=== PATIENT | male | born 1970 | race Caucasian/White ===

== ENCOUNTER → 2020-01-19 10:24 | Outpatient (BNVA) | payer MEDICARE, MEDICAID, SELFPAY | PROVIDERS: PCP Internal Medicine; Referring Provider Internal Medicine; Visit Provider Family Medicine Adult Medicine | DX: E11.40 Type 2 diabetes mellitus with diabetic neuropathy, unspecified (principal); Z79.4 Long term (current) use of insulin; E66.01 Morbid (severe) obesity due to excess calories; Z68.44 Body mass index [BMI] 60.0-69.9, adult; F17.210 Nicotine dependence, cigarettes, uncomplicated; Z79.891 Long term (current) use of opiate analgesic; Z89.511 Acquired absence of right leg below knee; Z99.3 Dependence on wheelchair | CPT/HCPCS: 99204 ==

== ENCOUNTER → 2020-02-21 11:15 | Outpatient (BNVA) | payer MEDICARE, MEDICAID, SELFPAY | PROVIDERS: PCP Internal Medicine; Referring Provider Internal Medicine; Visit Provider Family Medicine Adult Medicine | DX: G54.6 Phantom limb syndrome with pain (principal) | CPT/HCPCS: 99212 ==

== ENCOUNTER → 2020-03-22 11:08 | Outpatient (BNVA) | payer MEDICARE, MEDICAID, SELFPAY | PROVIDERS: PCP Internal Medicine; Referring Provider Internal Medicine; Visit Provider Family Medicine Adult Medicine | DX: G54.6 Phantom limb syndrome with pain (principal); E11.40 Type 2 diabetes mellitus with diabetic neuropathy, unspecified | CPT/HCPCS: 99212 ==

== ENCOUNTER 2020-04-06 17:04 | Inpatient (IN) | payer MEDICARE, MEDICAID, SELFPAY ==
--- NOTE | 2020-04-06 17:17 | XR_ITS ---
EXAMINATION: XR CHEST CLINICAL INFORMATION: Shortness of breath COMPARISON: None TECHNIQUE: Frontal view of the chest was obtained. FINDINGS: Multiple cardiac leads and wires overlie the chest. Evaluation is somewhat limited by technique and patient's body habitus. Moderate to severe cardiomegaly is noted there is some diffuse mild interstitial and vascular prominence suggesting vascular congestion and interstitial edema. No convincing evidence of overt changes of pulmonary edema. No significant pleural effusions or pneumothorax. No dense focal consolidation is noted. Regional skeleton appears intact. XR/XR chest 1V IMPRESSION: Cardiomegaly. Findings suggestive of pulmonary venous congestion and interstitial edema without definite changes to suggest overt pulmonary edema.
--- NOTE | 2020-04-06 17:17 | ECG_ITS ---
Test Reason : SOB Blood Pressure : / mmHG Vent. Rate : 088 BPM Atrial Rate : 088 BPM P-R Int : 152 ms QRS Dur : 086 ms QT Int : 336 ms P-R-T Axes : -26 040 096 degrees QTc Int : 406 ms Normal sinus rhythm Nonspecific T wave abnormality Abnormal ECG No previous ECGs available Referred By: Julien Cantu Electronically Signed By:OXANA PEDERSEN MD
--- NOTE | 2020-04-06 17:20 | ED_ITS ---
HPI - General Adult General Chief complaint: Upper Respiratory Symptoms Stated complaint: diff breathing Time Seen by Provider: 04/06/20 17:17 Source: patient and EMS Mode of arrival: EMS Limitations: no limitations History of Present Illness HPI narrative: 49-year-old male overweight, history of complicated diabetes, history of chronic pain syndrome, patient was started on Belbuca medication to help with weaning off narcotic a month ago, patient started to have difficulty breathing for a month, that slowly and progressively getting worse for the past month, patient think it is related to the new medicine that he was started months ago. Patient declined headache, chest pain, or abdominal pain. Patient is about 450 lb cannot tell if he is retaining fluid in the legs. Related Data Home Medications Medication Instructions Recorded Confirmed acetaminophen 500 mg tablet 1,000 mg PO Q8-10H PRN 01/18/20 04/06/20 aspirin 81 mg tablet,delayed 81 mg PO DAILY 01/18/20 04/06/20 release calcium carbonate 500 mg calcium 500 mg PO DAILY 01/18/20 04/06/20 (1,250 mg) tablet cholecalciferol (vitamin D3) 25 25 mcg PO DAILY 01/18/20 04/06/20 mcg (1,000 unit) capsule clonidine HCl 0.1 mg tablet 0.1 mg PO BID 01/18/20 04/06/20 cyclobenzaprine 5 mg tablet 5 mg PO TID PRN 01/18/20 04/06/20 ferrous sulfate 325 mg (65 mg 325 mg PO DAILY 01/18/20 04/06/20 iron) tablet fluticasone propionate 50 1 spray INTRANASAL BID 01/18/20 04/06/20 mcg/actuation nasal spray,suspension insulin regular hum U-500 conc 175 unit SUBCUT BID ml 01/18/20 04/06/20 melatonin 3 mg capsule 6 mg PO BEDTIME PRN 01/18/20 04/06/20 metformin 500 mg tablet 500 mg PO DAILY 01/18/20 04/06/20 omeprazole 20 mg capsule,delayed 20 mg PO BID 01/18/20 04/06/20 release pravastatin 10 mg tablet 10 mg PO BEDTIME 01/18/20 04/06/20 topiramate 100 mg tablet 100 mg PO BEDTIME 01/18/20 04/06/20 torsemide 20 mg tablet 60 mg PO DAILY tab 01/18/20 04/06/20 trazodone 50 mg tablet 50 mg PO BEDTIME PRN 01/18/20 04/06/20 facial-body wipes #384 ea 02/20/20 03/22/20 levothyroxine 37.5 mcg PO DAILY 04/06/20 04/06/20 loperamide 2 PO Q4-5H 04/06/20 Previous Rx's Medication Instructions Recorded naloxone 4 mg/actuation nasal spray 4 mg INTRANASAL Q2M PRN #2 ea 01/20/20 dicyclomine 20 mg tablet 20 mg PO QID #120 tab 02/09/20 disposable gloves #1000 ea 02/20/20 miscellaneous medical supply See Rx Instructions MISCELLANEOUS 03/12/20 .COMPLEX #1 ea buprenorphine HCl 600 mcg buccal 600 mcg BUCCAL Q12H 30 Days #60 ea 03/22/20 film morphine 15 mg immediate release 15 mg PO Q6H PRN 30 Days #120 tab 03/22/20 tablet Allergies Allergy/AdvReac Type Severity Reaction Status Date / Time penicillin V Allergy Unknown hives Verified 03/22/20 11:33 Review of Systems Review of Systems: All other systems are reviewed and are negative Constitutional: Reports as per HPI and Reports no additional constitutional complaints Eyes: Reports as per HPI and Reports no additional eye complaints Reports system reviewed and no additional complaints, except as documented Cardiovascular: Reports as per HPI and Reports no additional cardiovascular complaints Respiratory: Reports as per HPI and Reports no additional respiratory complaints Gastrointestinal: Reports as per HPI and Reports no additional gastrointestinal complaints Genitourinary: Reports no additional female genitourinary complaints Musculoskeletal: Reports no additional musculoskeletal complaints Skin/Breast: Reports system reviewed and no additional complaints, except as docu Psychiatric: Reports no additional psychiatric complaints Endocrine: Reports no additional endocrine complaints Hematologic/Lymphatic: Reports no additional hematologic/lymphatic complaints Allergic/Immunologic: Reports no additional allergic/immunologic complaints Reports system reviewed and no additional complaints, except as documented and Reports Abnormal speech present [facility] Past Medical History Medical History Diabetic neuropathy Morbid obesity Phantom limb pain Surgical History History of right lower limb amputation Hx of cholecystectomy Family History Family History Father No problems noted. Mother No problems noted. Social History Social History Alcohol intake: unknown Smoking Status: Heavy tobacco smoker Tobacco Type: Cigarette Packs Per Day: 3 Cigarettes Per Day: 60.0 Years Smoked: 25 Smoked in Last 30 Days: No Use of substances other than those prescribed or required for medical reasons: Yes Substance Use Type: Opiates Substance Use Frequency: Chronic Longstanding Last Used Substance: Just Prior to Admission Advance Directives: No Advance Directives Information Provided: Yes Physical Exam Vital Signs: Vital Signs: Last Vital Signs Temp 98.0 F 04/06/20 19:13 Pulse 84 04/06/20 19:13 Resp 20 04/06/20 19:13 BP 127/47 L 04/06/20 19:13 Pulse Ox 95 04/06/20 19:13 Body Mass Index 73.0 Vital signs have been reviewed as normal and appeared to be correct. Blood pressure normal. Heart rate normal. Respiration rate normal. Temperature n ormal. Oxygen saturation normal. Appearance: Alert. Oriented X3. No acute distress. Morbid obesity Head: Normal external exam. Normocephalic. Atraumatic. No Mcmillan signs noted. No raccoon eyes noted Eyes: PERRLA. EOMI. Conjunctiva and sclera normal. Eyelids normal. ENT: EAC normal. TM's Normal. Pharynx normal. Uvula midline. Moist mucous membranes. No trismus noted. No drooling noted. No muffled voice noted. Neck: Normal inspection. Neck supple. FROM. No adenopathy. Thyroid Normal. No meningeal signs. No neck mass noted. CVS: Normal heart rate and rhythm. Heart sound normal. No murmurs noted. Pulses normal throughout. Respiratory: No respiratory distress. Painless inspiration. Breath sounds normal. No wheezes/rales/rhonchi noted. Chest nontender. No accessory muscle usage noted or decreased air movement noted. Abdomen: Soft and nontender. Bowel sounds normal in all 4 quadrants. No distention noted. No organomegaly noted. No visible injury noted. Back: No CVA tenderness. Full range of motion noted. Skin: Skin warm and dry. Normal skin color. Normal skin turgor. No rashes/lesions/lacerations noted. Extremities: No lower extremity edema. Extremities exhibit normal range of motion. Extremities nontender. Right BKA. Neuro: Oriented X 3. No motor deficit. No sensory deficit. Reflexes normal. Course Course Course Narrative: Assessment and plan. This is a 49-year-old male morbid obese, with sleep apnea, presented with 4 weeks of intermittent shortness of breath. Patient was just started on belbuca about 4 weeks ago when the symptoms started. X-ray is suspecting congestive heart failure. Will admit the patient for further cardiac workup. Medical Decision Making Lab Data Result diagrams: 04/06/20 18:32 04/06/20 19:34 Labs: Lab Results 04/06/20 04/06/20 04/06/20 Range/Units 17:50 17:50 17:50 WBC Cancelled RBC Cancelled Hgb Cancelled Hct Cancelled MCV Cancelled MCH Cancelled MCHC Cancelled RDW Cancelled Plt Count Cancelled MPV Cancelled Immature Gran % (Auto) Cancelled Neut % (Auto) Cancelled Lymph % (Auto) Cancelled Parke % (Auto) Cancelled Eos % (Auto) Cancelled Baso % (Auto) Cancelled Lymph # (Auto) Cancelled Parke # (Auto) Cancelled Eos # (Auto) Cancelled Baso # (Auto) Cancelled Abs Immat Gran (auto) Cancelled Absolute Neuts (auto) Cancelled Absolute Nucleated RBC Cancelled Nucleated RBC % (auto) Cancelled Smear Tech's Comments D-Dimer VBG pH (7.32-7.43) VBG pCO2 mmhg VBG pO2 mmhg VBG HCO3 mmol/L VBG O2 Saturation % VBG Base Excess mmol/L Sodium Cancelled Potassium Cancelled Chloride Cancelled Carbon Dioxide Cancelled Anion Gap Cancelled BUN Cancelled Creatinine Cancelled Estim Creat Clear Calc Cancelled Estimated GFR Cancelled Random Glucose Cancelled Calcium Cancelled Total Bilirubin Cancelled Direct Bilirubin Cancelled AST Cancelled ALT Cancelled Alkaline Phosphatase Cancelled Troponin I High Sens 13.0 (<3.5-35.0) ng/L B-Natriuretic Peptide 108 H (<100) pg/mL Total Protein Cancelled Albumin Cancelled Lipase Cancelled Urine Color Urine Appearance Urine pH (5.0-8.0) Ur Specific Dr[place] (1.005-1.025) Urine Protein (NEG-TRACE) MG/DL Urine Glucose (UA) (NEG) MG/DL Urine Ketones (NEG) MG/DL Urine Blood (NEG) Urine Nitrite (NEG) Ur Leukocyte Esterase (NEG) Urine RBC (0) /HPF Urine WBC (0-4) /HPF Ur Squamous Epith Cells /LPF Urine Bacteria /LPF COVID-19 (PINKY) (Negative) COVID-19 Clin Com 04/06/20 04/06/20 04/06/20 Range/Units 17:50 17:54 18:26 WBC RBC Hgb Hct MCV MCH MCHC RDW Plt Count MPV Immature Gran % (Auto) Neut % (Auto) Lymph % (Auto) Parke % (Auto) Eos % (Auto) Baso % (Auto) Lymph # (Auto) Parke # (Auto) Eos # (Auto) Baso # (Auto) Abs Immat Gran (auto) Absolute Neuts (auto) Absolute Nucleated RBC Nucleated RBC % (auto) Smear Tech's Comments D-Dimer Cancelled VBG pH (7.32-7.43) VBG pCO2 mmhg VBG pO2 mmhg VBG HCO3 mmol/L VBG O2 Saturation % VBG Base Excess mmol/L Sodium Potassium Chloride Carbon Dioxide Anion Gap BUN Creatinine Estim Creat Clear Calc Estimated GFR Random Glucose Calcium Total Bilirubin Direct Bilirubin AST ALT Alkaline Phosphatase Troponin I High Sens (<3.5-35.0) ng/L B-Natriuretic Peptide (<100) pg/mL Total Protein Albumin Lipase Urine Color STRAW Urine Appearance CLEAR Urine pH 6.0 (5.0-8.0) Ur Specific [place] 1.015 (1.005-1.025) Urine Protein 2+ H (NEG-TRACE) MG/DL Urine Glucose (UA) NEG (NEG) MG/DL Urine Ketones NEG (NEG) MG/DL Urine Blood 2+ H (NEG) Urine Nitrite NEG (NEG) Ur Leukocyte Esterase NEG (NEG) Urine RBC 1-4 (0) /HPF Urine WBC 0-2 (0-4) /HPF Ur Squamous Epith Cells TRACE /LPF Urine Bacteria NONE /LPF COVID-19 (PINKY) Negative (Negative) COVID-19 Clin Com See Note 04/06/20 04/06/20 04/06/20 Range/Units 18:32 18:32 18:32 WBC 4.2 L RBC 3.61 L Hgb 11.1 L Hct 37.2 L MCV 103.0 H MCH 30.7 MCHC 29.8 L RDW 14.3 Plt Count 105 L MPV 9.3 L Immature Gran % (Auto) 0.5 H Neut % (Auto) 79.6 H Lymph % (Auto) 9.8 L Parke % (Auto) 8.4 Eos % (Auto) 1.7 Baso % (Auto) 0.0 Lymph # (Auto) 0.4 L Parke # (Auto) 0.4 Eos # (Auto) 0.1 Baso # (Auto) 0.0 Abs Immat Gran (auto) 0.02 Absolute Neuts (auto) 3.3 Absolute Nucleated RBC 0.020 H Nucleated RBC % (auto) 0.5 H Smear Tech's Comments VERIFIED D-Dimer 740 VBG pH 7.28 L (7.32-7.43) VBG pCO2 61 mmhg VBG pO2 51 mmhg VBG HCO3 28 mmol/L VBG O2 Saturation 81.6 % VBG Base Excess -0.1 mmol/L Sodium Potassium Chloride Carbon Dioxide Anion Gap BUN Creatinine Estim Creat Clear Calc Estimated GFR Random Glucose Calcium Total Bilirubin Direct Bilirubin AST ALT Alkaline Phosphatase Troponin I High Sens (<3.5-35.0) ng/L B-Natriuretic Peptide (<100) pg/mL Total Protein Albumin Lipase Urine Color Urine Appearance Urine pH (5.0-8.0) Ur Specific Dr[place] (1.005-1.025) Urine Protein (NEG-TRACE) MG/DL Urine Glucose (UA) (NEG) MG/DL Urine Ketones (NEG) MG/DL Urine Blood (NEG) Urine Nitrite (NEG) Ur Leukocyte Esterase (NEG) Urine RBC (0) /HPF Urine WBC (0-4) /HPF Ur Squamous Epith Cells /LPF Urine Bacteria /LPF COVID-19 (PINKY) (Negative) COVID-19 Clin Com 04/06/20 Range/Units 18:32 WBC RBC Hgb Hct MCV MCH MCHC RDW Plt Count MPV Immature Gran % (Auto) Neut % (Auto) Lymph % (Auto) Parke % (Auto) Eos % (Auto) Baso % (Auto) Lymph # (Auto) Parke # (Auto) Eos # (Auto) Baso # (Auto) Abs Immat Gran (auto) Absolute Neuts (auto) Absolute Nucleated RBC Nucleated RBC % (auto) Smear Tech's Comments D-Dimer VBG pH (7.32-7.43) VBG pCO2 mmhg VBG pO2 mmhg VBG HCO3 mmol/L VBG O2 Saturation % VBG Base Excess mmol/L Sodium Cancelled Potassium Cancelled Chloride Cancelled Carbon Dioxide Cancelled Anion Gap Cancelled BUN Cancelled Creatinine Cancelled Estim Creat Clear Calc Cancelled Estimated GFR Cancelled Random Glucose Cancelled Calcium Cancelled Total Bilirubin Cancelled Direct Bilirubin Cancelled AST Cancelled ALT Cancelled Alkaline Phosphatase Cancelled Troponin I High Sens (<3.5-35.0) ng/L B-Natriuretic Peptide (<100) pg/mL Total Protein Cancelled Albumin Cancelled Lipase Cancelled Urine Color Urine Appearance Urine pH (5.0-8.0) Ur Specific [place] (1.005-1.025) Urine Protein (NEG-TRACE) MG/DL Urine Glucose (UA) (NEG) MG/DL Urine Ketones (NEG) MG/DL Urine Blood (NEG) Urine Nitrite (NEG) Ur Leukocyte Esterase (NEG) Urine RBC (0) /HPF Urine WBC (0-4) /HPF Ur Squamous Epith Cells /LPF Urine Bacteria /LPF COVID-19 (PINKY) (Negative) COVID-19 Clin Com Imaging Data Chest x-ray: Radiologist's impression: Cardiomegaly. Findings suggestive of pulmonary venous congestion and interstitial edema without definite changes to suggest overt pulmonary edema. ECG Data Interpretation: Normal sinus rhythm at 88 beats per minute, normal axis deviation, normal intervals, nonspecific T-wave changes in V5 and V6. Discharge Plan Discharge Clinical Impression: Morbid obesity, Dyspnea, Congestive heart failure Patient Disposition: Admitted As Inpatient Prescriptions: No Action Narcan 4 mg/actuation spray,non-aerosol 4 mg intranasal Q2M PRN (Reason: opioid overdose) Qty: 2 RF: 1 dicyclomine 20 mg tablet 20 mg PO QID Qty: 120 RF: 8 (DME) facial-body wipes Misc See Rx Instructions .ROUTE .MEDSUPPLY Qty: 384 RF: 0 (DME) disposable gloves [Nitrile Exam Gloves] Misc See Rx Instructions .ROUTE .MEDSUPPLY Qty: 1000 RF: 0 miscellaneous medical supply Misc See Rx Instructions miscellaneous .COMPLEX Qty: 1 RF: 0 loperamide 1 tab 2 PO Q4-5H RF: 0 levothyroxine 75 mcg tablet 37.5 mcg PO DAILY RF: 0 acetaminophen [Tylenol Extra Strength] 500 mg tablet 1,000 mg PO Q8-10H PRN (Reason: Pain) RF: 0 aspirin [Adult Low Dose Aspirin] 81 mg tablet,delayed release (DR/EC) 81 mg PO DAILY RF: 0 calcium carbonate 500 mg calcium (1,250 mg) tablet 500 mg PO DAILY RF: 0 clonidine HCl 0.1 mg tablet 0.1 mg PO BID RF: 0 cyclobenzaprine 5 mg tablet 5 mg PO TID PRN (Reason: Pain) RF: 0 ferrous sulfate 325 mg (65 mg iron) tablet 325 mg PO DAILY RF: 0 fluticasone propionate [Allergy Relief (fluticasone)] 50 mcg/actuation spray,suspension 1 spray intranasal BID RF: 0 Humulin R U-500 (Conc) Kwikpen 500 unit/mL (3 mL) insulin pen 175 unit subcut BID RF: 0 melatonin 3 mg capsule 6 mg PO BEDTIME PRN (Reason: Sleep) RF: 0 metformin 500 mg tablet 500 mg PO DAILY RF: 0 omeprazole 20 mg capsule,delayed release(DR/EC) 20 mg PO BID RF: 0 pravastatin 10 mg tablet 10 mg PO BEDTIME RF: 0 topiramate 100 mg tablet 100 mg PO BEDTIME RF: 0 torsemide 20 mg tablet 60 mg PO DAILY RF: 0 cholecalciferol (vitamin D3) 25 mcg (1,000 unit) capsule 25 mcg PO DAILY RF: 0 trazodone 50 mg tablet 50 mg PO BEDTIME PRN (Reason: Sleep) RF: 0 morphine 15 mg tablet 15 mg PO Q6H PRN (Reason: pain) 30 Days Qty: 120 RF: 0 Belbuca 600 mcg film 600 mcg buccal Q12H 30 Days Qty: 60 RF: 0
[2020-04-06 17:21] VITALS: BP 137/54; PULSE 85; RESP 25; TEMP 36.7; O2SAT 90; BMI 73.0
[2020-04-06 18:00] VITALS: PULSE 85; O2SAT 90
[2020-04-06] MEDS: Albuterol/Iprat 2.5/0.5MG 3 ML AMPUL.NEB INHALE (18:00)
[2020-04-06 18:02] VITALS: PULSE 86; O2SAT 90
[2020-04-06 18:17] LABS: COVID-19 Test Negative (Negative)
[2020-04-06 18:25] LABS: B Type Natriuretic Peptide 108 pg/mL (<100)
[2020-04-06 18:40] LABS: Glucose Urine UA NEG (NEG); Leukocyte Esterase Urine NEG (NEG); Nitrite Urine NEG (NEG); Specific Gravity - Urine 1.015 (1.005-1.025); Urine Blood 2+ (NEG); Urine Ketones NEG (NEG); Urine Protein 2+ MG/DL (NEG-TRACE)
[2020-04-06 18:41] LABS: Eosinophils Absolute Auto 0.1 X10*3/uL (0.0-0.4); Eosinophils Percent Auto 1.7 % (0-4); Hematocrit 37.2 % (42-52); Hemoglobin 11.1 g/dl (14.0-18.0); Imm Gran Abs Auto 0.02 X10*3/uL (0.00-0.03); Imm Gran Pct Auto 0.5 % (0.0-0.4); Lymphocytes Absolute Auto 0.4 X10*3/uL (1.2-4.9); Lymphocytes Percent Auto 9.8 % (20-40); MANUAL DIFF FLAG SCAN; Mean Corpuscular HGB Conc 29.8 g/dl (31.0-36.0); Mean Corpuscular Hemoglobin 30.7 pg (27.0-33.0); Mean Platelet Volume 9.3 fL (9.4-12.4); Monocytes Absolute Auto 0.4 X10*3/uL (0.1-1.2); Monocytes Percent Auto 8.4 % (2-11); NRBC Pct Auto 0.5 /100WBC (0.0-0.2); Neutrophils Absolute Auto 3.3 X10*3/uL (2.0-8.3); Neutrophils Percent Auto 79.6 % (45-73); Platelet Count 105 X10*3/uL (160-400); Red Blood Count 3.61 X10*6/uL (4.60-5.80); Red Cell Distribution Width 14.3 % (11.0-16.0); SCAN SMEAR FLAG 1; White Blood Count 4.2 X10*3/uL (4.8-10.8)
[2020-04-06 18:42] LABS: Base Excess VBG -0.1 mmol/L; HCO3 VBG 28 mmol/L; Oxygen Saturation VBG 81.6 %; PCO2 VBG 61 mmhg; PO2 VBG 51 mmhg; pH VBG 7.28 (7.32-7.43)
[2020-04-06 18:44] LABS: Appearance Urine CLEAR; Color Urine STRAW
[2020-04-06 18:50] LABS: D Dimer 740 NG/ML
[2020-04-06 18:55] LABS: Squamous Epithelial Cell Urine TRACE /LPF; WBC Urine 0-2 /HPF (0-4)
[2020-04-06 19:04] LABS: SLIDE REVIEW VERIFIED
[2020-04-06 19:13] VITALS: BP 127/47; PULSE 84; RESP 20; TEMP 36.7; O2SAT 95
[2020-04-06] MEDS: Morphine Sulfate ER 15 MG TABLET.ER PO (19:43)
[2020-04-06 20:11] LABS: Alanine Aminotransferase 18 U/L (0-40); Albumin Level 3.2 g/dL (3.5-5.0); Alkaline Phosphatase 56 U/L (39-117); Anion Gap 10 (12-20); Aspartate Amino Transferase 17 U/L (5-37); Bilirubin Direct < 0.2 mg/dL (0.0-0.5); Bilirubin Total 0.3 mg/dL (0.0-1.0); Blood Urea Nitrogen 26 mg/dL (9-16); Calcium 7.6 mg/dL (8.4-10.2); Carbon Dioxide 29 mmol/L (22-29); Chloride 104 mmol/L (96-108); Creatinine Clr Calc Pharmacy 121.4; Estimated Glomerular Filt Rate 57; Glucose Random 129 mg/dL (60-115); Lipase 17 U/L (8-78); Potassium 4.6 mmol/l (3.3-5.1); Sodium 138 mmol/L (135-145)
[2020-04-06] MEDS: Furosemide 20 MG/2 ML VIAL IVPUSH (20:40)
[2020-04-06 20:47] VITALS: BP 131/54; PULSE 84; RESP 22; O2SAT 95
--- NOTE | 2020-04-06 22:04 | PC.NURSE ---
nurse will call back for report.
[2020-04-06 23:51] VITALS: BP 158/71; PULSE 86; RESP 18; TEMP 37; O2SAT 94
[2020-04-06 23:54] LABS: Glucose, Whole Blood 107 mg/dL (60-115)
[2020-04-07] VITALS (10 sets, daily range): BP systolic 112–158; BP diastolic 58–79; PULSE 76–98; RESP 18–20; TEMP 36.6–37; O2SAT 92–98; BMI 73.0
[2020-04-07] MEDS: Pravastatin Sodium 10 MG TABLET PO ×2 (00:12→21:19)
[2020-04-07] MEDS: Topiramate 100 MG TABLET PO ×2 (00:13→21:19)
[2020-04-07] MEDS: Melatonin 3 MG TABLET 6 MG PO ×2 (00:13→22:08)
[2020-04-07] MEDS: Dicyclomine HCl 10 MG CAPSULE 20 MG PO ×5 (00:13→21:19)
[2020-04-07] MEDS: cloNIDine HCL 0.1 MG TABLET PO ×3 (00:14→21:19)
[2020-04-07] MEDS: Heparin Sodium,Porcine 5,000 UNIT/ML VIAL 5000 UNIT SUBCUT ×4 (00:17→23:15)
[2020-04-07] MEDS: Omeprazole 20 MG CAPSULE.DR PO ×3 (00:21→16:58)
[2020-04-07] MEDS: traZODone HCL 50 MG TABLET PO ×2 (00:22→22:08)
[2020-04-07] MEDS: 0.9 % Sodium Chloride Flush 3 ML SYRINGE IVFLUSH ×4 (00:36→23:16)
[2020-04-07] MEDS: Cyclobenzaprine HCl 5 MG TABLET PO ×2 (00:36→19:59)
[2020-04-07] MEDS: Morphine Sulfate Immed Release 15 MG TABLET PO ×3 (03:32→19:59)
[2020-04-07] MEDS: Levothyroxine Sodium 75 MCG TABLET 37.5 MCG PO (05:44)
[2020-04-07 06:00] LABS: MANUAL DIFF FLAG NO
[2020-04-07 06:06] LABS: Basophils Percent Auto 0.2 % (0-2); Eosinophils Absolute Auto 0.1 X10*3/uL (0.0-0.4); Eosinophils Percent Auto 1.7 % (0-4); Hematocrit 39.9 % (42-52); Hemoglobin 11.7 g/dl (14.0-18.0); Imm Gran Abs Auto 0.04 X10*3/uL (0.00-0.03); Imm Gran Pct Auto 0.7 % (0.0-0.4); Lymphocytes Absolute Auto 0.7 X10*3/uL (1.2-4.9); Lymphocytes Percent Auto 13.8 % (20-40); Mean Corpuscular HGB Conc 29.3 g/dl (31.0-36.0); Mean Corpuscular Hemoglobin 30.9 pg (27.0-33.0); Mean Corpuscular Volume 105.3 fL (80-98); Mean Platelet Volume 9.6 fL (9.4-12.4); Monocytes Absolute Auto 0.4 X10*3/uL (0.1-1.2); Monocytes Percent Auto 7.5 % (2-11); Neutrophils Absolute Auto 4.1 X10*3/uL (2.0-8.3); Neutrophils Percent Auto 76.1 % (45-73); Platelet Count 122 X10*3/uL (160-400); Red Blood Count 3.79 X10*6/uL (4.60-5.80); Red Cell Distribution Width 14.2 % (11.0-16.0); White Blood Count 5.4 X10*3/uL (4.8-10.8)
--- NOTE | 2020-04-07 06:28 | PM.IMHP ---
History of Present Illness Date of Service: 04/06/20 Chief Complaint: shortness of breath This is a 49-year-old male with morbid obesity, diabetes, hypertension, hyperlipidemia who presents to the hospital with complaints of shortness of breath. Patient reports his symptoms have started about a month ago, he also noticed worsening lower extremity edema, orthopnea, and PND. He does have sleep apnea and uses a CPAP machine but reports that has not helped much, he denies any fever chills. He has a cough that is nonproductive. He reports about 100 lb weight gain since November. He has on and off diarrhea but not recently. He has no abdominal pain no nausea or vomiting, no urinary symptoms but reports that his scrotum is also swollen and red. On arrival to the ED hemodynamically stable with blood pressure of 149/68, respiratory rate of 25, satting 90% on room air and desatting to the 80s on minimal movement. Labs are significant for hemoglobin of 11.7, hematocrit 39.9, sodium of 138, potassium 4.6, and protein and COVID negative EKG showing sinus rhythm Past medical history: Chronic pain, hypertension, hyperlipidemia, diabetes, morbid obesity Past surgical history: Below-knee amputation of the right, hand surgery, kidney stones Family history: Significant for diabetes, cancer Social history: Comes from home, wheelchair-bound, denies any tobacco alcohol or illicit drugs Review of Systems Review of Systems: Yes all other systems are reviewed and are negative [facility] Medical History Diabetic neuropathy Morbid obesity Phantom limb pain Family History Father No problems noted. Mother No problems noted. Surgical History History of right lower limb amputation Hx of cholecystectomy Social History Alcohol intake: unknown Smoking Status: Heavy tobacco smoker Tobacco Type: Cigarette Packs Per Day: 3 Cigarettes Per Day: 60.0 Years Smoked: 25 Smoked in Last 30 Days: No Use of substances other than those prescribed or required for medical reasons: Yes Substance Use Type: Opiates Substance Use Frequency: Chronic Longstanding Last Used Substance: Just Prior to Admission Advance Directives: No Advance Directives Information Provided: Yes Meds Allergies Allergy/AdvReac Type Severity Reaction Status Date / Time penicillin V Allergy Unknown hives Verified 03/22/20 11:33 Home Medications Medication Instructions Recorded Confirmed Type acetaminophen 500 mg tablet 1,000 mg PO Q8-10H PRN 01/18/20 04/06/20 History aspirin 81 mg tablet,delayed 81 mg PO DAILY 01/18/20 04/06/20 History release calcium carbonate 500 mg calcium 500 mg PO DAILY 01/18/20 04/06/20 History (1,250 mg) tablet cholecalciferol (vitamin D3) 25 25 mcg PO DAILY 01/18/20 04/06/20 History mcg (1,000 unit) capsule clonidine HCl 0.1 mg tablet 0.1 mg PO BID 01/18/20 04/06/20 History cyclobenzaprine 5 mg tablet 5 mg PO TID PRN 01/18/20 04/06/20 History ferrous sulfate 325 mg (65 mg 325 mg PO DAILY 01/18/20 04/06/20 History iron) tablet fluticasone propionate 50 1 spray INTRANASAL BID 01/18/20 04/06/20 History mcg/actuation nasal spray,suspension insulin regular hum U-500 conc 175 unit SUBCUT BID ml 01/18/20 04/06/20 History melatonin 3 mg capsule 6 mg PO BEDTIME PRN 01/18/20 04/06/20 History metformin 500 mg tablet 500 mg PO DAILY 01/18/20 04/06/20 History omeprazole 20 mg capsule,delayed 20 mg PO BID 01/18/20 04/06/20 History release pravastatin 10 mg tablet 10 mg PO BEDTIME 01/18/20 04/06/20 History topiramate 100 mg tablet 100 mg PO BEDTIME 01/18/20 04/06/20 History torsemide 20 mg tablet 60 mg PO DAILY tab 01/18/20 04/06/20 History trazodone 50 mg tablet 50 mg PO BEDTIME PRN 01/18/20 04/06/20 History facial-body wipes #384 ea 02/20/20 03/22/20 History levothyroxine 37.5 mcg PO DAILY 04/06/20 04/06/20 History loperamide 2 PO Q4-5H 04/06/20 History Physical Exam Vital Signs and Narrative: Vital Signs: Last Vital Signs Temp 98.6 F 04/07/20 04:23 Pulse 98 04/07/20 04:23 Resp 18 04/07/20 04:23 BP 125/58 L 04/07/20 04:23 Pulse Ox 98 04/07/20 04:23 Body Mass Index 73.0 Const: Other: Morbidly obese General: cooperative and no acute distress Orientation/consciousness: patient oriented x3 Eyes: General: appearance normal, both eyes and all related structures Resp: Effort & Inspection: normal respiratory effort and able to speak in complete sentences Cardio: Rate: regular rate Rhythm: regular rhythm GI: Palpation (GI): Soft to palpation Auscultation: normal bowel sounds Skin: General skin exam: no rashes or lesions noted Neuro: General: patient oriented x3 Cognition (Neuro): normal cognition Extrem: Other: 3+ bilateral pitting edema up to the groin General: Yes normal to inspection Results Labs CBC and Chem 7: 04/07/20 04:35 04/06/20 19:34 Labs: Laboratory Results - last 24 hr 04/06/20 04/06/20 04/06/20 17:50 17:50 17:50 MCV Cancelled MCH Cancelled MCHC Cancelled RDW Cancelled Plt Count Cancelled MPV Cancelled Immature Gran % (Auto) Cancelled Neut % (Auto) Cancelled Lymph % (Auto) Cancelled [place] % (Auto) Cancelled Eos % (Auto) Cancelled Baso % (Auto) Cancelled Lymph # (Auto) Cancelled [place] # (Auto) Cancelled Eos # (Auto) Cancelled Baso # (Auto) Cancelled Abs Immat Gran (auto) Cancelled Absolute Neuts (auto) Cancelled Absolute Nucleated RBC Cancelled Nucleated RBC % (auto) Cancelled Smear Tech's Comments D-Dimer VBG pH VBG pCO2 VBG pO2 VBG HCO3 VBG O2 Saturation VBG Base Excess Anion Gap Cancelled Estim Creat Clear Calc Cancelled Estimated GFR Cancelled POC Glucose Random Glucose Cancelled Calcium Cancelled Total Bilirubin Cancelled Direct Bilirubin Cancelled AST Cancelled ALT Cancelled Alkaline Phosphatase Cancelled Troponin I High Sens 13.0 B-Natriuretic Peptide 108 H Total Protein Cancelled Albumin Cancelled Lipase Cancelled Urine Color Urine Appearance Urine pH Ur Specific [place] Urine Protein Urine Glucose (UA) Urine Ketones Urine Blood Urine Nitrite Ur Leukocyte Esterase Urine RBC Urine WBC Ur Squamous Epith Cells Urine Bacteria COVID-19 (PINKY) COVID-19 Clin Com 04/06/20 04/06/20 04/06/20 17:50 17:54 18:26 MCV MCH MCHC RDW Plt Count MPV Immature Gran % (Auto) Neut % (Auto) Lymph % (Auto) [place] % (Auto) Eos % (Auto) Baso % (Auto) Lymph # (Auto) [place] # (Auto) Eos # (Auto) Baso # (Auto) Abs Immat Gran (auto) Absolute Neuts (auto) Absolute Nucleated RBC Nucleated RBC % (auto) Smear Tech's Comments D-Dimer Cancelled VBG pH VBG pCO2 VBG pO2 VBG HCO3 VBG O2 Saturation VBG Base Excess Anion Gap Estim Creat Clear Calc Estimated GFR POC Glucose Random Glucose Calcium Total Bilirubin Direct Bilirubin AST ALT Alkaline Phosphatase Troponin I High Sens B-Natriuretic Peptide Total Protein Albumin Lipase Urine Color STRAW Urine Appearance CLEAR Urine pH 6.0 Ur Specific [place] 1.015 Urine Protein 2+ H Urine Glucose (UA) NEG Urine Ketones NEG Urine Blood 2+ H Urine Nitrite NEG Ur Leukocyte Esterase NEG Urine RBC 1-4 Urine WBC 0-2 Ur Squamous Epith Cells TRACE Urine Bacteria NONE COVID-19 (PINKY) Negative COVID-19 Clin Com See Note 04/06/20 04/06/20 04/06/20 18:32 18:32 18:32 MCV 103.0 H MCH 30.7 MCHC 29.8 L RDW 14.3 Plt Count 105 L MPV 9.3 L Immature Gran % (Auto) 0.5 H Neut % (Auto) 79.6 H Lymph % (Auto) 9.8 L [place] % (Auto) 8.4 Eos % (Auto) 1.7 Baso % (Auto) 0.0 Lymph # (Auto) 0.4 L [place] # (Auto) 0.4 Eos # (Auto) 0.1 Baso # (Auto) 0.0 Abs Immat Gran (auto) 0.02 Absolute Neuts (auto) 3.3 Absolute Nucleated RBC 0.020 H Nucleated RBC % (auto) 0.5 H Smear Tech's Comments VERIFIED D-Dimer 740 VBG pH 7.28 L VBG pCO2 61 VBG pO2 51 VBG HCO3 28 VBG O2 Saturation 81.6 VBG Base Excess -0.1 Anion Gap Estim Creat Clear Calc Estimated GFR POC Glucose Random Glucose Calcium Total Bilirubin Direct Bilirubin AST ALT Alkaline Phosphatase Troponin I High Sens B-Natriuretic Peptide Total Protein Albumin Lipase Urine Color Urine Appearance Urine pH Ur Specific [place] Urine Protein Urine Glucose (UA) Urine Ketones Urine Blood Urine Nitrite Ur Leukocyte Esterase Urine RBC Urine WBC Ur Squamous Epith Cells Urine Bacteria COVID-19 (PINKY) COVID-19 Clin Com 04/06/20 04/06/20 04/06/20 18:32 19:34 23:50 MCV MCH MCHC RDW Plt Count MPV Immature Gran % (Auto) Neut % (Auto) Lymph % (Auto) [place] % (Auto) Eos % (Auto) Baso % (Auto) Lymph # (Auto) [place] # (Auto) Eos # (Auto) Baso # (Auto) Abs Immat Gran (auto) Absolute Neuts (auto) Absolute Nucleated RBC Nucleated RBC % (auto) Smear Tech's Comments D-Dimer VBG pH VBG pCO2 VBG pO2 VBG HCO3 VBG O2 Saturation VBG Base Excess Anion Gap Cancelled 10 L Estim Creat Clear Calc Cancelled 121.4 Estimated GFR Cancelled 57 POC Glucose 107 Random Glucose Cancelled 129 H Calcium Cancelled 7.6 L Total Bilirubin Cancelled 0.3 Direct Bilirubin Cancelled < 0.2 AST Cancelled 17 ALT Cancelled 18 Alkaline Phosphatase Cancelled 56 Troponin I High Sens B-Natriuretic Peptide Total Protein Cancelled 6.0 L Albumin Cancelled 3.2 L Lipase Cancelled 17 Urine Color Urine Appearance Urine pH Ur Specific [place] Urine Protein Urine Glucose (UA) Urine Ketones Urine Blood Urine Nitrite Ur Leukocyte Esterase Urine RBC Urine WBC Ur Squamous Epith Cells Urine Bacteria COVID-19 (PINKY) COVID-19 Clin Com 04/07/20 04:35 MCV 105.3 H MCH 30.9 MCHC 29.3 L RDW 14.2 Plt Count 122 L MPV 9.6 Immature Gran % (Auto) 0.7 H Neut % (Auto) 76.1 H Lymph % (Auto) 13.8 L [place] % (Auto) 7.5 Eos % (Auto) 1.7 Baso % (Auto) 0.2 Lymph # (Auto) 0.7 L [place] # (Auto) 0.4 Eos # (Auto) 0.1 Baso # (Auto) 0.0 Abs Immat Gran (auto) 0.04 H Absolute Neuts (auto) 4.1 Absolute Nucleated RBC 0.000 Nucleated RBC % (auto) 0.0 Smear Tech's Comments D-Dimer VBG pH VBG pCO2 VBG pO2 VBG HCO3 VBG O2 Saturation VBG Base Excess Anion Gap Estim Creat Clear Calc Estimated GFR POC Glucose Random Glucose Calcium Total Bilirubin Direct Bilirubin AST ALT Alkaline Phosphatase Troponin I High Sens B-Natriuretic Peptide Total Protein Albumin Lipase Urine Color Urine Appearance Urine pH Ur Specific [place] Urine Protein Urine Glucose (UA) Urine Ketones Urine Blood Urine Nitrite Ur Leukocyte Esterase Urine RBC Urine WBC Ur Squamous Epith Cells Urine Bacteria COVID-19 (PINKY) COVID-19 Clin Com Imaging Radiologist's Impressions: Impressions Chest X-Ray 04/06/20 17:17 IMPRESSION: Cardiomegaly. Findings suggestive of pulmonary venous congestion and interstitial edema without definite changes to suggest overt pulmonary edema. Assessment and Plan (1) New onset of congestive heart failure: Status: Acute (2) Dyspnea: Qualifiers: Dyspnea type: unspecified Qualified Code(s): R06.00 - Dyspnea, unspecified Status: Acute (3) Diabetes mellitus: Problem details: 15 minute spent on telephone Status: Acute (4) Morbid obesity: Status: Acute (5) Chronic pain: Status: Acute (6) JOSE (acute kidney injury): Status: Acute This is a 49-year-old male with past medical history as above who presents to the hospital with shortness of breath found to be in CHF # dyspnea - most likely secondary to CHF exacerbation, no evidence of pneumonia and PE less likely - patient's BNP is most likely falsely low due to his obesity - chest x-ray significant for pulmonary congestion interstitial edema - high sensitivity troponin of 13, pending repeat but patient has no chest pain, EKG not suggestive of any ACS changes Plan: - will start patient on Lasix, will start with 40 IV b.i.d. but may need increase of his dose surgery depending on his output - consult Cardiology, - echocardiogram # JOSE - most likely secondary to CHF - no previous levels to compare - will start him on Lasix as above, follow kidney function, if worsens consider consulting Nephrology # hypertension - stable - continue clonidine # diabetes - patient reports poorly controlled diabetes - will start him on low-dose sliding scale insulin - diabetic diet - minute adjust insulin based on his sugars # chronic pain - continue home medications but will need to follow-up with his outpatient physician for management DVT prophylaxis: Heparin
[2020-04-07 06:30] LABS: Anion Gap 13 (12-20); Blood Urea Nitrogen 28 mg/dL (9-16); Calcium 7.7 mg/dL (8.4-10.2); Carbon Dioxide 25 mmol/L (22-29); Chloride 105 mmol/L (96-108); Creatinine Clr Calc Pharmacy 103.4; Estimated Glomerular Filt Rate 48; Glucose Random 136 mg/dL (60-115); Potassium 5.2 mmol/l (3.3-5.1); Sodium 138 mmol/L (135-145)
[2020-04-07 07:49] LABS: Glucose, Whole Blood 156 mg/dL (60-115)
[2020-04-07 08:14] LABS: Troponin-I High Sensitivity 11.6 ng/L (<3.5-35.0)
[2020-04-07] MEDS: Furosemide 40 MG/4 ML VIAL IVPUSH (08:51)
[2020-04-07] MEDS: Sodium Polystyrene Sulfon/Sorb 15 GM/60 ML ORAL.SUSP PO (08:51)
[2020-04-07] MEDS: Insulin Lispro 100 UNIT/ML 3 ML VIAL SUBCUT ×4 (08:51→21:18)
[2020-04-07] MEDS: Cholecalciferol (Vitamin D3) 25 MCG TABLET PO (08:52)
[2020-04-07] MEDS: Torsemide 20 MG TABLET 60 MG PO (08:52)
[2020-04-07] MEDS: Aspirin Enteric Coated 81 MG TABLET.DR PO (08:53)
[2020-04-07 11:29] LABS: Glucose, Whole Blood 203 mg/dL (60-115)
--- NOTE | 2020-04-07 11:44 | PM.CNCAR ---
History of Present Illness History of Present Illness Date of Service: 04/07/20 Requesting physician: Main Gonzalez Consult reason: congestive heart failure Chief complaint: CHF exacerbation Narrative: Thank you for inviting us some consult on Kenny for congestive heart failure. He is a 49-year-old male with multiple chronic medical problems came to the hospital for months of progressive shortness of breath, weight gain, orthopnea, PND and leg edema. He is admitted for management of heart failure despite his normal BNP. He is markedly obese. During the interview process he continues to not off to sleep. He does not use CPAP machine regularly at home. He denies any palpitations, chest pain. His main complain is pain chronic pain for which she sees Dr. bonds. Review of Systems Constitutional: Constitutional: Denies body ache(s), Reports daytime sleepiness, Denies fever(s), Reports snoring, Reports stops breathing during sleep and Reports weight gain Eyes: Eyes: Reports no additional eye complaints ENT: Reports system reviewed and no additional complaints, except as documented Cardiovascular: Cardiovascular: Reports Abdominal Distension, Denies chest pain, Reports leg edema, Denies palpitations, Reports dyspnea on exertion and Reports orthopnea Respiratory: Respiratory: Denies cough, Reports dyspnea on exertion and Reports snoring Gastrointestinal: Gastrointestinal: Reports bloating Genitourinary: Genitourinary: Reports no additional male genitourinary complaints Musculoskeletal: Musculoskeletal: Reports no additional musculoskeletal complaints Neurologic: Reports system reviewed and no additional complaints, except as documented Psychiatric: Psychiatric: Reports no additional psychiatric complaints Endocrine: Endocrine: Denies palpitations PMFSH Past Medical History Medical History Chronic pain Diabetic neuropathy Hypertension Morbid obesity Phantom limb pain Family History Family History Father No problems noted. Mother No problems noted. Surgical History Surgical History History of right lower limb amputation Hx of cholecystectomy Social History Social History Alcohol intake: unknown Smoking Status: Heavy tobacco smoker Tobacco Type: Cigarette Packs Per Day: 3 Cigarettes Per Day: 60.0 Years Smoked: 25 Smoked in Last 30 Days: No Use of substances other than those prescribed or required for medical reasons: Yes Substance Use Type: Opiates Substance Use Frequency: Chronic Longstanding Last Used Substance: Just Prior to Admission Currently Displaying Signs/Symptoms of Drug Intoxication Withdrawal: No Advance Directives: No Advance Directives Information Provided: Yes Do you have thoughts of harming others: None Do you have a plan to hurt others: No Plan Meds Allergies Allergy/AdvReac Type Severity Reaction Status Date / Time penicillin V Allergy Unknown hives Verified 03/22/20 11:33 Home Medications Medication Instructions Recorded Confirmed Type acetaminophen 500 mg tablet 1,000 mg PO Q8-10H PRN 01/18/20 04/06/20 History aspirin 81 mg tablet,delayed 81 mg PO DAILY 01/18/20 04/06/20 History release calcium carbonate 500 mg calcium 500 mg PO DAILY 01/18/20 04/06/20 History (1,250 mg) tablet cholecalciferol (vitamin D3) 25 25 mcg PO DAILY 01/18/20 04/06/20 History mcg (1,000 unit) capsule clonidine HCl 0.1 mg tablet 0.1 mg PO BID 01/18/20 04/06/20 History cyclobenzaprine 5 mg tablet 5 mg PO TID PRN 01/18/20 04/06/20 History ferrous sulfate 325 mg (65 mg 325 mg PO DAILY 01/18/20 04/06/20 History iron) tablet fluticasone propionate 50 1 spray INTRANASAL BID 01/18/20 04/06/20 History mcg/actuation nasal spray,suspension insulin regular hum U-500 conc 175 unit SUBCUT BID ml 01/18/20 04/06/20 History melatonin 3 mg capsule 6 mg PO BEDTIME PRN 01/18/20 04/06/20 History metformin 500 mg tablet 500 mg PO DAILY 01/18/20 04/06/20 History omeprazole 20 mg capsule,delayed 20 mg PO BID 01/18/20 04/06/20 History release pravastatin 10 mg tablet 10 mg PO BEDTIME 01/18/20 04/06/20 History topiramate 100 mg tablet 100 mg PO BEDTIME 01/18/20 04/06/20 History torsemide 20 mg tablet 60 mg PO DAILY tab 01/18/20 04/06/20 History trazodone 50 mg tablet 50 mg PO BEDTIME PRN 01/18/20 04/06/20 History facial-body wipes #384 ea 02/20/20 03/22/20 History levothyroxine 37.5 mcg PO DAILY 04/06/20 04/06/20 History loperamide 2 PO Q4-5H 04/06/20 History Physical Exam Vital Signs: Vital Signs: Last Vital Signs Temp 97.9 F 04/07/20 08:00 Pulse 76 04/07/20 08:52 Resp 20 04/07/20 08:00 BP 137/74 04/07/20 08:00 Pulse Ox 95 04/07/20 08:00 Body Mass Index 73.0 Const: General: lethargic Nutritional Appearance: obese morbidly obese Orientation/consciousness: lethargic HENMT: Head: Yes normocephalic and Yes atraumatic Eyes: General: appearance normal, both eyes and all related structures Neck: Neck: Yes trachea midline and Yes other (Extremely thick neck and JVD cannot be evaluated) Chest: Chest palpation & inspection: normal inspection of the chest Resp: Effort & Inspection: normal respiratory effort Auscultation: clear to auscultation bilaterally Cardio: Palpation: other (Cannot appreciate PMI) Rate: regular rate Rhythm: regular rhythm Heart sounds: S1 normal heart sound present and S2 normal heart sound present GI: Inspection: Yes obesity Auscultation: normal bowel sounds Skin: General skin exam: no rashes or lesions noted Neuro: General: no focal motor deficits Extrem: General: Yes amputation noted (Right below knee), No clubbing, No cyanosis, Yes edema (Significant lower extremity edema noted) and Yes venous stasis dermatitis Results Labs and Meds Result diagrams: 04/07/20 04:35 04/07/20 04:35 Lab results: Laboratory Results - last 24 hr 04/06/20 04/06/20 04/06/20 17:50 17:50 17:50 WBC Cancelled RBC Cancelled Hgb Cancelled Hct Cancelled MCV Cancelled MCH Cancelled MCHC Cancelled RDW Cancelled Plt Count Cancelled MPV Cancelled Immature Gran % (Auto) Cancelled Neut % (Auto) Cancelled Lymph % (Auto) Cancelled [place] % (Auto) Cancelled Eos % (Auto) Cancelled Baso % (Auto) Cancelled Lymph # (Auto) Cancelled [place] # (Auto) Cancelled Eos # (Auto) Cancelled Baso # (Auto) Cancelled Abs Immat Gran (auto) Cancelled Absolute Neuts (auto) Cancelled Absolute Nucleated RBC Cancelled Nucleated RBC % (auto) Cancelled Smear Tech's Comments D-Dimer VBG pH VBG pCO2 VBG pO2 VBG HCO3 VBG O2 Saturation VBG Base Excess Sodium Cancelled Potassium Cancelled Chloride Cancelled Carbon Dioxide Cancelled Anion Gap Cancelled BUN Cancelled Creatinine Cancelled Estim Creat Clear Calc Cancelled Estimated GFR Cancelled POC Glucose Random Glucose Cancelled Calcium Cancelled Total Bilirubin Cancelled Direct Bilirubin Cancelled AST Cancelled ALT Cancelled Alkaline Phosphatase Cancelled Troponin I High Sens 13.0 B-Natriuretic Peptide 108 H Total Protein Cancelled Albumin Cancelled Lipase Cancelled Urine Color Urine Appearance Urine pH Ur Specific [place] Urine Protein Urine Glucose (UA) Urine Ketones Urine Blood Urine Nitrite Ur Leukocyte Esterase Urine RBC Urine WBC Ur Squamous Epith Cells Urine Bacteria COVID-19 (PINKY) Digital Message Display 04/06/20 04/06/20 04/06/20 17:50 17:54 18:26 WBC RBC Hgb Hct MCV MCH MCHC RDW Plt Count MPV Immature Gran % (Auto) Neut % (Auto) Lymph % (Auto) [place] % (Auto) Eos % (Auto) Baso % (Auto) Lymph # (Auto) [place] # (Auto) Eos # (Auto) Baso # (Auto) Abs Immat Gran (auto) Absolute Neuts (auto) Absolute Nucleated RBC Nucleated RBC % (auto) Smear Tech's Comments D-Dimer Cancelled VBG pH VBG pCO2 VBG pO2 VBG HCO3 VBG O2 Saturation VBG Base Excess Sodium Potassium Chloride Carbon Dioxide Anion Gap BUN Creatinine Estim Creat Clear Calc Estimated GFR POC Glucose Random Glucose Calcium Total Bilirubin Direct Bilirubin AST ALT Alkaline Phosphatase Troponin I High Sens B-Natriuretic Peptide Total Protein Albumin Lipase Urine Color STRAW Urine Appearance CLEAR Urine pH 6.0 Ur Specific [place] 1.015 Urine Protein 2+ H Urine Glucose (UA) NEG Urine Ketones NEG Urine Blood 2+ H Urine Nitrite NEG Ur Leukocyte Esterase NEG Urine RBC 1-4 Urine WBC 0-2 Ur Squamous Epith Cells TRACE Urine Bacteria NONE COVID-19 (PINKY) Negative Digital Message Display See Note 04/06/20 04/06/20 04/06/20 18:32 18:32 18:32 WBC 4.2 L RBC 3.61 L Hgb 11.1 L Hct 37.2 L MCV 103.0 H MCH 30.7 MCHC 29.8 L RDW 14.3 Plt Count 105 L MPV 9.3 L Immature Gran % (Auto) 0.5 H Neut % (Auto) 79.6 H Lymph % (Auto) 9.8 L [place] % (Auto) 8.4 Eos % (Auto) 1.7 Baso % (Auto) 0.0 Lymph # (Auto) 0.4 L [place] # (Auto) 0.4 Eos # (Auto) 0.1 Baso # (Auto) 0.0 Abs Immat Gran (auto) 0.02 Absolute Neuts (auto) 3.3 Absolute Nucleated RBC 0.020 H Nucleated RBC % (auto) 0.5 H Smear Tech's Comments VERIFIED D-Dimer 740 VBG pH 7.28 L VBG pCO2 61 VBG pO2 51 VBG HCO3 28 VBG O2 Saturation 81.6 VBG Base Excess -0.1 Sodium Potassium Chloride Carbon Dioxide Anion Gap BUN Creatinine Estim Creat Clear Calc Estimated GFR POC Glucose Random Glucose Calcium Total Bilirubin Direct Bilirubin AST ALT Alkaline Phosphatase Troponin I High Sens B-Natriuretic Peptide Total Protein Albumin Lipase Urine Color Urine Appearance Urine pH Ur Specific [place] Urine Protein Urine Glucose (UA) Urine Ketones Urine Blood Urine Nitrite Ur Leukocyte Esterase Urine RBC Urine WBC Ur Squamous Epith Cells Urine Bacteria COVID-19 (PINKY) COVID-19 Clin Com 04/06/20 04/06/20 04/06/20 18:32 19:34 23:50 WBC RBC Hgb Hct MCV MCH MCHC RDW Plt Count MPV Immature Gran % (Auto) Neut % (Auto) Lymph % (Auto) [place] % (Auto) Eos % (Auto) Baso % (Auto) Lymph # (Auto) [place] # (Auto) Eos # (Auto) Baso # (Auto) Abs Immat Gran (auto) Absolute Neuts (auto) Absolute Nucleated RBC Nucleated RBC % (auto) Smear Tech's Comments D-Dimer VBG pH VBG pCO2 VBG pO2 VBG HCO3 VBG O2 Saturation VBG Base Excess Sodium Cancelled 138 Potassium Cancelled 4.6 Chloride Cancelled 104 Carbon Dioxide Cancelled 29 Anion Gap Cancelled 10 L BUN Cancelled 26 H Creatinine Cancelled 1.32 Estim Creat Clear Calc Cancelled 121.4 Estimated GFR Cancelled 57 POC Glucose 107 Random Glucose Cancelled 129 H Calcium Cancelled 7.6 L Total Bilirubin Cancelled 0.3 Direct Bilirubin Cancelled < 0.2 AST Cancelled 17 ALT Cancelled 18 Alkaline Phosphatase Cancelled 56 Troponin I High Sens B-Natriuretic Peptide Total Protein Cancelled 6.0 L Albumin Cancelled 3.2 L Lipase Cancelled 17 Urine Color Urine Appearance Urine pH Ur Specific [place] Urine Protein Urine Glucose (UA) Urine Ketones Urine Blood Urine Nitrite Ur Leukocyte Esterase Urine RBC Urine WBC Ur Squamous Epith Cells Urine Bacteria COVID-19 (PINKY) COVID-19 Clin Com 04/07/20 04/07/20 04/07/20 04:35 04:35 07:17 WBC 5.4 RBC 3.79 L Hgb 11.7 L Hct 39.9 L MCV 105.3 H MCH 30.9 MCHC 29.3 L RDW 14.2 Plt Count 122 L MPV 9.6 Immature Gran % (Auto) 0.7 H Neut % (Auto) 76.1 H Lymph % (Auto) 13.8 L [place] % (Auto) 7.5 Eos % (Auto) 1.7 Baso % (Auto) 0.2 Lymph # (Auto) 0.7 L [place] # (Auto) 0.4 Eos # (Auto) 0.1 Baso # (Auto) 0.0 Abs Immat Gran (auto) 0.04 H Absolute Neuts (auto) 4.1 Absolute Nucleated RBC 0.000 Nucleated RBC % (auto) 0.0 Smear Tech's Comments D-Dimer VBG pH VBG pCO2 VBG pO2 VBG HCO3 VBG O2 Saturation VBG Base Excess Sodium 138 Potassium 5.2 H Chloride 105 Carbon Dioxide 25 Anion Gap 13 BUN 28 H Creatinine 1.55 H Estim Creat Clear Calc 103.4 Estimated GFR 48 POC Glucose Random Glucose 136 H Calcium 7.7 L Total Bilirubin Direct Bilirubin AST ALT Alkaline Phosphatase Troponin I High Sens 11.6 B-Natriuretic Peptide Total Protein Albumin Lipase Urine Color Urine Appearance Urine pH Ur Specific [place] Urine Protein Urine Glucose (UA) Urine Ketones Urine Blood Urine Nitrite Ur Leukocyte Esterase Urine RBC Urine WBC Ur Squamous Epith Cells Urine Bacteria COVID-19 (PINKY) COVID-19 [employer] Com 04/07/20 04/07/20 07:45 11:25 WBC RBC Hgb Hct MCV MCH MCHC RDW Plt Count MPV Immature Gran % (Auto) Neut % (Auto) Lymph % (Auto) [place] % (Auto) Eos % (Auto) Baso % (Auto) Lymph # (Auto) [place] # (Auto) Eos # (Auto) Baso # (Auto) Abs Immat Gran (auto) Absolute Neuts (auto) Absolute Nucleated RBC Nucleated RBC % (auto) Smear Tech's Comments D-Dimer VBG pH VBG pCO2 VBG pO2 VBG HCO3 VBG O2 Saturation VBG Base Excess Sodium Potassium Chloride Carbon Dioxide Anion Gap BUN Creatinine Estim Creat Clear Calc Estimated GFR POC Glucose 156 H 203 H Random Glucose Calcium Total Bilirubin Direct Bilirubin AST ALT Alkaline Phosphatase Troponin I High Sens B-Natriuretic Peptide Total Protein Albumin Lipase Urine Color Urine Appearance Urine pH Ur Specific [place] Urine Protein Urine Glucose (UA) Urine Ketones Urine Blood Urine Nitrite Ur Leukocyte Esterase Urine RBC Urine WBC Ur Squamous Epith Cells Urine Bacteria COVID-19 (PINKY) COVID-19 Clin Com EKG shows normal sinus rhythm nonspecific ST changes. Chest x-ray consistent with congestive heart failure Assessment and Plan (1) Congestive heart failure: Qualifiers: Heart failure chronicity: unspecified Heart failure type: unspecified Qualified Code(s): I50.9 - Heart failure, unspecified Status: Acute Agree with the admitting diagnosis of congestive heart failure predominantly right-sided heart failure in this man with morbid obesity and high likelihood of underlying significant sleep apnea that is untreated, restrictive pulmonary defect consistent with Pickwickian syndrome and cor pulmonale. Will require an echocardiogram to assess for LV systolic and diastolic function as well as to evaluate for right ventricular size and function and pulmonary hypertension. This will be scheduled today. BNP is falsely negative which is very often the case in patient with morbid obesity. Clinically appears to be fluid overloaded by leg edema. Would switch him to IV Lasix drip at 5 mg an hour and uptitrate. Strict intake and output chart needs to be pursued. Perform a blood gas to evaluate for hypercarbic respiratory feel given that he is obtunded. Would require BiPAP therapy at nighttime. Pulmonary consult should be obtained as well. JOSE should improve with diuresis. Prognosis is guarded. Continue current blood pressure regimen. Will follow the patient.
--- NOTE | 2020-04-07 12:56 | MHC.CM.PN ---
DC PLAN IS TO RESUME HIS 80 HRS NA WEEK SERVICES 40 AT NIGHT AND 40 DAYTIME HRS PT FEELS HE WILL REQUIRE AN AMB HOME
--- NOTE | 2020-04-07 16:08 | P.PNIM_ITS ---
Subjective Subjective Date of Service: 04/07/20 Interval History: Seen in f/u for heart failure exacerbation in setting of morbid obesity BMI 73 Gen: no fever Resp: + sob, no cough CV: no chest, marked leg LUNA GI: No n/v, no abd pain Neuro: No confusion Physical Exam Vital Signs: Vital Signs: Last Vital Signs Temp 98.2 F 04/07/20 15:41 Pulse 86 04/07/20 15:41 Resp 20 04/07/20 15:41 BP 143/79 H 04/07/20 15:41 Pulse Ox 92 04/07/20 15:41 Body Mass Index 73.0 Const: Other: Constitutional Awake and Alert, No apparent distress Neck Supple, No lymphadenopathy Cardiovascular RRR, S1 S2, No S3 S4, 3+ pedal edema Respiratory Lungs diminish breath sounds Gastrointestinal Non tender, Non-distended Skin No rash, right BKA Neurological Alert & oriented x3 Psychological Appropriate affect Objective Data Current Medications Generic Name Dose Route Start Last Admin Trade Name Freq PRN Reason Stop Dose Admin Acetaminophen 650 mg 04/06/20 23:07 Acetaminophen 325 Mg Tablet PO Q6H PRN Pain, Mild (Pain Scale 1-3) Aspirin 81 mg 04/07/20 09:00 04/07/20 08:53 Aspirin Enteric Coated 81 Mg Tablet.Dr PO 81 mg DAILY REGGIE Administration Calcium Carbonate 500 mg 04/07/20 09:00 04/07/20 08:52 Calcium Carbonate 500 Mg Tablet PO 500 mg DAILY REGGIE Administration Clonidine HCl 0.1 mg 04/06/20 23:07 04/07/20 08:52 Clonidine Hcl 0.1 Mg Tablet PO 0.1 mg BID REGGIE Administration Protocol Cyclobenzaprine HCl 5 mg 04/06/20 23:07 04/07/20 00:36 Cyclobenzaprine Hcl 5 Mg Tablet PO 5 mg TID PRN Administration Pain Dicyclomine HCl 20 mg 04/06/20 23:07 04/07/20 13:04 Dicyclomine Hcl 10 Mg Capsule PO 20 mg QID REGGIE Administration Docusate Sodium 100 mg 04/06/20 23:07 Docusate Sodium 100 Mg Capsule PO DAILY PRN Constipation Furosemide 40 mg 04/07/20 08:00 04/07/20 08:51 Furosemide 40 Mg/4 Ml Vial IVPUSH 40 mg BID@0800,1700 [facility] Administration Protocol Heparin Sodium (Porcine) 5,000 unit 04/07/20 00:00 04/07/20 08:51 Heparin Sodium,Porcine 5,000 Unit/Ml Vial SUBCUT 5,000 unit Q8H REGGIE Administration Insulin Human Lispro 0 unit 04/07/20 07:30 04/07/20 13:06 Insulin Lispro 100 Unit/Ml 3 Ml Vial SUBCUT 4 unit QIDACHS REGGIE Administration Protocol Levothyroxine Sodium 37.5 mcg 04/07/20 06:30 04/07/20 05:44 Levothyroxine Sodium 75 Mcg Tablet PO 37.5 mcg DAILY@0630 REGGIE Administration Melatonin 6 mg 04/06/20 23:07 04/07/20 00:13 Melatonin 3 Mg Tablet PO 6 mg BEDTIME PRN Administration Sleep Morphine Sulfate 15 mg 04/06/20 23:07 04/07/20 13:05 Morphine Sulfate Immed Release 15 Mg Tablet PO 15 mg Q6H PRN Administration pain Naloxone HCl 4 mg 04/06/20 23:07 Naloxone Hcl Nasal 4 Mg [place] NOSTRILALT Q2M PRN opioid overdose Omeprazole 20 mg 04/06/20 23:07 04/07/20 05:45 Omeprazole 20 Mg Capsule.Dr PO 20 mg BID@0630,1630 [facility] Administration Ondansetron HCl 4 mg 04/06/20 23:07 Ondansetron Hcl 4 Mg/2 Ml Vial IVPUSH Q8H PRN Nausea and Vomiting Pharmacy Consult 1 each 04/06/20 20:04 Consult Rx Perform Med Rec MISCELLANE ONCE PRN Consult order Pravastatin Sodium 10 mg 04/06/20 23:07 04/07/20 00:12 Pravastatin Sodium 10 Mg Tablet PO 10 mg BEDTIME REGGIE Administration Sodium Chloride 3 ml 04/07/20 00:00 04/07/20 08:53 0.9 % Sodium Chloride Flush 3 Ml Syringe IVFLUSH 3 ml QSHIFT REGGIE Administration Topiramate 100 mg 04/06/20 23:07 04/07/20 00:13 Topiramate 100 Mg Tablet PO 100 mg BEDTIME REGGIE Administration Torsemide 60 mg 04/07/20 08:00 04/07/20 08:52 Torsemide 20 Mg Tablet PO 60 mg DAILY@0800 REGGIE Administration Protocol Trazodone HCl 50 mg 04/06/20 23:07 04/07/20 00:22 Trazodone Hcl 50 Mg Tablet PO 50 mg BEDTIME PRN Administration Sleep Vitamin D 25 mcg 04/07/20 09:00 04/07/20 08:52 Cholecalciferol (Vitamin D3) 25 Mcg Tablet PO 25 mcg DAILY REGGIE Administration Labs CBC & Chem 7: 04/07/20 04:35 04/07/20 04:35 Assessment and Plan (1) New onset of congestive heart failure: Status: Acute (2) Dyspnea: Status: Acute (3) Diabetes mellitus: Problem details: 15 minute spent on telephone Status: Acute (4) Morbid obesity: Status: Acute (5) Chronic pain: Status: Acute (6) JOSE (acute kidney injury): Status: Acute Assessment and Plan: 49-year-old male super morbi obese BMI 73, DM, chronic right heart heart failure, HTN, chronic pain syndrome here with increasing SOB and totoal body fl uid overload/likely right heart failure and JOSE # dyspnea - most likely secondary to CHF exacerbation, and hypoventilation syndrom -treate underlying issues as below. #Acute heart failure likely right heart failure- -Stop oral diuretics and start IV Lasix drip at 5 -Echo to assess heart function -Cardiology will floow # JOSE likely cardiorenal syndrome and bound to improve with agresive diuresis and if not improving then renal consult # hypertension - stable - continue clonidine # diabetes - patient reports poorly controlled diabetes -he uses U-500 insulin 175 units BID , will change to formulary equivalent and Add SSI # chronic pain--He uses buprenorphine (Bel[place]uca) 600 mcg Q12H will changee subutex if needed while here? - continue home medications but will need to follow-up with his outpatient physician for management #Hypothyroidism--continue levothyroxine #HLD on Pravastatin DVT prophylaxis: Heparin
[2020-04-07 16:47] LABS: Glucose, Whole Blood 250 mg/dL (60-115)
--- NOTE | 2020-04-07 18:45 | PC.NURSE ---
Patient OOB to chair today. Unable to bear weight and transfer to chair. Patient was a total assist with help of 4 staff members to slide to recliner. PT consult made. Lasix gtt started. Moser catheter placed. Medicated with PRN morphine for back pain with positive effect. Vitals stable. Will continue to monitor.
[2020-04-07] MEDS: Furosemide 500 MG in Container,Empty 0 ML IVCONT (19:03)
[2020-04-07 21:20] LABS: Glucose, Whole Blood 166 mg/dL (60-115)
--- NOTE | 2020-04-07 23:07 | CA_ITS ---
Transthoracic Echocardiogram Patient (Last, First, Middle): Kenny FERNANDO JR, G Gender: Male Date of : 1970 Age: 49 Procedure Date: 04/07/2020 Procedure Type: Transthoracic Echocardiogram Location: [facility] – [place] Height: 172.72 cm Weight: 217.73 kg BSA: 2.97 m2 Heart Rate: bpm BP: 137 / 74 mmHg Shank Cutter: KATHLEEN Flower MD: Samina Izquierdo MD Trailer Truck Driver: Pa Saxena MD Symptoms: SOB, chf exacerbation Study Quality: Technically Difficult ECG Rhythm: Sinus Conclusions: - 1. Technically extremely limited study despite use of contrast agent due to patient's body habitus 2. Right-sided chambers not evaluated 3. LV systolic function appears preserved with LVEF of greater than 50% with pseudonormal filling with mild LVH 4. Cardiac valves not well evaluated 5. RV systolic pressure not calculated Findings Procedure Information Contrast agent, definity, is being given per protocol without apparent complications. Left Ventricle The left ventricle was not well visualized. There is mildly increased left ventricular wall thickness. Regional wall motion abnormalities can not be excluded due to suboptimal endocardial definition. Spectral Doppler is indicative of a pseudonormal filling pattern. On some views LV systolic function appears preserved with LVEF of greater than 50% Right Ventricle The right ventricle was not well visualized. Atria The left atrium was not well visualized. Interatrial shunt cannot be excluded. The right atrium was not well visualized. Aortic Valve The aortic valve was not well visualized. There is no aortic valve stenosis. Mitral Valve The mitral valve was not well visualized. There is no mitral valve regurgitation. Pulmonic Valve The pulmonic valve was not well visualized. Tricuspid Valve The tricuspid valve was not well visualized. Tricuspid regurgitation envelope is inadequate for calculation of right ventricular systolic pressure. Great Vessels The aorta was not well visualized. The pulmonary artery was not well visualized. Venous The inferior vena cava was not well visualized. Pericardium/Pleural The pericardium was not well visualized. Prior Study Comparison No prior study available for comparison. Measurements 2D Linear Measurements IVSd: 1.19 0.6-0.9/0.6-1.0 cm LVIDd: 5.60 3.9-5.3/4.2-5.9 cm LVIDd Index: 1.89 2.4-3.2/2.2-3.1 cm/m2 LVIDs: 3.89 2.0-3.6 cm LVPWd: 1.23 0.7-1.1 cm Ao Root: 3.60 2.1-3.5 cm LA Diam: 4.20 2.7-3.8/3.0-4.0 cm LAIDs Index: 1.41 1.5-2.3 cm/m2 LV Mass: 353.84 67-162/88-224 g LV Mass Index: 119.14 43-95/49-115 g/m2 LVOT Diam: 2.10 3.0+(-)1.3 cm Mitral Valve MV Pk E: 1.15 MV PK A: 0.61 MV Decel Time: 162.00 E/A: 1.90 E'Lateral: 11.10 E'Medial: 9.67 E/E' Med: 11.90 E/E' Lat: 10.40 PHT: 47.00 MVA PHT: 4.68 Decel [place]: 7.08 Aortic Valve AoV Pk Alex: 1.22 AoV Mn Alex: 0.79 AoV VTI: 0.23 AoV Pk Grad: 6.00 Aov Mn Grad: 3.00 LUCINA Cont.VTI: 3.08 LVOT LVOT Pk Alex: 0.94 LVOT Mn Alex: 0.61 LVOT VTI: 0.21 LVOT Pk Grad: 4.00 LVOT Mn Grad: 2.00 LVOT Diam: 2.10 LVOT Area: 3.46 Diastolic Function MV Pk E: 1.15 MV Pk A: 0.61 E/A: 1.90 E'Medial: 9.67 E/E' Med: 11.90 E' Laterial: 11.10 E/E' Lat: 10.40 Great Vessels Aorta Ao Root-2D: 3.60 2.0-3.7 cm Ao Asc: 3.10 2.1-3.4 cm Ao Arch: 2.70 Updated in Other Vendor System with Status of Final Pa Saxena MD electronically signed on 04/08/2020 12:29:11 PM with status of Final
[2020-04-08] VITALS (17 sets, daily range): BP systolic 116–171; BP diastolic 45–111; PULSE 85–99; RESP 14–28; TEMP 36.2–37.1; O2SAT 6–100; BMI 71.1
--- NOTE | 2020-04-08 | XR_ITS ---
EXAMINATION: XR CHEST CLINICAL INFORMATION: Right IJ place. COMPARISON: 04/06/2020 TECHNIQUE: Frontal view of the chest was obtained. FINDINGS: Markedly rotated positioning. Right IJ catheter, tip in the expected region of the mid/distal SVC. Cardiomegaly. No pneumothorax. Mild vascular congestion and perhaps mild interstitial edema. Low lung volumes. No confluent consolidation is seen. XR/XR chest 1V IMPRESSION: Right IJ catheter, tip in the expected region of the mid/distal SVC. Rotated positioning limits evaluation. Recommend repeat radiograph with better positioning. Mild vascular congestion and perhaps mild interstitial edema.
[2020-04-08] MEDS: Levothyroxine Sodium 75 MCG TABLET 37.5 MCG PO (05:36)
[2020-04-08] MEDS: Omeprazole 20 MG CAPSULE.DR PO (05:36)
--- NOTE | 2020-04-08 06:09 | PC.NURSE ---
ASSUMED CARE AT 2300. PT ON 3L NC THROUGHOUT DAY MAINTAINING 02 SATS IN THE 90S. PT BEGAN DESATTING INTO LOW 80S AT NIGHT WITH 02 INCREASED TO 5L NC. MOUTHBREATHER, PLACED ON 40% VENTI OVERNIGHT WITH SATS OF 92-93%. PT CONTINUES TO BE A&OX3 BUT REMOVES MASK AT TIMES. TELESITTER IN PLACE. PT REPORTS NONCOMPLIANCE W CPAP AT HOME. DRAKE PLACED YESTERDAY. DRAINING PUNCH COLORED URINE W CLOTS. OUTPUT OF 900CC FROM [id number] ON LASIX DRIP.
[2020-04-08 07:39] LABS: Glucose, Whole Blood 203 mg/dL (60-115)
[2020-04-08] MEDS: 0.9 % Sodium Chloride Flush 3 ML SYRINGE IVFLUSH ×2 (09:19→16:07)
[2020-04-08] MEDS: Heparin Sodium,Porcine 5,000 UNIT/ML VIAL 5000 UNIT SUBCUT ×2 (09:29→16:07)
[2020-04-08 09:30] LABS: Anion Gap 10 (12-20); Blood Urea Nitrogen 33 mg/dL (9-16); Calcium 7.7 mg/dL (8.4-10.2); Carbon Dioxide 29 mmol/L (22-29); Chloride 105 mmol/L (96-108); Creatinine Clr Calc Pharmacy 94.2; Estimated Glomerular Filt Rate 44; Glucose Random 220 mg/dL (60-115); Potassium 5.4 mmol/l (3.3-5.1); Sodium 139 mmol/L (135-145)
--- NOTE | 2020-04-08 09:34 | PC.NURSE ---
Addendum entered by Leighann Lane RN 04/08/20 14:37: ABGS 7.22, 79, 81, 31 - patient becoming increasingly lethargic and unable to stay awake. Dr Gonzalez at bedside. Decision made to transfer patient to ICU. RT at bedside and zoll placed for transport. Patient arousable but remaining lethargic - Family updated by this RN. Current vitals: HR 86 SR, RR 18 97% O2 on Bipap 18/6 35% Fio2, BP 157/70. Will continue to monitor. Addendum entered by Leighann Lane RN 04/08/20 13:16: 1300 - PATIENT MORE LETHERGIC/DROWSY - UNABLE TO STAY AWAKE. CURRENTLY ON BIPAP 16/6 35% - VOLUMNES 580-650. STAT ABGS ORDERED AND SENT - DR GONZALEZ AT BEDSIDE FOR ASSESSMENT. Addendum entered by Leighann Lane RN 04/08/20 11:46: Terminal Superintendent and hospitalist at bedside - patient okay to remain on IMC unit per Dr Ellison. Nursing first line supervisor notified. Patient drowsy but arousable at this time. Patient tolerating Bipap mask well. If patient becomes more somnolent plan for repeat ABGs at 1400 per food tester. Will continue to monitor. Addendum entered by Leighann Lane RN 04/08/20 10:11: Bipap placed by RT - ABGS critical ph 7.16, pCo2 89 - MD notified. Patient yelling out, ripped Bipap mask off, requesting pain medications for back pain. This RN went to place mask back - patient placed arm up with hand in fist position. MD and nursing first line supervisor at bedside. Pain medication ordered and administered. Patient repositioned. Will continue to monitor. Original Note: This Rn at bedside - patient very lethargic/drowsy, arousable to tactile stimuli but unable to stay awake. MD notified via tiger text - Stat ABGs ordered and rescue Bipap to be placed. RT at bedside now obtaining ABG's. Patient unable to swallow medications safely at this time. Insulin held due to inability to consume breakfast. Urine output dark red with clots - MD aware. Large sizewise bed ordered. Will continue to monitor.
--- NOTE | 2020-04-08 09:49 | P.PNIM_ITS ---
Subjective Subjective Date of Service: 04/11/20 Interval History: Seen in f/u for heart failure exacerbation in setting of morbid obesity BMI 73. He is somnolent this morning, didn't use bipap last night, he is easily arousable. ABG shows pH of 7.16 PCO2 89. He has has woken up now and becoming more agresive complaining of excruciating pain and wants his pain medication--he is on chronic pain med at baseline Gen: no fever Resp: + sob, no cough CV: no chest, marked leg LUNA GI: No n/v, no abd pain Neuro: No confusion Physical Exam Vital Signs: Vital Signs: Last Vital Signs Temp 97.2 F 04/08/20 07:37 Pulse 88 04/08/20 07:37 Resp 18 04/08/20 07:37 BP 157/74 H 04/08/20 07:37 Pulse Ox 94 04/08/20 07:37 Body Mass Index 71.1 Const: Other: Constitutional Awake and Alert, in pain Neck Supple, hard to tell if there is JVD Cardiovascular RRR, S1 S2, No S3 S4, 3+ pedal edema Respiratory Lungs diminish breath sounds Gastrointestinal Non tender, Non-distended Skin No rash, right BKA Neurological Alert & oriented x3 Psychological Appropriate affect Objective Data Current Medications Generic Name Dose Route Start Last Admin Trade Name Almaz PRN Reason Stop Dose Admin Acetaminophen 650 mg 04/06/20 23:07 Acetaminophen 325 Mg Tablet PO Q6H PRN Pain, Mild (Pain Scale 1-3) Aspirin 81 mg 04/07/20 09:00 04/08/20 09:20 Aspirin Enteric Coated 81 Mg Tablet.Dr PO Not Given DAILY [facility] Calcium Carbonate 500 mg 04/07/20 09:00 04/08/20 09:20 Calcium Carbonate 500 Mg Tablet PO Not Given DAILY [facility] Clonidine HCl 0.1 mg 04/06/20 23:07 04/08/20 09:20 Clonidine Hcl 0.1 Mg Tablet PO Not Given BID [facility] Protocol Cyclobenzaprine HCl 5 mg 04/06/20 23:07 04/07/20 19:59 Cyclobenzaprine Hcl 5 Mg Tablet PO 5 mg TID PRN Administration Pain Dicyclomine HCl 20 mg 04/06/20 23:07 04/08/20 09:20 Dicyclomine Hcl 10 Mg Capsule PO Not Given QID [facility] Docusate Sodium 100 mg 04/06/20 23:07 Docusate Sodium 100 Mg Capsule PO DAILY PRN Constipation Heparin Sodium (Porcine) 5,000 unit 04/07/20 00:00 04/08/20 09:29 Heparin Sodium,Porcine 5,000 Unit/Ml Vial SUBCUT 5,000 unit Q8H REGGIE Administration Furosemide 500 mg/ IV 50 mls @ 0.5 mls/hr 04/07/20 16:15 04/07/20 19:03 Miscellaneous Supplies IVCONT 5 mg/hr .Q24H REGGIE 0.5 mls/hr Administration 5 MG/HR Insulin Human Lispro 0 unit 04/07/20 07:30 04/08/20 09:19 Insulin Lispro 100 Unit/Ml 3 Ml Vial SUBCUT Not Given QIDACHS [facility] Protocol Levothyroxine Sodium 37.5 mcg 04/07/20 06:30 04/08/20 05:36 Levothyroxine Sodium 75 Mcg Tablet PO 37.5 mcg DAILY@0630 [facility] Administration Melatonin 6 mg 04/06/20 23:07 04/07/20 22:08 Melatonin 3 Mg Tablet PO 6 mg BEDTIME PRN Administration Sleep Morphine Sulfate 15 mg 04/06/20 23:07 04/07/20 19:59 Morphine Sulfate Immed Release 15 Mg Tablet PO 15 mg Q6H PRN Administration pain Naloxone HCl 4 mg 04/06/20 23:07 Naloxone Hcl Nasal 4 Mg [place] NOSTRILALT Q2M PRN opioid overdose Omeprazole 20 mg 04/06/20 23:07 04/08/20 05:36 Omeprazole 20 Mg Capsule. PO 20 mg BID@0630,1630 [facility] Administration Ondansetron HCl 4 mg 04/06/20 23:07 Ondansetron Hcl 4 Mg/2 Ml Vial IVPUSH Q8H PRN Nausea and Vomiting Pharmacy Consult 1 each 04/06/20 20:04 Consult Rx Perform [facility] Rec MISCELLANE ONCE PRN Consult order Pravastatin Sodium 10 mg 04/06/20 23:07 04/07/20 21:19 Pravastatin Sodium 10 Mg Tablet PO 10 mg BEDTIME REGGIE Administration Sodium Chloride 3 ml 04/07/20 00:00 04/08/20 09:19 0.9 % Sodium Chloride Flush 3 Ml Syringe IVFLUSH 3 ml QSHIFT REGGIE Administration Topiramate 100 mg 04/06/20 23:07 04/07/20 21:19 Topiramate 100 Mg Tablet PO 100 mg BEDTIME REGGIE Administration Trazodone HCl 50 mg 04/06/20 23:07 04/07/20 22:08 Trazodone Hcl 50 Mg Tablet PO 50 mg BEDTIME PRN Administration Sleep Vitamin D 25 mcg 04/07/20 09:00 04/08/20 09:20 Cholecalciferol (Vitamin D3) 25 Mcg Tablet PO Not Given DAILY REGGIE Labs CBC & Chem 7: 04/11/20 05:05 04/11/20 05:05 Assessment and Plan (1) New onset of congestive heart failure: Status: Acute (2) Dyspnea: Status: Acute (3) Diabetes mellitus: Problem details: 15 minute spent on telephone Status: Acute (4) Morbid obesity: Status: Acute (5) Chronic pain: Status: Acute (6) JOSE (acute kidney injury): Status: Acute Assessment and Plan: 49-year-old male super morbi obese BMI 73, DM, chronic right heart heart failure, HTN, chronic pain syndrome here with increasing SOB and totoal body fluid overload/likely right heart failure and JOSE #Acute hypoxic hypercarbic respiratoyf failure due to hypOventilation syndrome pH is 7.16 and bicap of 89 -BiPAP and closely monitored - I will talk to ICU about him # Dyspnea - most likely secondary to CHF exacerbation, and hypoventilation syndrome -treate underlying issues as below. #Acute heart failure likely right heart failure- -Continue Lasix drip -Cardiology to review echo # JOSE likely cardiorenal syndrome and bound to improve with agresive diuresis and if not improving then renal consult -?need for US #Hematuria--Crowder has dark blood, no active bleed, likely from traumatic crowder insertion # hypertension - stable - continue clonidine # diabetes - patient reports poorly controlled diabetes -he uses U-500 insulin 175 units BID ,changed to formulary equivalent and Add SSI # chronic pain--He uses buprenorphine (Bel[place]uca) 600 mcg Q12H will changee subutex if needed while here? - continue home medications but will need to follow-up with his outpatient physician for management -morphine for acute pain and montor closely as can affect respiratory failure #Hypothyroidism--continue levothyroxine #HLD on Pravastatin DVT prophylaxis: Heparin
[2020-04-08 09:50] LABS: ABG PCO2 89 mmhg (32-45); Base Excess ABG 0.1; HCO3 ABG 31 mmol/l (22-26); PO2 ABG 93 mmhg (83-108); Pt Ventilation O2% 40%
[2020-04-08 09:51] LABS: Blood Gas Serial # 5396; Oxygen Saturation ABG 93.8 %
[2020-04-08 09:52] LABS: pH ABG 7.16 (7.35-7.45)
[2020-04-08] MEDS: Morphine Sulfate 4 MG/ML CARTRIDGE 3 MG IVPUSH (10:09)
--- NOTE | 2020-04-08 11:40 | P.PNCC_ITS ---
Critical Care Event Note Summary Code activated: No Narrative: I was asked by Dr. Gonzalez to look at Mr. Diego feliciano of decreased mental status with hypercarbia. The patient is a 49 yo man with super morbid obesity (5?8?, 212 kg), DM, HTN, chronic lymphedema, chronic pain, h/o kidney stones, and s/p Rt. BKA. Had been on chronic opiates recently (if not currently). Was started on buprenorphine about 1 month ago. Noncompliant with CPAP at home. Presented to the ED with SOB on Apr 06. c/o worsening SOB x 1 month. Per [facility] records, RR was 16-18, Sat was 90% on room air in the ED. Bicarb 29, BUN/creat 26/1.3. BNP 108. Chest exam negative. CXR (my reading) showed cardiomegaly with huge heart, prob mostly right heart; lung hopson suggest interstitial prominence, but it?s a hard call. The patient was admitted to Medicine and started on Lasix. The patient was seen by Dr. Saxena. He agreed with the diagnosis of predominantly right-sided heart failure, Pickwickian syndrome and cor pulmonale. He noted that the BNP is falsely negative very often in patients with morbid obesity. He suggested that acute kidney injury would improve with diuresis. BUN/creat this morning was up to 28/1.5. Bicarb was 25, K was 5.2 (up from 4.6 on admission). The patient was started on a Lasix drip yesterday 5 mg/hour. Echo done yesterday was reported as follows: - 1. Technically extremely limited study despite use of contrast agent due to patient's body habitus. - 2. Right-sided chambers not evaluated [unable to be visualized] - 3. LV systolic function appears preserved with LVEF of greater than 50% with pseudonormal filling with mild LVH - 4. Cardiac valves not well evaluated - 5. RV systolic pressure not [unable to be] calculated This morning BUN/creat up to 33/1.6. Bicarb 29, K 5.4. Was somnolent on exam this morning. ABG on 35% venti mask showed 7.22/79/81/+1. He was put on BiPAP 16/6/40% and I was called to see him. I examined him with Dr. Gonzalez. On my exam, he?s readily arousable, good speech, with intact mental status. Breathing easy on the BiPAP setting above, with RR about 17, Vt 800cc, Ve 12.5L. No visible JVD (has no neck). Marked LLE lymphedema. IMPRESSION: 1. Super morbid obesity to 2. Acute hypoxemic and hypercarbic respiratory failure secondary to above. (I.e. Pickwickian syndrome/obesity hypoventilation syndrome.) 3. Undoubtedly has right heart failure secondary to cor pulmonale. 4. Acute kidney injury secondary to above. Probably has cardiorenal syndrome. Agree with Dr. Saxena that he needs diuresis. Would increase the Lasix to 10 mg/hour. Suggest Renal consult. With the patient's renal indices worsening on the Lasix infusion, prognosis is grim. Will transfer to ICU for closer monitoring and management of his resp status. Critical care time: 40 min. ([id number]). This case had a high probability of a clinically significant, sudden, or life threatening deterioration of this patient's condition which required my full and direct attention, intervention and personal management. Critical Care Time (minutes): 0
--- NOTE | 2020-04-08 11:43 | PM.CNNEP ---
History of Present Illness Reason for Consult Consult date: 04/08/20 Reason for consult: JOSE Chief Complaint Chief complaint: CHF exacerbation History of Present Illness Narrative: 49 y/o morbidly obeses ( BMI > 70) adm withincr SOB/swelling x several weeks. Since adm Scr incr 1.3 o 1.7 in assoc with diuresis ( 3.9 Liter diuresis since adm). Has marked resp challenges d/t obesity and GONZALEZ and currently on Bipap. Poor historian. Diabetic neuropathy Morbid obesity Phantom limb pain R BKA Review of Systems Review of Systems All other systems are reviewed and are negative Constitutional: Reports as per HPI and Reports no additional constitutional complaints Eyes: Reports as per HPI and Reports no additional eye complaints Reports system reviewed and no additional complaints, except as documented Cardiovascular: Reports as per HPI and Reports no additional cardiovascular complaints Respiratory: Reports as per HPI and Reports no additional respiratory complaints Gastrointestinal: Reports as per HPI and Reports no additional gastrointestinal complaints Genitourinary: Reports no additional female genitourinary complaints Musculoskeletal: Reports no additional musculoskeletal complaints Skin/Breast: Reports system reviewed and no additional complaints, except as docu Psychiatric: Reports no additional psychiatric complaints Endocrine: Reports no additional endocrine complaints Hematologic/Lymphatic: Reports no additional hematologic/lymphatic complaints Allergic/Immunologic: Reports no additional allergic/immunologic complaints Reports system reviewed and no additional complaints, except as documented and Reports Abnormal speech present Reports system reviewed and no additional complaints, except as documented PMFSH Past Medical History Medical History Chronic pain Diabetic neuropathy Hypertension Morbid obesity Phantom limb pain Family History Family History Father No problems noted. Mother No problems noted. Surgical History Surgical History History of right lower limb amputation Hx of cholecystectomy Social History Social History Alcohol intake: unknown Smoking Status: Heavy tobacco smoker Tobacco Type: Cigarette Packs Per Day: 3 Cigarettes Per Day: 60.0 Years Smoked: 25 Smoked in Last 30 Days: No Use of substances other than those prescribed or required for medical reasons: Yes Substance Use Type: Opiates Substance Use Frequency: Chronic Longstanding Last Used Substance: Just Prior to Admission Currently Displaying Signs/Symptoms of Drug Intoxication Withdrawal: No Advance Directives: No Advance Directives Information Provided: Yes Do you have thoughts of harming others: None Do you have a plan to hurt others: No Plan service: No Meds Allergies Allergy/AdvReac Type Severity Reaction Status Date / Time penicillin V Allergy Unknown hives Verified 03/22/20 11:33 Home Medications Medication Instructions Recorded Confirmed Type acetaminophen 500 mg tablet 1,000 mg PO Q8-10H PRN 01/18/20 04/06/20 History aspirin 81 mg tablet,delayed 81 mg PO DAILY 01/18/20 04/06/20 History release calcium carbonate 500 mg calcium 500 mg PO DAILY 01/18/20 04/06/20 History (1,250 mg) tablet cholecalciferol (vitamin D3) 25 25 mcg PO DAILY 01/18/20 04/06/20 History mcg (1,000 unit) capsule clonidine HCl 0.1 mg tablet 0.1 mg PO BID 01/18/20 04/06/20 History cyclobenzaprine 5 mg tablet 5 mg PO TID PRN 01/18/20 04/06/20 History ferrous sulfate 325 mg (65 mg 325 mg PO DAILY 01/18/20 04/06/20 History iron) tablet fluticasone propionate 50 1 spray INTRANASAL BID 01/18/20 04/06/20 History mcg/actuation nasal spray,suspension insulin regular hum U-500 conc 175 unit SUBCUT BID ml 01/18/20 04/06/20 History melatonin 3 mg capsule 6 mg PO BEDTIME PRN 01/18/20 04/06/20 History metformin 500 mg tablet 500 mg PO DAILY 01/18/20 04/06/20 History omeprazole 20 mg capsule,delayed 20 mg PO BID 01/18/20 04/06/20 History release pravastatin 10 mg tablet 10 mg PO BEDTIME 01/18/20 04/06/20 History topiramate 100 mg tablet 100 mg PO BEDTIME 01/18/20 04/06/20 History torsemide 20 mg tablet 60 mg PO DAILY tab 01/18/20 04/06/20 History trazodone 50 mg tablet 50 mg PO BEDTIME PRN 01/18/20 04/06/20 History facial-body wipes #384 ea 02/20/20 03/22/20 History levothyroxine 37.5 mcg PO DAILY 04/06/20 04/06/20 History loperamide 2 PO Q4-5H 04/06/20 History Physical Exam Vital Signs: Last Vital Signs Temp 97.2 F 04/08/20 07:37 Pulse 88 04/08/20 07:37 Resp 14 04/08/20 11:17 BP 157/74 H 04/08/20 07:37 Pulse Ox 94 04/08/20 07:37 Body Mass Index 71.1 Const Other: Constitutional Awake and Alert, in pain Neck Supple, hard to tell if there is JVD Cardiovascular RRR, S1 S2, No S3 S4, 3+ pedal edema Respiratory Lungs diminish breath sounds Gastrointestinal Non tender, Non-distended Skin No rash, right BKA Neurological Alert & oriented x3 Psychological Appropriate affect General: cooperative, no acute distress and lethargic Nutritional Appearance: obese morbidly obese Orientation/consciousness: patient oriented x3 and lethargic HENMT Head: Yes normocephalic and Yes atraumatic Eyes General: appearance normal, both eyes and all related structures Neck Neck: Yes trachea midline and Yes other (Extremely thick neck and JVD cannot be evaluated) Chest Chest palpation & inspection: normal inspection of the chest Resp Effort & Inspection: normal respiratory effort and able to speak in complete sentences Auscultation: clear to auscultation bilaterally Cardio Other: Constitutional Awake and Alert, in pain Neck Supple, hard to tell if there is JVD Cardiovascular RRR, S1 S2, No S3 S4, 3+ pedal edema Respiratory Lungs diminish breath sounds Gastrointestinal Non tender, Non-distended Skin No rash, right BKA Neurological Alert & oriented x3 Psychological Appropriate affect Palpation: other (Cannot appreciate PMI) Rate: regular rate Rhythm: regular rhythm Heart sounds: S1 normal heart sound present and S2 normal heart sound present GI Inspection: Yes obesity Palpation (GI): Soft to palpation Auscultation: normal bowel sounds Skin General skin exam: no rashes or lesions noted Neuro General: patient oriented x3 and no focal motor deficits Cognition (Neuro): normal cognition Extrem Other: 3+ bilateral pitting edema up to the groin General: Yes normal to inspection, Yes amputation noted (Right below knee), No clubbing, No cyanosis, Yes edema (Significant lower extremity edema noted) and Yes venous stasis dermatitis Results Lab Results Result Diagrams: 04/07/20 04:35 04/08/20 08:50 Lab results: Chemistry 04/06/20 04/06/20 04/06/20 17:50 18:32 19:34 Sodium Cancelled Cancelled 138 Potassium Cancelled Cancelled 4.6 Carbon Dioxide Cancelled Cancelled 29 BUN Cancelled Cancelled 26 H Creatinine Cancelled Cancelled 1.32 Calcium Cancelled Cancelled 7.6 L 04/07/20 04/08/20 04:35 08:50 Sodium 138 139 Potassium 5.2 H 5.4 H Carbon Dioxide 25 29 BUN 28 H 33 H Creatinine 1.55 H 1.67 H Calcium 7.7 L 7.7 L Hematology 04/06/20 04/06/20 04/07/20 17:50 18:32 04:35 WBC Cancelled 4.2 L 5.4 Hgb Cancelled 11.1 L 11.7 L Plt Count Cancelled 105 L 122 L Urinalysis 04/06/20 18:26 Urine Color STRAW Urine Appearance CLEAR Urine pH 6.0 Ur Specific [place] 1.015 Urine Protein 2+ H Urine Glucose (UA) NEG Urine Ketones NEG Urine Blood 2+ H Urine Nitrite NEG Ur Leukocyte Esterase NEG Urine RBC 1-4 Urine WBC 0-2 Ur Squamous Epith Cells TRACE Assessment and Plan (1) New onset of congestive heart failure: Status: Acute (2) Dyspnea: Qualifiers: Dyspnea type: unspecified Qualified Code(s): R06.00 - Dyspnea, unspecified Status: Acute (3) Diabetes mellitus: Problem details: 15 minute spent on telephone Status: Acute (4) Morbid obesity: Status: Acute (5) Chronic pain: Status: Acute (6) JOSE (acute kidney injury): Status: Acute 49-year-old male super morbi obese BMI 73, DM, chronic right heart heart failure, HTN, chronic pain syndrome here with increasing SOB and totoal body fluid overload/likely right heart failure and JOSE 1. JOSE: most c/w diuresis and inabilty to mobilize 3rd space fluid to compensate for ongoing diuresis; other poss such as AGN, AIN and Acute Obs all seem unlikely 2. TBFOL: massive fluid overload d/t combinatin of GONZALEZ/pulm HTN and RHF are the likely main issues; need to r/o Nephrotic Syndrome 3. Rspp failure with hypercapnic failure d/t Obesity/GONZALEZ 4. Resp acidosis REC: cont diuresis; track UOP/renal func; check serum albumin and Up/cr; will follow with team
[2020-04-08 12:52] LABS: Glucose, Whole Blood 197 mg/dL (60-115)
--- NOTE | 2020-04-08 12:52 | P.PNCA_ITS ---
Subjective Subjective Date of Service: 04/08/20 Principal diagnosis: Respiratory failure Interval history: Patient obtained in this morning. Severely acidotic with s ignificant hypercarbia. On arousable at this time. Has diuresed somewhat with 5 mg of Lasix drip. No further history available at this time Review of Systems Review of Systems Yes Unobtainable due to mental status Reports system reviewed and no additional complaints, except as documented Physical Exam Vital Signs: Last Vital Signs Temp 97.2 F 04/08/20 07:37 Pulse 89 04/08/20 12:00 Resp 21 H 04/08/20 12:00 BP 160/74 H 04/08/20 12:00 Pulse Ox 96 04/08/20 12:00 Body Mass Index 71.1 Const General: patient obtunded and other (Currently on BiPAP) Nutritional Appearance: obese morbidly obese Orientation/consciousness: patient obtunded Neck Neck: Yes prominent supraclavicular fat pad and Yes other (Cannot evaluate for jugular venous distention) Chest Chest palpation & inspection: normal inspection of the chest Resp Effort & Inspection: labored and respiratory distress Cardio Heart sounds: S1 normal heart sound present and S2 normal heart sound present GI Inspection: Yes Abdominal panniculus present and Yes obesity Auscultation: normal bowel sounds Neuro General: patient obtunded Extrem General: Yes amputation noted and Yes edema (Significant edema of the left lower extremity) Results Labs and Meds Result diagrams: 04/07/20 04:35 04/08/20 08:50 Lab results: Laboratory Results - last 24 hr 04/07/20 04/07/20 04/08/20 16:41 21:15 07:31 ABG pH ABG pCO2 ABG pO2 ABG HCO3 ABG O2 Saturation ABG Base Excess Oxygen Given Sodium Potassium Chloride Carbon Dioxide Anion Gap BUN Creatinine Estim Creat Clear Calc Estimated GFR POC Glucose 250 H 166 H 203 H Random Glucose Calcium 04/08/20 04/08/20 08:50 Unknown ABG pH 7.16 L* ABG pCO2 89 H* ABG pO2 93 ABG HCO3 31 H ABG O2 Saturation 93.8 ABG Base Excess 0.1 Oxygen Given 40% Sodium 139 Potassium 5.4 H Chloride 105 Carbon Dioxide 29 Anion Gap 10 L BUN 33 H Creatinine 1.67 H Estim Creat Clear Calc 94.2 Estimated GFR 44 POC Glucose Random Glucose 220 H D Calcium 7.7 L Progress Note: A&P Assessment and plan (1) Hypercapnic respiratory failure: Status: Acute Assessment and Plan: Patient has significant respiratory acidosis hypercapnic respiratory failure currently on BiPAP therapy. This is most likely related to Pickwickian syndrome and morbid obesity. Clinically still fluid overloaded. ICU consult to be requested. Continue BiPAP therapy. Patient may require closer monitoring in intensive care unit setting. Continue IV diuresis, maximize Lasix to 10 mg an hour. Strict intake and output chart needs to be pursued. Echocardiogram was very limited given his body habitus. LV systolic function appeared preserved on some views. However right-sided chambers could not be evaluated on this study. Continue supportive care. Prognosis is guarded at this time. Fall Risk Details Current Medications: Current Medications Generic Name Dose Route Start Last Admin Trade Name Freq PRN Reason Stop Dose Admin Acetaminophen 650 mg 04/06/20 23:07 Acetaminophen 325 Mg Tablet PO Q6H PRN Pain, Mild (Pain Scale 1-3) Aspirin 81 mg 04/07/20 09:00 04/08/20 09:20 Aspirin Enteric Coated 81 Mg Tablet.Dr PO Not Given DAILY [facility] Calcium Carbonate 500 mg 04/07/20 09:00 04/08/20 09:20 Calcium Carbonate 500 Mg Tablet PO Not Given DAILY [facility] Clonidine HCl 0.1 mg 04/06/20 23:07 04/08/20 09:20 Clonidine Hcl 0.1 Mg Tablet PO Not Given BID [facility] Protocol Cyclobenzaprine HCl 5 mg 04/06/20 23:07 04/07/20 19:59 Cyclobenzaprine Hcl 5 Mg Tablet PO 5 mg TID PRN Administration Pain Dicyclomine HCl 20 mg 04/06/20 23:07 04/08/20 09:20 Dicyclomine Hcl 10 Mg Capsule PO Not Given QID [facility] Docusate Sodium 100 mg 04/06/20 23:07 Docusate Sodium 100 Mg Capsule PO DAILY PRN Constipation Heparin Sodium (Porcine) 5,000 unit 04/07/20 00:00 04/08/20 09:29 Heparin Sodium,Porcine 5,000 Unit/Ml Vial SUBCUT 5,000 unit Q8H REGGIE Administration Furosemide 500 mg/ IV 50 mls @ 0.5 mls/hr 04/07/20 16:15 04/07/20 19:03 Miscellaneous Supplies IVCONT 5 mg/hr .Q24H REGGIE 0.5 mls/hr Administration 5 MG/HR Insulin Human Lispro 0 unit 04/07/20 07:30 04/08/20 12:14 Insulin Lispro 100 Unit/Ml 3 Ml Vial SUBCUT Not Given QIDACHS [facility] Protocol Levothyroxine Sodium 37.5 mcg 04/07/20 06:30 04/08/20 05:36 Levothyroxine Sodium 75 Mcg Tablet PO 37.5 mcg DAILY@0630 [facility] Administration Melatonin 6 mg 04/06/20 23:07 04/07/20 22:08 Melatonin 3 Mg Tablet PO 6 mg BEDTIME PRN Administration Sleep Morphine Sulfate 15 mg 04/06/20 23:07 04/07/20 19:59 Morphine Sulfate Immed Release 15 Mg Tablet PO 15 mg Q6H PRN Administration pain Naloxone HCl 4 mg 04/06/20 23:07 Naloxone Hcl Nasal 4 Mg [place] NOSTRILALT Q2M PRN opioid overdose Omeprazole 20 mg 04/06/20 23:07 04/08/20 05:36 Omeprazole 20 Mg Capsule. PO 20 mg BID@0630,1630 [facility] Administration Ondansetron HCl 4 mg 04/06/20 23:07 Ondansetron Hcl 4 Mg/2 Ml Vial IVPUSH Q8H PRN Nausea and Vomiting Pharmacy Consult 1 each 04/06/20 20:04 Consult Rx Perform Med Rec MISCELLANE ONCE PRN Consult order Pravastatin Sodium 10 mg 04/06/20 23:07 04/07/20 21:19 Pravastatin Sodium 10 Mg Tablet PO 10 mg BEDTIME REGGIE Administration Sodium Chloride 3 ml 04/07/20 00:00 04/08/20 09:19 0.9 % Sodium Chloride Flush 3 Ml Syringe IVFLUSH 3 ml QSHIFT REGGIE Administration Topiramate 100 mg 04/06/20 23:07 04/07/20 21:19 Topiramate 100 Mg Tablet PO 100 mg BEDTIME REGGIE Administration Trazodone HCl 50 mg 04/06/20 23:07 04/07/20 22:08 Trazodone Hcl 50 Mg Tablet PO 50 mg BEDTIME PRN Administration Sleep Vitamin D 25 mcg 04/07/20 09:00 04/08/20 09:20 Cholecalciferol (Vitamin D3) 25 Mcg Tablet PO Not Given DAILY [facility] Time Spent With Patient Time: Total time spent is greater than 50% in coordination of care (as documented) at patient's floor/unit and/or counseling patient: Time with patient: 25 - 35 minutes
[2020-04-08 13:19] LABS: Pt Ventilation O2% 35%
[2020-04-08 13:20] LABS: Base Excess ABG 1.7; HCO3 ABG 31 mmol/l (22-26); Oxygen Saturation ABG 92.4 %; PO2 ABG 81 mmhg (83-108); pH ABG 7.22 (7.35-7.45)
[2020-04-08 13:21] LABS: Blood Gas Serial # 5396
[2020-04-08 13:23] LABS: ABG PCO2 79 mmhg (32-45)
[2020-04-08 13:56] LABS: Creatinine Urine 69.34 mg/dL
[2020-04-08 14:37] LABS: Total Protein Urine Random 336 mg/dL (<12)
[2020-04-08] MEDS: Furosemide 500 MG in Container,Empty 0 ML IVCONT (16:19)
[2020-04-08 16:23] LABS: Glucose, Whole Blood 162 mg/dL (60-115)
--- NOTE | 2020-04-08 19:30 | W.PM.CCHP ---
Procedures Central Line Placement A quick time-out was made for clarification and proper patient identification, patient was positioned, landmarks were identified, US used to locate a large compressible IJ. The right neck was widely prepped and draped in a full sterile fashion. Ultrasound was used to locate again the right IJ, the vein was cannulated on the 1st pass with an 18 gauge thin needle, dark nonpulsatile blood return was obtained. The wire was threaded, a small incision was made at its base and dilator inserted. A triple-lumen central venous catheter was advanced into the vein up to the hub without problems, wired was removed. Ports had good blood return and flushed x3. The catheter was secured with 3 sutures at 3 sites, a Biopatch and dry sterile dressing were applied. Post procedure chest x-ray showed the line to be in good position without pneumothorax. No bleeding or complications noted.: Consent for Procedure: Elective - informed consent obtained Time out performed: Yes Sterile Technique Used: Yes Patient placed on monitor/pulse ox: Yes MD prep: mask, gown and gloves Central line prep: Chlorhexidine scrub and sterile drapes applied Local anesthesia used: lidocaine 1% Amount of anesthesia used (ml): 10 Ultrasound used for placement: Yes Central line lumen inserted: single and triple Post procedure: sutured in place, good blood return, all ports aspirated, flushed, capped and sterile dressing applied Post procedure x-ray: tip of catheter in good position and no pneumothorax seen Patient tolerated procedure: well and no complications
[2020-04-08 21:02] LABS: Anion Gap 11 (12-20); Blood Urea Nitrogen 31 mg/dL (9-16); Calcium 7.9 mg/dL (8.4-10.2); Carbon Dioxide 33 mmol/L (22-29); Chloride 103 mmol/L (96-108); Creatinine Clr Calc Pharmacy 106.3; Estimated Glomerular Filt Rate 50; Glucose Random 167 mg/dL (60-115); Potassium 4.7 mmol/l (3.3-5.1); Sodium 142 mmol/L (135-145)
[2020-04-08] MEDS: HYDROmorphone HCl 0.5 MG/0.5 ML SYRINGE IVPUSH ×2 (21:17→22:00)
[2020-04-08 21:29] LABS: Pt Ventilation O2% 30%
[2020-04-08 21:38] LABS: HCO3 ABG 30 mmol/l (22-26); PO2 ABG 73 mmhg (83-108); pH ABG 7.26 (7.35-7.45)
[2020-04-08 21:39] LABS: Glucose, Whole Blood 158 mg/dL (60-115)
[2020-04-08 21:39] LABS: Oxygen Saturation ABG 91.6 %
[2020-04-08 21:41] LABS: Blood Gas Serial # 5396
[2020-04-08 21:42] LABS: ABG PCO2 69 mmhg (32-45)
[2020-04-09] VITALS (35 sets, daily range): BP systolic 110–156; BP diastolic 42–94; PULSE 82–99; RESP 12–26; TEMP 36.6–37.4; O2SAT 84–100; BMI 68.2
[2020-04-09] MEDS: 0.9 % Sodium Chloride Flush 3 ML SYRINGE IVFLUSH ×4 (00:08→23:23)
[2020-04-09] MEDS: Heparin Sodium,Porcine 5,000 UNIT/ML VIAL 5000 UNIT SUBCUT ×4 (00:09→23:27)
[2020-04-09] MEDS: Cyclobenzaprine HCl 5 MG TABLET PO ×2 (01:39→16:20)
--- NOTE | 2020-04-09 04:27 | PC.NURSE ---
Addendum entered by Avni Campbell RN 04/09/20 06:37: patient passed extremely large soft brown stool in bed Original Note: CARE ASSUMED 23:15...AWAKE..ALERT...VAGUE RESPONSES TO QUESTIONS AT TIMES...HURT...BIPAP 22/6 & FIO2 40%...RR 18-24...Ve 12-15 l/m awake..FREQUENTLY RESISTANT TO CARE...PULLS OFF BIPAP MASK...REQUESTS PAIN MEDICINE FOR CHRONIC BACK PAIN AND/OR PHANTOM LIMB PAIN...PREVIOUSLY RECEIVED DILAUDID IV X2 DOSES APPROX 9PM & 10PM PER JUN...NO FURTHER NARCOTICS TO BE GIVEN PER ICU PA OVERNIGHT...LASIX DRIP 10 MG/HR...DIURESING LARGE AMOUNT YELLOW URINE...NSR..NO ECTOPY...SAO2 96-98%...PATIENT WITH MARKED SLEEP APNEA ASLEEP....SAO2 LOW 60% THEN SPONTANEOUSLY RECOVERS TO 96%...ICU PA PRESENT AND AWARE...
[2020-04-09 05:38] LABS: Basophils Percent Auto 0.3 % (0-2); Eosinophils Absolute Auto 0.1 X10*3/uL (0.0-0.4); Eosinophils Percent Auto 1.4 % (0-4); Imm Gran Abs Auto 0.03 X10*3/uL (0.00-0.03); Imm Gran Pct Auto 0.9 % (0.0-0.4); Lymphocytes Absolute Auto 0.3 X10*3/uL (1.2-4.9); Lymphocytes Percent Auto 8.3 % (20-40); MANUAL DIFF FLAG SCAN; Mean Corpuscular HGB Conc 29.4 g/dl (31.0-36.0); Mean Corpuscular Hemoglobin 30.7 pg (27.0-33.0); Mean Corpuscular Volume 104.3 fL (80-98); Mean Platelet Volume 9.4 fL (9.4-12.4); Monocytes Absolute Auto 0.3 X10*3/uL (0.1-1.2); Monocytes Percent Auto 8.3 % (2-11); Neutrophils Absolute Auto 2.8 X10*3/uL (2.0-8.3); Neutrophils Percent Auto 80.8 % (45-73); Red Blood Count 3.26 X10*6/uL (4.60-5.80); Red Cell Distribution Width 14.4 % (11.0-16.0); SCAN SMEAR FLAG 1; White Blood Count 3.5 X10*3/uL (4.8-10.8)
[2020-04-09 05:40] LABS: Base Excess VBG 5.7 mmol/L; HCO3 VBG 34 mmol/L; Oxygen Saturation VBG 83.7 %; PCO2 VBG 74 mmhg; PO2 VBG 51 mmhg; Platelet Count 95 X10*3/uL (160-400); pH VBG 7.28 (7.32-7.43)
[2020-04-09 05:55] LABS: Anion Gap 11 (12-20); Blood Urea Nitrogen 30 mg/dL (9-16); Calcium 7.9 mg/dL (8.4-10.2); Carbon Dioxide 34 mmol/L (22-29); Chloride 103 mmol/L (96-108); Creatinine Clr Calc Pharmacy 112.5; Estimated Glomerular Filt Rate 55; Glucose Random 170 mg/dL (60-115); Sodium 144 mmol/L (135-145)
[2020-04-09] MEDS: Levothyroxine Sodium 75 MCG TABLET 37.5 MCG PO (06:24)
[2020-04-09] MEDS: Omeprazole 20 MG CAPSULE.DR PO ×2 (06:24→16:14)
[2020-04-09 07:19] LABS: Glucose, Whole Blood 164 mg/dL (60-115)
[2020-04-09 08:26] LABS: Glucose, Whole Blood 164 mg/dL (60-115)
[2020-04-09 08:30] LABS: SLIDE REVIEW VERIFIED
--- NOTE | 2020-04-09 09:57 | PM.PNCARD ---
Subjective Subjective Date of Service: 04/09/20 Principal diagnosis: Respiratory failure Interval history: He states that he is uncomfortable but otherwise no acute cardiac complaints at this time. On BiPAP. Review of Systems Review of Systems Yes Unobtainable due to mental condition and Unobtainable due to mental status Physical Exam Vital Signs: Last Vital Signs Temp 99.3 F 04/09/20 07:55 Pulse 91 04/09/20 09:00 Resp 19 04/09/20 09:00 BP 114/72 04/09/20 09:00 Pulse Ox 98 04/09/20 09:00 Body Mass Index 68.2 Const General: no acute distress HENMT Other: Unremarkable Neck Neck: Yes normal visual inspection Chest Chest palpation & inspection: normal inspection of the chest Resp Auscultation: no crackles, no wheezes and diminished lung sounds Cardio Jugular venous distension: no JVD Palpation: normal PMI Heart sounds: S1 normal heart sound present, S2 normal heart sound present, no gallops, no murmurs and no rubs GI Palpation (GI): Soft to palpation Back/Spine/Pelvis Other: unremarkable Skin General skin exam: no rashes or lesions noted Psych Mental Status: mental status grossly normal Results Labs and Meds Result diagrams: 04/09/20 05:17 04/09/20 05:17 Lab results: Laboratory Results - last 24 hr 04/08/20 04/08/20 04/08/20 12:12 13:05 13:05 WBC RBC Hgb Hct MCV MCH MCHC RDW Plt Count MPV Immature Gran % (Auto) Neut % (Auto) Lymph % (Auto) [place] % (Auto) Eos % (Auto) Baso % (Auto) Lymph # (Auto) [place] # (Auto) Eos # (Auto) Baso # (Auto) Abs Immat Gran (auto) Absolute Neuts (auto) Absolute Nucleated RBC Nucleated RBC % (auto) Smear Tech's Comments ABG pH ABG pCO2 ABG pO2 ABG HCO3 ABG O2 Saturation ABG Base Excess VBG pH VBG pCO2 VBG pO2 VBG HCO3 VBG O2 Saturation VBG Base Excess Oxygen Given Sodium Potassium Chloride Carbon Dioxide Anion Gap BUN Creatinine Estim Creat Clear Calc Estimated GFR POC Glucose 197 H Random Glucose Calcium U Random Total Protein 336 H Urine Creatinine 69.34 12/27/20 12/27/20 12/27/20 13:15 16:19 20:26 WBC RBC Hgb Hct MCV MCH MCHC RDW Plt Count MPV Immature Gran % (Auto) Neut % (Auto) Lymph % (Auto) [place] % (Auto) Eos % (Auto) Baso % (Auto) Lymph # (Auto) [place] # (Auto) Eos # (Auto) Baso # (Auto) Abs Immat Gran (auto) Absolute Neuts (auto) Absolute Nucleated RBC Nucleated RBC % (auto) Smear Tech's Comments ABG pH 7.22 L ABG pCO2 79 H* ABG pO2 81 L ABG HCO3 31 H ABG O2 Saturation 92.4 ABG Base Excess 1.7 VBG pH VBG pCO2 VBG pO2 VBG HCO3 VBG O2 Saturation VBG Base Excess Oxygen Given 35% Sodium 142 Potassium 4.7 Chloride 103 Carbon Dioxide 33 H Anion Gap 11 L BUN 31 H Creatinine 1.48 H Estim Creat Clear Calc 106.3 Estimated GFR 50 POC Glucose 162 H Random Glucose 167 H Calcium 7.9 L U Random Total Protein Urine Creatinine 04/08/20 04/08/20 04/09/20 21:20 21:36 05:17 WBC 3.5 L RBC 3.26 L Hgb 10.0 L Hct 34.0 L MCV 104.3 H MCH 30.7 MCHC 29.4 L RDW 14.4 Plt Count 95 L MPV 9.4 Immature Gran % (Auto) 0.9 H Neut % (Auto) 80.8 H Lymph % (Auto) 8.3 L [place] % (Auto) 8.3 Eos % (Auto) 1.4 Baso % (Auto) 0.3 Lymph # (Auto) 0.3 L [place] # (Auto) 0.3 Eos # (Auto) 0.1 Baso # (Auto) 0.0 Abs Immat Gran (auto) 0.03 Absolute Neuts (auto) 2.8 Absolute Nucleated RBC 0.000 Nucleated RBC % (auto) 0.0 Smear Tech's Comments VERIFIED ABG pH 7.26 L ABG pCO2 69 H* ABG pO2 73 L ABG HCO3 30 H ABG O2 Saturation 91.6 ABG Base Excess 2.0 VBG pH VBG pCO2 VBG pO2 VBG HCO3 VBG O2 Saturation VBG Base Excess Oxygen Given 30% Sodium Potassium Chloride Carbon Dioxide Anion Gap BUN Creatinine Estim Creat Clear Calc Estimated GFR POC Glucose 158 H Random Glucose Calcium U Random Total Protein Urine Creatinine 04/09/20 04/09/20 04/09/20 05:17 05:17 07:16 WBC RBC Hgb Hct MCV MCH MCHC RDW Plt Count MPV Immature Gran % (Auto) Neut % (Auto) Lymph % (Auto) [place] % (Auto) Eos % (Auto) Baso % (Auto) Lymph # (Auto) [place] # (Auto) Eos # (Auto) Baso # (Auto) Abs Immat Gran (auto) Absolute Neuts (auto) Absolute Nucleated RBC Nucleated RBC % (auto) Smear Tech's Comments ABG pH ABG pCO2 ABG pO2 ABG HCO3 ABG O2 Saturation ABG Base Excess VBG pH 7.28 L VBG pCO2 74 VBG pO2 51 VBG HCO3 34 VBG O2 Saturation 83.7 VBG Base Excess 5.7 Oxygen Given Sodium 144 Potassium 4.0 Chloride 103 Carbon Dioxide 34 H Anion Gap 11 L BUN 30 H Creatinine 1.36 Estim Creat Clear Calc 112.5 Estimated GFR 55 POC Glucose 164 H Random Glucose 170 H Calcium 7.9 L U Random Total Protein Urine Creatinine 04/09/20 07:16 WBC RBC Hgb Hct MCV MCH MCHC RDW Plt Count MPV Immature Gran % (Auto) Neut % (Auto) Lymph % (Auto) [place] % (Auto) Eos % (Auto) Baso % (Auto) Lymph # (Auto) [place] # (Auto) Eos # (Auto) Baso # (Auto) Abs Immat Gran (auto) Absolute Neuts (auto) Absolute Nucleated RBC Nucleated RBC % (auto) Smear Tech's Comments ABG pH ABG pCO2 ABG pO2 ABG HCO3 ABG O2 Saturation ABG Base Excess VBG pH VBG pCO2 VBG pO2 VBG HCO3 VBG O2 Saturation VBG Base Excess Oxygen Given Sodium Potassium Chloride Carbon Dioxide Anion Gap BUN Creatinine Estim Creat Clear Calc Estimated GFR POC Glucose 164 H Random Glucose Calcium U Random Total Protein Urine Creatinine Progress Note: A&P Assessment and plan (1) Acute on chronic right heart failure: Status: Acute (2) Acute respiratory failure: Status: Acute (3) Morbid obesity: Status: Acute Assessment and Plan: Still appears volume overloaded. Continue Lasix drip. Bipap. Suspected obesity hypoventilation syndrome leading to right heart failure. Otherwise supportive care by loan review manager team. Fall Risk Details Current Medications: Current Medications Generic Name Dose Route Start Last Admin Trade Name [place] PRN Reason Stop Dose Admin Acetaminophen 650 mg 04/06/20 23:07 Acetaminophen 325 Mg Tablet PO Q6H PRN Pain, Mild (Pain Scale 1-3) Aspirin 81 mg 04/07/20 09:00 04/08/20 09:20 Aspirin Enteric Coated 81 Mg Tablet.Dr PO Not Given DAILY [facility] Buprenorphine HCl 4 mg 04/09/20 09:00 Buprenorphine Hcl 2 Mg Tab.Subl SUBLINGUAL DAILY [facility] Calcium Carbonate 500 mg 04/07/20 09:00 04/08/20 09:20 Calcium Carbonate 500 Mg Tablet PO Not Given DAILY [facility] Clonidine HCl 0.1 mg 04/06/20 23:07 04/08/20 21:10 Clonidine Hcl 0.1 Mg Tablet PO Not Given BID [facility] Protocol Cyclobenzaprine HCl 5 mg 04/06/20 23:07 04/09/20 01:39 Cyclobenzaprine Hcl 5 Mg Tablet PO 5 mg TID PRN Administration Pain Dicyclomine HCl 20 mg 04/06/20 23:07 04/08/20 21:11 Dicyclomine Hcl 10 Mg Capsule PO Not Given QID [facility] Docusate Sodium 100 mg 04/06/20 23:07 Docusate Sodium 100 Mg Capsule PO DAILY PRN Constipation Heparin Sodium (Porcine) 5,000 unit 04/07/20 00:00 04/09/20 07:30 Heparin Sodium,Porcine 5,000 Unit/Ml Vial SUBCUT 5,000 unit Q8H [facility] Administration Furosemide 500 mg/ IV 50 mls @ 1 mls/hr 04/07/20 16:15 04/08/20 16:19 Miscellaneous Supplies IVCONT 10 mg/hr .Q24H [facility] 1 mls/hr Administration 10 MG/HR Insulin Human Lispro 0 unit 04/07/20 07:30 04/09/20 07:36 Insulin Lispro 100 Unit/Ml 3 Ml Vial SUBCUT Not Given QIDACHS [facility] Protocol Levothyroxine Sodium 37.5 mcg 04/07/20 06:30 04/09/20 06:24 Levothyroxine Sodium 75 Mcg Tablet PO 37.5 mcg DAILY@0630 [facility] Administration Melatonin 6 mg 04/06/20 23:07 04/07/20 22:08 Melatonin 3 Mg Tablet PO 6 mg BEDTIME PRN Administration Sleep Omeprazole 20 mg 04/06/20 23:07 04/09/20 06:24 Omeprazole 20 Mg Capsule. PO 20 mg BID@7668,2150 REGGIE Administration Ondansetron HCl 4 mg 04/06/20 23:07 Ondansetron Hcl 4 Mg/2 Ml Vial IVPUSH Q8H PRN Nausea and Vomiting Pharmacy Consult 1 each 04/06/20 20:04 Consult Rx Perform Med Rec MISCELLANE ONCE PRN Consult order Pravastatin Sodium 10 mg 04/06/20 23:07 04/08/20 21:11 Pravastatin Sodium 10 Mg Tablet PO Not Given BEDTIME REGGIE Pregabalin 50 mg 04/09/20 09:00 Pregabalin 50 Mg Capsule PO DAILY REGGIE Sodium Chloride 3 ml 04/07/20 00:00 04/09/20 07:25 0.9 % Sodium Chloride Flush 3 Ml Syringe IVFLUSH 3 ml QSHIFT REGGIE Administration Topiramate 100 mg 04/06/20 23:07 04/08/20 21:11 Topiramate 100 Mg Tablet PO Not Given BEDTIME REGGIE Trazodone HCl 50 mg 04/06/20 23:07 04/07/20 22:08 Trazodone Hcl 50 Mg Tablet PO 50 mg BEDTIME PRN Administration Sleep Vitamin D 25 mcg 04/07/20 09:00 04/08/20 09:20 Cholecalciferol (Vitamin D3) 25 Mcg Tablet PO Not Given DAILY [facility] Time Spent With Patient Time: Total time spent is greater than 50% in coordination of care (as documented) at patient's floor/unit and/or counseling patient: Time with patient: 15 - 24 minutes
[2020-04-09 11:04] LABS: PCO2 VBG 63 mmhg
[2020-04-09 11:05] LABS: HCO3 VBG 31 mmol/L; Oxygen Saturation VBG 82.8 %; PO2 VBG 49 mmhg
--- NOTE | 2020-04-09 11:07 | MHC.CM.PN ---
d/c plan remains home with resumption of services. May need VNA services. On BiPAP. IV lasix. minus 12 liters. Will follow for d/c needs.
--- NOTE | 2020-04-09 11:19 | MHC.CLN ---
F/U PO INTAKE 100% (04/08) PT NOW ON BIPAP INCREASES NUTRITION RISK WILL ADD GLUCERNA SHAKES DRINKING MAY BE EASIER FOR PT DIET RX: 1800DM 2GM NA -APPROPRIATE FOLLOWING
[2020-04-09 11:34] LABS: Glucose, Whole Blood 161 mg/dL (60-115)
--- NOTE | 2020-04-09 11:42 | PM.PNNEP ---
Subjective Subjective Date of Service: 04/09/20 Principal diagnosis: Respiratory failure Interval history: seen and examined somnolent Physical Exam Vital Signs: Vital Signs: Last Vital Signs Temp 99.3 F 04/09/20 07:55 Pulse 92 04/09/20 11:00 Resp 18 04/09/20 11:31 BP 151/64 H 04/09/20 11:00 Pulse Ox 98 04/09/20 11:00 Body Mass Index 68.2 Const: General: ill appearing HENMT: Head: Yes normocephalic and Yes atraumatic Neck: Neck: Yes supple Resp: Auscultation: diminished lung sounds Cardio: Heart sounds: S1 normal heart sound present and S2 normal heart sound present GI: Palpation (GI): Soft to palpation and nontender Extrem: General: Yes edema Objective Data Labs CBC & Chem 7: 04/09/20 05:17 04/09/20 05:17 Labs: Laboratory Results - last 24 hr 04/08/20 04/08/20 04/08/20 12:12 13:05 13:05 WBC RBC Hgb Hct MCV MCH MCHC RDW Plt Count MPV Immature Gran % (Auto) Neut % (Auto) Lymph % (Auto) [place] % (Auto) Eos % (Auto) Baso % (Auto) Lymph # (Auto) [place] # (Auto) Eos # (Auto) Baso # (Auto) Abs Immat Gran (auto) Absolute Neuts (auto) Absolute Nucleated RBC Nucleated RBC % (auto) Smear Tech's Comments ABG pH ABG pCO2 ABG pO2 ABG HCO3 ABG O2 Saturation ABG Base Excess VBG pH VBG pCO2 VBG pO2 VBG HCO3 VBG O2 Saturation VBG Base Excess Oxygen Given Sodium Potassium Chloride Carbon Dioxide Anion Gap BUN Creatinine Estim Creat Clear Calc Estimated GFR POC Glucose 197 H Random Glucose Calcium U Random Total Protein 336 H Urine Creatinine 69.34 04/08/20 04/08/20 04/08/20 13:15 16:19 20:26 WBC RBC Hgb Hct MCV MCH MCHC RDW Plt Count MPV Immature Gran % (Auto) Neut % (Auto) Lymph % (Auto) [place] % (Auto) Eos % (Auto) Baso % (Auto) Lymph # (Auto) [place] # (Auto) Eos # (Auto) Baso # (Auto) Abs Immat Gran (auto) Absolute Neuts (auto) Absolute Nucleated RBC Nucleated RBC % (auto) Smear Tech's Comments ABG pH 7.22 L ABG pCO2 79 H* ABG pO2 81 L ABG HCO3 31 H ABG O2 Saturation 92.4 ABG Base Excess 1.7 VBG pH VBG pCO2 VBG pO2 VBG HCO3 VBG O2 Saturation VBG Base Excess Oxygen Given 35% Sodium 142 Potassium 4.7 Chloride 103 Carbon Dioxide 33 H Anion Gap 11 L BUN 31 H Creatinine 1.48 H Estim Creat Clear Calc 106.3 Estimated GFR 50 POC Glucose 162 H Random Glucose 167 H Calcium 7.9 L U Random Total Protein Urine Creatinine 04/08/20 04/08/20 04/09/20 21:20 21:36 05:17 WBC 3.5 L RBC 3.26 L Hgb 10.0 L Hct 34.0 L MCV 104.3 H MCH 30.7 MCHC 29.4 L RDW 14.4 Plt Count 95 L MPV 9.4 Immature Gran % (Auto) 0.9 H Neut % (Auto) 80.8 H Lymph % (Auto) 8.3 L [place] % (Auto) 8.3 Eos % (Auto) 1.4 Baso % (Auto) 0.3 Lymph # (Auto) 0.3 L [place] # (Auto) 0.3 Eos # (Auto) 0.1 Baso # (Auto) 0.0 Abs Immat Gran (auto) 0.03 Absolute Neuts (auto) 2.8 Absolute Nucleated RBC 0.000 Nucleated RBC % (auto) 0.0 Smear Tech's Comments VERIFIED ABG pH 7.26 L ABG pCO2 69 H* ABG pO2 73 L ABG HCO3 30 H ABG O2 Saturation 91.6 ABG Base Excess 2.0 VBG pH VBG pCO2 VBG pO2 VBG HCO3 VBG O2 Saturation VBG Base Excess Oxygen Given 30% Sodium Potassium Chloride Carbon Dioxide Anion Gap BUN Creatinine Estim Creat Clear Calc Estimated GFR POC Glucose 158 H Random Glucose Calcium U Random Total Protein Urine Creatinine 04/09/20 04/09/20 04/09/20 05:17 05:17 07:16 WBC RBC Hgb Hct MCV MCH MCHC RDW Plt Count MPV Immature Gran % (Auto) Neut % (Auto) Lymph % (Auto) [place] % (Auto) Eos % (Auto) Baso % (Auto) Lymph # (Auto) [place] # (Auto) Eos # (Auto) Baso # (Auto) Abs Immat Gran (auto) Absolute Neuts (auto) Absolute Nucleated RBC Nucleated RBC % (auto) Smear Tech's Comments ABG pH ABG pCO2 ABG pO2 ABG HCO3 ABG O2 Saturation ABG Base Excess VBG pH 7.28 L VBG pCO2 74 VBG pO2 51 VBG HCO3 34 VBG O2 Saturation 83.7 VBG Base Excess 5.7 Oxygen Given Sodium 144 Potassium 4.0 Chloride 103 Carbon Dioxide 34 H Anion Gap 11 L BUN 30 H Creatinine 1.36 Estim Creat Clear Calc 112.5 Estimated GFR 55 POC Glucose 164 H Random Glucose 170 H Calcium 7.9 L U Random Total Protein Urine Creatinine 04/09/20 04/09/20 04/09/20 07:16 10:48 11:30 WBC RBC Hgb Hct MCV MCH MCHC RDW Plt Count MPV Immature Gran % (Auto) Neut % (Auto) Lymph % (Auto) [place] % (Auto) Eos % (Auto) Baso % (Auto) Lymph # (Auto) [place] # (Auto) Eos # (Auto) Baso # (Auto) Abs Immat Gran (auto) Absolute Neuts (auto) Absolute Nucleated RBC Nucleated RBC % (auto) Smear Tech's Comments ABG pH ABG pCO2 ABG pO2 ABG HCO3 ABG O2 Saturation ABG Base Excess VBG pH 7.30 L VBG pCO2 63 VBG pO2 49 VBG HCO3 31 VBG O2 Saturation 82.8 VBG Base Excess 3.0 Oxygen Given Sodium Potassium Chloride Carbon Dioxide Anion Gap BUN Creatinine Estim Creat Clear Calc Estimated GFR POC Glucose 164 H 161 H Random Glucose Calcium U Random Total Protein Urine Creatinine Assessment & Plan Assessment and plan (1) JOSE (acute kidney injury): Status: Acute (2) CHF (congestive heart failure): Status: Acute Assessment and Plan: Scr better JOSE due to renal hypoperfusion in the setting of decompensated heart failure right sided heart failure volume status above dry weight REC keep negative fluid balance follow kidney function and electrolytes Time Spent With Patient Time: Total time spent is greater than 50% in coordination of care (as documented) at patient's floor/unit and/or counseling patient:
[2020-04-09] MEDS: Insulin Lispro 100 UNIT/ML 3 ML VIAL SUBCUT ×3 (12:00→22:45)
[2020-04-09] MEDS: Dicyclomine HCl 10 MG CAPSULE 20 MG PO ×3 (12:01→22:44)
[2020-04-09] MEDS: Pregabalin 50 MG CAPSULE PO (12:02)
[2020-04-09] MEDS: Cholecalciferol (Vitamin D3) 25 MCG TABLET PO (12:03)
[2020-04-09] MEDS: Buprenorphine HCL 2 MG TAB.SUBL 4 MG SUBLINGUAL (12:04)
[2020-04-09] MEDS: cloNIDine HCL 0.1 MG TABLET PO ×2 (12:05→22:44)
[2020-04-09] MEDS: Aspirin Enteric Coated 81 MG TABLET.DR PO (12:05)
--- NOTE | 2020-04-09 12:16 | PM.CCPN ---
Subjective Subjective Date of Service: 04/09/20 Interval History: 49-year-old morbidly obese completely sedentary male insulin-dependent type 2 diabetic with hyperlipidemia she and hypertension and a right [id number] amputation for peripheral vascular disease probable diabetic neuropathy and of course chronic pain for which he takes a combination of bupropion or vein as well as opiates and at home he is listed as having had long-acting morphine Admitted with 1 month progressive shortness of breath noted by a echo which was poor quality to fat preserved systolic function of the ventricle with hypertrophy and diastolic dysfunction and in retrospect probable poorly compensated treated obesity hypoventilation and obstructive sleep apnea with secondary cor pulmonale marked fluid overload and has been on a continuous Lasix drip for several days with actual improvement in his acute on chronic stage III renal failure now down to BUN 30 and creatinine of 1.36 with a 11 L of volume loss and preserved electrolytes but acute on chronic hypercarbic and hypoxic respiratory failure but improving in terms of both mental status and pCO2 dropping from 90-60 on BiPAP Physical Exam Vital Signs: Vital Signs: Last Vital Signs Temp 99.3 F 04/09/20 07:55 Pulse 90 04/09/20 12:05 Resp 14 04/09/20 12:00 BP 149/70 H 04/09/20 12:05 Pulse Ox 96 04/09/20 12:00 Body Mass Index 68.2 Const: Other: On exam he has awakened he is oriented nonfocal neurologically Cardiac exam with normal S1 normal S2 no gallops or murmurs and the recorded CVP after 11 L of diuresis still hovering at 15 with normal X and Y descent Lungs clear bilaterally with no adventitious sounds Abdomen is massively obese good bowel sounds nontender Marked bilateral stasis dermatitis and right BKA operation no skin interruption no rashes Objective Data Labs CBC & Chem 7: 04/09/20 05:17 04/09/20 05:17 Labs: Laboratory Results - last 24 hr 04/08/20 04/08/20 04/08/20 12:12 13:05 13:05 WBC RBC Hgb Hct MCV MCH MCHC RDW Plt Count MPV Immature Gran % (Auto) Neut % (Auto) Lymph % (Auto) [place] % (Auto) Eos % (Auto) Baso % (Auto) Lymph # (Auto) [place] # (Auto) Eos # (Auto) Baso # (Auto) Abs Immat Gran (auto) Absolute Neuts (auto) Absolute Nucleated RBC Nucleated RBC % (auto) Smear Tech's Comments ABG pH ABG pCO2 ABG pO2 ABG HCO3 ABG O2 Saturation ABG Base Excess VBG pH VBG pCO2 VBG pO2 VBG HCO3 VBG O2 Saturation VBG Base Excess Oxygen Given Sodium Potassium Chloride Carbon Dioxide Anion Gap BUN Creatinine Estim Creat Clear Calc Estimated GFR POC Glucose 197 H Random Glucose Calcium U Random Total Protein 336 H Urine Creatinine 69.34 04/08/20 04/08/20 04/08/20 13:15 16:19 20:26 WBC RBC Hgb Hct MCV MCH MCHC RDW Plt Count MPV Immature Gran % (Auto) Neut % (Auto) Lymph % (Auto) [place] % (Auto) Eos % (Auto) Baso % (Auto) Lymph # (Auto) [place] # (Auto) Eos # (Auto) Baso # (Auto) Abs Immat Gran (auto) Absolute Neuts (auto) Absolute Nucleated RBC Nucleated RBC % (auto) Smear Tech's Comments ABG pH 7.22 L ABG pCO2 79 H* ABG pO2 81 L ABG HCO3 31 H ABG O2 Saturation 92.4 ABG Base Excess 1.7 VBG pH VBG pCO2 VBG pO2 VBG HCO3 VBG O2 Saturation VBG Base Excess Oxygen Given 35% Sodium 142 Potassium 4.7 Chloride 103 Carbon Dioxide 33 H Anion Gap 11 L BUN 31 H Creatinine 1.48 H Estim Creat Clear Calc 106.3 Estimated GFR 50 POC Glucose 162 H Random Glucose 167 H Calcium 7.9 L U Random Total Protein Urine Creatinine 04/08/20 04/08/20 04/09/20 21:20 21:36 05:17 WBC 3.5 L RBC 3.26 L Hgb 10.0 L Hct 34.0 L MCV 104.3 H MCH 30.7 MCHC 29.4 L RDW 14.4 Plt Count 95 L MPV 9.4 Immature Gran % (Auto) 0.9 H Neut % (Auto) 80.8 H Lymph % (Auto) 8.3 L [place] % (Auto) 8.3 Eos % (Auto) 1.4 Baso % (Auto) 0.3 Lymph # (Auto) 0.3 L [place] # (Auto) 0.3 Eos # (Auto) 0.1 Baso # (Auto) 0.0 Abs Immat Gran (auto) 0.03 Absolute Neuts (auto) 2.8 Absolute Nucleated RBC 0.000 Nucleated RBC % (auto) 0.0 Smear Tech's Comments VERIFIED ABG pH 7.26 L ABG pCO2 69 H* ABG pO2 73 L ABG HCO3 30 H ABG O2 Saturation 91.6 ABG Base Excess 2.0 VBG pH VBG pCO2 VBG pO2 VBG HCO3 VBG O2 Saturation VBG Base Excess Oxygen Given 30% Sodium Potassium Chloride Carbon Dioxide Anion Gap BUN Creatinine Estim Creat Clear Calc Estimated GFR POC Glucose 158 H Random Glucose Calcium U Random Total Protein Urine Creatinine 04/09/20 04/09/20 04/09/20 05:17 05:17 07:16 WBC RBC Hgb Hct MCV MCH MCHC RDW Plt Count MPV Immature Gran % (Auto) Neut % (Auto) Lymph % (Auto) [place] % (Auto) Eos % (Auto) Baso % (Auto) Lymph # (Auto) [place] # (Auto) Eos # (Auto) Baso # (Auto) Abs Immat Gran (auto) Absolute Neuts (auto) Absolute Nucleated RBC Nucleated RBC % (auto) Smear Tech's Comments ABG pH ABG pCO2 ABG pO2 ABG HCO3 ABG O2 Saturation ABG Base Excess VBG pH 7.28 L VBG pCO2 74 VBG pO2 51 VBG HCO3 34 VBG O2 Saturation 83.7 VBG Base Excess 5.7 Oxygen Given Sodium 144 Potassium 4.0 Chloride 103 Carbon Dioxide 34 H Anion Gap 11 L BUN 30 H Creatinine 1.36 Estim Creat Clear Calc 112.5 Estimated GFR 55 POC Glucose 164 H Random Glucose 170 H Calcium 7.9 L U Random Total Protein Urine Creatinine 04/09/20 04/09/20 04/09/20 07:16 10:48 11:30 WBC RBC Hgb Hct MCV MCH MCHC RDW Plt Count MPV Immature Gran % (Auto) Neut % (Auto) Lymph % (Auto) [place] % (Auto) Eos % (Auto) Baso % (Auto) Lymph # (Auto) [place] # (Auto) Eos # (Auto) Baso # (Auto) Abs Immat Gran (auto) Absolute Neuts (auto) Absolute Nucleated RBC Nucleated RBC % (auto) Smear Tech's Comments ABG pH ABG pCO2 ABG pO2 ABG HCO3 ABG O2 Saturation ABG Base Excess VBG pH 7.30 L VBG pCO2 63 VBG pO2 49 VBG HCO3 31 VBG O2 Saturation 82.8 VBG Base Excess 3.0 Oxygen Given Sodium Potassium Chloride Carbon Dioxide Anion Gap BUN Creatinine Estim Creat Clear Calc Estimated GFR POC Glucose 164 H 161 H Random Glucose Calcium U Random Total Protein Urine Creatinine Progress Note: A&P Assessment and plan (1) Opioid use disorder: Status: Acute (2) CHF (congestive heart failure): Status: Acute (3) JOSE (acute kidney injury): Status: Acute (4) Acute on chronic right heart failure: Status: Acute (5) Acute respiratory failure: Status: Acute (6) Hypercapnic respiratory failure: Status: Acute (7) JOSE (acute kidney injury): Status: Acute (8) Chronic pain: Status: Acute (9) New onset of congestive heart failure: Status: Acute (10) Dyspnea: Status: Acute (11) Congestive heart failure: Status: Acute (12) Phantom limb pain: Problem details: I DEMONSTRATED HOW TO USE BELBUCA BY APPLYING A SAMPLE TO HIS RIGHT CHEEK Status: Acute (13) Diabetic neuropathy: Status: Acute (14) Morbid obesity: Status: Acute (15) Diabetes mellitus: Problem details: 15 minute spent on telephone Status: Acute Assessment and Plan: To we will continue BiPAP but now that he is more awake will begin at least a clear liquid diet and given the distance in time between his p.r.n. doses of hydromorphone and morphine we can reinitiate Buprenex or feeding at 4 mg with the help of and an opioid use disorder specialist and probably initiate pregabalin for diabetic neuropathy and phantom limb pain and monitoring his CVP once it is below 12 will stop the Lasix drip and will initiate more chronic maintenance medication Time Spent With Patient Time: Total time spent is greater than 50% in coordination of care (as documented) at patient's floor/unit and/or counseling patient: Total time spent with greater than 50% in coordination of care (as documented) at patient's floor/unit and/or counseling patient:: 35
--- NOTE | 2020-04-09 13:45 | MHC.CM.PN ---
Referral placed to [facility] to follow. Pt active with them.
--- NOTE | 2020-04-09 14:55 | PC.NURSE ---
Addendum entered by Main Rubio RN 04/09/20 18:15: Placed back on BiPAP at 1800. MODE AVAPS Max P 30/ Min P 15, EPAP 4 FiO2 35%, Rate 10, Vt 900 Addendum entered by Main Rubio RN 04/09/20 18:12: Pt has had 4 large bowel movements today, incontinent once. CVP has ranged 15-18, triple lumen central line dressing changed today. Original Note: Pt oriented to person and place, states year 2012, spontaneous arousal, pupils 3m sluggish, right pupil irregular shape. On BIPAP this morning 02/10 FiO2 40% TV 600-1000 Vte 15-25L/min, RR18-22. VBG this AM pH 7.28, pCO2 74, pO2 51. HCO3- 34. Continued on BIPAP, pt frequently pulling mask off, requires reminder of reason for interventions. Inspiratory rhonchi noted bilat upper lobes and RLL, dim lower lobes. 11am VBG 7.30/63/49/31. MD [place] wanted AM meds held until this resulted. Started back on sublingual 4mg Subutex. On highfow at 55L/min, does desat to 83% when asleep 2/2 brief periods of apnea. Plan is to place back on BIPAP. AM dose insulin held 2/2 requirement to stay on BiPAP. Started on 2200kcal clear liquid diet and tolerated well. POC glucose 161, 2units lispro given. Pt NSR 90's, BP trending slightly down currently 121/54. On lasix drip at 10mg/hr putting out ~350ml/hr in crowder cath, light yellow. Weight down to 203.6kg from 218kg on 04/06. BUN/creatinine improving. Family member updated with patients approval.
--- NOTE | 2020-04-09 15:22 | HO.ADDICT_ITS ---
History of Present Illness Date of Service: 04/09/2020 Chief Complaint: CHF exacerbation Reason for Consult: addiction consult patient taking buprenorphine preparation and morphine IR Requesting physician: Sharlene Bryson HPI Narrative: He presents to hospital with shortness of breath He is hypoxic and somewhat somnolent and admitted to ICU where he is getting hiflow oxygen at 55% He has no fever or chills or cough and is COVID negative He mentions being short of breath for a month He sees Pain Management and is having medication adjusted for better effect I reviewed RESISTANCE [facility] and he had been on Hydromorphone 2 mg 6 a day last prescribed on 11/15/2019 as well as Morphine sulfate ER last prescribed on 02/20 15 mg tid Since then his medication has been changed to Belbuca started 75 mg daily on 02/20 and then increased to Belbuca 150 mg two a day and then 300 mg daily on 03/22 as well as MS IR 15 mg qid on 03/22 Notes and patient report indicate that Belbuca wasnt doing a thing for me He however denies increasing dose of morphine or getting medication from street He has been on Morphine 15 mg ER bid with breakthrough Hydromorphone 2 mg up to 6 a day for 3 years He has been in long term and has diabetes and has right leg surgery and back pain,and thus chronic pain for years He is not suicidal He is depressed over chronic illness but shows no suicidal thoughts or significant depression He doesnt have features of opioid use disorder such as wish to quit taking medications,pursuit of medication from alternate sources or significant psychopathology however he does have physical dependence and desire to increase dose of meds Past Psychiatric History: depression possible adjustment disorder Medical Evaluation Reviewed: Yes DM Morbid obesity Right leg surgery,foot amputation Sleep apnea Personal & Social History: Denies smoking at this time Denies alcohol Denies drug use Review of Systems Review of Systems physical exam Heent Perrla Oropharynx clear Cor RRR Abd soft nontender Ext enlarged left leg,foot amputation right ,in wheelchair Neuro neuropathy Reports system reviewed and no additional complaints, except as documented Diagnostics Vital Signs (24Hr): Vital Signs - 24 hr 04/08/20 15:45 04/08/20 16:54 04/08/20 18:00 Temperature Pulse Rate 87 89 85 Respiratory Rate 16 14 18 Blood Pressure 171/77 H 132/52 L 116/45 L Pulse Oximetry 99 96 96 04/08/20 19:00 04/08/20 20:00 04/08/20 20:05 Temperature Pulse Rate 89 91 Respiratory Rate 16 19 16 Blood Pressure 140/106 H 136/111 H Pulse Oximetry 97 99 04/08/20 21:00 04/08/20 22:00 04/08/20 22:57 Temperature Pulse Rate 91 95 93 Respiratory Rate 23 H 24 H 28 H Blood Pressure 147/79 H 166/79 H 156/74 H Pulse Oximetry 97 95 6 L 04/09/20 00:00 04/09/20 00:15 04/09/20 01:00 Temperature 98.0 F Pulse Rate 92 90 Respiratory Rate 24 H 23 H 24 H Blood Pressure 156/94 H 150/90 H Pulse Oximetry 97 04/09/20 02:00 04/09/20 03:00 04/09/20 03:58 Temperature 97.9 F Pulse Rate 90 90 88 Respiratory Rate 18 20 18 Blood Pressure 141/45 H 133/61 120/42 L Pulse Oximetry 98 98 96 04/09/20 04:10 04/09/20 04:25 04/09/20 05:00 Temperature Pulse Rate 90 84 Respiratory Rate 16 18 Blood Pressure 142/66 H 134/58 L Pulse Oximetry 04/09/20 06:00 04/09/20 07:00 04/09/20 07:55 Temperature 99.3 F Pulse Rate 90 92 91 Respiratory Rate 18 14 26 H Blood Pressure 151/64 H 148/56 H 133/64 Pulse Oximetry 98 95 04/09/20 08:00 04/09/20 08:47 04/09/20 09:00 Temperature Pulse Rate 91 91 Respiratory Rate 21 H 19 Blood Pressure 133/64 114/72 Pulse Oximetry 95 98 04/09/20 10:00 04/09/20 11:00 04/09/20 11:31 Temperature Pulse Rate 90 92 Respiratory Rate 12 14 18 Blood Pressure 129/66 151/64 H Pulse Oximetry 100 98 04/09/20 12:00 04/09/20 12:05 04/09/20 13:00 Temperature 98.6 F Pulse Rate 91 90 92 Respiratory Rate 14 16 Blood Pressure 149/70 H 149/70 H 126/52 L Pulse Oximetry 96 96 04/09/20 14:00 04/09/20 15:00 Temperature Pulse Rate 93 92 Respiratory Rate 18 16 Blood Pressure 110/48 L 121/54 L Pulse Oximetry 90 L 93 Body Mass Index 68.2 Labs Results: 04/10/20 04:46 04/10/20 04:46 Labs: Laboratory Results - last 48 hr 04/07/20 04/07/20 04/08/20 16:41 21:15 07:31 WBC RBC Hgb Hct MCV MCH MCHC RDW Plt Count MPV Immature Gran % (Auto) Neut % (Auto) Lymph % (Auto) [place] % (Auto) Eos % (Auto) Baso % (Auto) Lymph # (Auto) [place] # (Auto) Eos # (Auto) Baso # (Auto) Abs Immat Gran (auto) Absolute Neuts (auto) Absolute Nucleated RBC Nucleated RBC % (auto) Smear Tech's Comments ABG pH ABG pCO2 ABG pO2 ABG HCO3 ABG O2 Saturation ABG Base Excess VBG pH VBG pCO2 VBG pO2 VBG HCO3 VBG O2 Saturation VBG Base Excess Oxygen Given Sodium Potassium Chloride Carbon Dioxide Anion Gap BUN Creatinine Estim Creat Clear Calc Estimated GFR POC Glucose 250 H 166 H 203 H Random Glucose Calcium U Random Total Protein Urine Creatinine 04/08/20 04/08/20 04/08/20 08:50 12:12 13:05 WBC RBC Hgb Hct MCV MCH MCHC RDW Plt Count MPV Immature Gran % (Auto) Neut % (Auto) Lymph % (Auto) [place] % (Auto) Eos % (Auto) Baso % (Auto) Lymph # (Auto) [place] # (Auto) Eos # (Auto) Baso # (Auto) Abs Immat Gran (auto) Absolute Neuts (auto) Absolute Nucleated RBC Nucleated RBC % (auto) Smear Tech's Comments ABG pH ABG pCO2 ABG pO2 ABG HCO3 ABG O2 Saturation ABG Base Excess VBG pH VBG pCO2 VBG pO2 VBG HCO3 VBG O2 Saturation VBG Base Excess Oxygen Given Sodium 139 Potassium 5.4 H Chloride 105 Carbon Dioxide 29 Anion Gap 10 L BUN 33 H Creatinine 1.67 H Estim Creat Clear Calc 94.2 Estimated GFR 44 POC Glucose 197 H Random Glucose 220 H D Calcium 7.7 L U Random Total Protein Urine Creatinine 69.34 04/08/20 04/08/20 04/08/20 13:05 13:15 16:19 WBC RBC Hgb Hct MCV MCH MCHC RDW Plt Count MPV Immature Gran % (Auto) Neut % (Auto) Lymph % (Auto) [place] % (Auto) Eos % (Auto) Baso % (Auto) Lymph # (Auto) [place] # (Auto) Eos # (Auto) Baso # (Auto) Abs Immat Gran (auto) Absolute Neuts (auto) Absolute Nucleated RBC Nucleated RBC % (auto) Smear Tech's Comments ABG pH 7.22 L ABG pCO2 79 H* ABG pO2 81 L ABG HCO3 31 H ABG O2 Saturation 92.4 ABG Base Excess 1.7 VBG pH VBG pCO2 VBG pO2 VBG HCO3 VBG O2 Saturation VBG Base Excess Oxygen Given 35% Sodium Potassium Chloride Carbon Dioxide Anion Gap BUN Creatinine Estim Creat Clear Calc Estimated GFR POC Glucose 162 H Random Glucose Calcium U Random Total Protein 336 H Urine Creatinine 04/08/20 04/08/20 04/08/20 20:26 21:20 21:36 WBC RBC Hgb Hct MCV MCH MCHC RDW Plt Count MPV Immature Gran % (Auto) Neut % (Auto) Lymph % (Auto) [place] % (Auto) Eos % (Auto) Baso % (Auto) Lymph # (Auto) [place] # (Auto) Eos # (Auto) Baso # (Auto) Abs Immat Gran (auto) Absolute Neuts (auto) Absolute Nucleated RBC Nucleated RBC % (auto) Smear Tech's Comments ABG pH 7.26 L ABG pCO2 69 H* ABG pO2 73 L ABG HCO3 30 H ABG O2 Saturation 91.6 ABG Base Excess 2.0 VBG pH VBG pCO2 VBG pO2 VBG HCO3 VBG O2 Saturation VBG Base Excess Oxygen Given 30% Sodium 142 Potassium 4.7 Chloride 103 Carbon Dioxide 33 H Anion Gap 11 L BUN 31 H Creatinine 1.48 H Estim Creat Clear Calc 106.3 Estimated GFR 50 POC Glucose 158 H Random Glucose 167 H Calcium 7.9 L U Random Total Protein Urine Creatinine 04/08/20 04/09/20 04/09/20 Unknown 05:17 05:17 WBC 3.5 L RBC 3.26 L Hgb 10.0 L Hct 34.0 L MCV 104.3 H MCH 30.7 MCHC 29.4 L RDW 14.4 Plt Count 95 L MPV 9.4 Immature Gran % (Auto) 0.9 H Neut % (Auto) 80.8 H Lymph % (Auto) 8.3 L [place] % (Auto) 8.3 Eos % (Auto) 1.4 Baso % (Auto) 0.3 Lymph # (Auto) 0.3 L [place] # (Auto) 0.3 Eos # (Auto) 0.1 Baso # (Auto) 0.0 Abs Immat Gran (auto) 0.03 Absolute Neuts (auto) 2.8 Absolute Nucleated RBC 0.000 Nucleated RBC % (auto) 0.0 Smear Tech's Comments VERIFIED ABG pH 7.16 L* ABG pCO2 89 H* ABG pO2 93 ABG HCO3 31 H ABG O2 Saturation 93.8 ABG Base Excess 0.1 VBG pH VBG pCO2 VBG pO2 VBG HCO3 VBG O2 Saturation VBG Base Excess Oxygen Given 40% Sodium 144 Potassium 4.0 Chloride 103 Carbon Dioxide 34 H Anion Gap 11 L BUN 30 H Creatinine 1.36 Estim Creat Clear Calc 112.5 Estimated GFR 55 POC Glucose Random Glucose 170 H Calcium 7.9 L U Random Total Protein Urine Creatinine 04/09/20 04/09/20 04/09/20 05:17 07:16 07:16 WBC RBC Hgb Hct MCV MCH MCHC RDW Plt Count MPV Immature Gran % (Auto) Neut % (Auto) Lymph % (Auto) [place] % (Auto) Eos % (Auto) Baso % (Auto) Lymph # (Auto) [place] # (Auto) Eos # (Auto) Baso # (Auto) Abs Immat Gran (auto) Absolute Neuts (auto) Absolute Nucleated RBC Nucleated RBC % (auto) Smear Tech's Comments ABG pH ABG pCO2 ABG pO2 ABG HCO3 ABG O2 Saturation ABG Base Excess VBG pH 7.28 L VBG pCO2 74 VBG pO2 51 VBG HCO3 34 VBG O2 Saturation 83.7 VBG Base Excess 5.7 Oxygen Given Sodium Potassium Chloride Carbon Dioxide Anion Gap BUN Creatinine Estim Creat Clear Calc Estimated GFR POC Glucose 164 H 164 H Random Glucose Calcium U Random Total Protein Urine Creatinine 04/09/20 04/09/20 10:48 11:30 WBC RBC Hgb Hct MCV MCH MCHC RDW Plt Count MPV Immature Gran % (Auto) Neut % (Auto) Lymph % (Auto) [place] % (Auto) Eos % (Auto) Baso % (Auto) Lymph # (Auto) [place] # (Auto) Eos # (Auto) Baso # (Auto) Abs Immat Gran (auto) Absolute Neuts (auto) Absolute Nucleated RBC Nucleated RBC % (auto) Smear Tech's Comments ABG pH ABG pCO2 ABG pO2 ABG HCO3 ABG O2 Saturation ABG Base Excess VBG pH 7.30 L VBG pCO2 63 VBG pO2 49 VBG HCO3 31 VBG O2 Saturation 82.8 VBG Base Excess 3.0 Oxygen Given Sodium Potassium Chloride Carbon Dioxide Anion Gap BUN Creatinine Estim Creat Clear Calc Estimated GFR POC Glucose 161 H Random Glucose Calcium U Random Total Protein Urine Creatinine Imaging Radiology Impressions: ITS Impressions Chest X-Ray 04/06/20 17:17 IMPRESSION: Cardiomegaly. Findings suggestive of pulmonary venous congestion and interstitial edema without definite changes to suggest overt pulmonary edema. Chest X-Ray 04/08/20 00:00 IMPRESSION: Right IJ catheter, tip in the expected region of the mid/distal SVC. Rotated positioning limits evaluation. Recommend repeat radiograph with better positioning. Mild vascular congestion and perhaps mild interstitial edema. Medications Medications Current Medications Generic Name Dose Route Start Last Admin Trade Name Freq PRN Reason Stop Dose Admin Acetaminophen 650 mg 04/06/20 23:07 Acetaminophen 325 Mg Tablet PO Q6H PRN Pain, Mild (Pain Scale 1-3) Aspirin 81 mg 04/07/20 09:00 04/09/20 12:05 Aspirin Enteric Coated 81 Mg Tablet.Dr PO 81 mg DAILY REGGIE Administration Buprenorphine HCl 4 mg 04/09/20 09:00 04/09/20 12:04 Buprenorphine Hcl 2 Mg Tab.Subl SUBLINGUAL 4 mg DAILY REGGIE Administration Calcium Carbonate 500 mg 04/07/20 09:00 04/09/20 12:04 Calcium Carbonate 500 Mg Tablet PO 500 mg DAILY REGGIE Administration Clonidine HCl 0.1 mg 04/06/20 23:07 04/09/20 12:05 Clonidine Hcl 0.1 Mg Tablet PO 0.1 mg BID REGGIE Administration Protocol Cyclobenzaprine HCl 5 mg 04/06/20 23:07 04/09/20 01:39 Cyclobenzaprine Hcl 5 Mg Tablet PO 5 mg TID PRN Administration Pain Dicyclomine HCl 20 mg 04/06/20 23:07 04/09/20 13:51 Dicyclomine Hcl 10 Mg Capsule PO Not Given QID REGGIE Docusate Sodium 100 mg 04/06/20 23:07 Docusate Sodium 100 Mg Capsule PO DAILY PRN Constipation Heparin Sodium (Porcine) 5,000 unit 04/07/20 00:00 04/09/20 07:30 Heparin Sodium,Porcine 5,000 Unit/Ml Vial SUBCUT 5,000 unit Q8H REGGIE Administration Furosemide 500 mg/ IV 50 mls @ 1 mls/hr 04/07/20 16:15 04/08/20 16:19 Miscellaneous Supplies IVCONT 10 mg/hr .Q24H REGGIE 1 mls/hr Administration 10 MG/HR Insulin Human Lispro 0 unit 04/07/20 07:30 04/09/20 12:00 Insulin Lispro 100 Unit/Ml 3 Ml Vial SUBCUT 2 unit QIDACHS REGGIE Administration Protocol Levothyroxine Sodium 37.5 mcg 04/07/20 06:30 04/09/20 06:24 Levothyroxine Sodium 75 Mcg Tablet PO 37.5 mcg DAILY@0630 REGGIE Administration Melatonin 6 mg 04/06/20 23:07 04/07/20 22:08 Melatonin 3 Mg Tablet PO 6 mg BEDTIME PRN Administration Sleep Omeprazole 20 mg 04/06/20 23:07 04/09/20 06:24 Omeprazole 20 Mg Capsule. PO 20 mg BID@0630,1630 [facility] Administration Ondansetron HCl 4 mg 04/06/20 23:07 Ondansetron Hcl 4 Mg/2 Ml Vial IVPUSH Q8H PRN Nausea and Vomiting Pharmacy Consult 1 each 04/06/20 20:04 Consult Rx Perform Med Rec MISCELLANE ONCE PRN Consult order Pravastatin Sodium 10 mg 04/06/20 23:07 04/08/20 21:11 Pravastatin Sodium 10 Mg Tablet PO Not Given BEDTIME REGGIE Pregabalin 50 mg 04/09/20 09:00 04/09/20 12:02 Pregabalin 50 Mg Capsule PO 50 mg DAILY REGGIE Administration Sodium Chloride 3 ml 04/07/20 00:00 04/09/20 07:25 0.9 % Sodium Chloride Flush 3 Ml Syringe IVFLUSH 3 ml QSHIFT REGGIE Administration Topiramate 100 mg 04/06/20 23:07 04/08/20 21:11 Topiramate 100 Mg Tablet PO Not Given BEDTIME REGGIE Trazodone HCl 50 mg 04/06/20 23:07 04/07/20 22:08 Trazodone Hcl 50 Mg Tablet PO 50 mg BEDTIME PRN Administration Sleep Vitamin D 25 mcg 04/07/20 09:00 04/09/20 12:03 Cholecalciferol (Vitamin D3) 25 Mcg Tablet PO 25 mcg DAILY REGGIE Administration Allergies Allergies Allergy/AdvReac Type Severity Reaction Status Date / Time penicillin V Allergy Unknown hives Verified 03/22/20 11:33 Assessment & Plan Assessment & Plan (1) Opioid use disorder: Status: Acute Code(s): F11.99 - Opioid use, unspecified with unspecified opioid-induced disorder Recommendations: He has had chronic pain He is being seen by pain management and medications are being changed He has respiratory failure started with symptoms one months ago of shortness of breath He probably has contributions from obstructive sleep apnea,possible some CHF and medication effect from opioid medications He has been stable on prior regimen of MS ER and hydromorphone in past He doesnt feel buprenorphine compound along with morphine is working well for him and hasnt been wanting to ?not taking Belbuca He is not interested in counseling or Suboxone program as doesnt wish to get off narcotics Suggest Can hold Belbuca (halflife of elimination is 27 hours and not certain of patients last dose ) but patient has been taking IR morphine regularly Can give Morphine sulfate 15 mg IR prn need pain tid about 12 hr after if less somnolent Can give comfort medication such as Imodium prn diarrhea Watch for somnolence F/U pain management outpatient. (2) CHF (congestive heart failure): Status: Acute Code(s): I50.9 - Heart failure, unspecified (3) JOSE (acute kidney injury): Status: Acute Code(s): N17.9 - Acute kidney failure, unspecified (4) Acute on chronic right heart failure: Status: Acute Code(s): I50.813 - Acute on chronic right heart failure (5) Hypercapnic respiratory failure: Status: Acute Code(s): J96.92 - Respiratory failure, unspecified with hypercapnia (6) JOSE (acute kidney injury): Status: Acute Code(s): N17.9 - Acute kidney failure, unspecified Greater than 50% of the session was spent on counseling and/or coordination of care PMFSH Past Medical History Medical History Chronic pain Diabetic neuropathy Hypertension Morbid obesity Opioid use disorder Phantom limb pain Family History Family History Father No problems noted. Mother No problems noted. Family history: reviewed and not pertinent Surgical History Surgical History History of right lower limb amputation Hx of cholecystectomy Social History Social History Alcohol intake: unknown Smoking Status: Heavy tobacco smoker Tobacco Type: Cigarette Packs Per Day: 3 Cigarettes Per Day: 60.0 Years Smoked: 25 Smoked in Last 30 Days: No Use of substances other than those prescribed or required for medical reasons: Yes Substance Use Type: Opiates Substance Use Frequency: Chronic Longstanding Last Used Substance: Just Prior to Admission Currently Displaying Signs/Symptoms of Drug Intoxication Withdrawal: No Advance Directives: No Advance Directives Information Provided: Yes Do you have thoughts of harming others: None Do you have a plan to hurt others: No Plan service: No
[2020-04-09 16:05] LABS: Glucose, Whole Blood 173 mg/dL (60-115)
[2020-04-09] MEDS: Furosemide 500 MG in Container,Empty 0 ML IVCONT (17:06)
[2020-04-09 22:35] LABS: Glucose, Whole Blood 154 mg/dL (60-115)
[2020-04-09] MEDS: Topiramate 100 MG TABLET PO (22:44)
[2020-04-09] MEDS: Pravastatin Sodium 10 MG TABLET PO (22:45)
[2020-04-09] MEDS: Morphine Sulfate ER 15 MG TABLET.ER PO (23:27)
[2020-04-10] VITALS (35 sets, daily range): BP systolic 119–191; BP diastolic 41–98; PULSE 76–93; RESP 11–24; TEMP 36.4–36.9; O2SAT 86–100; BMI 66.0
[2020-04-10 00:21] LABS: Base Excess VBG 7.8 mmol/L; HCO3 VBG 35 mmol/L; PCO2 VBG 68 mmhg; PO2 VBG 47 mmhg; pH VBG 7.33 (7.32-7.43)
[2020-04-10 00:22] LABS: Oxygen Saturation VBG 78.3 %
[2020-04-10] MEDS: Cyclobenzaprine HCl 5 MG TABLET PO ×2 (04:32→23:44)
[2020-04-10 05:21] LABS: Basophils Percent Auto 0.3 % (0-2); Eosinophils Absolute Auto 0.1 X10*3/uL (0.0-0.4); Eosinophils Percent Auto 2.1 % (0-4); Hematocrit 35.5 % (42-52); Hemoglobin 10.5 g/dl (14.0-18.0); Imm Gran Abs Auto 0.03 X10*3/uL (0.00-0.03); Imm Gran Pct Auto 0.9 % (0.0-0.4); Lymphocytes Absolute Auto 0.5 X10*3/uL (1.2-4.9); Mean Corpuscular HGB Conc 29.6 g/dl (31.0-36.0); Mean Corpuscular Hemoglobin 30.7 pg (27.0-33.0); Mean Corpuscular Volume 103.8 fL (80-98); Mean Platelet Volume 9.4 fL (9.4-12.4); Monocytes Absolute Auto 0.3 X10*3/uL (0.1-1.2); Monocytes Percent Auto 8.5 % (2-11); Neutrophils Absolute Auto 2.4 X10*3/uL (2.0-8.3); Neutrophils Percent Auto 72.2 % (45-73); Platelet Count 112 X10*3/uL (160-400); Red Blood Count 3.42 X10*6/uL (4.60-5.80); Red Cell Distribution Width 14.3 % (11.0-16.0); SCAN SMEAR FLAG 1; White Blood Count 3.3 X10*3/uL (4.8-10.8)
[2020-04-10 05:23] LABS: MANUAL DIFF FLAG SCAN
[2020-04-10] MEDS: Levothyroxine Sodium 75 MCG TABLET 37.5 MCG PO (05:30)
[2020-04-10 05:33] LABS: Base Excess VBG 12.2 mmol/L; HCO3 VBG 40 mmol/L; Oxygen Saturation VBG 74.3 %; PCO2 VBG 70 mmhg; PO2 VBG 38 mmhg; pH VBG 7.38 (7.32-7.43)
[2020-04-10] MEDS: Omeprazole 20 MG CAPSULE.DR PO ×2 (05:34→16:47)
[2020-04-10 05:42] LABS: Anion Gap 13 (12-20); Blood Urea Nitrogen 22 mg/dL (9-16); Calcium 8.3 mg/dL (8.4-10.2); Carbon Dioxide 39 mmol/L (22-29); Chloride 98 mmol/L (96-108); Creatinine Clr Calc Pharmacy 124.8; Estimated Glomerular Filt Rate > 60; Glucose Random 158 mg/dL (60-115); Magnesium 1.8 mg/dL (1.6-2.6); Phosphorus 3.3 mg/dL (2.7-4.5); Potassium 3.8 mmol/l (3.3-5.1); Sodium 146 mmol/L (135-145)
[2020-04-10 05:47] LABS: B Type Natriuretic Peptide 82 pg/mL (<100)
[2020-04-10 05:56] LABS: SLIDE REVIEW VERIFIED
--- NOTE | 2020-04-10 06:27 | PC.NURSE ---
CARE ASSUMED 23;15...AWAKE...ORIENTED X3 BUT VAGUE RESPONSES AT TIMES...INTERMITTANTLY RESTLESS AND RESISTANT TO CARE...AVAP/BIPAP IN PLACE AT HS...FREQUENTLY PULLS OFF MASK AND/OR DISLODGED WHEN POSITIONS SELF IN BED...SAO2 96-98% WITH AVAP/BIPAP/35% FIO2...Ve 14-18 L/M....Lasix drip 10 mg/hr...diuresing large amount urine overnight...cvp 18...NSR..NO ECTOPY...SCHEDULED OXYCONTIN GIVEN AT HS...MEDICATED OVERNIGHT WITH PRN FLEXERIL FOR C/O BACK PAIN...4-430 AM PATIENT REFUSED FURTHER USE OF BIPAP... I CAN'T TAKE IT ANYMORE...PLACED HI-ARON CANNULA 40%/50 LITERS BY RT....TAKING CLEAR LIQUIEDS W/O DIFFICULTY...LASIX DRIP D/C'D THIS AM BY EMR IMPLEMENTATION SPECIALIST
[2020-04-10 07:16] LABS: Glucose, Whole Blood 164 mg/dL (60-115)
[2020-04-10] MEDS: Heparin Sodium,Porcine 5,000 UNIT/ML VIAL 5000 UNIT SUBCUT ×3 (07:39→22:54)
[2020-04-10] MEDS: Insulin Lispro 100 UNIT/ML 3 ML VIAL SUBCUT ×4 (07:40→21:38)
[2020-04-10] MEDS: Morphine Sulfate ER 15 MG TABLET.ER PO ×3 (07:42→22:53)
[2020-04-10] MEDS: cloNIDine HCL 0.1 MG TABLET PO ×2 (09:08→21:38)
[2020-04-10] MEDS: Pregabalin 50 MG CAPSULE PO (09:08)
[2020-04-10] MEDS: Cholecalciferol (Vitamin D3) 25 MCG TABLET PO (09:08)
[2020-04-10] MEDS: Aspirin Enteric Coated 81 MG TABLET.DR PO (09:08)
[2020-04-10] MEDS: Dicyclomine HCl 10 MG CAPSULE 20 MG PO ×4 (09:09→21:40)
[2020-04-10] MEDS: 0.9 % Sodium Chloride Flush 3 ML SYRINGE IVFLUSH ×3 (09:09→22:54)
--- NOTE | 2020-04-10 09:36 | P.PNCA_ITS ---
Subjective Subjective Date of Service: 04/10/20 Principal diagnosis: Respiratory failure Interval history: He states that he is feeling better. Not as short of breath as before. Review of Systems Review of Systems Yes all other systems are reviewed and are negative Constitutional: Reports as per HPI, Reports lethargy and Reports weakness Cardiovascular: Denies as per HPI, Denies no additional cardiovascular complaints, Denies cool extremities, Denies painful fingertips, Denies chest pain, Denies chest pain at rest, Denies chest pain with activity, Denies Epiga stric Pain, Denies diaphoresis, Reports pedal edema, Denies irregular heart rhythm, Reports leg edema, Denies lightheadedness and Reports dyspnea Respiratory: Reports as per HPI and Reports dyspnea Reports system reviewed and no additional complaints, except as documented and Reports weakness Physical Exam Vital Signs: Last Vital Signs Temp 98.1 F 04/10/20 08:00 Pulse 83 04/10/20 09:08 Resp 97 H 04/10/20 08:56 BP 165/68 H 04/10/20 09:08 Pulse Ox 97 04/10/20 08:56 Body Mass Index 66.0 Const General: no acute distress [facility] Other: Unremarkable Neck Neck: Yes normal visual inspection Chest Chest palpation & inspection: normal inspection of the chest Resp Auscultation: no crackles, no wheezes and diminished lung sounds Cardio Jugular venous distension: no JVD Palpation: normal PMI Heart sounds: S1 normal heart sound present, S2 normal heart sound present, no gallops, no murmurs and no rubs GI Palpation (GI): Soft to palpation Back/Spine/Pelvis Other: unremarkable Skin General skin exam: no rashes or lesions noted Psych Mental Status: mental status grossly normal Results Labs and Meds Result diagrams: 04/10/20 04:46 04/10/20 04:46 Lab results: Laboratory Results - last 24 hr 04/09/20 04/09/20 04/09/20 10:48 11:30 16:01 WBC RBC Hgb Hct MCV MCH MCHC RDW Plt Count MPV Immature Gran % (Auto) Neut % (Auto) Lymph % (Auto) [place] % (Auto) Eos % (Auto) Baso % (Auto) Lymph # (Auto) [place] # (Auto) Eos # (Auto) Baso # (Auto) Abs Immat Gran (auto) Absolute Neuts (auto) Absolute Nucleated RBC Nucleated RBC % (auto) Smear Tech's Comments VBG pH 7.30 L VBG pCO2 63 VBG pO2 49 VBG HCO3 31 VBG O2 Saturation 82.8 VBG Base Excess 3.0 Sodium Potassium Chloride Carbon Dioxide Anion Gap BUN Creatinine Estim Creat Clear Calc Estimated GFR POC Glucose 161 H 173 H Random Glucose Calcium Phosphorus Magnesium B-Natriuretic Peptide 04/09/20 04/10/20 04/10/20 22:32 00:11 04:46 WBC 3.3 L RBC 3.42 L Hgb 10.5 L Hct 35.5 L MCV 103.8 H MCH 30.7 MCHC 29.6 L RDW 14.3 Plt Count 112 L MPV 9.4 Immature Gran % (Auto) 0.9 H Neut % (Auto) 72.2 Lymph % (Auto) 16.0 L [place] % (Auto) 8.5 Eos % (Auto) 2.1 Baso % (Auto) 0.3 Lymph # (Auto) 0.5 L [place] # (Auto) 0.3 Eos # (Auto) 0.1 Baso # (Auto) 0.0 Abs Immat Gran (auto) 0.03 Absolute Neuts (auto) 2.4 Absolute Nucleated RBC 0.000 Nucleated RBC % (auto) 0.0 Smear Tech's Comments VERIFIED VBG pH 7.33 VBG pCO2 68 VBG pO2 47 VBG HCO3 35 VBG O2 Saturation 78.3 VBG Base Excess 7.8 Sodium Potassium Chloride Carbon Dioxide Anion Gap BUN Creatinine Estim Creat Clear Calc Estimated GFR POC Glucose 154 H Random Glucose Calcium Phosphorus Magnesium B-Natriuretic Peptide 04/10/20 04/10/20 04/10/20 04:46 04:46 05:01 WBC RBC Hgb Hct MCV MCH MCHC RDW Plt Count MPV Immature Gran % (Auto) Neut % (Auto) Lymph % (Auto) [place] % (Auto) Eos % (Auto) Baso % (Auto) Lymph # (Auto) [place] # (Auto) Eos # (Auto) Baso # (Auto) Abs Immat Gran (auto) Absolute Neuts (auto) Absolute Nucleated RBC Nucleated RBC % (auto) Smear Tech's Comments VBG pH 7.38 VBG pCO2 70 VBG pO2 38 VBG HCO3 40 VBG O2 Saturation 74.3 VBG Base Excess 12.2 Sodium 146 H Potassium 3.8 Chloride 98 Carbon Dioxide 39 H Anion Gap 13 BUN 22 H Creatinine 1.20 Estim Creat Clear Calc 124.8 Estimated GFR > 60 POC Glucose Random Glucose 158 H Calcium 8.3 L Phosphorus 3.3 Magnesium 1.8 B-Natriuretic Peptide 82 04/10/20 07:12 WBC RBC Hgb Hct MCV MCH MCHC RDW Plt Count MPV Immature Gran % (Auto) Neut % (Auto) Lymph % (Auto) [place] % (Auto) Eos % (Auto) Baso % (Auto) Lymph # (Auto) [place] # (Auto) Eos # (Auto) Baso # (Auto) Abs Immat Gran (auto) Absolute Neuts (auto) Absolute Nucleated RBC Nucleated RBC % (auto) Smear Tech's Comments VBG pH VBG pCO2 VBG pO2 VBG HCO3 VBG O2 Saturation VBG Base Excess Sodium Potassium Chloride Carbon Dioxide Anion Gap BUN Creatinine Estim Creat Clear Calc Estimated GFR POC Glucose 164 H Random Glucose Calcium Phosphorus Magnesium B-Natriuretic Peptide Progress Note: A&P Assessment and plan (1) Acute on chronic right heart failure: Status: Acute (2) Acute respiratory failure: Status: Acute (3) Morbid obesity: Status: Acute Assessment and Plan: Most likely, this is all obesity related hypoventilation syndrome and right heart failure. He is off the Lasix drip. He has diuresed a lot. Will need to decide on maintenance dosing. Otherwise, enforced using CPAP regularly at home. Fall Risk Details Current Medications: Current Medications Generic Name Dose Route Start Last Admin Trade Name Freq PRN Reason Stop Dose Admin Acetaminophen 650 mg 04/06/20 23:07 Acetaminophen 325 Mg Tablet PO Q6H PRN Pain, Mild (Pain Scale 1-3) Aspirin 81 mg 04/07/20 09:00 04/10/20 09:08 Aspirin Enteric Coated 81 Mg Tablet.Dr PO 81 mg DAILY REGGIE Administration Calcium Carbonate 500 mg 04/07/20 09:00 04/10/20 09:08 Calcium Carbonate 500 Mg Tablet PO 500 mg DAILY REGGIE Administration Clonidine HCl 0.1 mg 04/06/20 23:07 04/10/20 09:08 Clonidine Hcl 0.1 Mg Tablet PO 0.1 mg BID REGGIE Administration Protocol Cyclobenzaprine HCl 5 mg 04/06/20 23:07 04/10/20 04:32 Cyclobenzaprine Hcl 5 Mg Tablet PO 5 mg TID PRN Administration Pain Dicyclomine HCl 20 mg 04/06/20 23:07 04/10/20 09:09 Dicyclomine Hcl 10 Mg Capsule PO 20 mg QID REGGIE Administration Docusate Sodium 100 mg 04/06/20 23:07 Docusate Sodium 100 Mg Capsule PO DAILY PRN Constipation Heparin Sodium (Porcine) 5,000 unit 04/07/20 00:00 04/10/20 07:39 Heparin Sodium,Porcine 5,000 Unit/Ml Vial SUBCUT 5,000 unit Q8H REGGIE Administration Insulin Human Lispro 0 unit 04/07/20 07:30 04/10/20 07:40 Insulin Lispro 100 Unit/Ml 3 Ml Vial SUBCUT 2 unit QIDACHS REGGIE Administration Protocol Levothyroxine Sodium 37.5 mcg 04/07/20 06:30 04/10/20 05:30 Levothyroxine Sodium 75 Mcg Tablet PO 37.5 mcg DAILY@0630 REGGIE Administration Melatonin 6 mg 04/06/20 23:07 04/07/20 22:08 Melatonin 3 Mg Tablet PO 6 mg BEDTIME PRN Administration Sleep Morphine Sulfate 15 mg 04/09/20 23:30 04/10/20 07:42 Morphine Sulfate Er 15 Mg Tablet.Er PO 15 mg Q8H REGGIE Administration Omeprazole 20 mg 04/06/20 23:07 04/10/20 05:34 Omeprazole 20 Mg Capsule.Dr PO 20 mg BID@0630,1630 REGGIE Administration Ondansetron HCl 4 mg 04/06/20 23:07 Ondansetron Hcl 4 Mg/2 Ml Vial IVPUSH Q8H PRN Nausea and Vomiting Pharmacy Consult 1 each 04/06/20 20:04 Consult Rx Perform Med Rec MISCELLANE ONCE PRN Consult order Pravastatin Sodium 10 mg 04/06/20 23:07 04/09/20 22:45 Pravastatin Sodium 10 Mg Tablet PO 10 mg BEDTIME REGGIE Administration Pregabalin 50 mg 04/09/20 09:00 04/10/20 09:08 Pregabalin 50 Mg Capsule PO 50 mg DAILY REGGIE Administration Sodium Chloride 3 ml 04/07/20 00:00 04/10/20 09:09 0.9 % Sodium Chloride Flush 3 Ml Syringe IVFLUSH 3 ml QSHIFT REGGIE Administration Topiramate 100 mg 04/06/20 23:07 04/09/20 22:44 Topiramate 100 Mg Tablet PO 100 mg BEDTIME REGGIE Administration Trazodone HCl 50 mg 04/06/20 23:07 04/07/20 22:08 Trazodone Hcl 50 Mg Tablet PO 50 mg BEDTIME PRN Administration Sleep Vitamin D 25 mcg 04/07/20 09:00 04/10/20 09:08 Cholecalciferol (Vitamin D3) 25 Mcg Tablet PO 25 mcg DAILY REGGIE Administration Time Spent With Patient Time: Total time spent is greater than 50% in coordination of care (as documented) at patient's floor/unit and/or counseling patient: Time with patient: 15 - 24 minutes
--- NOTE | 2020-04-10 10:52 | MHC.CM.PN ---
Per MD rounds, pt is improving and may possibly transfer to floor tomorrow. HF at 50%. Met with pt. States he feels somewhat better. Much happier with HF via nasal instead of mask. Pt tells me he lives alone. His girlriend, Sydney Campbell does not live with him. She is his HCP ([phone]). Pt is wheelchair bound and has a commode. States he transfers via pivot with aide of PHP PRO[employer]. Pt tells me he has a CPAP machine at home and it doesn't work. He admits to not using it, as it doesn't help him. Pt verifies that he has [employer] services through [employer], 40 hours a week, day and evenings until 10pm. Transportation when needed is provided by [facility]. Pt aware that he will need a PT evaluation and probably respiratory evaluation prior to discharge to assess his needs for rehab. Pt is insistent that he can go directly home with resumption of his services. Pt agreeable to referrals for rehab if needed, but does not want to go to rehab. Pt has been at [facility] in the past and refuses to go there again. Referrals placed. CM to follow for d/c needs
[2020-04-10 11:16] LABS: Glucose, Whole Blood 179 mg/dL (60-115)
--- NOTE | 2020-04-10 13:30 | PM.CCPN ---
Subjective Subjective Date of Service: 04/10/20 Interval History: 49-year-old male the extreme morbid obesity with insulin-dependent type 2 diabetes a right BKA amps and amputee for peripheral vascular disease untreated sleep apnea and obesity/hypoventilation presents with acute on chronic hypercarbic and hypoxic respiratory failure and that because of his opiate of abuse disorder where he relatively overdosed became lethargic and since he has been on BiPAP and and the a Lasix drip be diuresed nearly 15 L of fluid over 3 days this all due to cor pulmonale and a large amount of 3rd space fluid his but his acute on chronic stage III renal failure has been resolving ever since and I believe it is the relief of internal tamponade from the diuresis say he does well obviously which drinking at least right ventricular volume and here with the benefit of a central line he has had CVP is or mean right atrial pressures that were exceeding 20 initially now currently at 14-15 Physical Exam Vital Signs: Vital Signs: Last Vital Signs Temp 98.5 F 04/10/20 12:00 Pulse 82 04/10/20 13:00 Resp 18 04/10/20 13:00 BP 191/94 H 04/10/20 13:00 Pulse Ox 96 04/10/20 13:00 Body Mass Index 66.0 Const: Other: Is awake alert and oriented Neurologically nonfocal Cardiac exam with elevated CVP persistently at 14-15 but adequate bilateral carotid upstrokes sinus rhythm at a rate of 80 and becoming increasingly hypertensive and I believe this is now in indication of improving stroke work reserve Lungs no adventitious sounds Abdomen obese but nontender no organomegaly Objective Data Labs CBC & Chem 7: 04/10/20 04:46 04/10/20 04:46 Labs: Laboratory Results - last 24 hr 04/09/20 04/09/20 04/10/20 16:01 22:32 00:11 WBC RBC Hgb Hct MCV MCH MCHC RDW Plt Count MPV Immature Gran % (Auto) Neut % (Auto) Lymph % (Auto) [place] % (Auto) Eos % (Auto) Baso % (Auto) Lymph # (Auto) [place] # (Auto) Eos # (Auto) Baso # (Auto) Abs Immat Gran (auto) Absolute Neuts (auto) Absolute Nucleated RBC Nucleated RBC % (auto) Smear Tech's Comments VBG pH 7.33 VBG pCO2 68 VBG pO2 47 VBG HCO3 35 VBG O2 Saturation 78.3 VBG Base Excess 7.8 Sodium Potassium Chloride Carbon Dioxide Anion Gap BUN Creatinine Estim Creat Clear Calc Estimated GFR POC Glucose 173 H 154 H Random Glucose Calcium Phosphorus Magnesium B-Natriuretic Peptide 04/10/20 04/10/20 04/10/20 04:46 04:46 04:46 WBC 3.3 L RBC 3.42 L Hgb 10.5 L Hct 35.5 L MCV 103.8 H MCH 30.7 MCHC 29.6 L RDW 14.3 Plt Count 112 L MPV 9.4 Immature Gran % (Auto) 0.9 H Neut % (Auto) 72.2 Lymph % (Auto) 16.0 L [place] % (Auto) 8.5 Eos % (Auto) 2.1 Baso % (Auto) 0.3 Lymph # (Auto) 0.5 L [place] # (Auto) 0.3 Eos # (Auto) 0.1 Baso # (Auto) 0.0 Abs Immat Gran (auto) 0.03 Absolute Neuts (auto) 2.4 Absolute Nucleated RBC 0.000 Nucleated RBC % (auto) 0.0 Smear Tech's Comments VERIFIED VBG pH VBG pCO2 VBG pO2 VBG HCO3 VBG O2 Saturation VBG Base Excess Sodium 146 H Potassium 3.8 Chloride 98 Carbon Dioxide 39 H Anion Gap 13 BUN 22 H Creatinine 1.20 Estim Creat Clear Calc 124.8 Estimated GFR > 60 POC Glucose Random Glucose 158 H Calcium 8.3 L Phosphorus 3.3 Magnesium 1.8 B-Natriuretic Peptide 82 04/10/20 04/10/20 04/10/20 05:01 07:12 11:07 WBC RBC Hgb Hct MCV MCH MCHC RDW Plt Count MPV Immature Gran % (Auto) Neut % (Auto) Lymph % (Auto) [place] % (Auto) Eos % (Auto) Baso % (Auto) Lymph # (Auto) [place] # (Auto) Eos # (Auto) Baso # (Auto) Abs Immat Gran (auto) Absolute Neuts (auto) Absolute Nucleated RBC Nucleated RBC % (auto) Smear Tech's Comments VBG pH 7.38 VBG pCO2 70 VBG pO2 38 VBG HCO3 40 VBG O2 Saturation 74.3 VBG Base Excess 12.2 Sodium Potassium Chloride Carbon Dioxide Anion Gap BUN Creatinine Estim Creat Clear Calc Estimated GFR POC Glucose 164 H 179 H Random Glucose Calcium Phosphorus Magnesium B-Natriuretic Peptide Progress Note: A&P Assessment and plan (1) Opioid use disorder: Status: Acute (2) CHF (congestive heart failure): Status: Acute (3) JOSE (acute kidney injury): Status: Acute (4) Acute on chronic right heart failure: Status: Acute (5) Acute respiratory failure: Status: Acute (6) Hypercapnic respiratory failure: Status: Acute (7) JOSE (acute kidney injury): Status: Acute (8) Chronic pain: Status: Acute (9) New onset of congestive heart failure: Status: Acute (10) Dyspnea: Status: Acute (11) Congestive heart failure: Status: Acute (12) Phantom limb pain: Problem details: I DEMONSTRATED HOW TO USE BELBUCA BY APPLYING A SAMPLE TO HIS RIGHT CHEEK Status: Acute (13) Diabetic neuropathy: Status: Acute (14) Morbid obesity: Status: Acute (15) Diabetes mellitus: Problem details: 15 minute spent on telephone Status: Acute Assessment and Plan: So the plan at this point is to put him on maintenance oral diuretic therapy to include an anti aldosterone agent and the IV Lasix drip has been stopped because sodium is up to 146 and he is probably going to orally replete as we improve his diet but on going to start him on combination vaso dilator therapy with a Nepro lysine inhibitor and an ARB and see how he tolerates both from renal standpoint as well as the blood pressure in any secondary symptoms and check VBG during the day while on nasal high-flow to see if he is improving Time Spent With Patient Time: Total time spent is greater than 50% in coordination of care (as documented) at patient's floor/unit and/or counseling patient: Total time spent with greater than 50% in coordination of care (as documented) at patient's floor/unit and/or counseling patient:: 35
[2020-04-10] MEDS: Sacubitril/Valsartan 24/26 1 TAB TABLET PO (13:51)
[2020-04-10] MEDS: Furosemide 40 MG TABLET PO (13:51)
[2020-04-10] MEDS: Spironolactone 25 MG TABLET PO (13:51)
--- NOTE | 2020-04-10 14:23 | PC.NURSE ---
Pt A&Ox3, on hi-flow at 50L/min, SaO2 while awake 94-98%, will occasionally dip to 82% 2/2 short periods of apnea. Lungs dim with exp rhonchi upper lobes. Plan is to switch over to nocturnal BiPAP as long as pt continues to tolerate high flow. VBG to be repeated at 1500. Urine output 150-350ml/hr while off lasix drip since 0630 today. Pt started on PO lasix, spironalactone, and given one time dose enestro. BP did elevate to 190s/70s, MD aware, PO meds given. Occasionally agitated and did have one episode of getting verbally agressive, was able to be verbally consoled and pt did apologize. NSR 80s
--- NOTE | 2020-04-10 14:25 | P.PNNP_ITS ---
Subjective Subjective Date of Service: 04/10/20 Principal diagnosis: Respiratory failure Interval history: seen and examined events reviewed SOB improved denies chest pain, nausea, vomiting Physical Exam Vital Signs: Vital Signs: Last Vital Signs Temp 98.5 F 04/10/20 12:00 Pulse 81 04/10/20 14:00 Resp 18 04/10/20 14:00 BP 136/65 04/10/20 14:00 Pulse Ox 94 04/10/20 14:00 Body Mass Index 66.0 Const: General: no acute distress HENMT: Head: Yes normocephalic and Yes atraumatic Neck: Neck: Yes supple Resp: Auscultation: diminished lung sounds Cardio: Heart sounds: S1 normal heart sound present and S2 normal heart sound present GI: Palpation (GI): Soft to palpation and nontender Extrem: General: Yes edema Objective Data Labs CBC & Chem 7: 04/10/20 04:46 04/10/20 04:46 Labs: Laboratory Results - last 24 hr 04/09/20 04/09/20 04/10/20 16:01 22:32 00:11 WBC RBC Hgb Hct MCV MCH MCHC RDW Plt Count MPV Immature Gran % (Auto) Neut % (Auto) Lymph % (Auto) [place] % (Auto) Eos % (Auto) Baso % (Auto) Lymph # (Auto) [place] # (Auto) Eos # (Auto) Baso # (Auto) Abs Immat Gran (auto) Absolute Neuts (auto) Absolute Nucleated RBC Nucleated RBC % (auto) Smear Tech's Comments VBG pH 7.33 VBG pCO2 68 VBG pO2 47 VBG HCO3 35 VBG O2 Saturation 78.3 VBG Base Excess 7.8 Sodium Potassium Chloride Carbon Dioxide Anion Gap BUN Creatinine Estim Creat Clear Calc Estimated GFR POC Glucose 173 H 154 H Random Glucose Calcium Phosphorus Magnesium B-Natriuretic Peptide 04/10/20 04/10/20 04/10/20 04:46 04:46 04:46 WBC 3.3 L RBC 3.42 L Hgb 10.5 L Hct 35.5 L MCV 103.8 H MCH 30.7 MCHC 29.6 L RDW 14.3 Plt Count 112 L MPV 9.4 Immature Gran % (Auto) 0.9 H Neut % (Auto) 72.2 Lymph % (Auto) 16.0 L [place] % (Auto) 8.5 Eos % (Auto) 2.1 Baso % (Auto) 0.3 Lymph # (Auto) 0.5 L [place] # (Auto) 0.3 Eos # (Auto) 0.1 Baso # (Auto) 0.0 Abs Immat Gran (auto) 0.03 Absolute Neuts (auto) 2.4 Absolute Nucleated RBC 0.000 Nucleated RBC % (auto) 0.0 Smear Tech's Comments VERIFIED VBG pH VBG pCO2 VBG pO2 VBG HCO3 VBG O2 Saturation VBG Base Excess Sodium 146 H Potassium 3.8 Chloride 98 Carbon Dioxide 39 H Anion Gap 13 BUN 22 H Creatinine 1.20 Estim Creat Clear Calc 124.8 Estimated GFR > 60 POC Glucose Random Glucose 158 H Calcium 8.3 L Phosphorus 3.3 Magnesium 1.8 B-Natriuretic Peptide 82 04/10/20 04/10/20 04/10/20 05:01 07:12 11:07 WBC RBC Hgb Hct MCV MCH MCHC RDW Plt Count MPV Immature Gran % (Auto) Neut % (Auto) Lymph % (Auto) [place] % (Auto) Eos % (Auto) Baso % (Auto) Lymph # (Auto) [place] # (Auto) Eos # (Auto) Baso # (Auto) Abs Immat Gran (auto) Absolute Neuts (auto) Absolute Nucleated RBC Nucleated RBC % (auto) Smear Tech's Comments VBG pH 7.38 VBG pCO2 70 VBG pO2 38 VBG HCO3 40 VBG O2 Saturation 74.3 VBG Base Excess 12.2 Sodium Potassium Chloride Carbon Dioxide Anion Gap BUN Creatinine Estim Creat Clear Calc Estimated GFR POC Glucose 164 H 179 H Random Glucose Calcium Phosphorus Magnesium B-Natriuretic Peptide Assessment & Plan Assessment and plan (1) JOSE (acute kidney injury): Status: Acute (2) CHF (congestive heart failure): Status: Acute Assessment and Plan: kidney function better volume status improved I/O - 16 L since admission JOSE due to renal hypoperfusion in the setting of decompensated heart failure right sided heart failure REC transition to oral furosemide acetazolamide for TCO2 > = 40 follow kidney function and electrolytes Time Spent With Patient Time: Total time spent is greater than 50% in coordination of care (as documented) at patient's floor/unit and/or counseling patient:
[2020-04-10 16:17] LABS: Base Excess VBG 11.1 mmol/L; HCO3 VBG 39 mmol/L; PCO2 VBG 68 mmhg; PO2 VBG 34 mmhg; pH VBG 7.37 (7.32-7.43)
[2020-04-10 16:18] LABS: Blood Gas Serial # 5396; Oxygen Saturation VBG 64.3 %
[2020-04-10 16:36] LABS: Glucose, Whole Blood 210 mg/dL (60-115)
[2020-04-10 21:22] LABS: Glucose, Whole Blood 197 mg/dL (60-115)
--- NOTE | 2020-04-10 21:37 | PM.EVENT ---
Event Note Date of Service: 04/10/20 Event Note: He has some pain relief with Morphine IR 15 mg tid He may benefit from Morphine IR up to qid
[2020-04-10] MEDS: Topiramate 100 MG TABLET PO (21:40)
[2020-04-10] MEDS: Pravastatin Sodium 10 MG TABLET PO (21:40)
[2020-04-10] MEDS: traZODone HCL 50 MG TABLET PO (21:41)
[2020-04-10] MEDS: Melatonin 3 MG TABLET 6 MG PO (21:41)
--- NOTE | 2020-04-10 23:50 | PC.NURSE ---
Shift eval 3p-11p: Tolerating high flow 50 liters, 40% Fio2. Patient frequently being asked to be repositioned, on special bariatric matress. Drinking and eating meals. Vitals stable. Lungs diminished throughout. C/o pain - Medicated w/ scheduled MS contin. Medicated w/ HS trazadone & melatonin for sleep. Educated patient, plan for bipap for night.
[2020-04-11] VITALS (28 sets, daily range): BP systolic 119–170; BP diastolic 54–79; PULSE 68–84; RESP 12–22; TEMP 36.1–36.9; O2SAT 90–100; BMI 64.0
--- NOTE | 2020-04-11 02:00 | PC.NURSE ---
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 PREVIOUSLY NOTED PRIOR NIGHTS PATIENT WITH SIGNIFICANT SLEEP APNEA...SAO2 CYCLES MQXD28-15% TO 75-80% TO 98%..ASYMPTOMATIC WHEN AWAKENED...CURRENTLY DOZING...Ve 16 L/M...CVP 18-20
[2020-04-11] MEDS: Levothyroxine Sodium 75 MCG TABLET 37.5 MCG PO (05:56)
[2020-04-11] MEDS: Omeprazole 20 MG CAPSULE.DR PO ×3 (05:56→16:03)
[2020-04-11 06:17] LABS: Basophils Percent Auto 0.3 % (0-2); Eosinophils Absolute Auto 0.1 X10*3/uL (0.0-0.4); Eosinophils Percent Auto 3.1 % (0-4); Hematocrit 33.1 % (42-52); Hemoglobin 9.9 g/dl (14.0-18.0); Imm Gran Abs Auto 0.02 X10*3/uL (0.00-0.03); Imm Gran Pct Auto 0.7 % (0.0-0.4); Lymphocytes Absolute Auto 0.4 X10*3/uL (1.2-4.9); Lymphocytes Percent Auto 14.3 % (20-40); MANUAL DIFF FLAG SCAN; Mean Corpuscular HGB Conc 29.9 g/dl (31.0-36.0); Mean Corpuscular Hemoglobin 30.7 pg (27.0-33.0); Mean Corpuscular Volume 102.8 fL (80-98); Mean Platelet Volume 9.4 fL (9.4-12.4); Monocytes Absolute Auto 0.3 X10*3/uL (0.1-1.2); Monocytes Percent Auto 9.1 % (2-11); Neutrophils Absolute Auto 2.1 X10*3/uL (2.0-8.3); Neutrophils Percent Auto 72.5 % (45-73); Red Blood Count 3.22 X10*6/uL (4.60-5.80); Red Cell Distribution Width 13.6 % (11.0-16.0); SCAN SMEAR FLAG 1; White Blood Count 2.9 X10*3/uL (4.8-10.8)
[2020-04-11 06:21] LABS: Platelet Count 98 X10*3/uL (160-400)
[2020-04-11 06:35] LABS: HCO3 VBG 34 mmol/L; Oxygen Saturation VBG 89.2 %; PCO2 VBG 78 mmhg; PO2 VBG 68 mmhg; pH VBG 7.26 (7.32-7.43)
[2020-04-11 06:36] LABS: Base Excess VBG 5.4 mmol/L
[2020-04-11 06:49] LABS: Anion Gap 9 (12-20); Blood Urea Nitrogen 19 mg/dL (9-16); Calcium 8.3 mg/dL (8.4-10.2); Carbon Dioxide 42 mmol/L (22-29); Chloride 96 mmol/L (96-108); Creatinine Clr Calc Pharmacy 121.4; Estimated Glomerular Filt Rate > 60; Glucose Random 195 mg/dL (60-115); Magnesium 1.9 mg/dL (1.6-2.6); Phosphorus 4.3 mg/dL (2.7-4.5); Potassium 3.8 mmol/l (3.3-5.1); Sodium 143 mmol/L (135-145)
[2020-04-11 06:53] LABS: SLIDE REVIEW VERIFIED
[2020-04-11 07:35] LABS: Glucose, Whole Blood 177 mg/dL (60-115)
[2020-04-11] MEDS: metOLazone 2.5 MG TABLET PO (08:34)
[2020-04-11] MEDS: Dicyclomine HCl 10 MG CAPSULE 20 MG PO ×4 (08:34→20:25)
[2020-04-11] MEDS: Heparin Sodium,Porcine 5,000 UNIT/ML VIAL 5000 UNIT SUBCUT ×2 (08:35→16:09)
[2020-04-11] MEDS: Morphine Sulfate ER 15 MG TABLET.ER PO ×2 (08:35→15:57)
[2020-04-11] MEDS: cloNIDine HCL 0.1 MG TABLET PO ×2 (08:35→20:25)
[2020-04-11] MEDS: Pregabalin 50 MG CAPSULE PO (08:36)
[2020-04-11] MEDS: Cholecalciferol (Vitamin D3) 25 MCG TABLET PO (08:36)
[2020-04-11] MEDS: Furosemide 40 MG TABLET PO (08:36)
[2020-04-11] MEDS: Aspirin Enteric Coated 81 MG TABLET.DR PO (08:36)
[2020-04-11] MEDS: Insulin Lispro 100 UNIT/ML 3 ML VIAL SUBCUT ×4 (08:36→20:26)
[2020-04-11] MEDS: Sacubitril/Valsartan 24/26 1 TAB TABLET PO ×2 (08:36→20:25)
[2020-04-11] MEDS: Spironolactone 25 MG TABLET PO (08:36)
[2020-04-11] MEDS: 0.9 % Sodium Chloride Flush 3 ML SYRINGE IVFLUSH ×2 (08:47→15:58)
[2020-04-11 08:57] LABS: Base Excess VBG 13.2 mmol/L; HCO3 VBG 43 mmol/L; Oxygen Saturation VBG 82.1 %; PCO2 VBG 88 mmhg; PO2 VBG 52 mmhg
--- NOTE | 2020-04-11 09:26 | MHC.CLN ---
F/U DIET ADVANCED TO 1999DM RECOMMEND 1800DM 2GM NA R/T DX CHF FOLLOWING
--- NOTE | 2020-04-11 10:52 | P.PNCA_ITS ---
Subjective Subjective Date of Service: 04/11/20 Principal diagnosis: Respiratory failure Interval history: Overall, doing ok. Essentially in bed. Offering no specific complaints. Review of Systems Review of Systems Yes all other systems are reviewed and are negative Constitutional: Reports weakness Cardiovascular: Reports as per HPI, Reports no additional cardiovascular complaints, Denies chest pain, Denies chest pain at rest, Denies chest pain with activity, Denies diaphoresis, Denies rapid heart rate, Denies leg ulcers, Denies leg edema, Denies lightheadedness, Denies Loss of Consciousness, Denies radiating jaw, neck or arm pain, Denies palpitations, Reports dyspnea and Reports dyspnea on exertion Respiratory: Reports dyspnea and Reports dyspnea on exertion Reports system reviewed and no additional complaints, except as documented and Reports weakness Endocrine: Denies palpitations Physical Exam Vital Signs: Last Vital Signs Temp 97.5 F 04/11/20 08:00 Pulse 77 04/11/20 10:00 Resp 22 H 04/11/20 10:00 BP 148/71 H 04/11/20 10:00 Pulse Ox 96 04/11/20 10:00 Body Mass Index 64.0 Const General: cooperative, comfortable and no acute distress Orientation/consciousness: patient oriented x3 HENID Other: Unremarkable Neck Neck: Yes normal visual inspection Chest Chest palpation & inspection: normal inspection of the chest Resp Auscultation: no crackles, no wheezes and diminished lung sounds Cardio Jugular venous distension: no JVD Palpation: normal PMI Heart sounds: S1 normal heart sound present, S2 normal heart sound present, no gallops, no murmurs and no rubs GI Palpation (GI): Soft to palpation Back/Spine/Pelvis Other: unremarkable Skin General skin exam: no rashes or lesions noted Neuro General: patient oriented x3 Psych Mental Status: mental status grossly normal Results Labs and Meds Result diagrams: 04/11/20 05:05 04/11/20 05:05 Lab results: Laboratory Results - last 24 hr 04/10/20 04/10/20 04/10/20 11:07 15:44 16:33 WBC RBC Hgb Hct MCV MCH MCHC RDW Plt Count MPV Immature Gran % (Auto) Neut % (Auto) Lymph % (Auto) [place] % (Auto) Eos % (Auto) Baso % (Auto) Lymph # (Auto) [place] # (Auto) Eos # (Auto) Baso # (Auto) Abs Immat Gran (auto) Absolute Neuts (auto) Absolute Nucleated RBC Nucleated RBC % (auto) Smear Tech's Comments VBG pH 7.37 VBG pCO2 68 VBG pO2 34 VBG HCO3 39 VBG O2 Saturation 64.3 VBG Base Excess 11.1 Sodium Potassium Chloride Carbon Dioxide Anion Gap BUN Creatinine Estim Creat Clear Calc Estimated GFR POC Glucose 179 H 210 H Random Glucose Calcium Phosphorus Magnesium 04/10/20 04/11/20 04/11/20 21:15 05:05 05:05 WBC 2.9 L RBC 3.22 L Hgb 9.9 L Hct 33.1 L MCV 102.8 H MCH 30.7 MCHC 29.9 L RDW 13.6 Plt Count 98 L MPV 9.4 Immature Gran % (Auto) 0.7 H Neut % (Auto) 72.5 Lymph % (Auto) 14.3 L [place] % (Auto) 9.1 Eos % (Auto) 3.1 Baso % (Auto) 0.3 Lymph # (Auto) 0.4 L [place] # (Auto) 0.3 Eos # (Auto) 0.1 Baso # (Auto) 0.0 Abs Immat Gran (auto) 0.02 Absolute Neuts (auto) 2.1 Absolute Nucleated RBC 0.000 Nucleated RBC % (auto) 0.0 Smear Tech's Comments VERIFIED VBG pH VBG pCO2 VBG pO2 VBG HCO3 VBG O2 Saturation VBG Base Excess Sodium 143 Potassium 3.8 Chloride 96 Carbon Dioxide 42 H* Anion Gap 9 L BUN 19 H Creatinine 1.21 Estim Creat Clear Calc 121.4 Estimated GFR > 60 POC Glucose 197 H Random Glucose 195 H Calcium 8.3 L Phosphorus 4.3 Magnesium 1.9 04/11/20 04/11/20 04/11/20 05:05 07:31 08:10 WBC RBC Hgb Hct MCV MCH MCHC RDW Plt Count MPV Immature Gran % (Auto) Neut % (Auto) Lymph % (Auto) [place] % (Auto) Eos % (Auto) Baso % (Auto) Lymph # (Auto) [place] # (Auto) Eos # (Auto) Baso # (Auto) Abs Immat Gran (auto) Absolute Neuts (auto) Absolute Nucleated RBC Nucleated RBC % (auto) Smear Tech's Comments VBG pH 7.26 L 7.30 L VBG pCO2 78 88 VBG pO2 68 52 VBG HCO3 34 43 VBG O2 Saturation 89.2 82.1 VBG Base Excess 5.4 13.2 Sodium Potassium Chloride Carbon Dioxide Anion Gap BUN Creatinine Estim Creat Clear Calc Estimated GFR POC Glucose 177 H Random Glucose Calcium Phosphorus Magnesium Progress Note: A&P Assessment and plan (1) Acute on chronic right heart failure: Status: Acute (2) Acute respiratory failure: Status: Acute (3) Morbid obesity: Status: Acute Assessment and Plan: Suspected obesity related hypo-ventilation syndrome and right heart failure. Off Lasix drip. On oral Lasix. Also been started on Metolazone. Will need to decide on maintenance dosing. Otherwise, enforced using CPAP regularly at home. If he continues to be acidotic, ?need for tracheostomy. Fall Risk Details Current Medications: Current Medications Generic Name Dose Route Start Last Admin Trade Name Freq PRN Reason Stop Dose Admin Acetaminophen 650 mg 04/06/20 23:07 Acetaminophen 325 Mg Tablet PO Q6H PRN Pain, Mild (Pain Scale 1-3) Aspirin 81 mg 04/07/20 09:00 04/11/20 08:36 Aspirin Enteric Coated 81 Mg Tablet.Dr PO 81 mg DAILY REGGIE Administration Calcium Carbonate 500 mg 04/07/20 09:00 04/11/20 08:34 Calcium Carbonate 500 Mg Tablet PO 500 mg DAILY REGGIE Administration Clonidine HCl 0.1 mg 04/06/20 23:07 04/11/20 08:35 Clonidine Hcl 0.1 Mg Tablet PO 0.1 mg BID REGGIE Administration Protocol Cyclobenzaprine HCl 5 mg 04/06/20 23:07 04/10/20 23:44 Cyclobenzaprine Hcl 5 Mg Tablet PO 5 mg TID PRN Administration Pain Dicyclomine HCl 20 mg 04/06/20 23:07 04/11/20 08:34 Dicyclomine Hcl 10 Mg Capsule PO 20 mg QID REGGIE Administration Docusate Sodium 100 mg 04/06/20 23:07 Docusate Sodium 100 Mg Capsule PO DAILY PRN Constipation Furosemide 40 mg 04/10/20 13:30 04/11/20 08:36 Furosemide 40 Mg Tablet PO 40 mg DAILY REGGIE Administration Protocol Heparin Sodium (Porcine) 5,000 unit 04/07/20 00:00 04/11/20 08:35 Heparin Sodium,Porcine 5,000 Unit/Ml Vial SUBCUT 5,000 unit Q8H REGGIE Administration Insulin Human Lispro 0 unit 04/07/20 07:30 04/11/20 08:36 Insulin Lispro 100 Unit/Ml 3 Ml Vial SUBCUT 2 unit QIDACHS REGGIE Administration Protocol Levothyroxine Sodium 37.5 mcg 04/07/20 06:30 04/11/20 05:56 Levothyroxine Sodium 75 Mcg Tablet PO 37.5 mcg DAILY@0630 REGGIE Administration Melatonin 6 mg 04/06/20 23:07 04/10/20 21:41 Melatonin 3 Mg Tablet PO 6 mg BEDTIME PRN Administration Sleep Metolazone 2.5 mg 04/11/20 09:00 04/11/20 08:34 Metolazone 2.5 Mg Tablet PO 2.5 mg DAILY REGGIE Administration Morphine Sulfate 15 mg 04/09/20 23:30 04/11/20 08:35 Morphine Sulfate Er 15 Mg Tablet.Er PO 15 mg Q8H REGGIE Administration Omeprazole 20 mg 04/06/20 23:07 04/11/20 05:56 Omeprazole 20 Mg Capsule.Dr PO 20 mg BID@0630,1630 REGGIE Administration Ondansetron HCl 4 mg 04/06/20 23:07 Ondansetron Hcl 4 Mg/2 Ml Vial IVPUSH Q8H PRN Nausea and Vomiting Pharmacy Consult 1 each 04/06/20 20:04 Consult Rx Perform Med Rec MISCELLANE ONCE PRN Consult order Pravastatin Sodium 10 mg 04/06/20 23:07 04/10/20 21:40 Pravastatin Sodium 10 Mg Tablet PO 10 mg BEDTIME REGGIE Administration Pregabalin 50 mg 04/09/20 09:00 04/11/20 08:36 Pregabalin 50 Mg Capsule PO 50 mg DAILY REGGIE Administration Sacubitril/Valsartan 1 tab 04/11/20 09:00 04/11/20 08:36 Sacubitril/Valsartan 1 Tab Tablet PO 1 tab BID REGGIE Administration Protocol Sodium Chloride 3 ml 04/07/20 00:00 04/11/20 08:47 0.9 % Sodium Chloride Flush 3 Ml Syringe IVFLUSH 3 ml QSHIFT REGGIE Administration Spironolactone 25 mg 04/10/20 13:30 04/11/20 08:36 Spironolactone 25 Mg Tablet PO 25 mg DAILY REGGIE Administration Protocol Topiramate 100 mg 04/06/20 23:07 04/10/20 21:40 Topiramate 100 Mg Tablet PO 100 mg BEDTIME REGGIE Administration Trazodone HCl 50 mg 04/06/20 23:07 04/10/20 21:41 Trazodone Hcl 50 Mg Tablet PO 50 mg BEDTIME PRN Administration Sleep Vitamin D 25 mcg 04/07/20 09:00 04/11/20 08:36 Cholecalciferol (Vitamin D3) 25 Mcg Tablet PO 25 mcg DAILY REGGIE Administration Time Spent With Patient Time: Total time spent is greater than 50% in coordination of care (as documente d) at patient's floor/unit and/or counseling patient: Time with patient: less than 15 minutes
--- NOTE | 2020-04-11 10:58 | PM.PNNEP ---
Subjective Subjective Date of Service: 04/11/20 Principal diagnosis: Respiratory failure Interval history: seen and examined denies SOB, chest pain, nausea, vomiting Physical Exam Vital Signs: Vital Signs: Last Vital Signs Temp 97.5 F 04/11/20 08:00 Pulse 77 04/11/20 10:00 Resp 22 H 04/11/20 10:00 BP 148/71 H 04/11/20 10:00 Pulse Ox 96 04/11/20 10:00 Body Mass Index 64.0 Const: General: no acute distress HENMT: Head: Yes normocephalic and Yes atraumatic Neck: Neck: Yes supple Resp: Auscultation: diminished lung sounds Cardio: Heart sounds: S1 normal heart sound present and S2 normal heart sound present GI: Palpation (GI): Soft to palpation and nontender Extrem: General: Yes edema Objective Data Labs CBC & Chem 7: 04/11/20 05:05 04/11/20 05:05 Labs: Laboratory Results - last 24 hr 04/10/20 04/10/20 04/10/20 11:07 15:44 16:33 WBC RBC Hgb Hct MCV MCH MCHC RDW Plt Count MPV Immature Gran % (Auto) Neut % (Auto) Lymph % (Auto) [place] % (Auto) Eos % (Auto) Baso % (Auto) Lymph # (Auto) [place] # (Auto) Eos # (Auto) Baso # (Auto) Abs Immat Gran (auto) Absolute Neuts (auto) Absolute Nucleated RBC Nucleated RBC % (auto) Smear Tech's Comments VBG pH 7.37 VBG pCO2 68 VBG pO2 34 VBG HCO3 39 VBG O2 Saturation 64.3 VBG Base Excess 11.1 Sodium Potassium Chloride Carbon Dioxide Anion Gap BUN Creatinine Estim Creat Clear Calc Estimated GFR POC Glucose 179 H 210 H Random Glucose Calcium Phosphorus Magnesium 04/10/20 04/11/20 04/11/20 21:15 05:05 05:05 WBC 2.9 L RBC 3.22 L Hgb 9.9 L Hct 33.1 L MCV 102.8 H MCH 30.7 MCHC 29.9 L RDW 13.6 Plt Count 98 L MPV 9.4 Immature Gran % (Auto) 0.7 H Neut % (Auto) 72.5 Lymph % (Auto) 14.3 L [place] % (Auto) 9.1 Eos % (Auto) 3.1 Baso % (Auto) 0.3 Lymph # (Auto) 0.4 L [place] # (Auto) 0.3 Eos # (Auto) 0.1 Baso # (Auto) 0.0 Abs Immat Gran (auto) 0.02 Absolute Neuts (auto) 2.1 Absolute Nucleated RBC 0.000 Nucleated RBC % (auto) 0.0 Smear Tech's Comments VERIFIED VBG pH VBG pCO2 VBG pO2 VBG HCO3 VBG O2 Saturation VBG Base Excess Sodium 143 Potassium 3.8 Chloride 96 Carbon Dioxide 42 H* Anion Gap 9 L BUN 19 H Creatinine 1.21 Estim Creat Clear Calc 121.4 Estimated GFR > 60 POC Glucose 197 H Random Glucose 195 H Calcium 8.3 L Phosphorus 4.3 Magnesium 1.9 04/11/20 04/11/20 04/11/20 05:05 07:31 08:10 WBC RBC Hgb Hct MCV MCH MCHC RDW Plt Count MPV Immature Gran % (Auto) Neut % (Auto) Lymph % (Auto) [place] % (Auto) Eos % (Auto) Baso % (Auto) Lymph # (Auto) [place] # (Auto) Eos # (Auto) Baso # (Auto) Abs Immat Gran (auto) Absolute Neuts (auto) Absolute Nucleated RBC Nucleated RBC % (auto) Smear Tech's Comments VBG pH 7.26 L 7.30 L VBG pCO2 78 88 VBG pO2 68 52 VBG HCO3 34 43 VBG O2 Saturation 89.2 82.1 VBG Base Excess 5.4 13.2 Sodium Potassium Chloride Carbon Dioxide Anion Gap BUN Creatinine Estim Creat Clear Calc Estimated GFR POC Glucose 177 H Random Glucose Calcium Phosphorus Magnesium Assessment & Plan Assessment and plan (1) JOSE (acute kidney injury): Status: Acute (2) CHF (congestive heart failure): Status: Acute Assessment and Plan: kidney function at baseline volume status improved JOSE due to renal hypoperfusion in the setting of decompensated heart failure right sided heart failure REC oral furosemide 40 mg daily acetazolamide for TCO2 > = 40 follow kidney function and electrolytes Time Spent With Patient Time: Total time spent is greater than 50% in coordination of care (as documented) at patient's floor/unit and/or counseling patient:
[2020-04-11 11:17] LABS: Glucose, Whole Blood 241 mg/dL (60-115)
[2020-04-11 12:45] LABS: Base Excess VBG 11.7 mmol/L; HCO3 VBG 40 mmol/L; Oxygen Saturation VBG 74.1 %; PCO2 VBG 77 mmhg; PO2 VBG 42 mmhg; pH VBG 7.33 (7.32-7.43)
--- NOTE | 2020-04-11 13:58 | PM.CCPN ---
Subjective Subjective Date of Service: 04/11/20 Interval History: 49-year-old morbidly obese type 2 diabetic and hypertensive with obesity/hypoventilation and obstructive sleep apnea and chronic cor pulmonale came in with massive fluid overload and acute on chronic hypercapnic and hypoxic respiratory failure and has since been diuresed nearly 35 lb and currently on a building oral did combination diuretic regimen and I just started him on sacubitril/valsartan as vasodilators/antihypertensive therapy Today I added metolazone at 2.5 mg to his spironolactone and Lasix combination giving us an increased urinary volume and blood pressures which had remained comfortably in the 130-140 range most of the day still spiked and episodically up to 180 systolic so he might need the dose of Entresto to be increased to the next level over the course of the next 24 hours because his CVP readings are still averaging between 18 and 21 and left ventricular diastolic failure may still be contributing therefore the no to some of that CVP elevation Most importantly we switched his BiPAP delivery system to nasal pillows which he found much more comfortable than the mask and therefore more cooperative with better and consistent volume delivery his minute ventilation improved pCO2 came down to 68 which is close to his chronic level with a compensated pH of 7.38 and therefore we have a stable mechanism for nocturnal and p.r.n. BiPAP utilizing the nasal pillows and during the day for any physical rehab and for his meals he does very well with nasal high-flow No evidence of infectious etiology it appears that the fluid retention combined with the diastolic CHF superimposed on his chronic pulmonary hypertension which is part and parcel of his obesity hypoventilation syndrome He will need a pulmonary consult for outpatient follow-up and he already has a CPAP device at home which she claims is not working so he would just need outpatient arrangement to have a working device Physical Exam Vital Signs: Vital Signs: Last Vital Signs Temp 98.0 F 04/11/20 12:00 Pulse 76 04/11/20 13:00 Resp 13 04/11/20 13:00 BP 145/58 H 04/11/20 13:00 Pulse Ox 93 04/11/20 13:00 Body Mass Index 64.0 Const: Other: Awake alert oriented x3 and nonfocal neurologically CVP is 18-21 but has good bilateral carotid upstrokes normal sinus rhythm rate 80 and no gallops or murmurs Diminished bilateral breath sounds but no adventitious sounds Abdomen nontender and nondistended no palpable organomegaly Still has significant peripheral edema but skin is intact with no wounds no breakdown no acrocyanosis Objective Data Labs CBC & Chem 7: 04/11/20 05:05 04/11/20 05:05 Labs: Laboratory Results - last 24 hr 04/10/20 04/10/20 04/10/20 15:44 16:33 21:15 WBC RBC Hgb Hct MCV MCH MCHC RDW Plt Count MPV Immature Gran % (Auto) Neut % (Auto) Lymph % (Auto) [place] % (Auto) Eos % (Auto) Baso % (Auto) Lymph # (Auto) [place] # (Auto) Eos # (Auto) Baso # (Auto) Abs Immat Gran (auto) Absolute Neuts (auto) Absolute Nucleated RBC Nucleated RBC % (auto) Smear Tech's Comments VBG pH 7.37 VBG pCO2 68 VBG pO2 34 VBG HCO3 39 VBG O2 Saturation 64.3 VBG Base Excess 11.1 Sodium Potassium Chloride Carbon Dioxide Anion Gap BUN Creatinine Estim Creat Clear Calc Estimated GFR POC Glucose 210 H 197 H Random Glucose Calcium Phosphorus Magnesium 04/11/20 04/11/20 04/11/20 05:05 05:05 05:05 WBC 2.9 L RBC 3.22 L Hgb 9.9 L Hct 33.1 L MCV 102.8 H MCH 30.7 MCHC 29.9 L RDW 13.6 Plt Count 98 L MPV 9.4 Immature Gran % (Auto) 0.7 H Neut % (Auto) 72.5 Lymph % (Auto) 14.[address] [place] % (Auto) 9.1 Eos % (Auto) 3.1 Baso % (Auto) 0.3 Lymph # (Auto) 0.[address] [place] # (Auto) 0.3 Eos # (Auto) 0.1 Baso # (Auto) 0.0 Abs Immat Gran (auto) 0.02 Absolute Neuts (auto) 2.1 Absolute Nucleated RBC 0.000 Nucleated RBC % (auto) 0.0 Smear Tech's Comments VERIFIED VBG pH 7.26 L VBG pCO2 78 VBG pO2 68 VBG HCO3 34 VBG O2 Saturation 89.2 VBG Base Excess 5.4 Sodium 143 Potassium 3.8 Chloride 96 Carbon Dioxide 42 H* Anion Gap 9 L BUN 19 H Creatinine 1.21 Estim Creat Clear Calc 121.4 Estimated GFR > 60 POC Glucose Random Glucose 195 H Calcium 8.3 L Phosphorus 4.3 Magnesium 1.9 04/11/20 04/11/20 04/11/20 07:31 08:10 11:12 WBC RBC Hgb Hct MCV MCH MCHC RDW Plt Count MPV Immature Gran % (Auto) Neut % (Auto) Lymph % (Auto) [place] % (Auto) Eos % (Auto) Baso % (Auto) Lymph # (Auto) [place] # (Auto) Eos # (Auto) Baso # (Auto) Abs Immat Gran (auto) Absolute Neuts (auto) Absolute Nucleated RBC Nucleated RBC % (auto) Smear Tech's Comments VBG pH 7.30 L VBG pCO2 88 VBG pO2 52 VBG HCO3 43 VBG O2 Saturation 82.1 VBG Base Excess 13.2 Sodium Potassium Chloride Carbon Dioxide Anion Gap BUN Creatinine Estim Creat Clear Calc Estimated GFR POC Glucose 177 H 241 H Random Glucose Calcium Phosphorus Magnesium 04/11/20 11:58 WBC RBC Hgb Hct MCV MCH MCHC RDW Plt Count MPV Immature Gran % (Auto) Neut % (Auto) Lymph % (Auto) [place] % (Auto) Eos % (Auto) Baso % (Auto) Lymph # (Auto) [place] # (Auto) Eos # (Auto) Baso # (Auto) Abs Immat Gran (auto) Absolute Neuts (auto) Absolute Nucleated RBC Nucleated RBC % (auto) Smear Tech's Comments VBG pH 7.33 VBG pCO2 77 VBG pO2 42 VBG HCO3 40 VBG O2 Saturation 74.1 VBG Base Excess 11.7 Sodium Potassium Chloride Carbon Dioxide Anion Gap BUN Creatinine Estim Creat Clear Calc Estimated GFR POC Glucose Random Glucose Calcium Phosphorus Magnesium Progress Note: A&P Assessment and plan (1) Opioid use disorder: Status: Acute (2) CHF (congestive heart failure): Status: Acute (3) JOSE (acute kidney injury): Status: Acute (4) Acute on chronic right heart failure: Status: Acute (5) Acute respiratory failure: Status: Acute (6) Hypercapnic respiratory failure: Status: Acute (7) Chronic pain: Status: Acute (8) New onset of congestive heart failure: Status: Acute (9) Dyspnea: Status: Acute (10) Congestive heart failure: Status: Acute (11) Phantom limb pain: Problem details: I DEMONSTRATED HOW TO USE BELBUCA BY APPLYING A SAMPLE TO HIS RIGHT CHEEK Status: Acute (12) Diabetic neuropathy: Status: Acute (13) Morbid obesity: Status: Acute (14) Diabetes mellitus: Problem details: 15 minute spent on telephone Status: Acute (15) Obesity hypoventilation syndrome: Status: Acute Assessment and Plan: So the plan is to continue with nocturnal BiPAP utilizing nasal pillows which could also be used for p.r.n. purposes and in between for meals in rehab nasal high-flow and will need a pulmonary consult to qualify him for positive-pressure device for home and for the diastolic CHF combination of diuretics currently including metolazone and spironolactone and Lasix to alleviate the balance of his 3rd spaced reservoir fluid and as vaso dilator therapy he is on the 1st dose of Entresto and depending on blood pressure might need to have that advanced to the 2nd dose level Time Spent With Patient Time: Total time spent is greater than 50% in coordination of care (as documented) at patient's floor/unit and/or counseling patient: Total time spent with greater than 50% in coordination of care (as documented) at patient's floor/unit and/or counseling patient:: 35 No Severe Sepsis: No Severe Sepsis
--- NOTE | 2020-04-11 14:34 | PC.NURSE ---
pt alert and oriented, repeat vbgs drawn and pt placed on high flow to eat/ repeat vbgs drawn at 1200 while pt on high flow, md aware of results, pt continues to be alert and oriented. Moser output 1100ml this shift.
[2020-04-11 15:27] LABS: HCO3 VBG 37 mmol/L; Oxygen Saturation VBG 71.5 %; PCO2 VBG 68 mmhg; PO2 VBG 39 mmhg; pH VBG 7.35 (7.32-7.43)
[2020-04-11 16:20] LABS: Glucose, Whole Blood 215 mg/dL (60-115)
[2020-04-11 19:55] LABS: Glucose, Whole Blood 245 mg/dL (60-115)
[2020-04-11] MEDS: Pravastatin Sodium 10 MG TABLET PO (20:25)
[2020-04-11] MEDS: Topiramate 100 MG TABLET PO (20:25)
[2020-04-11] MEDS: Melatonin 3 MG TABLET 6 MG PO (20:34)
[2020-04-11] MEDS: traZODone HCL 50 MG TABLET PO (20:34)
[2020-04-11] MEDS: Cyclobenzaprine HCl 5 MG TABLET PO (20:34)
[2020-04-12] VITALS (16 sets, daily range): BP systolic 149–172; BP diastolic 60–78; PULSE 75–82; RESP 13–23; TEMP 35.7–36.9; O2SAT 92–100; BMI 66.5
--- NOTE | 2020-04-12 | NM_ITS ---
EXAMINATION: NM LUNG IMAGE PERFUSION CLINICAL INFORMATION: Positive d-dimer COMPARISON: Chest x-ray 04/08/2020 TECHNIQUE: Following intravenous administration of 4 mCi of Tc 99m MAA, imaging of both lungs were obtained multiple projections. Ventilation study was not performed FINDINGS: There is normal perfusion seen to all segments of both lobes with no segmental or nonsegmental defect. NM/NM pul perfusion IMPRESSION: Normal lung perfusion scan.
[2020-04-12] MEDS: Heparin Sodium,Porcine 5,000 UNIT/ML VIAL 5000 UNIT SUBCUT ×4 (00:01→23:23)
[2020-04-12] MEDS: Morphine Sulfate ER 15 MG TABLET.ER PO ×4 (00:05→23:23)
[2020-04-12] MEDS: 0.9 % Sodium Chloride Flush 3 ML SYRINGE IVFLUSH ×4 (00:10→23:24)
[2020-04-12] MEDS: Cyclobenzaprine HCl 5 MG TABLET PO ×3 (03:31→23:23)
[2020-04-12] MEDS: Levothyroxine Sodium 75 MCG TABLET 37.5 MCG PO (05:57)
[2020-04-12 07:06] LABS: Eosinophils Absolute Auto 0.1 X10*3/uL (0.0-0.4); Eosinophils Percent Auto 2.9 % (0-4); Hematocrit 34.2 % (42-52); Hemoglobin 10.4 g/dl (14.0-18.0); Imm Gran Abs Auto 0.01 X10*3/uL (0.00-0.03); Imm Gran Pct Auto 0.4 % (0.0-0.4); Lymphocytes Absolute Auto 0.3 X10*3/uL (1.2-4.9); MANUAL DIFF FLAG SCAN; Mean Corpuscular HGB Conc 30.4 g/dl (31.0-36.0); Mean Corpuscular Hemoglobin 30.2 pg (27.0-33.0); Mean Corpuscular Volume 99.4 fL (80-98); Mean Platelet Volume 9.7 fL (9.4-12.4); Monocytes Absolute Auto 0.3 X10*3/uL (0.1-1.2); Monocytes Percent Auto 10.9 % (2-11); Neutrophils Percent Auto 73.8 % (45-73); Red Blood Count 3.44 X10*6/uL (4.60-5.80); Red Cell Distribution Width 13.5 % (11.0-16.0); SCAN SMEAR FLAG 1; White Blood Count 2.7 X10*3/uL (4.8-10.8)
[2020-04-12 07:09] LABS: Platelet Count 98 X10*3/uL (160-400)
[2020-04-12 07:13] LABS: Anion Gap 12 (12-20); Blood Urea Nitrogen 19 mg/dL (9-16); Calcium 8.6 mg/dL (8.4-10.2); Carbon Dioxide 35 mmol/L (22-29); Chloride 97 mmol/L (96-108); Creatinine Clr Calc Pharmacy 123.4; Estimated Glomerular Filt Rate > 60; Glucose Random 205 mg/dL (60-115); Magnesium 1.8 mg/dL (1.6-2.6); Phosphorus 4.4 mg/dL (2.7-4.5); Potassium 3.9 mmol/l (3.3-5.1); Sodium 140 mmol/L (135-145)
[2020-04-12 07:30] LABS: SLIDE REVIEW VERIFIED
[2020-04-12 07:52] LABS: Glucose, Whole Blood 203 mg/dL (60-115)
[2020-04-12] MEDS: Sacubitril/Valsartan 24/26 1 TAB TABLET PO (08:44)
[2020-04-12] MEDS: Pregabalin 50 MG CAPSULE PO (08:44)
[2020-04-12] MEDS: Furosemide 40 MG TABLET PO (08:45)
[2020-04-12] MEDS: metOLazone 2.5 MG TABLET PO (08:45)
[2020-04-12] MEDS: cloNIDine HCL 0.1 MG TABLET PO ×2 (08:45→20:52)
[2020-04-12] MEDS: Aspirin Enteric Coated 81 MG TABLET.DR PO (08:45)
[2020-04-12] MEDS: Spironolactone 25 MG TABLET PO (08:45)
[2020-04-12] MEDS: Cholecalciferol (Vitamin D3) 25 MCG TABLET PO (08:46)
[2020-04-12] MEDS: Insulin Lispro 100 UNIT/ML 3 ML VIAL SUBCUT ×4 (08:46→20:52)
[2020-04-12] MEDS: Dicyclomine HCl 10 MG CAPSULE 20 MG PO ×4 (08:49→23:23)
--- NOTE | 2020-04-12 10:41 | P.PNIM_ITS ---
Subjective Subjective Date of Service: 04/12/20 Interval History: Seen in f/u for heart failure exacerbation in setting of morbid obesity BMI 73. He decompensated on 04/08 with hypercapnia hypercabia, hypoxic respiratory failure and was transfered to ICU where he required aggresive diuresisis and > 30 ib and has been on bipap and overall seem to be doing much better. Gen: no fever Resp: less sob, no cough CV: no chest, marked leg LUNA still GI: No n/v, no abd pain Neuro: No confusion Physical Exam Vital Signs: Vital Signs: Last Vital Signs Temp 97.0 F 04/12/20 08:00 Pulse 76 04/12/20 08:00 Resp 16 04/12/20 08:32 BP 154/68 H 04/12/20 08:00 Pulse Ox 96 04/12/20 08:00 Body Mass Index 66.5 Const: Other: Constitutional Awake and Alert, Neck Supple, hard to tell if there is JVD Cardiovascular RRR, S1 S2, No S3 S4, 3+ pedal edema Respiratory Lungs diminish breath sounds Gastrointestinal Non tender, Non-distended Skin No rash, right BKA Neurological Alert & oriented x3 Psychological Appropriate affect Objective Data Current Medications Generic Name Dose Route Start Last Admin Trade Name Freq PRN Reason Stop Dose Admin Acetaminophen 650 mg 04/06/20 23:07 Acetaminophen 325 Mg Tablet PO Q6H PRN Pain, Mild (Pain Scale 1-3) Aspirin 81 mg 04/07/20 09:00 04/12/20 08:45 Aspirin Enteric Coated 81 Mg Tablet.Dr PO 81 mg DAILY REGGIE Administration Calcium Carbonate 500 mg 04/07/20 09:00 04/12/20 08:45 Calcium Carbonate 500 Mg Tablet PO 500 mg DAILY REGGIE Administration Clonidine HCl 0.1 mg 04/06/20 23:07 04/12/20 08:45 Clonidine Hcl 0.1 Mg Tablet PO 0.1 mg BID REGGIE Administration Protocol Cyclobenzaprine HCl 5 mg 04/06/20 23:07 04/12/20 03:31 Cyclobenzaprine Hcl 5 Mg Tablet PO 5 mg TID PRN Administration Pain Dicyclomine HCl 20 mg 04/06/20 23:07 04/12/20 08:49 Dicyclomine Hcl 10 Mg Capsule PO 20 mg QID REGGIE Administration Docusate Sodium 100 mg 12/25/20 23:07 Docusate Sodium 100 Mg Capsule PO DAILY PRN Constipation Furosemide 40 mg 04/10/20 13:30 04/12/20 08:45 Furosemide 40 Mg Tablet PO 40 mg DAILY REGGIE Administration Protocol Heparin Sodium (Porcine) 5,000 unit 04/07/20 00:00 04/12/20 08:46 Heparin Sodium,Porcine 5,000 Unit/Ml Vial SUBCUT 5,000 unit Q8H REGGIE Administration Insulin Human Lispro 0 unit 04/07/20 07:30 04/12/20 08:46 Insulin Lispro 100 Unit/Ml 3 Ml Vial SUBCUT 4 unit QIDACHS REGGIE Administration Protocol Levothyroxine Sodium 37.5 mcg 04/07/20 06:30 04/12/20 05:57 Levothyroxine Sodium 75 Mcg Tablet PO 37.5 mcg DAILY@0630 REGGIE Administration Melatonin 6 mg 04/06/20 23:07 04/11/20 20:34 Melatonin 3 Mg Tablet PO 6 mg BEDTIME PRN Administration Sleep Metolazone 2.5 mg 04/11/20 09:00 04/12/20 08:45 Metolazone 2.5 Mg Tablet PO 2.5 mg DAILY REGGIE Administration Morphine Sulfate 15 mg 04/09/20 23:30 04/12/20 08:45 Morphine Sulfate Er 15 Mg Tablet.Er PO 15 mg Q8H REGGIE Administration Omeprazole 20 mg 04/06/20 23:07 04/11/20 16:03 Omeprazole 20 Mg Capsule.Dr PO 20 mg BID@0630,1630 REGGIE Administration Ondansetron HCl 4 mg 04/06/20 23:07 Ondansetron Hcl 4 Mg/2 Ml Vial IVPUSH Q8H PRN Nausea and Vomiting Pharmacy Consult 1 each 04/06/20 20:04 Consult Rx Perform Med Rec MISCELLANE ONCE PRN Consult order Pravastatin Sodium 10 mg 04/06/20 23:07 04/11/20 20:25 Pravastatin Sodium 10 Mg Tablet PO 10 mg BEDTIME REGGIE Administration Pregabalin 50 mg 04/09/20 09:00 04/12/20 08:44 Pregabalin 50 Mg Capsule PO 50 mg DAILY REGGIE Administration Sacubitril/Valsartan 1 tab 04/11/20 09:00 04/12/20 08:44 Sacubitril/Valsartan 1 Tab Tablet PO 1 tab BID REGGIE Administration Protocol Sodium Chloride 3 ml 04/07/20 00:00 04/12/20 08:46 0.9 % Sodium Chloride Flush 3 Ml Syringe IVFLUSH 3 ml QSHIFT REGGIE Administration Spironolactone 25 mg 04/10/20 13:30 04/12/20 08:45 Spironolactone 25 Mg Tablet PO 25 mg DAILY REGGIE Administration Protocol Topiramate 100 mg 04/06/20 23:07 04/11/20 20:25 Topiramate 100 Mg Tablet PO 100 mg BEDTIME REGGIE Administration Trazodone HCl 50 mg 04/06/20 23:07 04/11/20 20:34 Trazodone Hcl 50 Mg Tablet PO 50 mg BEDTIME PRN Administration Sleep Vitamin D 25 mcg 04/07/20 09:00 04/12/20 08:46 Cholecalciferol (Vitamin D3) 25 Mcg Tablet PO 25 mcg DAILY REGGIE Administration Labs CBC & Chem 7: 04/12/20 05:33 04/12/20 05:33 Assessment and Plan (1) New onset of congestive heart failure: Status: Acute (2) Dyspnea: Status: Acute (3) Diabetes mellitus: Problem details: 15 minute spent on telephone Status: Acute (4) Morbid obesity: Status: Acute (5) Chronic pain: Status: Acute (6) JOSE (acute kidney injury): Status: Acute Assessment and Plan: 49-year-old male super morbi obese BMI 73, DM, chronic right heart heart failure, HTN, chronic pain syndrome here with increasing SOB and totoal body fluid overload/likely right heart failure and JOSE..He decompensated on 04/08 with hypercapnia hypercabia, hypoxic respiratory failure and was transfered to ICU where he required aggresive diuresisis and > 30 ib and has been on bipap and overall seem to be doing much better. Transfer out of ICU on 04/11 #Acute hypoxic hypercarbic respiratoyf failure due to hypOventilation syndrome, and Heart failure. He has significantly improved with management of heart failure and Nasal Bipap use. #Acute heart failure likely right heart failure--He was aggrexively diurese with IV diuertic drip and weight has come down to 35, and cumulative negativ 21 liters documented. Diuretics have been adjusted to oral Lasix 40 daily, aldactone 25 and Meolzone 2.5 mg daily with good effect. Additional has been started on Entresto was added in ICU. Now cardiology is recommending put yolieg jean carlos back on high dose Torsemide and Lisinopril (No Entresto), continue Metolazone and Aldactone. # JOSE likely --Was due to Cardiorenal syndrome and has resolved. #Hematuria--was due to traumatic BI has resolved. # hypertension--continue clonidine, Entresto, metolazone and Aldactone # diabetes - patient reports poorly controlled diabetes -he uses U-500 insulin 175 units BID , but presently on SSI , FBS = 203. Will add some formulary equivalent # chronic pain--He uses buprenorphine (Belbuca) 600 mcg O69H--Zs has been changed to MS jain 15 Q8 #Hypothyroidism--continue levothyroxine #HLD on Pravastatin DVT prophylaxis: Heparin PT eval
--- NOTE | 2020-04-12 10:58 | P.PNCA_ITS ---
Subjective Subjective Date of Service: 04/12/20 Principal diagnosis: Respiratory failure Interval history: He has been moved from ICU to telemetry. He states that he is feeling okay. Review of Systems Review of Systems Yes all other systems are reviewed and are negative Constitutional: Reports weakness Cardiovascular: Reports as per HPI, Reports no additional cardiovascular complaints, Denies cool extremities, Denies painful fingertips, Denies chest pain, Denies chest pain at rest, Denies chest pain with activity, Denies diaphoresis, Denies syncope, Reports pedal edema, Denies lightheadedness, Denies Loss of Consciousness, Denies radiating jaw, neck or arm pain, Reports dyspnea and Reports dyspnea on exertion Respiratory: Reports dyspnea and Reports dyspnea on exertion Reports system reviewed and no additional complaints, except as documented, Denies syncope and Reports weakness Physical Exam Vital Signs: Last Vital Signs Temp 97.0 F 04/12/20 08:00 Pulse 76 04/12/20 08:00 Resp 16 04/12/20 08:32 BP 154/68 H 04/12/20 08:00 Pulse Ox 96 04/12/20 08:00 Body Mass Index 66.5 Const General: cooperative, comfortable and no acute distress Orientation/consciousness: patient oriented x3 [facility] Other: Unremarkable Neck Neck: Yes normal visual inspection Chest Chest palpation & inspection: normal inspection of the chest Resp Auscultation: no crackles, no wheezes and diminished lung sounds Cardio Jugular venous distension: no JVD Palpation: normal PMI Heart sounds: S1 normal heart sound present, S2 normal heart sound present, no gallops, no murmurs and no rubs GI Palpation (GI): Soft to palpation Back/Spine/Pelvis Other: unremarkable Skin General skin exam: no rashes or lesions noted Neuro General: patient oriented x3 Psych Mental Status: mental status grossly normal Results Labs and Meds Result diagrams: 04/12/20 05:33 04/12/20 05:33 Lab results: Laboratory Results - last 24 hr 04/11/20 04/11/20 04/11/20 11:12 11:58 15:00 WBC RBC Hgb Hct MCV MCH MCHC RDW Plt Count MPV Immature Gran % (Auto) Neut % (Auto) Lymph % (Auto) [place] % (Auto) Eos % (Auto) Baso % (Auto) Lymph # (Auto) [place] # (Auto) Eos # (Auto) Baso # (Auto) Abs Immat Gran (auto) Absolute Neuts (auto) Absolute Nucleated RBC Nucleated RBC % (auto) Smear Tech's Comments VBG pH 7.33 7.35 VBG pCO2 77 68 VBG pO2 42 39 VBG HCO3 40 37 VBG O2 Saturation 74.1 71.5 VBG Base Excess 11.7 9.0 Sodium Potassium Chloride Carbon Dioxide Anion Gap BUN Creatinine Estim Creat Clear Calc Estimated GFR POC Glucose 241 H Random Glucose Calcium Phosphorus Magnesium 04/11/20 04/11/20 04/12/20 16:13 19:52 05:33 WBC 2.7 L RBC 3.44 L Hgb 10.4 L Hct 34.2 L MCV 99.4 H MCH 30.2 MCHC 30.4 L RDW 13.5 Plt Count 98 L MPV 9.7 Immature Gran % (Auto) 0.4 Neut % (Auto) 73.8 H Lymph % (Auto) 12.0 L [place] % (Auto) 10.9 Eos % (Auto) 2.9 Baso % (Auto) 0.0 Lymph # (Auto) 0.3 L [place] # (Auto) 0.3 Eos # (Auto) 0.1 Baso # (Auto) 0.0 Abs Immat Gran (auto) 0.01 Absolute Neuts (auto) 2.0 Absolute Nucleated RBC 0.000 Nucleated RBC % (auto) 0.0 Smear Tech's Comments VERIFIED VBG pH VBG pCO2 VBG pO2 VBG HCO3 VBG O2 Saturation VBG Base Excess Sodium Potassium Chloride Carbon Dioxide Anion Gap BUN Creatinine Estim Creat Clear Calc Estimated GFR POC Glucose 215 H 245 H Random Glucose Calcium Phosphorus Magnesium 04/12/20 04/12/20 05:33 07:36 WBC RBC Hgb Hct MCV MCH MCHC RDW Plt Count MPV Immature Gran % (Auto) Neut % (Auto) Lymph % (Auto) [place] % (Auto) Eos % (Auto) Baso % (Auto) Lymph # (Auto) [place] # (Auto) Eos # (Auto) Baso # (Auto) Abs Immat Gran (auto) Absolute Neuts (auto) Absolute Nucleated RBC Nucleated RBC % (auto) Smear Tech's Comments VBG pH VBG pCO2 VBG pO2 VBG HCO3 VBG O2 Saturation VBG Base Excess Sodium 140 Potassium 3.9 Chloride 97 Carbon Dioxide 35 H Anion Gap 12 BUN 19 H Creatinine 1.22 Estim Creat Clear Calc 123.4 Estimated GFR > 60 POC Glucose 203 H Random Glucose 205 H Calcium 8.6 Phosphorus 4.4 Magnesium 1.8 Progress Note: A&P Assessment and plan (1) Acute on chronic right heart failure: Status: Acute (2) Acute respiratory failure: Status: Acute (3) Morbid obesity: Status: Acute Assessment and Plan: Suspected obesity related hypo-ventilation syndrome and right heart failure. Off Lasix drip. He is on oral diuretics and will need to optimize dosing. He will need CPAP setup upon discharge. Other medications will also need to be optimized. Fall Risk Details Current Medications: Current Medications Generic Name Dose Route Start Last Admin Trade Name Freq PRN Reason Stop Dose Admin Acetaminophen 650 mg 04/06/20 23:07 Acetaminophen 325 Mg Tablet PO Q6H PRN Pain, Mild (Pain Scale 1-3) Aspirin 81 mg 04/07/20 09:00 04/12/20 08:45 Aspirin Enteric Coated 81 Mg Tablet.Dr PO 81 mg DAILY REGGIE Administration Calcium Carbonate 500 mg 04/07/20 09:00 04/12/20 08:45 Calcium Carbonate 500 Mg Tablet PO 500 mg DAILY REGGIE Administration Clonidine HCl 0.1 mg 04/06/20 23:07 04/12/20 08:45 Clonidine Hcl 0.1 Mg Tablet PO 0.1 mg BID REGGIE Administration Protocol Cyclobenzaprine HCl 5 mg 04/06/20 23:07 04/12/20 03:31 Cyclobenzaprine Hcl 5 Mg Tablet PO 5 mg TID PRN Administration Pain Dicyclomine HCl 20 mg 04/06/20 23:07 04/12/20 08:49 Dicyclomine Hcl 10 Mg Capsule PO 20 mg QID REGGIE Administration Docusate Sodium 100 mg 04/06/20 23:07 Docusate Sodium 100 Mg Capsule PO DAILY PRN Constipation Furosemide 40 mg 04/10/20 13:30 04/12/20 08:45 Furosemide 40 Mg Tablet PO 40 mg DAILY REGGIE Administration Protocol Heparin Sodium (Porcine) 5,000 unit 04/07/20 00:00 04/12/20 08:46 Heparin Sodium,Porcine 5,000 Unit/Ml Vial SUBCUT 5,000 unit Q8H REGGIE Administration Insulin Human Lispro 0 unit 04/07/20 07:30 04/12/20 08:46 Insulin Lispro 100 Unit/Ml 3 Ml Vial SUBCUT 4 unit QIDACHS REGGIE Administration Protocol Levothyroxine Sodium 37.5 mcg 04/07/20 06:30 04/12/20 05:57 Levothyroxine Sodium 75 Mcg Tablet PO 37.5 mcg DAILY@0630 REGGIE Administration Melatonin 6 mg 04/06/20 23:07 04/11/20 20:34 Melatonin 3 Mg Tablet PO 6 mg BEDTIME PRN Administration Sleep Metolazone 2.5 mg 04/11/20 09:00 04/12/20 08:45 Metolazone 2.5 Mg Tablet PO 2.5 mg DAILY REGGIE Administration Morphine Sulfate 15 mg 04/09/20 23:30 04/12/20 08:45 Morphine Sulfate Er 15 Mg Tablet.Er PO 15 mg Q8H REGGIE Administration Omeprazole 20 mg 04/06/20 23:07 04/11/20 16:03 Omeprazole 20 Mg Capsule.Dr PO 20 mg BID@0630,1630 REGGIE Administration Ondansetron HCl 4 mg 04/06/20 23:07 Ondansetron Hcl 4 Mg/2 Ml Vial IVPUSH Q8H PRN Nausea and Vomiting Pharmacy Consult 1 each 04/06/20 20:04 Consult Rx Perform Med Rec MISCELLANE ONCE PRN Consult order Pravastatin Sodium 10 mg 04/06/20 23:07 04/11/20 20:25 Pravastatin Sodium 10 Mg Tablet PO 10 mg BEDTIME REGGIE Administration Pregabalin 50 mg 04/09/20 09:00 04/12/20 08:44 Pregabalin 50 Mg Capsule PO 50 mg DAILY REGGIE Administration Sacubitril/Valsartan 1 tab 04/11/20 09:00 04/12/20 08:44 Sacubitril/Valsartan 1 Tab Tablet PO 1 tab BID REGGIE Administration Protocol Sodium Chloride 3 ml 04/07/20 00:00 04/12/20 08:46 0.9 % Sodium Chloride Flush 3 Ml Syringe IVFLUSH 3 ml QSHIFT REGGIE Administration Spironolactone 25 mg 04/10/20 13:30 04/12/20 08:45 Spironolactone 25 Mg Tablet PO 25 mg DAILY REGGIE Administration Protocol Topiramate 100 mg 04/06/20 23:07 04/11/20 20:25 Topiramate 100 Mg Tablet PO 100 mg BEDTIME REGGIE Administration Trazodone HCl 50 mg 04/06/20 23:07 04/11/20 20:34 Trazodone Hcl 50 Mg Tablet PO 50 mg BEDTIME PRN Administration Sleep Vitamin D 25 mcg 04/07/20 09:00 04/12/20 08:46 Cholecalciferol (Vitamin D3) 25 Mcg Tablet PO 25 mcg DAILY REGGIE Administration Time Spent With Patient Time: Total time spent is greater than 50% in coordination of care (as documented) at patient's floor/unit and/or counseling patient: Time with patient: less than 15 minutes
[2020-04-12 11:25] LABS: Glucose, Whole Blood 247 mg/dL (60-115)
--- NOTE | 2020-04-12 11:39 | CONS_ITS ---
DATE OF SERVICE: 04/12/2020 CHIEF COMPLAINT: Worsening shortness of breath. HISTORY OF PRESENT ILLNESS: Mr. Cortez is a 49-year-old gentleman, morbidly obese with a known history of obstructive sleep apnea, chronic pain, diabetes, below-knee amputation, who apparently was in his usual state of health until for the last month he has had worsening shortness of breath along with PND and orthopnea. He does have a CPAP at home, but he has not been using it. The patient reports about 100-pound weight gain since November. He was admitted to the [facility] ED and subsequently transferred to the unit. He was diuresed aggressively in the unit and was placed on BiPAP. His initial blood gases demonstrated a pH 7.16 with a pCO2 of 89. His condition did improve. The last ABG with a pH 7.33, pCO2 of 77, and a pO2 of 42. The patient has been using the BiPAP now at nighttime. He feels much better on it. He has subsequently failed CPAP as it was not functioning for him as well. The patient was now in the floor. He denies any complaints. REVIEW OF SYSTEMS: Ten systems reviewed. Complains of constitutional symptoms as stated above. Complains of the respiratory symptoms as stated above. Denies any cardiac symptoms. Denies any GI or symptoms. Complains of musculoskeletal discomfort and weakness. Denies any rashes. The rest of the 10-organ system is negative. PAST MEDICAL HISTORY: Chronic pain, hypertension, diabetes, hyperlipidemia, morbid obesity, GONZALEZ on CPAP. PAST SURGICAL HISTORY: Below-knee amputation on the right, hand surgery, kidney stone surgery. FAMILY HISTORY: Positive for diabetes and cancer. SOCIAL HISTORY: Lives at home. He is wheelchair bound. Denies any alcohol, drugs, or tobacco. ALLERGIES: PLEASE REFER TO THE MAR INCLUDING PENICILLIN, UNCLEAR THE REACTION. CURRENT MEDICATIONS: Please refer to his MAR, which includes acetaminophen, clonidine, Flexeril, melatonin, omeprazole, trazodone, heparin subcu, insulins, aspirin, morphine, Aldactone, metolazone, Entresto. PHYSICAL EXAMINATION: VITAL SIGNS: Stable. Saturating 96% on his current high-flow unit, pleasant gentleman, no acute distress. HEENT: Pupils equal and reactive to light. Oropharynx clear. NECK: Supple. LUNGS: Diminished. CARDIAC: Regular rhythm and regular rate. He is obese. EXTREMITIES: No clubbing, cyanosis, or some lower extremity edema noted. Denies any rashes. No rashes found. NEURO: Otherwise, his neuro exam is grossly intact. LABORATORY DATA: His white count is too low 2.7, but has been running low, hemoglobin 10.4, platelet count 98, so just pancytopenia. His D-dimer was initially elevated of 740 back in 04/06, and his blood gases again as stated above. His last blood gas from 04/11 with a pH 7.35, pCO2 of 68, pO2 of 39, but I believe that the venous gas and chemistry with a BUN and creatinine of 19/1.22. Blood sugars are still elevated. Serology: COVID testing negative. IMAGING STUDIES: He did have an x-ray demonstrating mild vascular congestion. No additional imaging noted. ASSESSMENT: Mr. Cortez is a 49-year-old gentleman with morbid obesity, obstructive sleep apnea, presenting with acute hypoxic and hypercarbic respiratory failure, requiring ICU level of care, aggressive diuresis, now doing better, but still on high-flow and using CPAP at night time. IMPRESSION: 1. Acute on chronic hypercarbic and hypoxic respiratory failure, likely a combination including his obesity hypoventilation syndrome and his morbid obesity along with his volume overload status, opiate use, and complex sleep apnea appears to be better, although lot of oxygen. His D-dimer was elevated. Would be reasonable to do a perfusion study to rule out blood clots. The patient is not getting any anticoagulation at this time. 2. Obstructive sleep apnea. The patient has failed CPAP, needs BiPAP. 3. Volume overload status, likely from right heart failure. The patient did undergo an echocardiogram on 04/07, demonstrating some degree of LVH with diastolic dysfunction, but a very technically study in the right side could not be appreciated. RECOMMENDATIONS: 1. Continue with diuresis. 2. We will try to wean him off the high-flow to nasal cannula. 3. We will discuss with DME about failing CPAP and try to get him a BiPAP. Otherwise, he will need another titration study and that will have to be done as an outpatient. 4. Perfusion study to rule out blood clots. Further recommendation will be based on forthcoming data. MD ANA Villegas/MODL / [id number]
[2020-04-12] MEDS: lisinopriL 10 MG TABLET PO (12:00)
--- NOTE | 2020-04-12 15:32 | P.PNNP_ITS ---
Subjective Subjective Date of Service: 04/12/20 Principal diagnosis: Respiratory failure Interval history: Events noted Labs reviewed Physical Exam Vital Signs: Vital Signs: Last Vital Signs Temp 98.5 F 04/12/20 15:23 Pulse 78 04/12/20 15:23 Resp 16 04/12/20 15:25 BP 157/77 H 04/12/20 15:23 Pulse Ox 95 04/12/20 15:23 Body Mass Index 66.5 Const: General: cooperative Orientation/consciousness: oriented to person Neck: Neck: Yes supple Resp: Effort & Inspection: decreased respiratory effort Cardio: Heart sounds: no rubs GI: Auscultation: normoactive bowel sounds Skin: General skin exam: no rashes or lesions noted Neuro: General: oriented to person Motor exam (neuro): no asterixis Objective Data Labs CBC & Chem 7: 04/12/20 05:33 04/12/20 05:33 Labs: Laboratory Results - last 24 hr 04/11/20 04/11/20 04/12/20 16:13 19:52 05:33 WBC 2.7 L RBC 3.44 L Hgb 10.4 L Hct 34.2 L MCV 99.4 H MCH 30.2 MCHC 30.4 L RDW 13.5 Plt Count 98 L MPV 9.7 Immature Gran % (Auto) 0.4 Neut % (Auto) 73.8 H Lymph % (Auto) 12.0 L [place] % (Auto) 10.9 Eos % (Auto) 2.9 Baso % (Auto) 0.0 Lymph # (Auto) 0.3 L [place] # (Auto) 0.3 Eos # (Auto) 0.1 Baso # (Auto) 0.0 Abs Immat Gran (auto) 0.01 Absolute Neuts (auto) 2.0 Absolute Nucleated RBC 0.000 Nucleated RBC % (auto) 0.0 Smear Tech's Comments VERIFIED Sodium Potassium Chloride Carbon Dioxide Anion Gap BUN Creatinine Estim Creat Clear Calc Estimated GFR POC Glucose 215 H 245 H Random Glucose Calcium Phosphorus Magnesium 04/12/20 04/12/20 04/12/20 05:33 07:36 11:16 WBC RBC Hgb Hct MCV MCH MCHC RDW Plt Count MPV Immature Gran % (Auto) Neut % (Auto) Lymph % (Auto) [place] % (Auto) Eos % (Auto) Baso % (Auto) Lymph # (Auto) [place] # (Auto) Eos # (Auto) Baso # (Auto) Abs Immat Gran (auto) Absolute Neuts (auto) Absolute Nucleated RBC Nucleated RBC % (auto) Smear Tech's Comments Sodium 140 Potassium 3.9 Chloride 97 Carbon Dioxide 35 H Anion Gap 12 BUN 19 H Creatinine 1.22 Estim Creat Clear Calc 123.4 Estimated GFR > 60 POC Glucose 203 H 247 H Random Glucose 205 H Calcium 8.6 Phosphorus 4.4 Magnesium 1.8 Assessment & Plan Assessment and plan (1) JOSE (acute kidney injury): Problem details: Renal Function close to baseline Alkalosis - being corrected with Diamox Co2 is down. Keep Diamox and watch Co2 and K Status: Acute Time Spent With Patient Time: Total time spent is greater than 50% in coordination of care (as documented) at patient's floor/unit and/or counseling patient:
[2020-04-12 16:26] LABS: Glucose, Whole Blood 225 mg/dL (60-115)
[2020-04-12] MEDS: Omeprazole 20 MG CAPSULE.DR PO (16:26)
--- NOTE | 2020-04-12 18:37 | PC.NURSE ---
pt alert and oriented. Can be easily agitated with care and irritated with sizewise bed Repoed pt q2 but pt doesnt want to lay on left side as tray table isnt on that side with his belongings - offered to move it- pt refused at this time; only wants supine or to lay on right side. Skin boss: left finger small wound- put wound gel and large bandaid on scrotum pink - states can be irritated - barrier cream and interdry placed left lower leg very edematous and very tight at this time. R BKA other skin in tact pt remains on hiflow at this time and CPAP at night- lungs dim
[2020-04-12 20:25] LABS: Glucose, Whole Blood 207 mg/dL (60-115)
[2020-04-12] MEDS: Topiramate 100 MG TABLET PO (20:52)
[2020-04-12] MEDS: Pravastatin Sodium 10 MG TABLET PO (20:52)
[2020-04-12] MEDS: traZODone HCL 50 MG TABLET PO (23:32)
[2020-04-12] MEDS: Melatonin 3 MG TABLET 6 MG PO (23:32)
[2020-04-13] VITALS (13 sets, daily range): BP systolic 120–160; BP diastolic 48–68; PULSE 76–84; RESP 18–20; TEMP 36.5–36.7; O2SAT 91–98; BMI 59.6
[2020-04-13] MEDS: Levothyroxine Sodium 75 MCG TABLET 37.5 MCG PO (06:02)
[2020-04-13] MEDS: Omeprazole 20 MG CAPSULE.DR PO ×2 (06:02→17:08)
[2020-04-13 07:20] LABS: Glucose, Whole Blood 201 mg/dL (60-115)
[2020-04-13 07:52] LABS: Basophils Percent Auto 0.4 % (0-2); Eosinophils Absolute Auto 0.1 X10*3/uL (0.0-0.4); Eosinophils Percent Auto 4.3 % (0-4); Hematocrit 33.8 % (42-52); Hemoglobin 10.1 g/dl (14.0-18.0); Lymphocytes Absolute Auto 0.4 X10*3/uL (1.2-4.9); Lymphocytes Percent Auto 15.5 % (20-40); MANUAL DIFF FLAG SCAN; Mean Corpuscular HGB Conc 29.9 g/dl (31.0-36.0); Mean Corpuscular Hemoglobin 29.8 pg (27.0-33.0); Mean Corpuscular Volume 99.7 fL (80-98); Monocytes Absolute Auto 0.2 X10*3/uL (0.1-1.2); Monocytes Percent Auto 9.1 % (2-11); Neutrophils Absolute Auto 1.6 X10*3/uL (2.0-8.3); Neutrophils Percent Auto 70.7 % (45-73); Red Blood Count 3.39 X10*6/uL (4.60-5.80); Red Cell Distribution Width 13.5 % (11.0-16.0); SCAN SMEAR FLAG 1
[2020-04-13 07:53] LABS: Platelet Count 91 X10*3/uL (160-400); White Blood Count 2.3 X10*3/uL (4.8-10.8)
[2020-04-13] MEDS: Heparin Sodium,Porcine 5,000 UNIT/ML VIAL 5000 UNIT SUBCUT ×3 (08:06→23:11)
[2020-04-13] MEDS: Morphine Sulfate ER 15 MG TABLET.ER PO ×3 (08:06→23:10)
[2020-04-13] MEDS: Torsemide 20 MG TABLET 80 MG PO (08:07)
[2020-04-13] MEDS: Cholecalciferol (Vitamin D3) 25 MCG TABLET PO (08:07)
[2020-04-13] MEDS: Aspirin Enteric Coated 81 MG TABLET.DR PO (08:07)
[2020-04-13] MEDS: Dicyclomine HCl 10 MG CAPSULE 20 MG PO ×4 (08:07→21:50)
[2020-04-13] MEDS: lisinopriL 10 MG TABLET PO (08:07)
[2020-04-13] MEDS: Pregabalin 50 MG CAPSULE PO (08:08)
[2020-04-13] MEDS: Insulin Lispro 100 UNIT/ML 3 ML VIAL SUBCUT ×4 (08:08→21:23)
[2020-04-13] MEDS: 0.9 % Sodium Chloride Flush 3 ML SYRINGE IVFLUSH ×3 (08:08→23:11)
[2020-04-13] MEDS: Spironolactone 25 MG TABLET PO (08:08)
[2020-04-13] MEDS: cloNIDine HCL 0.1 MG TABLET PO ×2 (08:08→21:50)
[2020-04-13 08:12] LABS: Anion Gap 11 (12-20); Blood Urea Nitrogen 23 mg/dL (9-16); Calcium 8.7 mg/dL (8.4-10.2); Carbon Dioxide 38 mmol/L (22-29); Chloride 95 mmol/L (96-108); Creatinine Clr Calc Pharmacy 110.7; Estimated Glomerular Filt Rate 55; Glucose Random 214 mg/dL (60-115); Magnesium 1.8 mg/dL (1.6-2.6); Phosphorus 4.9 mg/dL (2.7-4.5); Potassium 3.9 mmol/l (3.3-5.1); Sodium 140 mmol/L (135-145)
[2020-04-13 08:22] LABS: SLIDE REVIEW VERIFIED
--- NOTE | 2020-04-13 08:28 | HO.PM.IMPN ---
Subjective Subjective Date of Service: 04/13/20 Interval History: Seen in f/u for heart failure exacerbation in setting of morbid obesity BMI 73. He decompensated on 04/08 with hypercapnia hypercabia, hypoxic respiratory failure and was transfered to ICU where he required aggresive diuresisis and > 30 ib and has been on bipap and overall seem to be doing much better. No new issues overnight. Gen: no fever Resp: less sob, no cough CV: no chest, marked leg LUNA still GI: No n/v, no abd pain Neuro: No confusion Physical Exam Vital Signs: Vital Signs: Last Vital Signs Temp 98 F 04/13/20 07:04 Pulse 77 04/13/20 07:04 Resp 18 04/13/20 07:53 BP 120/58 L 04/13/20 08:08 Pulse Ox 98 04/13/20 07:04 Body Mass Index 66.5 Const: Other: Constitutional Awake and Alert, Neck Supple, hard to tell if there is JVD Cardiovascular RRR, S1 S2, No S3 S4, 3+ pedal edema Respiratory Lungs diminish breath sounds Gastrointestinal Non tender, Non-distended Skin No rash, right BKA Neurological Alert & oriented x3 Psychological Appropriate affect Objective Data Current Medications Generic Name Dose Route Start Last Admin Trade Name Freq PRN Reason Stop Dose Admin Acetaminophen 650 mg 04/06/20 23:07 Acetaminophen 325 Mg Tablet PO Q6H PRN Pain, Mild (Pain Scale 1-3) Aspirin 81 mg 04/07/20 09:00 04/13/20 08:07 Aspirin Enteric Coated 81 Mg Tablet. PO 81 mg DAILY REGGIE Administration Calcium Carbonate 500 mg 04/07/20 09:00 04/13/20 08:08 Calcium Carbonate 500 Mg Tablet PO 500 mg DAILY REGGIE Administration Clonidine HCl 0.1 mg 04/06/20 23:07 04/13/20 08:08 Clonidine Hcl 0.1 Mg Tablet PO 0.1 mg BID REGGIE Administration Protocol Cyclobenzaprine HCl 5 mg 04/06/20 23:07 04/12/20 23:23 Cyclobenzaprine Hcl 5 Mg Tablet PO 5 mg TID PRN Administration Pain Dicyclomine HCl 20 mg 04/06/20 23:07 04/13/20 08:07 Dicyclomine Hcl 10 Mg Capsule PO 20 mg QID REGGIE Administration Docusate Sodium 100 mg 04/06/20 23:07 Docusate Sodium 100 Mg Capsule PO DAILY PRN Constipation Heparin Sodium (Porcine) 5,000 unit 04/07/20 00:00 04/13/20 08:06 Heparin Sodium,Porcine 5,000 Unit/Ml Vial SUBCUT 5,000 unit Q8H REGGIE Administration Insulin Human Lispro 0 unit 04/07/20 07:30 04/13/20 08:08 Insulin Lispro 100 Unit/Ml 3 Ml Vial SUBCUT 4 unit QIDACHS [facility] Administration Protocol Levothyroxine Sodium 37.5 mcg 04/07/20 06:30 04/13/20 06:02 Levothyroxine Sodium 75 Mcg Tablet PO 37.5 mcg DAILY@0630 REGGIE Administration Lisinopril 10 mg 04/12/20 11:04 04/13/20 08:07 Lisinopril 10 Mg Tablet PO 10 mg DAILY REGGIE Administration Protocol Melatonin 6 mg 04/06/20 23:07 04/12/20 23:32 Melatonin 3 Mg Tablet PO 6 mg BEDTIME PRN Administration Sleep Morphine Sulfate 15 mg 04/09/20 23:30 04/13/20 08:06 Morphine Sulfate Er 15 Mg Tablet.Er PO 15 mg Q8H REGGIE Administration Omeprazole 20 mg 04/06/20 23:07 04/13/20 06:02 Omeprazole 20 Mg Capsule.Dr PO 20 mg BID@0630,1630 [facility] Administration Ondansetron HCl 4 mg 04/06/20 23:07 Ondansetron Hcl 4 Mg/2 Ml Vial IVPUSH Q8H PRN Nausea and Vomiting Pharmacy Consult 1 each 04/06/20 20:04 Consult Rx Perform Med Rec MISCELLANE ONCE PRN Consult order Pravastatin Sodium 10 mg 04/06/20 23:07 04/12/20 20:52 Pravastatin Sodium 10 Mg Tablet PO 10 mg BEDTIME REGGIE Administration Pregabalin 50 mg 04/09/20 09:00 04/13/20 08:08 Pregabalin 50 Mg Capsule PO 50 mg DAILY REGGIE Administration Sodium Chloride 3 ml 04/07/20 00:00 04/13/20 08:08 0.9 % Sodium Chloride Flush 3 Ml Syringe IVFLUSH 3 ml QSHIFT REGGIE Administration Spironolactone 25 mg 04/10/20 13:30 04/13/20 08:08 Spironolactone 25 Mg Tablet PO 25 mg DAILY REGGIE Administration Protocol Topiramate 100 mg 04/06/20 23:07 04/12/20 20:52 Topiramate 100 Mg Tablet PO 100 mg BEDTIME REGGIE Administration Torsemide 80 mg 04/13/20 09:00 04/13/20 08:07 Torsemide 20 Mg Tablet PO 80 mg DAILY REGGIE Administration Protocol Trazodone HCl 50 mg 04/06/20 23:07 04/12/20 23:32 Trazodone Hcl 50 Mg Tablet PO 50 mg BEDTIME PRN Administration Sleep Vitamin D 25 mcg 04/07/20 09:00 04/13/20 08:07 Cholecalciferol (Vitamin D3) 25 Mcg Tablet PO 25 mcg DAILY REGGIE Administration Labs CBC & Chem 7: 04/13/20 06:08 04/13/20 06:08 Assessment and Plan (1) JOSE (acute kidney injury): Status: Acute Assessment and Plan: 49-year-old male super morbi obese BMI 73, DM, chronic right heart heart failure, HTN, chronic pain syndrome here with increasing SOB and totoal body fluid overload/likely right heart failure and JOSE..He decompensated on 04/08 with hypercapnia hypercabia, hypoxic respiratory failure and was transfered to ICU where he required aggresive diuresisis and > 30 ib and has been on bipap and overall seem to be doing much better. Transfer out of ICU on 04/11 #Acute hypoxic hypercarbic respiratoyf failure due to hypOventilation syndrome, and Heart failure. He has significantly improved with management of heart failure and Nasal Bipap use. #Acute heart failure likely right heart failure--He was aggrexively diurese with IV diuertic drip and weight has come down to 35, and cumulative negativ 21 liters documented. Diuretics have been adjusted to oral Lasix 40 daily, aldactone 25 and Meolzone 2.5 mg daily with good effect. Additional has been started on Entresto was added in ICU. Now cardiology is recommending puttng hime back on high dose Torsemide at higher dose than home dose and Lisinopril (No Entresto), and Aldactone. No Metolazone # JOSE likely --Was due to Cardiorenal syndrome and has resolved. CR at baseline #Hematuria--was due to traumatic BI has resolved. # hypertension--continue clonidine, Lisiniopril, and Aldactone # diabetes - patient reports poorly controlled diabetes -he uses U-500 insulin 175 units BID , but presently on SSI , FBS=2-1 -Add Lantus 8 today # chronic pain--He uses buprenorphine (Belbuca) 600 mcg V15O--Cp has been changed to MS jain 15 Q8 #Hypothyroidism--continue levothyroxine #HLD on Pravastatin #Hypoventilation--CPAP/BiPAP dependent-He claims machine at home is broken, Pulmonary and Respiratory to assist in setting him for new machine. DVT prophylaxis: Heparin PT eval
[2020-04-13 11:35] LABS: Glucose, Whole Blood 247 mg/dL (60-115)
[2020-04-13] MEDS: Cyclobenzaprine HCl 5 MG TABLET PO ×2 (15:21→21:51)
--- NOTE | 2020-04-13 15:46 | PM.PNNEP ---
Subjective Subjective Date of Service: 04/14/20 Principal diagnosis: Respiratory failure Interval history: Events noted Physical Exam Vital Signs: Vital Signs: Last Vital Signs Temp 97.9 F 04/13/20 11:25 Pulse 76 04/13/20 11:25 Resp 18 04/13/20 11:40 BP 157/68 H 04/13/20 11:25 Pulse Ox 98 04/13/20 11:25 Body Mass Index 59.6 Const: General: cooperative Orientation/consciousness: oriented to person Neck: Neck: Yes supple Resp: Effort & Inspection: decreased respiratory effort Cardio: Heart sounds: no rubs GI: Auscultation: normoactive bowel sounds Skin: General skin exam: no rashes or lesions noted Neuro: General: oriented to person Motor exam (neuro): no asterixis Objective Data Labs CBC & Chem 7: 04/14/20 05:56 04/14/20 05:56 Labs: Laboratory Results - last 24 hr 04/12/20 04/12/20 04/13/20 16:19 20:22 06:08 WBC 2.3 L RBC 3.39 L Hgb 10.1 L Hct 33.8 L MCV 99.7 H MCH 29.8 MCHC 29.9 L RDW 13.5 Plt Count 91 L MPV 10.0 Immature Gran % (Auto) 0.0 Neut % (Auto) 70.7 Lymph % (Auto) 15.5 L [place] % (Auto) 9.1 Eos % (Auto) 4.3 H Baso % (Auto) 0.4 Lymph # (Auto) 0.4 L [place] # (Auto) 0.2 Eos # (Auto) 0.1 Baso # (Auto) 0.0 Abs Immat Gran (auto) 0.00 Absolute Neuts (auto) 1.6 L Absolute Nucleated RBC 0.000 Nucleated RBC % (auto) 0.0 Smear Tech's Comments VERIFIED Sodium Potassium Chloride Carbon Dioxide Anion Gap BUN Creatinine Estim Creat Clear Calc Estimated GFR POC Glucose 225 H 207 H Random Glucose Calcium Phosphorus Magnesium 04/13/20 04/13/20 04/13/20 06:08 07:16 11:27 WBC RBC Hgb Hct MCV MCH MCHC RDW Plt Count MPV Immature Gran % (Auto) Neut % (Auto) Lymph % (Auto) [place] % (Auto) Eos % (Auto) Baso % (Auto) Lymph # (Auto) [place] # (Auto) Eos # (Auto) Baso # (Auto) Abs Immat Gran (auto) Absolute Neuts (auto) Absolute Nucleated RBC Nucleated RBC % (auto) Smear Tech's Comments Sodium 140 Potassium 3.9 Chloride 95 L Carbon Dioxide 38 H Anion Gap 11 L BUN 23 H Creatinine 1.36 Estim Creat Clear Calc 110.7 Estimated GFR 55 POC Glucose 201 H 247 H Random Glucose 214 H Calcium 8.7 Phosphorus 4.9 H Magnesium 1.8 Assessment & Plan Assessment and plan (1) JOSE (acute kidney injury): Problem details: Creatinine is trending up Currently on high dose of Torsemide If Cr increases further, may need to lower Torsemide Status: Acute (2) Acute on chronic right heart failure: Status: Acute Time Spent With Patient Time: Total time spent is greater than 50% in coordination of care (as documented) at patient's floor/unit and/or counseling patient:
[2020-04-13 16:31] LABS: Glucose, Whole Blood 254 mg/dL (60-115)
--- NOTE | 2020-04-13 18:20 | PC.NURSE ---
Pt alert, oriented but pt easily agitated and irritable all day. Four staff members tried to get pt oob to bariatic recliner - pt not pulling much of own weight. Immediately pt incontient of large amounts of liquid stool - for safety reason and to clean pt properly had to put pt back in bariatic bed. since that time pt is convinced something is wrong with his bed. Had multiple Rns and slot shift supervisor to come look at bed- can feel air going through bed and it is properly blown up, not alarming. Pt stating no air and his buttocks is hurting badly. Repositioning pt hourly or more for pt comfort 2-3assist - pt never comfortable - using pillows and wedges but pt is adamant his bed is not working. Demanding attitude towards staff about his food/fan/phone while staff is adequately trying to give pt care. Infection disease came to RN station to ask about taking out triple lumen. Pt did not have peripheral access at this time. Multiple RNS and nursing slot shift supervisor attempted peripheral - pt very hard stick; triple lumen remains in place at this time as its only access we currently have on pt. TLC is dressed, clean and flushing great at this time. Pt also seen to have his hiflo not on when he was eating - RN instructed pt importance of keeping o2 on, especially at which level he is on - pt aggravated saying he cant eat while its in. RN reinforced that this is what is also keeping him inpt - then pt put hiflow back in . Telesitter monitor is in place to watch for extra precautions.
[2020-04-13 21:23] LABS: Glucose, Whole Blood 250 mg/dL (60-115)
[2020-04-13] MEDS: traZODone HCL 50 MG TABLET PO (21:50)
[2020-04-13] MEDS: Pravastatin Sodium 10 MG TABLET PO (21:50)
[2020-04-13] MEDS: Topiramate 100 MG TABLET PO (21:50)
[2020-04-13] MEDS: Melatonin 3 MG TABLET 6 MG PO (21:50)
--- NOTE | 2020-04-13 22:44 | PC.NURSE ---
TLC TO R IJ REMOVED. TIP INTACT. NO IMMEDIATE COMPLICATIONS. OCCLUSIVE DRESSING APPLIED, PRESSURE HELD. HOB LOWERED TOLERATED. HR 80s, SpO2 97% ON HFNC 40%/50L. DENIES S/S. PERIPHERAL IV INSERTED, 22 TO R WRIST. PRIMARY RN AWARE.
[2020-04-14] VITALS (16 sets, daily range): BP systolic 108–154; BP diastolic 46–77; PULSE 73–92; RESP 12–22; TEMP 36.2–37.3; O2SAT 91–96
[2020-04-14] MEDS: Levothyroxine Sodium 75 MCG TABLET 37.5 MCG PO (06:26)
[2020-04-14] MEDS: Omeprazole 20 MG CAPSULE.DR PO ×2 (06:26→15:25)
[2020-04-14 07:15] LABS: Basophils Percent Auto 0.4 % (0-2); Eosinophils Absolute Auto 0.1 X10*3/uL (0.0-0.4); Eosinophils Percent Auto 3.9 % (0-4); Hematocrit 34.9 % (42-52); Hemoglobin 10.8 g/dl (14.0-18.0); Imm Gran Abs Auto 0.01 X10*3/uL (0.00-0.03); Imm Gran Pct Auto 0.4 % (0.0-0.4); Lymphocytes Absolute Auto 0.4 X10*3/uL (1.2-4.9); MANUAL DIFF FLAG SCAN; Mean Corpuscular HGB Conc 30.9 g/dl (31.0-36.0); Mean Corpuscular Hemoglobin 30.3 pg (27.0-33.0); Monocytes Absolute Auto 0.3 X10*3/uL (0.1-1.2); Monocytes Percent Auto 9.7 % (2-11); Neutrophils Percent Auto 71.6 % (45-73); Red Blood Count 3.56 X10*6/uL (4.60-5.80); Red Cell Distribution Width 13.4 % (11.0-16.0); SCAN SMEAR FLAG 1; White Blood Count 2.8 X10*3/uL (4.8-10.8)
[2020-04-14 07:34] LABS: Anion Gap 13 (12-20); Blood Urea Nitrogen 31 mg/dL (9-16); Calcium 8.6 mg/dL (8.4-10.2); Carbon Dioxide 37 mmol/L (22-29); Chloride 95 mmol/L (96-108); Creatinine Clr Calc Pharmacy 93.5; Estimated Glomerular Filt Rate 50; Glucose Random 221 mg/dL (60-115); Magnesium 1.5 mg/dL (1.6-2.6); Phosphorus 4.9 mg/dL (2.7-4.5); Sodium 141 mmol/L (135-145)
[2020-04-14 07:54] LABS: Platelet Count 95 X10*3/uL (160-400)
[2020-04-14 07:55] LABS: Glucose, Whole Blood 218 mg/dL (60-115)
[2020-04-14] MEDS: Insulin Lispro 100 UNIT/ML 3 ML VIAL SUBCUT ×4 (08:23→21:16)
[2020-04-14] MEDS: Heparin Sodium,Porcine 5,000 UNIT/ML VIAL 5000 UNIT SUBCUT ×3 (08:24→23:22)
[2020-04-14] MEDS: 0.9 % Sodium Chloride Flush 3 ML SYRINGE IVFLUSH ×3 (08:26→21:16)
[2020-04-14] MEDS: Pregabalin 50 MG CAPSULE PO (08:26)
[2020-04-14] MEDS: Dicyclomine HCl 10 MG CAPSULE 20 MG PO ×4 (08:27→21:14)
[2020-04-14] MEDS: Morphine Sulfate ER 15 MG TABLET.ER PO ×3 (08:27→23:22)
[2020-04-14] MEDS: Torsemide 20 MG TABLET 80 MG PO (08:27)
[2020-04-14] MEDS: Spironolactone 25 MG TABLET PO (08:28)
[2020-04-14] MEDS: cloNIDine HCL 0.1 MG TABLET PO ×2 (08:28→21:14)
[2020-04-14] MEDS: lisinopriL 10 MG TABLET PO (08:29)
[2020-04-14] MEDS: Aspirin Enteric Coated 81 MG TABLET.DR PO (08:29)
[2020-04-14] MEDS: Cholecalciferol (Vitamin D3) 25 MCG TABLET PO (08:29)
[2020-04-14 08:44] LABS: SLIDE REVIEW VERIFIED
[2020-04-14 11:34] LABS: Glucose, Whole Blood 245 mg/dL (60-115)
--- NOTE | 2020-04-14 12:12 | P.PNIM_ITS ---
Subjective Subjective Date of Service: 04/15/20 Interval History: Seen in f/u for heart failure exacerbation in setting of morbid obesity BMI 73. He decompensated on 04/08 with hypercapnia hypercabia, hypoxic respiratory failure and was transfered to ICU where he required aggresive diuresisis and > 30 ib and has been on bipap and overall seem to be doing much better. No new issues overnight and hope to go home soon Gen: no fever Resp: less sob, no cough CV: no chest, marked leg LUNA still GI: No n/v, no abd pain Neuro: No confusion Physical Exam Vital Signs: Vital Signs: Last Vital Signs Temp 98 F 04/14/20 11:17 Pulse 78 04/14/20 11:17 Resp 20 04/14/20 12:04 BP 135/63 04/14/20 11:17 Pulse Ox 96 04/14/20 11:17 Body Mass Index 59.6 Const: Other: Constitutional Awake and Alert, Neck Supple, hard to tell if there is JVD Cardiovascular RRR, S1 S2, No S3 S4, 3+ pedal edema Respiratory Lungs diminish breath sounds Gastrointestinal Non tender, Non-distended Skin No rash, right BKA Neurological Alert & oriented x3 Psychological Appropriate affect Objective Data Current Medications Generic Name Dose Route Start Last Admin Trade Name Freq PRN Reason Stop Dose Admin Acetaminophen 650 mg 04/06/20 23:07 Acetaminophen 325 Mg Tablet PO Q6H PRN Pain, Mild (Pain Scale 1-3) Aspirin 81 mg 04/07/20 09:00 04/14/20 08:29 Aspirin Enteric Coated 81 Mg Tablet. PO 81 mg DAILY REGGIE Administration Calcium Carbonate 500 mg 04/07/20 09:00 04/14/20 08:26 Calcium Carbonate 500 Mg Tablet PO 500 mg DAILY REGGIE Administration Clonidine HCl 0.1 mg 04/06/20 23:07 04/14/20 08:28 Clonidine Hcl 0.1 Mg Tablet PO 0.1 mg BID REGGIE Administration Protocol Cyclobenzaprine HCl 5 mg 04/06/20 23:07 04/13/20 21:51 Cyclobenzaprine Hcl 5 Mg Tablet PO 5 mg TID PRN Administration Pain Dicyclomine HCl 20 mg 04/06/20 23:07 04/14/20 08:27 Dicyclomine Hcl 10 Mg Capsule PO 20 mg QID REGGIE Administration Docusate Sodium 100 mg 04/06/20 23:07 Docusate Sodium 100 Mg Capsule PO DAILY PRN Constipation Heparin Sodium (Porcine) 5,000 unit 04/07/20 00:00 04/14/20 08:24 Heparin Sodium,Porcine 5,000 Unit/Ml Vial SUBCUT 5,000 unit Q8H REGGIE Administration Insulin Human Lispro 0 unit 04/07/20 07:30 04/14/20 08:23 Insulin Lispro 100 Unit/Ml 3 Ml Vial SUBCUT 4 unit QIDACHS [facility] Administration Protocol Levothyroxine Sodium 37.5 mcg 04/07/20 06:30 04/14/20 06:26 Levothyroxine Sodium 75 Mcg Tablet PO 37.5 mcg DAILY@0630 REGGIE Administration Lisinopril 10 mg 04/12/20 11:04 04/14/20 08:29 Lisinopril 10 Mg Tablet PO 10 mg DAILY [facility] Administration Protocol Melatonin 6 mg 04/06/20 23:07 04/13/20 21:50 Melatonin 3 Mg Tablet PO 6 mg BEDTIME PRN Administration Sleep Morphine Sulfate 15 mg 04/09/20 23:30 04/14/20 08:27 Morphine Sulfate Er 15 Mg Tablet.Er PO 15 mg Q8H REGGIE Administration Omeprazole 20 mg 04/06/20 23:07 04/14/20 06:26 Omeprazole 20 Mg Capsule.Dr PO 20 mg BID@0630,1630 [facility] Administration Ondansetron HCl 4 mg 04/06/20 23:07 Ondansetron Hcl 4 Mg/2 Ml Vial IVPUSH Q8H PRN Nausea and Vomiting Pharmacy Consult 1 each 04/06/20 20:04 Consult Rx Perform Med Rec MISCELLANE ONCE PRN Consult order Pravastatin Sodium 10 mg 04/06/20 23:07 04/13/20 21:50 Pravastatin Sodium 10 Mg Tablet PO 10 mg BEDTIME REGGIE Administration Pregabalin 50 mg 04/09/20 09:00 04/14/20 08:26 Pregabalin 50 Mg Capsule PO 50 mg DAILY REGGIE Administration Sodium Chloride 3 ml 04/07/20 00:00 04/14/20 08:26 0.9 % Sodium Chloride Flush 3 Ml Syringe IVFLUSH 3 ml QSHIFT REGGIE Administration Spironolactone 25 mg 04/10/20 13:30 04/14/20 08:28 Spironolactone 25 Mg Tablet PO 25 mg DAILY REGGIE Administration Protocol Topiramate 100 mg 04/06/20 23:07 04/13/20 21:50 Topiramate 100 Mg Tablet PO 100 mg BEDTIME REGGIE Administration Torsemide 80 mg 04/13/20 09:00 04/14/20 08:27 Torsemide 20 Mg Tablet PO 80 mg DAILY REGGIE Administration Protocol Trazodone HCl 50 mg 04/06/20 23:07 04/13/20 21:50 Trazodone Hcl 50 Mg Tablet PO 50 mg BEDTIME PRN Administration Sleep Vitamin D 25 mcg 04/07/20 09:00 04/14/20 08:29 Cholecalciferol (Vitamin D3) 25 Mcg Tablet PO 25 mcg DAILY REGGIE Administration Labs CBC & Chem 7: 04/15/20 06:07 04/15/20 06:07 Assessment and Plan (1) JOSE (acute kidney injury): Problem details: Creatinine is trending up Currently on high dose of Torsemide If Cr increases further, may need to lower Torsemide Status: Acute (2) Acute on chronic right heart failure: Status: Acute Assessment and Plan: 49-year-old male super morbi obese BMI 73, DM, chronic right heart heart failure, HTN, chronic pain syndrome here with increasing SOB and totoal body fluid overload/likely right heart failure and JOSE..He decompensated on 04/08 with hypercapnia hypercabia, hypoxic respiratory failure and was transfered to ICU where he required aggresive diuresisis and > 30 ib and has been on bipap and overall seem to be doing much better. Transfer out of ICU on 04/11 #Acute hypoxic hypercarbic respiratoyf failure due to hypOventilation syndrome, and Heart failure. He has significantly improved with management of heart failure and Nasal Bipap use. #Acute heart failure likely right heart failure--He was aggrexively diurese with IV diuertic drip and weight has come down to 35, and cumulative negativ 21 liters documented. Diuretics have been adjusted to oral Lasix 40 daily, aldactone 25 and Meolzone 2.5 mg daily with good effect. Additional has been started on Entresto was added in ICU. Now cardiology is recommending puttng hime back on high dose Torsemide at higher dose than home dose and Lisinopril (No Entresto), and Aldactone. No Metolazone # JOSE likely --Was due to Cardiorenal syndrome and has resolved. CR is slightly high today, will keep an eye on it #Hematuria--was due to traumatic BI has resolved. # hypertension--continue clonidine, Lisiniopril, and Aldactone # diabetes - patient reports poorly controlled diabetes -he uses U-500 insulin 175 units BID , but presently on SSI , FBS=2-1 -Add Lantus 8 today # chronic pain--He uses buprenorphine (Belbuca) 600 mcg L21N--Tj has been changed to continluigi 15 Q8 #Hypothyroidism--continue levothyroxine #HLD on Pravastatin #Hypomagenesemia--replace with oral mag #Hypoventilation--CPAP/BiPAP dependent-He claims machine at home is broken, Pulmonary and Respiratory to assist in setting him for new machine, but probably won't be done till after the weekend DVT prophylaxis: Heparin PT eval
--- NOTE | 2020-04-14 13:02 | P.PNNP_ITS ---
Subjective Subjective Date of Service: 04/14/20 Principal diagnosis: Respiratory failure Interval history: Events noted Physical Exam Vital Signs: Vital Signs: Last Vital Signs Temp 98 F 04/14/20 11:17 Pulse 78 04/14/20 11:17 Resp 20 04/14/20 12:04 BP 135/63 04/14/20 11:17 Pulse Ox 96 04/14/20 11:17 Body Mass Index 59.6 Const: General: cooperative Orientation/consciousness: oriented to person Neck: Neck: Yes supple Resp: Effort & Inspection: decreased respiratory effort Cardio: Heart sounds: no rubs GI: Auscultation: normoactive bowel sounds Skin: General skin exam: no rashes or lesions noted Neuro: General: oriented to person Motor exam (neuro): no asterixis Objective Data Labs CBC & Chem 7: 04/14/20 05:56 04/14/20 05:56 Labs: Laboratory Results - last 24 hr 04/13/20 04/13/20 04/14/20 16:22 21:18 05:56 WBC 2.8 L RBC 3.56 L Hgb 10.8 L Hct 34.9 L MCV 98.0 MCH 30.3 MCHC 30.9 L RDW 13.4 Plt Count 95 L MPV 10.0 Immature Gran % (Auto) 0.4 Neut % (Auto) 71.6 Lymph % (Auto) 14.0 L [place] % (Auto) 9.7 Eos % (Auto) 3.9 Baso % (Auto) 0.4 Lymph # (Auto) 0.4 L [place] # (Auto) 0.3 Eos # (Auto) 0.1 Baso # (Auto) 0.0 Abs Immat Gran (auto) 0.01 Absolute Neuts (auto) 2.0 Absolute Nucleated RBC 0.000 Nucleated RBC % (auto) 0.0 Smear Tech's Comments VERIFIED Sodium Potassium Chloride Carbon Dioxide Anion Gap BUN Creatinine Estim Creat Clear Calc Estimated GFR POC Glucose 254 H 250 H Random Glucose Calcium Phosphorus Magnesium 04/14/20 04/14/20 04/14/20 05:56 07:35 11:18 WBC RBC Hgb Hct MCV MCH MCHC RDW Plt Count MPV Immature Gran % (Auto) Neut % (Auto) Lymph % (Auto) [place] % (Auto) Eos % (Auto) Baso % (Auto) Lymph # (Auto) [place] # (Auto) Eos # (Auto) Baso # (Auto) Abs Immat Gran (auto) Absolute Neuts (auto) Absolute Nucleated RBC Nucleated RBC % (auto) Smear Tech's Comments Sodium 141 Potassium 4.0 Chloride 95 L Carbon Dioxide 37 H Anion Gap 13 BUN 31 H Creatinine 1.50 H Estim Creat Clear Calc 93.5 Estimated GFR 50 POC Glucose 218 H 245 H Random Glucose 221 H Calcium 8.6 Phosphorus 4.9 H Magnesium 1.5 L Assessment & Plan Assessment and plan (1) JOSE (acute kidney injury): Problem details: Creatinine is trending up Currently on high dose of Torsemide If Cr increases further, may need to lower Torsemide Status: Acute (2) Acute on chronic right heart failure: Status: Acute Time Spent With Patient Time: Total time spent is greater than 50% in coordination of care (as documented) at patient's floor/unit and/or counseling patient:
[2020-04-14 16:17] LABS: Glucose, Whole Blood 283 mg/dL (60-115)
[2020-04-14] MEDS: Magnesium Oxide 400 MG TABLET PO (16:32)
[2020-04-14 19:49] LABS: Glucose, Whole Blood 269 mg/dL (60-115)
[2020-04-14] MEDS: Melatonin 3 MG TABLET 6 MG PO (21:14)
[2020-04-14] MEDS: Cyclobenzaprine HCl 5 MG TABLET PO (21:14)
[2020-04-14] MEDS: Topiramate 100 MG TABLET PO (21:14)
[2020-04-14] MEDS: Pravastatin Sodium 10 MG TABLET PO (21:15)
[2020-04-14] MEDS: traZODone HCL 50 MG TABLET PO (21:15)
[2020-04-14] MEDS: Insulin Glargine,Hum.rec.anlog 100 UNIT/ML 10 ML VIAL 8 UNIT SUBCUT (21:16)
[2020-04-14] MEDS: Loperamide HCl 2 MG CAPSULE PO (21:44)
[2020-04-15] VITALS (13 sets, daily range): BP systolic 124–162; BP diastolic 53–81; PULSE 79–90; RESP 18–28; TEMP 36.6–37.3; O2SAT 92–97
[2020-04-15] MEDS: Omeprazole 20 MG CAPSULE.DR PO ×2 (06:25→16:29)
[2020-04-15] MEDS: Levothyroxine Sodium 75 MCG TABLET 37.5 MCG PO (06:25)
[2020-04-15 06:31] LABS: Basophils Percent Auto 0.3 % (0-2); Eosinophils Absolute Auto 0.1 X10*3/uL (0.0-0.4); Eosinophils Percent Auto 3.4 % (0-4); Hematocrit 33.7 % (42-52); Hemoglobin 10.3 g/dl (14.0-18.0); Lymphocytes Absolute Auto 0.5 X10*3/uL (1.2-4.9); Lymphocytes Percent Auto 17.2 % (20-40); MANUAL DIFF FLAG SCAN; Mean Corpuscular HGB Conc 30.6 g/dl (31.0-36.0); Mean Corpuscular Hemoglobin 29.8 pg (27.0-33.0); Mean Corpuscular Volume 97.4 fL (80-98); Mean Platelet Volume 10.4 fL (9.4-12.4); Monocytes Absolute Auto 0.2 X10*3/uL (0.1-1.2); Monocytes Percent Auto 7.7 % (2-11); Neutrophils Absolute Auto 2.1 X10*3/uL (2.0-8.3); Neutrophils Percent Auto 71.4 % (45-73); Red Blood Count 3.46 X10*6/uL (4.60-5.80); Red Cell Distribution Width 13.2 % (11.0-16.0); SCAN SMEAR FLAG 1
[2020-04-15 06:47] LABS: Platelet Count 89 X10*3/uL (160-400)
[2020-04-15 07:05] LABS: Anion Gap 13 (12-20); Blood Urea Nitrogen 35 mg/dL (9-16); Calcium 8.6 mg/dL (8.4-10.2); Carbon Dioxide 39 mmol/L (22-29); Chloride 93 mmol/L (96-108); Creatinine Clr Calc Pharmacy 94.1; Estimated Glomerular Filt Rate 50; Glucose Random 229 mg/dL (60-115); Phosphorus 4.7 mg/dL (2.7-4.5); Sodium 141 mmol/L (135-145)
[2020-04-15 07:26] LABS: Magnesium 1.4 mg/dL (1.6-2.6)
[2020-04-15 07:48] LABS: Glucose, Whole Blood 225 mg/dL (60-115)
[2020-04-15 07:59] LABS: SLIDE REVIEW VERIFIED
[2020-04-15] MEDS: Insulin Lispro 100 UNIT/ML 3 ML VIAL SUBCUT ×4 (08:04→21:14)
[2020-04-15] MEDS: Heparin Sodium,Porcine 5,000 UNIT/ML VIAL 5000 UNIT SUBCUT ×2 (09:20→16:30)
[2020-04-15] MEDS: Cholecalciferol (Vitamin D3) 25 MCG TABLET PO (09:21)
[2020-04-15] MEDS: lisinopriL 10 MG TABLET PO (09:21)
[2020-04-15] MEDS: Pregabalin 50 MG CAPSULE PO (09:21)
[2020-04-15] MEDS: Spironolactone 25 MG TABLET PO (09:21)
[2020-04-15] MEDS: Aspirin Enteric Coated 81 MG TABLET.DR PO (09:22)
[2020-04-15] MEDS: cloNIDine HCL 0.1 MG TABLET PO ×2 (09:22→21:12)
[2020-04-15] MEDS: Torsemide 20 MG TABLET 80 MG PO (09:22)
[2020-04-15] MEDS: Magnesium Sulfate/H2O 2 GM/50 ML PIGGYBACK IV (09:23)
[2020-04-15] MEDS: 0.9 % Sodium Chloride Flush 3 ML SYRINGE IVFLUSH ×3 (09:23→21:12)
[2020-04-15] MEDS: Magnesium Oxide 400 MG TABLET PO ×2 (09:40→16:31)
[2020-04-15] MEDS: Dicyclomine HCl 10 MG CAPSULE 20 MG PO ×4 (09:42→21:12)
--- NOTE | 2020-04-15 09:51 | HO.PM.IMPN ---
Subjective Subjective Date of Service: 04/15/20 Interval History: Seen in f/u for heart failure exacerbation in setting of morbid obesity BMI 73. He decompensated on 04/08 with hypercapnia hypercabia, hypoxic respiratory failure and was transfered to ICU where he required aggresive diuresisis and > 30 ib and has been on bipap and overall seem to be doing much better. No change Gen: no fever Resp: less sob, no cough CV: no chest, marked leg LUNA still GI: No n/v, no abd pain Neuro: No confusion Physical Exam Vital Signs: Vital Signs: Last Vital Signs Temp 98.4 F 04/15/20 03:14 Pulse 82 04/15/20 09:22 Resp 20 04/15/20 07:51 BP 161/60 H 04/15/20 09:22 Pulse Ox 95 04/15/20 03:14 Body Mass Index 59.6 Const: Other: Constitutional Awake and Alert, Neck Supple, hard to tell if there is JVD Cardiovascular RRR, S1 S2, No S3 S4, 3+ pedal edema Respiratory Lungs diminish breath sounds Gastrointestinal Non tender, Non-distended Skin No rash, right BKA Neurological Alert & oriented x3 Psychological Appropriate affect Objective Data Current Medications Generic Name Dose Route Start Last Admin Trade Name Freq PRN Reason Stop Dose Admin Acetaminophen 650 mg 04/06/20 23:07 Acetaminophen 325 Mg Tablet PO Q6H PRN Pain, Mild (Pain Scale 1-3) Aspirin 81 mg 04/07/20 09:00 04/15/20 09:22 Aspirin Enteric Coated 81 Mg Tablet. PO 81 mg DAILY REGGIE Administration Calcium Carbonate 500 mg 04/07/20 09:00 04/15/20 09:21 Calcium Carbonate 500 Mg Tablet PO 500 mg DAILY REGGIE Administration Clonidine HCl 0.1 mg 04/06/20 23:07 04/15/20 09:22 Clonidine Hcl 0.1 Mg Tablet PO 0.1 mg BID REGGIE Administration Protocol Cyclobenzaprine HCl 5 mg 04/06/20 23:07 04/14/20 21:14 Cyclobenzaprine Hcl 5 Mg Tablet PO 5 mg TID PRN Administration Pain Dicyclomine HCl 20 mg 04/06/20 23:07 04/15/20 09:42 Dicyclomine Hcl 10 Mg Capsule PO 20 mg QID REGGIE Administration Docusate Sodium 100 mg 04/06/20 23:07 Docusate Sodium 100 Mg Capsule PO DAILY PRN Constipation Heparin Sodium (Porcine) 5,000 unit 04/07/20 00:00 04/15/20 09:20 Heparin Sodium,Porcine 5,000 Unit/Ml Vial SUBCUT 5,000 unit Q8H REGGIE Administration Magnesium Sulfate 2 gm in 50 mls @ 25 mls/hr 04/15/20 08:00 04/15/20 09:23 IV 04/15/20 09:59 25 mls/hr ONCE ONE Administration Insulin Glargine 8 unit 04/14/20 21:00 04/14/20 21:16 Insulin Glargine,Hum.Rec.Anlog 100 Unit/Ml 10 Ml Vial SUBCUT 8 unit BEDTIME REGGIE Administration Insulin Human Lispro 0 unit 04/07/20 07:30 04/15/20 08:04 Insulin Lispro 100 Unit/Ml 3 Ml Vial SUBCUT 4 unit QIDACHS REGGIE Administration Protocol Levothyroxine Sodium 37.5 mcg 04/07/20 06:30 04/15/20 06:25 Levothyroxine Sodium 75 Mcg Tablet PO 37.5 mcg DAILY@0630 REGGIE Administration Lisinopril 10 mg 04/12/20 11:04 04/15/20 09:21 Lisinopril 10 Mg Tablet PO 10 mg DAILY REGGIE Administration Protocol Magnesium Oxide 400 mg 04/14/20 17:30 04/15/20 09:40 Magnesium Oxide 400 Mg Tablet PO 04/16/20 08:31 400 mg BIDPC REGGIE Administration Melatonin 6 mg 04/06/20 23:07 04/14/20 21:14 Melatonin 3 Mg Tablet PO 6 mg BEDTIME PRN Administration Sleep Omeprazole 20 mg 04/06/20 23:07 04/15/20 06:25 Omeprazole 20 Mg Capsule. PO 20 mg BID@0630,1630 REGGIE Administration Ondansetron HCl 4 mg 04/06/20 23:07 Ondansetron Hcl 4 Mg/2 Ml Vial IVPUSH Q8H PRN Nausea and Vomiting Pharmacy Consult 1 each 04/06/20 20:04 Consult Rx Perform Med Rec MISCELLANE ONCE PRN Consult order Pravastatin Sodium 10 mg 04/06/20 23:07 04/14/20 21:15 Pravastatin Sodium 10 Mg Tablet PO 10 mg BEDTIME REGGIE Administration Pregabalin 50 mg 04/09/20 09:00 04/15/20 09:21 Pregabalin 50 Mg Capsule PO 50 mg DAILY REGGIE Administration Sodium Chloride 3 ml 04/07/20 00:00 04/15/20 09:23 0.9 % Sodium Chloride Flush 3 Ml Syringe IVFLUSH 3 ml QSHIFT REGGIE Administration Spironolactone 25 mg 04/10/20 13:30 04/15/20 09:21 Spironolactone 25 Mg Tablet PO 25 mg DAILY REGGIE Administration Protocol Topiramate 100 mg 04/06/20 23:07 04/14/20 21:14 Topiramate 100 Mg Tablet PO 100 mg BEDTIME REGGIE Administration Torsemide 80 mg 04/13/20 09:00 04/15/20 09:22 Torsemide 20 Mg Tablet PO 80 mg DAILY REGGIE Administration Protocol Trazodone HCl 50 mg 04/06/20 23:07 04/14/20 21:15 Trazodone Hcl 50 Mg Tablet PO 50 mg BEDTIME PRN Administration Sleep Vitamin D 25 mcg 04/07/20 09:00 04/15/20 09:21 Cholecalciferol (Vitamin D3) 25 Mcg Tablet PO 25 mcg DAILY REGGIE Administration Labs CBC & Chem 7: 04/15/20 06:07 04/15/20 06:07 Assessment and Plan (1) JOSE (acute kidney injury): Problem details: Creatinine is trending up Currently on high dose of Torsemide If Cr increases further, may need to lower Torsemide Status: Acute (2) Acute on chronic right heart failure: Status: Acute Assessment and Plan: 49-year-old male super morbi obese BMI 73, DM, chronic right heart heart failure, HTN, chronic pain syndrome here with increasing SOB and totoal body fluid overload/likely right heart failure and JOSE..He decompensated on 04/08 with hypercapnia hypercabia, hypoxic respiratory failure and was transfered to ICU where he required aggresive diuresisis and > 30 ib and has been on bipap and overall seem to be doing much better. Transfer out of ICU on 04/11 #Acute hypoxic hypercarbic respiratoyf failure due to hypOventilation syndrome, and Heart failure. He has significantly improved with management of heart failure and Nasal Bipap use. #Acute heart failure likely right heart failure--He was aggrexively diurese with IV diuertic drip and weight has come down to 35, and cumulative negativ 21 liters documented. Diuretics have been adjusted to oral Lasix 40 daily, aldactone 25 and Meolzone 2.5 mg daily with good effect. Additional has been started on Entresto was added in ICU. Now cardiology is recommending puttng hime back on high dose Torsemide at higher dose than home dose and Lisinopril (No Entresto), and Aldactone. No Metolazone # JOSE likely --Was due to Cardiorenal syndrome and has resolved. CR is slightly better today #Hematuria--was due to traumatic BI has resolved. # hypertension--continue clonidine, Lisiniopril, and Aldactone # diabetes - patient reports poorly controlled diabetes -he uses U-500 insulin 175 units BID , but presently on SSI , UEN=499 -Increase Lantus to 15 # chronic pain--He uses buprenorphine (Belbuca) 600 mcg O22O--Qp has been changed to MS contine 15 Q8 #Hypothyroidism--continue levothyroxine #HLD on Pravastatin #Hypomagenesemia--replace with oral mag #Hypoventilation--CPAP/BiPAP dependent-He claims machine at home is broken, Pulmonary and Respiratory to assist in setting him for new machine, but probably won't be done till after the weekend DVT prophylaxis: Heparin PT eval
[2020-04-15 11:22] LABS: Glucose, Whole Blood 285 mg/dL (60-115)
--- NOTE | 2020-04-15 12:28 | PM.PNCARD ---
Subjective Subjective Date of Service: 04/15/20 Principal diagnosis: Respiratory failure Interval history: He states that he is uncomfortable in bed and having a lot of pains but no specific cardiac complaints. Review of Systems Review of Systems Yes all other systems are reviewed and are negative Constitutional: Reports weakness Cardiovascular: Reports as per HPI, Denies chest pain, Denies chest pain at rest, Denies chest pain with activity, Denies syncope, Reports pedal edema, Denies irregular heart rhythm, Reports leg edema, Reports dyspnea and Reports dyspnea on exertion Respiratory: Reports dyspnea and Reports dyspnea on exertion Reports system reviewed and no additional complaints, except as documented, Denies syncope and Reports weakness Physical Exam Vital Signs: Last Vital Signs Temp 99.1 F 04/15/20 08:00 Pulse 82 04/15/20 09:22 Resp 20 04/15/20 11:31 BP 161/60 H 04/15/20 09:22 Pulse Ox 95 04/15/20 03:14 Body Mass Index 59.6 Const General: cooperative, comfortable and no acute distress Orientation/consciousness: patient oriented x3 HENIL Other: Unremarkable Neck Neck: Yes normal visual inspection Chest Chest palpation & inspection: normal inspection of the chest Resp Auscultation: no crackles, no wheezes and diminished lung sounds Cardio Jugular venous distension: no JVD Palpation: normal PMI Heart sounds: S1 normal heart sound present, S2 normal heart sound present, no gallops, no murmurs and no rubs GI Palpation (GI): Soft to palpation Back/Spine/Pelvis Other: unremarkable Skin General skin exam: no rashes or lesions noted Neuro General: patient oriented x3 Psych Mental Status: mental status grossly normal Results Labs and Meds Result diagrams: 04/15/20 06:07 04/15/20 06:07 Lab results: Laboratory Results - last 24 hr 04/14/20 04/14/20 04/15/20 16:07 19:41 06:07 WBC 3.0 L RBC 3.46 L Hgb 10.3 L Hct 33.7 L MCV 97.4 MCH 29.8 MCHC 30.6 L RDW 13.2 Plt Count 89 L MPV 10.4 Immature Gran % (Auto) 0.0 Neut % (Auto) 71.4 Lymph % (Auto) 17.2 L [place] % (Auto) 7.7 Eos % (Auto) 3.4 Baso % (Auto) 0.3 Lymph # (Auto) 0.5 L [place] # (Auto) 0.2 Eos # (Auto) 0.1 Baso # (Auto) 0.0 Abs Immat Gran (auto) 0.00 Absolute Neuts (auto) 2.1 Absolute Nucleated RBC 0.000 Nucleated RBC % (auto) 0.0 Smear Tech's Comments VERIFIED Sodium Potassium Chloride Carbon Dioxide Anion Gap BUN Creatinine Estim Creat Clear Calc Estimated GFR POC Glucose 283 H 269 H Random Glucose Calcium Phosphorus Magnesium 04/15/20 04/15/20 04/15/20 06:07 07:45 11:16 WBC RBC Hgb Hct MCV MCH MCHC RDW Plt Count MPV Immature Gran % (Auto) Neut % (Auto) Lymph % (Auto) [place] % (Auto) Eos % (Auto) Baso % (Auto) Lymph # (Auto) [place] # (Auto) Eos # (Auto) Baso # (Auto) Abs Immat Gran (auto) Absolute Neuts (auto) Absolute Nucleated RBC Nucleated RBC % (auto) Smear Tech's Comments Sodium 141 Potassium 4.0 Chloride 93 L Carbon Dioxide 39 H Anion Gap 13 BUN 35 H Creatinine 1.49 H Estim Creat Clear Calc 94.1 Estimated GFR 50 POC Glucose 225 H 285 H Random Glucose 229 H Calcium 8.6 Phosphorus 4.7 H Magnesium 1.4 L* Progress Note: A&P Assessment and plan (1) Acute on chronic right heart failure: Status: Acute (2) Acute respiratory failure: Status: Acute (3) Morbid obesity: Status: Acute Assessment and Plan: Suspected obesity related hypo-ventilation syndrome and right heart failure. He is on oral torsemide 80 mg daily. He is almost -33 L negative since the time of admission. Stable. Correct electrolytes. Will need CPAP upon discharge. Fall Risk Details Current Medications: Current Medications Generic Name Dose Route Start Last Admin Trade Name Freq PRN Reason Stop Dose Admin Acetaminophen 650 mg 04/06/20 23:07 Acetaminophen 325 Mg Tablet PO Q6H PRN Pain, Mild (Pain Scale 1-3) Aspirin 81 mg 04/07/20 09:00 04/15/20 09:22 Aspirin Enteric Coated 81 Mg Tablet. PO 81 mg DAILY REGGIE Administration Calcium Carbonate 500 mg 04/07/20 09:00 04/15/20 09:21 Calcium Carbonate 500 Mg Tablet PO 500 mg DAILY REGGIE Administration Clonidine HCl 0.1 mg 04/06/20 23:07 04/15/20 09:22 Clonidine Hcl 0.1 Mg Tablet PO 0.1 mg BID [facility] Administration Protocol Cyclobenzaprine HCl 5 mg 04/06/20 23:07 04/14/20 21:14 Cyclobenzaprine Hcl 5 Mg Tablet PO 5 mg TID PRN Administration Pain Dicyclomine HCl 20 mg 04/06/20 23:07 04/15/20 11:28 Dicyclomine Hcl 10 Mg Capsule PO 20 mg QID REGGIE Administration Docusate Sodium 100 mg 04/06/20 23:07 Docusate Sodium 100 Mg Capsule PO DAILY PRN Constipation Heparin Sodium (Porcine) 5,000 unit 04/07/20 00:00 04/15/20 09:20 Heparin Sodium,Porcine 5,000 Unit/Ml Vial SUBCUT 5,000 unit Q8H [facility] Administration Insulin Glargine 15 unit 04/15/20 21:00 Insulin Glargine,Hum.Rec.Anlog 100 Unit/Ml 10 Ml Vial SUBCUT BEDTIME [facility] Insulin Human Lispro 0 unit 04/07/20 07:30 04/15/20 11:25 Insulin Lispro 100 Unit/Ml 3 Ml Vial SUBCUT 6 unit QIDACHS [facility] Administration Protocol Levothyroxine Sodium 37.5 mcg 04/07/20 06:30 04/15/20 06:25 Levothyroxine Sodium 75 Mcg Tablet PO 37.5 mcg DAILY@0630 [facility] Administration Lisinopril 10 mg 04/12/20 11:04 04/15/20 09:21 Lisinopril 10 Mg Tablet PO 10 mg DAILY [facility] Administration Protocol Magnesium Oxide 400 mg 04/14/20 17:30 04/15/20 09:40 Magnesium Oxide 400 Mg Tablet PO 04/16/20 08:31 400 mg BIDPC [facility] Administration Melatonin 6 mg 04/06/20 23:07 04/14/20 21:14 Melatonin 3 Mg Tablet PO 6 mg BEDTIME PRN Administration Sleep Omeprazole 20 mg 04/06/20 23:07 04/15/20 06:25 Omeprazole 20 Mg Capsule. PO 20 mg BID@0630,1630 [facility] Administration Ondansetron HCl 4 mg 04/06/20 23:07 Ondansetron Hcl 4 Mg/2 Ml Vial IVPUSH Q8H PRN Nausea and Vomiting Pharmacy Consult 1 each 04/06/20 20:04 Consult Rx Perform Med Rec MISCELLANE ONCE PRN Consult order Pravastatin Sodium 10 mg 04/06/20 23:07 04/14/20 21:15 Pravastatin Sodium 10 Mg Tablet PO 10 mg BEDTIME REGGIE Administration Pregabalin 50 mg 04/09/20 09:00 04/15/20 09:21 Pregabalin 50 Mg Capsule PO 50 mg DAILY REGGIE Administration Sodium Chloride 3 ml 04/07/20 00:00 04/15/20 09:23 0.9 % Sodium Chloride Flush 3 Ml Syringe IVFLUSH 3 ml QSHIFT REGGIE Administration Spironolactone 25 mg 04/10/20 13:30 04/15/20 09:21 Spironolactone 25 Mg Tablet PO 25 mg DAILY REGGIE Administration Protocol Topiramate 100 mg 04/06/20 23:07 04/14/20 21:14 Topiramate 100 Mg Tablet PO 100 mg BEDTIME REGGIE Administration Torsemide 80 mg 04/13/20 09:00 04/15/20 09:22 Torsemide 20 Mg Tablet PO 80 mg DAILY REGGIE Administration Protocol Trazodone HCl 50 mg 04/06/20 23:07 04/14/20 21:15 Trazodone Hcl 50 Mg Tablet PO 50 mg BEDTIME PRN Administration Sleep Vitamin D 25 mcg 04/07/20 09:00 04/15/20 09:21 Cholecalciferol (Vitamin D3) 25 Mcg Tablet PO 25 mcg DAILY REGGIE Administration Time Spent With Patient Time: Total time spent is greater than 50% in coordination of care (as documented) at patient's floor/unit and/or counseling patient: Time with patient: less than 15 minutes
--- NOTE | 2020-04-15 15:12 | PM.PNNEP ---
Subjective Subjective Date of Service: 04/15/20 Principal diagnosis: Respiratory failure Interval history: Events noted Physical Exam Vital Signs: Vital Signs: Last Vital Signs Temp 99.1 F 04/15/20 12:00 Pulse 82 04/15/20 12:00 Resp 18 04/15/20 12:00 BP 161/60 H 04/15/20 12:00 Pulse Ox 95 04/15/20 03:14 Body Mass Index 59.6 Const: General: cooperative Orientation/consciousness: oriented to person Neck: Neck: Yes supple Resp: Effort & Inspection: decreased respiratory effort Cardio: Heart sounds: no rubs GI: Auscultation: normoactive bowel sounds Skin: General skin exam: no rashes or lesions noted Neuro: General: oriented to person Motor exam (neuro): no asterixis Objective Data Labs CBC & Chem 7: 04/15/20 06:07 04/15/20 06:07 Labs: Laboratory Results - last 24 hr 04/14/20 04/14/20 04/15/20 16:07 19:41 06:07 WBC 3.0 L RBC 3.46 L Hgb 10.3 L Hct 33.7 L MCV 97.4 MCH 29.8 MCHC 30.6 L RDW 13.2 Plt Count 89 L MPV 10.4 Immature Gran % (Auto) 0.0 Neut % (Auto) 71.4 Lymph % (Auto) 17.2 L [place] % (Auto) 7.7 Eos % (Auto) 3.4 Baso % (Auto) 0.3 Lymph # (Auto) 0.5 L [place] # (Auto) 0.2 Eos # (Auto) 0.1 Baso # (Auto) 0.0 Abs Immat Gran (auto) 0.00 Absolute Neuts (auto) 2.1 Absolute Nucleated RBC 0.000 Nucleated RBC % (auto) 0.0 Smear Tech's Comments VERIFIED Sodium Potassium Chloride Carbon Dioxide Anion Gap BUN Creatinine Estim Creat Clear Calc Estimated GFR POC Glucose 283 H 269 H Random Glucose Calcium Phosphorus Magnesium 04/15/20 04/15/20 04/15/20 06:07 07:45 11:16 WBC RBC Hgb Hct MCV MCH MCHC RDW Plt Count MPV Immature Gran % (Auto) Neut % (Auto) Lymph % (Auto) [place] % (Auto) Eos % (Auto) Baso % (Auto) Lymph # (Auto) [place] # (Auto) Eos # (Auto) Baso # (Auto) Abs Immat Gran (auto) Absolute Neuts (auto) Absolute Nucleated RBC Nucleated RBC % (auto) Smear Tech's Comments Sodium 141 Potassium 4.0 Chloride 93 L Carbon Dioxide 39 H Anion Gap 13 BUN 35 H Creatinine 1.49 H Estim Creat Clear Calc 94.1 Estimated GFR 50 POC Glucose 225 H 285 H Random Glucose 229 H Calcium 8.6 Phosphorus 4.7 H Magnesium 1.4 L* Assessment & Plan Assessment and plan (1) JOSE (acute kidney injury): Problem details: Creatinine is trended up - unchanged today Currently on high dose of Torsemide If Cr increases further, may need to lower Torsemide Status: Acute (2) Acute on chronic right heart failure: Status: Acute Time Spent With Patient Time: Total time spent is greater than 50% in coordination of care (as documented) at patient's floor/unit and/or counseling patient:
[2020-04-15 16:24] LABS: Glucose, Whole Blood 335 mg/dL (60-115)
[2020-04-15] MEDS: Morphine Sulfate Immed Release 15 MG TABLET PO (16:29)
[2020-04-15] MEDS: Cyclobenzaprine HCl 5 MG TABLET PO (17:47)
[2020-04-15 19:57] LABS: Glucose, Whole Blood 294 mg/dL (60-115)
[2020-04-15] MEDS: Pravastatin Sodium 10 MG TABLET PO (21:13)
[2020-04-15] MEDS: Topiramate 100 MG TABLET PO (21:13)
[2020-04-15] MEDS: Insulin Glargine,Hum.rec.anlog 100 UNIT/ML 10 ML VIAL 15 UNIT SUBCUT (21:14)
[2020-04-15] MEDS: Melatonin 3 MG TABLET 6 MG PO (21:30)
[2020-04-15] MEDS: traZODone HCL 50 MG TABLET PO (21:30)
[2020-04-16] VITALS (15 sets, daily range): BP systolic 137–182; BP diastolic 57–77; PULSE 64–89; RESP 13–24; TEMP 36.2–37.2; O2SAT 83–96; BMI 64.7
[2020-04-16] MEDS: Cyclobenzaprine HCl 5 MG TABLET PO ×2 (01:06→21:56)
[2020-04-16] MEDS: Heparin Sodium,Porcine 5,000 UNIT/ML VIAL 5000 UNIT SUBCUT ×4 (01:18→23:41)
[2020-04-16] MEDS: Acetaminophen 325 MG TABLET 650 MG PO (05:42)
[2020-04-16] MEDS: Levothyroxine Sodium 75 MCG TABLET 37.5 MCG PO (05:43)
[2020-04-16] MEDS: Omeprazole 20 MG CAPSULE.DR PO ×2 (05:45→17:06)
[2020-04-16 06:44] LABS: Basophils Percent Auto 0.3 % (0-2); Eosinophils Absolute Auto 0.1 X10*3/uL (0.0-0.4); Eosinophils Percent Auto 3.8 % (0-4); Hemoglobin 11.1 g/dl (14.0-18.0); Imm Gran Abs Auto 0.01 X10*3/uL (0.00-0.03); Imm Gran Pct Auto 0.3 % (0.0-0.4); Lymphocytes Absolute Auto 0.5 X10*3/uL (1.2-4.9); Lymphocytes Percent Auto 16.8 % (20-40); MANUAL DIFF FLAG SCAN; Mean Corpuscular HGB Conc 30.8 g/dl (31.0-36.0); Mean Corpuscular Hemoglobin 30.1 pg (27.0-33.0); Mean Corpuscular Volume 97.6 fL (80-98); Mean Platelet Volume 10.8 fL (9.4-12.4); Monocytes Absolute Auto 0.2 X10*3/uL (0.1-1.2); Monocytes Percent Auto 7.6 % (2-11); Neutrophils Absolute Auto 2.1 X10*3/uL (2.0-8.3); Neutrophils Percent Auto 71.2 % (45-73); Red Blood Count 3.69 X10*6/uL (4.60-5.80); Red Cell Distribution Width 13.2 % (11.0-16.0); SCAN SMEAR FLAG 1; White Blood Count 2.9 X10*3/uL (4.8-10.8)
[2020-04-16 06:46] LABS: Platelet Count 87 X10*3/uL (160-400)
[2020-04-16 07:21] LABS: Anion Gap 13 (12-20); Blood Urea Nitrogen 35 mg/dL (9-16); Calcium 8.9 mg/dL (8.4-10.2); Carbon Dioxide 39 mmol/L (22-29); Chloride 93 mmol/L (96-108); Creatinine Clr Calc Pharmacy 97.8; Estimated Glomerular Filt Rate 49; Glucose Random 257 mg/dL (60-115); Magnesium 1.6 mg/dL (1.6-2.6); Phosphorus 4.7 mg/dL (2.7-4.5); Sodium 141 mmol/L (135-145)
[2020-04-16 07:36] LABS: Glucose, Whole Blood 289 mg/dL (60-115)
[2020-04-16] MEDS: Insulin Lispro 100 UNIT/ML 3 ML VIAL SUBCUT ×4 (07:45→21:52)
[2020-04-16] MEDS: 0.9 % Sodium Chloride Flush 3 ML SYRINGE IVFLUSH ×3 (07:52→21:56)
[2020-04-16] MEDS: Pregabalin 50 MG CAPSULE PO (07:53)
[2020-04-16] MEDS: Torsemide 20 MG TABLET 80 MG PO (07:53)
[2020-04-16] MEDS: Cholecalciferol (Vitamin D3) 25 MCG TABLET PO (07:54)
[2020-04-16] MEDS: Dicyclomine HCl 10 MG CAPSULE 20 MG PO ×4 (07:54→21:51)
[2020-04-16] MEDS: Magnesium Oxide 400 MG TABLET PO (07:54)
[2020-04-16] MEDS: Spironolactone 25 MG TABLET PO (07:55)
[2020-04-16] MEDS: lisinopriL 10 MG TABLET PO (07:59)
[2020-04-16] MEDS: Aspirin Enteric Coated 81 MG TABLET.DR PO (07:59)
[2020-04-16] MEDS: cloNIDine HCL 0.1 MG TABLET PO ×2 (07:59→21:53)
[2020-04-16 08:25] LABS: SLIDE REVIEW VERIFIED
[2020-04-16 11:29] LABS: Glucose, Whole Blood 272 mg/dL (60-115)
--- NOTE | 2020-04-16 12:19 | MHC.CLN ---
F/U 100% PO INTAKE DIET RX: 1800DM 2GM NA-APPROPRIATE DIET WILL PROMOTE SLOW WT LOSS FOLLOWING
--- NOTE | 2020-04-16 12:33 | P.PNIM_ITS ---
Subjective Subjective Date of Service: 04/16/20 Interval History: Seen in f/u for heart failure exacerbation in setting of morbid obesity BMI 73. He decompensated on 04/08 with hypercapnia hypercabia, hypoxic respiratory failure and was transfered to ICU where he required aggresive diuresisis and > 30 ib and has been on bipap and overall seem to be doing much better. No change, uncomfortable with airloss bed Gen: no fever Resp: less sob, no cough CV: no chest, marked leg LUNA still GI: No n/v, no abd pain Neuro: No confusion Physical Exam Vital Signs: Vital Signs: Last Vital Signs Temp 97.2 F 04/16/20 11:56 Pulse 89 04/16/20 11:56 Resp 20 04/16/20 11:56 BP 137/60 04/16/20 11:56 Pulse Ox 93 04/16/20 11:56 Body Mass Index 64.7 Const: Other: Constitutional Awake and Alert, Neck Supple, hard to tell if there is JVD Cardiovascular RRR, S1 S2, No S3 S4, 3+ pedal edema Respiratory Lungs diminish breath sounds Gastrointestinal Non tender, Non-distended Skin No rash, right BKA Neurological Alert & oriented x3 Psychological Appropriate affect General: lethargic and patient obtunded Nutritional Appearance: obese morbidly obese Orientation/consciousness: oriented to person, patient oriented x3, patient obtunded and lethargic Neuro: General: oriented to person, patient oriented x3 and patient obtunded Objective Data Current Medications Generic Name Dose Route Start Last Admin Trade Name Almaz PRN Reason Stop Dose Admin Acetaminophen 650 mg 04/06/20 23:07 04/16/20 05:42 Acetaminophen 325 Mg Tablet PO 650 mg Q6H PRN Administration Pain, Mild (Pain Scale 1-3) Aspirin 81 mg 04/07/20 09:00 04/16/20 07:59 Aspirin Enteric Coated 81 Mg Tablet. PO 81 mg DAILY REGGIE Administration Calcium Carbonate 500 mg 04/07/20 09:00 04/16/20 07:53 Calcium Carbonate 500 Mg Tablet PO 500 mg DAILY REGGIE Administration Clonidine HCl 0.1 mg 04/06/20 23:07 04/16/20 07:59 Clonidine Hcl 0.1 Mg Tablet PO 0.1 mg BID REGGIE Administration Protocol Cyclobenzaprine HCl 5 mg 04/06/20 23:07 04/16/20 01:06 Cyclobenzaprine Hcl 5 Mg Tablet PO 5 mg TID PRN Administration Pain Dicyclomine HCl 20 mg 04/06/20 23:07 04/16/20 07:54 Dicyclomine Hcl 10 Mg Capsule PO 20 mg QID REGGIE Administration Docusate Sodium 100 mg 04/06/20 23:07 Docusate Sodium 100 Mg Capsule PO DAILY PRN Constipation Heparin Sodium (Porcine) 5,000 unit 04/07/20 00:00 04/16/20 07:46 Heparin Sodium,Porcine 5,000 Unit/Ml Vial SUBCUT 5,000 unit Q8H REGGIE Administration Insulin Glargine 15 unit 04/15/20 21:00 04/15/20 21:14 Insulin Glargine,Hum.Rec.Anlog 100 Unit/Ml 10 Ml Vial SUBCUT 15 unit BEDTIME [facility] Administration Insulin Human Lispro 0 unit 04/07/20 07:30 04/16/20 07:45 Insulin Lispro 100 Unit/Ml 3 Ml Vial SUBCUT 6 unit QIDACHS [facility] Administration Protocol Levothyroxine Sodium 37.5 mcg 04/07/20 06:30 04/16/20 05:43 Levothyroxine Sodium 75 Mcg Tablet PO 37.5 mcg DAILY@0630 [facility] Administration Lisinopril 10 mg 04/12/20 11:04 04/16/20 07:59 Lisinopril 10 Mg Tablet PO 10 mg DAILY [facility] Administration Protocol Melatonin 6 mg 04/06/20 23:07 04/15/20 21:30 Melatonin 3 Mg Tablet PO 6 mg BEDTIME PRN Administration Sleep Morphine Sulfate 15 mg 04/15/20 14:54 04/15/20 16:29 Morphine Sulfate Immed Release 15 Mg Tablet PO 15 mg Q6H PRN Administration Pain, Mild (Pain Scale 1-3) Omeprazole 20 mg 04/06/20 23:07 04/16/20 05:45 Omeprazole 20 Mg Capsule.Dr PO 20 mg BID@0630,1630 [facility] Administration Ondansetron HCl 4 mg 04/06/20 23:07 Ondansetron Hcl 4 Mg/2 Ml Vial IVPUSH Q8H PRN Nausea and Vomiting Pharmacy Consult 1 each 04/06/20 20:04 Consult Rx Perform Med Rec MISCELLANE ONCE PRN Consult order Pravastatin Sodium 10 mg 04/06/20 23:07 04/15/20 21:13 Pravastatin Sodium 10 Mg Tablet PO 10 mg BEDTIME REGGIE Administration Pregabalin 50 mg 04/09/20 09:00 04/16/20 07:53 Pregabalin 50 Mg Capsule PO 50 mg DAILY REGGIE Administration Sodium Chloride 3 ml 04/07/20 00:00 04/16/20 07:52 0.9 % Sodium Chloride Flush 3 Ml Syringe IVFLUSH 3 ml QSHIFT REGGIE Administration Spironolactone 25 mg 04/10/20 13:30 04/16/20 07:55 Spironolactone 25 Mg Tablet PO 25 mg DAILY REGGIE Administration Protocol Topiramate 100 mg 04/06/20 23:07 04/15/20 21:13 Topiramate 100 Mg Tablet PO 100 mg BEDTIME REGGIE Administration Torsemide 80 mg 04/13/20 09:00 04/16/20 07:53 Torsemide 20 Mg Tablet PO 80 mg DAILY REGGIE Administration Protocol Trazodone HCl 50 mg 04/06/20 23:07 04/15/20 21:30 Trazodone Hcl 50 Mg Tablet PO 50 mg BEDTIME PRN Administration Sleep Vitamin D 25 mcg 04/07/20 09:00 04/16/20 07:54 Cholecalciferol (Vitamin D3) 25 Mcg Tablet PO 25 mcg DAILY REGGIE Administration Labs CBC & Chem 7: 04/16/20 05:57 04/16/20 05:57 Assessment and Plan (1) JOSE (acute kidney injury): Problem details: Creatinine is trended up - unchanged today Currently on high dose of Torsemide If Cr increases further, may need to lower Torsemide Status: Acute (2) Acute on chronic right heart failure: Status: Acute Assessment and Plan: 49-year-old male super morbi obese BMI 73, DM, chronic right heart heart failure, HTN, chronic pain syndrome here with increasing SOB and totoal body fluid overload/likely right heart failure and JOSE..He decompensated on 04/08 with hypercapnia hypercabia, hypoxic respiratory failure and was transfered to ICU where he required aggresive diuresisis and > 30 ib and has been on bipap and overall seem to be doing much better. Transfer out of ICU on 04/11 #Acute hypoxic hypercarbic respiratoyf failure due to hypOventilation syndrome, and Heart failure. He has significantly improved with management of heart failure and Nasal Bipap use. #Acute heart failure likely right heart failure--He was aggrexively diurese with IV diuertic drip and weight has come down to 35, and cumulative negativ 21 liters documented. Diuretics have been adjusted to oral Lasix 40 daily, aldactone 25 and Meolzone 2.5 mg daily with good effect. Additional had been started on Entresto was added in ICU. Now cardiology is recommending puttng hime back on high dose Torsemide at higher dose than home dose and Lisinopril (No Entresto), and Aldactone. No Metolazone/ Cumulatively has diuresse 38K # JOSE likely --Was due to Cardiorenal syndrome and has resolved. CR is stable #Hematuria--was due to traumatic BI has resolved. # hypertension--continue clonidine, Lisiniopril, and Aldactone # diabetes - patient reports poorly controlled diabetes -he uses U-500 insulin 175 units BID , but presently on SSI , [id number] -Increase Lantus to 15 # chronic pain--He uses buprenorphine (Belbuca) 600 mcg D79F--Ni has been changed to MS contine 15 Q8 #Hypothyroidism--continue levothyroxine #HLD on Pravastatin #Hypomagenesemia--replace with oral mag #Hypoventilation--CPAP/BiPAP dependent-He claims machine at home is broken, Pulmonary and Respiratory to assist in setting him for new machine. Respiratory and pulmonary to help to secure bipap at home, without bipap he will likely fail and come back DVT prophylaxis: Heparin PT eval
--- NOTE | 2020-04-16 12:46 | MHC.CM.PN ---
Per ROUNDS discussion, Patient needs news Cpap in order to go home; CM and MD have reached out to RT Director/Seun.(With Covid, the required sleep study prior to new Cpap may be very challenging. Creatinine had trended up/high dose of Torsemide. CM will follow for dc planning and possible need to adjust the dc plan.
[2020-04-16 16:42] LABS: CDIFF Ag Negative (Negative); CDIFF Internal ctrl Dots and bkg OK (V); CDiff Toxin Negative (Negative)
--- NOTE | 2020-04-16 16:50 | P.PNNP_ITS ---
Subjective Subjective Date of Service: 04/16/20 Principal diagnosis: Respiratory failure Interval history: Seen in f/u for heart failure exacerbation in setting of morbid obesity BMI 73. He decompensated on 04/08 with hypercapnia hypercabia, hypoxic respiratory eh lure and was transfered to ICU where he required aggresive diuresisis and > 30 ib and has been on bipap and overall seem to be doing much better. Gen: no fever Resp: less sob, no cough CV: no chest, marked leg LUNA still GI: No n/v, no abdominal pain Neuro: No confusion Physical Exam Vital Signs: Vital Signs: Last Vital Signs Temp 98.7 F 04/16/20 15:59 Pulse 70 04/16/20 15:59 Resp 20 04/16/20 15:59 BP 139/69 04/16/20 15:59 Pulse Ox 96 04/16/20 15:59 Body Mass Index 64.7 Const: General: cooperative Orientation/consciousness: patient oriented x3 Neck: Neck: Yes supple Resp: Auscultation: diminished lung sounds Cardio: Heart sounds: no rubs GI: Palpation (GI): Soft to palpation Neuro: General: patient oriented x3 Objective Data Labs CBC & Chem 7: 04/16/20 05:57 04/16/20 05:57 Labs: Laboratory Results - last 24 hr 04/13/20 04/15/20 04/16/20 06:08 19:54 05:57 WBC 2.9 L RBC 3.69 L Hgb 11.1 L Hct 36.0 L MCV 97.6 MCH 30.1 MCHC 30.8 L RDW 13.2 Plt Count 87 L MPV 10.8 Immature Gran % (Auto) 0.3 Neut % (Auto) 71.2 Lymph % (Auto) 16.8 L [place] % (Auto) 7.6 Eos % (Auto) 3.8 Baso % (Auto) 0.3 Lymph # (Auto) 0.5 L [place] # (Auto) 0.2 Eos # (Auto) 0.1 Baso # (Auto) 0.0 Abs Immat Gran (auto) 0.01 Absolute Neuts (auto) 2.1 Absolute Nucleated RBC 0.000 Nucleated RBC % (auto) 0.0 Smear Tech's Comments VERIFIED Smear Path Review SEE NOTE Sodium Potassium Chloride Carbon Dioxide Anion Gap BUN Creatinine Estim Creat Clear Calc Estimated GFR POC Glucose 294 H Random Glucose Calcium Phosphorus Magnesium C. difficile Toxin A&B C. difficile Antigen C. difficile Interpret 04/16/20 04/16/20 04/16/20 05:57 07:27 11:23 WBC RBC Hgb Hct MCV MCH MCHC RDW Plt Count MPV Immature Gran % (Auto) Neut % (Auto) Lymph % (Auto) [place] % (Auto) Eos % (Auto) Baso % (Auto) Lymph # (Auto) [place] # (Auto) Eos # (Auto) Baso # (Auto) Abs Immat Gran (auto) Absolute Neuts (auto) Absolute Nucleated RBC Nucleated RBC % (auto) Smear Tech's Comments Smear Path Review Sodium 141 Potassium 4.0 Chloride 93 L Carbon Dioxide 39 H Anion Gap 13 BUN 35 H Creatinine 1.51 H Estim Creat Clear Calc 97.8 Estimated GFR 49 POC Glucose 289 H 272 H Random Glucose 257 H Calcium 8.9 Phosphorus 4.7 H Magnesium 1.6 C. difficile Toxin A&B C. difficile Antigen C. difficile Interpret 04/16/20 Unknown WBC RBC Hgb Hct MCV MCH MCHC RDW Plt Count MPV Immature Gran % (Auto) Neut % (Auto) Lymph % (Auto) [place] % (Auto) Eos % (Auto) Baso % (Auto) Lymph # (Auto) [place] # (Auto) Eos # (Auto) Baso # (Auto) Abs Immat Gran (auto) Absolute Neuts (auto) Absolute Nucleated RBC Nucleated RBC % (auto) Smear Tech's Comments Smear Path Review Sodium Potassium Chloride Carbon Dioxide Anion Gap BUN Creatinine Estim Creat Clear Calc Estimated GFR POC Glucose Random Glucose Calcium Phosphorus Magnesium C. difficile Toxin A&B Negative C. difficile Antigen Negative C. difficile Interpret SEE NOTE Assessment & Plan Assessment and plan (1) JOSE (acute kidney injury): Problem details: JOSE due to CRS Volume status improved with diuresis Serum creatinine close to baseline Cardiology following closely Shall follow up Status: Acute Time Spent With Patient Time: Total time spent is greater than 50% in coordination of care (as documented) at patient's floor/unit and/or counseling patient:
[2020-04-16 16:53] LABS: Glucose, Whole Blood 285 mg/dL (60-115)
[2020-04-16] MEDS: Loperamide HCl 2 MG CAPSULE PO ×2 (17:06→21:56)
[2020-04-16 20:51] LABS: Glucose, Whole Blood 283 mg/dL (60-115)
[2020-04-16] MEDS: Topiramate 100 MG TABLET PO (21:50)
[2020-04-16] MEDS: Pravastatin Sodium 10 MG TABLET PO (21:51)
[2020-04-16] MEDS: Insulin Glargine,Hum.rec.anlog 100 UNIT/ML 10 ML VIAL 15 UNIT SUBCUT (21:53)
[2020-04-16] MEDS: traZODone HCL 50 MG TABLET PO (21:56)
[2020-04-16] MEDS: Melatonin 3 MG TABLET 6 MG PO (21:56)
[2020-04-16] MEDS: Morphine Sulfate Immed Release 15 MG TABLET PO (23:41)
[2020-04-17] VITALS (12 sets, daily range): BP systolic 112–155; BP diastolic 53–82; PULSE 73–88; RESP 12–22; TEMP 36.2–36.9; O2SAT 90–95; BMI 64.3
[2020-04-17] MEDS: Omeprazole 20 MG CAPSULE.DR PO ×2 (06:07→17:05)
[2020-04-17] MEDS: Levothyroxine Sodium 75 MCG TABLET 37.5 MCG PO (06:07)
[2020-04-17 07:15] LABS: Magnesium 1.7 mg/dL (1.6-2.6)
[2020-04-17 07:39] LABS: Glucose, Whole Blood 325 mg/dL (60-115)
[2020-04-17] MEDS: Spironolactone 25 MG TABLET PO (08:15)
[2020-04-17] MEDS: Heparin Sodium,Porcine 5,000 UNIT/ML VIAL 5000 UNIT SUBCUT ×2 (08:15→17:05)
[2020-04-17] MEDS: Insulin Lispro 100 UNIT/ML 3 ML VIAL SUBCUT ×4 (08:15→21:20)
[2020-04-17] MEDS: Cholecalciferol (Vitamin D3) 25 MCG TABLET PO (08:15)
[2020-04-17] MEDS: Pregabalin 50 MG CAPSULE PO (08:16)
[2020-04-17] MEDS: lisinopriL 10 MG TABLET PO (08:16)
[2020-04-17] MEDS: cloNIDine HCL 0.1 MG TABLET PO ×2 (08:16→21:21)
[2020-04-17] MEDS: Dicyclomine HCl 10 MG CAPSULE 20 MG PO ×4 (08:16→21:18)
[2020-04-17] MEDS: Torsemide 20 MG TABLET 80 MG PO (08:16)
[2020-04-17] MEDS: Aspirin Enteric Coated 81 MG TABLET.DR PO (08:16)
[2020-04-17] MEDS: 0.9 % Sodium Chloride Flush 3 ML SYRINGE IVFLUSH ×3 (08:17→21:21)
[2020-04-17] MEDS: Morphine Sulfate Immed Release 15 MG TABLET PO ×2 (08:24→21:19)
[2020-04-17 08:43] LABS: Base Excess ABG 9.6; HCO3 ABG 37 mmol/l (22-26); Oxygen Saturation ABG 82.7 %; PO2 ABG 51 mmhg (83-108); Pt Ventilation O2% ROOM AIR; pH ABG 7.38 (7.35-7.45)
[2020-04-17 08:50] LABS: ABG PCO2 64 mmhg (32-45)
--- NOTE | 2020-04-17 10:12 | PM.PNNEP ---
Subjective Subjective Date of Service: 04/17/20 Principal diagnosis: Respiratory failure Interval history: Seen in f/u for heart failure exacerbation in setting of morbid obesity BMI 73. He decompensated on 04/08 with hypercapnia hypercabia, hypoxic respiratory failure and was transfered to ICU where he required aggresive diuresisis and > 30 ib and has been on bipap and overall seem to be doing much better. Physical Exam Vital Signs: Vital Signs: Last Vital Signs Temp 97.2 F 04/17/20 07:54 Pulse 73 04/17/20 08:16 Resp 22 H 04/17/20 07:54 BP 112/53 L 04/17/20 08:16 Pulse Ox 93 04/17/20 07:54 Body Mass Index 64.3 Const: General: cooperative Orientation/consciousness: patient oriented x3 Neck: Neck: Yes supple Resp: Auscultation: diminished lung sounds Cardio: Heart sounds: no rubs GI: Palpation (GI): Soft to palpation Neuro: General: patient oriented x3 Objective Data Labs CBC & Chem 7: 04/16/20 05:57 04/16/20 05:57 Labs: Laboratory Results - last 24 hr 04/13/20 04/16/20 04/16/20 06:08 11:23 16:49 Smear Path Review SEE NOTE ABG pH ABG pCO2 ABG pO2 ABG HCO3 ABG O2 Saturation ABG Base Excess Oxygen Given POC Glucose 272 H 285 H Magnesium C. difficile Toxin A&B C. difficile Antigen C. difficile Interpret 04/16/20 04/16/20 04/17/20 20:48 Unknown 05:59 Smear Path Review ABG pH ABG pCO2 ABG pO2 ABG HCO3 ABG O2 Saturation ABG Base Excess Oxygen Given POC Glucose 283 H Magnesium 1.7 C. difficile Toxin A&B Negative C. difficile Antigen Negative C. difficile Interpret SEE NOTE 04/17/20 04/17/20 07:32 08:30 Smear Path Review ABG pH 7.38 ABG pCO2 64 H* ABG pO2 51 L ABG HCO3 37 H ABG O2 Saturation 82.7 ABG Base Excess 9.6 Oxygen Given ROOM AIR POC Glucose 325 H Magnesium C. difficile Toxin A&B C. difficile Antigen C. difficile Interpret Assessment & Plan Assessment and plan (1) JOSE (acute kidney injury): Problem details: JOSE due to CRS Volume status improved with diuresis Serum creatinine close to baseline Cardiology following closely If serum HCO3 goes over 40, shall give Diamox 500 mg one time dose Shall follow up Status: Acute Time Spent With Patient Time: Total time spent is greater than 50% in coordination of care (as documented) at patient's floor/unit and/or counseling patient:
--- NOTE | 2020-04-17 12:03 | HO.PM.IMPN ---
Subjective Subjective Date of Service: 04/17/20 Interval History: Seen in f/u for heart failure exacerbation in setting of morbid obesity BMI 73. He decompensated on 04/08 with hypercapnia hypercabia, hypoxic respiratory failure and was transfered to ICU where he required aggresive diuresisis and is down 88 ib and has been on bipap and overall seem much better. Gen: no fever Resp: less sob, no cough CV: no chest, marked leg LUNA still GI: No n/v, no abd pain Neuro: No confusion Physical Exam Vital Signs: Vital Signs: Last Vital Signs Temp 98.2 F 04/17/20 12:00 Pulse 80 04/17/20 12:00 Resp 20 04/17/20 12:00 BP 120/69 04/17/20 12:00 Pulse Ox 90 L 04/17/20 12:00 Body Mass Index 64.3 Const: Other: Constitutional Awake and Alert, Neck Supple, hard to tell if there is JVD Cardiovascular RRR, S1 S2, No S3 S4, 3+ pedal edema Respiratory Lungs diminish breath sounds Gastrointestinal Non tender, Non-distended Skin No rash, right BKA Neurological Alert & oriented x3 Psychological Appropriate affect Objective Data Current Medications Generic Name Dose Route Start Last Admin Trade Name Freq PRN Reason Stop Dose Admin Acetaminophen 650 mg 04/06/20 23:07 04/16/20 05:42 Acetaminophen 325 Mg Tablet PO 650 mg Q6H PRN Administration Pain, Mild (Pain Scale 1-3) Aspirin 81 mg 04/07/20 09:00 04/17/20 08:16 Aspirin Enteric Coated 81 Mg Tablet. PO 81 mg DAILY REGGIE Administration Calcium Carbonate 500 mg 04/07/20 09:00 04/17/20 08:16 Calcium Carbonate 500 Mg Tablet PO 500 mg DAILY REGGIE Administration Clonidine HCl 0.1 mg 04/06/20 23:07 04/17/20 08:16 Clonidine Hcl 0.1 Mg Tablet PO 0.1 mg BID REGGIE Administration Protocol Cyclobenzaprine HCl 5 mg 04/06/20 23:07 04/16/20 21:56 Cyclobenzaprine Hcl 5 Mg Tablet PO 5 mg TID PRN Administration Pain Dicyclomine HCl 20 mg 04/06/20 23:07 04/17/20 08:16 Dicyclomine Hcl 10 Mg Capsule PO 20 mg QID REGGIE Administration Docusate Sodium 100 mg 04/06/20 23:07 Docusate Sodium 100 Mg Capsule PO DAILY PRN Constipation Heparin Sodium (Porcine) 5,000 unit 04/07/20 00:00 04/17/20 08:15 Heparin Sodium,Porcine 5,000 Unit/Ml Vial SUBCUT 5,000 unit Q8H REGGIE Administration Insulin Glargine 15 unit 04/15/20 21:00 04/16/20 21:53 Insulin Glargine,Hum.Rec.Anlog 100 Unit/Ml 10 Ml Vial SUBCUT 15 unit BEDTIME REGGIE Administration Insulin Human Lispro 0 unit 04/07/20 07:30 04/17/20 08:15 Insulin Lispro 100 Unit/Ml 3 Ml Vial SUBCUT 8 unit QIDACHS [facility] Administration Protocol Levothyroxine Sodium 37.5 mcg 04/07/20 06:30 04/17/20 06:07 Levothyroxine Sodium 75 Mcg Tablet PO 37.5 mcg DAILY@0630 REGGIE Administration Lisinopril 10 mg 04/12/20 11:04 04/17/20 08:16 Lisinopril 10 Mg Tablet PO 10 mg DAILY REGGIE Administration Protocol Loperamide HCl 2 mg 04/16/20 16:52 04/16/20 21:56 Loperamide Hcl 2 Mg Capsule PO 2 mg Q6H PRN Administration Diarrhea Melatonin 6 mg 04/06/20 23:07 04/16/20 21:56 Melatonin 3 Mg Tablet PO 6 mg BEDTIME PRN Administration Sleep Morphine Sulfate 15 mg 04/15/20 14:54 04/17/20 08:24 Morphine Sulfate Immed Release 15 Mg Tablet PO 15 mg Q6H PRN Administration Pain, Mild (Pain Scale 1-3) Omeprazole 20 mg 04/06/20 23:07 04/17/20 06:07 Omeprazole 20 Mg Capsule. PO 20 mg BID@0630,1630 [facility] Administration Ondansetron HCl 4 mg 04/06/20 23:07 Ondansetron Hcl 4 Mg/2 Ml Vial IVPUSH Q8H PRN Nausea and Vomiting Pharmacy Consult 1 each 04/06/20 20:04 Consult Rx Perform Med Rec MISCELLANE ONCE PRN Consult order Pravastatin Sodium 10 mg 04/06/20 23:07 04/16/20 21:51 Pravastatin Sodium 10 Mg Tablet PO 10 mg BEDTIME REGGIE Administration Pregabalin 50 mg 04/09/20 09:00 04/17/20 08:16 Pregabalin 50 Mg Capsule PO 50 mg DAILY REGGIE Administration Sodium Chloride 3 ml 04/07/20 00:00 04/17/20 08:17 0.9 % Sodium Chloride Flush 3 Ml Syringe IVFLUSH 3 ml QSHIFT REGGIE Administration Spironolactone 25 mg 04/10/20 13:30 04/17/20 08:15 Spironolactone 25 Mg Tablet PO 25 mg DAILY REGGIE Administration Protocol Topiramate 100 mg 04/06/20 23:07 04/16/20 21:50 Topiramate 100 Mg Tablet PO 100 mg BEDTIME REGGIE Administration Torsemide 80 mg 04/13/20 09:00 04/17/20 08:16 Torsemide 20 Mg Tablet PO 80 mg DAILY REGGIE Administration Protocol Trazodone HCl 50 mg 04/06/20 23:07 04/16/20 21:56 Trazodone Hcl 50 Mg Tablet PO 50 mg BEDTIME PRN Administration Sleep Vitamin D 25 mcg 04/07/20 09:00 04/17/20 08:15 Cholecalciferol (Vitamin D3) 25 Mcg Tablet PO 25 mcg DAILY REGGIE Administration Labs CBC & Chem 7: 04/16/20 05:57 04/16/20 05:57 Assessment and Plan (1) JOSE (acute kidney injury): Problem details: JOSE due to CRS Volume status improved with diuresis Serum creatinine close to baseline Cardiology following closely If serum HCO3 goes over 40, shall give Diamox 500 mg one time dose Shall follow up Status: Acute Assessment and Plan: 49-year-old male super morbi obese BMI 73, DM, chronic right heart heart failure, HTN, chronic pain syndrome here with increasing SOB and totoal body fluid overload/likely right heart failure and JOSE..He decompensated on 04/08 with hypercapnia hypercabia, hypoxic respiratory failure and was transfered to ICU where he required aggresive diuresisis and > 88 ib or 40 Liters and has been on bipap and overall seem to be doing much better. Transfer out of ICU on 04/11 #Acute hypoxic hypercarbic respiratoyf failure due to hypOventilation syndrome, and Heart failure. He has significantly improved with management of heart failure and Nasal Bipap use. #Acute heart failure likely right heart failure--He was aggrexively diurese with IV diuertic drip and weight has come down to 35, and cumulative negativ 21 liters documented. Diuretics have been adjusted to oral Lasix 40 daily, aldactone 25 and Meolzone 2.5 mg daily with good effect. Additional had been started on Entresto was added in ICU. Now cardiology is recommending puttng himluigi back on high dose Torsemide at higher dose than home dose and Lisinopril (No Entresto), and Aldactone. No Metolazone/ Cumulatively has diuresse 40Liters which translate into 88Ib # JOSE onCKD likely --Was due to Cardiorenal syndrome and has resolved. CR is stable #Hematuria--was due to traumatic BI has resolved. 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 Respiratory and pulmonary to help to secure bipap at home, without bipap he will likely fail and come back. ABG this morning reviewed and showed retention of with high CO2.. Use BiPAP during the day as needed and definately at night. DVT prophylaxis: Heparin PT eval
[2020-04-17] MEDS: Cyclobenzaprine HCl 5 MG TABLET PO ×2 (12:36→21:19)
[2020-04-17 13:37] LABS: Glucose, Whole Blood 330 mg/dL (60-115)
[2020-04-17 17:00] LABS: Glucose, Whole Blood 310 mg/dL (60-115)
--- NOTE | 2020-04-17 18:44 | PC.NURSE ---
Pt able to make needs known, rings when needing assistance with repos. Upset that bed wasn't working, CCT in to fix bed, pt happy that it is fixed now. Pt tolerating cpap well over night. On NC satting well. Plan for DLCL test planned for morning. Have pt ready by 930 in chair for test to begin at 10am. Will pass on to next nurse, pt updated on plan.
[2020-04-17 20:56] LABS: Glucose, Whole Blood 316 mg/dL (60-115)
[2020-04-17] MEDS: Topiramate 100 MG TABLET PO (21:19)
[2020-04-17] MEDS: Pravastatin Sodium 10 MG TABLET PO (21:19)
[2020-04-17] MEDS: traZODone HCL 50 MG TABLET PO (21:19)
[2020-04-17] MEDS: Melatonin 3 MG TABLET 6 MG PO (21:19)
[2020-04-17] MEDS: Insulin Glargine,Hum.rec.anlog 100 UNIT/ML 10 ML VIAL 15 UNIT SUBCUT (21:20)
[2020-04-18] VITALS (11 sets, daily range): BP systolic 107–153; BP diastolic 52–67; PULSE 72–82; RESP 15–22; TEMP 36.4–37.2; O2SAT 88–96; BMI 64.9
[2020-04-18] MEDS: Heparin Sodium,Porcine 5,000 UNIT/ML VIAL 5000 UNIT SUBCUT ×4 (00:05→23:56)
[2020-04-18] MEDS: Levothyroxine Sodium 75 MCG TABLET 37.5 MCG PO (05:47)
[2020-04-18] MEDS: Omeprazole 20 MG CAPSULE.DR PO ×2 (05:47→16:34)
[2020-04-18 06:56] LABS: Anion Gap 15 (12-20); Blood Urea Nitrogen 44 mg/dL (9-16); Calcium 8.9 mg/dL (8.4-10.2); Carbon Dioxide 36 mmol/L (22-29); Chloride 91 mmol/L (96-108); Creatinine Clr Calc Pharmacy 83.2; Estimated Glomerular Filt Rate 41; Glucose Random 315 mg/dL (60-115); Sodium 138 mmol/L (135-145)
[2020-04-18 07:47] LABS: Glucose, Whole Blood 298 mg/dL (60-115)
[2020-04-18] MEDS: Torsemide 20 MG TABLET 80 MG PO (09:24)
[2020-04-18] MEDS: Dicyclomine HCl 10 MG CAPSULE 20 MG PO ×4 (09:24→20:52)
[2020-04-18] MEDS: lisinopriL 10 MG TABLET PO (09:25)
[2020-04-18] MEDS: Spironolactone 25 MG TABLET PO (09:25)
[2020-04-18] MEDS: Cholecalciferol (Vitamin D3) 25 MCG TABLET PO (09:25)
[2020-04-18] MEDS: Pregabalin 50 MG CAPSULE PO (09:25)
[2020-04-18] MEDS: 0.9 % Sodium Chloride Flush 3 ML SYRINGE IVFLUSH ×3 (09:26→22:37)
[2020-04-18] MEDS: cloNIDine HCL 0.1 MG TABLET PO ×2 (09:26→20:53)
[2020-04-18] MEDS: Insulin Lispro 100 UNIT/ML 3 ML VIAL SUBCUT ×4 (09:27→20:50)
[2020-04-18] MEDS: Aspirin Enteric Coated 81 MG TABLET.DR PO (09:28)
[2020-04-18] MEDS: Morphine Sulfate Immed Release 15 MG TABLET PO ×3 (09:28→22:36)
--- NOTE | 2020-04-18 10:25 | HO.PM.IMPN ---
Subjective Subjective Date of Service: 04/18/20 Interval History: Seen in f/u for heart failure exacerbation in setting of morbid obesity BMI 73. He decompensated on 04/08 with hypercapnia hypercabia, hypoxic respiratory failure and was transfered to ICU where he required aggresive diuresisis and is down 88 ib and has been on bipap and overall seem much better. Doing well, wants to go home as soon as possible once BiPAP is arranged at home. Gen: no fever Resp: less sob, no cough CV: no chest, marked leg LUNA still GI: No n/v, no abd pain Neuro: No confusion Physical Exam Vital Signs: Vital Signs: Last Vital Signs Temp 97.7 F 04/18/20 07:40 Pulse 80 04/18/20 09:55 Resp 22 H 04/18/20 08:22 BP 153/67 H 04/18/20 09:55 Pulse Ox 92 04/18/20 09:55 Body Mass Index 64.9 Const: Other: Constitutional Awake and Alert, Neck Supple, hard to tell if there is JVD Cardiovascular RRR, S1 S2, No S3 S4, 3+ pedal edema mostly lymphedema. Respiratory Lungs diminish breath sounds Gastrointestinal Non tender, Non-distended Skin No rash, right BKA Neurological Alert & oriented x3 Psychological Appropriate affect Objective Data Current Medications Generic Name Dose Route Start Last Admin Trade Name Almaz PRN Reason Stop Dose Admin Acetaminophen 650 mg 04/06/20 23:07 04/16/20 05:42 Acetaminophen 325 Mg Tablet PO 650 mg Q6H PRN Administration Pain, Mild (Pain Scale 1-3) Aspirin 81 mg 04/07/20 09:00 04/18/20 09:28 Aspirin Enteric Coated 81 Mg Tablet. PO 81 mg DAILY REGGIE Administration Calcium Carbonate 500 mg 04/07/20 09:00 04/18/20 09:25 Calcium Carbonate 500 Mg Tablet PO 500 mg DAILY REGGIE Administration Clonidine HCl 0.1 mg 04/06/20 23:07 04/18/20 09:26 Clonidine Hcl 0.1 Mg Tablet PO 0.1 mg BID REGGIE Administration Protocol Cyclobenzaprine HCl 5 mg 04/06/20 23:07 04/17/20 21:19 Cyclobenzaprine Hcl 5 Mg Tablet PO 5 mg TID PRN Administration Pain Dicyclomine HCl 20 mg 04/06/20 23:07 04/18/20 09:24 Dicyclomine Hcl 10 Mg Capsule PO 20 mg QID REGGIE Administration Docusate Sodium 100 mg 04/06/20 23:07 Docusate Sodium 100 Mg Capsule PO DAILY PRN Constipation Heparin Sodium (Porcine) 5,000 unit 04/07/20 00:00 04/18/20 09:26 Heparin Sodium,Porcine 5,000 Unit/Ml Vial SUBCUT 5,000 unit Q8H REGGIE Administration Insulin Glargine 15 unit 04/15/20 21:00 04/17/20 21:20 Insulin Glargine,Hum.Rec.Anlog 100 Unit/Ml 10 Ml Vial SUBCUT 15 unit BEDTIME REGGIE Administration Insulin Human Lispro 0 unit 04/07/20 07:30 04/18/20 09:27 Insulin Lispro 100 Unit/Ml 3 Ml Vial SUBCUT 6 unit QIDACHS [facility] Administration Protocol Levothyroxine Sodium 37.5 mcg 04/07/20 06:30 04/18/20 05:47 Levothyroxine Sodium 75 Mcg Tablet PO 37.5 mcg DAILY@0630 [facility] Administration Lisinopril 10 mg 04/12/20 11:04 04/18/20 09:25 Lisinopril 10 Mg Tablet PO 10 mg DAILY [facility] Administration Protocol Loperamide HCl 2 mg 04/16/20 16:52 04/16/20 21:56 Loperamide Hcl 2 Mg Capsule PO 2 mg Q6H PRN Administration Diarrhea Melatonin 6 mg 04/06/20 23:07 04/17/20 21:19 Melatonin 3 Mg Tablet PO 6 mg BEDTIME PRN Administration Sleep Morphine Sulfate 15 mg 04/15/20 14:54 04/18/20 09:28 Morphine Sulfate Immed Release 15 Mg Tablet PO 15 mg Q6H PRN Administration Pain, Mild (Pain Scale 1-3) Omeprazole 20 mg 04/06/20 23:07 04/18/20 05:47 Omeprazole 20 Mg Capsule. PO 20 mg BID@0630,1630 [facility] Administration Ondansetron HCl 4 mg 04/06/20 23:07 Ondansetron Hcl 4 Mg/2 Ml Vial IVPUSH Q8H PRN Nausea and Vomiting Pharmacy Consult 1 each 04/06/20 20:04 Consult Rx Perform Med Rec MISCELLANE ONCE PRN Consult order Pravastatin Sodium 10 mg 04/06/20 23:07 04/17/20 21:19 Pravastatin Sodium 10 Mg Tablet PO 10 mg BEDTIME REGGIE Administration Pregabalin 50 mg 04/09/20 09:00 04/18/20 09:25 Pregabalin 50 Mg Capsule PO 50 mg DAILY REGGIE Administration Sodium Chloride 3 ml 04/07/20 00:00 04/18/20 09:26 0.9 % Sodium Chloride Flush 3 Ml Syringe IVFLUSH 3 ml QSHIFT REGGIE Administration Spironolactone 25 mg 04/10/20 13:30 04/18/20 09:25 Spironolactone 25 Mg Tablet PO 25 mg DAILY REGGIE Administration Protocol Topiramate 100 mg 04/06/20 23:07 04/17/20 21:19 Topiramate 100 Mg Tablet PO 100 mg BEDTIME REGGIE Administration Torsemide 80 mg 04/13/20 09:00 04/18/20 09:24 Torsemide 20 Mg Tablet PO 80 mg DAILY REGGIE Administration Protocol Trazodone HCl 50 mg 04/06/20 23:07 04/17/20 21:19 Trazodone Hcl 50 Mg Tablet PO 50 mg BEDTIME PRN Administration Sleep Vitamin D 25 mcg 04/07/20 09:00 04/18/20 09:25 Cholecalciferol (Vitamin D3) 25 Mcg Tablet PO 25 mcg DAILY REGGIE Administration Labs CBC & Chem 7: 04/16/20 05:57 04/18/20 05:33 Assessment and Plan (1) JOSE (acute kidney injury): Problem details: JOSE due to CRS Volume status improved with diuresis Serum creatinine close to baseline Cardiology following closely If serum HCO3 goes over 40, shall give Diamox 500 mg one time dose Shall follow up Status: Acute Assessment and Plan: 49-year-old male super morbi obese BMI 73, DM, chronic right heart heart failure, HTN, chronic pain syndrome here with increasing SOB and totoal body fluid overload/likely right heart failure and JOSE..He decompensated on 04/08 with hypercapnia hypercabia, hypoxic respiratory failure and was transfered to ICU where he required aggresive diuresisis and > 88 ib or 40 Liters and has been on bipap and overall seem to be doing much better. Transfer out of ICU on 04/11 #Acute hypoxic hypercarbic respiratoyf failure due to hypOventilation syndrome, and Heart failure. He has significantly improved with management of heart failure and Nasal Bipap use. #Acute heart failure likely right heart failure--He was aggrexively diurese with IV diuertic drip and weight has come down to 35, and cumulative negativ 21 liters documented. Diuretics have been adjusted to oral Lasix 40 daily, aldactone 25 and Meolzone 2.5 mg daily with good effect. Additional had been started on Entresto was added in ICU. Now cardiology is recommending puttng hime back on high dose Torsemide at higher dose than home dose and Lisinopril (No Entresto), and Aldactone. No Metolazone/ Cumulatively has diuresse 43Liters which translate into 94 Ib # JOSE onCKD likely --Creatinine is going up likely from diuretic and marked negative fluid so will decrease Torsemide #Hematuria--was due to traumatic BI has resolved. # hypertension--continue clonidine, Lisiniopril, and Aldactone # diabetes - patient reports poorly controlled diabetes -he uses U-500 insulin 175 units BID , but presently on SSI , RYQ=346 -Increase Lantus to 20 bid # chronic pain--He uses buprenorphine (Belbuca) 600 mcg N08X--Sl has been changed to MS contine 15 Q8 #Hypothyroidism--continue levothyroxine #HLD on Pravastatin #Hypomagenesemia--replace with oral mag #Chronic respiratory failure likely due to combination Hypoventilation, heart failure and may have compoenent of reactive airway disease such as COPD as he tells me he used to be a chain smoker for many years until 5 years agao--he is BiPAP dependent-He claims machine at home is broken. Respiratory and pulmonary to help to secure bipap at home, without bipap he will likely fail and come back. ABG 04/17 reviewed and showed retention of with high CO2.. Use BiPAP during the day as needed and definately at night. Pulmonary is recommending DLCO hopefully today DVT prophylaxis: Heparin PT eval
[2020-04-18 11:44] LABS: Glucose, Whole Blood 340 mg/dL (60-115)
--- NOTE | 2020-04-18 11:52 | MHC.CM.PN ---
Per ROUNDS discussion, Patient will need Bipap to return home safely; RT Director continues to work diligently to get Bipap approved. CM will follow for dc planning and the possible need to adjust the dc plan.
--- NOTE | 2020-04-18 12:44 | PM.CCN ---
Critical Care Event Note Summary Code activated: No Narrative: Results of pulmonary function testing arterial blood gases reviewed - underlying COPD/emphysema with decreased diffusion capacity, also hyperventilation with hypercapnia as evidenced by elevated pCO2 on room air. Patient requires nocturnal BiPAP therapy. Critical Care Time (minutes): 0
[2020-04-18 16:06] LABS: Glucose, Whole Blood 356 mg/dL (60-115)
[2020-04-18 20:36] LABS: Glucose, Whole Blood 323 mg/dL (60-115)
[2020-04-18] MEDS: Insulin Glargine,Hum.rec.anlog 100 UNIT/ML 10 ML VIAL 25 UNIT SUBCUT (20:52)
[2020-04-18] MEDS: Melatonin 3 MG TABLET 6 MG PO (20:52)
[2020-04-18] MEDS: Cyclobenzaprine HCl 5 MG TABLET PO (20:53)
[2020-04-18] MEDS: traZODone HCL 50 MG TABLET PO (20:53)
[2020-04-18] MEDS: Pravastatin Sodium 10 MG TABLET PO (20:53)
[2020-04-18] MEDS: Topiramate 100 MG TABLET PO (20:54)
[2020-04-18] MEDS: Hydrocortisone 2.5 % Rectal Cr 30 GM TUBE 1 APPL PR (22:53)
[2020-04-19 00:17] VITALS: PULSE 93; RESP 12; O2SAT 80
[2020-04-19 03:01] VITALS: BP 111/55; PULSE 71; RESP 19; TEMP 36.8; O2SAT 91
[2020-04-19] MEDS: Acetaminophen 325 MG TABLET 650 MG PO (03:44)
[2020-04-19] MEDS: Omeprazole 20 MG CAPSULE.DR PO ×2 (06:31→17:07)
[2020-04-19] MEDS: Levothyroxine Sodium 75 MCG TABLET 37.5 MCG PO (06:31)
[2020-04-19 07:46] LABS: Glucose, Whole Blood 291 mg/dL (60-115)
[2020-04-19 07:59] VITALS: BP 140/64; PULSE 84; RESP 20; TEMP 36.9; O2SAT 95
[2020-04-19] MEDS: Insulin Lispro 100 UNIT/ML 3 ML VIAL SUBCUT ×4 (08:49→20:16)
[2020-04-19] MEDS: 0.9 % Sodium Chloride Flush 3 ML SYRINGE IVFLUSH ×2 (08:49→17:09)
[2020-04-19] MEDS: Spironolactone 25 MG TABLET PO (08:50)
[2020-04-19] MEDS: Torsemide 20 MG TABLET 60 MG PO (08:50)
[2020-04-19] MEDS: Dicyclomine HCl 10 MG CAPSULE 20 MG PO ×4 (08:50→20:15)
[2020-04-19] MEDS: Heparin Sodium,Porcine 5,000 UNIT/ML VIAL 5000 UNIT SUBCUT ×3 (08:50→23:58)
[2020-04-19] MEDS: Pregabalin 50 MG CAPSULE PO (08:50)
[2020-04-19] MEDS: lisinopriL 10 MG TABLET PO (08:51)
[2020-04-19] MEDS: Aspirin Enteric Coated 81 MG TABLET.DR PO (08:51)
[2020-04-19] MEDS: Cholecalciferol (Vitamin D3) 25 MCG TABLET PO (08:51)
[2020-04-19] MEDS: cloNIDine HCL 0.1 MG TABLET PO ×2 (08:51→20:15)
[2020-04-19] MEDS: Morphine Sulfate Immed Release 15 MG TABLET PO ×3 (09:02→23:08)
[2020-04-19 10:06] LABS: Anion Gap 14 (12-20); Blood Urea Nitrogen 55 mg/dL (9-16); Carbon Dioxide 37 mmol/L (22-29); Chloride 89 mmol/L (96-108); Creatinine Clr Calc Pharmacy 75.5; Estimated Glomerular Filt Rate 36; Glucose Random 339 mg/dL (60-115); Potassium 4.3 mmol/l (3.3-5.1); Sodium 136 mmol/L (135-145)
--- NOTE | 2020-04-19 10:51 | PM.PNNEP ---
Subjective Subjective Date of Service: 04/19/20 Principal diagnosis: Respiratory failure Interval history: Seen in f/u for heart failure exacerbation in setting of morbid obesity BMI 73. He decompensated on 04/08 with hypercapnia hypercabia, hypoxic respiratory failure and was transfered to ICU where he required aggresive diuresisis and is down 88 ib and has been on bipap and overall seem much better. Serum creatinine worse Gen: no fever Resp: less sob, no cough CV: no chest, marked leg LUNA still GI: No n/v, no abd pain Neuro: No confusion Physical Exam Vital Signs: Vital Signs: Last Vital Signs Temp 98.5 F 04/19/20 07:59 Pulse 84 04/19/20 07:59 Resp 20 04/19/20 07:59 BP 140/64 H 04/19/20 07:59 Pulse Ox 95 04/19/20 07:59 Body Mass Index 64.9 Const: General: comfortable Orientation/consciousness: patient oriented x3 Neck: Neck: Yes supple Resp: Auscultation: diminished lung sounds Cardio: Rate: regular rate GI: Palpation (GI): Soft to palpation Skin: General skin exam: no rashes or lesions noted Neuro: General: patient oriented x3 Objective Data Labs CBC & Chem 7: 04/16/20 05:57 04/19/20 09:03 Labs: Laboratory Results - last 24 hr 04/18/20 04/18/20 04/18/20 11:33 15:23 20:33 Sodium Potassium Chloride Carbon Dioxide Anion Gap BUN Creatinine Estim Creat Clear Calc Estimated GFR POC Glucose 340 H 356 H* 323 H Random Glucose Calcium 04/19/20 04/19/20 07:40 09:03 Sodium 136 Potassium 4.3 Chloride 89 L Carbon Dioxide 37 H Anion Gap 14 BUN 55 H Creatinine 1.96 H Estim Creat Clear Calc 75.5 Estimated GFR 36 POC Glucose 291 H Random Glucose 339 H Calcium 9.0 Assessment & Plan Assessment and plan (1) JOSE (acute kidney injury): Problem details: JOSE due to CRS Has CKD 3 at baseline Volume status improved with diuresis Serum creatinine above baseline Suggest reducing Torsemide to 40 mg daily Reduce lisinopril to 5 mg daily Labs AM; Shall follow up Status: Acute Time Spent With Patient Time: Total time spent is greater than 50% in coordination of care (as documented) at patient's floor/unit and/or counseling patient:
[2020-04-19 11:07] VITALS: BP 111/51; PULSE 82; RESP 20; TEMP 37.3; O2SAT 94
[2020-04-19 11:30] LABS: Glucose, Whole Blood 345 mg/dL (60-115)
--- NOTE | 2020-04-19 12:45 | P.PNIM_ITS ---
Subjective Subjective Date of Service: 04/19/20 Interval History: Seen in f/u for acute on chronic respiratory failure related to heart failure, COPD and hypoventilation in the setting of morbid obesity BMI 73. He decompensated on 04/08 with hypercapnia hypercabia, hypoxic respiratory failure and was transfered to ICU where he required aggresive diuresisis and Noninvasive ventilation with significant improvment. Doing well, wants to go home as soon as possible once non invasive ventilation is secured at home. Resp: less sob, no cough CV: no chest, marked leg LUNA still GI: No n/v, no abd pain Neuro: No confusion Physical Exam Vital Signs: Vital Signs: Last Vital Signs Temp 99.2 F 04/19/20 11:07 Pulse 82 04/19/20 11:07 Resp 20 04/19/20 11:07 BP 111/51 L 04/19/20 11:07 Pulse Ox 94 04/19/20 11:07 Body Mass Index 64.9 Const: Other: Constitutional Awake and Alert, Neck Supple, hard to tell if there is JVD Cardiovascular RRR, S1 S2, No S3 S4, 3+ pedal edema mostly lymphedema. Respiratory Lungs diminish breath sounds Gastrointestinal Non tender, Non-distended Skin No rash, right BKA Neurological Alert & oriented x3 Psychological Appropriate affect Objective Data Current Medications Generic Name Dose Route Start Last Admin Trade Name Almaz PRN Reason Stop Dose Admin Acetaminophen 650 mg 04/06/20 23:07 04/19/20 03:44 Acetaminophen 325 Mg Tablet PO 650 mg Q6H PRN Administration Pain, Mild (Pain Scale 1-3) Aspirin 81 mg 04/07/20 09:00 04/19/20 08:51 Aspirin Enteric Coated 81 Mg Tablet. PO 81 mg DAILY REGGIE Administration Calcium Carbonate 500 mg 04/07/20 09:00 04/19/20 08:50 Calcium Carbonate 500 Mg Tablet PO 500 mg DAILY REGGIE Administration Clonidine HCl 0.1 mg 04/06/20 23:07 04/19/20 08:51 Clonidine Hcl 0.1 Mg Tablet PO 0.1 mg BID REGGIE Administration Protocol Cyclobenzaprine HCl 5 mg 04/06/20 23:07 04/18/20 20:53 Cyclobenzaprine Hcl 5 Mg Tablet PO 5 mg TID PRN Administration Pain Dicyclomine HCl 20 mg 04/06/20 23:07 04/19/20 12:24 Dicyclomine Hcl 10 Mg Capsule PO 20 mg QID REGGIE Administration Docusate Sodium 100 mg 04/06/20 23:07 Docusate Sodium 100 Mg Capsule PO DAILY PRN Constipation Heparin Sodium (Porcine) 5,000 unit 04/07/20 00:00 04/19/20 08:50 Heparin Sodium,Porcine 5,000 Unit/Ml Vial SUBCUT 5,000 unit Q8H REGGIE Administration Hydrocortisone 1 appl 04/19/20 21:00 04/18/20 22:53 Hydrocortisone 2.5 % Rectal Cr 30 Gm Tube IA 1 appl BEDTIME REGGIE Administration Insulin Glargine 25 unit 04/18/20 21:00 04/18/20 20:52 Insulin Glargine,Hum.Rec.Anlog 100 Unit/Ml 10 Ml Vial SUBCUT 25 unit BEDTIME REGGIE Administration Insulin Human Lispro 0 unit 04/07/20 07:30 04/19/20 12:24 Insulin Lispro 100 Unit/Ml 3 Ml Vial SUBCUT 8 unit QIDACHS [facility] Administration Protocol Levothyroxine Sodium 37.5 mcg 04/07/20 06:30 04/19/20 06:31 Levothyroxine Sodium 75 Mcg Tablet PO 37.5 mcg DAILY@0630 [facility] Administration Lisinopril 10 mg 04/12/20 11:04 04/19/20 08:51 Lisinopril 10 Mg Tablet PO 10 mg DAILY REGGIE Administration Protocol Loperamide HCl 2 mg 04/16/20 16:52 04/16/20 21:56 Loperamide Hcl 2 Mg Capsule PO 2 mg Q6H PRN Administration Diarrhea Melatonin 6 mg 04/06/20 23:07 04/18/20 20:52 Melatonin 3 Mg Tablet PO 6 mg BEDTIME PRN Administration Sleep Morphine Sulfate 15 mg 04/15/20 14:54 04/19/20 09:02 Morphine Sulfate Immed Release 15 Mg Tablet PO 15 mg Q6H PRN Administration Pain, Mild (Pain Scale 1-3) Omeprazole 20 mg 04/06/20 23:07 04/19/20 06:31 Omeprazole 20 Mg Capsule. PO 20 mg BID@0630,1630 REGGIE Administration Ondansetron HCl 4 mg 04/06/20 23:07 Ondansetron Hcl 4 Mg/2 Ml Vial IVPUSH Q8H PRN Nausea and Vomiting Pharmacy Consult 1 each 04/06/20 20:04 Consult Rx Perform Med Rec MISCELLANE ONCE PRN Consult order Pravastatin Sodium 10 mg 04/06/20 23:07 04/18/20 20:53 Pravastatin Sodium 10 Mg Tablet PO 10 mg BEDTIME REGGIE Administration Pregabalin 50 mg 04/09/20 09:00 04/19/20 08:50 Pregabalin 50 Mg Capsule PO 50 mg DAILY REGGIE Administration Sodium Chloride 3 ml 04/07/20 00:00 04/19/20 08:49 0.9 % Sodium Chloride Flush 3 Ml Syringe IVFLUSH 3 ml QSHIFT REGGIE Administration Spironolactone 25 mg 04/10/20 13:30 04/19/20 08:50 Spironolactone 25 Mg Tablet PO 25 mg DAILY REGGIE Administration Protocol Topiramate 100 mg 04/06/20 23:07 04/18/20 20:54 Topiramate 100 Mg Tablet PO 100 mg BEDTIME REGGIE Administration Torsemide 60 mg 04/19/20 09:00 04/19/20 08:50 Torsemide 20 Mg Tablet PO 60 mg DAILY REGGIE Administration Protocol Trazodone HCl 50 mg 04/06/20 23:07 04/18/20 20:53 Trazodone Hcl 50 Mg Tablet PO 50 mg BEDTIME PRN Administration Sleep Vitamin D 25 mcg 04/07/20 09:00 04/19/20 08:51 Cholecalciferol (Vitamin D3) 25 Mcg Tablet PO 25 mcg DAILY REGGIE Administration Labs CBC & Chem 7: 04/16/20 05:57 04/19/20 09:03 Assessment and Plan (1) JOSE (acute kidney injury): Problem details: JOSE due to CRS Has CKD 3 at baseline Volume status improved with diuresis Serum creatinine above baseline Suggest reducing Torsemide to 40 mg daily Reduce lisinopril to 5 mg daily Labs AM; Shall follow up Status: Acute Assessment and Plan: 49-year-old male super morbi obese BMI 73, DM, chronic right heart heart failure, HTN, chronic pain syndrome here with increasing SOB and totoal body fluid overload/likely right heart failure and JOSE..He decompensated on 04/08 with hypercapnia hypercabia, hypoxic respiratory failure and was transfered to ICU where he required aggresive diuresisis and > 88 ib or 40 Liters and has been on non-invasive ventilation with significant improvment. Transfer out of ICU on 04/11 and continue to need Non invasive ventilation as needed during the day and scheduled for night #Acute on chronic hypoxic hypercarbic respiratoyf failure due to COPD with compenent of hypoventilation syndrome, and Heart failure. He has significantly improved with management of heart failure and Non invasive ventilation for chronic obstructive pulmonary disease. He was a chain smoker until 5 years ago which works in his favor. #Acute heart failure likely right heart failure--He has been aggressively diuresed with IV diuertic drip and weight has come down to significantly, and cumulatively is negative negative 44 liters as of today which translate into 94 Ib. He is presently on Torsemide 80 mg, Aldactone 25, and Lasix. Torsemide is being reduced due to worsening renal function. # JOSE onCKD likely cardiorenal syndrome --Creatinine has gone up today, so will decrease Torsemide further down to 40 and decrease Lisinopril to 5 #Hematuria--was due to traumatic BI has resolved. # hypertension--continue clonidine, Lisiniopril, and Aldactone # diabetes - patient reports poorly controlled diabetes -he uses U-500 insulin 175 units BID , but presently on SSI , TGU=707 -Increase Lantus to 20 bid # chronic pain--He uses buprenorphine (Belbuca) 600 mcg X62L--Au has been changed to MS contine 15 Q8 #Hypothyroidism--continue levothyroxine #HLD on Pravastatin #Hypomagenesemia--replace with oral mag #Acute on Chronic respiratory failure likely due to combination COPD, with compoenent of heart failure and hypoventilation. Patient will need non invasive ventilator at home to help with gas exchage, quality of life and prevent readmission.
[2020-04-19 15:10] VITALS: BP 134/61; PULSE 80; RESP 19; TEMP 36.6; O2SAT 93
[2020-04-19 16:10] LABS: Glucose, Whole Blood 337 mg/dL (60-115)
[2020-04-19 19:11] VITALS: BP 117/58; PULSE 82; RESP 19; TEMP 36.3; O2SAT 95
[2020-04-19 19:35] LABS: Glucose, Whole Blood 327 mg/dL (60-115)
[2020-04-19] MEDS: Topiramate 100 MG TABLET PO (20:15)
[2020-04-19] MEDS: Pravastatin Sodium 10 MG TABLET PO (20:15)
[2020-04-19] MEDS: Insulin Glargine,Hum.rec.anlog 100 UNIT/ML 10 ML VIAL 25 UNIT SUBCUT (20:16)
[2020-04-19] MEDS: Hydrocortisone 2.5 % Rectal Cr 30 GM TUBE 1 APPL PR (20:18)
[2020-04-19] MEDS: Melatonin 3 MG TABLET 6 MG PO (23:08)
[2020-04-19] MEDS: Cyclobenzaprine HCl 5 MG TABLET PO (23:08)
[2020-04-19] MEDS: traZODone HCL 50 MG TABLET PO (23:08)
[2020-04-20] VITALS (8 sets, daily range): BP systolic 130–148; BP diastolic 61–98; PULSE 80–92; RESP 16–20; TEMP 36.3–37.7; O2SAT 87–96; BMI 63.3
[2020-04-20] MEDS: Omeprazole 20 MG CAPSULE.DR PO ×2 (06:07→15:45)
[2020-04-20] MEDS: Levothyroxine Sodium 75 MCG TABLET 37.5 MCG PO (06:07)
[2020-04-20 07:51] LABS: Glucose, Whole Blood 342 mg/dL (60-115)
[2020-04-20] MEDS: Insulin Lispro 100 UNIT/ML 3 ML VIAL SUBCUT ×4 (08:11→22:26)
[2020-04-20] MEDS: 0.9 % Sodium Chloride Flush 3 ML SYRINGE IVFLUSH ×3 (08:12→23:47)
[2020-04-20] MEDS: Heparin Sodium,Porcine 5,000 UNIT/ML VIAL 5000 UNIT SUBCUT ×3 (09:29→23:51)
[2020-04-20] MEDS: Morphine Sulfate Immed Release 15 MG TABLET PO ×3 (09:29→22:26)
[2020-04-20] MEDS: Dicyclomine HCl 10 MG CAPSULE 20 MG PO ×4 (09:29→22:26)
[2020-04-20] MEDS: Cholecalciferol (Vitamin D3) 25 MCG TABLET PO (09:30)
[2020-04-20] MEDS: Aspirin Enteric Coated 81 MG TABLET.DR PO (09:30)
[2020-04-20] MEDS: Pregabalin 50 MG CAPSULE PO (09:30)
[2020-04-20 11:46] LABS: Glucose, Whole Blood 427 mg/dL (60-115)
--- NOTE | 2020-04-20 12:25 | P.PNNP_ITS ---
Subjective Subjective Date of Service: 04/20/20 Principal diagnosis: Respiratory failure Interval history: Seen in f/u for acute on chronic respiratory failure related to heart failure, COPD and hypoventilation in the setting of morbid obesity BMI 73. He decompensa luz on 04/08 with hypercapnia hypercabia, hypoxic respiratory failure and was transfered to ICU where he required aggresive diuresisis and Noninvasive ventilation with significant improvment. Doing well. Physical Exam Vital Signs: Vital Signs: Last Vital Signs Temp 99.0 F 04/20/20 12:00 Pulse 83 04/20/20 12:00 Resp 20 04/20/20 12:00 BP 134/68 04/20/20 12:00 Pulse Ox 94 04/20/20 12:00 Body Mass Index 63.3 Const: General: comfortable Orientation/consciousness: patient oriented x3 Neck: Neck: Yes supple Resp: Auscultation: diminished lung sounds Cardio: Rate: regular rate GI: Palpation (GI): Soft to palpation Neuro: General: patient oriented x3 Objective Data Labs CBC & Chem 7: 04/16/20 05:57 04/19/20 09:03 Labs: Laboratory Results - last 24 hr 04/19/20 04/19/20 04/20/20 16:00 19:31 07:34 POC Glucose 337 H 327 H 342 H 04/20/20 11:41 POC Glucose 427 H* Assessment & Plan Assessment and plan (1) JOSE (acute kidney injury): Problem details: JOSE due to CRS Has CKD 3 at baseline Volume status improved with diuresis Serum creatinine above baseline; Needs F/U labs Reduced Torsemide to 40 mg daily Reduced lisinopril to 5 mg daily Shall arrange office follow up when D/Moshe Status: Acute Time Spent With Patient Time: Total time spent is greater than 50% in coordination of care (as documented) at patient's floor/unit and/or counseling patient:
[2020-04-20 12:52] LABS: Anion Gap 13 (12-20); Blood Urea Nitrogen 58 mg/dL (9-16); Calcium 9.2 mg/dL (8.4-10.2); Carbon Dioxide 37 mmol/L (22-29); Chloride 92 mmol/L (96-108); Creatinine Clr Calc Pharmacy 84.7; Estimated Glomerular Filt Rate 42; Glucose Random 420 mg/dL (60-115); Potassium 4.9 mmol/l (3.3-5.1); Sodium 137 mmol/L (135-145)
[2020-04-20] MEDS: cloNIDine HCL 0.1 MG TABLET PO ×2 (14:14→22:26)
[2020-04-20] MEDS: Spironolactone 25 MG TABLET PO (14:15)
--- NOTE | 2020-04-20 14:21 | MHC.CM.PN ---
Goal for dc- home 04/20/20, via [facility] (July has [facility]/just tell her time of dc). [facility] will deliver new Bipap here later today(do not deliver on Saturdays). IMM addressed with Patient today and original has been given to him and a copy has been placed on the chart.Patient is eager to go home.
--- NOTE | 2020-04-20 15:39 | HO.PM.IMPN ---
Subjective Subjective Date of Service: 04/21/20 Interval History: Seen in f/u for acute on chronic respiratory failure related to heart failure, COPD and hypoventilation in the setting of morbid obesity BMI 73. He decompensated on 04/08 with hypercapnia hypercabia, hypoxic respiratory failure and was transfered to ICU where he required aggresive diuresisis and Noninvasive ventilation with significant improvment. Doing well, wants to go home as soon as possible once non invasive ventilation is secured at home. Resp: less sob, no cough CV: no chest, marked leg LUNA still GI: No n/v, no abd pain Neuro: No confusion Physical Exam Vital Signs: Vital Signs: Last Vital Signs Temp 99.0 F 04/20/20 12:00 Pulse 83 04/20/20 12:00 Resp 20 04/20/20 12:00 BP 134/68 04/20/20 12:00 Pulse Ox 94 04/20/20 12:00 Body Mass Index 63.3 Const: Other: Constitutional Awake and Alert, Neck Supple, hard to tell if there is JVD Cardiovascular RRR, S1 S2, No S3 S4, 3+ pedal edema mostly lymphedema. Respiratory Lungs diminish breath sounds Gastrointestinal Non tender, Non-distended Skin No rash, right BKA Neurological Alert & oriented x3 Psychological Appropriate affect Objective Data Current Medications Generic Name Dose Route Start Last Admin Trade Name Almaz PRN Reason Stop Dose Admin Acetaminophen 650 mg 04/06/20 23:07 04/19/20 03:44 Acetaminophen 325 Mg Tablet PO 650 mg Q6H PRN Administration Pain, Mild (Pain Scale 1-3) Aspirin 81 mg 04/07/20 09:00 04/20/20 09:30 Aspirin Enteric Coated 81 Mg Tablet. PO 81 mg DAILY REGGIE Administration Calcium Carbonate 500 mg 04/07/20 09:00 04/20/20 09:29 Calcium Carbonate 500 Mg Tablet PO 500 mg DAILY REGGIE Administration Clonidine HCl 0.1 mg 04/06/20 23:07 04/20/20 14:14 Clonidine Hcl 0.1 Mg Tablet PO 0.1 mg BID REGGIE Administration Protocol Cyclobenzaprine HCl 5 mg 04/06/20 23:07 04/19/20 23:08 Cyclobenzaprine Hcl 5 Mg Tablet PO 5 mg TID PRN Administration Pain Dicyclomine HCl 20 mg 04/06/20 23:07 04/20/20 14:15 Dicyclomine Hcl 10 Mg Capsule PO 20 mg QID REGGIE Administration Docusate Sodium 100 mg 04/06/20 23:07 Docusate Sodium 100 Mg Capsule PO DAILY PRN Constipation Heparin Sodium (Porcine) 5,000 unit 04/07/20 00:00 04/20/20 09:29 Heparin Sodium,Porcine 5,000 Unit/Ml Vial SUBCUT 5,000 unit Q8H REGGIE Administration Hydrocortisone 1 appl 04/19/20 21:00 04/19/20 20:18 Hydrocortisone 2.5 % Rectal Cr 30 Gm Tube OR 1 appl BEDTIME REGGIE Administration Insulin Glargine 25 unit 04/18/20 21:00 04/19/20 20:16 Insulin Glargine,Hum.Rec.Anlog 100 Unit/Ml 10 Ml Vial SUBCUT 25 unit BEDTIME [facility] Administration Insulin Human Lispro 0 unit 04/07/20 07:30 04/20/20 12:19 Insulin Lispro 100 Unit/Ml 3 Ml Vial SUBCUT 10 unit QIDACHS [facility] Administration Protocol Levothyroxine Sodium 37.5 mcg 04/07/20 06:30 04/20/20 06:07 Levothyroxine Sodium 75 Mcg Tablet PO 37.5 mcg DAILY@0630 [facility] Administration Lisinopril 5 mg 04/20/20 09:00 04/20/20 14:15 Lisinopril 5 Mg Tablet PO Not Given DAILY [facility] Protocol Loperamide HCl 2 mg 04/16/20 16:52 04/16/20 21:56 Loperamide Hcl 2 Mg Capsule PO 2 mg Q6H PRN Administration Diarrhea Melatonin 6 mg 04/06/20 23:07 04/19/20 23:08 Melatonin 3 Mg Tablet PO 6 mg BEDTIME PRN Administration Sleep Morphine Sulfate 15 mg 04/20/20 15:27 Morphine Sulfate Immed Release 15 Mg Tablet PO Q6H PRN Pain, Mild (Pain Scale 1-3) Omeprazole 20 mg 04/06/20 23:07 04/20/20 06:07 Omeprazole 20 Mg Capsule. PO 20 mg BID@0630,1630 [facility] Administration Ondansetron HCl 4 mg 04/06/20 23:07 Ondansetron Hcl 4 Mg/2 Ml Vial IVPUSH Q8H PRN Nausea and Vomiting Pharmacy Consult 1 each 04/06/20 20:04 Consult Rx Perform Med Rec MISCELLANE ONCE PRN Consult order Pravastatin Sodium 10 mg 04/06/20 23:07 04/19/20 20:15 Pravastatin Sodium 10 Mg Tablet PO 10 mg BEDTIME REGGIE Administration Pregabalin 50 mg 04/09/20 09:00 04/20/20 09:30 Pregabalin 50 Mg Capsule PO 50 mg DAILY REGGIE Administration Sodium Chloride 3 ml 04/07/20 00:00 04/20/20 08:12 0.9 % Sodium Chloride Flush 3 Ml Syringe IVFLUSH 3 ml QSHIFT REGGIE Administration Spironolactone 25 mg 04/10/20 13:30 04/20/20 14:15 Spironolactone 25 Mg Tablet PO 25 mg DAILY REGGIE Administration Protocol Topiramate 100 mg 04/06/20 23:07 04/19/20 20:15 Topiramate 100 Mg Tablet PO 100 mg BEDTIME REGGIE Administration Torsemide 40 mg 04/20/20 09:00 04/20/20 14:15 Torsemide 20 Mg Tablet PO Not Given DAILY REGGIE Protocol Trazodone HCl 50 mg 04/06/20 23:07 04/19/20 23:08 Trazodone Hcl 50 Mg Tablet PO 50 mg BEDTIME PRN Administration Sleep Vitamin D 25 mcg 04/07/20 09:00 04/20/20 09:30 Cholecalciferol (Vitamin D3) 25 Mcg Tablet PO 25 mcg DAILY REGGIE Administration Labs CBC & Chem 7: 04/16/20 05:57 04/21/20 05:37 Assessment and Plan (1) JOSE (acute kidney injury): Problem details: His creat has risen largely due to the addition of JEANINE I. But would continue lisinopril to treat nephrotic proteinuria, diabetic kidney disease. Will need f/u labs in 1 week including K and creat Status: Acute Assessment and Plan: 49-year-old male super morbi obese BMI 73, DM, chronic right heart heart failure, HTN, chronic pain syndrome here with increasing SOB and totoal body fluid overload/likely right heart failure and JOSE..He decompensated on 04/08 with hypercapnia hypercabia, hypoxic respiratory failure and was transfered to ICU where he required aggresive diuresisis and > 88 ib or 40 Liters and has been on non-invasive ventilation with significant improvment. Transfer out of ICU on 04/11 and continue to need Non invasive ventilation as needed during the day and scheduled for night #Acute on chronic hypoxic hypercarbic respiratoyf failure due to COPD with compenent of hypoventilation syndrome, and Heart failure. He has significantly improved with management of heart failure and Non invasive ventilation for chronic obstructive pulmonary disease. He was a chain smoker until 5 years ago which works in his favor. #Acute heart failure likely right heart failure--He has been aggressively diuresed with IV diuertic drip and weight has come down to significantly, and cumulatively is negative negative 44 liters as of today which translate into 94 Ib. He is presently on Torsemide 80 mg, Aldactone 25, and Lasix. Torsemide is being reduced due to worsening renal function. # JOSE onCKD likely cardiorenal syndrome --Creatinine is better today, hold Torsemide today #Hematuria--was due to traumatic BI has resolved. # hypertension--continue clonidine, Lisiniopril, and Aldactone # diabetes - patient reports poorly controlled diabetes -he uses U-500 insulin 175 units BID , but presently on SSI , HSS=722 -Lantus to 300 bid # chronic pain--He uses buprenorphine (Belbuca) 600 mcg D36G--Ut has been changed to MS contine 15 Q8 #Hypothyroidism--continue levothyroxine #HLD on Pravastatin #Hypomagenesemia--replace with oral mag #Acute on Chronic respiratory failure likely due to combination COPD, with compoenent of heart failure and hypoventilation. Patient will need non invasive ventilator at home to help with gas exchage, quality of life and prevent readmission. Plan for home tomorrow
[2020-04-20 16:37] LABS: Glucose, Whole Blood 381 mg/dL (60-115)
[2020-04-20] MEDS: Insulin Lispro 100 UNIT/ML 3 ML VIAL 8 UNIT SUBCUT (16:55)
[2020-04-20 20:51] LABS: Glucose, Whole Blood 356 mg/dL (60-115)
[2020-04-20] MEDS: Pravastatin Sodium 10 MG TABLET PO (22:25)
[2020-04-20] MEDS: Cyclobenzaprine HCl 5 MG TABLET PO (22:25)
[2020-04-20] MEDS: traZODone HCL 50 MG TABLET PO (22:25)
[2020-04-20] MEDS: Melatonin 3 MG TABLET 6 MG PO (22:26)
[2020-04-20] MEDS: Topiramate 100 MG TABLET PO (22:26)
[2020-04-20] MEDS: Insulin Glargine,Hum.rec.anlog 100 UNIT/ML 10 ML VIAL 35 UNIT SUBCUT (22:27)
[2020-04-21 00:43] VITALS: PULSE 84; RESP 18; O2SAT 93
[2020-04-21 03:31] VITALS: BP 110/52; PULSE 80; RESP 18; TEMP 36.4; O2SAT 92
[2020-04-21] MEDS: Levothyroxine Sodium 75 MCG TABLET 37.5 MCG PO (05:42)
[2020-04-21] MEDS: Omeprazole 20 MG CAPSULE.DR PO ×2 (05:42→16:56)
[2020-04-21 07:59] LABS: Glucose, Whole Blood 381 mg/dL (60-115)
[2020-04-21 08:00] VITALS: BP 134/63; PULSE 82; RESP 20; TEMP 36.4; O2SAT 97
[2020-04-21 08:07] LABS: Anion Gap 13 (12-20); Blood Urea Nitrogen 63 mg/dL (9-16); Calcium 8.8 mg/dL (8.4-10.2); Carbon Dioxide 35 mmol/L (22-29); Chloride 91 mmol/L (96-108); Creatinine Clr Calc Pharmacy 75.1; Estimated Glomerular Filt Rate 37; Glucose Random 377 mg/dL (60-115); Potassium 4.4 mmol/l (3.3-5.1); Sodium 135 mmol/L (135-145)
[2020-04-21 08:32] VITALS: BP 134/63; PULSE 82
[2020-04-21] MEDS: Dicyclomine HCl 10 MG CAPSULE 20 MG PO ×3 (08:32→16:56)
[2020-04-21] MEDS: Torsemide 20 MG TABLET 40 MG PO (08:32)
[2020-04-21] MEDS: lisinopriL 5 MG TABLET PO (08:32)
[2020-04-21 08:33] VITALS: BP 134/63; PULSE 82
[2020-04-21] MEDS: Insulin Lispro 100 UNIT/ML 3 ML VIAL 8 UNIT SUBCUT ×3 (08:33→16:56)
[2020-04-21] MEDS: cloNIDine HCL 0.1 MG TABLET PO (08:33)
[2020-04-21] MEDS: Aspirin Enteric Coated 81 MG TABLET.DR PO (08:33)
[2020-04-21] MEDS: Cholecalciferol (Vitamin D3) 25 MCG TABLET PO (08:33)
[2020-04-21] MEDS: Spironolactone 25 MG TABLET PO (08:33)
[2020-04-21] MEDS: Pregabalin 50 MG CAPSULE PO (08:33)
[2020-04-21] MEDS: Heparin Sodium,Porcine 5,000 UNIT/ML VIAL 5000 UNIT SUBCUT ×2 (08:34→16:57)
[2020-04-21] MEDS: 0.9 % Sodium Chloride Flush 3 ML SYRINGE IVFLUSH (08:34)
[2020-04-21] MEDS: Insulin Lispro 100 UNIT/ML 3 ML VIAL SUBCUT ×4 (08:35→16:56)
[2020-04-21 11:20] LABS: Glucose, Whole Blood 373 mg/dL (60-115)
[2020-04-21 12:00] VITALS: BP 148/53; PULSE 96; RESP 20; TEMP 36.9; O2SAT 96
[2020-04-21] MEDS: Morphine Sulfate Immed Release 15 MG TABLET PO (14:18)
[2020-04-21] MEDS: Loperamide HCl 2 MG CAPSULE PO (14:18)
--- NOTE | 2020-04-21 15:41 | MHC.CM.PN ---
Addendum entered by Ann Kiser 04/21/20 16:36: DC SUMMARY SENT TO [facility]IA [employer] AND THEY WILL RESUME SERVICES TOMORROW 04/22/20 Original Note: CM met with pt to discuss DC planning. Pt reports he has spoken to his [employer] agency and they will be ready to resume services as early as 1600 hours. Pt reports he will need BLS transport home. CM has alerted [facility] of pts DC and BLS transport is scheduled for 1700 hours. PT, nurse, and home care providers aware of DC.
--- NOTE | 2020-04-21 15:45 | PM.PNNEP ---
Subjective Subjective Date of Service: 04/21/20 Interval history: Seen in f/u for acute on chronic kidney disease. Creat up to 1.9; has nephrotic proteinuria Resp: less sob, no cough CV: no chest, marked leg LUNA still GI: No n/v, no abd pain Neuro: No confusion Physical Exam Vital Signs: Vital Signs: Last Vital Signs Temp 98.5 F 04/21/20 12:00 Pulse 96 04/21/20 12:00 Resp 20 04/21/20 12:00 BP 148/53 H 04/21/20 12:00 Pulse Ox 96 04/21/20 12:00 Body Mass Index 63.3 Const: General: cooperative, alert and awake Nutritional Appearance: obese Orientation/consciousness: patient oriented x3 Limitations: wheelchair Eyes: General: appearance normal, both eyes and all related structures Neck: Neck: Yes normal visual inspection Thyroid: Thyroid normal and diffusely enlarged Resp: Effort & Inspection: normal respiratory effort, able to speak in complete sentences and symmetric chest movement Auscultation: clear to auscultation bilaterally Cardio: Jugular venous distension: no JVD Palpation: normal PMI Rhythm: regular rhythm Heart sounds: S1 normal heart sound present and S2 normal heart sound present GI: Inspection: Yes Abdominal panniculus present and Yes obesity Percussion: Yes normal to percussion Auscultation: normal bowel sounds Neuro: General: patient oriented x3 Extrem: Other: R AKA; LLE with chronic venous stasis changes and edema Objective Data Labs CBC & Chem 7: 04/16/20 05:57 04/21/20 05:37 Labs: Laboratory Results - last 24 hr 04/20/20 04/20/20 04/21/20 16:25 20:33 05:37 Sodium 135 Potassium 4.4 Chloride 91 L Carbon Dioxide 35 H Anion Gap 13 BUN 63 H Creatinine 1.94 H Estim Creat Clear Calc 75.1 Estimated GFR 37 POC Glucose 381 H* 356 H* Random Glucose 377 H* Calcium 8.8 04/21/20 04/21/20 07:48 11:16 Sodium Potassium Chloride Carbon Dioxide Anion Gap BUN Creatinine Estim Creat Clear Calc Estimated GFR POC Glucose 381 H* 373 H* Random Glucose Calcium Assessment & Plan Assessment and plan (1) Diabetes mellitus: Problem details: DM poorly controlled; remains hyperglycemic now Status: Acute (2) JOSE (acute kidney injury): Problem details: His creat has risen largely due to the addition of JEANINE I. But would continue lisinopril to treat nephrotic proteinuria, diabetic kidney disease. Will need f/u labs in 1 week including K and creat Status: Acute (3) Chronic kidney disease (CKD) stage G3b/A3, moderately decreased glomerular filtration rate (GFR) between 30-44 mL/min/1.73 square meter and albuminuria creatinine ratio greater than 300 mg/g: Problem details: Diabetic nephropathy with nephrotic range proteinuria Status: Acute (4) Nephrotic syndrome: Problem details: Contributor to fluid retention; will need outpatient slow titration of JEANINE I to reduce proteinuria Status: Acute Time Spent With Patient Time: Recommendations: Ok for discharge once glucoses better controlled and oxygen needs sorted out; I will arrange outpt renal f/u
--- NOTE | 2020-04-21 16:19 | P.DS_ITS ---
DS: Providers Provider Date of Service: 05/14/20 Date of admission: 04/06/20 21:19 Primary care physician: Howie De La Torre MD Consults: 04/06/20 23:07 Consult to Cardiology Routine Consulting Provider: Pa Saxena Reason for consultation: New onset CHF Has provider been notified: No 04/07/20 16:13 Consult to Pulmonology Routine Consulting Provider: Perlita Cool Reason for consultation: hypoventilation syndrome 04/08/20 09:46 Consult to Nephrology Routine Consulting Provider: Gaudencio Mason Reason for consultation: JOSE, high potassium 04/09/20 11:47 Consult to Infectious Diseases Routine Consulting Provider: Darby Hull Reason for consultation: opioid use disorder Has provider been notified: Yes DS: Diagnosis Discharge Diagnosis (1) JOSE (acute kidney injury): Status: Acute DS: Medications Discharge Medications Home Medications: Home Medications Medication Instructions Recorded Confirmed acetaminophen 500 mg tablet 1,000 mg PO Q8-10H PRN 01/18/20 04/06/20 aspirin 81 mg tablet,delayed 81 mg PO DAILY 01/18/20 04/06/20 release calcium carbonate 500 mg calcium 500 mg PO DAILY 01/18/20 04/06/20 (1,250 mg) tablet cholecalciferol (vitamin D3) 25 25 mcg PO DAILY 01/18/20 04/06/20 mcg (1,000 unit) capsule clonidine HCl 0.1 mg tablet 0.1 mg PO BID 01/18/20 04/06/20 cyclobenzaprine 5 mg tablet 5 mg PO TID PRN 01/18/20 04/06/20 ferrous sulfate 325 mg (65 mg 325 mg PO DAILY 01/18/20 04/06/20 iron) tablet fluticasone propionate 50 1 spray INTRANASAL BID 01/18/20 04/06/20 mcg/actuation nasal spray,suspension insulin regular hum U-500 conc 175 unit SUBCUT BID ml 01/18/20 04/06/20 melatonin 3 mg capsule 6 mg PO BEDTIME PRN 01/18/20 04/06/20 metformin 500 mg tablet 500 mg PO DAILY 01/18/20 04/06/20 omeprazole 20 mg capsule,delayed 20 mg PO BID 01/18/20 04/06/20 release pravastatin 10 mg tablet 10 mg PO BEDTIME 01/18/20 04/06/20 topiramate 100 mg tablet 100 mg PO BEDTIME 01/18/20 04/06/20 torsemide 20 mg tablet 60 mg PO DAILY tab 01/18/20 04/06/20 trazodone 50 mg tablet 50 mg PO BEDTIME PRN 01/18/20 04/06/20 facial-body wipes #384 ea 02/20/20 03/22/20 levothyroxine 37.5 mcg PO DAILY 04/06/20 04/06/20 loperamide 2 PO Q4-5H 04/06/20 Previous Rx's Medication Instructions Recorded naloxone 4 mg/actuation nasal spray 4 mg INTRANASAL Q2M PRN #2 ea 01/20/20 dicyclomine 20 mg tablet 20 mg PO QID #120 tab 02/09/20 disposable gloves #1000 ea 02/20/20 miscellaneous medical supply See Rx Instructions MISCELLANEOUS 03/12/20 .COMPLEX #1 ea buprenorphine HCl 600 mcg buccal 600 mcg BUCCAL Q12H 30 Days #60 ea 03/22/20 film morphine 15 mg immediate release 15 mg PO Q6H PRN 30 Days #120 tab 03/22/20 tablet DS: Summary Hospital Course Hospital Course: Chief Complaint: shortness of breath This is a 49-year-old male with morbid obesity, diabetes, hypertension, hyperlipidemia who presents to the hospital with complaints of shortness of breath. Patient reports his symptoms have started about a month ago, he also noticed worsening lower extremity edema, orthopnea, and PND. He does have sleep apnea and uses a CPAP machine but reports that has not helped much, he denies any fever chills. He has a cough that is nonproductive. He reports about 100 lb weight gain since November. He has on and off diarrhea but not recently. He has no abdominal pain no nausea or vomiting, no urinary symptoms but reports that his scrotum is also swollen and red. On arrival to the ED hemodynamically stable with blood pressure of 149/68, respiratory rate of 25, satting 90% on room air and desatting to the 80s on minimal movement. Labs are significant for hemoglobin of 11.7, hematocrit 39.9, sodium of 138, potassium 4.6, and protein and COVID negative EKG showing sinus rhythm Past medical history: Chronic pain, hypertension, hyperlipidemia, diabetes, morbid obesity Past surgical history: Below-knee amputation of the right, hand surgery, kidney stones Family history: Significant for diabetes, cancer Social history: Comes from home, wheelchair-bound, denies any tobacco alcohol or illicit drugs. Hospital course: 49-year-old male super morbi obese BMI 73, DM, chronic right heart heart failure, HTN, chronic pain syndrome here with increasing SOB and totoal body fluid overload/likely right heart failure and JOSE..He decompensated on 04/08 with hypercapnia hypercabia, hypoxic respiratory failure and was transfered to ICU where he required aggresive diuresisis and > 88 ib or 40 Liters and has been on non-invasive ventilation with significant improvment. Transfer out of ICU on 04/11 and continue to need Non invasive ventilation as needed during the day and scheduled for night #Acute on chronic hypoxic hypercarbic respiratoyf failure due to COPD with compenent of hypoventilation syndrome, and Heart failure. He has significantly improved with management of heart failure and Non invasive ventilation for chronic obstructive pulmonary disease. He was a chain smoker until 5 years ago which works in his favor. #Acute heart failure likely right heart failure--He has been aggressively diuresed with IV diuertic drip and weight has come down to significantly, and cumulatively is negative negative > 50 liters (roughly 110 Ib)He is presently on Torsemide 40 mg, Aldactone 25, and Lasix. Torsemide was raised to 80 mg daily then reduced to 60 and 40 when Creatinine started rising again. Will discharge with 40 # JOSE onCKD likely cardiorenal syndrome --Creatinine is around 1.9, renal has been following, will need follow up with Nephrology. Will continue Lisinopril for proteinuria. #Hematuria--was due to traumatic BI has resolved. # hypertension--continue clonidine, Lisiniopril, and Aldactone # diabetes - patient reports poorly controlled diabetes -he uses U-500 insulin 175 units BID , but during hospitalization has required much less insulin but last several days glucose have been increasing and will likely require more and more insulin, however I don't think it would be safe to restart previous home dose of 175 of U 500 twice, rather I am recomending starting with around 75 units twice a gradually titrating up. Of note he was on Metformin 500 mg which has bee discontinued due to renal failure. U 500 is not on formulary. Will also have [facility] look into this. I spoke to the patient at [facility] about the sugars and insulin and understand the need to adjust and also will call his diabetes doctor on Thursday. # chronic pain--He uses buprenorphine (Belbuca) 600 mcg K54O--Lv has been changed to MS jain 15 Q8 #Hypothyroidism--continue levothyroxine #HLD on Pravastatin #Hypomagenesemia--replace with oral mag #Acute on Chronic respiratory failure likely due to combination COPD, with compoenent of heart failure and hypoventilation. Patient will need non invasive ventilator at home to help with gas exchage, quality of life and prevent readmission. 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 Time Spent with Patient Time attestation: Total time spent providing and/or coordinating discharge services: Discharge coordination time: Greater than 30 minutes Physical Exam Vital Signs: Vital Signs: Last Vital Signs Temp 98.5 F 04/21/20 12:00 Pulse 96 04/21/20 12:00 Resp 20 04/21/20 12:00 BP 148/53 H 04/21/20 12:00 Pulse Ox 96 04/21/20 12:00 Body Mass Index 63.3 DS: Data Data Completed and Pending Labs on day of discharge: Laboratory Tests 04/06/20 04/06/20 04/06/20 17:50 17:50 17:50 WBC Cancelled RBC Cancelled Hgb Cancelled Hct Cancelled MCV Cancelled MCH Cancelled MCHC Cancelled RDW Cancelled Plt Count Cancelled MPV Cancelled Immature Gran % (Auto) Cancelled Neut % (Auto) Cancelled Lymph % (Auto) Cancelled Mckenzie % (Auto) Cancelled Eos % (Auto) Cancelled Baso % (Auto) Cancelled Lymph # (Auto) Cancelled Mckenzie # (Auto) Cancelled Eos # (Auto) Cancelled Baso # (Auto) Cancelled Abs Immat Gran (auto) Cancelled Absolute Neuts (auto) Cancelled Absolute Nucleated RBC Cancelled Nucleated RBC % (auto) Cancelled Smear Tech's Comments Smear Path Review D-Dimer ABG pH ABG pCO2 ABG pO2 ABG HCO3 ABG O2 Saturation ABG Base Excess VBG pH VBG pCO2 VBG pO2 VBG HCO3 VBG O2 Saturation VBG Base Excess Oxygen Given Sodium Cancelled Potassium Cancelled Chloride Cancelled Carbon Dioxide Cancelled Anion Gap Cancelled BUN Cancelled Creatinine Cancelled Estim Creat Clear Calc Cancelled Estimated GFR Cancelled POC Glucose Random Glucose Cancelled Calcium Cancelled Phosphorus Magnesium Total Bilirubin Cancelled Direct Bilirubin Cancelled AST Cancelled ALT Cancelled Alkaline Phosphatase Cancelled Troponin I High Sens 13.0 B-Natriuretic Peptide 108 H Total Protein Cancelled Albumin Cancelled Lipase Cancelled Urine Color Urine Appearance Urine pH Ur Specific Roann Urine Protein Urine Glucose (UA) Urine Ketones Urine Blood Urine Nitrite Ur Leukocyte Esterase Urine RBC Urine WBC Ur Squamous Epith Cells Urine Bacteria U Random Total Protein Urine Creatinine C. difficile Toxin A&B C. difficile Antigen C. difficile Interpret COVID-19 (PINKY) [employer] 04/06/20 04/06/20 04/06/20 17:50 17:54 18:26 WBC RBC Hgb Hct MCV MCH MCHC RDW Plt Count MPV Immature Gran % (Auto) Neut % (Auto) Lymph % (Auto) Mckenzie % (Auto) Eos % (Auto) Baso % (Auto) Lymph # (Auto) Mckenzie # (Auto) Eos # (Auto) Baso # (Auto) Abs Immat Gran (auto) Absolute Neuts (auto) Absolute Nucleated RBC Nucleated RBC % (auto) Smear Tech's Comments Smear Path Review D-Dimer Cancelled ABG pH ABG pCO2 ABG pO2 ABG HCO3 ABG O2 Saturation ABG Base Excess VBG pH VBG pCO2 VBG pO2 VBG HCO3 VBG O2 Saturation VBG Base Excess Oxygen Given Sodium Potassium Chloride Carbon Dioxide Anion Gap BUN Creatinine Estim Creat Clear Calc Estimated GFR POC Glucose Random Glucose Calcium Phosphorus Magnesium Total Bilirubin Direct Bilirubin AST ALT Alkaline Phosphatase Troponin I High Sens B-Natriuretic Peptide Total Protein Albumin Lipase Urine Color STRAW Urine Appearance CLEAR Urine pH 6.0 Ur Specific Roann 1.015 Urine Protein 2+ H Urine Glucose (UA) NEG Urine Ketones NEG Urine Blood 2+ H Urine Nitrite NEG Ur Leukocyte Esterase NEG Urine RBC 1-4 Urine WBC 0-2 Ur Squamous Epith Cells TRACE Urine Bacteria NONE U Random Total Protein Urine Creatinine C. difficile Toxin A&B C. difficile Antigen C. difficile Interpret COVID-19 (PINKY) Negative [employer] See Note 04/06/20 04/06/20 04/06/20 18:32 18:32 18:32 WBC 4.2 L RBC 3.61 L Hgb 11.1 L Hct 37.2 L MCV 103.0 H MCH 30.7 MCHC 29.8 L RDW 14.3 Plt Count 105 L MPV 9.3 L Immature Gran % (Auto) 0.5 H Neut % (Auto) 79.6 H Lymph % (Auto) 9.8 L Mckenzie % (Auto) 8.4 Eos % (Auto) 1.7 Baso % (Auto) 0.0 Lymph # (Auto) 0.4 L Mckenzie # (Auto) 0.4 Eos # (Auto) 0.1 Baso # (Auto) 0.0 Abs Immat Gran (auto) 0.02 Absolute Neuts (auto) 3.3 Absolute Nucleated RBC 0.020 H Nucleated RBC % (auto) 0.5 H Smear Tech's Comments VERIFIED Smear Path Review D-Dimer 740 ABG pH ABG pCO2 ABG pO2 ABG HCO3 ABG O2 Saturation ABG Base Excess VBG pH 7.28 L VBG pCO2 61 VBG pO2 51 VBG HCO3 28 VBG O2 Saturation 81.6 VBG Base Excess -0.1 Oxygen Given Sodium Potassium Chloride Carbon Dioxide Anion Gap BUN Creatinine Estim Creat Clear Calc Estimated GFR POC Glucose Random Glucose Calcium Phosphorus Magnesium Total Bilirubin Direct Bilirubin AST ALT Alkaline Phosphatase Troponin I High Sens B-Natriuretic Peptide Total Protein Albumin Lipase Urine Color Urine Appearance Urine pH Ur Specific Roann Urine Protein Urine Glucose (UA) Urine Ketones Urine Blood Urine Nitrite Ur Leukocyte Esterase Urine RBC Urine WBC Ur Squamous Epith Cells Urine Bacteria U Random Total Protein Urine Creatinine C. difficile Toxin A&B C. difficile Antigen C. difficile Interpret COVID-19 (PINKY) COVID-19 Clin Com 04/06/20 04/06/20 04/06/20 18:32 19:34 23:50 WBC RBC Hgb Hct MCV MCH MCHC RDW Plt Count MPV Immature Gran % (Auto) Neut % (Auto) Lymph % (Auto) Mckenzie % (Auto) Eos % (Auto) Baso % (Auto) Lymph # (Auto) Mckenzie # (Auto) Eos # (Auto) Baso # (Auto) Abs Immat Gran (auto) Absolute Neuts (auto) Absolute Nucleated RBC Nucleated RBC % (auto) Smear Tech's Comments Smear Path Review D-Dimer ABG pH ABG pCO2 ABG pO2 ABG HCO3 ABG O2 Saturation ABG Base Excess VBG pH VBG pCO2 VBG pO2 VBG HCO3 VBG O2 Saturation VBG Base Excess Oxygen Given Sodium Cancelled 138 Potassium Cancelled 4.6 Chloride Cancelled 104 Carbon Dioxide Cancelled 29 Anion Gap Cancelled 10 L BUN Cancelled 26 H Creatinine Cancelled 1.32 Estim Creat Clear Calc Cancelled 121.4 Estimated GFR Cancelled 57 POC Glucose 107 Random Glucose Cancelled 129 H Calcium Cancelled 7.6 L Phosphorus Magnesium Total Bilirubin Cancelled 0.3 Direct Bilirubin Cancelled < 0.2 AST Cancelled 17 ALT Cancelled 18 Alkaline Phosphatase Cancelled 56 Troponin I High Sens B-Natriuretic Peptide Total Protein Cancelled 6.0 L Albumin Cancelled 3.2 L Lipase Cancelled 17 Urine Color Urine Appearance Urine pH Ur Specific Roann Urine Protein Urine Glucose (UA) Urine Ketones Urine Blood Urine Nitrite Ur Leukocyte Esterase Urine RBC Urine WBC Ur Squamous Epith Cells Urine Bacteria U Random Total Protein Urine Creatinine C. difficile Toxin A&B C. difficile Antigen C. difficile Interpret COVID-19 (PINKY) COVID-19 Clin Com 04/07/20 04/07/20 04/07/20 04:35 04:35 07:17 WBC 5.4 RBC 3.79 L Hgb 11.7 L Hct 39.9 L MCV 105.3 H MCH 30.9 MCHC 29.3 L RDW 14.2 Plt Count 122 L MPV 9.6 Immature Gran % (Auto) 0.7 H Neut % (Auto) 76.1 H Lymph % (Auto) 13.8 L Mckenzie % (Auto) 7.5 Eos % (Auto) 1.7 Baso % (Auto) 0.2 Lymph # (Auto) 0.7 L Mckenzie # (Auto) 0.4 Eos # (Auto) 0.1 Baso # (Auto) 0.0 Abs Immat Gran (auto) 0.04 H Absolute Neuts (auto) 4.1 Absolute Nucleated RBC 0.000 Nucleated RBC % (auto) 0.0 Smear Tech's Comments Smear Path Review D-Dimer ABG pH ABG pCO2 ABG pO2 ABG HCO3 ABG O2 Saturation ABG Base Excess VBG pH VBG pCO2 VBG pO2 VBG HCO3 VBG O2 Saturation VBG Base Excess Oxygen Given Sodium 138 Potassium 5.2 H Chloride 105 Carbon Dioxide 25 Anion Gap 13 BUN 28 H Creatinine 1.55 H Estim Creat Clear Calc 103.4 Estimated GFR 48 POC Glucose Random Glucose 136 H Calcium 7.7 L Phosphorus Magnesium Total Bilirubin Direct Bilirubin AST ALT Alkaline Phosphatase Troponin I High Sens 11.6 B-Natriuretic Peptide Total Protein Albumin Lipase Urine Color Urine Appearance Urine pH Ur Specific Roann Urine Protein Urine Glucose (UA) Urine Ketones Urine Blood Urine Nitrite Ur Leukocyte Esterase Urine RBC Urine WBC Ur Squamous Epith Cells Urine Bacteria U Random Total Protein Urine Creatinine C. difficile Toxin A&B C. difficile Antigen C. difficile Interpret COVID-19 (PINKY) COVID-19 Clin [email or web address] 04/07/20 04/07/20 04/07/20 07:45 11:25 16:41 WBC RBC Hgb Hct MCV MCH MCHC RDW Plt Count MPV Immature Gran % (Auto) Neut % (Auto) Lymph % (Auto) Mckenzie % (Auto) Eos % (Auto) Baso % (Auto) Lymph # (Auto) Mckenzie # (Auto) Eos # (Auto) Baso # (Auto) Abs Immat Gran (auto) Absolute Neuts (auto) Absolute Nucleated RBC Nucleated RBC % (auto) Smear Tech's Comments Smear Path Review D-Dimer ABG pH ABG pCO2 ABG pO2 ABG HCO3 ABG O2 Saturation ABG Base Excess VBG pH VBG pCO2 VBG pO2 VBG HCO3 VBG O2 Saturation VBG Base Excess Oxygen Given Sodium Potassium Chloride Carbon Dioxide Anion Gap BUN Creatinine Estim Creat Clear Calc Estimated GFR POC Glucose 156 H 203 H 250 H Random Glucose Calcium Phosphorus Magnesium Total Bilirubin Direct Bilirubin AST ALT Alkaline Phosphatase Troponin I High Sens B-Natriuretic Peptide Total Protein Albumin Lipase Urine Color Urine Appearance Urine pH Ur Specific Roann Urine Protein Urine Glucose (UA) Urine Ketones Urine Blood Urine Nitrite Ur Leukocyte Esterase Urine RBC Urine WBC Ur Squamous Epith Cells Urine Bacteria U Random Total Protein Urine Creatinine C. difficile Toxin A&B C. difficile Antigen C. difficile Interpret COVID-19 (PINKY) COVID-19 Clin Com 04/07/20 04/08/20 04/08/20 21:15 07:31 08:50 WBC RBC Hgb Hct MCV MCH MCHC RDW Plt Count MPV Immature Gran % (Auto) Neut % (Auto) Lymph % (Auto) Mckenzie % (Auto) Eos % (Auto) Baso % (Auto) Lymph # (Auto) Mckenzie # (Auto) Eos # (Auto) Baso # (Auto) Abs Immat Gran (auto) Absolute Neuts (auto) Absolute Nucleated RBC Nucleated RBC % (auto) Smear Tech's Comments Smear Path Review D-Dimer ABG pH ABG pCO2 ABG pO2 ABG HCO3 ABG O2 Saturation ABG Base Excess VBG pH VBG pCO2 VBG pO2 VBG HCO3 VBG O2 Saturation VBG Base Excess Oxygen Given Sodium 139 Potassium 5.4 H Chloride 105 Carbon Dioxide 29 Anion Gap 10 L BUN 33 H Creatinine 1.67 H Estim Creat Clear Calc 94.2 Estimated GFR 44 POC Glucose 166 H 203 H Random Glucose 220 H D Calcium 7.7 L Phosphorus Magnesium Total Bilirubin Direct Bilirubin AST ALT Alkaline Phosphatase Troponin I High Sens B-Natriuretic Peptide Total Protein Albumin Lipase Urine Color Urine Appearance Urine pH Ur Specific Roann Urine Protein Urine Glucose (UA) Urine Ketones Urine Blood Urine Nitrite Ur Leukocyte Esterase Urine RBC Urine WBC Ur Squamous Epith Cells Urine Bacteria U Random Total Protein Urine Creatinine C. difficile Toxin A&B C. difficile Antigen C. difficile Interpret COVID-19 (PINKY) COVID-19 [employer] 04/08/20 04/08/20 04/08/20 12:12 13:05 13:05 WBC RBC Hgb Hct MCV MCH MCHC RDW Plt Count MPV Immature Gran % (Auto) Neut % (Auto) Lymph % (Auto) Mckenzie % (Auto) Eos % (Auto) Baso % (Auto) Lymph # (Auto) Mckenzie # (Auto) Eos # (Auto) Baso # (Auto) Abs Immat Gran (auto) Absolute Neuts (auto) Absolute Nucleated RBC Nucleated RBC % (auto) Smear Tech's Comments Smear Path Review D-Dimer ABG pH ABG pCO2 ABG pO2 ABG HCO3 ABG O2 Saturation ABG Base Excess VBG pH VBG pCO2 VBG pO2 VBG HCO3 VBG O2 Saturation VBG Base Excess Oxygen Given Sodium Potassium Chloride Carbon Dioxide Anion Gap BUN Creatinine Estim Creat Clear Calc Estimated GFR POC Glucose 197 H Random Glucose Calcium Phosphorus Magnesium Total Bilirubin Direct Bilirubin AST ALT Alkaline Phosphatase Troponin I High Sens B-Natriuretic Peptide Total Protein Albumin Lipase Urine Color Urine Appearance Urine pH Ur Specific Roann Urine Protein Urine Glucose (UA) Urine Ketones Urine Blood Urine Nitrite Ur Leukocyte Esterase Urine RBC Urine WBC Ur Squamous Epith Cells Urine Bacteria U Random Total Protein 336 H Urine Creatinine 69.34 C. difficile Toxin A&B C. difficile Antigen C. difficile Interpret COVID-19 (PINKY) [email or web address] [employer] 04/08/20 04/08/20 04/08/20 13:15 16:19 20:26 WBC RBC Hgb Hct MCV MCH MCHC RDW Plt Count MPV Immature Gran % (Auto) Neut % (Auto) Lymph % (Auto) Mckenzie % (Auto) Eos % (Auto) Baso % (Auto) Lymph # (Auto) Mckenzie # (Auto) Eos # (Auto) Baso # (Auto) Abs Immat Gran (auto) Absolute Neuts (auto) Absolute Nucleated RBC Nucleated RBC % (auto) Smear Tech's Comments Smear Path Review D-Dimer ABG pH 7.22 L ABG pCO2 79 H* ABG pO2 81 L ABG HCO3 31 H ABG O2 Saturation 92.4 ABG Base Excess 1.7 VBG pH VBG pCO2 VBG pO2 VBG HCO3 VBG O2 Saturation VBG Base Excess Oxygen Given 35% Sodium 142 Potassium 4.7 Chloride 103 Carbon Dioxide 33 H Anion Gap 11 L BUN 31 H Creatinine 1.48 H Estim Creat Clear Calc 106.3 Estimated GFR 50 POC Glucose 162 H Random Glucose 167 H Calcium 7.9 L Phosphorus Magnesium Total Bilirubin Direct Bilirubin AST ALT Alkaline Phosphatase Troponin I High Sens B-Natriuretic Peptide Total Protein Albumin Lipase Urine Color Urine Appearance Urine pH Ur Specific Roann Urine Protein Urine Glucose (UA) Urine Ketones Urine Blood Urine Nitrite Ur Leukocyte Esterase Urine RBC Urine WBC Ur Squamous Epith Cells Urine Bacteria U Random Total Protein Urine Creatinine C. difficile Toxin A&B C. difficile Antigen C. difficile Interpret COVID-19 (PINKY) COVID-19 Clin Com 04/08/20 04/08/20 04/08/20 21:20 21:36 Unknown WBC RBC Hgb Hct MCV MCH MCHC RDW Plt Count MPV Immature Gran % (Auto) Neut % (Auto) Lymph % (Auto) Mckenzie % (Auto) Eos % (Auto) Baso % (Auto) Lymph # (Auto) Mckenzie # (Auto) Eos # (Auto) Baso # (Auto) Abs Immat Gran (auto) Absolute Neuts (auto) Absolute Nucleated RBC Nucleated RBC % (auto) Smear Tech's Comments Smear Path Review D-Dimer ABG pH 7.26 L 7.16 L* ABG pCO2 69 H* 89 H* ABG pO2 73 L 93 ABG HCO3 30 H 31 H ABG O2 Saturation 91.6 93.8 ABG Base Excess 2.0 0.1 VBG pH VBG pCO2 VBG pO2 VBG HCO3 VBG O2 Saturation VBG Base Excess Oxygen Given 30% 40% Sodium Potassium Chloride Carbon Dioxide Anion Gap BUN Creatinine Estim Creat Clear Calc Estimated GFR POC Glucose 158 H Random Glucose Calcium Phosphorus Magnesium Total Bilirubin Direct Bilirubin AST ALT Alkaline Phosphatase Troponin I High Sens B-Natriuretic Peptide Total Protein Albumin Lipase Urine Color Urine Appearance Urine pH Ur Specific Roann Urine Protein Urine Glucose (UA) Urine Ketones Urine Blood Urine Nitrite Ur Leukocyte Esterase Urine RBC Urine WBC Ur Squamous Epith Cells Urine Bacteria U Random Total Protein Urine Creatinine C. difficile Toxin A&B C. difficile Antigen C. difficile Interpret COVID-19 (PINKY) COVID-19 Clin Com 04/09/20 04/09/20 04/09/20 05:17 05:17 05:17 WBC 3.5 L RBC 3.26 L Hgb 10.0 L Hct 34.0 L MCV 104.3 H MCH 30.7 MCHC 29.4 L RDW 14.4 Plt Count 95 L MPV 9.4 Immature Gran % (Auto) 0.9 H Neut % (Auto) 80.8 H Lymph % (Auto) 8.3 L Mckenzie % (Auto) 8.3 Eos % (Auto) 1.4 Baso % (Auto) 0.3 Lymph # (Auto) 0.3 L Mckenzie # (Auto) 0.3 Eos # (Auto) 0.1 Baso # (Auto) 0.0 Abs Immat Gran (auto) 0.03 Absolute Neuts (auto) 2.8 Absolute Nucleated RBC 0.000 Nucleated RBC % (auto) 0.0 Smear Tech's Comments VERIFIED Smear Path Review D-Dimer ABG pH ABG pCO2 ABG pO2 ABG HCO3 ABG O2 Saturation ABG Base Excess VBG pH 7.28 L VBG pCO2 74 VBG pO2 51 VBG HCO3 34 VBG O2 Saturation 83.7 VBG Base Excess 5.7 Oxygen Given Sodium 144 Potassium 4.0 Chloride 103 Carbon Dioxide 34 H Anion Gap 11 L BUN 30 H Creatinine 1.36 Estim Creat Clear Calc 112.5 Estimated GFR 55 POC Glucose Random Glucose 170 H Calcium 7.9 L Phosphorus Magnesium Total Bilirubin Direct Bilirubin AST ALT Alkaline Phosphatase Troponin I High Sens B-Natriuretic Peptide Total Protein Albumin Lipase Urine Color Urine Appearance Urine pH Ur Specific Roann Urine Protein Urine Glucose (UA) Urine Ketones Urine Blood Urine Nitrite Ur Leukocyte Esterase Urine RBC Urine WBC Ur Squamous Epith Cells Urine Bacteria U Random Total Protein Urine Creatinine C. difficile Toxin A&B C. difficile Antigen C. difficile Interpret COVID-19 (PINKY) COVID-19 Clin Com 04/09/20 04/09/20 04/09/20 07:16 07:16 10:48 WBC RBC Hgb Hct MCV MCH MCHC RDW Plt Count MPV Immature Gran % (Auto) Neut % (Auto) Lymph % (Auto) Mckenzie % (Auto) Eos % (Auto) Baso % (Auto) Lymph # (Auto) Mckenzie # (Auto) Eos # (Auto) Baso # (Auto) Abs Immat Gran (auto) Absolute Neuts (auto) Absolute Nucleated RBC Nucleated RBC % (auto) Smear Tech's Comments Smear Path Review D-Dimer ABG pH ABG pCO2 ABG pO2 ABG HCO3 ABG O2 Saturation ABG Base Excess VBG pH 7.30 L VBG pCO2 63 VBG pO2 49 VBG HCO3 31 VBG O2 Saturation 82.8 VBG Base Excess 3.0 Oxygen Given Sodium Potassium Chloride Carbon Dioxide Anion Gap BUN Creatinine Estim Creat Clear Calc Estimated GFR POC Glucose 164 H 164 H Random Glucose Calcium Phosphorus Magnesium Total Bilirubin Direct Bilirubin AST ALT Alkaline Phosphatase Troponin I High Sens B-Natriuretic Peptide Total Protein Albumin Lipase Urine Color Urine Appearance Urine pH Ur Specific Roann Urine Protein Urine Glucose (UA) Urine Ketones Urine Blood Urine Nitrite Ur Leukocyte Esterase Urine RBC Urine WBC Ur Squamous Epith Cells Urine Bacteria U Random Total Protein Urine Creatinine C. difficile Toxin A&B C. difficile Antigen C. difficile Interpret COVID-19 (PINKY) COVID-19 Clin Com 04/09/20 04/09/20 04/09/20 11:30 16:01 22:32 WBC RBC Hgb Hct MCV MCH MCHC RDW Plt Count MPV Immature Gran % (Auto) Neut % (Auto) Lymph % (Auto) Mckenzie % (Auto) Eos % (Auto) Baso % (Auto) Lymph # (Auto) Mckenzie # (Auto) Eos # (Auto) Baso # (Auto) Abs Immat Gran (auto) Absolute Neuts (auto) Absolute Nucleated RBC Nucleated RBC % (auto) Smear Tech's Comments Smear Path Review D-Dimer ABG pH ABG pCO2 ABG pO2 ABG HCO3 ABG O2 Saturation ABG Base Excess VBG pH VBG pCO2 VBG pO2 VBG HCO3 VBG O2 Saturation VBG Base Excess Oxygen Given Sodium Potassium Chloride Carbon Dioxide Anion Gap BUN Creatinine Estim Creat Clear Calc Estimated GFR POC Glucose 161 H 173 H 154 H Random Glucose Calcium Phosphorus Magnesium Total Bilirubin Direct Bilirubin AST ALT Alkaline Phosphatase Troponin I High Sens B-Natriuretic Peptide Total Protein Albumin Lipase Urine Color Urine Appearance Urine pH Ur Specific Roann Urine Protein Urine Glucose (UA) Urine Ketones Urine Blood Urine Nitrite Ur Leukocyte Esterase Urine RBC Urine WBC Ur Squamous Epith Cells Urine Bacteria U Random Total Protein Urine Creatinine C. difficile Toxin A&B C. difficile Antigen C. difficile Interpret COVID-19 (PINKY) COVID-19 Clin Com 04/10/20 04/10/20 04/10/20 00:11 04:46 04:46 WBC 3.3 L RBC 3.42 L Hgb 10.5 L Hct 35.5 L MCV 103.8 H MCH 30.7 MCHC 29.6 L RDW 14.3 Plt Count 112 L MPV 9.4 Immature Gran % (Auto) 0.9 H Neut % (Auto) 72.2 Lymph % (Auto) 16.0 L Mckenzie % (Auto) 8.5 Eos % (Auto) 2.1 Baso % (Auto) 0.3 Lymph # (Auto) 0.5 L Mckenzie # (Auto) 0.3 Eos # (Auto) 0.1 Baso # (Auto) 0.0 Abs Immat Gran (auto) 0.03 Absolute Neuts (auto) 2.4 Absolute Nucleated RBC 0.000 Nucleated RBC % (auto) 0.0 Smear Tech's Comments VERIFIED Smear Path Review D-Dimer ABG pH ABG pCO2 ABG pO2 ABG HCO3 ABG O2 Saturation ABG Base Excess VBG pH 7.33 VBG pCO2 68 VBG pO2 47 VBG HCO3 35 VBG O2 Saturation 78.3 VBG Base Excess 7.8 Oxygen Given Sodium 146 H Potassium 3.8 Chloride 98 Carbon Dioxide 39 H Anion Gap 13 BUN 22 H Creatinine 1.20 Estim Creat Clear Calc 124.8 Estimated GFR > 60 POC Glucose Random Glucose 158 H Calcium 8.3 L Phosphorus 3.3 Magnesium 1.8 Total Bilirubin Direct Bilirubin AST ALT Alkaline Phosphatase Troponin I High Sens B-Natriuretic Peptide Total Protein Albumin Lipase Urine Color Urine Appearance Urine pH Ur Specific Roann Urine Protein Urine Glucose (UA) Urine Ketones Urine Blood Urine Nitrite Ur Leukocyte Esterase Urine RBC Urine WBC Ur Squamous Epith Cells Urine Bacteria U Random Total Protein Urine Creatinine C. difficile Toxin A&B C. difficile Antigen C. difficile Interpret COVID-19 (PINKY) COVID-19 Clin Com 04/10/20 04/10/20 04/10/20 04:46 05:01 07:12 WBC RBC Hgb Hct MCV MCH MCHC RDW Plt Count MPV Immature Gran % (Auto) Neut % (Auto) Lymph % (Auto) Mckenzie % (Auto) Eos % (Auto) Baso % (Auto) Lymph # (Auto) Mckenzie # (Auto) Eos # (Auto) Baso # (Auto) Abs Immat Gran (auto) Absolute Neuts (auto) Absolute Nucleated RBC Nucleated RBC % (auto) Smear Tech's Comments Smear Path Review D-Dimer ABG pH ABG pCO2 ABG pO2 ABG HCO3 ABG O2 Saturation ABG Base Excess VBG pH 7.38 VBG pCO2 70 VBG pO2 38 VBG HCO3 40 VBG O2 Saturation 74.3 VBG Base Excess 12.2 Oxygen Given Sodium Potassium Chloride Carbon Dioxide Anion Gap BUN Creatinine Estim Creat Clear Calc Estimated GFR POC Glucose 164 H Random Glucose Calcium Phosphorus Magnesium Total Bilirubin Direct Bilirubin AST ALT Alkaline Phosphatase Troponin I High Sens B-Natriuretic Peptide 82 Total Protein Albumin Lipase Urine Color Urine Appearance Urine pH Ur Specific Roann Urine Protein Urine Glucose (UA) Urine Ketones Urine Blood Urine Nitrite Ur Leukocyte Esterase Urine RBC Urine WBC Ur Squamous Epith Cells Urine Bacteria U Random Total Protein Urine Creatinine C. difficile Toxin A&B C. difficile Antigen C. difficile Interpret COVID-19 (PINKY) COVID-19 Clin Com 04/10/20 04/10/20 04/10/20 11:07 15:44 16:33 WBC RBC Hgb Hct MCV MCH MCHC RDW Plt Count MPV Immature Gran % (Auto) Neut % (Auto) Lymph % (Auto) Mckenzie % (Auto) Eos % (Auto) Baso % (Auto) Lymph # (Auto) Mckenzie # (Auto) Eos # (Auto) Baso # (Auto) Abs Immat Gran (auto) Absolute Neuts (auto) Absolute Nucleated RBC Nucleated RBC % (auto) Smear Tech's Comments Smear Path Review D-Dimer ABG pH ABG pCO2 ABG pO2 ABG HCO3 ABG O2 Saturation ABG Base Excess VBG pH 7.37 VBG pCO2 68 VBG pO2 34 VBG HCO3 39 VBG O2 Saturation 64.3 VBG Base Excess 11.1 Oxygen Given Sodium Potassium Chloride Carbon Dioxide Anion Gap BUN Creatinine Estim Creat Clear Calc Estimated GFR POC Glucose 179 H 210 H Random Glucose Calcium Phosphorus Magnesium Total Bilirubin Direct Bilirubin AST ALT Alkaline Phosphatase Troponin I High Sens B-Natriuretic Peptide Total Protein Albumin Lipase Urine Color Urine Appearance Urine pH Ur Specific Roann Urine Protein Urine Glucose (UA) Urine Ketones Urine Blood Urine Nitrite Ur Leukocyte Esterase Urine RBC Urine WBC Ur Squamous Epith Cells Urine Bacteria U Random Total Protein Urine Creatinine C. difficile Toxin A&B C. difficile Antigen C. difficile Interpret COVID-19 (PINKY) COVID-19 Clin Com 04/10/20 04/11/20 04/11/20 21:15 05:05 05:05 WBC 2.9 L RBC 3.22 L Hgb 9.9 L Hct 33.1 L MCV 102.8 H MCH 30.7 MCHC 29.9 L RDW 13.6 Plt Count 98 L MPV 9.4 Immature Gran % (Auto) 0.7 H Neut % (Auto) 72.5 Lymph % (Auto) 14.3 L Mckenzie % (Auto) 9.1 Eos % (Auto) 3.1 Baso % (Auto) 0.3 Lymph # (Auto) 0.4 L Mckenzie # (Auto) 0.3 Eos # (Auto) 0.1 Baso # (Auto) 0.0 Abs Immat Gran (auto) 0.02 Absolute Neuts (auto) 2.1 Absolute Nucleated RBC 0.000 Nucleated RBC % (auto) 0.0 Smear Tech's Comments VERIFIED Smear Path Review D-Dimer ABG pH ABG pCO2 ABG pO2 ABG HCO3 ABG O2 Saturation ABG Base Excess VBG pH VBG pCO2 VBG pO2 VBG HCO3 VBG O2 Saturation VBG Base Excess Oxygen Given Sodium 143 Potassium 3.8 Chloride 96 Carbon Dioxide 42 H* Anion Gap 9 L BUN 19 H Creatinine 1.21 Estim Creat Clear Calc 121.4 Estimated GFR > 60 POC Glucose 197 H Random Glucose 195 H Calcium 8.3 L Phosphorus 4.3 Magnesium 1.9 Total Bilirubin Direct Bilirubin AST ALT Alkaline Phosphatase Troponin I High Sens B-Natriuretic Peptide Total Protein Albumin Lipase Urine Color Urine Appearance Urine pH Ur Specific Roann Urine Protein Urine Glucose (UA) Urine Ketones Urine Blood Urine Nitrite Ur Leukocyte Esterase Urine RBC Urine WBC Ur Squamous Epith Cells Urine Bacteria U Random Total Protein Urine Creatinine C. difficile Toxin A&B C. difficile Antigen C. difficile Interpret COVID-19 (PINKY) COVID-19 Clin [email or web address] 04/11/20 04/11/20 04/11/20 05:05 07:31 08:10 WBC RBC Hgb Hct MCV MCH MCHC RDW Plt Count MPV Immature Gran % (Auto) Neut % (Auto) Lymph % (Auto) Mckenzie % (Auto) Eos % (Auto) Baso % (Auto) Lymph # (Auto) Mckenzie # (Auto) Eos # (Auto) Baso # (Auto) Abs Immat Gran (auto) Absolute Neuts (auto) Absolute Nucleated RBC Nucleated RBC % (auto) Smear Tech's Comments Smear Path Review D-Dimer ABG pH ABG pCO2 ABG pO2 ABG HCO3 ABG O2 Saturation ABG Base Excess VBG pH 7.26 L 7.30 L VBG pCO2 78 88 VBG pO2 68 52 VBG HCO3 34 43 VBG O2 Saturation 89.2 82.1 VBG Base Excess 5.4 13.2 Oxygen Given Sodium Potassium Chloride Carbon Dioxide Anion Gap BUN Creatinine Estim Creat Clear Calc Estimated GFR POC Glucose 177 H Random Glucose Calcium Phosphorus Magnesium Total Bilirubin Direct Bilirubin AST ALT Alkaline Phosphatase Troponin I High Sens B-Natriuretic Peptide Total Protein Albumin Lipase Urine Color Urine Appearance Urine pH Ur Specific Roann Urine Protein Urine Glucose (UA) Urine Ketones Urine Blood Urine Nitrite Ur Leukocyte Esterase Urine RBC Urine WBC Ur Squamous Epith Cells Urine Bacteria U Random Total Protein Urine Creatinine C. difficile Toxin A&B C. difficile Antigen C. difficile Interpret COVID-19 (PINKY) COVID-19 [employer] 04/11/20 04/11/20 04/11/20 11:12 11:58 15:00 WBC RBC Hgb Hct MCV MCH MCHC RDW Plt Count MPV Immature Gran % (Auto) Neut % (Auto) Lymph % (Auto) Mckenzie % (Auto) Eos % (Auto) Baso % (Auto) Lymph # (Auto) Mckenzie # (Auto) Eos # (Auto) Baso # (Auto) Abs Immat Gran (auto) Absolute Neuts (auto) Absolute Nucleated RBC Nucleated RBC % (auto) Smear Tech's Comments Smear Path Review D-Dimer ABG pH ABG pCO2 ABG pO2 ABG HCO3 ABG O2 Saturation ABG Base Excess VBG pH 7.33 7.35 VBG pCO2 77 68 VBG pO2 42 39 VBG HCO3 40 37 VBG O2 Saturation 74.1 71.5 VBG Base Excess 11.7 9.0 Oxygen Given Sodium Potassium Chloride Carbon Dioxide Anion Gap BUN Creatinine Estim Creat Clear Calc Estimated GFR POC Glucose 241 H Random Glucose Calcium Phosphorus Magnesium Total Bilirubin Direct Bilirubin AST ALT Alkaline Phosphatase Troponin I High Sens B-Natriuretic Peptide Total Protein Albumin Lipase Urine Color Urine Appearance Urine pH Ur Specific Roann Urine Protein Urine Glucose (UA) Urine Ketones Urine Blood Urine Nitrite Ur Leukocyte Esterase Urine RBC Urine WBC Ur Squamous Epith Cells Urine Bacteria U Random Total Protein Urine Creatinine C. difficile Toxin A&B C. difficile Antigen C. difficile Interpret COVID-19 (PINKY) COVID-19 [employer] Com 04/11/20 04/11/20 04/12/20 16:13 19:52 05:33 WBC 2.7 L RBC 3.44 L Hgb 10.4 L Hct 34.2 L MCV 99.4 H MCH 30.2 MCHC 30.4 L RDW 13.5 Plt Count 98 L MPV 9.7 Immature Gran % (Auto) 0.4 Neut % (Auto) 73.8 H Lymph % (Auto) 12.0 L Mckenzie % (Auto) 10.9 Eos % (Auto) 2.9 Baso % (Auto) 0.0 Lymph # (Auto) 0.3 L Mckenzie # (Auto) 0.3 Eos # (Auto) 0.1 Baso # (Auto) 0.0 Abs Immat Gran (auto) 0.01 Absolute Neuts (auto) 2.0 Absolute Nucleated RBC 0.000 Nucleated RBC % (auto) 0.0 Smear Tech's Comments VERIFIED Smear Path Review D-Dimer ABG pH ABG pCO2 ABG pO2 ABG HCO3 ABG O2 Saturation ABG Base Excess VBG pH VBG pCO2 VBG pO2 VBG HCO3 VBG O2 Saturation VBG Base Excess Oxygen Given Sodium Potassium Chloride Carbon Dioxide Anion Gap BUN Creatinine Estim Creat Clear Calc Estimated GFR POC Glucose 215 H 245 H Random Glucose Calcium Phosphorus Magnesium Total Bilirubin Direct Bilirubin AST ALT Alkaline Phosphatase Troponin I High Sens B-Natriuretic Peptide Total Protein Albumin Lipase Urine Color Urine Appearance Urine pH Ur Specific Roann Urine Protein Urine Glucose (UA) Urine Ketones Urine Blood Urine Nitrite Ur Leukocyte Esterase Urine RBC Urine WBC Ur Squamous Epith Cells Urine Bacteria U Random Total Protein Urine Creatinine C. difficile Toxin A&B C. difficile Antigen C. difficile Interpret COVID-19 (PINKY) COVID-19 Clin Com 04/12/20 04/12/20 04/12/20 05:33 07:36 11:16 WBC RBC Hgb Hct MCV MCH MCHC RDW Plt Count MPV Immature Gran % (Auto) Neut % (Auto) Lymph % (Auto) Mckenzie % (Auto) Eos % (Auto) Baso % (Auto) Lymph # (Auto) Mckenzie # (Auto) Eos # (Auto) Baso # (Auto) Abs Immat Gran (auto) Absolute Neuts (auto) Absolute Nucleated RBC Nucleated RBC % (auto) Smear Tech's Comments Smear Path Review D-Dimer ABG pH ABG pCO2 ABG pO2 ABG HCO3 ABG O2 Saturation ABG Base Excess VBG pH VBG pCO2 VBG pO2 VBG HCO3 VBG O2 Saturation VBG Base Excess Oxygen Given Sodium 140 Potassium 3.9 Chloride 97 Carbon Dioxide 35 H Anion Gap 12 BUN 19 H Creatinine 1.22 Estim Creat Clear Calc 123.4 Estimated GFR > 60 POC Glucose 203 H 247 H Random Glucose 205 H Calcium 8.6 Phosphorus 4.4 Magnesium 1.8 Total Bilirubin Direct Bilirubin AST ALT Alkaline Phosphatase Troponin I High Sens B-Natriuretic Peptide Total Protein Albumin Lipase Urine Color Urine Appearance Urine pH Ur Specific Roann Urine Protein Urine Glucose (UA) Urine Ketones Urine Blood Urine Nitrite Ur Leukocyte Esterase Urine RBC Urine WBC Ur Squamous Epith Cells Urine Bacteria U Random Total Protein Urine Creatinine C. difficile Toxin A&B C. difficile Antigen C. difficile Interpret COVID-19 (PINKY) COVID-19 Clin Com 04/12/20 04/12/20 04/13/20 16:19 20:22 06:08 WBC 2.3 L RBC 3.39 L Hgb 10.1 L Hct 33.8 L MCV 99.7 H MCH 29.8 MCHC 29.9 L RDW 13.5 Plt Count 91 L MPV 10.0 Immature Gran % (Auto) 0.0 Neut % (Auto) 70.7 Lymph % (Auto) 15.5 L Mckenzie % (Auto) 9.1 Eos % (Auto) 4.3 H Baso % (Auto) 0.4 Lymph # (Auto) 0.4 L Mckenzie # (Auto) 0.2 Eos # (Auto) 0.1 Baso # (Auto) 0.0 Abs Immat Gran (auto) 0.00 Absolute Neuts (auto) 1.6 L Absolute Nucleated RBC 0.000 Nucleated RBC % (auto) 0.0 Smear Tech's Comments VERIFIED Smear Path Review SEE NOTE D-Dimer ABG pH ABG pCO2 ABG pO2 ABG HCO3 ABG O2 Saturation ABG Base Excess VBG pH VBG pCO2 VBG pO2 VBG HCO3 VBG O2 Saturation VBG Base Excess Oxygen Given Sodium Potassium Chloride Carbon Dioxide Anion Gap BUN Creatinine Estim Creat Clear Calc Estimated GFR POC Glucose 225 H 207 H Random Glucose Calcium Phosphorus Magnesium Total Bilirubin Direct Bilirubin AST ALT Alkaline Phosphatase Troponin I High Sens B-Natriuretic Peptide Total Protein Albumin Lipase Urine Color Urine Appearance Urine pH Ur Specific Roann Urine Protein Urine Glucose (UA) Urine Ketones Urine Blood Urine Nitrite Ur Leukocyte Esterase Urine RBC Urine WBC Ur Squamous Epith Cells Urine Bacteria U Random Total Protein Urine Creatinine C. difficile Toxin A&B C. difficile Antigen C. difficile Interpret COVID-19 (PINKY) COVID-19 [employer] 04/13/20 04/13/20 04/13/20 06:08 07:16 11:27 WBC RBC Hgb Hct MCV MCH MCHC RDW Plt Count MPV Immature Gran % (Auto) Neut % (Auto) Lymph % (Auto) Mckenzie % (Auto) Eos % (Auto) Baso % (Auto) Lymph # (Auto) Mckenzie # (Auto) Eos # (Auto) Baso # (Auto) Abs Immat Gran (auto) Absolute Neuts (auto) Absolute Nucleated RBC Nucleated RBC % (auto) Smear Tech's Comments Smear Path Review D-Dimer ABG pH ABG pCO2 ABG pO2 ABG HCO3 ABG O2 Saturation ABG Base Excess VBG pH VBG pCO2 VBG pO2 VBG HCO3 VBG O2 Saturation VBG Base Excess Oxygen Given Sodium 140 Potassium 3.9 Chloride 95 L Carbon Dioxide 38 H Anion Gap 11 L BUN 23 H Creatinine 1.36 Estim Creat Clear Calc 110.7 Estimated GFR 55 POC Glucose 201 H 247 H Random Glucose 214 H Calcium 8.7 Phosphorus 4.9 H Magnesium 1.8 Total Bilirubin Direct Bilirubin AST ALT Alkaline Phosphatase Troponin I High Sens B-Natriuretic Peptide Total Protein Albumin Lipase Urine Color Urine Appearance Urine pH Ur Specific Roann Urine Protein Urine Glucose (UA) Urine Ketones Urine Blood Urine Nitrite Ur Leukocyte Esterase Urine RBC Urine WBC Ur Squamous Epith Cells Urine Bacteria U Random Total Protein Urine Creatinine C. difficile Toxin A&B C. difficile Antigen C. difficile Interpret COVID-19 (PINKY) COVID-19 [employer] 01/01/21 01/01/21 01/02/21 16:22 21:18 05:56 WBC 2.8 L RBC 3.56 L Hgb 10.8 L Hct 34.9 L MCV 98.0 MCH 30.3 MCHC 30.9 L RDW 13.4 Plt Count 95 L MPV 10.0 Immature Gran % (Auto) 0.4 Neut % (Auto) 71.6 Lymph % (Auto) 14.0 L Mckenzie % (Auto) 9.7 Eos % (Auto) 3.9 Baso % (Auto) 0.4 Lymph # (Auto) 0.4 L Mckenzie # (Auto) 0.3 Eos # (Auto) 0.1 Baso # (Auto) 0.0 Abs Immat Gran (auto) 0.01 Absolute Neuts (auto) 2.0 Absolute Nucleated RBC 0.000 Nucleated RBC % (auto) 0.0 Smear Tech's Comments VERIFIED Smear Path Review D-Dimer ABG pH ABG pCO2 ABG pO2 ABG HCO3 ABG O2 Saturation ABG Base Excess VBG pH VBG pCO2 VBG pO2 VBG HCO3 VBG O2 Saturation VBG Base Excess Oxygen Given Sodium Potassium Chloride Carbon Dioxide Anion Gap BUN Creatinine Estim Creat Clear Calc Estimated GFR POC Glucose 254 H 250 H Random Glucose Calcium Phosphorus Magnesium Total Bilirubin Direct Bilirubin AST ALT Alkaline Phosphatase Troponin I High Sens B-Natriuretic Peptide Total Protein Albumin Lipase Urine Color Urine Appearance Urine pH Ur Specific Roann Urine Protein Urine Glucose (UA) Urine Ketones Urine Blood Urine Nitrite Ur Leukocyte Esterase Urine RBC Urine WBC Ur Squamous Epith Cells Urine Bacteria U Random Total Protein Urine Creatinine C. difficile Toxin A&B C. difficile Antigen C. difficile Interpret COVID-19 (PINKY) COVID-19 Clin Com 04/14/20 04/14/20 04/14/20 05:56 07:35 11:18 WBC RBC Hgb Hct MCV MCH MCHC RDW Plt Count MPV Immature Gran % (Auto) Neut % (Auto) Lymph % (Auto) Mckenzie % (Auto) Eos % (Auto) Baso % (Auto) Lymph # (Auto) Mckenzie # (Auto) Eos # (Auto) Baso # (Auto) Abs Immat Gran (auto) Absolute Neuts (auto) Absolute Nucleated RBC Nucleated RBC % (auto) Smear Tech's Comments Smear Path Review D-Dimer ABG pH ABG pCO2 ABG pO2 ABG HCO3 ABG O2 Saturation ABG Base Excess VBG pH VBG pCO2 VBG pO2 VBG HCO3 VBG O2 Saturation VBG Base Excess Oxygen Given Sodium 141 Potassium 4.0 Chloride 95 L Carbon Dioxide 37 H Anion Gap 13 BUN 31 H Creatinine 1.50 H Estim Creat Clear Calc 93.5 Estimated GFR 50 POC Glucose 218 H 245 H Random Glucose 221 H Calcium 8.6 Phosphorus 4.9 H Magnesium 1.5 L Total Bilirubin Direct Bilirubin AST ALT Alkaline Phosphatase Troponin I High Sens B-Natriuretic Peptide Total Protein Albumin Lipase Urine Color Urine Appearance Urine pH Ur Specific Roann Urine Protein Urine Glucose (UA) Urine Ketones Urine Blood Urine Nitrite Ur Leukocyte Esterase Urine RBC Urine WBC Ur Squamous Epith Cells Urine Bacteria U Random Total Protein Urine Creatinine C. difficile Toxin A&B C. difficile Antigen C. difficile Interpret COVID-19 (PINKY) COVID-19 Clin Com 04/14/20 04/14/20 04/15/20 16:07 19:41 06:07 WBC 3.0 L RBC 3.46 L Hgb 10.3 L Hct 33.7 L MCV 97.4 MCH 29.8 MCHC 30.6 L RDW 13.2 Plt Count 89 L MPV 10.4 Immature Gran % (Auto) 0.0 Neut % (Auto) 71.4 Lymph % (Auto) 17.2 L Mckenzie % (Auto) 7.7 Eos % (Auto) 3.4 Baso % (Auto) 0.3 Lymph # (Auto) 0.5 L Mckenzie # (Auto) 0.2 Eos # (Auto) 0.1 Baso # (Auto) 0.0 Abs Immat Gran (auto) 0.00 Absolute Neuts (auto) 2.1 Absolute Nucleated RBC 0.000 Nucleated RBC % (auto) 0.0 Smear Tech's Comments VERIFIED Smear Path Review D-Dimer ABG pH ABG pCO2 ABG pO2 ABG HCO3 ABG O2 Saturation ABG Base Excess VBG pH VBG pCO2 VBG pO2 VBG HCO3 VBG O2 Saturation VBG Base Excess Oxygen Given Sodium Potassium Chloride Carbon Dioxide Anion Gap BUN Creatinine Estim Creat Clear Calc Estimated GFR POC Glucose 283 H 269 H Random Glucose Calcium Phosphorus Magnesium Total Bilirubin Direct Bilirubin AST ALT Alkaline Phosphatase Troponin I High Sens B-Natriuretic Peptide Total Protein Albumin Lipase Urine Color Urine Appearance Urine pH Ur Specific Roann Urine Protein Urine Glucose (UA) Urine Ketones Urine Blood Urine Nitrite Ur Leukocyte Esterase Urine RBC Urine WBC Ur Squamous Epith Cells Urine Bacteria U Random Total Protein Urine Creatinine C. difficile Toxin A&B C. difficile Antigen C. difficile Interpret COVID-19 (PINKY) COVID-19 Clin Com 04/15/20 04/15/20 04/15/20 06:07 07:45 11:16 WBC RBC Hgb Hct MCV MCH MCHC RDW Plt Count MPV Immature Gran % (Auto) Neut % (Auto) Lymph % (Auto) Mckenzie % (Auto) Eos % (Auto) Baso % (Auto) Lymph # (Auto) Mckenzie # (Auto) Eos # (Auto) Baso # (Auto) Abs Immat Gran (auto) Absolute Neuts (auto) Absolute Nucleated RBC Nucleated RBC % (auto) Smear Tech's Comments Smear Path Review D-Dimer ABG pH ABG pCO2 ABG pO2 ABG HCO3 ABG O2 Saturation ABG Base Excess VBG pH VBG pCO2 VBG pO2 VBG HCO3 VBG O2 Saturation VBG Base Excess Oxygen Given Sodium 141 Potassium 4.0 Chloride 93 L Carbon Dioxide 39 H Anion Gap 13 BUN 35 H Creatinine 1.49 H Estim Creat Clear Calc 94.1 Estimated GFR 50 POC Glucose 225 H 285 H Random Glucose 229 H Calcium 8.6 Phosphorus 4.7 H Magnesium 1.4 L* Total Bilirubin Direct Bilirubin AST ALT Alkaline Phosphatase Troponin I High Sens B-Natriuretic Peptide Total Protein Albumin Lipase Urine Color Urine Appearance Urine pH Ur Specific Roann Urine Protein Urine Glucose (UA) Urine Ketones Urine Blood Urine Nitrite Ur Leukocyte Esterase Urine RBC Urine WBC Ur Squamous Epith Cells Urine Bacteria U Random Total Protein Urine Creatinine C. difficile Toxin A&B C. difficile Antigen C. difficile Interpret COVID-19 (PINKY) COVID-19 Clin Com 04/15/20 04/15/20 04/16/20 16:17 19:54 05:57 WBC 2.9 L RBC 3.69 L Hgb 11.1 L Hct 36.0 L MCV 97.6 MCH 30.1 MCHC 30.8 L RDW 13.2 Plt Count 87 L MPV 10.8 Immature Gran % (Auto) 0.3 Neut % (Auto) 71.2 Lymph % (Auto) 16.8 L Mckenzie % (Auto) 7.6 Eos % (Auto) 3.8 Baso % (Auto) 0.3 Lymph # (Auto) 0.5 L Mckenzie # (Auto) 0.2 Eos # (Auto) 0.1 Baso # (Auto) 0.0 Abs Immat Gran (auto) 0.01 Absolute Neuts (auto) 2.1 Absolute Nucleated RBC 0.000 Nucleated RBC % (auto) 0.0 Smear Tech's Comments VERIFIED Smear Path Review D-Dimer ABG pH ABG pCO2 ABG pO2 ABG HCO3 ABG O2 Saturation ABG Base Excess VBG pH VBG pCO2 VBG pO2 VBG HCO3 VBG O2 Saturation VBG Base Excess Oxygen Given Sodium Potassium Chloride Carbon Dioxide Anion Gap BUN Creatinine Estim Creat Clear Calc Estimated GFR POC Glucose 335 H 294 H Random Glucose Calcium Phosphorus Magnesium Total Bilirubin Direct Bilirubin AST ALT Alkaline Phosphatase Troponin I High Sens B-Natriuretic Peptide Total Protein Albumin Lipase Urine Color Urine Appearance Urine pH Ur Specific Roann Urine Protein Urine Glucose (UA) Urine Ketones Urine Blood Urine Nitrite Ur Leukocyte Esterase Urine RBC Urine WBC Ur Squamous Epith Cells Urine Bacteria U Random Total Protein Urine Creatinine C. difficile Toxin A&B C. difficile Antigen C. difficile Interpret COVID-19 (PINKY) COVID-19 Clin Com 04/16/20 04/16/20 04/16/20 05:57 07:27 11:23 WBC RBC Hgb Hct MCV MCH MCHC RDW Plt Count MPV Immature Gran % (Auto) Neut % (Auto) Lymph % (Auto) Mckenzie % (Auto) Eos % (Auto) Baso % (Auto) Lymph # (Auto) Mckenzie # (Auto) Eos # (Auto) Baso # (Auto) Abs Immat Gran (auto) Absolute Neuts (auto) Absolute Nucleated RBC Nucleated RBC % (auto) Smear Tech's Comments Smear Path Review D-Dimer ABG pH ABG pCO2 ABG pO2 ABG HCO3 ABG O2 Saturation ABG Base Excess VBG pH VBG pCO2 VBG pO2 VBG HCO3 VBG O2 Saturation VBG Base Excess Oxygen Given Sodium 141 Potassium 4.0 Chloride 93 L Carbon Dioxide 39 H Anion Gap 13 BUN 35 H Creatinine 1.51 H Estim Creat Clear Calc 97.8 Estimated GFR 49 POC Glucose 289 H 272 H Random Glucose 257 H Calcium 8.9 Phosphorus 4.7 H Magnesium 1.6 Total Bilirubin Direct Bilirubin AST ALT Alkaline Phosphatase Troponin I High Sens B-Natriuretic Peptide Total Protein Albumin Lipase Urine Color Urine Appearance Urine pH Ur Specific Roann Urine Protein Urine Glucose (UA) Urine Ketones Urine Blood Urine Nitrite Ur Leukocyte Esterase Urine RBC Urine WBC Ur Squamous Epith Cells Urine Bacteria U Random Total Protein Urine Creatinine C. difficile Toxin A&B C. difficile Antigen C. difficile Interpret COVID-19 (PINKY) COVID-19 Clin Com 04/16/20 04/16/20 04/16/20 16:49 20:48 Unknown WBC RBC Hgb Hct MCV MCH MCHC RDW Plt Count MPV Immature Gran % (Auto) Neut % (Auto) Lymph % (Auto) Mckenzie % (Auto) Eos % (Auto) Baso % (Auto) Lymph # (Auto) Mckenzie # (Auto) Eos # (Auto) Baso # (Auto) Abs Immat Gran (auto) Absolute Neuts (auto) Absolute Nucleated RBC Nucleated RBC % (auto) Smear Tech's Comments Smear Path Review D-Dimer ABG pH ABG pCO2 ABG pO2 ABG HCO3 ABG O2 Saturation ABG Base Excess VBG pH VBG pCO2 VBG pO2 VBG HCO3 VBG O2 Saturation VBG Base Excess Oxygen Given Sodium Potassium Chloride Carbon Dioxide Anion Gap BUN Creatinine Estim Creat Clear Calc Estimated GFR POC Glucose 285 H 283 H Random Glucose Calcium Phosphorus Magnesium Total Bilirubin Direct Bilirubin AST ALT Alkaline Phosphatase Troponin I High Sens B-Natriuretic Peptide Total Protein Albumin Lipase Urine Color Urine Appearance Urine pH Ur Specific Roann Urine Protein Urine Glucose (UA) Urine Ketones Urine Blood Urine Nitrite Ur Leukocyte Esterase Urine RBC Urine WBC Ur Squamous Epith Cells Urine Bacteria U Random Total Protein Urine Creatinine C. difficile Toxin A&B Negative C. difficile Antigen Negative C. difficile Interpret SEE NOTE COVID-19 (PINKY) COVID-19 Clin Com 04/17/20 04/17/20 04/17/20 05:59 07:32 08:30 WBC RBC Hgb Hct MCV MCH MCHC RDW Plt Count MPV Immature Gran % (Auto) Neut % (Auto) Lymph % (Auto) Mckenzie % (Auto) Eos % (Auto) Baso % (Auto) Lymph # (Auto) Mckenzie # (Auto) Eos # (Auto) Baso # (Auto) Abs Immat Gran (auto) Absolute Neuts (auto) Absolute Nucleated RBC Nucleated RBC % (auto) Smear Tech's Comments Smear Path Review D-Dimer ABG pH 7.38 ABG pCO2 64 H* ABG pO2 51 L ABG HCO3 37 H ABG O2 Saturation 82.7 ABG Base Excess 9.6 VBG pH VBG pCO2 VBG pO2 VBG HCO3 VBG O2 Saturation VBG Base Excess Oxygen Given ROOM AIR Sodium Potassium Chloride Carbon Dioxide Anion Gap BUN Creatinine Estim Creat Clear Calc Estimated GFR POC Glucose 325 H Random Glucose Calcium Phosphorus Magnesium 1.7 Total Bilirubin Direct Bilirubin AST ALT Alkaline Phosphatase Troponin I High Sens B-Natriuretic Peptide Total Protein Albumin Lipase Urine Color Urine Appearance Urine pH Ur Specific Roann Urine Protein Urine Glucose (UA) Urine Ketones Urine Blood Urine Nitrite Ur Leukocyte Esterase Urine RBC Urine WBC Ur Squamous Epith Cells Urine Bacteria U Random Total Protein Urine Creatinine C. difficile Toxin A&B C. difficile Antigen C. difficile Interpret COVID-19 (PINKY) COVID-19 [employer] 04/17/20 04/17/20 04/17/20 11:50 16:56 20:47 WBC RBC Hgb Hct MCV MCH MCHC RDW Plt Count MPV Immature Gran % (Auto) Neut % (Auto) Lymph % (Auto) Mckenzie % (Auto) Eos % (Auto) Baso % (Auto) Lymph # (Auto) Mckenzie # (Auto) Eos # (Auto) Baso # (Auto) Abs Immat Gran (auto) Absolute Neuts (auto) Absolute Nucleated RBC Nucleated RBC % (auto) Smear Tech's Comments Smear Path Review D-Dimer ABG pH ABG pCO2 ABG pO2 ABG HCO3 ABG O2 Saturation ABG Base Excess VBG pH VBG pCO2 VBG pO2 VBG HCO3 VBG O2 Saturation VBG Base Excess Oxygen Given Sodium Potassium Chloride Carbon Dioxide Anion Gap BUN Creatinine Estim Creat Clear Calc Estimated GFR POC Glucose 330 H 310 H 316 H Random Glucose Calcium Phosphorus Magnesium Total Bilirubin Direct Bilirubin AST ALT Alkaline Phosphatase Troponin I High Sens B-Natriuretic Peptide Total Protein Albumin Lipase Urine Color Urine Appearance Urine pH Ur Specific Roann Urine Protein Urine Glucose (UA) Urine Ketones Urine Blood Urine Nitrite Ur Leukocyte Esterase Urine RBC Urine WBC Ur Squamous Epith Cells Urine Bacteria U Random Total Protein Urine Creatinine C. difficile Toxin A&B C. difficile Antigen C. difficile Interpret COVID-19 (PINKY) COVID-19 [email or web address] 04/18/20 04/18/20 04/18/20 05:33 07:42 11:33 WBC RBC Hgb Hct MCV MCH MCHC RDW Plt Count MPV Immature Gran % (Auto) Neut % (Auto) Lymph % (Auto) Mckenzie % (Auto) Eos % (Auto) Baso % (Auto) Lymph # (Auto) Mckenzie # (Auto) Eos # (Auto) Baso # (Auto) Abs Immat Gran (auto) Absolute Neuts (auto) Absolute Nucleated RBC Nucleated RBC % (auto) Smear Tech's Comments Smear Path Review D-Dimer ABG pH ABG pCO2 ABG pO2 ABG HCO3 ABG O2 Saturation ABG Base Excess VBG pH VBG pCO2 VBG pO2 VBG HCO3 VBG O2 Saturation VBG Base Excess Oxygen Given Sodium 138 Potassium 4.0 Chloride 91 L Carbon Dioxide 36 H Anion Gap 15 BUN 44 H Creatinine 1.78 H Estim Creat Clear Calc 83.2 Estimated GFR 41 POC Glucose 298 H 340 H Random Glucose 315 H Calcium 8.9 Phosphorus Magnesium Total Bilirubin Direct Bilirubin AST ALT Alkaline Phosphatase Troponin I High Sens B-Natriuretic Peptide Total Protein Albumin Lipase Urine Color Urine Appearance Urine pH Ur Specific Roann Urine Protein Urine Glucose (UA) Urine Ketones Urine Blood Urine Nitrite Ur Leukocyte Esterase Urine RBC Urine WBC Ur Squamous Epith Cells Urine Bacteria U Random Total Protein Urine Creatinine C. difficile Toxin A&B C. difficile Antigen C. difficile Interpret COVID-19 (PINKY) COVID-19 [facility] 04/18/20 04/18/20 04/19/20 15:23 20:33 07:40 WBC RBC Hgb Hct MCV MCH MCHC RDW Plt Count MPV Immature Gran % (Auto) Neut % (Auto) Lymph % (Auto) Mckenzie % (Auto) Eos % (Auto) Baso % (Auto) Lymph # (Auto) Mckenzie # (Auto) Eos # (Auto) Baso # (Auto) Abs Immat Gran (auto) Absolute Neuts (auto) Absolute Nucleated RBC Nucleated RBC % (auto) Smear Tech's Comments Smear Path Review D-Dimer ABG pH ABG pCO2 ABG pO2 ABG HCO3 ABG O2 Saturation ABG Base Excess VBG pH VBG pCO2 VBG pO2 VBG HCO3 VBG O2 Saturation VBG Base Excess Oxygen Given Sodium Potassium Chloride Carbon Dioxide Anion Gap BUN Creatinine Estim Creat Clear Calc Estimated GFR POC Glucose 356 H* 323 H 291 H Random Glucose Calcium Phosphorus Magnesium Total Bilirubin Direct Bilirubin AST ALT Alkaline Phosphatase Troponin I High Sens B-Natriuretic Peptide Total Protein Albumin Lipase Urine Color Urine Appearance Urine pH Ur Specific Roann Urine Protein Urine Glucose (UA) Urine Ketones Urine Blood Urine Nitrite Ur Leukocyte Esterase Urine RBC Urine WBC Ur Squamous Epith Cells Urine Bacteria U Random Total Protein Urine Creatinine C. difficile Toxin A&B C. difficile Antigen C. difficile Interpret COVID-19 (PINKY) COVID-19 [facility] 04/19/20 04/19/20 04/19/20 09:03 11:24 16:00 WBC RBC Hgb Hct MCV MCH MCHC RDW Plt Count MPV Immature Gran % (Auto) Neut % (Auto) Lymph % (Auto) Mckenzie % (Auto) Eos % (Auto) Baso % (Auto) Lymph # (Auto) Mckenzie # (Auto) Eos # (Auto) Baso # (Auto) Abs Immat Gran (auto) Absolute Neuts (auto) Absolute Nucleated RBC Nucleated RBC % (auto) Smear Tech's Comments Smear Path Review D-Dimer ABG pH ABG pCO2 ABG pO2 ABG HCO3 ABG O2 Saturation ABG Base Excess VBG pH VBG pCO2 VBG pO2 VBG HCO3 VBG O2 Saturation VBG Base Excess Oxygen Given Sodium 136 Potassium 4.3 Chloride 89 L Carbon Dioxide 37 H Anion Gap 14 BUN 55 H Creatinine 1.96 H Estim Creat Clear Calc 75.5 Estimated GFR 36 POC Glucose 345 H 337 H Random Glucose 339 H Calcium 9.0 Phosphorus Magnesium Total Bilirubin Direct Bilirubin AST ALT Alkaline Phosphatase Troponin I High Sens B-Natriuretic Peptide Total Protein Albumin Lipase Urine Color Urine Appearance Urine pH Ur Specific Roann Urine Protein Urine Glucose (UA) Urine Ketones Urine Blood Urine Nitrite Ur Leukocyte Esterase Urine RBC Urine WBC Ur Squamous Epith Cells Urine Bacteria U Random Total Protein Urine Creatinine C. difficile Toxin A&B C. difficile Antigen C. difficile Interpret COVID-19 (PINKY) COVID-19 Clin Com 04/19/20 04/20/20 04/20/20 19:31 07:34 11:41 WBC RBC Hgb Hct MCV MCH MCHC RDW Plt Count MPV Immature Gran % (Auto) Neut % (Auto) Lymph % (Auto) Mckenzie % (Auto) Eos % (Auto) Baso % (Auto) Lymph # (Auto) Mckenzie # (Auto) Eos # (Auto) Baso # (Auto) Abs Immat Gran (auto) Absolute Neuts (auto) Absolute Nucleated RBC Nucleated RBC % (auto) Smear Tech's Comments Smear Path Review D-Dimer ABG pH ABG pCO2 ABG pO2 ABG HCO3 ABG O2 Saturation ABG Base Excess VBG pH VBG pCO2 VBG pO2 VBG HCO3 VBG O2 Saturation VBG Base Excess Oxygen Given Sodium Potassium Chloride Carbon Dioxide Anion Gap BUN Creatinine Estim Creat Clear Calc Estimated GFR POC Glucose 327 H 342 H 427 H* Random Glucose Calcium Phosphorus Magnesium Total Bilirubin Direct Bilirubin AST ALT Alkaline Phosphatase Troponin I High Sens B-Natriuretic Peptide Total Protein Albumin Lipase Urine Color Urine Appearance Urine pH Ur Specific Roann Urine Protein Urine Glucose (UA) Urine Ketones Urine Blood Urine Nitrite Ur Leukocyte Esterase Urine RBC Urine WBC Ur Squamous Epith Cells Urine Bacteria U Random Total Protein Urine Creatinine C. difficile Toxin A&B C. difficile Antigen C. difficile Interpret COVID-19 (PINKY) COVID-19 Clin [email or web address] 04/20/20 04/20/20 04/20/20 12:02 16:25 20:33 WBC RBC Hgb Hct MCV MCH MCHC RDW Plt Count MPV Immature Gran % (Auto) Neut % (Auto) Lymph % (Auto) Mckenzie % (Auto) Eos % (Auto) Baso % (Auto) Lymph # (Auto) Mckenzie # (Auto) Eos # (Auto) Baso # (Auto) Abs Immat Gran (auto) Absolute Neuts (auto) Absolute Nucleated RBC Nucleated RBC % (auto) Smear Tech's Comments Smear Path Review D-Dimer ABG pH ABG pCO2 ABG pO2 ABG HCO3 ABG O2 Saturation ABG Base Excess VBG pH VBG pCO2 VBG pO2 VBG HCO3 VBG O2 Saturation VBG Base Excess Oxygen Given Sodium 137 Potassium 4.9 Chloride 92 L Carbon Dioxide 37 H Anion Gap 13 BUN 58 H Creatinine 1.72 H Estim Creat Clear Calc 84.7 Estimated GFR 42 POC Glucose 381 H* 356 H* Random Glucose 420 H* Calcium 9.2 Phosphorus Magnesium Total Bilirubin Direct Bilirubin AST ALT Alkaline Phosphatase Troponin I High Sens B-Natriuretic Peptide Total Protein Albumin Lipase Urine Color Urine Appearance Urine pH Ur Specific Roann Urine Protein Urine Glucose (UA) Urine Ketones Urine Blood Urine Nitrite Ur Leukocyte Esterase Urine RBC Urine WBC Ur Squamous Epith Cells Urine Bacteria U Random Total Protein Urine Creatinine C. difficile Toxin A&B C. difficile Antigen C. difficile Interpret COVID-19 (PINKY) COVID-19 Clin Com 04/21/20 04/21/20 04/21/20 05:37 07:48 11:16 WBC RBC Hgb Hct MCV MCH MCHC RDW Plt Count MPV Immature Gran % (Auto) Neut % (Auto) Lymph % (Auto) Mckenzie % (Auto) Eos % (Auto) Baso % (Auto) Lymph # (Auto) Mckenzie # (Auto) Eos # (Auto) Baso # (Auto) Abs Immat Gran (auto) Absolute Neuts (auto) Absolute Nucleated RBC Nucleated RBC % (auto) Smear Tech's Comments Smear Path Review D-Dimer ABG pH ABG pCO2 ABG pO2 ABG HCO3 ABG O2 Saturation ABG Base Excess VBG pH VBG pCO2 VBG pO2 VBG HCO3 VBG O2 Saturation VBG Base Excess Oxygen Given Sodium 135 Potassium 4.4 Chloride 91 L Carbon Dioxide 35 H Anion Gap 13 BUN 63 H Creatinine 1.94 H Estim Creat Clear Calc 75.1 Estimated GFR 37 POC Glucose 381 H* 373 H* Random Glucose 377 H* Calcium 8.8 Phosphorus Magnesium Total Bilirubin Direct Bilirubin AST ALT Alkaline Phosphatase Troponin I High Sens B-Natriuretic Peptide Total Protein Albumin Lipase Urine Color Urine Appearance Urine pH Ur Specific Roann Urine Protein Urine Glucose (UA) Urine Ketones Urine Blood Urine Nitrite Ur Leukocyte Esterase Urine RBC Urine WBC Ur Squamous Epith Cells Urine Bacteria U Random Total Protein Urine Creatinine C. difficile Toxin A&B C. difficile Antigen C. difficile Interpret COVID-19 (PINKY) COVID-19 Clin Com Discharge Plan Discharge Anticipated Discharge Date/Time: 04/20/20 13:30 Patient Disposition: Home Health Service Referrals: [facility] [Other] (PT WILL CALL TO SELF-[facility]UME [facility] PRIOR TO DC ) [facility] [Other] ([facility] WILL [facility] SERVICES ON Thursday04/22/20) Howie De La Torre MD [Primary Care Provider] - Discharge Medications: New spironolactone 25 mg Tablet 25 mg PO DAILY Qty: 30 RF: 0 lisinopril 5 mg Tablet 5 mg PO DAILY Qty: 30 RF: 0 Continued Narcan 4 mg/actuation spray,non-aerosol 4 mg intranasal Q2M PRN (Reason: opioid overdose) Qty: 2 RF: 1 dicyclomine 20 mg tablet 20 mg PO QID Qty: 120 RF: 8 (DME) facial-body wipes Misc See Rx Instructions .ROUTE .MEDSUPPLY Qty: 384 RF: 0 (DME) disposable gloves [Nitrile Exam Gloves] Misc See Rx Instructions .ROUTE .MEDSUPPLY Qty: 1000 RF: 0 miscellaneous medical supply Misc See Rx Instructions miscellaneous .COMPLEX Qty: 1 RF: 0 levothyroxine 75 mcg tablet 37.5 mcg PO DAILY RF: 0 acetaminophen [Tylenol Extra Strength] 500 mg tablet 1,000 mg PO Q8-10H PRN (Reason: Pain) RF: 0 aspirin [Adult Low Dose Aspirin] 81 mg tablet,delayed release (DR/EC) 81 mg PO DAILY RF: 0 calcium carbonate 500 mg calcium (1,250 mg) tablet 500 mg PO DAILY RF: 0 clonidine HCl 0.1 mg tablet 0.1 mg PO BID RF: 0 cyclobenzaprine 5 mg tablet 5 mg PO TID PRN (Reason: Pain) RF: 0 ferrous sulfate 325 mg (65 mg iron) tablet 325 mg PO DAILY RF: 0 fluticasone propionate [Allergy Relief (fluticasone)] 50 mcg/actuation spray,suspension 1 spray intranasal BID RF: 0 melatonin 3 mg capsule 6 mg PO BEDTIME PRN (Reason: Sleep) RF: 0 omeprazole 20 mg capsule,delayed release(DR/EC) 20 mg PO BID RF: 0 pravastatin 10 mg tablet 10 mg PO BEDTIME RF: 0 topiramate 100 mg tablet 100 mg PO BEDTIME RF: 0 trazodone 50 mg tablet 50 mg PO BEDTIME PRN (Reason: Sleep) RF: 0 morphine 15 mg tablet 15 mg PO Q6H PRN (Reason: pain) 30 Days Qty: 120 RF: 0 Changed torsemide 20 mg tablet 40 mg PO DAILY Qty: 0 RF: 0 Humulin R U-500 (Conc) Kwikpen 500 unit/mL (3 mL) insulin pen 75 unit subcut BID Qty: 0 RF: 0 Discontinued metformin 500 mg tablet 500 mg PO DAILY RF: 0 Belbuca 600 mcg film 600 mcg buccal Q12H 30 Days Qty: 60 RF: 0 No Action cholecalciferol (vitamin D3) 25 mcg (1,000 unit) capsule 25 mcg PO DAILY Qty: 90 RF: 8 loperamide 2 mg Capsule 2 mg PO Q4H PRN (Reason: Diarrhea) RF: 0 Discharge Orders: Discharge Order (Routine); Ordered 04/21/20 Ordered By: Main Gonzalez Diet: advance to usual diet and diabetic diet Activity on Discharge: As tolerated Visit Report Forms: Patient Portal Discharge page Care Plan Goals: Prevent rehospitalization and control of heart failure and copd Health Concerns: Moribid obesity, hypoventilation, copd and heart failure Plan of Treatment: Follow direction direction with medication adjustment with Torseminde, insulin and avoid excess water, check your blood sugar before meals and at bedtime. Use BiPAP as directed and follow up with your Doctor in a week, call for appointment. Starting tomorrow morning, take insulin RU 500. 75 unit in the morning and 75 units in the afternoon. Call your diabetic doctor on Thursday for further adjustment in insulin Discharge Date/Time: 04/21/20 17:35
[2020-04-21 16:21] LABS: Glucose, Whole Blood 394 mg/dL (60-115)
[2020-04-21] MEDS: Cyclobenzaprine HCl 5 MG TABLET PO (16:58)
[2020-04-21] MEDS: Insulin Glargine,Hum.rec.anlog 100 UNIT/ML 10 ML VIAL 35 UNIT SUBCUT (17:25)
== END 2020-04-21 17:35 | disposition home health service (06) | DRG 291 ==
LOC: HO.ED 20:16 → HO.IMC 23:03 → HO.ICU 04-08 13:47 → HO.IMC 04-11 16:36
PROVIDERS: Anesthesiology; Internal Medicine; Internal Medicine Cardiovascular Disease; Internal Medicine Nephrology; Physician Assistant; Physician Assistant Medical; Admitting Provider Internal Medicine; Emergency Provider Emergency Medicine; PCP Internal Medicine; Visit Provider Internal Medicine
DX: I13.0 Hypertensive heart and chronic kidney disease with heart failure and stage 1 through stage 4 chronic kidney disease, or unspecified chronic kidney disease (principal); J96.22 Acute and chronic respiratory failure with hypercapnia; J96.21 Acute and chronic respiratory failure with hypoxia; N17.9 Acute kidney failure, unspecified; E66.2 Morbid (severe) obesity with alveolar hypoventilation; Z68.45 Body mass index [BMI] 70 or greater, adult; F17.210 Nicotine dependence, cigarettes, uncomplicated; E11.22 Type 2 diabetes mellitus with diabetic chronic kidney disease; Z71.6 Tobacco abuse counseling; Z20.828 Contact with and (suspected) exposure to other viral communicable diseases; I27.81 Cor pulmonale (chronic); N18.30 Chronic kidney disease, stage 3 unspecified; I27.29 Other secondary pulmonary hypertension; E83.42 Hypomagnesemia; I50.813 Acute on chronic right heart failure; G89.29 Other chronic pain; Z88.0 Allergy status to penicillin; Z89.511 Acquired absence of right leg below knee; Z79.4 Long term (current) use of insulin; Z79.51 Long term (current) use of inhaled steroids; Z79.82 Long term (current) use of aspirin; Z79.890 Hormone replacement therapy; Z79.899 Other long term (current) drug therapy
CPT/HCPCS: 36415; 36600; 71045; 78580; 80048; 80076; 81001; 82803; 82947; 83690; 83735; 83880; 84100; 84156; 84484; 85025; 85379; 87324; 87449; 87635; 93005; 93306; 94640; 94660; 94799; 96374; 97110; 97163; 97167; 97530; 99225; 99226; 99232; 99285; A9540; C1758; J0571; J1170; J1940; J2270; J3475; Q9957

== ENCOUNTER 2020-05-03 15:33 | Inpatient (IN) | payer MEDICARE, MEDICAID, SELFPAY ==
[2020-05-03] VITALS (10 sets, daily range): BP systolic 105–156; BP diastolic 41–69; PULSE 75–105; RESP 18–28; TEMP 36.9–37.6; O2SAT 50–100; BMI 61.7; BMI 63.8
--- NOTE | 2020-05-03 15:53 | ECG_ITS ---
Test Reason : DIFF BREATHING Blood Pressure : / mmHG Vent. Rate : 089 BPM Atrial Rate : 089 BPM P-R Int : 168 ms QRS Dur : 088 ms QT Int : 376 ms P-R-T Axes : 081 056 054 degrees QTc Int : 457 ms Normal sinus rhythm Normal ECG No significant changes when compared with the previous EKG of 06 apr 2020 Referred By: Moise Garg Electronically Signed By:QUINTON SAENZ
--- NOTE | 2020-05-03 15:53 | XR_ITS ---
EXAMINATION: XR CHEST CLINICAL INFORMATION: Shortness of breath COMPARISON: 04/08/2020 TECHNIQUE: Frontal view of the chest was obtained. FINDINGS: Significant bilateral opacities right greater than left lung. Consistent with infiltrate versus edema. No obvious effusion. XR/XR chest 1V IMPRESSION: Significant flocculent bilateral opacities consistent with diffuse infiltrate and/or edema
--- NOTE | 2020-05-03 16:14 | ED_ITS ---
HPI - SOB/Dyspnea General Chief Complaint: Dyspnea <Moise Grag NP - Last Filed: 05/03/20 21:21> Stated Complaint: sob covid <Moise Garg NP - Last Filed: 05/03/20 21:21> Time Seen by Provider: 05/03/20 15:52 <Moise Garg NP - Last Filed: 05/03/20 21:21> Source: EMS <Moise Garg NP - Last Filed: 05/03/20 21:21> Mode of arrival: EMS <Moise Garg NP - Last Filed: 05/03/20 21:21> Limitations: no limitations <Moise Garg NP - Last Filed: 05/03/20 21:21> History of Present Illness HPI Narrative: This is a 49-year-old male presenting via EMS from home with complaint of shortness of breath very poor historian in review of his medical record it appears that he has past medical history that is significant for chronic pain with opiate use disorder, hypertension, hyperlipidemia, diabetes, morbid obesity with history of congestive heart failure, COPD, obstructive sleep apnea on CPAP at night with poor compliance and surgical history of right [id number] amputation, hand surgery and kidney stones who was apparently admitted here a month ago and discharged with diagnosis of hyperventilation syndrome, new onset CHF, JOSE, opiate use disorder. He represents today via EMS with complaint of shortness of breath. It is reported by EMS that he was found to have room air oxygen of 50% upon their arrival placed on a non-rebreather and improved to 95%. Patient reports that he was diagnosed with COVID-19 on the of this month question last month. States he has been feeling like this for past several days. <Moise Garg NP - Last Filed: 05/03/20 21:21> MD elicited complaint: shortness of breath <Moise Garg NP - Last Filed: 05/03/20 21:21> Onset (ago): day(s) <Moise Gagr NP - Last Filed: 05/03/20 21:21> Timing: constant <Moise Garg NP - Last Filed: 05/03/20 21:21> Severity: severe <Moise Garg NP - Last Filed: 05/03/20 21:21> Exacerbating factors: nothing <Moise Garg NP - Last Filed: 05/03/20 21:21> Relieving factors: nothing <Moise Garg NP - Last Filed: 05/03/20 21:21> Treatment prior to arrival: oxygen <Moise Garg NP - Last Filed: 05/03/20 21:21> Related Data Home Medications: Home Medications Medication Instructions Recorded Confirmed acetaminophen 500 mg tablet 1,000 mg PO Q8-10H PRN 01/18/20 05/03/20 aspirin 81 mg tablet,delayed 81 mg PO DAILY 01/18/20 05/03/20 release calcium carbonate 500 mg calcium 500 mg PO DAILY 01/18/20 05/03/20 (1,250 mg) tablet clonidine HCl 0.1 mg tablet 0.1 mg PO BID 01/18/20 05/03/20 cyclobenzaprine 5 mg tablet 5 mg PO TID PRN 01/18/20 05/03/20 ferrous sulfate 325 mg (65 mg 325 mg PO DAILY 01/18/20 05/03/20 iron) tablet fluticasone propionate 50 1 spray INTRANASAL BID 01/18/20 05/03/20 mcg/actuation nasal spray,suspension melatonin 3 mg capsule 6 mg PO BEDTIME PRN 01/18/20 05/03/20 omeprazole 20 mg capsule,delayed 20 mg PO BID 01/18/20 05/03/20 release pravastatin 10 mg tablet 10 mg PO BEDTIME 01/18/20 05/03/20 topiramate 100 mg tablet 100 mg PO BEDTIME 01/18/20 05/03/20 trazodone 50 mg tablet 50 mg PO BEDTIME PRN 01/18/20 05/03/20 facial-body wipes #384 ea 02/20/20 05/02/20 levothyroxine 37.5 mcg PO DAILY 04/06/20 05/03/20 loperamide 2 mg PO Q4H PRN 05/03/20 05/03/20 Previous Rx's Medication Instructions Recorded naloxone 4 mg/actuation nasal spray 4 mg INTRANASAL Q2M PRN #2 ea 01/20/20 dicyclomine 20 mg tablet 20 mg PO QID #120 tab 02/09/20 disposable gloves #1000 ea 02/20/20 miscellaneous medical supply See Rx Instructions MISCELLANEOUS 03/12/20 .COMPLEX #1 ea morphine 15 mg immediate release 15 mg PO Q6H PRN 30 Days #120 tab 03/22/20 tablet torsemide 40 mg PO DAILY #0 tab 04/20/20 Humulin R U-500 (Conc) Kwikpen 75 unit SUBCUT BID #0 ml 04/21/20 lisinopril 5 mg PO DAILY #30 tab 04/21/20 spironolactone 25 mg PO DAILY #30 tab 04/21/20 cholecalciferol (vitamin D3) 25 25 mcg PO DAILY #90 cap 04/30/20 mcg (1,000 unit) capsule <Moise Garg NP - Last Filed: 05/03/20 21:21> Allergies/Adverse Reactions: Allergies Allergy/AdvReac Type Severity Reaction Status Date / Time penicillin V Allergy Unknown hives Verified 05/02/20 12:48 <Moise Garg NP - Last Filed: 05/03/20 21:21> Review of Systems Review of Systems: Reports starting, drowsy, in respiratory distress. <Moise Garg NP - Last Filed: 05/03/20 21:21> Yes Unobtainable due to mental condition <Moise Garg NP - Last Filed: 05/03/20 21:21> [facility] Past Medical History Medical History: Medical History (Updated 05/07/20 @ 17:09 by JEFFREY Renner) CHF (congestive heart failure) Chronic pain Congestive heart failure Diabetic neuropathy Dyspnea Gram negative sepsis Hypertension Morbid obesity New onset of congestive heart failure Obesity hypoventilation syndrome Opioid use disorder Phantom limb pain Respiratory failure requiring intubation Tick bite of back <Moise Garg NP - Last Filed: 05/03/20 21:21> Surgical History: Surgical History History of right lower limb amputation Hx of cholecystectomy <Moise Garg NP - Last Filed: 05/03/20 21:21> Family History Family History: Family History Father No problems noted. Mother No problems noted. <Moise Garg NP - Last Filed: 05/03/20 21:21> Social History Social History: Social History Household Members: Unknown / Unable to assess Housing: Unknown / Unable to assess Alcohol intake: never Smoking Status: Former smoker Tobacco Type: Cigarette Packs Per Day: 3 Cigarettes Per Day: 60.0 Years Smoked: 25 Substance Use Type: Opiates service: No Current occupational status: unemployed <Moise Garg NP - Last Filed: 05/03/20 21:21> Physical Exam Vital Signs: Vital Signs: Last Vital Signs Temp 104.4 F H 05/09/20 10:00 Pulse 86 05/09/20 10:00 Resp 22 H 05/09/20 10:00 BP 125/53 L 05/09/20 10:00 Pulse Ox 89 L 05/09/20 10:00 Body Mass Index 61.7 Reviewed <Moise Garg NP - Last Filed: 05/03/20 21:21> Vital Signs: Last Vital Signs Temp 104.4 F H 05/09/20 10:00 Pulse 86 05/09/20 10:00 Resp 22 H 05/09/20 10:00 BP 125/53 L 05/09/20 10:00 Pulse Ox 89 L 05/09/20 10:00 Body Mass Index 61.7 <Calderon Ruelas MD - Last Filed: 05/09/20 10:29> Const: General: acute distress (Respiratory) moderate; No intoxicated appearing <Moise Garg NP - Last Filed: 05/03/20 21:21> Nutritional Appearance: obese morbidly obese <Moise Garg NP - Last Filed: 05/03/20 21:21> Orientation/consciousness: patient oriented x3 <Moise Garg NP - Last Filed: 05/03/20 21:21> HENMT: Head: Yes normal to inspection <Moise Garg NP - Last Filed: 05/03/20 21:21> Ears: hearing grossly normal bilaterally <Moise Garg NP - Last Filed: 05/03/20 21:21> Eyes: General: appearance normal, both eyes and all related structures <Moise Garg NP - Last Filed: 05/03/20 21:21> Visual Quintero: normal visual quintero by confrontation <Moise Garg NP - Last Filed: 05/03/20 21:21> Neck: Neck: Yes normal visual inspection, No positive Brudzinski's sign, No positive Kernig's sign and No tender <Moise Garg NP - Last Filed: 05/03/20 21:21> Thyroid: Thyroid normal <Moise Garg SHELL MOLDING ROLLER BLAST OPERATOR - Last Filed: 05/03/20 21:21> Chest: Chest palpation & inspection: normal inspection of the chest <Moise Garg SHELL MOLDING ROLLER BLAST OPERATOR - Last Filed: 05/03/20 21:21> Resp: Effort & Inspection: normal respiratory effort <Moise Garg SHELL MOLDING ROLLER BLAST OPERATOR - Last Filed: 05/03/20 21:21> Auscultation: diminished lung sounds diffuse <Moise Garg SHELL MOLDING ROLLER BLAST OPERATOR - Last Filed: 05/03/20 21:21> Cardio: Jugular venous distension: no JVD <Moise Garg SHELL MOLDING ROLLER BLAST OPERATOR - Last Filed: 05/03/20 21:21> Rhythm: regular rhythm <Moise Garg SHELL MOLDING ROLLER BLAST OPERATOR - Last Filed: 05/03/20 21:21> Heart sounds: S1 normal heart sound present and S2 normal heart sound present <Moise Garg SHELL MOLDING ROLLER BLAST OPERATOR - Last Filed: 05/03/20 21:21> GI: Other: Obese, diffusely soft <Moise Garg SHELL MOLDING ROLLER BLAST OPERATOR - Last Filed: 05/03/20 21:21> Inspection: Yes normal to inspection <Moisenikole Garg SHELL MOLDING ROLLER BLAST OPERATOR - Last Filed: 05/03/20 21:21> Percussion: Yes normal to percussion <Moise Garg SHELL MOLDING ROLLER BLAST OPERATOR - Last Filed: 05/03/20 21:21> Auscultation: normal bowel sounds <Moise Garg SHELL MOLDING ROLLER BLAST OPERATOR - Last Filed: 05/03/20 21:21> : General: Yes no CVA tenderness <Moise Garg SHELL MOLDING ROLLER BLAST OPERATOR - Last Filed: 05/03/20 21:21> Back/Spine/Pelvis: Back: no CVA tenderness <Moise Garg NP - Last Filed: 05/03/20 21:21> Skin: General skin exam: no rashes or lesions noted <Moise Garg SHELL MOLDING ROLLER BLAST OPERATOR - Last Filed: 05/03/20 21:21> Neuro: General: patient oriented x3 <Moise Garg SHELL MOLDING ROLLER BLAST OPERATOR - Last Filed: 05/03/20 21:21> Extrem: General: Yes normal to inspection <Moise Garg NP - Last Filed: 05/03/20 21:21> Course Course Course Narrative: Labs with significant derangement H&H dropped by 3 points, occult stool ne gative. Worsening renal function, metabolic acidosis. Better on BiPAP maintaining his O2. Brenton discussed with attending, patient consented for transfusion center call family on the noted number no answer. Call placed to ICU attending <Moise Garg NP - Last Filed: 05/03/20 21:21> I have discussed the case and management with the JONE. Will transfuse and admit for anemia and CHF <Calderon Ruelas MD - Last Filed: 05/09/20 10:29> Reevaluation(s) Reevaluation #1: 1615 49-year-old male with significant history as noted above including CHF, COPD, obstructive sleep apnea presenting with shortness of breath question COVID positive recently appears somewhat drowsy and lethargic very poor historian most history gathered from prior EMR visit here. Hypoxic by EMS at 50% placed on a non-rebreather improved graduated to Venti mask here at 75% just hovering around 89-90%, we will go ahead and place him on his CPAP for positive pressure check labs, chest x-ray EKG. Differential diagnosis include but not limited to COPD exacerbation, hyperventilation syndrome, respiratory failure, COVID-19 infection, congestive heart failure, ACS, pulmonary embolism, viral syndrome. Sepsis screening; given recent hospitalization and multiple comorbidities he is afebrile and non tachycardic however lactic acid blood cultures drawn. <Moise Garg NP - Last Filed: 05/03/20 21:21> Proper hand hygiene, cap, gown and sterile gloves place worn. Patient prepped and draped in sterile fashion, 1% lidocaine used for anesthesia, sterile US cover used, central line placed using US. Central line 16cm at the neck. Sutured in place <Calderon Ruelas MD - Last Filed: 05/09/20 10:29> Consultations Consultation #1: Case discussed with Dr. Bryson ICU who evaluated patient at bedside with me given his significant comorbidities, multiple electrolyte derangements feel that patient would have better outcome if patient gets a central line and intubated for airway management and support. <Moise Garg NP - Last Filed: 05/03/20 21:21> Procedures Intubation Time out performed: Yes <Moise Garg NP - Last Filed: 05/03/20 21:21> sedative: other (Propofol, rocuronium) <Moise Garg NP - Last Filed: 05/03/20 21:21> Mg Given: 92 <Moise Garg NP - Last Filed: 05/03/20 21:21> paralytic: Rocuronium <Moise Garg NP - Last Filed: 05/03/20 21:21> Laryngoscope: other <Moise Garg NP - Last Filed: 05/03/20 21:21> Assist Device Used: other (Via guided) <Moise Garg NP - Last Filed: 05/03/20 21:21> ET Tube Size: 8 <Moise Garg NP - Last Filed: 05/03/20 21:21> ET Tube Uncuffed: Yes <Moise Garg NP - Last Filed: 05/03/20 21:21> Tube Secured Depth (cm): 25 <Moise Garg NP - Last Filed: 05/03/20 21:21> Tube Secured Location: lips <Moise Garg NP - Last Filed: 05/03/20 21:21> Tube Placement Confirmation: visualized tube passing through cords, equal breath sounds bilaterally, no breath sounds over epigastrium and confirmation by capnometry <Moise Garg NP - Last Filed: 05/03/20 21:21> Patient Tolerated Procedure: other (Severely obese very difficult intubation) <Moise Garg NP - Last Filed: 05/03/20 21:21> Intubation Complications: difficult intubation <Moise Garg NP - Last Filed: 05/03/20 21:21> Additional Comments: Intubated with assistance of Dr. Davies <Moise Garg NP - Last Filed: 05/03/20 21:21> MDM - SOB/Dyspnea Differential Diagnosis Differential diagnosis: Likely acute exacerbation of chronic obstructive airways disease, congestive heart failure, pneumonia and asthma with exacerbation; Unlikely pulmonary embolism, pleural effusion, sleep apnea and anemia <Moise Garg NP - Last Filed: 05/03/20 21:21> Medical Records Attestation: I reviewed the patient's medical records. <Moise Garg NP - Last Filed: 05/03/20 21:21> Lab Data Attestation: I reviewed the patient's lab results. <Moise Garg NP - Last Filed: 05/03/20 21:21> Result diagrams: : 05/09/20 05:47 05/09/20 05:47 <Moise Garg NP - Last Filed: 05/03/20 21:21> Labs: Lab Results 05/03/20 05/03/20 05/03/20 Range/Units 16:09 16:09 16:09 WBC 4.4 L (4.8-10.8) X10*3/uL RBC 2.62 L D (4.60-5.80) X10*6/uL Hgb 7.9 L D (14.0-18.0) g/dl Hct 25.7 L D (42-52) % MCV 98.1 H (80-98) fL MCH 30.2 (27.0-33.0) pg MCHC 30.7 L (31.0-36.0) g/dl RDW 17.4 H (11.0-16.0) % Plt Count 107 L (160-400) X10*3/uL MPV 11.0 (9.4-12.4) fL Immature Gran % (Auto) 1.8 H (0.0-0.4) % Neut % (Auto) 89.6 H (45-73) % Lymph % (Auto) 4.8 L (20-40) % [place] % (Auto) 3.4 (2-11) % Eos % (Auto) 0.2 (0-4) % Baso % (Auto) 0.2 (0-2) % Lymph # (Auto) 0.2 L (1.2-4.9) X10*3/uL [place] # (Auto) 0.2 (0.1-1.2) X10*3/uL Eos # (Auto) 0.0 (0.0-0.4) X10*3/uL Baso # (Auto) 0.0 (0.0-0.2) X10*3/uL Abs Immat Gran (auto) 0.08 H (0.00-0.03) X10*3/uL Absolute Neuts (auto) 3.9 (2.0-8.3) X10*3/uL Absolute Nucleated RBC 0.130 H (0.0-0.012) X10*3/uL Nucleated RBC % (auto) 3.0 H (0.0-0.2) /100WBC Smear Tech's Comments VERIFIED PT 18.8 H (10.8-13.0) SEC INR 1.6 H (0.9-1.1) APTT 27.8 (24.1-38.0) SEC D-Dimer 1964 NG/ML VBG pH (7.32-7.43) VBG pCO2 mmHg VBG pO2 mmHg VBG HCO3 mmol/L VBG O2 Saturation % VBG Base Excess mmol/L Sodium 135 (135-145) mmol/L Potassium 5.5 H D (3.3-5.1) mmol/l Chloride 96 (96-108) mmol/L Carbon Dioxide 24 (22-29) mmol/L Anion Gap 21 H (12-20) BUN 94 H* D (9-16) mg/dL Creatinine 2.74 H (0.5-1.4) mg/dL Estim Creat Clear Calc 52.2 Estimated GFR 25 Random Glucose 280 H (60-115) mg/dL Lactic Acid (0.5-2.0) mmol/L Calcium 6.5 L D (8.4-10.2) mg/dL Ferritin (20-250) ng/mL Total Bilirubin 1.0 (0.0-1.0) mg/dL AST 342 H (5-37) U/L ALT 292 H (0-40) U/L Alkaline Phosphatase 90 D (39-117) U/L Lactate Dehydrogenase 809 H (118-273) U/L Troponin I High Sens (<3.5-35.0) ng/L C-Reactive Protein 26.11 H (< or = 0.50) mg/dL B-Natriuretic Peptide (<100) pg/mL Total Protein 6.7 (6.5-8.0) g/dL Albumin 3.3 L (3.5-5.0) g/dL Procalcitonin ng/mL Coronavirus (PCR) (Negative) Influenza Type A (PCR) (Negative) Influenza Type B (PCR) (Negative) RSV RNA Qual (PCR) (Negative) Blood Type Antibody Screen Crossmatch 05/03/20 05/03/20 05/03/20 Range/Units 16:09 16:09 16:09 WBC (4.8-10.8) X10*3/uL RBC (4.60-5.80) X10*6/uL Hgb (14.0-18.0) g/dl Hct (42-52) % MCV (80-98) fL MCH (27.0-33.0) pg MCHC (31.0-36.0) g/dl RDW (11.0-16.0) % Plt Count (160-400) X10*3/uL MPV (9.4-12.4) fL Immature Gran % (Auto) (0.0-0.4) % Neut % (Auto) (45-73) % Lymph % (Auto) (20-40) % [place] % (Auto) (2-11) % Eos % (Auto) (0-4) % Baso % (Auto) (0-2) % Lymph # (Auto) (1.2-4.9) X10*3/uL [place] # (Auto) (0.1-1.2) X10*3/uL Eos # (Auto) (0.0-0.4) X10*3/uL Baso # (Auto) (0.0-0.2) X10*3/uL Abs Immat Gran (auto) (0.00-0.03) X10*3/uL Absolute Neuts (auto) (2.0-8.3) X10*3/uL Absolute Nucleated RBC (0.0-0.012) X10*3/uL Nucleated RBC % (auto) (0.0-0.2) /100WBC Smear Tech's Comments PT (10.8-13.0) SEC INR (0.9-1.1) APTT (24.1-38.0) SEC D-Dimer NG/ML VBG pH (7.32-7.43) VBG pCO2 mmHg VBG pO2 mmHg VBG HCO3 mmol/L VBG O2 Saturation % VBG Base Excess mmol/L Sodium (135-145) mmol/L Potassium (3.3-5.1) mmol/l Chloride (96-108) mmol/L Carbon Dioxide (22-29) mmol/L Anion Gap (12-20) BUN (9-16) mg/dL Creatinine (0.5-1.4) mg/dL Estim Creat Clear Calc Estimated GFR Random Glucose (60-115) mg/dL Lactic Acid 1.9 (0.5-2.0) mmol/L Calcium (8.4-10.2) mg/dL Ferritin 2874 H (20-250) ng/mL Total Bilirubin (0.0-1.0) mg/dL AST (5-37) U/L ALT (0-40) U/L Alkaline Phosphatase (39-117) U/L Lactate Dehydrogenase (118-273) U/L Troponin I High Sens 45.8 H D (<3.5-35.0) ng/L C-Reactive Protein (< or = 0.50) mg/dL B-Natriuretic Peptide (<100) pg/mL Total Protein (6.5-8.0) g/dL Albumin (3.5-5.0) g/dL Procalcitonin ng/mL Coronavirus (PCR) (Negative) Influenza Type A (PCR) (Negative) Influenza Type B (PCR) (Negative) RSV RNA Qual (PCR) (Negative) Blood Type Antibody Screen Crossmatch 05/03/20 05/03/20 05/03/20 Range/Units 16:09 16:09 16:12 WBC (4.8-10.8) X10*3/uL RBC (4.60-5.80) X10*6/uL Hgb (14.0-18.0) g/dl Hct (42-52) % MCV (80-98) fL MCH (27.0-33.0) pg MCHC (31.0-36.0) g/dl RDW (11.0-16.0) % Plt Count (160-400) X10*3/uL MPV (9.4-12.4) fL Immature Gran % (Auto) (0.0-0.4) % Neut % (Auto) (45-73) % Lymph % (Auto) (20-40) % [place] % (Auto) (2-11) % Eos % (Auto) (0-4) % Baso % (Auto) (0-2) % Lymph # (Auto) (1.2-4.9) X10*3/uL [place] # (Auto) (0.1-1.2) X10*3/uL Eos # (Auto) (0.0-0.4) X10*3/uL Baso # (Auto) (0.0-0.2) X10*3/uL Abs Immat Gran (auto) (0.00-0.03) X10*3/uL Absolute Neuts (auto) (2.0-8.3) X10*3/uL Absolute Nucleated RBC (0.0-0.012) X10*3/uL Nucleated RBC % (auto) (0.0-0.2) /100WBC Smear Tech's Comments PT (10.8-13.0) SEC INR (0.9-1.1) APTT (24.1-38.0) SEC D-Dimer NG/ML VBG pH 7.23 L (7.32-7.43) VBG pCO2 71 mmHg VBG pO2 41 mmHg VBG HCO3 30 mmol/L VBG O2 Saturation 53.0 % VBG Base Excess 2.0 mmol/L Sodium (135-145) mmol/L Potassium (3.3-5.1) mmol/l Chloride (96-108) mmol/L Carbon Dioxide (22-29) mmol/L Anion Gap (12-20) BUN (9-16) mg/dL Creatinine (0.5-1.4) mg/dL Estim Creat Clear Calc Estimated GFR Random Glucose (60-115) mg/dL Lactic Acid (0.5-2.0) mmol/L Calcium (8.4-10.2) mg/dL Ferritin (20-250) ng/mL Total Bilirubin (0.0-1.0) mg/dL AST (5-37) U/L ALT (0-40) U/L Alkaline Phosphatase (39-117) U/L Lactate Dehydrogenase (118-273) U/L Troponin I High Sens (<3.5-35.0) ng/L C-Reactive Protein (< or = 0.50) mg/dL B-Natriuretic Peptide 218 H (<100) pg/mL Total Protein (6.5-8.0) g/dL Albumin (3.5-5.0) g/dL Procalcitonin 1.26 ng/mL Coronavirus (PCR) (Negative) Influenza Type A (PCR) (Negative) Influenza Type B (PCR) (Negative) RSV RNA Qual (PCR) (Negative) Blood Type Antibody Screen Crossmatch 05/03/20 05/03/20 Range/Units 16:14 17:22 WBC (4.8-10.8) X10*3/uL RBC (4.60-5.80) X10*6/uL Hgb (14.0-18.0) g/dl Hct (42-52) % MCV (80-98) fL MCH (27.0-33.0) pg MCHC (31.0-36.0) g/dl RDW (11.0-16.0) % Plt Count (160-400) X10*3/uL MPV (9.4-12.4) fL Immature Gran % (Auto) (0.0-0.4) % Neut % (Auto) (45-73) % Lymph % (Auto) (20-40) % [place] % (Auto) (2-11) % Eos % (Auto) (0-4) % Baso % (Auto) (0-2) % Lymph # (Auto) (1.2-4.9) X10*3/uL [place] # (Auto) (0.1-1.2) X10*3/uL Eos # (Auto) (0.0-0.4) X10*3/uL Baso # (Auto) (0.0-0.2) X10*3/uL Abs Immat Gran (auto) (0.00-0.03) X10*3/uL Absolute Neuts (auto) (2.0-8.3) X10*3/uL Absolute Nucleated RBC (0.0-0.012) X10*3/uL Nucleated RBC % (auto) (0.0-0.2) /100WBC Smear Tech's Comments PT (10.8-13.0) SEC INR (0.9-1.1) APTT (24.1-38.0) SEC D-Dimer NG/ML VBG pH (7.32-7.43) VBG pCO2 mmHg VBG pO2 mmHg VBG HCO3 mmol/L VBG O2 Saturation % VBG Base Excess mmol/L Sodium (135-145) mmol/L Potassium (3.3-5.1) mmol/l Chloride (96-108) mmol/L Carbon Dioxide (22-29) mmol/L Anion Gap (12-20) BUN (9-16) mg/dL Creatinine (0.5-1.4) mg/dL Estim Creat Clear Calc Estimated GFR Random Glucose (60-115) mg/dL Lactic Acid (0.5-2.0) mmol/L Calcium (8.4-10.2) mg/dL Ferritin (20-250) ng/mL Total Bilirubin (0.0-1.0) mg/dL AST (5-37) U/L ALT (0-40) U/L Alkaline Phosphatase (39-117) U/L Lactate Dehydrogenase (118-273) U/L Troponin I High Sens (<3.5-35.0) ng/L C-Reactive Protein (< or = 0.50) mg/dL B-Natriuretic Peptide (<100) pg/mL Total Protein (6.5-8.0) g/dL Albumin (3.5-5.0) g/dL Procalcitonin ng/mL Coronavirus (PCR) POSITIVE A (Negative) Influenza Type A (PCR) NEGATIVE (Negative) Influenza Type B (PCR) NEGATIVE (Negative) RSV RNA Qual (PCR) NEGATIVE (Negative) Blood Type A Negative Antibody Screen NEGATIVE Crossmatch See Detail <Moise Garg NP - Last Filed: 05/03/20 21:21> Lab Results 05/03/20 05/03/20 05/03/20 Range/Units 16:09 16:09 16:09 WBC 4.4 L (4.8-10.8) X10*3/uL RBC 2.62 L D (4.60-5.80) X10*6/uL Hgb 7.9 L D (14.0-18.0) g/dl Hct 25.7 L D (42-52) % MCV 98.1 H (80-98) fL MCH 30.2 (27.0-33.0) pg MCHC 30.7 L (31.0-36.0) g/dl RDW 17.4 H (11.0-16.0) % Plt Count 107 L (160-400) X10*3/uL MPV 11.0 (9.4-12.4) fL Immature Gran % (Auto) 1.8 H (0.0-0.4) % Neut % (Auto) 89.6 H (45-73) % Lymph % (Auto) 4.8 L (20-40) % [place] % (Auto) 3.4 (2-11) % Eos % (Auto) 0.2 (0-4) % Baso % (Auto) 0.2 (0-2) % Lymph # (Auto) 0.2 L (1.2-4.9) X10*3/uL [place] # (Auto) 0.2 (0.1-1.2) X10*3/uL Eos # (Auto) 0.0 (0.0-0.4) X10*3/uL Baso # (Auto) 0.0 (0.0-0.2) X10*3/uL Abs Immat Gran (auto) 0.08 H (0.00-0.03) X10*3/uL Absolute Neuts (auto) 3.9 (2.0-8.3) X10*3/uL Absolute Nucleated RBC 0.130 H (0.0-0.012) X10*3/uL Nucleated RBC % (auto) 3.0 H (0.0-0.2) /100WBC Smear Tech's Comments VERIFIED PT 18.8 H (10.8-13.0) SEC INR 1.6 H (0.9-1.1) APTT 27.8 (24.1-38.0) SEC D-Dimer 1964 NG/ML VBG pH (7.32-7.43) VBG pCO2 mmHg VBG pO2 mmHg VBG HCO3 mmol/L VBG O2 Saturation % VBG Base Excess mmol/L Sodium 135 (135-145) mmol/L Potassium 5.5 H D (3.3-5.1) mmol/l Chloride 96 (96-108) mmol/L Carbon Dioxide 24 (22-29) mmol/L Anion Gap 21 H (12-20) BUN 94 H* D (9-16) mg/dL Creatinine 2.74 H (0.5-1.4) mg/dL Estim Creat Clear Calc 52.2 Estimated GFR 25 Random Glucose 280 H (60-115) mg/dL Lactic Acid (0.5-2.0) mmol/L Calcium 6.5 L D (8.4-10.2) mg/dL Ferritin (20-250) ng/mL Total Bilirubin 1.0 (0.0-1.0) mg/dL AST 342 H (5-37) U/L ALT 292 H (0-40) U/L Alkaline Phosphatase 90 D (39-117) U/L Lactate Dehydrogenase 809 H (118-273) U/L Troponin I High Sens (<3.5-35.0) ng/L C-Reactive Protein 26.11 H (< or = 0.50) mg/dL B-Natriuretic Peptide (<100) pg/mL Total Protein 6.7 (6.5-8.0) g/dL Albumin 3.3 L (3.5-5.0) g/dL Procalcitonin ng/mL Coronavirus (PCR) (Negative) Influenza Type A (PCR) (Negative) Influenza Type B (PCR) (Negative) RSV RNA Qual (PCR) (Negative) Blood Type Antibody Screen Crossmatch 05/03/20 05/03/20 05/03/20 Range/Units 16:09 16:09 16:09 WBC (4.8-10.8) X10*3/uL RBC (4.60-5.80) X10*6/uL Hgb (14.0-18.0) g/dl Hct (42-52) % MCV (80-98) fL MCH (27.0-33.0) pg MCHC (31.0-36.0) g/dl RDW (11.0-16.0) % Plt Count (160-400) X10*3/uL MPV (9.4-12.4) fL Immature Gran % (Auto) (0.0-0.4) % Neut % (Auto) (45-73) % Lymph % (Auto) (20-40) % [place] % (Auto) (2-11) % Eos % (Auto) (0-4) % Baso % (Auto) (0-2) % Lymph # (Auto) (1.2-4.9) X10*3/uL [place] # (Auto) (0.1-1.2) X10*3/uL Eos # (Auto) (0.0-0.4) X10*3/uL Baso # (Auto) (0.0-0.2) X10*3/uL Abs Immat Gran (auto) (0.00-0.03) X10*3/uL Absolute Neuts (auto) (2.0-8.3) X10*3/uL Absolute Nucleated RBC (0.0-0.012) X10*3/uL Nucleated RBC % (auto) (0.0-0.2) /100WBC Smear Tech's Comments PT (10.8-13.0) SEC INR (0.9-1.1) APTT (24.1-38.0) SEC D-Dimer NG/ML VBG pH (7.32-7.43) VBG pCO2 mmHg VBG pO2 mmHg VBG HCO3 mmol/L VBG O2 Saturation % VBG Base Excess mmol/L Sodium (135-145) mmol/L Potassium (3.3-5.1) mmol/l Chloride (96-108) mmol/L Carbon Dioxide (22-29) mmol/L Anion Gap (12-20) BUN (9-16) mg/dL Creatinine (0.5-1.4) mg/dL Estim Creat Clear Calc Estimated GFR Random Glucose (60-115) mg/dL Lactic Acid 1.9 (0.5-2.0) mmol/L Calcium (8.4-10.2) mg/dL Ferritin 2874 H (20-250) ng/mL Total Bilirubin (0.0-1.0) mg/dL AST (5-37) U/L ALT (0-40) U/L Alkaline Phosphatase (39-117) U/L Lactate Dehydrogenase (118-273) U/L Troponin I High Sens 45.8 H D (<3.5-35.0) ng/L C-Reactive Protein (< or = 0.50) mg/dL B-Natriuretic Peptide (<100) pg/mL Total Protein (6.5-8.0) g/dL Albumin (3.5-5.0) g/dL Procalcitonin ng/mL Coronavirus (PCR) (Negative) Influenza Type A (PCR) (Negative) Influenza Type B (PCR) (Negative) RSV RNA Qual (PCR) (Negative) Blood Type Antibody Screen Crossmatch 05/03/20 05/03/20 05/03/20 Range/Units 16:09 16:09 16:12 WBC (4.8-10.8) X10*3/uL RBC (4.60-5.80) X10*6/uL Hgb (14.0-18.0) g/dl Hct (42-52) % MCV (80-98) fL MCH (27.0-33.0) pg MCHC (31.0-36.0) g/dl RDW (11.0-16.0) % Plt Count (160-400) X10*3/uL MPV (9.4-12.4) fL Immature Gran % (Auto) (0.0-0.4) % Neut % (Auto) (45-73) % Lymph % (Auto) (20-40) % [place] % (Auto) (2-11) % Eos % (Auto) (0-4) % Baso % (Auto) (0-2) % Lymph # (Auto) (1.2-4.9) X10*3/uL [place] # (Auto) (0.1-1.2) X10*3/uL Eos # (Auto) (0.0-0.4) X10*3/uL Baso # (Auto) (0.0-0.2) X10*3/uL Abs Immat Gran (auto) (0.00-0.03) X10*3/uL Absolute Neuts (auto) (2.0-8.3) X10*3/uL Absolute Nucleated RBC (0.0-0.012) X10*3/uL Nucleated RBC % (auto) (0.0-0.2) /100WBC Smear Tech's Comments PT (10.8-13.0) SEC INR (0.9-1.1) APTT (24.1-38.0) SEC D-Dimer NG/ML VBG pH 7.23 L (7.32-7.43) VBG pCO2 71 mmHg VBG pO2 41 mmHg VBG HCO3 30 mmol/L VBG O2 Saturation 53.0 % VBG Base Excess 2.0 mmol/L Sodium (135-145) mmol/L Potassium (3.3-5.1) mmol/l Chloride (96-108) mmol/L Carbon Dioxide (22-29) mmol/L Anion Gap (12-20) BUN (9-16) mg/dL Creatinine (0.5-1.4) mg/dL Estim Creat Clear Calc Estimated GFR Random Glucose (60-115) mg/dL Lactic Acid (0.5-2.0) mmol/L Calcium (8.4-10.2) mg/dL Ferritin (20-250) ng/mL Total Bilirubin (0.0-1.0) mg/dL AST (5-37) U/L ALT (0-40) U/L Alkaline Phosphatase (39-117) U/L Lactate Dehydrogenase (118-273) U/L Troponin I High Sens (<3.5-35.0) ng/L C-Reactive Protein (< or = 0.50) mg/dL B-Natriuretic Peptide 218 H (<100) pg/mL Total Protein (6.5-8.0) g/dL Albumin (3.5-5.0) g/dL Procalcitonin 1.26 ng/mL Coronavirus (PCR) (Negative) Influenza Type A (PCR) (Negative) Influenza Type B (PCR) (Negative) RSV RNA Qual (PCR) (Negative) Blood Type Antibody Screen Crossmatch 05/03/20 05/03/20 Range/Units 16:14 17:22 WBC (4.8-10.8) X10*3/uL RBC (4.60-5.80) X10*6/uL Hgb (14.0-18.0) g/dl Hct (42-52) % MCV (80-98) fL MCH (27.0-33.0) pg MCHC (31.0-36.0) g/dl RDW (11.0-16.0) % Plt Count (160-400) X10*3/uL MPV (9.4-12.4) fL Immature Gran % (Auto) (0.0-0.4) % Neut % (Auto) (45-73) % Lymph % (Auto) (20-40) % [place] % (Auto) (2-11) % Eos % (Auto) (0-4) % Baso % (Auto) (0-2) % Lymph # (Auto) (1.2-4.9) X10*3/uL [place] # (Auto) (0.1-1.2) X10*3/uL Eos # (Auto) (0.0-0.4) X10*3/uL Baso # (Auto) (0.0-0.2) X10*3/uL Abs Immat Gran (auto) (0.00-0.03) X10*3/uL Absolute Neuts (auto) (2.0-8.3) X10*3/uL Absolute Nucleated RBC (0.0-0.012) X10*3/uL Nucleated RBC % (auto) (0.0-0.2) /100WBC Smear Tech's Comments PT (10.8-13.0) SEC INR (0.9-1.1) APTT (24.1-38.0) SEC D-Dimer NG/ML VBG pH (7.32-7.43) VBG pCO2 mmHg VBG pO2 mmHg VBG HCO3 mmol/L VBG O2 Saturation % VBG Base Excess mmol/L Sodium (135-145) mmol/L Potassium (3.3-5.1) mmol/l Chloride (96-108) mmol/L Carbon Dioxide (22-29) mmol/L Anion Gap (12-20) BUN (9-16) mg/dL Creatinine (0.5-1.4) mg/dL Estim Creat Clear Calc Estimated GFR Random Glucose (60-115) mg/dL Lactic Acid (0.5-2.0) mmol/L Calcium (8.4-10.2) mg/dL Ferritin (20-250) ng/mL Total Bilirubin (0.0-1.0) mg/dL AST (5-37) U/L ALT (0-40) U/L Alkaline Phosphatase (39-117) U/L Lactate Dehydrogenase (118-273) U/L Troponin I High Sens (<3.5-35.0) ng/L C-Reactive Protein (< or = 0.50) mg/dL B-Natriuretic Peptide (<100) pg/mL Total Protein (6.5-8.0) g/dL Albumin (3.5-5.0) g/dL Procalcitonin ng/mL Coronavirus (PCR) POSITIVE A (Negative) Influenza Type A (PCR) NEGATIVE (Negative) Influenza Type B (PCR) NEGATIVE (Negative) RSV RNA Qual (PCR) NEGATIVE (Negative) Blood Type A Negative Antibody Screen NEGATIVE Crossmatch See Detail <Calderon Ruelas MD - Last Filed: 05/09/20 10:29> ECG Data Interpretation: Normal sinus rhythm Rate 89 No ectopy No acute ST segment changes No significant change from previous <Moise Garg NP - Last Filed: 05/03/20 21:21> Critical Care Time Critical Care Time Critical Care Time: Yes <Mosie Garg NP - Last Filed: 05/03/20 21:21> Total Critical Care Time: 120 <Moise Garg NP - Last Filed: 05/03/20 21:21> Attestation: Multiple visits to bedside, in respiratory distress placed on CPAP subsequently requiring intubation and admission to ICU. <Moise Garg NP - Last Filed: 05/03/20 21:21> Discharge Plan Discharge Clinical Impression: JOSE (acute kidney injury), COVID-19, Anemia, Respiratory failure with hypoxia, Respiratory failure requiring intubation <Moise Garg NP - Last Filed: 05/03/20 21:21> Patient Disposition: Admitted As Inpatient <Moise Garg NP - Last Filed: 05/03/20 21:21> Interventions: Admission Worksheet (ED) Last Done: 05/03/20 23:54 <Moise Garg NP - Last Filed: 05/03/20 21:21> Discharge Date/Time: 05/03/20 22:15 <Moise Garg NP - Last Filed: 05/03/20 21:21>
[2020-05-03 16:24] LABS: Basophils Percent Auto 0.2 % (0-2); Eosinophils Percent Auto 0.2 % (0-4); Hematocrit 25.7 % (42-52); Hemoglobin 7.9 g/dl (14.0-18.0); Imm Gran Abs Auto 0.08 X10*3/uL (0.00-0.03); Imm Gran Pct Auto 1.8 % (0.0-0.4); Lymphocytes Absolute Auto 0.2 X10*3/uL (1.2-4.9); Lymphocytes Percent Auto 4.8 % (20-40); MANUAL DIFF FLAG SCAN; Mean Corpuscular HGB Conc 30.7 g/dl (31.0-36.0); Mean Corpuscular Hemoglobin 30.2 pg (27.0-33.0); Mean Corpuscular Volume 98.1 fL (80-98); Monocytes Absolute Auto 0.2 X10*3/uL (0.1-1.2); Monocytes Percent Auto 3.4 % (2-11); Neutrophils Absolute Auto 3.9 X10*3/uL (2.0-8.3); Neutrophils Percent Auto 89.6 % (45-73); Platelet Count 107 X10*3/uL (160-400); Red Blood Count 2.62 X10*6/uL (4.60-5.80); Red Cell Distribution Width 17.4 % (11.0-16.0); SCAN SMEAR FLAG 1; White Blood Count 4.4 X10*3/uL (4.8-10.8)
[2020-05-03 16:26] LABS: PCO2 VBG 71 mmHg; PO2 VBG 41 mmHg; pH VBG 7.23 (7.32-7.43)
[2020-05-03 16:27] LABS: HCO3 VBG 30 mmol/L
[2020-05-03 16:41] LABS: INTERNATIONAL NORM RATIO 1.6 (0.9-1.1); Prothrombin Time 18.8 SEC (10.8-13.0)
[2020-05-03 16:44] LABS: Partial Thromboplastin Time 27.8 SEC (24.1-38.0)
[2020-05-03 16:45] LABS: SLIDE REVIEW VERIFIED
[2020-05-03 16:50] LABS: Lactic Acid 1.9 mmol/L (0.5-2.0)
[2020-05-03 16:55] LABS: B Type Natriuretic Peptide 218 pg/mL (<100)
[2020-05-03 16:59] LABS: Troponin-I High Sensitivity 45.8 ng/L (<3.5-35.0)
[2020-05-03] MEDS: dexAMETHasone sod phosphate 4 MG/ML VIAL 6 MG IVPUSH (16:59)
--- NOTE | 2020-05-03 16:59 | PC.NURSE ---
patient wakes to verbal stimulus, speaking in short sentences, rt at bedside and set up cpap, ekg performed, iv inserted, labs drawn pt nsr on research phlebotomist, vitals currently stable, cxr performed, will continue to monitor.
[2020-05-03 17:01] LABS: Alanine Aminotransferase 292 U/L (0-40); Albumin Level 3.3 g/dL (3.5-5.0); Alkaline Phosphatase 90 U/L (39-117); Anion Gap 21 (12-20); Aspartate Amino Transferase 342 U/L (5-37); Blood Urea Nitrogen 94 mg/dL (9-16); C Reactive Protein 26.11 mg/dL (< or = 0.50); Calcium 6.5 mg/dL (8.4-10.2); Carbon Dioxide 24 mmol/L (22-29); Chloride 96 mmol/L (96-108); Creatinine Clr Calc Pharmacy 52.2; Estimated Glomerular Filt Rate 25; Glucose Random 280 mg/dL (60-115); Lactate Dehydrogenase 809 U/L (118-273); Potassium 5.5 mmol/l (3.3-5.1); Sodium 135 mmol/L (135-145); Total Protein 6.7 g/dL (6.5-8.0)
[2020-05-03 17:03] LABS: D Dimer 1964 NG/ML
[2020-05-03 17:04] LABS: Influenza A PCR NEGATIVE (Negative); Influenza B PCR NEGATIVE (Negative); Resp Syncy Virus RNA Qual PCR NEGATIVE (Negative); SARS COV2 PCR INHOUSE POSITIVE (Negative)
[2020-05-03 17:11] LABS: Procalcitonin 1.26 ng/mL
--- NOTE | 2020-05-03 17:23 | PC.NURSE ---
rectal exam performed by prvider
--- NOTE | 2020-05-03 17:23 | PC.NURSE ---
rt in room to change patient over bipap
[2020-05-03 18:02] LABS: Ferritin 2874 ng/mL (20-250)
[2020-05-03 18:08] LABS: OBS Int Ctl Valid YES; OBS1 NEG (NEG)
--- NOTE | 2020-05-03 18:32 | XR_ITS ---
EXAMINATION: XR CHEST CLINICAL INFORMATION: Post intubation COMPARISON: Chest x-ray 05/03/2020, 4:40 PM TECHNIQUE: Frontal portable view of the chest was obtained. 1845 hours FINDINGS: Tubes and lines: 1. Endotracheal tube 4 cm above the valerie. Extensive bilateral airspace opacities unchanged since prior chest x-ray. No pneumothorax. Heart size is enlarged. No large pleural effusion. XR/XR chest 1V IMPRESSION: 1. Endotracheal tube in good position 4 cm above valerie. 2. Persistent extensive bilateral airspace opacities.
--- NOTE | 2020-05-03 19:26 | XR_ITS ---
EXAMINATION: XR CHEST CLINICAL INFORMATION: Line placement COMPARISON: 04/08/2020 TECHNIQUE: Frontal view of the chest was obtained. FINDINGS: There is an ET tube in place. Overlies the trachea. Approximately 3.8 cm from the valerie. An arterial venous line is not visualized here. There is flocculent bilateral opacities which would be consistent with infiltrate. Edema cannot be excluded. XR/XR chest 1V IMPRESSION: A central line is not visualized. There is an ET tube which projects over the trachea approximately 3.8 cm from the valerie. Significant diffuse flocculent bilateral lung opacities consistent with infiltrate and/or edema
--- NOTE | 2020-05-03 19:51 | W.PM.CCHP ---
Procedures Intubation Intubation Comments: Extensive bilateral COVID-19 pneumonitis/ARDS with acute hypoxic and hypercarbic respiratory failure with delirium Consent for Procedure: Emergent-no informed consent obtained Time out performed: Yes Sedative: propofol Mg given: 100 Paralytic: rocuronium Laryngoscope: fiber optic video scope ET tube size: 8 ET tube uncuffed: Yes Tube secured depth (cm): 24 Tube secured location: lips Tube placement confirmation: visualized tube passing through cords, equal breath sounds bilaterally and confirmation by capnometry Patient tolerated procedure: well and no complications Intubation complications: none
[2020-05-03] MEDS: fentaNYL citrate/NS 1,000 MCG/100 ML PLAST..BAG 2.5 MCG IVCONT (21:00)
--- NOTE | 2020-05-03 21:26 | XR_ITS ---
EXAMINATION: XR CHEST CLINICAL INFORMATION: Line placement COMPARISON: Film same day earlier TECHNIQUE: Frontal view of the chest was obtained. FINDINGS: There is a line overlying the right side of the neck terminating overlying the level of the superior vena cava confluence with the subclavian ET tube approximately 4.7 cm above the valerie. There is a likely NG tube coursing across the diaphragm. The distal tip is not visualized. Continued flocculent bilateral opacities XR/XR chest 1V IMPRESSION: Line on the right terminating at the level of the superior vena cava and right subclavian vein junction. NG tube partially visualized coursing into the stomach. ET tube 4.7 cm above the valerie. Continued significant flocculent bilateral opacities
--- NOTE | 2020-05-03 22:43 | PC.NURSE ---
1819- 60 ivp bolus propofol given- per verbal order by provider 1820 90 ivp rocuronium given- per verbal order by provider 182- 40 ivp bolus propofol given- per verbal order by provider RT bagging patient- O2 sat 56% 1823- attempting intubation 1824- RT bagging patient- o2 sat 71% 1825- attempting intubation 1826 pt intubated 24@ lip, 8.0 tube, vent 30/5, 100% O2, 8 peep- pulse 102, 98%, bp 92/27 1830- pulse 103, bp 128/50 1832- 100 ivp bolus propofol given- per verbal order by provider 184- p 104, bp 153/69, 94% 1855- 50ml propofol drip started 25 mcg/kg/min, per dr saavedra verbal order start with pt wt at 150kg vs pt wt of 184kg. 0- propofol titrated to 35 1909- 4ml midazolam given- per verbal order by provider 1909- attempting central line insertion 1914-patient waking- propofol titrated to 45 0 pt waking, 4ml midozolam given- per verbal order by provider 1923 central line completed 7f- triple lumen 1929- xray performed to confirm central line 1934- new 50ml bottle propofol hung 1935 pt waking, p- 83, 94%-vented, bp 82/21-provider aware 1939- propofol decreased to 35, bp 71/20, 85p- nsr, 97%-vented 1945 bp 80/23, pulse 83 1949- removing misplaced central line/ reinserting new central line 1953- 250 mcg ivp bolus phenylephrine given per verbal order by provider 1955- p-91-nsr, 100%-vented, bp 113/40 2013- obtained bag of fentanyl- hung fentanyl at 25/hr- per verbal order by provider, titrated propofol down to 30 2019- 125mcg phenylephrine given per verbal order by provider 2029- p- 91-nsr, 97% vented, bp 112/31 2044- different provider attempting new central line 2034- increased propofol to 45, pulse 92, 98%-vented, bp100/33 2048- new bottle 50 ml propofol hung 2049-bp 90/30, p- 89, 98%-vented, 125mcg phenylephrine given per verbal order by provider 2051- p-89, bp 100/34, 98%-vented 2099- icu called with report 2119- central line placed 2134- cxr to confirm central line 2154 crowder cath placed, initilal output 950ml- pulse 86- nsr, bp 120/57, 98% vented 2203- new bottle 50 ml propofol hung 2209- RT called to transfer patient to ICU 2214- patient placed on zoll and transferred with tech/rn/rt to icu
[2020-05-03] MEDS: propofoL 1,000 MG/100 ML VIAL 33.12 MG IVCONT (23:25)
[2020-05-03 23:37] LABS: Base Excess VBG -3.6 mmol/L; HCO3 VBG 23 mmol/L; PCO2 VBG 57 mmHg; PO2 VBG 173 mmHg; pH VBG 7.22 (7.32-7.43)
--- NOTE | 2020-05-03 23:47 | PM.CCHP ---
History of Present Illness Date of Service: 05/03/20 Chief Complaint: SOB Patient is a 49-year-old male with morbid obesity, DM, HTN, right heart failure, chronic lymphedema, chronic pain on chronic opiods, hx of kidney stones and s/p right BKA who presented to the emergency department earlier today via EMS complaining of shortness of breath. According to ED records EMS found him at home with SpO2 of 50% on room air, they placed him on a non-rebreather and his SpO2 improved to 95%. This patient was recently in the ICU at this hospital last month for acute hypoxemic and hypercarbic respiratory failure secondary to morbid obesity, he also had an JOSE as well as right heart failure secondary to cor pulmonale. Today, while in the ED, he reports he was diagnosed with COVID-19 on May 01 and has had increasing shortness of breath which is why he called EMS. According to the ED records, the patient was a very poor historian and could not report much more than this information. In the ED, his labs were significantly deranged; WBC is 4.4, H&H is 7.9 and 25.7, d dimer 1964, VBG 7.23/71/41/30/53 base excess 2.0 on unknown O2. K 5.5, gap 21, BUN 94, Cr 2.74, Calcium 6.5, ferritin 2874, AST/ALT 342/292, LDH 809, trop 45.8, CRP 26.11, BNP 218 procalcitonin 1.26, lactic acid 1.9, COVID-19+, flu A&B -, RSV - Based on these labs and the patient's condition, the patient was intubated and a central line was placed. Patient will be transferred to the ICU for care Review of Systems Review of Systems: Yes all other systems are reviewed and are negative [facility] Past Medical History Medical History Chronic pain Diabetic neuropathy Hypertension Morbid obesity Obesity hypoventilation syndrome Opioid use disorder Phantom limb pain Family History Family History Father No problems noted. Mother No problems noted. Surgical History Surgical History History of right lower limb amputation Hx of cholecystectomy Social History Social History (Updated 05/04/20 @ 00:04 by JEFFREY Avila) Household Members: Unknown / Unable to assess Housing: Unknown / Unable to assess Alcohol intake: never Smoking Status: Former smoker Tobacco Type: Cigarette Packs Per Day: 3 Cigarettes Per Day: 60.0 Years Smoked: 25 Substance Use Type: Opiates service: No Meds Allergies Allergy/AdvReac Type Severity Reaction Status Date / Time penicillin V Allergy Unknown hives Verified 05/02/20 12:48 Home Medications Medication Instructions Recorded Confirmed Type acetaminophen 500 mg tablet 1,000 mg PO Q8-10H PRN 01/18/20 05/03/20 History aspirin 81 mg tablet,delayed 81 mg PO DAILY 01/18/20 05/03/20 History release calcium carbonate 500 mg calcium 500 mg PO DAILY 01/18/20 05/03/20 History (1,250 mg) tablet clonidine HCl 0.1 mg tablet 0.1 mg PO BID 01/18/20 05/03/20 History cyclobenzaprine 5 mg tablet 5 mg PO TID PRN 01/18/20 05/03/20 History ferrous sulfate 325 mg (65 mg 325 mg PO DAILY 01/18/20 05/03/20 History iron) tablet fluticasone propionate 50 1 spray INTRANASAL BID 01/18/20 05/03/20 History mcg/actuation nasal spray,suspension melatonin 3 mg capsule 6 mg PO BEDTIME PRN 01/18/20 05/03/20 History omeprazole 20 mg capsule,delayed 20 mg PO BID 01/18/20 05/03/20 History release pravastatin 10 mg tablet 10 mg PO BEDTIME 01/18/20 05/03/20 History topiramate 100 mg tablet 100 mg PO BEDTIME 01/18/20 05/03/20 History trazodone 50 mg tablet 50 mg PO BEDTIME PRN 01/18/20 05/03/20 History facial-body wipes #384 ea 02/20/20 05/02/20 History levothyroxine 37.5 mcg PO DAILY 04/06/20 05/03/20 History loperamide 2 mg PO Q4H PRN 05/03/20 05/03/20 History Physical Exam Vital Signs: Vital Signs: Last Vital Signs Temp 98.5 F 05/03/20 16:00 Pulse 91 05/03/20 16:00 Resp 28 H 05/03/20 17:26 BP 134/60 05/03/20 16:00 Pulse Ox 97 05/03/20 16:00 Body Mass Index 63.8 Const: General: other (intubated and sedated) Nutritional Appearance: obese morbidly obese HENMT: Head: Yes normal to inspection, Yes normocephalic and Yes atraumatic Eyes: General: appearance normal, both eyes and all related structures Neck: Neck: Yes normal visual inspection Resp: Auscultation: diminished lung sounds diffuse Cardio: Rate: regular rate Rhythm: regular rhythm Heart sounds: normal S1 and S2 GI: Inspection: Yes Abdominal panniculus present and Yes obesity Palpation (GI): Soft to palpation and nontender : Other: fungal rash in bilateral groin Skin: Other: removed tick off pt's mid back Extrem: Other: right BKA Results Labs CBC and Chem 7: 05/03/20 16:09 05/03/20 16:09 Labs: Laboratory Results - last 24 hr 05/03/20 05/03/20 05/03/20 16:09 16:09 16:09 MCV 98.1 H MCH 30.2 MCHC 30.7 L RDW 17.4 H Plt Count 107 L MPV 11.0 Immature Gran % (Auto) 1.8 H Neut % (Auto) 89.6 H Lymph % (Auto) 4.8 L [place] % (Auto) 3.4 Eos % (Auto) 0.2 Baso % (Auto) 0.2 Lymph # (Auto) 0.2 L [place] # (Auto) 0.2 Eos # (Auto) 0.0 Baso # (Auto) 0.0 Abs Immat Gran (auto) 0.08 H Absolute Neuts (auto) 3.9 Absolute Nucleated RBC 0.130 H Nucleated RBC % (auto) 3.0 H Smear Tech's Comments VERIFIED PT 18.8 H INR 1.6 H APTT 27.8 D-Dimer 1964 VBG pH VBG pCO2 VBG pO2 VBG HCO3 VBG O2 Saturation VBG Base Excess Anion Gap 21 H Estim Creat Clear Calc 52.2 Estimated GFR 25 Random Glucose 280 H Lactic Acid Calcium 6.5 L D Ferritin Total Bilirubin 1.0 AST 342 H ALT 292 H Alkaline Phosphatase 90 D Lactate Dehydrogenase 809 H Troponin I High Sens C-Reactive Protein 26.11 H B-Natriuretic Peptide Total Protein 6.7 Albumin 3.3 L Procalcitonin Stool Occult Blood Coronavirus (PCR) Influenza Type A (PCR) Influenza Type B (PCR) RSV RNA Qual (PCR) Blood Type Antibody Screen Crossmatch 05/03/20 05/03/20 05/03/20 16:09 16:09 16:09 MCV MCH MCHC RDW Plt Count MPV Immature Gran % (Auto) Neut % (Auto) Lymph % (Auto) [place] % (Auto) Eos % (Auto) Baso % (Auto) Lymph # (Auto) [place] # (Auto) Eos # (Auto) Baso # (Auto) Abs Immat Gran (auto) Absolute Neuts (auto) Absolute Nucleated RBC Nucleated RBC % (auto) Smear Tech's Comments PT INR APTT D-Dimer VBG pH VBG pCO2 VBG pO2 VBG HCO3 VBG O2 Saturation VBG Base Excess Anion Gap Estim Creat Clear Calc Estimated GFR Random Glucose Lactic Acid 1.9 Calcium Ferritin 2874 H Total Bilirubin AST ALT Alkaline Phosphatase Lactate Dehydrogenase Troponin I High Sens 45.8 H D C-Reactive Protein B-Natriuretic Peptide Total Protein Albumin Procalcitonin Stool Occult Blood Coronavirus (PCR) Influenza Type A (PCR) Influenza Type B (PCR) RSV RNA Qual (PCR) Blood Type Antibody Screen Crossmatch 05/03/20 05/03/20 05/03/20 16:09 16:09 16:12 MCV MCH MCHC RDW Plt Count MPV Immature Gran % (Auto) Neut % (Auto) Lymph % (Auto) [place] % (Auto) Eos % (Auto) Baso % (Auto) Lymph # (Auto) [place] # (Auto) Eos # (Auto) Baso # (Auto) Abs Immat Gran (auto) Absolute Neuts (auto) Absolute Nucleated RBC Nucleated RBC % (auto) Smear Tech's Comments PT INR APTT D-Dimer VBG pH 7.23 L VBG pCO2 71 VBG pO2 41 VBG HCO3 30 VBG O2 Saturation 53.0 VBG Base Excess 2.0 Anion Gap Estim Creat Clear Calc Estimated GFR Random Glucose Lactic Acid Calcium Ferritin Total Bilirubin AST ALT Alkaline Phosphatase Lactate Dehydrogenase Troponin I High Sens C-Reactive Protein B-Natriuretic Peptide 218 H Total Protein Albumin Procalcitonin 1.26 Stool Occult Blood Coronavirus (PCR) Influenza Type A (PCR) Influenza Type B (PCR) RSV RNA Qual (PCR) Blood Type Antibody Screen Crossmatch 05/03/20 05/03/20 05/03/20 16:14 17:22 17:49 MCV MCH MCHC RDW Plt Count MPV Immature Gran % (Auto) Neut % (Auto) Lymph % (Auto) [place] % (Auto) Eos % (Auto) Baso % (Auto) Lymph # (Auto) [place] # (Auto) Eos # (Auto) Baso # (Auto) Abs Immat Gran (auto) Absolute Neuts (auto) Absolute Nucleated RBC Nucleated RBC % (auto) Smear Tech's Comments PT INR APTT D-Dimer VBG pH VBG pCO2 VBG pO2 VBG HCO3 VBG O2 Saturation VBG Base Excess Anion Gap Estim Creat Clear Calc Estimated GFR Random Glucose Lactic Acid Calcium Ferritin Total Bilirubin AST ALT Alkaline Phosphatase Lactate Dehydrogenase Troponin I High Sens C-Reactive Protein B-Natriuretic Peptide Total Protein Albumin Procalcitonin Stool Occult Blood NEG Coronavirus (PCR) POSITIVE A Influenza Type A (PCR) NEGATIVE Influenza Type B (PCR) NEGATIVE RSV RNA Qual (PCR) NEGATIVE Blood Type A Negative Antibody Screen NEGATIVE Crossmatch See Detail 05/03/20 22:58 MCV MCH MCHC RDW Plt Count MPV Immature Gran % (Auto) Neut % (Auto) Lymph % (Auto) [place] % (Auto) Eos % (Auto) Baso % (Auto) Lymph # (Auto) [place] # (Auto) Eos # (Auto) Baso # (Auto) Abs Immat Gran (auto) Absolute Neuts (auto) Absolute Nucleated RBC Nucleated RBC % (auto) Smear Tech's Comments PT INR APTT D-Dimer VBG pH 7.22 L VBG pCO2 57 VBG pO2 173 VBG HCO3 23 VBG O2 Saturation 97.0 VBG Base Excess -3.6 Anion Gap Estim Creat Clear Calc Estimated GFR Random Glucose Lactic Acid Calcium Ferritin Total Bilirubin AST ALT Alkaline Phosphatase Lactate Dehydrogenase Troponin I High Sens C-Reactive Protein B-Natriuretic Peptide Total Protein Albumin Procalcitonin Stool Occult Blood Coronavirus (PCR) Influenza Type A (PCR) Influenza Type B (PCR) RSV RNA Qual (PCR) Blood Type Antibody Screen Crossmatch Imaging Radiologist's Impressions: Impressions Chest X-Ray 05/03/20 15:53 IMPRESSION: Significant flocculent bilateral opacities consistent with diffuse infiltrate and/or edema Chest X-Ray 05/03/20 18:32 IMPRESSION: 1. Endotracheal tube in good position 4 cm above valerie. 2. Persistent extensive bilateral airspace opacities. Chest X-Ray 05/03/20 19:26 IMPRESSION: A central line is not visualized. There is an ET tube which projects over the trachea approximately 3.8 cm from the vaelrie. Significant diffuse flocculent bilateral lung opacities consistent with infiltrate and/or edema Chest X-Ray 05/03/20 21:26 IMPRESSION: Line on the right terminating at the level of the superior vena cava and right subclavian vein junction. NG tube partially visualized coursing into the stomach. ET tube 4.7 cm above the valerie. Continued significant flocculent bilateral opacities Assessment and Plan (1) COVID-19: Status: Acute intubated & sedated, started decadron daily x 10 days. Need ID consult for Remdesivir however pt's kidney function may rule him out as a candidate. Will order convalescent plasma. (2) Anemia: Status: Acute giving 1 unit RBC's, follow CBC (3) Respiratory failure with hypoxia: Status: Acute Intubated & sedated (4) Chronic kidney disease (CKD) stage G3b/A3, moderately decreased glomerular filtration rate (GFR) between 30-44 mL/min/1.73 square meter and albuminuria creatinine ratio greater than 300 mg/g: Problem details: Diabetic nephropathy with nephrotic range proteinuria Status: Acute (5) Obesity hypoventilation syndrome: Status: Acute intubated & sedated (6) Opioid use disorder: Status: Acute On Fentanyl drip for sedation (7) CHF (congestive heart failure): Status: Acute D/W Dr Bryson, agreed 80mg lasix and 250mg diamox, monitor CVP and BNP (8) Acute on chronic right heart failure: Status: Acute D/W Dr Bryson, agreed 80mg lasix and 250mg diamox, monitor CVP and BNP (9) JOSE (acute kidney injury): Status: Acute Avoid nephrotoxic drugs, monitor renal indices (10) Tick bite of back: Status: Acute Lyme testing, starting doxy 05/04 (11) Nephrotic syndrome: Problem details: Contributor to fluid retention; will need outpatient slow titration of JEANINE I to reduce proteinuria Status: Acute (12) Diabetes mellitus: Problem details: DM poorly controlled; remains hyperglycemic now Status: Acute on insulin drip, monitor POC and adjust accordingly
[2020-05-04] VITALS (34 sets, daily range): BP systolic 96–137; BP diastolic 45–75; PULSE 74–98; RESP 18–36; TEMP 37.9–38.5; O2SAT 91–99; BMI 63.3
[2020-05-04 00:26] LABS: Lactic Acid 0.7 mmol/L (0.5-2.0)
[2020-05-04 00:40] LABS: Glucose Urine UA NEG (NEG); Leukocyte Esterase Urine NEG (NEG); Nitrite Urine NEG (NEG); PH 5.5 (5.0-8.0); Specific Gravity - Urine >= 1.030 (1.005-1.025); Urine Blood 2+ (NEG); Urine Ketones NEG (NEG); Urine Protein 2+ MG/DL (NEG-TRACE)
[2020-05-04 00:44] LABS: Appearance Urine HAZY; Color Urine AMBER
[2020-05-04 00:54] LABS: RBC Urine 50-75 /HPF (0)
[2020-05-04 00:55] LABS: Bacteria Urine 2+ /LPF; Squamous Epithelial Cell Urine 1+ /LPF
[2020-05-04] MEDS: Doxycycline Hyclate 100 MG in 0.9 % Sodium Chloride 250 ML 166.67 MG IV ×2 (01:30→11:29)
[2020-05-04] MEDS: Furosemide 100 MG/10 ML VIAL 80 MG IVPUSH (01:31)
[2020-05-04] MEDS: acetaZOLAMIDE sodium 500 MG VIAL 250 MG IVPUSH (01:31)
[2020-05-04] MEDS: Heparin Sodium,Porcine 5,000 UNIT/ML VIAL 5000 UNIT SUBCUT ×3 (01:32→20:35)
[2020-05-04] MEDS: Insulin Regular/NS 100 UNIT/100 ML PLAST..BAG IVCONT (01:46)
[2020-05-04] MEDS: propofoL 1,000 MG/100 ML VIAL 38.64 MG IVCONT ×3 (01:53→07:06)
[2020-05-04 02:13] LABS: Glucose, Whole Blood 303 mg/dL (60-115)
[2020-05-04] MEDS: VANCOMYCIN HCL IV (02:39)
[2020-05-04] MEDS: SODIUM CHLORIDE 0.9% IV (02:39)
[2020-05-04 02:55] LABS: Glucose, Whole Blood 301 mg/dL (60-115)
[2020-05-04 03:49] LABS: Glucose, Whole Blood 326 mg/dL (60-115)
[2020-05-04 04:42] LABS: Glucose, Whole Blood 312 mg/dL (60-115)
[2020-05-04 05:53] LABS: Glucose, Whole Blood 285 mg/dL (60-115)
[2020-05-04 05:56] LABS: Hematocrit 24.8 % (42-52); Hemoglobin 7.5 g/dl (14.0-18.0); Imm Gran Abs Auto 0.07 X10*3/uL (0.00-0.03); Imm Gran Pct Auto 1.3 % (0.0-0.4); Lymphocytes Absolute Auto 0.1 X10*3/uL (1.2-4.9); Lymphocytes Percent Auto 2.7 % (20-40); MANUAL DIFF FLAG SCAN; Mean Corpuscular HGB Conc 30.2 g/dl (31.0-36.0); Mean Corpuscular Hemoglobin 29.8 pg (27.0-33.0); Mean Corpuscular Volume 98.4 fL (80-98); Mean Platelet Volume 9.8 fL (9.4-12.4); Monocytes Absolute Auto 0.2 X10*3/uL (0.1-1.2); Monocytes Percent Auto 3.4 % (2-11); Neutrophils Absolute Auto 4.9 X10*3/uL (2.0-8.3); Neutrophils Percent Auto 92.6 % (45-73); Platelet Count 110 X10*3/uL (160-400); Red Blood Count 2.52 X10*6/uL (4.60-5.80); Red Cell Distribution Width 17.2 % (11.0-16.0); SCAN SMEAR FLAG 1; White Blood Count 5.3 X10*3/uL (4.8-10.8)
[2020-05-04 06:07] LABS: Base Excess VBG -1.9 mmol/L; HCO3 VBG 24 mmol/L; PCO2 VBG 47 mmHg; PO2 VBG 68 mmHg; pH VBG 7.31 (7.32-7.43)
[2020-05-04 06:11] LABS: NRBC Pct Auto 3.2 /100WBC (0.0-0.2)
[2020-05-04 06:18] LABS: SLIDE REVIEW VERIFIED
[2020-05-04 06:48] LABS: Glucose, Whole Blood 285 mg/dL (60-115)
[2020-05-04 06:51] LABS: Anion Gap 19 (12-20); Blood Urea Nitrogen 98 mg/dL (9-16); Calcium 6.1 mg/dL (8.4-10.2); Carbon Dioxide 22 mmol/L (22-29); Chloride 99 mmol/L (96-108); Estimated Glomerular Filt Rate 25; Glucose Random 315 mg/dL (60-115); Potassium 5.3 mmol/l (3.3-5.1); Sodium 135 mmol/L (135-145)
[2020-05-04 07:25] LABS: Ferritin 2245 ng/mL (20-250)
--- NOTE | 2020-05-04 07:43 | PC.NURSE ---
Patient arrived from ED at approximately 2230. Patient was intubated and sedated on propofol and fentanyl. Patient was started on an insulin gtt (non-DKA), drip was titrated based on the protocol. Patient remained sedated on fentanyl and propofol during the shift. Patient received one unit PRBC's and tolerated well. Antibiotics were administered per orders. patient with T-Max 101.1.
[2020-05-04] MEDS: Chlorhexidine Gluc Oral Rinse 15 ML MOUTHWASH BUCCAL ×3 (07:54→20:34)
[2020-05-04] MEDS: dexAMETHasone sod phosphate 4 MG/ML VIAL 6 MG IVPUSH (07:55)
[2020-05-04 08:27] LABS: Glucose, Whole Blood 253 mg/dL (60-115)
--- NOTE | 2020-05-04 08:46 | P.CDIC_ITS ---
CDI Concurrent Query Service Date: 05/04/20 Documentation Clarification: Please clarify if you are treating a proba ble/suspected/likely or confirmed: Acute Blood Loss Anemia Acute Anemia of Chronic Disease, please specify underlying disease Other Anemia, please specify Provider Response: Other Other Diagnosis: He has persistent pancytopenia No proof of acute blood loss yet PLEASE DO NOT DELETE/MODIFY EXISTING CONTENT Additional information is needed in order to code to the highest accuracy and appropriate Severity of Illness (SOI). Please clarify the information noted below in your progress notes and discharge summary. Risk Factors/Clinical Indicators/Treatments 49 year old male admitted with COVID -19, Acute Anemia, Acute Respiratory Failure with Hypoxia, CKD 3, JOSE, Obesity Hypoventilation Syndrome, Acute CHF, DM with Hyperglycemia, Nephrotic Syndrome, Tick bite of back H/H on 04/16/20: 11.1/36.0 H/H on 05/03/20: 7.9/25.7 Stool OB negative Blood transfusion for dropped H/H CDS: Deepa Ramirez RN Contact Number: [phone] Please Review the information above and exercise your independent professional judgment in responding to the query. If you concur, pleas document in the PROGRESS NOTES and DISCHARGE SUMMARY. If you do not agree with the query, please document in the query above. THIS QUERY IS PART OF THE PERMANENT MEDICAL RECORD
--- NOTE | 2020-05-04 08:53 | MHC.CM.PN ---
pt is in the icu; intubated,sedated on mech. vent. pt does have a HCP and molst on file. dc plan deferred to a future time. cm to cont. to follow.
[2020-05-04 09:17] LABS: Glucose, Whole Blood 239 mg/dL (60-115)
[2020-05-04] MEDS: propofoL 1,000 MG/100 ML VIAL 44.16 MG IVCONT ×6 (10:00→23:50)
--- NOTE | 2020-05-04 10:27 | P.PNCC_ITS ---
Subjective Subjective Date of Service: 05/04/20 Interval History: 49-year-old morbidly obese insulin-dependent diabetic hypertensive with the COPD and obstructive sleep apnea chronic pulmonary hypertension who presented now with acute on chronic hypercarbic and hypoxic respiratory failure with altered mental status due to bilateral COVID-19 pneumonitis and ARDS who was failing on BiPAP Intubated in the emergency room currently remains on 100% FiO2 with significant PEEP requirement and he has chronic stage III diabetic nephropathy with the 25 cc creatinine clearance and no worsening also has significant diastolic dysfunction but preserved left ventricular systolic function and presented a month ago with some very significant fluid overload with acute on chronic diastolic CHF So currently has a CVP of 15 remains in normal sinus rhythm with preserved systolic function of left ventricle but dilated dysfunctional right ventricle with dilated inferior vena cava and of course elevated filling pressures and today is pending 1 unit of convalescent plasma transfusion will follow CVP if it elevates any further from here will probably diurese Physical Exam Vital Signs: Vital Signs: Last Vital Signs Temp 100.6 F H 05/04/20 10:00 Pulse 96 05/04/20 10:00 Resp 33 H 05/04/20 10:00 BP 108/75 05/04/20 10:00 Pulse Ox 95 05/04/20 10:00 Body Mass Index 63.3 Const: Other: Sedated and intubated but does awaken if sedation is at all reduced adeno apparently he has chronic opiate abuser He does have some degree of peripheral edema and he has a right [id number]-mony amputee Skin is intact no wounds He has got adequate bilateral carotid upstrokes and he has got coarse bilateral ventilatory sounds and a benign abdomen which is obese but nondistended no organomegaly Objective Data Labs CBC & Chem 7: 05/04/20 05:45 05/04/20 05:45 Labs: Laboratory Results - last 24 hr 05/03/20 05/03/20 05/03/20 16:09 16:09 16:09 WBC 4.4 L RBC 2.62 L D Hgb 7.9 L D Hct 25.7 L D MCV 98.1 H MCH 30.2 MCHC 30.7 L RDW 17.4 H Plt Count 107 L MPV 11.0 Immature Gran % (Auto) 1.8 H Neut % (Auto) 89.6 H Lymph % (Auto) 4.8 L [place] % (Auto) 3.4 Eos % (Auto) 0.2 Baso % (Auto) 0.2 Lymph # (Auto) 0.2 L [place] # (Auto) 0.2 Eos # (Auto) 0.0 Baso # (Auto) 0.0 Abs Immat Gran (auto) 0.08 H Absolute Neuts (auto) 3.9 Absolute Nucleated RBC 0.130 H Nucleated RBC % (auto) 3.0 H Smear Tech's Comments VERIFIED PT 18.8 H INR 1.6 H APTT 27.8 D-Dimer 1964 VBG pH VBG pCO2 VBG pO2 VBG HCO3 VBG O2 Saturation VBG Base Excess Sodium 135 Potassium 5.5 H D Chloride 96 Carbon Dioxide 24 Anion Gap 21 H BUN 94 H* D Creatinine 2.74 H Estim Creat Clear Calc 52.2 Estimated GFR 25 POC Glucose Random Glucose 280 H Lactic Acid Calcium 6.5 L D Ferritin Total Bilirubin 1.0 AST 342 H ALT 292 H Alkaline Phosphatase 90 D Lactate Dehydrogenase 809 H Troponin I High Sens C-Reactive Protein 26.11 H B-Natriuretic Peptide Total Protein 6.7 Albumin 3.3 L Procalcitonin Urine Color Urine Appearance Urine pH Ur Specific [place] Urine Protein Urine Glucose (UA) Urine Ketones Urine Blood Urine Nitrite Ur Leukocyte Esterase Urine RBC Urine WBC Ur Squamous Epith Cells Urine Bacteria Stool Occult Blood Coronavirus (PCR) Influenza Type A (PCR) Influenza Type B (PCR) RSV RNA Qual (PCR) Blood Type Antibody Screen Crossmatch 05/03/20 05/03/20 05/03/20 16:09 16:09 16:09 WBC RBC Hgb Hct MCV MCH MCHC RDW Plt Count MPV Immature Gran % (Auto) Neut % (Auto) Lymph % (Auto) [place] % (Auto) Eos % (Auto) Baso % (Auto) Lymph # (Auto) [place] # (Auto) Eos # (Auto) Baso # (Auto) Abs Immat Gran (auto) Absolute Neuts (auto) Absolute Nucleated RBC Nucleated RBC % (auto) Smear Tech's Comments PT INR APTT D-Dimer VBG pH VBG pCO2 VBG pO2 VBG HCO3 VBG O2 Saturation VBG Base Excess Sodium Potassium Chloride Carbon Dioxide Anion Gap BUN Creatinine Estim Creat Clear Calc Estimated GFR POC Glucose Random Glucose Lactic Acid 1.9 Calcium Ferritin 2874 H Total Bilirubin AST ALT Alkaline Phosphatase Lactate Dehydrogenase Troponin I High Sens 45.8 H D C-Reactive Protein B-Natriuretic Peptide Total Protein Albumin Procalcitonin Urine Color Urine Appearance Urine pH Ur Specific [place] Urine Protein Urine Glucose (UA) Urine Ketones Urine Blood Urine Nitrite Ur Leukocyte Esterase Urine RBC Urine WBC Ur Squamous Epith Cells Urine Bacteria Stool Occult Blood Coronavirus (PCR) Influenza Type A (PCR) Influenza Type B (PCR) RSV RNA Qual (PCR) Blood Type Antibody Screen Crossmatch 05/03/20 05/03/20 05/03/20 16:09 16:09 16:12 WBC RBC Hgb Hct MCV MCH MCHC RDW Plt Count MPV Immature Gran % (Auto) Neut % (Auto) Lymph % (Auto) [place] % (Auto) Eos % (Auto) Baso % (Auto) Lymph # (Auto) [place] # (Auto) Eos # (Auto) Baso # (Auto) Abs Immat Gran (auto) Absolute Neuts (auto) Absolute Nucleated RBC Nucleated RBC % (auto) Smear Tech's Comments PT INR APTT D-Dimer VBG pH 7.23 L VBG pCO2 71 VBG pO2 41 VBG HCO3 30 VBG O2 Saturation 53.0 VBG Base Excess 2.0 Sodium Potassium Chloride Carbon Dioxide Anion Gap BUN Creatinine Estim Creat Clear Calc Estimated GFR POC Glucose Random Glucose Lactic Acid Calcium Ferritin Total Bilirubin AST ALT Alkaline Phosphatase Lactate Dehydrogenase Troponin I High Sens C-Reactive Protein B-Natriuretic Peptide 218 H Total Protein Albumin Procalcitonin 1.26 Urine Color Urine Appearance Urine pH Ur Specific [place] Urine Protein Urine Glucose (UA) Urine Ketones Urine Blood Urine Nitrite Ur Leukocyte Esterase Urine RBC Urine WBC Ur Squamous Epith Cells Urine Bacteria Stool Occult Blood Coronavirus (PCR) Influenza Type A (PCR) Influenza Type B (PCR) RSV RNA Qual (PCR) Blood Type Antibody Screen Crossmatch 05/03/20 05/03/20 05/03/20 16:14 17:22 17:49 WBC RBC Hgb Hct MCV MCH MCHC RDW Plt Count MPV Immature Gran % (Auto) Neut % (Auto) Lymph % (Auto) [place] % (Auto) Eos % (Auto) Baso % (Auto) Lymph # (Auto) [place] # (Auto) Eos # (Auto) Baso # (Auto) Abs Immat Gran (auto) Absolute Neuts (auto) Absolute Nucleated RBC Nucleated RBC % (auto) Smear Tech's Comments PT INR APTT D-Dimer VBG pH VBG pCO2 VBG pO2 VBG HCO3 VBG O2 Saturation VBG Base Excess Sodium Potassium Chloride Carbon Dioxide Anion Gap BUN Creatinine Estim Creat Clear Calc Estimated GFR POC Glucose Random Glucose Lactic Acid Calcium Ferritin Total Bilirubin AST ALT Alkaline Phosphatase Lactate Dehydrogenase Troponin I High Sens C-Reactive Protein B-Natriuretic Peptide Total Protein Albumin Procalcitonin Urine Color Urine Appearance Urine pH Ur Specific [place] Urine Protein Urine Glucose (UA) Urine Ketones Urine Blood Urine Nitrite Ur Leukocyte Esterase Urine RBC Urine WBC Ur Squamous Epith Cells Urine Bacteria Stool Occult Blood NEG Coronavirus (PCR) POSITIVE A Influenza Type A (PCR) NEGATIVE Influenza Type B (PCR) NEGATIVE RSV RNA Qual (PCR) NEGATIVE Blood Type A Negative Antibody Screen NEGATIVE Crossmatch See Detail 05/03/20 05/03/20 05/03/20 22:58 23:28 23:56 WBC RBC Hgb Hct MCV MCH MCHC RDW Plt Count MPV Immature Gran % (Auto) Neut % (Auto) Lymph % (Auto) [place] % (Auto) Eos % (Auto) Baso % (Auto) Lymph # (Auto) [place] # (Auto) Eos # (Auto) Baso # (Auto) Abs Immat Gran (auto) Absolute Neuts (auto) Absolute Nucleated RBC Nucleated RBC % (auto) Smear Tech's Comments PT INR APTT D-Dimer VBG pH 7.22 L VBG pCO2 57 VBG pO2 173 VBG HCO3 23 VBG O2 Saturation 97.0 VBG Base Excess -3.6 Sodium Potassium Chloride Carbon Dioxide Anion Gap BUN Creatinine Estim Creat Clear Calc Estimated GFR POC Glucose Random Glucose Lactic Acid 0.7 Calcium Ferritin Total Bilirubin AST ALT Alkaline Phosphatase Lactate Dehydrogenase Troponin I High Sens C-Reactive Protein B-Natriuretic Peptide Total Protein Albumin Procalcitonin Urine Color LISA Urine Appearance HAZY Urine pH 5.5 Ur Specific [place] >= 1.030 H Urine Protein 2+ H Urine Glucose (UA) NEG Urine Ketones NEG Urine Blood 2+ H Urine Nitrite NEG Ur Leukocyte Esterase NEG Urine RBC 50-75 H Urine WBC 1-4 Ur Squamous Epith Cells 1+ Urine Bacteria 2+ Stool Occult Blood Coronavirus (PCR) Influenza Type A (PCR) Influenza Type B (PCR) RSV RNA Qual (PCR) Blood Type Antibody Screen Crossmatch 05/04/20 05/04/20 05/04/20 01:40 02:42 03:40 WBC RBC Hgb Hct MCV MCH MCHC RDW Plt Count MPV Immature Gran % (Auto) Neut % (Auto) Lymph % (Auto) [place] % (Auto) Eos % (Auto) Baso % (Auto) Lymph # (Auto) [place] # (Auto) Eos # (Auto) Baso # (Auto) Abs Immat Gran (auto) Absolute Neuts (auto) Absolute Nucleated RBC Nucleated RBC % (auto) Smear Tech's Comments PT INR APTT D-Dimer VBG pH VBG pCO2 VBG pO2 VBG HCO3 VBG O2 Saturation VBG Base Excess Sodium Potassium Chloride Carbon Dioxide Anion Gap BUN Creatinine Estim Creat Clear Calc Estimated GFR POC Glucose 303 H 301 H 326 H Random Glucose Lactic Acid Calcium Ferritin Total Bilirubin AST ALT Alkaline Phosphatase Lactate Dehydrogenase Troponin I High Sens C-Reactive Protein B-Natriuretic Peptide Total Protein Albumin Procalcitonin Urine Color Urine Appearance Urine pH Ur Specific [place] Urine Protein Urine Glucose (UA) Urine Ketones Urine Blood Urine Nitrite Ur Leukocyte Esterase Urine RBC Urine WBC Ur Squamous Epith Cells Urine Bacteria Stool Occult Blood Coronavirus (PCR) Influenza Type A (PCR) Influenza Type B (PCR) RSV RNA Qual (PCR) Blood Type Antibody Screen Crossmatch 05/04/20 05/04/20 05/04/20 04:37 05:45 05:45 WBC RBC Hgb Hct MCV MCH MCHC RDW Plt Count MPV Immature Gran % (Auto) Neut % (Auto) Lymph % (Auto) [place] % (Auto) Eos % (Auto) Baso % (Auto) Lymph # (Auto) [place] # (Auto) Eos # (Auto) Baso # (Auto) Abs Immat Gran (auto) Absolute Neuts (auto) Absolute Nucleated RBC Nucleated RBC % (auto) Smear Tech's Comments PT INR APTT D-Dimer VBG pH VBG pCO2 VBG pO2 VBG HCO3 VBG O2 Saturation VBG Base Excess Sodium 135 Potassium 5.3 H Chloride 99 Carbon Dioxide 22 Anion Gap 19 BUN 98 H* Creatinine 2.75 H Estim Creat Clear Calc 53.0 Estimated GFR 25 POC Glucose 312 H Random Glucose 315 H Lactic Acid Calcium 6.1 L D Ferritin 2245 H Total Bilirubin AST ALT Alkaline Phosphatase Lactate Dehydrogenase Troponin I High Sens C-Reactive Protein B-Natriuretic Peptide Total Protein Albumin Procalcitonin Urine Color Urine Appearance Urine pH Ur Specific [place] Urine Protein Urine Glucose (UA) Urine Ketones Urine Blood Urine Nitrite Ur Leukocyte Esterase Urine RBC Urine WBC Ur Squamous Epith Cells Urine Bacteria Stool Occult Blood Coronavirus (PCR) Influenza Type A (PCR) Influenza Type B (PCR) RSV RNA Qual (PCR) Blood Type Antibody Screen Crossmatch 05/04/20 05/04/20 05/04/20 05:45 05:45 05:46 WBC 5.3 RBC 2.52 L Hgb 7.5 L Hct 24.8 L MCV 98.4 H MCH 29.8 MCHC 30.2 L RDW 17.2 H Plt Count 110 L MPV 9.8 Immature Gran % (Auto) 1.3 H Neut % (Auto) 92.6 H Lymph % (Auto) 2.7 L [place] % (Auto) 3.4 Eos % (Auto) 0.0 Baso % (Auto) 0.0 Lymph # (Auto) 0.1 L [place] # (Auto) 0.2 Eos # (Auto) 0.0 Baso # (Auto) 0.0 Abs Immat Gran (auto) 0.07 H Absolute Neuts (auto) 4.9 Absolute Nucleated RBC 0.170 H Nucleated RBC % (auto) 3.2 H Smear Tech's Comments VERIFIED PT INR APTT D-Dimer VBG pH 7.31 L VBG pCO2 47 VBG pO2 68 VBG HCO3 24 VBG O2 Saturation 87.0 VBG Base Excess -1.9 Sodium Potassium Chloride Carbon Dioxide Anion Gap BUN Creatinine Estim Creat Clear Calc Estimated GFR POC Glucose 285 H Random Glucose Lactic Acid Calcium Ferritin Total Bilirubin AST ALT Alkaline Phosphatase Lactate Dehydrogenase Troponin I High Sens C-Reactive Protein B-Natriuretic Peptide Total Protein Albumin Procalcitonin Urine Color Urine Appearance Urine pH Ur Specific [place] Urine Protein Urine Glucose (UA) Urine Ketones Urine Blood Urine Nitrite Ur Leukocyte Esterase Urine RBC Urine WBC Ur Squamous Epith Cells Urine Bacteria Stool Occult Blood Coronavirus (PCR) Influenza Type A (PCR) Influenza Type B (PCR) RSV RNA Qual (PCR) Blood Type Antibody Screen Crossmatch 05/04/20 05/04/20 05/04/20 06:36 08:07 09:10 WBC RBC Hgb Hct MCV MCH MCHC RDW Plt Count MPV Immature Gran % (Auto) Neut % (Auto) Lymph % (Auto) [place] % (Auto) Eos % (Auto) Baso % (Auto) Lymph # (Auto) [place] # (Auto) Eos # (Auto) Baso # (Auto) Abs Immat Gran (auto) Absolute Neuts (auto) Absolute Nucleated RBC Nucleated RBC % (auto) Smear Tech's Comments PT INR APTT D-Dimer VBG pH VBG pCO2 VBG pO2 VBG HCO3 VBG O2 Saturation VBG Base Excess Sodium Potassium Chloride Carbon Dioxide Anion Gap BUN Creatinine Estim Creat Clear Calc Estimated GFR POC Glucose 285 H 253 H 239 H Random Glucose Lactic Acid Calcium Ferritin Total Bilirubin AST ALT Alkaline Phosphatase Lactate Dehydrogenase Troponin I High Sens C-Reactive Protein B-Natriuretic Peptide Total Protein Albumin Procalcitonin Urine Color Urine Appearance Urine pH Ur Specific [place] Urine Protein Urine Glucose (UA) Urine Ketones Urine Blood Urine Nitrite Ur Leukocyte Esterase Urine RBC Urine WBC Ur Squamous Epith Cells Urine Bacteria Stool Occult Blood Coronavirus (PCR) Influenza Type A (PCR) Influenza Type B (PCR) RSV RNA Qual (PCR) Blood Type Antibody Screen Crossmatch Progress Note: A&P Assessment and plan (1) COVID-19: Status: Acute (2) Anemia: Status: Acute (3) Respiratory failure with hypoxia: Status: Acute (4) Respiratory failure requiring intubation: Status: Acute (5) Nephrotic syndrome: Problem details: Contributor to fluid retention; will need outpatient slow titration of JEANINE I to reduce proteinuria Status: Acute (6) Chronic kidney disease (CKD) stage G3b/A3, moderately decreased glomerular filtration rate (GFR) between 30-44 mL/min/1.73 square meter and albuminuria creatinine ratio greater than 300 mg/g: Problem details: Diabetic nephropathy with nephrotic range proteinuria Status: Acute (7) Obesity hypoventilation syndrome: Status: Acute (8) Opioid use disorder: Status: Acute (9) CHF (congestive heart failure): Status: Acute (10) JOSE (acute kidney injury): Status: Acute (11) Acute on chronic right heart failure: Status: Acute (12) New onset of congestive heart failure: Status: Acute (13) Dyspnea: Problem details: cont same meds; 20 min reviewing chart evaluating patient and documenting Status: Acute (14) Congestive heart failure: Status: Acute (15) Phantom limb pain: Problem details: I DEMONSTRATED HOW TO USE BELBUCA BY APPLYING A SAMPLE TO HIS RIGHT CHEEK Status: Acute (16) Diabetic neuropathy: Status: Acute (17) Morbid obesity: Status: Acute (18) Diabetes mellitus: Problem details: DM poorly controlled; remains hyperglycemic now and has a positive anion gap metabolic acidosis and today will receive 1 unit of convalescent plasma and will remain on an IV insulin drip as the acidosis now seems to have resolved and will follow CVP so as not to create a pulmonary edema situation superimposed Status: Acute (19) Diabetic ketoacidosis: Status: Acute Time Spent With Patient Time: Total time spent is greater than 50% in coordination of care (as documented) at patient's floor/unit and/or counseling patient: Total time spent with greater than 50% in coordination of care (as documented) at patient's floor/unit and/or counseling patient:: 45
[2020-05-04 10:29] LABS: Glucose, Whole Blood 240 mg/dL (60-115)
[2020-05-04] MEDS: propofoL 1,000 MG/100 ML VIAL 55.2 MG IVCONT ×3 (11:06→14:56)
[2020-05-04 11:11] LABS: Glucose, Whole Blood 225 mg/dL (60-115)
--- NOTE | 2020-05-04 11:19 | PC.NURSE ---
Patient remains on Fentany and Propofol for sedation. Patient noted to be asynchronous with the vent, RR in the 30s, and trying to reach of ET tube. Fentanyl and Propofol being titrate, see drug titration documentation. Restraints remain in place for patient safety.
[2020-05-04] MEDS: Midazolam HCl/PF 2 MG/2 ML VIAL 3 MG IVPUSH ×2 (12:14→13:35)
[2020-05-04 12:21] LABS: Glucose, Whole Blood 228 mg/dL (60-115)
[2020-05-04] MEDS: fentaNYL citrate/NS 1,000 MCG/100 ML PLAST..BAG 20 MCG IVCONT ×3 (12:56→23:50)
[2020-05-04] MEDS: Insulin Regular/NS 100 UNIT/100 ML PLAST..BAG 11 UNIT IVCONT (12:57)
[2020-05-04 13:17] LABS: Glucose, Whole Blood 213 mg/dL (60-115)
[2020-05-04 14:28] LABS: Glucose, Whole Blood 230 mg/dL (60-115)
--- NOTE | 2020-05-04 14:48 | W.PM.IDCN ---
History of Present Illness Data of Consult Service Date: 05/04/20 Requesting physician: Sharlene Bryson Primary Care Provider: Unknown Physician HPI Reason for consult: COVID He presents to hospital with hypercapnic respiratory failure He reports diagnosis of COVID on 05/01 He has been in hospital earlier in month due to multifactorial respiratory failure He has been intubated due to inability to breath Review of Systems Review of Systems: Yes unobtainable due to endotracheal tube PMFSH Past Medical History Medical History (Updated 05/16/20 @ 12:12 by Efraín Baxter MD) CHF (congestive heart failure) Chronic pain Congestive heart failure Diabetic neuropathy Dyspnea Gram negative sepsis Hypertension Morbid obesity New onset of congestive heart failure Obesity hypoventilation syndrome Opioid use disorder Phantom limb pain Respiratory failure requiring intubation Tick bite of back Family History Family History Father No problems noted. Mother No problems noted. Family history: reviewed and not pertinent Surgical History Surgical History History of right lower limb amputation Hx of cholecystectomy Social History Social History Household Members: Unknown / Unable to assess Housing: Unknown / Unable to assess Alcohol intake: never Smoking Status: Former smoker Tobacco Type: Cigarette Packs Per Day: 3 Cigarettes Per Day: 60.0 Years Smoked: 25 Substance Use Type: Opiates service: No Current occupational status: unemployed Meds Allergies Allergy/AdvReac Type Severity Reaction Status Date / Time penicillin V Allergy Unknown hives Verified 05/02/20 12:48 Home Medications Medication Instructions Recorded Confirmed Type acetaminophen 500 mg tablet 1,000 mg PO Q8-10H PRN 01/18/20 05/03/20 History aspirin 81 mg tablet,delayed 81 mg PO DAILY 01/18/20 05/03/20 History release calcium carbonate 500 mg calcium 500 mg PO DAILY 01/18/20 05/03/20 History (1,250 mg) tablet clonidine HCl 0.1 mg tablet 0.1 mg PO BID 01/18/20 05/03/20 History cyclobenzaprine 5 mg tablet 5 mg PO TID PRN 01/18/20 05/03/20 History ferrous sulfate 325 mg (65 mg 325 mg PO DAILY 01/18/20 05/03/20 History iron) tablet fluticasone propionate 50 1 spray INTRANASAL BID 01/18/20 05/03/20 History mcg/actuation nasal spray,suspension melatonin 3 mg capsule 6 mg PO BEDTIME PRN 01/18/20 05/03/20 History omeprazole 20 mg capsule,delayed 20 mg PO BID 01/18/20 05/03/20 History release pravastatin 10 mg tablet 10 mg PO BEDTIME 01/18/20 05/03/20 History topiramate 100 mg tablet 100 mg PO BEDTIME 01/18/20 05/03/20 History trazodone 50 mg tablet 50 mg PO BEDTIME PRN 01/18/20 05/03/20 History facial-body wipes #384 ea 02/20/20 05/02/20 History levothyroxine 37.5 mcg PO DAILY 04/06/20 05/03/20 History loperamide 2 mg PO Q4H PRN 05/03/20 05/03/20 History Physical Exam Vital Signs: Vital Signs: Last Vital Signs Temp 101.3 F H 05/04/20 12:57 Pulse 95 05/04/20 14:00 Resp 18 05/04/20 14:00 BP 118/48 L 05/04/20 14:00 Pulse Ox 91 L 05/04/20 14:00 Body Mass Index 63.3 Const: General: cooperative HENMT: Head: Yes normal to inspection Mouth: Normal oral and palatal mucosa present Eyes: General: appearance normal, both eyes and all related structures Resp: Effort & Inspection: normal respiratory effort Cardio: Rate: regular rate Rhythm: regular rhythm GI: Palpation (GI): Soft to palpation and nontender Skin: General skin exam: no rashes or lesions noted Neuro: Other: vented Assessment and Plan (1) COVID-19: Status: Acute Would give Remdesivir even though renal insufficiency as benefit outweighs risk Would give Dexamethasone Can choose convalescent plasma since presumably early in disease process Supportive oxygen May continue Doxycycline at this time (2) Respiratory failure with hypoxia: Status: Acute (3) Respiratory failure requiring intubation: Status: Inactive Results Labs CBC & Chem 7: 05/16/20 05:20 05/16/20 05:20 Labs: Short CBC 05/03/20 05/04/20 Range/Units 16:09 05:45 WBC 4.4 L 5.3 (4.8-10.8) X10*3/uL Hgb 7.9 L D 7.5 L (14.0-18.0) g/dl Hct 25.7 L D 24.8 L (42-52) % Plt Count 107 L 110 L (160-400) X10*3/uL BMP 05/03/20 05/04/20 16:09 05:45 Sodium 135 135 Potassium 5.5 H D 5.3 H Chloride 96 99 Carbon Dioxide 24 22 BUN 94 H* D 98 H* Creatinine 2.74 H 2.75 H Calcium 6.5 L D 6.1 L D Liver Function 05/03/20 Range/Units 16:09 Total Bilirubin 1.0 (0.0-1.0) mg/dL AST 342 H (5-37) U/L ALT 292 H (0-40) U/L Alkaline Phosphatase 90 D (39-117) U/L Albumin 3.3 L (3.5-5.0) g/dL Urine 05/03/20 Range/Units 23:56 Urine Color LISA Urine Appearance HAZY Urine pH 5.5 (5.0-8.0) Ur Specific [place] >= 1.030 H (1.005-1.025) Urine Protein 2+ H (NEG-TRACE) MG/DL Urine Glucose (UA) NEG (NEG) MG/DL Microbiology Microbiology Results: Microbiology 05/04/20 08:10 Sputum - Suctioned Gram Stain - Final
[2020-05-04 16:44] LABS: Glucose, Whole Blood 191 mg/dL (60-115)
[2020-05-04 17:20] LABS: Glucose, Whole Blood 193 mg/dL (60-115)
[2020-05-04] MEDS: Remdesivir 200 MG in 0.9 % Sodium Chloride 210 ML 105 MG IV (17:59)
[2020-05-04 19:27] LABS: Glucose, Whole Blood 179 mg/dL (60-115)
[2020-05-04] MEDS: Midazolam HCl/NS 50 MG/50 ML PLAST..BAG IVCONT (19:39)
[2020-05-04] MEDS: Insulin Regular/NS 100 UNIT/100 ML PLAST..BAG 12 UNIT IVCONT (20:35)
[2020-05-04 21:24] LABS: Glucose, Whole Blood 169 mg/dL (60-115)
[2020-05-04 23:24] LABS: Glucose, Whole Blood 174 mg/dL (60-115)
[2020-05-05] VITALS (36 sets, daily range): BP systolic 99–172; BP diastolic 39–71; PULSE 74–94; RESP 18–21; TEMP 38.2–39.3; O2SAT 04–100; BMI 67.7
--- NOTE | 2020-05-05 | XR_ITS ---
EXAMINATION: XR CHEST CLINICAL INFORMATION: Bilateral lung opacities/infiltrates COMPARISON: Chest 05/03/2020 TECHNIQUE: Frontal view of the chest was obtained. FINDINGS: Extensive bilateral patchy infiltrates, stable. Heart size enlarged. There is a endotracheal tube with its tip approximate 4 cm above the valerie. A right central venous catheter lies in the proximal SVC. No gross bony abnormality. XR/XR chest 1V IMPRESSION: Change in significant bilateral confluent infiltrates, support lines and catheters from 05/03/2020.
[2020-05-05] MEDS: Doxycycline Hyclate 100 MG in 0.9 % Sodium Chloride 250 ML 166.7 MG IV ×2 (01:00→12:44)
[2020-05-05 01:23] LABS: Glucose, Whole Blood 152 mg/dL (60-115)
[2020-05-05] MEDS: propofoL 1,000 MG/100 ML VIAL 44.16 MG IVCONT ×6 (01:35→10:13)
[2020-05-05 03:17] LABS: Glucose, Whole Blood 129 mg/dL (60-115)
[2020-05-05 04:33] LABS: Glucose, Whole Blood 131 mg/dL (60-115)
[2020-05-05] MEDS: Insulin Regular/NS 100 UNIT/100 ML PLAST..BAG 11 UNIT IVCONT (05:09)
[2020-05-05] MEDS: fentaNYL citrate/NS 1,000 MCG/100 ML PLAST..BAG 20 MCG IVCONT ×2 (05:10→10:13)
[2020-05-05 05:24] LABS: Hematocrit 23.1 % (42-52); Imm Gran Abs Auto 0.04 X10*3/uL (0.00-0.03); Imm Gran Pct Auto 1.2 % (0.0-0.4); Lymphocytes Absolute Auto 0.2 X10*3/uL (1.2-4.9); MANUAL DIFF FLAG SCAN; Mean Corpuscular HGB Conc 30.3 g/dl (31.0-36.0); Mean Corpuscular Hemoglobin 29.9 pg (27.0-33.0); Mean Corpuscular Volume 98.7 fL (80-98); Mean Platelet Volume 9.7 fL (9.4-12.4); Monocytes Absolute Auto 0.2 X10*3/uL (0.1-1.2); Monocytes Percent Auto 6.8 % (2-11); NRBC Pct Auto 4.3 /100WBC (0.0-0.2); Neutrophils Absolute Auto 2.8 X10*3/uL (2.0-8.3); Platelet Count 91 X10*3/uL (160-400); Red Blood Count 2.34 X10*6/uL (4.60-5.80); Red Cell Distribution Width 17.2 % (11.0-16.0); SCAN SMEAR FLAG 1; White Blood Count 3.2 X10*3/uL (4.8-10.8)
[2020-05-05 05:32] LABS: Base Excess VBG 2.9 mmol/L; HCO3 VBG 27 mmol/L; PCO2 VBG 43 mmHg; PO2 VBG 59 mmHg
[2020-05-05 05:45] LABS: D Dimer 2088 NG/ML
[2020-05-05 05:54] LABS: Anion Gap 14 (12-20); Blood Urea Nitrogen 80 mg/dL (9-16); C Reactive Protein 13.45 mg/dL (< or = 0.50); Calcium 6.2 mg/dL (8.4-10.2); Carbon Dioxide 26 mmol/L (22-29); Chloride 107 mmol/L (96-108); Estimated Glomerular Filt Rate 38; Glucose Random 130 mg/dL (60-115); Lactate Dehydrogenase 405 U/L (118-273); Magnesium 2.6 mg/dL (1.6-2.6); Phosphorus 3.2 mg/dL (2.7-4.5); Potassium 4.2 mmol/l (3.3-5.1); Sodium 143 mmol/L (135-145)
[2020-05-05 05:55] LABS: SLIDE REVIEW VERIFIED
[2020-05-05 06:09] LABS: Glucose, Whole Blood 124 mg/dL (60-115)
[2020-05-05 06:10] LABS: Ferritin 803 ng/mL (20-250)
--- NOTE | 2020-05-05 06:15 | PC.NURSE ---
pt is sedated. he has exhibiting emergemce from sedation earlier in the night despite max propofol and fentanyl. versed infusion implemented at 2mg/hr with resolution of restlessness and discordant breathing. if sedation is briefly paused, pt will localize hands towards face. wrist restraints in place. complexion pale. pitting edema and dermatitis left lower leg. with great effort, pt transferred to the medical center bed. stage 2 break down noted right gluteal fold and coccyx. pressure area photographed placed in chart. with adequate sedation pt vt 600-800 ml. breath sounds diminished throughout. cvp 15-20 ecg displays sr with infrequent pacs. insulin drip titrated as per diabetic protocol. temp 100.1-101. abdomen mordidly obese. ogt clamped. u/o 100-200 ml/hr.
[2020-05-05 06:37] LABS: Procalcitonin 1.03 ng/mL
[2020-05-05 06:53] LABS: Glucose, Whole Blood 123 mg/dL (60-115)
[2020-05-05] MEDS: Midazolam HCl/NS 50 MG/50 ML PLAST..BAG IVCONT (07:10)
[2020-05-05] MEDS: Chlorhexidine Gluc Oral Rinse 15 ML MOUTHWASH BUCCAL ×3 (08:17→20:34)
[2020-05-05] MEDS: Heparin Sodium,Porcine 5,000 UNIT/ML VIAL 5000 UNIT SUBCUT ×2 (08:18→20:35)
[2020-05-05] MEDS: dexAMETHasone sod phosphate 4 MG/ML VIAL 6 MG IVPUSH (08:18)
[2020-05-05 08:57] LABS: Glucose, Whole Blood 110 mg/dL (60-115)
[2020-05-05 10:00] LABS: Glucose, Whole Blood 133 mg/dL (60-115)
[2020-05-05 11:47] LABS: Procalcitonin 0.87 ng/mL
[2020-05-05 11:49] LABS: Glucose, Whole Blood 189 mg/dL (60-115)
[2020-05-05] MEDS: propofoL 1,000 MG/100 ML VIAL 55.2 MG IVCONT ×7 (12:02→22:29)
[2020-05-05 13:02] LABS: Lyme Abs Screen <0.90 index
[2020-05-05 14:09] LABS: Glucose, Whole Blood 224 mg/dL (60-115)
[2020-05-05] MEDS: fentaNYL citrate/NS 1,000 MCG/100 ML PLAST..BAG 30 MCG IVCONT ×3 (14:13→21:41)
[2020-05-05 14:54] LABS: Glucose, Whole Blood 236 mg/dL (60-115)
--- NOTE | 2020-05-05 15:36 | PM.CCPN ---
Subjective Subjective Date of Service: 05/05/20 Interval History: 49-year-old morbidly obese insulin-requiring diabetic right lower extremity amputee chronic stage III diabetic nephropathy with obesity hypoventilation and obstructive sleep apnea with a chronic cor pulmonale recently here with profound right heart failure but generalized edema and acute hypoxic respiratory failure be based on volume overload diuresed aggressively discharged and re-presented with altered mental status acute delirium acute on chronic hypercarbic and hypoxic respiratory failure this time from COVID-19 pneumonitis and ARDS requiring emergent intubation currently down to an FiO2 of 60% but had a fever spike and multiple cultures and blood is now growing Gram-negative rods sputum with significant polys growing Gram-positive cocci and he is covered with vancomycin and meropenem CVP is chronically elevated and rather than fluid bolusing today I added low-dose Levophed on atrophic support of his mean arterial pressure and because of his girth and total weight he is not a candidate for any of the x-ray or CT scan tables so all we can do is rule out free air under the diaphragm and treat him empirically with antibiotics for now Physical Exam Vital Signs: Vital Signs: Last Vital Signs Temp 102.6 F H 05/05/20 14:01 Pulse 89 05/05/20 14:01 Resp 18 05/05/20 14:01 BP 153/68 H 05/05/20 14:01 Pulse Ox 93 05/05/20 14:00 Body Mass Index 67.7 Const: Other: He can awaken when DU reduce his propofol Urine output has been adequate with improving BUN and creatinine so we know that there is cardiac output adequacy he is impossible to examine but bedside echo shows hyperdynamic left ventricle dilated and hypo functional right ventricle Lungs bilateral coarse ventilatory sounds Abdomen tolerating feedings nondistended Skin is intact no wounds no cellulitis Objective Data Labs CBC & Chem 7: 05/05/20 05:07 05/05/20 05:07 Labs: Laboratory Results - last 24 hr 05/03/20 05/04/20 05/04/20 17:22 05:45 16:30 WBC RBC Hgb Hct MCV MCH MCHC RDW Plt Count MPV Immature Gran % (Auto) Neut % (Auto) Lymph % (Auto) [place] % (Auto) Eos % (Auto) Baso % (Auto) Lymph # (Auto) [place] # (Auto) Eos # (Auto) Baso # (Auto) Abs Immat Gran (auto) Absolute Neuts (auto) Absolute Nucleated RBC Nucleated RBC % (auto) Smear Tech's Comments D-Dimer VBG pH VBG pCO2 VBG pO2 VBG HCO3 VBG O2 Saturation VBG Base Excess Sodium Potassium Chloride Carbon Dioxide Anion Gap BUN Creatinine Estim Creat Clear Calc Estimated GFR POC Glucose 191 H Random Glucose Calcium Phosphorus Magnesium Ferritin Lactate Dehydrogenase Total Creatine Kinase C-Reactive Protein Procalcitonin Lyme Screen IgG & IgM <0.90 Lyme Progressive Test TNP Blood Type A Negative Antibody Screen NEGATIVE Crossmatch See Detail 05/04/20 05/04/20 05/04/20 17:12 19:22 21:19 WBC RBC Hgb Hct MCV MCH MCHC RDW Plt Count MPV Immature Gran % (Auto) Neut % (Auto) Lymph % (Auto) [place] % (Auto) Eos % (Auto) Baso % (Auto) Lymph # (Auto) [place] # (Auto) Eos # (Auto) Baso # (Auto) Abs Immat Gran (auto) Absolute Neuts (auto) Absolute Nucleated RBC Nucleated RBC % (auto) Smear Tech's Comments D-Dimer VBG pH VBG pCO2 VBG pO2 VBG HCO3 VBG O2 Saturation VBG Base Excess Sodium Potassium Chloride Carbon Dioxide Anion Gap BUN Creatinine Estim Creat Clear Calc Estimated GFR POC Glucose 193 H 179 H 169 H Random Glucose Calcium Phosphorus Magnesium Ferritin Lactate Dehydrogenase Total Creatine Kinase C-Reactive Protein Procalcitonin Lyme Screen IgG & IgM Lyme Progressive Test Blood Type Antibody Screen Crossmatch 05/04/20 05/05/20 05/05/20 23:18 01:08 03:10 WBC RBC Hgb Hct MCV MCH MCHC RDW Plt Count MPV Immature Gran % (Auto) Neut % (Auto) Lymph % (Auto) [place] % (Auto) Eos % (Auto) Baso % (Auto) Lymph # (Auto) [place] # (Auto) Eos # (Auto) Baso # (Auto) Abs Immat Gran (auto) Absolute Neuts (auto) Absolute Nucleated RBC Nucleated RBC % (auto) Smear Tech's Comments D-Dimer VBG pH VBG pCO2 VBG pO2 VBG HCO3 VBG O2 Saturation VBG Base Excess Sodium Potassium Chloride Carbon Dioxide Anion Gap BUN Creatinine Estim Creat Clear Calc Estimated GFR POC Glucose 174 H 152 H 129 H Random Glucose Calcium Phosphorus Magnesium Ferritin Lactate Dehydrogenase Total Creatine Kinase C-Reactive Protein Procalcitonin Lyme Screen IgG & IgM Lyme Progressive Test Blood Type Antibody Screen Crossmatch 05/05/20 05/05/20 05/05/20 04:24 05:07 05:07 WBC 3.2 L RBC 2.34 L Hgb 7.0 L* Hct 23.1 L MCV 98.7 H MCH 29.9 MCHC 30.3 L RDW 17.2 H Plt Count 91 L MPV 9.7 Immature Gran % (Auto) 1.2 H Neut % (Auto) 87.0 H Lymph % (Auto) 5.0 L [place] % (Auto) 6.8 Eos % (Auto) 0.0 Baso % (Auto) 0.0 Lymph # (Auto) 0.2 L [place] # (Auto) 0.2 Eos # (Auto) 0.0 Baso # (Auto) 0.0 Abs Immat Gran (auto) 0.04 H Absolute Neuts (auto) 2.8 Absolute Nucleated RBC 0.140 H Nucleated RBC % (auto) 4.3 H Smear Tech's Comments VERIFIED D-Dimer VBG pH VBG pCO2 VBG pO2 VBG HCO3 VBG O2 Saturation VBG Base Excess Sodium 143 Potassium 4.2 D Chloride 107 Carbon Dioxide 26 Anion Gap 14 BUN 80 H* Creatinine 1.88 H Estim Creat Clear Calc 81.0 Estimated GFR 38 POC Glucose 131 H Random Glucose 130 H D Calcium 6.2 L Phosphorus 3.2 Magnesium 2.6 Ferritin 803 H Lactate Dehydrogenase 405 H Total Creatine Kinase C-Reactive Protein 13.45 H Procalcitonin Lyme Screen IgG & IgM Lyme Progressive Test Blood Type Antibody Screen Crossmatch 05/05/20 05/05/20 05/05/20 05:07 05:07 05:07 WBC RBC Hgb Hct MCV MCH MCHC RDW Plt Count MPV Immature Gran % (Auto) Neut % (Auto) Lymph % (Auto) [place] % (Auto) Eos % (Auto) Baso % (Auto) Lymph # (Auto) [place] # (Auto) Eos # (Auto) Baso # (Auto) Abs Immat Gran (auto) Absolute Neuts (auto) Absolute Nucleated RBC Nucleated RBC % (auto) Smear Tech's Comments D-Dimer 2088 VBG pH VBG pCO2 VBG pO2 VBG HCO3 VBG O2 Saturation VBG Base Excess Sodium Potassium Chloride Carbon Dioxide Anion Gap BUN Creatinine Estim Creat Clear Calc Estimated GFR POC Glucose Random Glucose Calcium Phosphorus Magnesium Ferritin Lactate Dehydrogenase Total Creatine Kinase 338 H C-Reactive Protein Procalcitonin 1.03 Lyme Screen IgG & IgM Lyme Progressive Test Blood Type Antibody Screen Crossmatch 05/05/20 05/05/20 05/05/20 05:07 06:03 06:45 WBC RBC Hgb Hct MCV MCH MCHC RDW Plt Count MPV Immature Gran % (Auto) Neut % (Auto) Lymph % (Auto) [place] % (Auto) Eos % (Auto) Baso % (Auto) Lymph # (Auto) [place] # (Auto) Eos # (Auto) Baso # (Auto) Abs Immat Gran (auto) Absolute Neuts (auto) Absolute Nucleated RBC Nucleated RBC % (auto) Smear Tech's Comments D-Dimer VBG pH 7.40 VBG pCO2 43 VBG pO2 59 VBG HCO3 27 VBG O2 Saturation 89.0 VBG Base Excess 2.9 Sodium Potassium Chloride Carbon Dioxide Anion Gap BUN Creatinine Estim Creat Clear Calc Estimated GFR POC Glucose 124 H 123 H Random Glucose Calcium Phosphorus Magnesium Ferritin Lactate Dehydrogenase Total Creatine Kinase C-Reactive Protein Procalcitonin Lyme Screen IgG & IgM Lyme Progressive Test Blood Type Antibody Screen Crossmatch 05/05/20 05/05/20 05/05/20 08:40 09:50 10:36 WBC RBC Hgb Hct MCV MCH MCHC RDW Plt Count MPV Immature Gran % (Auto) Neut % (Auto) Lymph % (Auto) [place] % (Auto) Eos % (Auto) Baso % (Auto) Lymph # (Auto) [place] # (Auto) Eos # (Auto) Baso # (Auto) Abs Immat Gran (auto) Absolute Neuts (auto) Absolute Nucleated RBC Nucleated RBC % (auto) Smear Tech's Comments D-Dimer VBG pH VBG pCO2 VBG pO2 VBG HCO3 VBG O2 Saturation VBG Base Excess Sodium Potassium Chloride Carbon Dioxide Anion Gap BUN Creatinine Estim Creat Clear Calc Estimated GFR POC Glucose 110 133 H Random Glucose Calcium Phosphorus Magnesium Ferritin Lactate Dehydrogenase Total Creatine Kinase C-Reactive Protein Procalcitonin 0.87 Lyme Screen IgG & IgM Lyme Progressive Test Blood Type Antibody Screen Crossmatch 05/05/20 05/05/20 05/05/20 11:46 14:05 14:50 WBC RBC Hgb Hct MCV MCH MCHC RDW Plt Count MPV Immature Gran % (Auto) Neut % (Auto) Lymph % (Auto) [place] % (Auto) Eos % (Auto) Baso % (Auto) Lymph # (Auto) [place] # (Auto) Eos # (Auto) Baso # (Auto) Abs Immat Gran (auto) Absolute Neuts (auto) Absolute Nucleated RBC Nucleated RBC % (auto) Smear Tech's Comments D-Dimer VBG pH VBG pCO2 VBG pO2 VBG HCO3 VBG O2 Saturation VBG Base Excess Sodium Potassium Chloride Carbon Dioxide Anion Gap BUN Creatinine Estim Creat Clear Calc Estimated GFR POC Glucose 189 H 224 H 236 H Random Glucose Calcium Phosphorus Magnesium Ferritin Lactate Dehydrogenase Total Creatine Kinase C-Reactive Protein Procalcitonin Lyme Screen IgG & IgM Lyme Progressive Test Blood Type Antibody Screen Crossmatch Microbiology Microbiology Results: Microbiology 05/03/20 16:12 Blood - Venous Blood Culture - Preliminary 05/04/20 08:10 Sputum - Suctioned Gram Stain - Final 05/04/20 08:10 Sputum - Suctioned Sputum Culture - Preliminary 05/04/20 10:00 Urine Catheterized - Moser Catheter Urine Culture - Final No growth. 05/03/20 16:12 Blood - Venous Blood Culture - Preliminary No growth after 24 hours. Progress Note: A&P Assessment and plan (1) Diabetic ketoacidosis: Status: Acute (2) COVID-19: Problem details: He has what appears to be acute COVID He has renal failure He has multiple comorbidities including high BMI,GONZALEZ,narcotic dependency He has renal insufficiency Status: Acute (3) Anemia: Status: Acute (4) Respiratory failure with hypoxia: Status: Acute (5) Respiratory failure requiring intubation: Status: Acute (6) Nephrotic syndrome: Problem details: Contributor to fluid retention; will need outpatient slow titration of JEANINE I to reduce proteinuria Status: Acute (7) Chronic kidney disease (CKD) stage G3b/A3, moderately decreased glomerular filtration rate (GFR) between 30-44 mL/min/1.73 square meter and albuminuria creatinine ratio greater than 300 mg/g: Problem details: Diabetic nephropathy with nephrotic range proteinuria Status: Acute (8) Obesity hypoventilation syndrome: Status: Acute (9) Opioid use disorder: Status: Acute (10) CHF (congestive heart failure): Status: Acute (11) JOSE (acute kidney injury): Status: Acute (12) Acute on chronic right heart failure: Status: Acute (13) Tick bite of back: Status: Acute (14) New onset of congestive heart failure: Status: Acute (15) Dyspnea: Problem details: cont same meds; 20 min reviewing chart evaluating patient and documenting Status: Acute (16) Congestive heart failure: Status: Acute (17) Phantom limb pain: Problem details: I DEMONSTRATED HOW TO USE BELBUCA BY APPLYING A SAMPLE TO HIS RIGHT CHEEK Status: Acute (18) Diabetic neuropathy: Status: Acute (19) Morbid obesity: Status: Acute (20) Diabetes mellitus: Problem details: DM poorly controlled; remains hyperglycemic now and has a positive anion gap metabolic acidosis and today will receive 1 unit of convalescent plasma and will remain on an IV insulin drip as the acidosis now seems to have resolved and will follow CVP so as not to create a pulmonary edema situation superimposed Status: Acute (21) ARDS (adult respiratory distress syndrome): Status: Acute (22) Gram negative sepsis: Status: Acute Assessment and Plan: Since completing the re-culturing process he has been maintained on IV meropenem and IV vancomycin with final species yet to be determined and source which is becoming impossible because of his weight and girth so I will only rule out free air under the diaphragm with a chest x-ray Time Spent With Patient Time: Total time spent is greater than 50% in coordination of care (as documented) at patient's floor/unit and/or counseling patient: Total time spent with greater than 50% in coordination of care (as documented) at patient's floor/unit and/or counseling patient:: 45
[2020-05-05 16:45] LABS: Glucose, Whole Blood 227 mg/dL (60-115)
[2020-05-05 17:09] LABS: Glucose, Whole Blood 228 mg/dL (60-115)
[2020-05-05] MEDS: Remdesivir 100 MG in 0.9 % Sodium Chloride 230 ML 115 MG IV (17:41)
[2020-05-05 18:12] LABS: Glucose, Whole Blood 223 mg/dL (60-115)
--- NOTE | 2020-05-05 18:14 | PC.NURSE ---
S/E Temp 102.7 BC obtained - /2 + gram neg rods- patient started on Vanco & Meropenum ID consulted and at bedside KUB ordered and completed Unable to obtain sputum culture - MD aware Urine culture negative Sedated with propofol, fentanyl, & versed Pupils 3-4mm, sluggish SR HR 80-90's MAP <65 - started on levophed gtt R IJ TLC patent - dressing changed LS dim throughout ETT 8, 25cm Vent settings PC 30 rate 18, peep 8, FIO2 decreased to 60% No inline secretions Insulin gtt maintaining per protocol No BM Urine o/p 125cc/hr, concentrated Stg II coccyx/R buttocks - repo q2hr, sizewise bed in place, bathed Hemoglobin 7.0 - 1 unit PRBC transfused
[2020-05-05 19:28] LABS: Glucose, Whole Blood 215 mg/dL (60-115)
[2020-05-05 20:02] LABS: Glucose, Whole Blood 209 mg/dL (60-115)
[2020-05-05] MEDS: Insulin Regular/NS 100 UNIT/100 ML PLAST..BAG 10 UNIT IVCONT (20:42)
[2020-05-05 21:00] LABS: Glucose, Whole Blood 200 mg/dL (60-115)
[2020-05-05 22:19] LABS: Glucose, Whole Blood 183 mg/dL (60-115)
--- NOTE | 2020-05-05 22:24 | P.PNID_ITS ---
Subjective Subjective Date of Service: 05/20/20 Interval History: he has been transferred to ICU overnight He has gram negative rods in blood,no gram positive seen Objective Data Labs CBC & Chem 7: 05/16/20 05:20 05/16/20 05:20 Labs: Laboratory Results - last 24 hr 05/03/20 05/04/20 05/04/20 17:22 05:45 23:18 WBC RBC Hgb Hct MCV MCH MCHC RDW Plt Count MPV Immature Gran % (Auto) Neut % (Auto) Lymph % (Auto) [place] % (Auto) Eos % (Auto) Baso % (Auto) Lymph # (Auto) [place] # (Auto) Eos # (Auto) Baso # (Auto) Abs Immat Gran (auto) Absolute Neuts (auto) Absolute Nucleated RBC Nucleated RBC % (auto) Smear Tech's Comments D-Dimer VBG pH VBG pCO2 VBG pO2 VBG HCO3 VBG O2 Saturation VBG Base Excess Sodium Potassium Chloride Carbon Dioxide Anion Gap BUN Creatinine Estim Creat Clear Calc Estimated GFR POC Glucose 174 H Random Glucose Calcium Phosphorus Magnesium Ferritin Lactate Dehydrogenase Total Creatine Kinase C-Reactive Protein Procalcitonin [place]yme Screen IgG & IgM <0.90 [place] Progressive Test TNP Blood Type A Negative Antibody Screen NEGATIVE Crossmatch See Detail 05/05/20 05/05/20 05/05/20 01:08 03:10 04:24 WBC RBC Hgb Hct MCV MCH MCHC RDW Plt Count MPV Immature Gran % (Auto) Neut % (Auto) Lymph % (Auto) [place] % (Auto) Eos % (Auto) Baso % (Auto) Lymph # (Auto) [place] # (Auto) Eos # (Auto) Baso # (Auto) Abs Immat Gran (auto) Absolute Neuts (auto) Absolute Nucleated RBC Nucleated RBC % (auto) Smear Tech's Comments D-Dimer VBG pH VBG pCO2 VBG pO2 VBG HCO3 VBG O2 Saturation VBG Base Excess Sodium Potassium Chloride Carbon Dioxide Anion Gap BUN Creatinine Estim Creat Clear Calc Estimated GFR POC Glucose 152 H 129 H 131 H Random Glucose Calcium Phosphorus Magnesium Ferritin Lactate Dehydrogenase Total Creatine Kinase C-Reactive Protein Procalcitonin [place]yme Screen IgG & IgM Lyme Progressive Test Blood Type Antibody Screen Crossmatch 05/05/20 05/05/20 05/05/20 05:07 05:07 05:07 WBC 3.2 L RBC 2.34 L Hgb 7.0 L* Hct 23.1 L MCV 98.7 H MCH 29.9 MCHC 30.3 L RDW 17.2 H Plt Count 91 L MPV 9.7 Immature Gran % (Auto) 1.2 H Neut % (Auto) 87.0 H Lymph % (Auto) 5.0 L [place] % (Auto) 6.8 Eos % (Auto) 0.0 Baso % (Auto) 0.0 Lymph # (Auto) 0.2 L [place] # (Auto) 0.2 Eos # (Auto) 0.0 Baso # (Auto) 0.0 Abs Immat Gran (auto) 0.04 H Absolute Neuts (auto) 2.8 Absolute Nucleated RBC 0.140 H Nucleated RBC % (auto) 4.3 H Smear Tech's Comments VERIFIED D-Dimer 2088 VBG pH VBG pCO2 VBG pO2 VBG HCO3 VBG O2 Saturation VBG Base Excess Sodium 143 Potassium 4.2 D Chloride 107 Carbon Dioxide 26 Anion Gap 14 BUN 80 H* Creatinine 1.88 H Estim Creat Clear Calc 81.0 Estimated GFR 38 POC Glucose Random Glucose 130 H D Calcium 6.2 L Phosphorus 3.2 Magnesium 2.6 Ferritin 803 H Lactate Dehydrogenase 405 H Total Creatine Kinase C-Reactive Protein 13.45 H Procalcitonin [place]yme Screen IgG & IgM [place]yme Progressive Test Blood Type Antibody Screen Crossmatch 05/05/20 05/05/20 05/05/20 05:07 05:07 05:07 WBC RBC Hgb Hct MCV MCH MCHC RDW Plt Count MPV Immature Gran % (Auto) Neut % (Auto) Lymph % (Auto) [place] % (Auto) Eos % (Auto) Baso % (Auto) Lymph # (Auto) [place] # (Auto) Eos # (Auto) Baso # (Auto) Abs Immat Gran (auto) Absolute Neuts (auto) Absolute Nucleated RBC Nucleated RBC % (auto) Smear Tech's Comments D-Dimer VBG pH 7.40 VBG pCO2 43 VBG pO2 59 VBG HCO3 27 VBG O2 Saturation 89.0 VBG Base Excess 2.9 Sodium Potassium Chloride Carbon Dioxide Anion Gap BUN Creatinine Estim Creat Clear Calc Estimated GFR POC Glucose Random Glucose Calcium Phosphorus Magnesium Ferritin Lactate Dehydrogenase Total Creatine Kinase 338 H C-Reactive Protein Procalcitonin 1.03 Lyme Screen IgG & IgM [place]yme Progressive Test Blood Type Antibody Screen Crossmatch 05/05/20 05/05/20 05/05/20 06:03 06:45 08:40 WBC RBC Hgb Hct MCV MCH MCHC RDW Plt Count MPV Immature Gran % (Auto) Neut % (Auto) Lymph % (Auto) [place] % (Auto) Eos % (Auto) Baso % (Auto) Lymph # (Auto) [place] # (Auto) Eos # (Auto) Baso # (Auto) Abs Immat Gran (auto) Absolute Neuts (auto) Absolute Nucleated RBC Nucleated RBC % (auto) Smear Tech's Comments D-Dimer VBG pH VBG pCO2 VBG pO2 VBG HCO3 VBG O2 Saturation VBG Base Excess Sodium Potassium Chloride Carbon Dioxide Anion Gap BUN Creatinine Estim Creat Clear Calc Estimated GFR POC Glucose 124 H 123 H 110 Random Glucose Calcium Phosphorus Magnesium Ferritin Lactate Dehydrogenase Total Creatine Kinase C-Reactive Protein Procalcitonin [place]yme Screen IgG & IgM [place]yme Progressive Test Blood Type Antibody Screen Crossmatch 05/05/20 05/05/20 05/05/20 09:50 10:36 11:46 WBC RBC Hgb Hct MCV MCH MCHC RDW Plt Count MPV Immature Gran % (Auto) Neut % (Auto) Lymph % (Auto) [place] % (Auto) Eos % (Auto) Baso % (Auto) Lymph # (Auto) [place] # (Auto) Eos # (Auto) Baso # (Auto) Abs Immat Gran (auto) Absolute Neuts (auto) Absolute Nucleated RBC Nucleated RBC % (auto) Smear Tech's Comments D-Dimer VBG pH VBG pCO2 VBG pO2 VBG HCO3 VBG O2 Saturation VBG Base Excess Sodium Potassium Chloride Carbon Dioxide Anion Gap BUN Creatinine Estim Creat Clear Calc Estimated GFR POC Glucose 133 H 189 H Random Glucose Calcium Phosphorus Magnesium Ferritin Lactate Dehydrogenase Total Creatine Kinase C-Reactive Protein Procalcitonin 0.87 Lyme Screen IgG & IgM Lyme Progressive Test Blood Type Antibody Screen Crossmatch 05/05/20 05/05/20 05/05/20 14:05 14:50 16:19 WBC RBC Hgb Hct MCV MCH MCHC RDW Plt Count MPV Immature Gran % (Auto) Neut % (Auto) Lymph % (Auto) [place] % (Auto) Eos % (Auto) Baso % (Auto) Lymph # (Auto) [place] # (Auto) Eos # (Auto) Baso # (Auto) Abs Immat Gran (auto) Absolute Neuts (auto) Absolute Nucleated RBC Nucleated RBC % (auto) Smear Tech's Comments D-Dimer VBG pH VBG pCO2 VBG pO2 VBG HCO3 VBG O2 Saturation VBG Base Excess Sodium Potassium Chloride Carbon Dioxide Anion Gap BUN Creatinine Estim Creat Clear Calc Estimated GFR POC Glucose 224 H 236 H 227 H Random Glucose Calcium Phosphorus Magnesium Ferritin Lactate Dehydrogenase Total Creatine Kinase C-Reactive Protein Procalcitonin [place]yme Screen IgG & IgM Lyme Progressive Test Blood Type Antibody Screen Crossmatch 05/05/20 05/05/20 05/05/20 17:00 18:00 19:19 WBC RBC Hgb Hct MCV MCH MCHC RDW Plt Count MPV Immature Gran % (Auto) Neut % (Auto) Lymph % (Auto) [place] % (Auto) Eos % (Auto) Baso % (Auto) Lymph # (Auto) [place] # (Auto) Eos # (Auto) Baso # (Auto) Abs Immat Gran (auto) Absolute Neuts (auto) Absolute Nucleated RBC Nucleated RBC % (auto) Smear Tech's Comments D-Dimer VBG pH VBG pCO2 VBG pO2 VBG HCO3 VBG O2 Saturation VBG Base Excess Sodium Potassium Chloride Carbon Dioxide Anion Gap BUN Creatinine Estim Creat Clear Calc Estimated GFR POC Glucose 228 H 223 H 215 H Random Glucose Calcium Phosphorus Magnesium Ferritin Lactate Dehydrogenase Total Creatine Kinase C-Reactive Protein Procalcitonin [place]yme Screen IgG & IgM Lyme Progressive Test Blood Type Antibody Screen Crossmatch 05/05/20 05/05/20 05/05/20 19:58 20:53 22:14 WBC RBC Hgb Hct MCV MCH MCHC RDW Plt Count MPV Immature Gran % (Auto) Neut % (Auto) Lymph % (Auto) [place] % (Auto) Eos % (Auto) Baso % (Auto) Lymph # (Auto) [place] # (Auto) Eos # (Auto) Baso # (Auto) Abs Immat Gran (auto) Absolute Neuts (auto) Absolute Nucleated RBC Nucleated RBC % (auto) Smear Tech's Comments D-Dimer VBG pH VBG pCO2 VBG pO2 VBG HCO3 VBG O2 Saturation VBG Base Excess Sodium Potassium Chloride Carbon Dioxide Anion Gap BUN Creatinine Estim Creat Clear Calc Estimated GFR POC Glucose 209 H 200 H 183 H Random Glucose Calcium Phosphorus Magnesium Ferritin Lactate Dehydrogenase Total Creatine Kinase C-Reactive Protein Procalcitonin [place]yme Screen IgG & IgM Lyme Progressive Test Blood Type Antibody Screen Crossmatch Microbiology Microbiology Results: Microbiology 05/03/20 16:12 Blood - Venous Blood Culture - Preliminary No growth after 48 hours. 05/03/20 16:12 Blood - Venous Blood Culture - Preliminary 05/04/20 08:10 Sputum - Suctioned Gram Stain - Final 05/04/20 08:10 Sputum - Suctioned Sputum Culture - Preliminary 05/04/20 10:00 Urine Catheterized - Moser Catheter Urine Culture - Final No growth. Physical Exam Vital Signs: Vital Signs: Last Vital Signs Temp 102.7 F H 05/05/20 22:00 Pulse 83 05/05/20 22:00 Resp 18 05/05/20 22:00 BP 109/52 L 05/05/20 22:00 Pulse Ox 92 05/05/20 22:00 Body Mass Index 67.7 Const: Other: intubated HENMT: Head: Yes normal to inspection Resp: Effort & Inspection: normal respiratory effort Cardio: Rate: regular rate Rhythm: regular rhythm GI: Palpation (GI): Soft to palpation and nontender Skin: General skin exam: no rashes or lesions noted Assessment and Plan Assessment and plan (1) Gram negative sepsis: Problem details: Possible abdominal or sputum source Status: Inactive Assessment and Plan: Merem Await results (2) ARDS (adult respiratory distress syndrome): Problem details: Stenotrophomonas sputum Status: Acute (3) COVID-19: Status: Acute Assessment and Plan: Dexamethasone and Remdesivir Time Spent With Patient Time: Total time spent is greater than 50% in coordination of care (as documented) at patient's floor/unit and/or counseling patient: Time with patient: 15 - 24 minutes
[2020-05-06] VITALS (32 sets, daily range): BP systolic 95–148; BP diastolic 39–72; PULSE 74–96; RESP 18–25; TEMP 38.8–39.7; O2SAT 90–97; BMI 67.0
[2020-05-06 00:30] LABS: Glucose, Whole Blood 159 mg/dL (60-115)
[2020-05-06] MEDS: fentaNYL citrate/NS 1,000 MCG/100 ML PLAST..BAG 30 MCG IVCONT ×7 (01:02→23:11)
[2020-05-06] MEDS: propofoL 1,000 MG/100 ML VIAL 55.2 MG IVCONT ×3 (01:59→05:00)
[2020-05-06 02:13] LABS: Glucose, Whole Blood 123 mg/dL (60-115)
[2020-05-06 03:12] LABS: Glucose, Whole Blood 120 mg/dL (60-115)
--- NOTE | 2020-05-06 05:00 | XR_ITS ---
EXAMINATION: XR CHEST CLINICAL INFORMATION: Covid COMPARISON: 05/05/2020 TECHNIQUE: Frontal view of the chest was obtained. FINDINGS: Endotracheal tube tip is suspected to lie approximately 4.3 cm above the valerie. Enteric tube likely courses into the stomach, though is not well seen distally. Right IJ central line tip lies in the region of the right brachiocephalic vein. Lung volumes are symmetric. There are extensive heterogeneous bilateral opacities, without significant interval change. No appreciable pneumothorax or significant pleural effusion. Cardiac silhouette remains enlarged. No acute osseous findings are seen. XR/XR chest 1V IMPRESSION: Extensive heterogeneous bilateral opacities, without significant interval change from 05/05/2020.
[2020-05-06 05:07] LABS: Glucose, Whole Blood 88 mg/dL (60-115)
[2020-05-06 05:24] LABS: Eosinophils Percent Auto 0.3 % (0-4); Hematocrit 27.4 % (42-52); Hemoglobin 8.1 g/dl (14.0-18.0); Imm Gran Abs Auto 0.06 X10*3/uL (0.00-0.03); Imm Gran Pct Auto 1.8 % (0.0-0.4); Lymphocytes Absolute Auto 0.4 X10*3/uL (1.2-4.9); Lymphocytes Percent Auto 10.8 % (20-40); Mean Corpuscular HGB Conc 29.6 g/dl (31.0-36.0); Mean Corpuscular Hemoglobin 30.2 pg (27.0-33.0); Mean Corpuscular Volume 102.2 fL (80-98); Mean Platelet Volume 10.2 fL (9.4-12.4); Monocytes Absolute Auto 0.4 X10*3/uL (0.1-1.2); Monocytes Percent Auto 10.2 % (2-11); Neutrophils Absolute Auto 2.6 X10*3/uL (2.0-8.3); Neutrophils Percent Auto 76.9 % (45-73); Red Blood Count 2.68 X10*6/uL (4.60-5.80); Red Cell Distribution Width 17.5 % (11.0-16.0); SCAN SMEAR FLAG 1; White Blood Count 3.4 X10*3/uL (4.8-10.8)
[2020-05-06 05:26] LABS: MANUAL DIFF FLAG NO; Platelet Count 88 X10*3/uL (160-400)
[2020-05-06 05:27] LABS: NRBC Pct Auto 3.5 /100WBC (0.0-0.2)
[2020-05-06 05:36] LABS: Base Excess VBG 7.7 mmol/L; HCO3 VBG 33 mmol/L; PCO2 VBG 55 mmHg; PO2 VBG 83 mmHg; pH VBG 7.39 (7.32-7.43)
[2020-05-06 06:03] LABS: Glucose, Whole Blood 99 mg/dL (60-115)
[2020-05-06 06:10] LABS: Anion Gap 15 (12-20); Blood Urea Nitrogen 60 mg/dL (9-16); C Reactive Protein 9.13 mg/dL (< or = 0.50); Calcium 6.2 mg/dL (8.4-10.2); Carbon Dioxide 25 mmol/L (22-29); Chloride 114 mmol/L (96-108); Estimated Glomerular Filt Rate 47; Glucose Random 88 mg/dL (60-115); Lactate Dehydrogenase 380 U/L (118-273); Magnesium 2.6 mg/dL (1.6-2.6); Phosphorus 3.2 mg/dL (2.7-4.5); Potassium 4.3 mmol/l (3.3-5.1)
[2020-05-06 06:12] LABS: D Dimer 4462 NG/ML
[2020-05-06 06:17] LABS: Sodium 150 mmol/L (135-145)
[2020-05-06 06:33] LABS: Ferritin 404 ng/mL (20-250)
[2020-05-06] MEDS: propofoL 1,000 MG/100 ML VIAL 44.16 MG IVCONT ×5 (07:09→15:08)
[2020-05-06] MEDS: Midazolam HCl/NS 50 MG/50 ML PLAST..BAG IVCONT ×2 (07:15→17:41)
[2020-05-06 07:30] LABS: Hematocrit 26.8 % (42-52); Hemoglobin 7.9 g/dl (14.0-18.0); Mean Corpuscular HGB Conc 29.5 g/dl (31.0-36.0); Mean Corpuscular Hemoglobin 30.6 pg (27.0-33.0); Mean Corpuscular Volume 103.9 fL (80-98); Mean Platelet Volume 9.9 fL (9.4-12.4); Red Blood Count 2.58 X10*6/uL (4.60-5.80); Red Cell Distribution Width 17.8 % (11.0-16.0); White Blood Count 3.5 X10*3/uL (4.8-10.8)
[2020-05-06 07:33] LABS: INTERNATIONAL NORM RATIO 1.4 (0.9-1.1); Prothrombin Time 17.1 SEC (10.8-13.0)
[2020-05-06 07:34] LABS: NRBC Pct Auto 2.9 /100WBC (0.0-0.2); Platelet Count 85 X10*3/uL (160-400)
[2020-05-06] MEDS: dexAMETHasone sod phosphate 4 MG/ML VIAL 6 MG IVPUSH (07:34)
[2020-05-06] MEDS: Chlorhexidine Gluc Oral Rinse 15 ML MOUTHWASH BUCCAL ×3 (07:34→20:16)
[2020-05-06] MEDS: Dextrose 5 % 1,000 ML 80 ML IVCONT ×2 (07:35→20:16)
[2020-05-06 07:36] LABS: PTT Heparin Drip 24.4 SEC (53-77.9)
[2020-05-06] MEDS: Heparin Sodium,Porcine/1/2NS 25,000 UNIT/250 ML IV.SOLN 10 UNIT IVCONT (07:36)
[2020-05-06 08:07] LABS: Glucose, Whole Blood 130 mg/dL (60-115)
[2020-05-06 10:03] LABS: Glucose, Whole Blood 188 mg/dL (60-115)
[2020-05-06] MEDS: Insulin Regular/NS 100 UNIT/100 ML PLAST..BAG 8 UNIT IVCONT (11:21)
[2020-05-06 11:57] LABS: Glucose, Whole Blood 217 mg/dL (60-115)
[2020-05-06 12:48] LABS: Anion Gap 13 (12-20); Blood Urea Nitrogen 53 mg/dL (9-16); Carbon Dioxide 24 mmol/L (22-29); Chloride 116 mmol/L (96-108); Creatinine Clr Calc Pharmacy 100.8; Estimated Glomerular Filt Rate 50; Glucose Random 200 mg/dL (60-115); Potassium 4.4 mmol/l (3.3-5.1); Sodium 149 mmol/L (135-145)
[2020-05-06 12:55] LABS: Calcium 5.6 mg/dL (8.4-10.2)
[2020-05-06 12:57] LABS: Glucose, Whole Blood 194 mg/dL (60-115)
[2020-05-06 13:29] LABS: Lipase 40 U/L (8-78)
--- NOTE | 2020-05-06 13:33 | P.PNCC_ITS ---
Subjective Subjective Date of Service: 05/06/20 Interval History: 49-year-old massively obese insulin-dependent type 2 diabetic with chronic cor pulmonale recently here and discharged after several days of Lasix drip for fluid overload and acute diastolic CHF and promptly readmitted with acute on on chronic hypercarbic and hypoxic respiratory failure this time from COVID-19 pneumonitis and ARDS but in addition he does have underlying obesity hypoventilation as well as obstructive sleep apnea etc. Intubated in the emergency room by me because he was on BiPAP D saturating and breathing at maximum ventilatory capacity intubated without difficulty very necrotic looking dark secretions which unfortunately was not sent or received by the laboratory but subsequent blood cultures grew 1/2 bottles of a corynebacterium and currently on meropenem and I will give 1 synergistic dose of Levaquin today and this because he did have temperatures peaking at 102.6 CVP measurements always elevated certainly in part from the level of PEEP on the ventilator but with marginal blood pressures I was loath to [facility] and his acute on chronic stage III renal failure was improving with with good diuresis on inotropics support as well as a negative intake and output balance so it appears that the extensive chest x-ray abnormality was not on the basis of volume overload Respiratory status has been stable on the ventilator and he was able to receive convalescent plasma he also required a red cell transfusion for hemoglobin of 7 and is on a low heparin protocol for a markedly elevated D-dimer My bedside echo showed a hyperdynamic left ventricle and clearly of a somewhat more dilated and dysfunctional right ventricle with no primary valve or pericardial disease Physical Exam Vital Signs: Vital Signs: Last Vital Signs Temp 102.6 F H 05/06/20 12:57 Pulse 86 05/06/20 12:57 Resp 19 05/06/20 12:57 BP 107/50 L 05/06/20 12:57 Pulse Ox 94 05/06/20 12:57 Body Mass Index 67.0 Const: Other: He can awaken if you decrease his sedation and because of his chronic opiate abuse history I have had to maintain fentanyl in addition to propofol and having been on maximum doses of both I need then to add Versed Current CVP has risen from its original levels now up to 20-21 but si multaneously sodium increased to 150 and he was in negative fluid balance Abdomen nondistended and a x-ray aches posing his diaphragms failed to show any free air Lungs with coarse bilateral ventilator sounds Skin seems intact Objective Data Labs CBC & Chem 7: 05/06/20 07:15 05/06/20 12:03 Labs: Laboratory Results - last 24 hr 05/03/20 05/04/20 05/05/20 17:22 05:45 14:05 WBC RBC Hgb Hct MCV MCH MCHC RDW Plt Count MPV Immature Gran % (Auto) Neut % (Auto) Lymph % (Auto) [place] % (Auto) Eos % (Auto) Baso % (Auto) Lymph # (Auto) [place] # (Auto) Eos # (Auto) Baso # (Auto) Abs Immat Gran (auto) Absolute Neuts (auto) Absolute Nucleated RBC Nucleated RBC % (auto) PT INR PTT (Heparin Protocol) D-Dimer VBG pH VBG pCO2 VBG pO2 VBG HCO3 VBG O2 Saturation VBG Base Excess Sodium Potassium Chloride Carbon Dioxide Anion Gap BUN Creatinine Estim Creat Clear Calc Estimated GFR POC Glucose 224 H Random Glucose Calcium Phosphorus Magnesium Ferritin Lactate Dehydrogenase Total Creatine Kinase C-Reactive Protein Lipase Procalcitonin [place] Progressive Test TNP Blood Type A Negative Antibody Screen NEGATIVE Crossmatch See Detail 05/05/20 05/05/20 05/05/20 14:50 16:19 17:00 WBC RBC Hgb Hct MCV MCH MCHC RDW Plt Count MPV Immature Gran % (Auto) Neut % (Auto) Lymph % (Auto) [place] % (Auto) Eos % (Auto) Baso % (Auto) Lymph # (Auto) [place] # (Auto) Eos # (Auto) Baso # (Auto) Abs Immat Gran (auto) Absolute Neuts (auto) Absolute Nucleated RBC Nucleated RBC % (auto) PT INR PTT (Heparin Protocol) D-Dimer VBG pH VBG pCO2 VBG pO2 VBG HCO3 VBG O2 Saturation VBG Base Excess Sodium Potassium Chloride Carbon Dioxide Anion Gap BUN Creatinine Estim Creat Clear Calc Estimated GFR POC Glucose 236 H 227 H 228 H Random Glucose Calcium Phosphorus Magnesium Ferritin Lactate Dehydrogenase Total Creatine Kinase C-Reactive Protein Lipase Procalcitonin [place] Progressive Test Blood Type Antibody Screen Crossmatch 05/05/20 05/05/20 05/05/20 18:00 19:19 19:58 WBC RBC Hgb Hct MCV MCH MCHC RDW Plt Count MPV Immature Gran % (Auto) Neut % (Auto) Lymph % (Auto) [place] % (Auto) Eos % (Auto) Baso % (Auto) Lymph # (Auto) [place] # (Auto) Eos # (Auto) Baso # (Auto) Abs Immat Gran (auto) Absolute Neuts (auto) Absolute Nucleated RBC Nucleated RBC % (auto) PT INR PTT (Heparin Protocol) D-Dimer VBG pH VBG pCO2 VBG pO2 VBG HCO3 VBG O2 Saturation VBG Base Excess Sodium Potassium Chloride Carbon Dioxide Anion Gap BUN Creatinine Estim Creat Clear Calc Estimated GFR POC Glucose 223 H 215 H 209 H Random Glucose Calcium Phosphorus Magnesium Ferritin Lactate Dehydrogenase Total Creatine Kinase C-Reactive Protein Lipase Procalcitonin [place] Progressive Test Blood Type Antibody Screen Crossmatch 05/05/20 05/05/20 05/06/20 20:53 22:14 00:15 WBC RBC Hgb Hct MCV MCH MCHC RDW Plt Count MPV Immature Gran % (Auto) Neut % (Auto) Lymph % (Auto) [place] % (Auto) Eos % (Auto) Baso % (Auto) Lymph # (Auto) [place] # (Auto) Eos # (Auto) Baso # (Auto) Abs Immat Gran (auto) Absolute Neuts (auto) Absolute Nucleated RBC Nucleated RBC % (auto) PT INR PTT (Heparin Protocol) D-Dimer VBG pH VBG pCO2 VBG pO2 VBG HCO3 VBG O2 Saturation VBG Base Excess Sodium Potassium Chloride Carbon Dioxide Anion Gap BUN Creatinine Estim Creat Clear Calc Estimated GFR POC Glucose 200 H 183 H 159 H Random Glucose Calcium Phosphorus Magnesium Ferritin Lactate Dehydrogenase Total Creatine Kinase C-Reactive Protein Lipase Procalcitonin [place] Progressive Test Blood Type Antibody Screen Crossmatch 05/06/20 05/06/20 05/06/20 02:08 03:05 05:00 WBC RBC Hgb Hct MCV MCH MCHC RDW Plt Count MPV Immature Gran % (Auto) Neut % (Auto) Lymph % (Auto) [place] % (Auto) Eos % (Auto) Baso % (Auto) Lymph # (Auto) [place] # (Auto) Eos # (Auto) Baso # (Auto) Abs Immat Gran (auto) Absolute Neuts (auto) Absolute Nucleated RBC Nucleated RBC % (auto) PT INR PTT (Heparin Protocol) D-Dimer VBG pH VBG pCO2 VBG pO2 VBG HCO3 VBG O2 Saturation VBG Base Excess Sodium Potassium Chloride Carbon Dioxide Anion Gap BUN Creatinine Estim Creat Clear Calc Estimated GFR POC Glucose 123 H 120 H 88 Random Glucose Calcium Phosphorus Magnesium Ferritin Lactate Dehydrogenase Total Creatine Kinase C-Reactive Protein Lipase Procalcitonin [place] Progressive Test Blood Type Antibody Screen Crossmatch 05/06/20 05/06/20 05/06/20 05:13 05:13 05:13 WBC 3.4 L RBC 2.68 L Hgb 8.1 L Hct 27.4 L MCV 102.2 H MCH 30.2 MCHC 29.6 L RDW 17.5 H Plt Count 88 L MPV 10.2 Immature Gran % (Auto) 1.8 H Neut % (Auto) 76.9 H Lymph % (Auto) 10.8 L [place] % (Auto) 10.2 Eos % (Auto) 0.3 Baso % (Auto) 0.0 Lymph # (Auto) 0.4 L [place] # (Auto) 0.4 Eos # (Auto) 0.0 Baso # (Auto) 0.0 Abs Immat Gran (auto) 0.06 H Absolute Neuts (auto) 2.6 Absolute Nucleated RBC 0.120 H Nucleated RBC % (auto) 3.5 H PT INR PTT (Heparin Protocol) D-Dimer VBG pH VBG pCO2 VBG pO2 VBG HCO3 VBG O2 Saturation VBG Base Excess Sodium 150 H Potassium 4.3 Chloride 114 H Carbon Dioxide 25 Anion Gap 15 BUN 60 H Creatinine 1.57 H Estim Creat Clear Calc 97.0 Estimated GFR 47 POC Glucose Random Glucose 88 Calcium 6.2 L Phosphorus 3.2 Magnesium 2.6 Ferritin 404 H Lactate Dehydrogenase 380 H Total Creatine Kinase 636 H D C-Reactive Protein 9.13 H Lipase Procalcitonin [place] Progressive Test Blood Type Antibody Screen Crossmatch 05/06/20 05/06/20 05/06/20 05:13 05:13 05:40 WBC RBC Hgb Hct MCV MCH MCHC RDW Plt Count MPV Immature Gran % (Auto) Neut % (Auto) Lymph % (Auto) [place] % (Auto) Eos % (Auto) Baso % (Auto) Lymph # (Auto) [place] # (Auto) Eos # (Auto) Baso # (Auto) Abs Immat Gran (auto) Absolute Neuts (auto) Absolute Nucleated RBC Nucleated RBC % (auto) PT INR PTT (Heparin Protocol) D-Dimer 4462 VBG pH 7.39 VBG pCO2 55 VBG pO2 83 VBG HCO3 33 VBG O2 Saturation 93.0 VBG Base Excess 7.7 Sodium Potassium Chloride Carbon Dioxide Anion Gap BUN Creatinine Estim Creat Clear Calc Estimated GFR POC Glucose Random Glucose Calcium Phosphorus Magnesium Ferritin Lactate Dehydrogenase Total Creatine Kinase C-Reactive Protein Lipase Procalcitonin 0.60 [place] Progressive Test Blood Type Antibody Screen Crossmatch 05/06/20 05/06/20 05/06/20 05:58 07:15 07:15 WBC 3.5 L RBC 2.58 L Hgb 7.9 L Hct 26.8 L MCV 103.9 H MCH 30.6 MCHC 29.5 L RDW 17.8 H Plt Count 85 L MPV 9.9 Immature Gran % (Auto) Neut % (Auto) Lymph % (Auto) [place] % (Auto) Eos % (Auto) Baso % (Auto) Lymph # (Auto) [place] # (Auto) Eos # (Auto) Baso # (Auto) Abs Immat Gran (auto) Absolute Neuts (auto) Absolute Nucleated RBC 0.100 H Nucleated RBC % (auto) 2.9 H PT 17.1 H INR 1.4 H PTT (Heparin Protocol) 24.4 L D-Dimer VBG pH VBG pCO2 VBG pO2 VBG HCO3 VBG O2 Saturation VBG Base Excess Sodium Potassium Chloride Carbon Dioxide Anion Gap BUN Creatinine Estim Creat Clear Calc Estimated GFR POC Glucose 99 Random Glucose Calcium Phosphorus Magnesium Ferritin Lactate Dehydrogenase Total Creatine Kinase C-Reactive Protein Lipase Procalcitonin [place] Progressive Test Blood Type Antibody Screen Crossmatch 05/06/20 05/06/20 05/06/20 07:52 09:57 11:50 WBC RBC Hgb Hct MCV MCH MCHC RDW Plt Count MPV Immature Gran % (Auto) Neut % (Auto) Lymph % (Auto) [place] % (Auto) Eos % (Auto) Baso % (Auto) Lymph # (Auto) [place] # (Auto) Eos # (Auto) Baso # (Auto) Abs Immat Gran (auto) Absolute Neuts (auto) Absolute Nucleated RBC Nucleated RBC % (auto) PT INR PTT (Heparin Protocol) D-Dimer VBG pH VBG pCO2 VBG pO2 VBG HCO3 VBG O2 Saturation VBG Base Excess Sodium Potassium Chloride Carbon Dioxide Anion Gap BUN Creatinine Estim Creat Clear Calc Estimated GFR POC Glucose 130 H 188 H 217 H Random Glucose Calcium Phosphorus Magnesium Ferritin Lactate Dehydrogenase Total Creatine Kinase C-Reactive Protein Lipase Procalcitonin [place] Progressive Test Blood Type Antibody Screen Crossmatch 05/06/20 05/06/20 12:03 12:51 WBC RBC Hgb Hct MCV MCH MCHC RDW Plt Count MPV Immature Gran % (Auto) Neut % (Auto) Lymph % (Auto) [place] % (Auto) Eos % (Auto) Baso % (Auto) Lymph # (Auto) [place] # (Auto) Eos # (Auto) Baso # (Auto) Abs Immat Gran (auto) Absolute Neuts (auto) Absolute Nucleated RBC Nucleated RBC % (auto) PT INR PTT (Heparin Protocol) D-Dimer VBG pH VBG pCO2 VBG pO2 VBG HCO3 VBG O2 Saturation VBG Base Excess Sodium 149 H Potassium 4.4 Chloride 116 H Carbon Dioxide 24 Anion Gap 13 BUN 53 H Creatinine 1.50 H Estim Creat Clear Calc 100.8 Estimated GFR 50 POC Glucose 194 H Random Glucose 200 H D Calcium 5.6 L* D Phosphorus Magnesium Ferritin Lactate Dehydrogenase Total Creatine Kinase C-Reactive Protein Lipase 40 Procalcitonin [place] Progressive Test Blood Type Antibody Screen Crossmatch Microbiology Microbiology Results: Microbiology 05/06/20 12:03 Sputum - Suctioned Gram Stain - Final 05/05/20 10:36 Blood - Venous Blood Culture - Preliminary No growth after 24 hours. 05/05/20 10:36 Blood - Venous Blood Culture - Preliminary No growth after 24 hours. 05/04/20 08:10 Sputum - Suctioned Gram Stain - Final 05/04/20 08:10 Sputum - Suctioned Sputum Culture - Final 05/03/20 16:12 Blood - Venous Blood Culture - Final Corynebacterium species 05/03/20 16:12 Blood - Venous Blood Culture - Preliminary No growth after 48 hours. 05/04/20 10:00 Urine Catheterized - Moser Catheter Urine Culture - Final No growth. Progress Note: A&P Assessment and plan (1) Gram negative sepsis: Problem details: Possible abdominal or sputum source Status: Acute (2) ARDS (adult respiratory distress syndrome): Status: Acute (3) Diabetic ketoacidosis: Status: Acute (4) Anemia: Status: Acute (5) Respiratory failure with hypoxia: Status: Acute (6) Respiratory failure requiring intubation: Status: Acute (7) Nephrotic syndrome: Problem details: Contributor to fluid retention; will need outpatient slow titration of JEANINE I to reduce proteinuria Status: Acute (8) Chronic kidney disease (CKD) stage G3b/A3, moderately decreased glomerular filtration rate (GFR) between 30-44 mL/min/1.73 square meter and albuminuria creatinine ratio greater than 300 mg/g: Problem details: Diabetic nephropathy with nephrotic range proteinuria Status: Acute (9) Obesity hypoventilation syndrome: Status: Acute (10) Opioid use disorder: Status: Acute (11) CHF (congestive heart failure): Status: Acute (12) JOSE (acute kidney injury): Status: Acute (13) Acute on chronic right heart failure: Status: Acute (14) JOSE (acute kidney injury): Problem details: His creat has risen largely due to the addition of JEANINE I. But would continue lisinopril to treat nephrotic proteinuria, diabetic kidney disease. Will need f/u labs in 1 week including K and creat Status: Acute (15) Tick bite of back: Status: Acute (16) Chronic pain: Status: Acute (17) New onset of congestive heart failure: Status: Acute (18) Dyspnea: Problem details: cont same meds; 20 min reviewing chart evaluating patient and documenting Status: Acute (19) Congestive heart failure: Status: Acute (20) Phantom limb pain: Problem details: I DEMONSTRATED HOW TO USE BELBUCA BY APPLYING A SAMPLE TO HIS RIGHT CHEEK Status: Acute (21) Diabetic neuropathy: Status: Acute (22) Morbid obesity: Status: Acute (23) Diabetes mellitus: Problem details: DM poorly controlled; remains hyperglycemic now and has a positive anion gap metabolic acidosis and today will receive 1 unit of convalescent plasma and will remain on an IV insulin drip as the acidosis now seems to have resolved and will follow CVP so as not to create a pulmonary edema situation superimposed Status: Acute (24) Pancytopenia: Status: Acute Assessment and Plan: So if she if truly septic with a diphtheroid it was certainly help to explain some of the severity features and the peak temperature of a 102.6? so I would continue the meropenem for now but further radiologic data is not forthcoming because of his size as he has already been refused for the ultrasound and CT scan But his FiO2 has been weaned from 100% to 45% in is on pressure control with stable minute ventilatory requirements and the hypernatremia currently being treated with D5W and 1st repeat sodium is 149 so I might just simply continue the drip until the sodium is less than 146 The other notable electrolyte abnormality is the hypocalcemia and of course we have no ionized calcium measurement some empirically giving him about 200 mg of elemental calcium Time Spent With Patient Time: Total time spent is greater than 50% in coordination of care (as documented) at patient's floor/unit and/or counseling patient: Total time spent with greater than 50% in coordination of care (as documented) at patient's floor/unit and/or counseling patient:: 45
[2020-05-06 13:58] LABS: Glucose, Whole Blood 207 mg/dL (60-115)
[2020-05-06] MEDS: Calcium Gluconate/NaCl,Iso-Osm 2 GM/100 ML PLAST..BAG IV (14:02)
[2020-05-06 14:21] LABS: PTT Heparin Drip 31.7 SEC (53-77.9)
--- NOTE | 2020-05-06 14:32 | PM.CCN ---
Critical Care Event Note Summary Code activated: No Narrative: This case had a high probability of a clinically significant, sudden, or life threatening deterioration of this patient's condition which required my full and direct attention, intervention and personal management. The patient is suddenly went into monomorphic V-tach with rate greater than 200 lasting for about 7 seconds and then spontaneously broke so we proceeded with the hanging of the calcium and I chose not to give the Levaquin because of its QT prolonging properties even though this was not torr side instead this was monomorphic and again between that and being on IV Levophed it raises concerns for an possible ischemic manifestation Critical Care Time (minutes): 5
[2020-05-06] MEDS: Heparin Sodium,Porcine 5,000 UNIT/ML VIAL 10000 UNIT IVPUSH (14:46)
[2020-05-06 14:57] LABS: Glucose, Whole Blood 202 mg/dL (60-115)
[2020-05-06] MEDS: Azithromycin 500 MG in 0.9 % Sodium Chloride 250 ML 125 MG IV (16:53)
[2020-05-06] MEDS: fentaNYL citrate/NS 1,000 MCG/100 ML PLAST..BAG 20 MCG IVCONT (16:54)
[2020-05-06 17:11] LABS: Glucose, Whole Blood 197 mg/dL (60-115)
[2020-05-06 17:37] LABS: Glucose, Whole Blood 190 mg/dL (60-115)
[2020-05-06] MEDS: vancomycin HCL Oral Solution 125 MG/5 ML SOLN.RECON 500 MG PO ×2 (18:06→23:11)
[2020-05-06] MEDS: propofoL 1,000 MG/100 ML VIAL 38.64 MG IVCONT ×3 (18:06→23:10)
--- NOTE | 2020-05-06 18:18 | PC.NURSE ---
S/E Temp 103.1 - MD aware - urine, blood, and sputum cultures obtained Meropenum discontinued, Zithromax & Vanco started Brief sedation vacation - patient opened eyes, shook head yes & no when asked questions Re-sedated on propofol, fentanyl, and versed Pupils 3-4mm, sluggish NA 150 - started on D5W @ 80cc/hr - 1200 NA 149 SR, HR 80's - 28 beat non-sustained VTach at 1403 - MD aware 1200 calcium 5.6 - calcium gluconate 2g IV administered DD 44 - started on Heparin gtt - currently at 8.95u/kg/hr - next PTTHD 2044 Levophed gtt titrated off - BP stable CVP 17-19 LS dim throughout, thick brown inline secretions Vent settings PC 30, rate 18, PEEP 8, 50% CXR completed No BM Maintaining on insulin gtt - no tube feeds per md Urine output 125cc/hr - cloudy dark yellow Stg II coccyx w/ blisters - repo q2hr, barrier cream, bathed Family updated
[2020-05-06 19:02] LABS: Glucose, Whole Blood 179 mg/dL (60-115)
--- NOTE | 2020-05-06 20:00 | PC.RT ---
upon arrival pt resting tolerating vent settings well, stable vitals , pt is warm temp of 103.3 at this time, sx scant amount cream colored. no changes made at this time
[2020-05-06] MEDS: Insulin Regular/NS 100 UNIT/100 ML PLAST..BAG 10 UNIT IVCONT (20:16)
[2020-05-06 20:44] LABS: Anion Gap 12 (12-20); Blood Urea Nitrogen 53 mg/dL (9-16); Calcium 6.3 mg/dL (8.4-10.2); Carbon Dioxide 27 mmol/L (22-29); Chloride 116 mmol/L (96-108); Creatinine Clr Calc Pharmacy 96.9; Estimated Glomerular Filt Rate 47; Glucose Random 175 mg/dL (60-115); Magnesium 2.7 mg/dL (1.6-2.6); Phosphorus 2.9 mg/dL (2.7-4.5); Potassium 4.6 mmol/l (3.3-5.1); Sodium 150 mmol/L (135-145)
[2020-05-06 21:02] LABS: PTT Heparin Drip 50.9 SEC (53-77.9)
[2020-05-06 21:19] LABS: Glucose, Whole Blood 142 mg/dL (60-115)
[2020-05-06] MEDS: Heparin Sodium,Porcine 5,000 UNIT/ML VIAL 8100 UNIT IVPUSH (21:59)
[2020-05-06] MEDS: Heparin Sodium,Porcine/1/2NS 25,000 UNIT/250 ML IV.SOLN 18.08 UNIT IVCONT (22:01)
[2020-05-06 22:37] LABS: Glucose, Whole Blood 144 mg/dL (60-115)
[2020-05-07] VITALS (29 sets, daily range): BP systolic 95–146; BP diastolic 38–63; PULSE 72–93; RESP 18–26; TEMP 38.6–39.8; O2SAT 88–95; BMI 68.0
[2020-05-07] MEDS: propofoL 1,000 MG/100 ML VIAL 38.64 MG IVCONT ×2 (01:07→10:24)
[2020-05-07 01:22] LABS: Glucose, Whole Blood 122 mg/dL (60-115)
--- NOTE | 2020-05-07 02:57 | PC.NURSE ---
Tmax 103.5. Cooled with ice packs and cooling blanket on top of patient. Now 101.5 Sedation titrated down as tolerated. SR 80's with multifocal PVC's and several unsustained bursts of PAT. Heparin gtt & insulin gtt per protocol. UOP 50-100 cc/hr concentrated. No BM. Diffuse fungal rash with macerated buttocks/coccyx. Blisters to buttocks with some open areas. Airloss bed, prevalon system, repo Q2H, barrier cream. Full bath.
[2020-05-07 03:06] LABS: Glucose, Whole Blood 123 mg/dL (60-115)
[2020-05-07 04:17] LABS: Base Excess VBG 9.1 mmol/L; Eosinophils Percent Auto 0.9 % (0-4); HCO3 VBG 36 mmol/L; Hematocrit 28.5 % (42-52); Hemoglobin 8.1 g/dl (14.0-18.0); Imm Gran Abs Auto 0.06 X10*3/uL (0.00-0.03); Imm Gran Pct Auto 1.7 % (0.0-0.4); Lymphocytes Absolute Auto 0.5 X10*3/uL (1.2-4.9); Lymphocytes Percent Auto 13.9 % (20-40); MANUAL DIFF FLAG SCAN; Mean Corpuscular HGB Conc 28.4 g/dl (31.0-36.0); Mean Corpuscular Hemoglobin 30.8 pg (27.0-33.0); Mean Corpuscular Volume 108.4 fL (80-98); Mean Platelet Volume 10.4 fL (9.4-12.4); Monocytes Absolute Auto 0.4 X10*3/uL (0.1-1.2); Monocytes Percent Auto 10.1 % (2-11); Neutrophils Absolute Auto 2.5 X10*3/uL (2.0-8.3); Neutrophils Percent Auto 73.4 % (45-73); PCO2 VBG 71 mmHg; PO2 VBG 81 mmHg; Red Blood Count 2.63 X10*6/uL (4.60-5.80); Red Cell Distribution Width 17.7 % (11.0-16.0); SCAN SMEAR FLAG 1; White Blood Count 3.5 X10*3/uL (4.8-10.8); pH VBG 7.31 (7.32-7.43)
[2020-05-07 04:18] LABS: NRBC Pct Auto 2.3 /100WBC (0.0-0.2); Platelet Count 75 X10*3/uL (160-400)
[2020-05-07 04:20] LABS: SLIDE REVIEW VERIFIED
[2020-05-07 04:26] LABS: INTERNATIONAL NORM RATIO 1.4 (0.9-1.1); Prothrombin Time 17.1 SEC (10.8-13.0)
[2020-05-07 04:29] LABS: PTT Heparin Drip 71.6 SEC (53-77.9)
[2020-05-07 04:40] LABS: D Dimer 3184 NG/ML
[2020-05-07] MEDS: propofoL 1,000 MG/100 ML VIAL 33.12 MG IVCONT ×2 (04:44→07:30)
[2020-05-07] MEDS: vancomycin HCL Oral Solution 125 MG/5 ML SOLN.RECON 500 MG PO (04:44)
[2020-05-07 05:02] LABS: Anion Gap 15 (12-20); Blood Urea Nitrogen 51 mg/dL (9-16); C Reactive Protein 9.35 mg/dL (< or = 0.50); Calcium 6.4 mg/dL (8.4-10.2); Carbon Dioxide 26 mmol/L (22-29); Chloride 116 mmol/L (96-108); Creatinine Clr Calc Pharmacy 101.5; Estimated Glomerular Filt Rate 50; Glucose Random 128 mg/dL (60-115); Lactate Dehydrogenase 438 U/L (118-273); Magnesium 2.6 mg/dL (1.6-2.6); Phosphorus 3.9 mg/dL (2.7-4.5); Potassium 4.5 mmol/l (3.3-5.1); Sodium 152 mmol/L (135-145)
[2020-05-07 05:16] LABS: Glucose, Whole Blood 129 mg/dL (60-115)
[2020-05-07 05:28] LABS: Ferritin 302 ng/mL (20-250); Procalcitonin 0.39 ng/mL
[2020-05-07] MEDS: fentaNYL citrate/NS 1,000 MCG/100 ML PLAST..BAG 20 MCG IVCONT ×4 (06:39→21:29)
[2020-05-07 07:02] LABS: Glucose, Whole Blood 127 mg/dL (60-115)
[2020-05-07] MEDS: Dextrose 5 % 1,000 ML 80 ML IVCONT (07:30)
[2020-05-07] MEDS: dexAMETHasone sod phosphate 4 MG/ML VIAL 6 MG IVPUSH (07:30)
[2020-05-07] MEDS: Chlorhexidine Gluc Oral Rinse 15 ML MOUTHWASH BUCCAL ×3 (07:30→19:22)
[2020-05-07 08:55] LABS: Glucose, Whole Blood 154 mg/dL (60-115)
[2020-05-07] MEDS: Albumin Human 25 % 100 ML IV ×2 (10:35→16:17)
[2020-05-07] MEDS: Calcium Gluconate/NaCl,Iso-Osm 2 GM/100 ML PLAST..BAG IV (10:36)
[2020-05-07] MEDS: Insulin Glargine,Hum.rec.anlog 100 UNIT/ML 10 ML VIAL 40 UNIT SUBCUT (10:40)
[2020-05-07] MEDS: Lactulose 20 GM/30 ML SOLUTION 30 GM PO (10:41)
[2020-05-07] MEDS: Heparin Sodium,Porcine 5,000 UNIT/ML VIAL 5000 UNIT SUBCUT ×2 (10:42→19:22)
--- NOTE | 2020-05-07 11:03 | MHC.CLN ---
RE: CONSULT SEE CLINICAL NUTRITION ASSESSMENT PT RECEIVING PROMOTE AT 10CC/HR WITH 300CC Q 6 HRS TO PROVIDE 240KCALS (1260KCALS WITH SEDATION), 15G PROTEIN, 1401CC FREE WATER FROM FORMULA AND FLUSHES WILL ADD JONI TO PROMOTE WOUND HEALING [ End ]
[2020-05-07] MEDS: propofoL 1,000 MG/100 ML VIAL 55.2 MG IVCONT ×6 (11:59→21:28)
[2020-05-07 12:07] LABS: Glucose, Whole Blood 227 mg/dL (60-115)
[2020-05-07] MEDS: Furosemide 40 MG/4 ML VIAL IVPUSH ×2 (12:32→17:22)
--- NOTE | 2020-05-07 14:05 | MHC.CM.PN ---
Pt is intubated in ICU with COVID and unable to participate in CM discussion Call placed to pt's HCP, Sydney who states pt has home care through [employer] for [employer]. Sydney also assists shopping and errands. Pt has a hospital bed, walker, electric w/c and all the adaptive equipment needed for him to be cared for at home. Pt had been at [facility] for close to 6 months and expressed to Tiny that he would never return to a SNF The goals of care would be to return to home with likely [facility] and existing [employer] services. He will need transportation Discussed pt's barriers and risk factors to recovery and eventual transfer to home. Tiny verbalized understanding and will be amenable to changes of d/c plans if needed. CM to follow
--- NOTE | 2020-05-07 14:34 | PM.CCPN ---
Subjective Subjective Date of Service: 05/07/20 Interval History: 49-year-old gentleman with underlying super morbid obesity, right BKA, diabetes mellitus, right-sided heart failure admitted on 05/03/2020 with acute hypoxic respiratory failure secondary to COVID-19 ARDS (on the background of chronic hypercapnic respiratory failure secondary to underlying obesity hyperventilation syndrome) requiring intubation and ventilatory support. No events overnight. Physical Exam Vital Signs: Vital Signs: Last Vital Signs Temp 102.2 F H 05/07/20 14:00 Pulse 84 05/07/20 14:00 Resp 22 H 05/07/20 14:00 BP 123/48 L 05/07/20 14:00 Pulse Ox 94 05/07/20 14:00 Body Mass Index 68.0 Const: General: no acute distress and other (Sedated on the vent, wakes up with sedation vacation) Nutritional Appearance: obese Eyes: Sclerae: sclerae normal EOM: EOMs intact bilaterally Neck: Neck: Yes no lymphadenopathy, Yes trachea midline and Yes supple Resp: Auscultation: crackles (Diffuse bilateral) Cardio: Rate: regular rate Rhythm: regular rhythm Heart sounds: no gallops, no murmurs and no rubs GI: Palpation (GI): Soft to palpation and Other GI palpation findings present ( Nontender) Auscultation: normal bowel sounds Extrem: General: No clubbing, No cyanosis, Yes edema (2+ left-sided) and Yes other (Right BKA) Objective Data Labs CBC & Chem 7: 05/07/20 04:05 05/07/20 04:05 Labs: Laboratory Results - last 24 hr 05/06/20 05/06/20 05/06/20 14:54 16:19 17:12 WBC RBC Hgb Hct MCV MCH MCHC RDW Plt Count MPV Immature Gran % (Auto) Neut % (Auto) Lymph % (Auto) [place] % (Auto) Eos % (Auto) Baso % (Auto) Lymph # (Auto) [place] # (Auto) Eos # (Auto) Baso # (Auto) Abs Immat Gran (auto) Absolute Neuts (auto) Absolute Nucleated RBC Nucleated RBC % (auto) Smear Tech's Comments PT INR PTT (Heparin Protocol) D-Dimer VBG pH VBG pCO2 VBG pO2 VBG HCO3 VBG O2 Saturation VBG Base Excess Sodium Potassium Chloride Carbon Dioxide Anion Gap BUN Creatinine Estim Creat Clear Calc Estimated GFR POC Glucose 202 H 197 H 190 H Random Glucose Calcium Phosphorus Magnesium Ferritin Lactate Dehydrogenase Total Creatine Kinase C-Reactive Protein Procalcitonin C. difficile Toxin A&B C. difficile Antigen C. difficile Interpret 05/06/20 05/06/20 05/06/20 18:54 19:30 20:47 WBC RBC Hgb Hct MCV MCH MCHC RDW Plt Count MPV Immature Gran % (Auto) Neut % (Auto) Lymph % (Auto) [place] % (Auto) Eos % (Auto) Baso % (Auto) Lymph # (Auto) [place] # (Auto) Eos # (Auto) Baso # (Auto) Abs Immat Gran (auto) Absolute Neuts (auto) Absolute Nucleated RBC Nucleated RBC % (auto) Smear Tech's Comments PT INR PTT (Heparin Protocol) 50.9 L D D-Dimer VBG pH VBG pCO2 VBG pO2 VBG HCO3 VBG O2 Saturation VBG Base Excess Sodium 150 H Potassium 4.6 Chloride 116 H Carbon Dioxide 27 Anion Gap 12 BUN 53 H Creatinine 1.56 H Estim Creat Clear Calc 96.9 Estimated GFR 47 POC Glucose 179 H Random Glucose 175 H Calcium 6.3 L D Phosphorus 2.9 Magnesium 2.7 H Ferritin Lactate Dehydrogenase Total Creatine Kinase C-Reactive Protein Procalcitonin C. difficile Toxin A&B C. difficile Antigen C. difficile Interpret 05/06/20 05/06/20 05/07/20 21:07 22:30 01:10 WBC RBC Hgb Hct MCV MCH MCHC RDW Plt Count MPV Immature Gran % (Auto) Neut % (Auto) Lymph % (Auto) [place] % (Auto) Eos % (Auto) Baso % (Auto) Lymph # (Auto) [place] # (Auto) Eos # (Auto) Baso # (Auto) Abs Immat Gran (auto) Absolute Neuts (auto) Absolute Nucleated RBC Nucleated RBC % (auto) Smear Tech's Comments PT INR PTT (Heparin Protocol) D-Dimer VBG pH VBG pCO2 VBG pO2 VBG HCO3 VBG O2 Saturation VBG Base Excess Sodium Potassium Chloride Carbon Dioxide Anion Gap BUN Creatinine Estim Creat Clear Calc Estimated GFR POC Glucose 142 H 144 H 122 H Random Glucose Calcium Phosphorus Magnesium Ferritin Lactate Dehydrogenase Total Creatine Kinase C-Reactive Protein Procalcitonin C. difficile Toxin A&B C. difficile Antigen C. difficile Interpret 05/07/20 05/07/20 05/07/20 03:00 04:05 04:05 WBC RBC Hgb Hct MCV MCH MCHC RDW Plt Count MPV Immature Gran % (Auto) Neut % (Auto) Lymph % (Auto) [place] % (Auto) Eos % (Auto) Baso % (Auto) Lymph # (Auto) [place] # (Auto) Eos # (Auto) Baso # (Auto) Abs Immat Gran (auto) Absolute Neuts (auto) Absolute Nucleated RBC Nucleated RBC % (auto) Smear Tech's Comments PT 17.1 H INR 1.4 H PTT (Heparin Protocol) 71.6 D D-Dimer 3184 VBG pH VBG pCO2 VBG pO2 VBG HCO3 VBG O2 Saturation VBG Base Excess Sodium 152 H Potassium 4.5 Chloride 116 H Carbon Dioxide 26 Anion Gap 15 BUN 51 H Creatinine 1.49 H Estim Creat Clear Calc 101.5 Estimated GFR 50 POC Glucose 123 H Random Glucose 128 H Calcium 6.4 L Phosphorus 3.9 Magnesium 2.6 Ferritin 302 H Lactate Dehydrogenase 438 H Total Creatine Kinase C-Reactive Protein 9.35 H Procalcitonin C. difficile Toxin A&B C. difficile Antigen C. difficile Interpret 05/07/20 05/07/20 05/07/20 04:05 04:05 04:05 WBC 3.5 L RBC 2.63 L Hgb 8.1 L Hct 28.5 L MCV 108.4 H MCH 30.8 MCHC 28.4 L RDW 17.7 H Plt Count 75 L MPV 10.4 Immature Gran % (Auto) 1.7 H Neut % (Auto) 73.4 H Lymph % (Auto) 13.9 L [place] % (Auto) 10.1 Eos % (Auto) 0.9 Baso % (Auto) 0.0 Lymph # (Auto) 0.5 L [place] # (Auto) 0.4 Eos # (Auto) 0.0 Baso # (Auto) 0.0 Abs Immat Gran (auto) 0.06 H Absolute Neuts (auto) 2.5 Absolute Nucleated RBC 0.080 H Nucleated RBC % (auto) 2.3 H Smear Tech's Comments VERIFIED PT Cancelled INR Cancelled PTT (Heparin Protocol) D-Dimer Cancelled VBG pH VBG pCO2 VBG pO2 VBG HCO3 VBG O2 Saturation VBG Base Excess Sodium Potassium Chloride Carbon Dioxide Anion Gap BUN Creatinine Estim Creat Clear Calc Estimated GFR POC Glucose Random Glucose Calcium Phosphorus Magnesium Ferritin Lactate Dehydrogenase Total Creatine Kinase 1097 H D C-Reactive Protein Procalcitonin C. difficile Toxin A&B C. difficile Antigen C. difficile Interpret 05/07/20 05/07/20 05/07/20 04:05 04:05 05:10 WBC RBC Hgb Hct MCV MCH MCHC RDW Plt Count MPV Immature Gran % (Auto) Neut % (Auto) Lymph % (Auto) [place] % (Auto) Eos % (Auto) Baso % (Auto) Lymph # (Auto) [place] # (Auto) Eos # (Auto) Baso # (Auto) Abs Immat Gran (auto) Absolute Neuts (auto) Absolute Nucleated RBC Nucleated RBC % (auto) Smear Tech's Comments PT INR PTT (Heparin Protocol) D-Dimer VBG pH 7.31 L VBG pCO2 71 VBG pO2 81 VBG HCO3 36 VBG O2 Saturation 92.0 VBG Base Excess 9.1 Sodium Potassium Chloride Carbon Dioxide Anion Gap BUN Creatinine Estim Creat Clear Calc Estimated GFR POC Glucose 129 H Random Glucose Calcium Phosphorus Magnesium Ferritin Lactate Dehydrogenase Total Creatine Kinase C-Reactive Protein Procalcitonin 0.39 C. difficile Toxin A&B C. difficile Antigen C. difficile Interpret 05/07/20 05/07/20 05/07/20 06:54 08:50 12:01 WBC RBC Hgb Hct MCV MCH MCHC RDW Plt Count MPV Immature Gran % (Auto) Neut % (Auto) Lymph % (Auto) [place] % (Auto) Eos % (Auto) Baso % (Auto) Lymph # (Auto) [place] # (Auto) Eos # (Auto) Baso # (Auto) Abs Immat Gran (auto) Absolute Neuts (auto) Absolute Nucleated RBC Nucleated RBC % (auto) Smear Tech's Comments PT INR PTT (Heparin Protocol) D-Dimer VBG pH VBG pCO2 VBG pO2 VBG HCO3 VBG O2 Saturation VBG Base Excess Sodium Potassium Chloride Carbon Dioxide Anion Gap BUN Creatinine Estim Creat Clear Calc Estimated GFR POC Glucose 127 H 154 H 227 H Random Glucose Calcium Phosphorus Magnesium Ferritin Lactate Dehydrogenase Total Creatine Kinase C-Reactive Protein Procalcitonin C. difficile Toxin A&B C. difficile Antigen C. difficile Interpret 05/07/20 12:45 WBC RBC Hgb Hct MCV MCH MCHC RDW Plt Count MPV Immature Gran % (Auto) Neut % (Auto) Lymph % (Auto) [place] % (Auto) Eos % (Auto) Baso % (Auto) Lymph # (Auto) [place] # (Auto) Eos # (Auto) Baso # (Auto) Abs Immat Gran (auto) Absolute Neuts (auto) Absolute Nucleated RBC Nucleated RBC % (auto) Smear Tech's Comments PT INR PTT (Heparin Protocol) D-Dimer VBG pH VBG pCO2 VBG pO2 VBG HCO3 VBG O2 Saturation VBG Base Excess Sodium Potassium Chloride Carbon Dioxide Anion Gap BUN Creatinine Estim Creat Clear Calc Estimated GFR POC Glucose Random Glucose Calcium Phosphorus Magnesium Ferritin Lactate Dehydrogenase Total Creatine Kinase C-Reactive Protein Procalcitonin C. difficile Toxin A&B TNP C. difficile Antigen TNP C. difficile Interpret TNP Microbiology Microbiology Results: Microbiology 05/05/20 10:36 Blood - Venous Blood Culture - Preliminary No growth after 48 hours. 05/05/20 10:36 Blood - Venous Blood Culture - Preliminary No growth after 48 hours. 05/06/20 16:37 Urine Catheterized - Moser Catheter Urine Culture - Preliminary No growth to date. 05/06/20 12:03 Sputum - Suctioned Gram Stain - Final 05/06/20 12:03 Sputum - Suctioned Sputum Culture - Preliminary Gram negative hipolito 05/04/20 08:10 Sputum - Suctioned Gram Stain - Final 05/04/20 08:10 Sputum - Suctioned Sputum Culture - Final 05/03/20 16:12 Blood - Venous Blood Culture - Final Corynebacterium species 05/03/20 16:12 Blood - Venous Blood Culture - Preliminary No growth after 48 hours. 05/04/20 10:00 Urine Catheterized - Moser Catheter Urine Culture - Final No growth. Progress Note: A&P Assessment and plan (1) COVID-19: Status: Acute Assessment and Plan: Assessment: 49-year-old gentleman with underlying morbid obesity, chronic right-sided congestive heart failure, diabetes mellitus admitted with acute hypoxic respiratory failure secondary to COVID-19 ARDS further complicated by acute renal failure and exacerbation of underlying chronic right-sided congestive heart failure Plan: Neuro: No acute issues. Cardiac: Acute on chronic right-sided congestive heart failure. Continue with diuresis. Pulmonary: Acute hypoxic respiratory failure secondary to COVID-19 ARDS. Continue to titrate off ventilatory support as tolerated. Underlying chronic hypercapnic respiratory failure secondary to obstructive sleep apnea and obesity hyperventilation support requiring BiPAP support at night. Renal: Acute renal failure on the background of chronic renal disease secondary to COVID-19, improving. Non oliguric. Continue to monitor renal indices and urine output. Endo: No acute issues. Underlying diabetes mellitus. GI: No acute issues. ID: COVID 19, continue dexamethasone for total of 10 days. No evidence of bacterial infection, taken off antibiotics. Heme/Onc: No acute issues. Psych: No acute issues. Miscellaneous: No acute issues. Prophylaxis: Heparin, ppi Diet: Tube feeds Critical care time spent: 60 minutes (2) Diabetes mellitus: Status: Acute (3) Morbid obesity: Status: Acute (4) JOSE (acute kidney injury): Status: Acute (5) Acute on chronic right heart failure: Status: Acute (6) Obesity hypoventilation syndrome: Status: Acute (7) Respiratory failure with hypoxia: Status: Acute (8) ARDS (adult respiratory distress syndrome): Status: Acute Time Spent With Patient Total time spent with greater than 50% in coordination of care (as documented) at patient's floor/unit and/or counseling patient:: 0 Critical Care Time Critical Care Time (minutes): 60
--- NOTE | 2020-05-07 15:11 | PC.NURSE ---
Pt intubated and sedated, occasionally breathes over vent and coughs. Versed drip D/C today, Fentanyl running at 200mcg/hr, Propofol at 50mcg/kg/min. Vent settings, pressure control I pressure 30, rate 22, FiO2 40%, tv 600, min vol 13L/min, PEEP 8, SaO2 91%. Suctioned for thick white inline secretions, small-mod oral suctioning. Cooling blanket remains on T down to 101.3. NSR 80s, BP stable, diastolic slightly low. Lactulose given, positive stool return, sample sent for C diff. Started on promote 10ml/hr, 300ml free water flushes q6hr. 40mg IVP Lasix given, Albumin given. Stage 2 pressure injury to buttocks, wound consult came to see, barrier cream applied. Fluids d/c, insulin drip d/c, heparin drip d/c at 1030, 40 Lantus given. Bed locked and in lowest position. Restraints renewed.
--- NOTE | 2020-05-07 17:03 | P.CONIM_ITS ---
History of Present Illness Data of Consult Service Date: 05/07/20 Requesting physician: Sharlene Bryson Primary Care Provider: Unknown Physician HPI Reason for consult: blistering of buttocks 49-year-old male admitted from April 06 the April 21 for renal failure. Returned after testing positive for COVID on May 01, currently admitted with the ARDS, respiratory failure and intubated, Gram-negative sepsis and pancytopenia. [facility] Medical History (Updated 05/07/20 @ 17:09 by JEFFREY Renner) CHF (congestive heart failure) Chronic pain Congestive heart failure Diabetic neuropathy Dyspnea Gram negative sepsis Hypertension Morbid obesity New onset of congestive heart failure Obesity hypoventilation syndrome Opioid use disorder Phantom limb pain Respiratory failure requiring intubation Tick bite of back Family History Father No problems noted. Mother No problems noted. Family history: reviewed and not pertinent Surgical History History of right lower limb amputation Hx of cholecystectomy Social History Household Members: Unknown / Unable to assess Housing: Unknown / Unable to assess Alcohol intake: never Smoking Status: Former smoker Tobacco Type: Cigarette Packs Per Day: 3 Cigarettes Per Day: 60.0 Years Smoked: 25 Substance Use Type: Opiates service: No Current occupational status: unemployed Meds Allergies Allergy/AdvReac Type Severity Reaction Status Date / Time penicillin V Allergy Unknown hives Verified 05/02/20 12:48 Home Medications Medication Instructions Recorded Confirmed Type acetaminophen 500 mg tablet 1,000 mg PO Q8-10H PRN 01/18/20 05/03/20 History aspirin 81 mg tablet,delayed 81 mg PO DAILY 01/18/20 05/03/20 History release calcium carbonate 500 mg calcium 500 mg PO DAILY 01/18/20 05/03/20 History (1,250 mg) tablet clonidine HCl 0.1 mg tablet 0.1 mg PO BID 01/18/20 05/03/20 History cyclobenzaprine 5 mg tablet 5 mg PO TID PRN 01/18/20 05/03/20 History ferrous sulfate 325 mg (65 mg 325 mg PO DAILY 01/18/20 05/03/20 History iron) tablet fluticasone propionate 50 1 spray INTRANASAL BID 01/18/20 05/03/20 History mcg/actuation nasal spray,suspension melatonin 3 mg capsule 6 mg PO BEDTIME PRN 01/18/20 05/03/20 History omeprazole 20 mg capsule,delayed 20 mg PO BID 01/18/20 05/03/20 History release pravastatin 10 mg tablet 10 mg PO BEDTIME 01/18/20 05/03/20 History topiramate 100 mg tablet 100 mg PO BEDTIME 01/18/20 05/03/20 History trazodone 50 mg tablet 50 mg PO BEDTIME PRN 01/18/20 05/03/20 History facial-body wipes #384 ea 02/20/20 05/02/20 History levothyroxine 37.5 mcg PO DAILY 04/06/20 05/03/20 History loperamide 2 mg PO Q4H PRN 05/03/20 05/03/20 History Physical Exam Vital Signs and Narrative: Vital Signs: Last Vital Signs Temp 102.7 F H 05/07/20 16:00 Pulse 89 05/07/20 16:00 Resp 22 H 05/07/20 16:00 BP 131/50 L 05/07/20 16:00 Pulse Ox 88 L 05/07/20 16:00 Body Mass Index 68.0 What we are seeing in the deep gluteal fold is purple discoloration and blistering consistent with cutaneous manifestation of COVID-19. The periwound is Alexus herbal. There does not appear to be a pressure component with this as it is not over a bony prominence. 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 Results Labs CBC and Chem 7: 05/07/20 04:05 05/07/20 04:05 Labs: Laboratory Results - last 24 hr 05/06/20 05/06/20 05/06/20 16:19 17:12 18:54 MCV MCH MCHC RDW Plt Count MPV Immature Gran % (Auto) Neut % (Auto) Lymph % (Auto) [place] % (Auto) Eos % (Auto) Baso % (Auto) Lymph # (Auto) [place] # (Auto) Eos # (Auto) Baso # (Auto) Abs Immat Gran (auto) Absolute Neuts (auto) Absolute Nucleated RBC Nucleated RBC % (auto) Smear Tech's Comments PT INR PTT (Heparin Protocol) D-Dimer VBG pH VBG pCO2 VBG pO2 VBG HCO3 VBG O2 Saturation VBG Base Excess Anion Gap Estim Creat Clear Calc Estimated GFR POC Glucose 197 H 190 H 179 H Random Glucose Calcium Phosphorus Magnesium Ferritin Lactate Dehydrogenase Total Creatine Kinase C-Reactive Protein Procalcitonin C. difficile Toxin A&B C. difficile Antigen C. difficile Interpret 05/06/20 05/06/20 05/06/20 19:30 20:47 21:07 MCV MCH MCHC RDW Plt Count MPV Immature Gran % (Auto) Neut % (Auto) Lymph % (Auto) [place] % (Auto) Eos % (Auto) Baso % (Auto) Lymph # (Auto) [place] # (Auto) Eos # (Auto) Baso # (Auto) Abs Immat Gran (auto) Absolute Neuts (auto) Absolute Nucleated RBC Nucleated RBC % (auto) Smear Tech's Comments PT INR PTT (Heparin Protocol) 50.9 L D D-Dimer VBG pH VBG pCO2 VBG pO2 VBG HCO3 VBG O2 Saturation VBG Base Excess Anion Gap 12 Estim Creat Clear Calc 96.9 Estimated GFR 47 POC Glucose 142 H Random Glucose 175 H Calcium 6.3 L D Phosphorus 2.9 Magnesium 2.7 H Ferritin Lactate Dehydrogenase Total Creatine Kinase C-Reactive Protein Procalcitonin C. difficile Toxin A&B C. difficile Antigen C. difficile Interpret 05/06/20 05/07/20 05/07/20 22:30 01:10 03:00 MCV MCH MCHC RDW Plt Count MPV Immature Gran % (Auto) Neut % (Auto) Lymph % (Auto) [place] % (Auto) Eos % (Auto) Baso % (Auto) Lymph # (Auto) [place] # (Auto) Eos # (Auto) Baso # (Auto) Abs Immat Gran (auto) Absolute Neuts (auto) Absolute Nucleated RBC Nucleated RBC % (auto) Smear Tech's Comments PT INR PTT (Heparin Protocol) D-Dimer VBG pH VBG pCO2 VBG pO2 VBG HCO3 VBG O2 Saturation VBG Base Excess Anion Gap Estim Creat Clear Calc Estimated GFR POC Glucose 144 H 122 H 123 H Random Glucose Calcium Phosphorus Magnesium Ferritin Lactate Dehydrogenase Total Creatine Kinase C-Reactive Protein Procalcitonin C. difficile Toxin A&B C. difficile Antigen C. difficile Interpret 05/07/20 05/07/20 05/07/20 04:05 04:05 04:05 MCV 108.4 H MCH 30.8 MCHC 28.4 L RDW 17.7 H Plt Count 75 L MPV 10.4 Immature Gran % (Auto) 1.7 H Neut % (Auto) 73.4 H Lymph % (Auto) 13.9 L [place] % (Auto) 10.1 Eos % (Auto) 0.9 Baso % (Auto) 0.0 Lymph # (Auto) 0.5 L [place] # (Auto) 0.4 Eos # (Auto) 0.0 Baso # (Auto) 0.0 Abs Immat Gran (auto) 0.06 H Absolute Neuts (auto) 2.5 Absolute Nucleated RBC 0.080 H Nucleated RBC % (auto) 2.3 H Smear Tech's Comments VERIFIED PT 17.1 H INR 1.4 H PTT (Heparin Protocol) 71.6 D D-Dimer 3184 VBG pH VBG pCO2 VBG pO2 VBG HCO3 VBG O2 Saturation VBG Base Excess Anion Gap 15 Estim Creat Clear Calc 101.5 Estimated GFR 50 POC Glucose Random Glucose 128 H Calcium 6.4 L Phosphorus 3.9 Magnesium 2.6 Ferritin 302 H Lactate Dehydrogenase 438 H Total Creatine Kinase C-Reactive Protein 9.35 H Procalcitonin C. difficile Toxin A&B C. difficile Antigen C. difficile Interpret 05/07/20 05/07/20 05/07/20 04:05 04:05 04:05 MCV MCH MCHC RDW Plt Count MPV Immature Gran % (Auto) Neut % (Auto) Lymph % (Auto) [place] % (Auto) Eos % (Auto) Baso % (Auto) Lymph # (Auto) [place] # (Auto) Eos # (Auto) Baso # (Auto) Abs Immat Gran (auto) Absolute Neuts (auto) Absolute Nucleated RBC Nucleated RBC % (auto) Smear Tech's Comments PT Cancelled INR Cancelled PTT (Heparin Protocol) D-Dimer Cancelled VBG pH VBG pCO2 VBG pO2 VBG HCO3 VBG O2 Saturation VBG Base Excess Anion Gap Estim Creat Clear Calc Estimated GFR POC Glucose Random Glucose Calcium Phosphorus Magnesium Ferritin Lactate Dehydrogenase Total Creatine Kinase 1097 H D C-Reactive Protein Procalcitonin 0.39 C. difficile Toxin A&B C. difficile Antigen C. difficile Interpret 05/07/20 05/07/20 05/07/20 04:05 05:10 06:54 MCV MCH MCHC RDW Plt Count MPV Immature Gran % (Auto) Neut % (Auto) Lymph % (Auto) [place] % (Auto) Eos % (Auto) Baso % (Auto) Lymph # (Auto) [place] # (Auto) Eos # (Auto) Baso # (Auto) Abs Immat Gran (auto) Absolute Neuts (auto) Absolute Nucleated RBC Nucleated RBC % (auto) Smear Tech's Comments PT INR PTT (Heparin Protocol) D-Dimer VBG pH 7.31 L VBG pCO2 71 VBG pO2 81 VBG HCO3 36 VBG O2 Saturation 92.0 VBG Base Excess 9.1 Anion Gap Estim Creat Clear Calc Estimated GFR POC Glucose 129 H 127 H Random Glucose Calcium Phosphorus Magnesium Ferritin Lactate Dehydrogenase Total Creatine Kinase C-Reactive Protein Procalcitonin C. difficile Toxin A&B C. difficile Antigen C. difficile Interpret 05/07/20 05/07/20 05/07/20 08:50 12:01 12:45 MCV MCH MCHC RDW Plt Count MPV Immature Gran % (Auto) Neut % (Auto) Lymph % (Auto) [place] % (Auto) Eos % (Auto) Baso % (Auto) Lymph # (Auto) [place] # (Auto) Eos # (Auto) Baso # (Auto) Abs Immat Gran (auto) Absolute Neuts (auto) Absolute Nucleated RBC Nucleated RBC % (auto) Smear Tech's Comments PT INR PTT (Heparin Protocol) D-Dimer VBG pH VBG pCO2 VBG pO2 VBG HCO3 VBG O2 Saturation VBG Base Excess Anion Gap Estim Creat Clear Calc Estimated GFR POC Glucose 154 H 227 H Random Glucose Calcium Phosphorus Magnesium Ferritin Lactate Dehydrogenase Total Creatine Kinase C-Reactive Protein Procalcitonin C. difficile Toxin A&B TNP C. difficile Antigen TNP C. difficile Interpret TNP Assessment and Plan (1) Dermatitis, unspecified: Start date: 05/07/20 Problem details: Cutaneous manifestation of COVID19 - non pressure injury Status: Acute See literature published by the National Pressure Injury Advisory Panel regarding published cases of purpuric skin lesions associated with COVID 19 + which are thought to be associated with inflammatory thrombogenic vasculopathy and microvascular occlusion leading to purplish hue and blistering. Treatment recommendations within the literature are limited but skin protection and avoidance of pressure, friction and shearing are prudent.
--- NOTE | 2020-05-07 20:23 | PC.NURSE ---
assumed care at 1500. patient did not tolerate repositioning well. Had been on 40% fio2, spo2 had been 91%, after slight repositioning, desatted to 85-87% range and was not improving. DIscussed with MD, and increased fio2 to 50%. core temp increased from 102.6 to 103.1; cooling blanket in use.
--- NOTE | 2020-05-07 20:30 | PC.RT ---
upon arrival pt on current settings tolerating well, pt is warm to touch temp 103.1, pt appears comfortable and resting. no changes made at this time
[2020-05-07] MEDS: propofoL 1,000 MG/100 ML VIAL 44.16 MG IVCONT (23:19)
[2020-05-08] VITALS (29 sets, daily range): BP systolic 109–154; BP diastolic 36–69; PULSE 75–86; RESP 22–29; TEMP 38.2–39.5; O2SAT 88–100; BMI 67.0
[2020-05-08] MEDS: propofoL 1,000 MG/100 ML VIAL 44.16 MG IVCONT ×5 (01:10→10:09)
[2020-05-08] MEDS: Heparin Sodium,Porcine 5,000 UNIT/ML VIAL 5000 UNIT SUBCUT ×3 (01:11→18:16)
[2020-05-08] MEDS: Albumin Human 25 % 100 ML IV ×5 (01:11→22:36)
[2020-05-08] MEDS: fentaNYL citrate/NS 1,000 MCG/100 ML PLAST..BAG 30 MCG IVCONT ×7 (01:35→23:07)
[2020-05-08 03:58] LABS: Glucose, Whole Blood 200 mg/dL (60-115)
[2020-05-08 05:45] LABS: Base Excess VBG 1.5 mmol/L; HCO3 VBG 27 mmol/L; PCO2 VBG 47 mmHg; PO2 VBG 67 mmHg; pH VBG 7.35 (7.32-7.43)
[2020-05-08 05:47] LABS: Eosinophils Absolute Auto 0.1 X10*3/uL (0.0-0.4); Hematocrit 25.2 % (42-52); Hemoglobin 7.1 g/dl (14.0-18.0); Imm Gran Abs Auto 0.03 X10*3/uL (0.00-0.03); Lymphocytes Absolute Auto 0.4 X10*3/uL (1.2-4.9); Lymphocytes Percent Auto 13.2 % (20-40); MANUAL DIFF FLAG SCAN; Mean Corpuscular HGB Conc 28.2 g/dl (31.0-36.0); Mean Corpuscular Hemoglobin 30.1 pg (27.0-33.0); Mean Corpuscular Volume 106.8 fL (80-98); Mean Platelet Volume 10.8 fL (9.4-12.4); Monocytes Absolute Auto 0.2 X10*3/uL (0.1-1.2); Monocytes Percent Auto 6.4 % (2-11); Neutrophils Absolute Auto 2.3 X10*3/uL (2.0-8.3); Neutrophils Percent Auto 76.4 % (45-73); Red Blood Count 2.36 X10*6/uL (4.60-5.80); Red Cell Distribution Width 17.2 % (11.0-16.0); SCAN SMEAR FLAG 1
[2020-05-08 05:57] LABS: NRBC Pct Auto 1.4 /100WBC (0.0-0.2); Platelet Count 70 X10*3/uL (160-400)
[2020-05-08 06:12] LABS: Glucose, Whole Blood 225 mg/dL (60-115)
[2020-05-08 06:15] LABS: Alanine Aminotransferase 51 U/L (0-40); Albumin Level 3.1 g/dL (3.5-5.0); Alkaline Phosphatase 41 U/L (39-117); Anion Gap 15 (12-20); Aspartate Amino Transferase 39 U/L (5-37); Bilirubin Total 0.9 mg/dL (0.0-1.0); Blood Urea Nitrogen 48 mg/dL (9-16); C Reactive Protein 8.97 mg/dL (< or = 0.50); Calcium 7.1 mg/dL (8.4-10.2); Carbon Dioxide 25 mmol/L (22-29); Chloride 116 mmol/L (96-108); Creatinine Clr Calc Pharmacy 104.6; Estimated Glomerular Filt Rate 51; Glucose Random 256 mg/dL (60-115); Lactate Dehydrogenase 348 U/L (118-273); Magnesium 2.6 mg/dL (1.6-2.6); Phosphorus 4.1 mg/dL (2.7-4.5); Potassium 4.3 mmol/l (3.3-5.1); Sodium 152 mmol/L (135-145); Total Protein 5.8 g/dL (6.5-8.0)
[2020-05-08 06:26] LABS: Procalcitonin 0.38 ng/mL
[2020-05-08 07:12] LABS: D Dimer 4028 NG/ML
[2020-05-08] MEDS: Lactulose 20 GM/30 ML SOLUTION 30 GM PO (07:53)
[2020-05-08] MEDS: Chlorhexidine Gluc Oral Rinse 15 ML MOUTHWASH BUCCAL ×3 (07:53→20:56)
[2020-05-08] MEDS: dexAMETHasone sod phosphate 4 MG/ML VIAL 6 MG IVPUSH (07:53)
[2020-05-08] MEDS: Furosemide 40 MG/4 ML VIAL IVPUSH (07:53)
[2020-05-08] MEDS: Insulin Glargine,Hum.rec.anlog 100 UNIT/ML 10 ML VIAL 60 UNIT SUBCUT (07:54)
[2020-05-08] MEDS: Calcium Gluconate/NaCl,Iso-Osm 2 GM/100 ML PLAST..BAG IV (07:55)
[2020-05-08] MEDS: propofoL 1,000 MG/100 ML VIAL 49.68 MG IVCONT ×6 (11:44→22:48)
[2020-05-08 12:08] LABS: Glucose, Whole Blood 336 mg/dL (60-115)
[2020-05-08] MEDS: Insulin Lispro 100 UNIT/ML 3 ML VIAL SUBCUT ×3 (12:09→23:53)
[2020-05-08 12:38] LABS: SLIDE REVIEW VERIFIED
--- NOTE | 2020-05-08 14:01 | PC.NURSE ---
Pt intubated and sedated, propofol increased to 45mcg/kg/min as pt frequently breathing over vent and coughing, fentanyl running at 300mcg/hr. Vent settings pressure control rate 22, PEEP 8, I pressure 30, FiO2 decreased to 45% Tv are 590-600, min vol. 14-16L/min, SaO2 93%. Pt SaO2 dipped to 87% at one point and was suctioned for a small-mod amt thick sputum inline, repositioned, SaO2 back to 93%. ET tube #8, 26cm lip, orophayngeal suctioning, builds up clear saliva. Pt is NSR 80's, BP stable. Temp 101.7, continues to have cooling blanket in place. Pt's rectal tube with dark stool, lactulose dose decreased to once per day. Lasix dose increased to 60mg BID. Albumin IVF added. Turn and repo q2h, stage 2 pressure injury buttocks bilat, barrier cream applied. Restraints in place. Bed locked and in lowest position.
--- NOTE | 2020-05-08 14:07 | P.PNCC_ITS ---
Subjective Subjective Date of Service: 05/08/20 Interval History: 49-year-old gentleman with underlying super morbid obesity, right BKA, diabetes mellitus, right-sided heart failure admitted on 05/03/2020 with acute hypoxic respiratory failure secondary to COVID-19 ARDS (on the background of chronic hypercapnic respiratory failure secondary to underlying obesity hyperventilation syndrome) requiring intubation and ventilatory support. No events overnight. Physical Exam Vital Signs: Vital Signs: Last Vital Signs Temp 101.5 F H 05/08/20 13:00 Pulse 84 05/08/20 13:00 Resp 22 H 05/08/20 13:00 BP 132/57 L 05/08/20 13:00 Pulse Ox 93 05/08/20 13:00 Body Mass Index 67.0 Const: General: no acute distress and other (Sedated on the vent) Nutritional Appearance: obese Eyes: Sclerae: sclerae normal EOM: EOMs intact bilaterally Neck: Neck: Yes no lymphadenopathy, Yes trachea midline and Yes supple Resp: Auscultation: crackles (Bibasilar) Cardio: Rate: regular rate Rhythm: regular rhythm Heart sounds: no gallops, no murmurs and no rubs GI: Palpation (GI): Soft to palpation and Other GI palpation findings present ( Nontender) Auscultation: normal bowel sounds Extrem: General: No clubbing, No cyanosis and Yes edema (Left lower extremity 1+) Objective Data Labs CBC & Chem 7: 05/08/20 05:30 05/08/20 05:30 Labs: Laboratory Results - last 24 hr 05/08/20 05/08/20 05/08/20 01:15 05:30 05:30 WBC 3.0 L RBC 2.36 L Hgb 7.1 L Hct 25.2 L MCV 106.8 H MCH 30.1 MCHC 28.2 L RDW 17.2 H Plt Count 70 L MPV 10.8 Immature Gran % (Auto) 1.0 H Neut % (Auto) 76.4 H Lymph % (Auto) 13.2 L [place] % (Auto) 6.4 Eos % (Auto) 3.0 Baso % (Auto) 0.0 Lymph # (Auto) 0.4 L [place] # (Auto) 0.2 Eos # (Auto) 0.1 Baso # (Auto) 0.0 Abs Immat Gran (auto) 0.03 Absolute Neuts (auto) 2.3 Absolute Nucleated RBC 0.040 H Nucleated RBC % (auto) 1.4 H Smear Tech's Comments VERIFIED D-Dimer 4028 VBG pH VBG pCO2 VBG pO2 VBG HCO3 VBG O2 Saturation VBG Base Excess Sodium Potassium Chloride Carbon Dioxide Anion Gap BUN Creatinine Estim Creat Clear Calc Estimated GFR POC Glucose 200 H Random Glucose Calcium Phosphorus Magnesium Total Bilirubin AST ALT Alkaline Phosphatase Lactate Dehydrogenase Total Creatine Kinase C-Reactive Protein Total Protein Albumin Procalcitonin 05/08/20 05/08/20 05/08/20 05:30 05:30 05:30 WBC RBC Hgb Hct MCV MCH MCHC RDW Plt Count MPV Immature Gran % (Auto) Neut % (Auto) Lymph % (Auto) [place] % (Auto) Eos % (Auto) Baso % (Auto) Lymph # (Auto) [place] # (Auto) Eos # (Auto) Baso # (Auto) Abs Immat Gran (auto) Absolute Neuts (auto) Absolute Nucleated RBC Nucleated RBC % (auto) Smear Tech's Comments D-Dimer VBG pH 7.35 VBG pCO2 47 VBG pO2 67 VBG HCO3 27 VBG O2 Saturation 89.0 VBG Base Excess 1.5 Sodium 152 H Potassium 4.3 Chloride 116 H Carbon Dioxide 25 Anion Gap 15 BUN 48 H Creatinine 1.46 H Estim Creat Clear Calc 104.6 Estimated GFR 51 POC Glucose Random Glucose 256 H D Calcium 7.1 L D Phosphorus 4.1 Magnesium 2.6 Total Bilirubin 0.9 AST 39 H D ALT 51 H Alkaline Phosphatase 41 D Lactate Dehydrogenase 348 H Total Creatine Kinase 1574 H D C-Reactive Protein 8.97 H Total Protein 5.8 L Albumin 3.1 L Procalcitonin 0.38 05/08/20 05/08/20 06:08 12:02 WBC RBC Hgb Hct MCV MCH MCHC RDW Plt Count MPV Immature Gran % (Auto) Neut % (Auto) Lymph % (Auto) [place] % (Auto) Eos % (Auto) Baso % (Auto) Lymph # (Auto) [place] # (Auto) Eos # (Auto) Baso # (Auto) Abs Immat Gran (auto) Absolute Neuts (auto) Absolute Nucleated RBC Nucleated RBC % (auto) Smear Tech's Comments D-Dimer VBG pH VBG pCO2 VBG pO2 VBG HCO3 VBG O2 Saturation VBG Base Excess Sodium Potassium Chloride Carbon Dioxide Anion Gap BUN Creatinine Estim Creat Clear Calc Estimated GFR POC Glucose 225 H 336 H Random Glucose Calcium Phosphorus Magnesium Total Bilirubin AST ALT Alkaline Phosphatase Lactate Dehydrogenase Total Creatine Kinase C-Reactive Protein Total Protein Albumin Procalcitonin Microbiology Microbiology Results: Microbiology 05/06/20 16:38 Blood - Venous Blood Culture - Preliminary No growth after 24 hours. 05/06/20 16:37 Blood - Venous Blood Culture - Preliminary No growth after 24 hours. 05/05/20 10:36 Blood - Venous Blood Culture - Preliminary No growth after 48 hours. 05/05/20 10:36 Blood - Venous Blood Culture - Preliminary No growth after 48 hours. 05/06/20 16:37 Urine Catheterized - Moser Catheter Urine Culture - Preliminary No growth to date. 05/06/20 12:03 Sputum - Suctioned Gram Stain - Final 05/06/20 12:03 Sputum - Suctioned Sputum Culture - Preliminary Gram negative hipolito 05/04/20 08:10 Sputum - Suctioned Gram Stain - Final 05/04/20 08:10 Sputum - Suctioned Sputum Culture - Final 05/03/20 16:12 Blood - Venous Blood Culture - Final Corynebacterium species 05/03/20 16:12 Blood - Venous Blood Culture - Preliminary No growth after 48 hours. 05/04/20 10:00 Urine Catheterized - Moser Catheter Urine Culture - Final No growth. Progress Note: A&P Assessment and plan (1) ARDS (adult respiratory distress syndrome): Status: Acute Assessment and Plan: Assessment: 49-year-old gentleman with underlying morbid obesity, chronic r ight-sided congestive heart failure, diabetes mellitus admitted with acute hypoxic respiratory failure secondary to COVID-19 ARDS further complicated by acute renal failure and exacerbation of underlying chronic right-sided congestive heart failure Plan: Neuro: No acute issues. Cardiac: Acute on chronic right-sided congestive heart failure. Continue with diuresis. Pulmonary: Acute hypoxic respiratory failure secondary to COVID-19 ARDS. Continue to titrate off ventilatory support as tolerated. Underlying chronic hypercapnic respiratory failure secondary to obstructive sleep apnea and obesity hyperventilation support requiring BiPAP support at night. Renal: Acute renal failure on the background of chronic renal disease secondary to COVID-19, improving. Non oliguric. Continue to monitor renal indices and urine output. Endo: No acute issues. Underlying diabetes mellitus. GI: No acute issues. ID: COVID 19, continue dexamethasone for total of 10 days. No evidence of bacterial infection, taken off antibiotics. Fevers likely either central or drug related. Heme/Onc: No acute issues. Psych: No acute issues. Miscellaneous: No acute issues. Prophylaxis: Heparin, ppi Diet: Tube feeds Critical care time spent: 60 minutes (2) COVID-19: Status: Acute (3) Respiratory failure with hypoxia: Status: Acute (4) Acute on chronic right heart failure: Status: Acute (5) Morbid obesity: Status: Acute (6) Diabetes mellitus: Status: Acute Time Spent With Patient Total time spent with greater than 50% in coordination of care (as documented) at patient's floor/unit and/or counseling patient:: 0 Critical Care Time Critical Care Time (minutes): 60
[2020-05-08 18:16] LABS: Glucose, Whole Blood 349 mg/dL (60-115)
[2020-05-08] MEDS: Furosemide 40 MG/4 ML VIAL 60 MG IVPUSH (18:17)
[2020-05-08] MEDS: Acetaminophen Oral Liquid 650 MG/20.3 ML SOLUTION OG-TUBE (20:56)
[2020-05-08 23:39] LABS: Glucose, Whole Blood 274 mg/dL (60-115)
[2020-05-09] VITALS (30 sets, daily range): BP systolic 110–141; BP diastolic 34–57; PULSE 73–86; RESP 18–24; TEMP 39.3–40.2; O2SAT 87–100
[2020-05-09] MEDS: propofoL 1,000 MG/100 ML VIAL 49.68 MG IVCONT ×11 (00:05→23:06)
[2020-05-09] MEDS: fentaNYL citrate/NS 1,000 MCG/100 ML PLAST..BAG 30 MCG IVCONT ×6 (00:06→17:04)
[2020-05-09] MEDS: Heparin Sodium,Porcine 5,000 UNIT/ML VIAL 5000 UNIT SUBCUT ×3 (02:14→19:28)
[2020-05-09] MEDS: propofoL 1,000 MG/100 ML VIAL 55.2 MG IVCONT ×3 (03:50→06:24)
[2020-05-09] MEDS: Albumin Human 25 % 100 ML IV (05:20)
[2020-05-09] MEDS: Acetaminophen Oral Liquid 650 MG/20.3 ML SOLUTION OG-TUBE (05:57)
[2020-05-09 05:58] LABS: Basophils Percent Auto 0.3 % (0-2); Eosinophils Absolute Auto 0.1 X10*3/uL (0.0-0.4); Eosinophils Percent Auto 4.3 % (0-4); Hematocrit 26.9 % (42-52); Hemoglobin 7.8 g/dl (14.0-18.0); Imm Gran Abs Auto 0.03 X10*3/uL (0.00-0.03); Imm Gran Pct Auto 0.9 % (0.0-0.4); Lymphocytes Absolute Auto 0.4 X10*3/uL (1.2-4.9); Lymphocytes Percent Auto 11.1 % (20-40); MANUAL DIFF FLAG SCAN; Mean Corpuscular Hemoglobin 30.8 pg (27.0-33.0); Mean Corpuscular Volume 106.3 fL (80-98); Mean Platelet Volume 11.7 fL (9.4-12.4); Monocytes Absolute Auto 0.2 X10*3/uL (0.1-1.2); Monocytes Percent Auto 5.3 % (2-11); NRBC Pct Auto 0.9 /100WBC (0.0-0.2); Neutrophils Absolute Auto 2.5 X10*3/uL (2.0-8.3); Neutrophils Percent Auto 78.1 % (45-73); Red Blood Count 2.53 X10*6/uL (4.60-5.80); Red Cell Distribution Width 17.1 % (11.0-16.0); SCAN SMEAR FLAG 1; White Blood Count 3.2 X10*3/uL (4.8-10.8)
[2020-05-09 06:05] LABS: Platelet Count 78 X10*3/uL (160-400)
[2020-05-09 06:06] LABS: SLIDE REVIEW VERIFIED
[2020-05-09 06:07] LABS: Base Excess VBG 10.3 mmol/L; HCO3 VBG 36 mmol/L; PCO2 VBG 60 mmHg; PO2 VBG 57 mmHg; pH VBG 7.38 (7.32-7.43)
[2020-05-09 06:33] LABS: Albumin Level 3.3 g/dL (3.5-5.0); Anion Gap 12 (12-20); Blood Urea Nitrogen 48 mg/dL (9-16); Calcium 7.7 mg/dL (8.4-10.2); Carbon Dioxide 27 mmol/L (22-29); Chloride 116 mmol/L (96-108); Creatinine Clr Calc Pharmacy 100.8; Estimated Glomerular Filt Rate 50; Glucose Random 255 mg/dL (60-115); Magnesium 2.8 mg/dL (1.6-2.6); Phosphorus 3.1 mg/dL (2.7-4.5); Potassium 4.1 mmol/l (3.3-5.1); Sodium 151 mmol/L (135-145)
[2020-05-09 06:46] LABS: Glucose, Whole Blood 239 mg/dL (60-115)
[2020-05-09] MEDS: Insulin Lispro 100 UNIT/ML 3 ML VIAL SUBCUT ×3 (06:47→17:11)
[2020-05-09] MEDS: Lactulose 20 GM/30 ML SOLUTION 30 GM PO (07:55)
[2020-05-09] MEDS: Chlorhexidine Gluc Oral Rinse 15 ML MOUTHWASH BUCCAL ×3 (07:55→19:28)
[2020-05-09] MEDS: Furosemide 40 MG/4 ML VIAL 60 MG IVPUSH ×2 (07:56→17:03)
[2020-05-09] MEDS: dexAMETHasone sod phosphate 4 MG/ML VIAL 6 MG IVPUSH (07:56)
[2020-05-09] MEDS: Insulin Glargine,Hum.rec.anlog 100 UNIT/ML 10 ML VIAL 60 UNIT SUBCUT (07:56)
[2020-05-09] MEDS: Ibuprofen Oral Susp 200 MG/10 ML ORAL.SUSP 800 MG PO (10:31)
--- NOTE | 2020-05-09 10:31 | MHC.CLN ---
F/U PT RECEIVING PROMOTE AT 10CC/HR WITH 300CC Q 6 HRS TO PROVIDE 240KCALS (1551KCALS WITH SEDATION; 23KCALS/KG), 15G PROTEIN, 1401CC FREE WATER FROM FORMULA AND FLUSHES JONI IN PLACE VIA OG TO SUPPORT WOUND HEALING
--- NOTE | 2020-05-09 11:55 | PM.CCPN ---
Subjective Subjective Date of Service: 05/09/20 Interval History: 49-year-old gentleman with underlying super morbid obesity, right BKA, diabetes mellitus, right-sided heart failure admitted on 05/03/2020 with acute hypoxic respiratory failure secondary to COVID-19 ARDS (on the background of chronic hypercapnic respiratory failure secondary to underlying obesity hyperventilation syndrome) requiring intubation and ventilatory support. No events overnight. Significant changes. Continue with routine ICU level of care. Physical Exam Vital Signs: Vital Signs: Last Vital Signs Temp 104.0 F H 05/09/20 11:00 Pulse 80 05/09/20 11:00 Resp 22 H 05/09/20 11:00 BP 130/47 L 05/09/20 11:00 Pulse Ox 96 05/09/20 11:00 Body Mass Index 67.0 Const: General: no acute distress and other (Sedated on the vent) Nutritional Appearance: obese Eyes: Sclerae: sclerae normal Neck: Neck: Yes no lymphadenopathy, Yes trachea midline and Yes supple Resp: Auscultation: crackles (Diffuse bilateral) Cardio: Rate: regular rate Rhythm: regular rhythm Heart sounds: no gallops, no murmurs and no rubs GI: Palpation (GI): Soft to palpation and Other GI palpation findings present ( Nontender) Auscultation: normal bowel sounds Extrem: General: No clubbing, No cyanosis and Yes edema (1+ left lower extremity) Objective Data Labs CBC & Chem 7: 05/09/20 05:47 05/09/20 05:47 Labs: Laboratory Results - last 24 hr 05/08/20 05/08/20 05/08/20 05:30 12:02 18:13 WBC RBC Hgb Hct MCV MCH MCHC RDW Plt Count MPV Immature Gran % (Auto) Neut % (Auto) Lymph % (Auto) [place] % (Auto) Eos % (Auto) Baso % (Auto) Lymph # (Auto) [place] # (Auto) Eos # (Auto) Baso # (Auto) Abs Immat Gran (auto) Absolute Neuts (auto) Absolute Nucleated RBC Nucleated RBC % (auto) Smear Tech's Comments VERIFIED VBG pH VBG pCO2 VBG pO2 VBG HCO3 VBG O2 Saturation VBG Base Excess Sodium Potassium Chloride Carbon Dioxide Anion Gap BUN Creatinine Estim Creat Clear Calc Estimated GFR POC Glucose 336 H 349 H Random Glucose Calcium Phosphorus Magnesium Albumin 05/08/20 05/09/20 05/09/20 23:35 05:47 05:47 WBC 3.2 L RBC 2.53 L Hgb 7.8 L Hct 26.9 L MCV 106.3 H MCH 30.8 MCHC 29.0 L RDW 17.1 H Plt Count 78 L MPV 11.7 Immature Gran % (Auto) 0.9 H Neut % (Auto) 78.1 H Lymph % (Auto) 11.1 L [place] % (Auto) 5.3 Eos % (Auto) 4.3 H Baso % (Auto) 0.3 Lymph # (Auto) 0.4 L [place] # (Auto) 0.2 Eos # (Auto) 0.1 Baso # (Auto) 0.0 Abs Immat Gran (auto) 0.03 Absolute Neuts (auto) 2.5 Absolute Nucleated RBC 0.030 H Nucleated RBC % (auto) 0.9 H Smear Tech's Comments VERIFIED VBG pH VBG pCO2 VBG pO2 VBG HCO3 VBG O2 Saturation VBG Base Excess Sodium 151 H Potassium 4.1 Chloride 116 H Carbon Dioxide 27 Anion Gap 12 BUN 48 H Creatinine 1.50 H Estim Creat Clear Calc 100.8 Estimated GFR 50 POC Glucose 274 H Random Glucose 255 H Calcium 7.7 L D Phosphorus 3.1 Magnesium 2.8 H Albumin 3.3 L 05/09/20 05/09/20 05:47 06:41 WBC RBC Hgb Hct MCV MCH MCHC RDW Plt Count MPV Immature Gran % (Auto) Neut % (Auto) Lymph % (Auto) [place] % (Auto) Eos % (Auto) Baso % (Auto) Lymph # (Auto) [place] # (Auto) Eos # (Auto) Baso # (Auto) Abs Immat Gran (auto) Absolute Neuts (auto) Absolute Nucleated RBC Nucleated RBC % (auto) Smear Tech's Comments VBG pH 7.38 VBG pCO2 60 VBG pO2 57 VBG HCO3 36 VBG O2 Saturation 85.0 VBG Base Excess 10.3 Sodium Potassium Chloride Carbon Dioxide Anion Gap BUN Creatinine Estim Creat Clear Calc Estimated GFR POC Glucose 239 H Random Glucose Calcium Phosphorus Magnesium Albumin Microbiology Microbiology Results: Microbiology 05/06/20 16:37 Urine Catheterized - Moser Catheter Urine Culture - Final No growth. 05/06/20 12:03 Sputum - Suctioned Gram Stain - Final 05/06/20 12:03 Sputum - Suctioned Sputum Culture - Final Stenotrophomonas maltophilia 05/06/20 16:38 Blood - Venous Blood Culture - Preliminary No growth after 48 hours. 05/06/20 16:37 Blood - Venous Blood Culture - Preliminary No growth after 48 hours. 05/03/20 16:12 Blood - Venous Blood Culture - Final No growth after 5 days. 05/05/20 10:36 Blood - Venous Blood Culture - Preliminary No growth after 48 hours. 05/05/20 10:36 Blood - Venous Blood Culture - Preliminary No growth after 48 hours. 05/04/20 08:10 Sputum - Suctioned Gram Stain - Final 05/04/20 08:10 Sputum - Suctioned Sputum Culture - Final 05/03/20 16:12 Blood - Venous Blood Culture - Final Corynebacterium species 05/04/20 10:00 Urine Catheterized - Moser Catheter Urine Culture - Final No growth. Progress Note: A&P Assessment and plan (1) ARDS (adult respiratory distress syndrome): Status: Acute Assessment and Plan: Assessment: 49-year-old gentleman with underlying morbid obesity, chronic right-sided congestive heart failure, diabetes mellitus admitted with acute hypoxic respiratory failure secondary to COVID-19 ARDS further complicated by acute renal failure and exacerbation of underlying chronic right-sided congestive heart failure Plan: Neuro: No acute issues. Cardiac: Acute on chronic right-sided congestive heart failure. Continue with diuresis. Goal to maintain net negative 1 to 2 L per 24 hours. Pulmonary: Acute hypoxic respiratory failure secondary to COVID-19 ARDS. Continue to titrate off ventilatory support as tolerated. Underlying chronic hypercapnic respiratory failure secondary to obstructive sleep apnea and obesity hyperventilation support requiring BiPAP support at night. Renal: Acute renal failure on the background of chronic renal disease secondary to COVID-19. Non oliguric. Continue to monitor renal indices and urine output. Endo: No acute issues. Underlying diabetes mellitus. GI: No acute issues. ID: COVID 19, continue dexamethasone for total of 10 days. No evidence of bacterial infection, taken off antibiotics. Fevers may still be secondary to underlying COVID-19 or central. Will consider CT head in a.m. if not improving. Heme/Onc: No acute issues. Psych: No acute issues. Miscellaneous: No acute issues. Prophylaxis: Heparin, ppi Diet: Tube feeds Critical care time spent: 60 minutes (2) COVID-19: Status: Acute (3) Respiratory failure with hypoxia: Status: Acute (4) Acute on chronic right heart failure: Status: Acute (5) Morbid obesity: Status: Acute (6) Diabetes mellitus: Status: Acute (7) Obesity hypoventilation syndrome: Status: Acute Time Spent With Patient Total time spent with greater than 50% in coordination of care (as documented) at patient's floor/unit and/or counseling patient:: 0 Critical Care Time Critical Care Time (minutes): 60
[2020-05-09 12:09] LABS: Glucose, Whole Blood 352 mg/dL (60-115)
--- NOTE | 2020-05-09 13:12 | PC.NURSE ---
Pt intubated and sedated, on propofol 45mcg/kg/min, fentanyl at 300mcg/hr, does not follow commands, extends arms and moves head side to side with light touch. Vent settings pressure control rate 22, FiO2 titrate 45%, 50%, now 40%, I pressure 30, PEEP 8, TV 650 min vol. 16L/min, ETCO2 35, SaO2 ranging 85-93%, prefers right side laying, lungs dim, #8 ET tube, 26cm lip. Temp up to 104.6, given 800mg ibuprofen OG tube, tylenol given, cooling packs under arms and legs, temp trending down to 104.2, MD aware. Cooling blanket unavailable at this time, supervisor lace tearing notified, trying to obtain. BP stable, NSR 80s. Making plenty of urine, on lasix. Stage 2 buttocks bilat, barrier cream applied. Bed locked and in lowest position, call mayen in reach
[2020-05-09] MEDS: Artificial Tears Ophth Oint 3.5 GM TUBE 1 APPL EYE-BOTH ×2 (14:45→21:02)
[2020-05-09 17:31] LABS: Glucose, Whole Blood 344 mg/dL (60-115)
[2020-05-09 18:33] LABS: Glucose, Whole Blood 343 mg/dL (60-115)
[2020-05-09] MEDS: fentaNYL citrate/NS 1,000 MCG/100 ML PLAST..BAG 27.5 MCG IVCONT (21:01)
[2020-05-09 23:29] LABS: Glucose, Whole Blood 266 mg/dL (60-115)
[2020-05-10] VITALS (31 sets, daily range): BP systolic 118–155; BP diastolic 36–67; PULSE 75–106; RESP 22–36; TEMP 39.2–40.3; O2SAT 88–100; BMI 67.0
--- NOTE | 2020-05-10 | CT_ITS ---
EXAMINATION: CT HEAD WITHOUT CONTRAST CLINICAL INFORMATION: Fever. COMPARISON: None. TECHNIQUE: Contiguous axial imaging was performed from the skull base to vertex without intravenous administration of contrast. Coronal and sagittal reformatted images are performed at the CT scanner. [This CT examination was performed using dose optimization techniques as appropriate, variously including the following: *Automated exposure control *Adjustment of mA and/or kV according to patient size (this includes techniques or standardized protocols for targeted exams where dose is matched to indication/reason for exam; i.e. extremities or head) *Use of iterative reconstruction technique] DLP: 1253 mGy-cm. FINDINGS: There is no evidence of acute intracranial hemorrhage or territorial infarction. No abnormal mass-effect or midline shift is seen. [place] to white matter differentiation is well preserved. No extra-axial fluid collections are identified. There is age-appropriate atrophy with prominence of the ventricles and the sulci and hypodensity of the periventricular white matter due to chronic small vessel ischemic disease. There are vascular calcifications of the internal carotid arteries bilaterally. There is no osseous abnormality. There is sinus disease. Air-fluid levels present in the ethmoid and sphenoid sinuses and frontal sinus. There is mucosal thickening in the maxillary sinuses bilateral. Small amount of fluid in the dependent mastoid air cells. The middle ear cavities are normally aerated. Orogastric and nasogastric gastric tube in place CT/CT head/brain wo con IMPRESSION: 1. No acute intracranial pathology. 2. Sinus disease.
[2020-05-10] MEDS: Insulin Lispro 100 UNIT/ML 3 ML VIAL SUBCUT ×4 (00:53→18:32)
[2020-05-10] MEDS: fentaNYL citrate/NS 1,000 MCG/100 ML PLAST..BAG 25 MCG IVCONT ×3 (00:54→09:18)
[2020-05-10] MEDS: propofoL 1,000 MG/100 ML VIAL 49.68 MG IVCONT ×6 (01:05→11:06)
[2020-05-10] MEDS: Heparin Sodium,Porcine 5,000 UNIT/ML VIAL 5000 UNIT SUBCUT ×3 (03:15→18:50)
[2020-05-10 05:46] LABS: Eosinophils Absolute Auto 0.1 X10*3/uL (0.0-0.4); Eosinophils Percent Auto 3.4 % (0-4); Hematocrit 28.3 % (42-52); Imm Gran Abs Auto 0.02 X10*3/uL (0.00-0.03); Imm Gran Pct Auto 0.5 % (0.0-0.4); Lymphocytes Absolute Auto 0.4 X10*3/uL (1.2-4.9); Lymphocytes Percent Auto 11.4 % (20-40); MANUAL DIFF FLAG SCAN; Mean Corpuscular HGB Conc 28.3 g/dl (31.0-36.0); Monocytes Absolute Auto 0.2 X10*3/uL (0.1-1.2); Monocytes Percent Auto 5.8 % (2-11); Neutrophils Percent Auto 78.9 % (45-73); Red Blood Count 2.67 X10*6/uL (4.60-5.80); Red Cell Distribution Width 17.2 % (11.0-16.0); SCAN SMEAR FLAG 1; White Blood Count 3.8 X10*3/uL (4.8-10.8)
[2020-05-10 05:47] LABS: Base Excess VBG 3.4 mmol/L; HCO3 VBG 29 mmol/L; PCO2 VBG 51 mmHg; PO2 VBG 75 mmHg; pH VBG 7.36 (7.32-7.43)
[2020-05-10 05:50] LABS: Platelet Count 72 X10*3/uL (160-400)
[2020-05-10 05:51] LABS: SLIDE REVIEW VERIFIED
--- NOTE | 2020-05-10 06:00 | XR_ITS ---
EXAMINATION: XR CHEST CLINICAL INFORMATION: Hypoxia COMPARISON: 05/06/2020 TECHNIQUE: Frontal view of the chest was obtained. FINDINGS: The endotracheal tube terminates approximately 3.5 cm above the valerie. Enteric tube extends distally, beyond the [id number] of this study. Cardiac leads overlie the chest. Right internal jugular central venous catheter has changed position, extending into the right subclavian vein extending towards the axilla. The lungs are well expanded. Diffuse bilateral airspace opacities are again noted. No pleural effusion or pneumothorax. The cardiomediastinal silhouette is unchanged. XR/XR chest 1V IMPRESSION: Endotracheal tube terminating approximately 3.5 cm above the valerie. There is change in position of the right internal jugular central venous catheter, now extending into the right subclavian vein, oriented toward the axilla. Persistent patchy diffuse bilateral airspace opacities. No significant change. This critical result was discussed with Juan Lyons MD by telephone at 05/10/2020 8:02 AM and it was ascertained that the content and urgency of the report was understood at the time of direct communication.
[2020-05-10 06:17] LABS: Albumin Level 3.2 g/dL (3.5-5.0); Anion Gap 18 (12-20); Blood Urea Nitrogen 57 mg/dL (9-16); Calcium 7.8 mg/dL (8.4-10.2); Carbon Dioxide 23 mmol/L (22-29); Chloride 115 mmol/L (96-108); Creatinine Clr Calc Pharmacy 86.4; Estimated Glomerular Filt Rate 41; Glucose Random 270 mg/dL (60-115); Magnesium 2.7 mg/dL (1.6-2.6); Phosphorus 3.7 mg/dL (2.7-4.5); Potassium 3.9 mmol/l (3.3-5.1); Sodium 152 mmol/L (135-145)
[2020-05-10 06:26] LABS: Glucose, Whole Blood 255 mg/dL (60-115)
[2020-05-10] MEDS: Albumin Human 25 % 100 ML IV ×3 (07:32→18:32)
[2020-05-10] MEDS: Potassium Chloride/H20 40 MEQ/100 ML PIGGYBACK 100 MEQ IV (07:32)
[2020-05-10] MEDS: Artificial Tears Ophth Oint 3.5 GM TUBE 1 APPL EYE-BOTH ×2 (09:18→22:50)
[2020-05-10] MEDS: Chlorhexidine Gluc Oral Rinse 15 ML MOUTHWASH BUCCAL ×3 (09:18→22:49)
[2020-05-10] MEDS: dexAMETHasone sod phosphate 4 MG/ML VIAL 6 MG IVPUSH (09:19)
[2020-05-10] MEDS: Insulin Glargine,Hum.rec.anlog 100 UNIT/ML 10 ML VIAL 70 UNIT SUBCUT (09:19)
[2020-05-10] MEDS: Furosemide 40 MG/4 ML VIAL 60 MG IVPUSH (09:19)
--- NOTE | 2020-05-10 12:39 | PM.CCPN ---
Subjective Subjective Date of Service: 05/10/20 Interval History: 49-year-old gentleman with underlying super morbid obesity, right BKA, diabetes mellitus, right-sided heart failure admitted on 05/03/2020 with acute hypoxic respiratory failure secondary to COVID-19 ARDS (on the background of chronic hypercapnic respiratory failure secondary to underlying obesity hyperventilation syndrome) requiring intubation and ventilatory support. No events overnight. Did not tolerate pressure support trial today. Physical Exam Vital Signs: Vital Signs: Last Vital Signs Temp 103.6 F H 05/10/20 11:56 Pulse 101 H 05/10/20 11:56 Resp 32 H 05/10/20 11:56 BP 130/49 L 05/10/20 11:56 Pulse Ox 92 05/10/20 11:56 Body Mass Index 67.0 Const: General: no acute distress and other (Sedated on the vent) Nutritional Appearance: obese Eyes: Sclerae: sclerae normal EOM: EOMs intact bilaterally Neck: Neck: Yes no lymphadenopathy, Yes trachea midline and Yes supple Resp: Auscultation: crackles (Diffuse bilateral) Cardio: Rate: regular rate Rhythm: regular rhythm Heart sounds: no gallops, no murmurs and no rubs GI: Palpation (GI): Soft to palpation and Other GI palpation findings present ( Nontender) Auscultation: normal bowel sounds Extrem: General: No clubbing, No cyanosis and Yes edema (1+ left lower extremity) Objective Data Labs CBC & Chem 7: 05/10/20 05:34 05/10/20 05:34 Labs: Laboratory Results - last 24 hr 05/03/20 05/09/20 05/09/20 16:09 17:10 18:12 WBC RBC Hgb Hct MCV MCH MCHC RDW Plt Count MPV Immature Gran % (Auto) Neut % (Auto) Lymph % (Auto) [place] % (Auto) Eos % (Auto) Baso % (Auto) Lymph # (Auto) [place] # (Auto) Eos # (Auto) Baso # (Auto) Abs Immat Gran (auto) Absolute Neuts (auto) Absolute Nucleated RBC Nucleated RBC % (auto) Smear Tech's Comments Smear Path Review SEE NOTE VBG pH VBG pCO2 VBG pO2 VBG HCO3 VBG O2 Saturation VBG Base Excess Sodium Potassium Chloride Carbon Dioxide Anion Gap BUN Creatinine Estim Creat Clear Calc Estimated GFR POC Glucose 344 H 343 H Random Glucose Calcium Phosphorus Magnesium Albumin 05/09/20 05/10/20 05/10/20 23:08 05:34 05:34 WBC 3.8 L RBC 2.67 L Hgb 8.0 L Hct 28.3 L MCV 106.0 H MCH 30.0 MCHC 28.3 L RDW 17.2 H Plt Count 72 L MPV 12.0 Immature Gran % (Auto) 0.5 H Neut % (Auto) 78.9 H Lymph % (Auto) 11.4 L [place] % (Auto) 5.8 Eos % (Auto) 3.4 Baso % (Auto) 0.0 Lymph # (Auto) 0.4 L [place] # (Auto) 0.2 Eos # (Auto) 0.1 Baso # (Auto) 0.0 Abs Immat Gran (auto) 0.02 Absolute Neuts (auto) 3.0 Absolute Nucleated RBC 0.000 Nucleated RBC % (auto) 0.0 Smear Tech's Comments VERIFIED Smear Path Review VBG pH VBG pCO2 VBG pO2 VBG HCO3 VBG O2 Saturation VBG Base Excess Sodium 152 H Potassium 3.9 Chloride 115 H Carbon Dioxide 23 Anion Gap 18 BUN 57 H Creatinine 1.75 H Estim Creat Clear Calc 86.4 Estimated GFR 41 POC Glucose 266 H Random Glucose 270 H Calcium 7.8 L Phosphorus 3.7 Magnesium 2.7 H Albumin 3.2 L 05/10/20 05/10/20 05:34 06:20 WBC RBC Hgb Hct MCV MCH MCHC RDW Plt Count MPV Immature Gran % (Auto) Neut % (Auto) Lymph % (Auto) [place] % (Auto) Eos % (Auto) Baso % (Auto) Lymph # (Auto) [place] # (Auto) Eos # (Auto) Baso # (Auto) Abs Immat Gran (auto) Absolute Neuts (auto) Absolute Nucleated RBC Nucleated RBC % (auto) Smear Tech's Comments Smear Path Review VBG pH 7.36 VBG pCO2 51 VBG pO2 75 VBG HCO3 29 VBG O2 Saturation 93.0 VBG Base Excess 3.4 Sodium Potassium Chloride Carbon Dioxide Anion Gap BUN Creatinine Estim Creat Clear Calc Estimated GFR POC Glucose 255 H Random Glucose Calcium Phosphorus Magnesium Albumin Microbiology Microbiology Results: Microbiology 05/06/20 16:37 Urine Catheterized - Moser Catheter Urine Culture - Final No growth. 05/06/20 12:03 Sputum - Suctioned Gram Stain - Final 05/06/20 12:03 Sputum - Suctioned Sputum Culture - Final Stenotrophomonas maltophilia 05/06/20 16:38 Blood - Venous Blood Culture - Preliminary No growth after 48 hours. 05/06/20 16:37 Blood - Venous Blood Culture - Preliminary No growth after 48 hours. 05/03/20 16:12 Blood - Venous Blood Culture - Final No growth after 5 days. 05/05/20 10:36 Blood - Venous Blood Culture - Preliminary No growth after 48 hours. 05/05/20 10:36 Blood - Venous Blood Culture - Preliminary No growth after 48 hours. 05/04/20 08:10 Sputum - Suctioned Gram Stain - Final 05/04/20 08:10 Sputum - Suctioned Sputum Culture - Final 05/03/20 16:12 Blood - Venous Blood Culture - Final Corynebacterium species 05/04/20 10:00 Urine Catheterized - Moser Catheter Urine Culture - Final No growth. Progress Note: A&P Assessment and plan (1) ARDS (adult respiratory distress syndrome): Status: Acute Assessment and Plan: Assessment: 49-year-old gentleman with underlying morbid obesity, chronic right-sided congestive heart failure, diabetes mellitus admitted with acute hypoxic respiratory failure secondary to COVID-19 ARDS further complicated by acute renal failure and exacerbation of underlying chronic right-sided congestive heart failure Plan: Neuro: No acute issues. Cardiac: Acute on chronic right-sided congestive heart failure. Continue with diuresis. Goal to maintain net negative 1 to 2 L per 24 hours. Pulmonary: Acute hypoxic respiratory failure secondary to COVID-19 ARDS. Continue to titrate off ventilatory support as tolerated. Underlying chronic hypercapnic respiratory failure secondary to obstructive sleep apnea and obesity hyperventilation support requiring BiPAP support at night. Failed pressure support trial today. Renal: Acute renal failure on the background of chronic renal disease secondary to COVID-19. Non oliguric. Continue to monitor renal indices and urine output. Endo: No acute issues. Underlying diabetes mellitus. GI: No acute issues. ID: COVID 19, continue dexamethasone for total of 10 days. No evidence of bacterial infection, taken off antibiotics. Fevers may still be secondary to underlying COVID-19 or central. Heme/Onc: No acute issues. Psych: No acute issues. Miscellaneous: No acute issues. Prophylaxis: Heparin, ppi Diet: Tube feeds Critical care time spent: 60 minutes (2) COVID-19: Status: Acute (3) Respiratory failure with hypoxia: Status: Acute (4) Obesity hypoventilation syndrome: Status: Acute (5) Morbid obesity: Status: Acute (6) Diabetes mellitus: Status: Acute (7) Chronic kidney disease (CKD) stage G3b/A3, moderately decreased glomerular filtration rate (GFR) between 30-44 mL/min/1.73 square meter and albuminuria creatinine ratio greater than 300 mg/g: Status: Acute Time Spent With Patient Total time spent with greater than 50% in coordination of care (as documented) at patient's floor/unit and/or counseling patient:: 0 Critical Care Time Critical Care Time (minutes): 60
[2020-05-10 12:47] LABS: Glucose, Whole Blood 314 mg/dL (60-115)
--- NOTE | 2020-05-10 12:58 | MHC.CM.PN ---
Patient remains intubated/vented in ICU. Patient is from home with sig other and [employer] through [employer]. Patient was at [facility] in the past. Patient does not want to go to a SNF. Continue to monitor for d/c needs.
--- NOTE | 2020-05-10 14:05 | PC.NURSE ---
pt remains intubated on PC settings, trialed PSV settings today with lowered sedation, back to PC settings around 12:30, pt on propofol at 35mcg and fentynal at 200mcg, pt suctioned inline for small amt thick cream colored secretions, pt intermittently coughing, moves hands occasionally when sedation lowered, promote running at 10ml/hr, pt repositioned to left side and desatted to 82% steadily, pt back to right side, o2 sat 90-93%, humalog coverage as ordered. updated sister Josselin, will cont to monitor
[2020-05-10] MEDS: fentaNYL citrate/NS 1,000 MCG/100 ML PLAST..BAG 20 MCG IVCONT ×3 (14:53→23:05)
[2020-05-10] MEDS: propofoL 1,000 MG/100 ML VIAL 38.64 MG IVCONT ×3 (16:45→22:50)
[2020-05-10 18:23] LABS: Glucose, Whole Blood 328 mg/dL (60-115)
--- NOTE | 2020-05-10 23:56 | PC.NURSE ---
assumed care at 1500. patient sedate on propofol and fentanyl, doserates 35 and 200, positive cough and gag, and pupils reactive and sluggish. Patient tolerating vent, #8 ett, 26 cm gino, PC settings PC 30; rate 22; peep 5; fio2 50% increased to 60%; tidal volumes about 430-460; minute volumes about 12-13. Patient did get a head CT today, negative for acute findings, reviewed by provider. Patient continues to have core temperature readings of 102-7- tmax of 104.5, trended up this shift, provider aware; treating with ice packs currently. upon return from CT, spo2 dropped to 82-85% on 50% fio2, inline suctioned for small amounts of yellowish thin clear sputum. Patient fio2 was increased temporarily to 80% after 2 min of 100% fio2 with good effect, and continued to sat spo2 in 92-94% range.
[2020-05-11] VITALS (34 sets, daily range): BP systolic 100–143; BP diastolic 33–58; PULSE 83–104; RESP 26–94; TEMP 38.6–40.3; O2SAT 88–97; BMI 71.0
[2020-05-11] MEDS: propofoL 1,000 MG/100 ML VIAL 38.64 MG IVCONT ×8 (00:19→23:29)
[2020-05-11] MEDS: Albumin Human 25 % 100 ML IV (00:19)
[2020-05-11] MEDS: Acetaminophen Oral Liquid 650 MG/20.3 ML SOLUTION OG-TUBE ×2 (00:50→07:58)
[2020-05-11] MEDS: Insulin Lispro 100 UNIT/ML 3 ML VIAL SUBCUT ×5 (00:50→23:36)
[2020-05-11 01:52] LABS: Glucose, Whole Blood 326 mg/dL (60-115)
[2020-05-11] MEDS: fentaNYL citrate/NS 1,000 MCG/100 ML PLAST..BAG 30 MCG IVCONT ×4 (02:28→12:55)
[2020-05-11] MEDS: Heparin Sodium,Porcine 5,000 UNIT/ML VIAL 5000 UNIT SUBCUT ×3 (02:29→18:53)
[2020-05-11 05:32] LABS: Hematocrit 25.4 % (42-52); Mean Corpuscular HGB Conc 27.2 g/dl (31.0-36.0); Mean Corpuscular Hemoglobin 30.1 pg (27.0-33.0); Mean Platelet Volume 12.9 fL (9.4-12.4); Red Blood Count 2.29 X10*6/uL (4.60-5.80); Red Cell Distribution Width 16.5 % (11.0-16.0)
[2020-05-11 05:33] LABS: Base Excess VBG 5.5 mmol/L; HCO3 VBG 32 mmol/L; PCO2 VBG 69 mmHg; PO2 VBG 63 mmHg; pH VBG 7.28 (7.32-7.43)
[2020-05-11 05:36] LABS: Mean Corpuscular Volume 110.9 fL (80-98); Platelet Count 68 X10*3/uL (160-400)
[2020-05-11 05:38] LABS: Hemoglobin 6.9 g/dl (14.0-18.0)
[2020-05-11 05:47] LABS: Glucose, Whole Blood 307 mg/dL (60-115)
[2020-05-11 06:15] LABS: Albumin Level 3.5 g/dL (3.5-5.0); Anion Gap 14 (12-20); Blood Urea Nitrogen 64 mg/dL (9-16); Calcium 7.8 mg/dL (8.4-10.2); Carbon Dioxide 27 mmol/L (22-29); Chloride 114 mmol/L (96-108); Creatinine Clr Calc Pharmacy 68.6; Estimated Glomerular Filt Rate 30; Glucose Random 341 mg/dL (60-115); Magnesium 2.9 mg/dL (1.6-2.6); Phosphorus 4.1 mg/dL (2.7-4.5); Potassium 4.9 mmol/l (3.3-5.1); Sodium 150 mmol/L (135-145)
[2020-05-11] MEDS: Furosemide 40 MG/4 ML VIAL 60 MG IVPUSH (07:58)
[2020-05-11] MEDS: Chlorhexidine Gluc Oral Rinse 15 ML MOUTHWASH BUCCAL ×3 (07:58→20:07)
[2020-05-11] MEDS: dexAMETHasone sod phosphate 4 MG/ML VIAL 6 MG IVPUSH (07:58)
[2020-05-11] MEDS: Insulin Glargine,Hum.rec.anlog 100 UNIT/ML 10 ML VIAL 70 UNIT SUBCUT (07:59)
[2020-05-11] MEDS: Artificial Tears Ophth Oint 3.5 GM TUBE 1 APPL EYE-BOTH ×2 (07:59→22:00)
--- NOTE | 2020-05-11 10:08 | P.PNCC_ITS ---
Subjective Subjective Date of Service: 05/11/20 Interval History: 49-year-old gentleman with underlying super morbid obesity, right BKA, diabetes mellitus, right-sided heart failure admitted on 05/03/2020 with acute hypoxic respiratory failure secondary to COVID-19 ARDS (on the background of chronic hypercapnic respiratory failure secondary to underlying obesity hyperventilation syndrome) requiring intubation and ventilatory support. Further complicated by acute renal failure. No events overnight. CT head negative for an acute CVA last night. Physical Exam Vital Signs: Vital Signs: Last Vital Signs Temp 104 F H 05/11/20 09:51 Pulse 95 05/11/20 09:51 Resp 30 H 05/11/20 09:51 BP 139/49 L 05/11/20 09:51 Pulse Ox 90 L 05/11/20 09:00 Body Mass Index 71.0 Const: General: no acute distress Nutritional Appearance: obese Eyes: Sclerae: sclerae normal EOM: EOMs intact bilaterally Neck: Neck: Yes no lymphadenopathy, Yes trachea midline and Yes supple Resp: Auscultation: crackles (Bibasilar) Cardio: Rate: regular rate Rhythm: regular rhythm Heart sounds: no gallops, no murmurs and no rubs GI: Palpation (GI): Soft to palpation and Other GI palpation findings present ( Nontender) Auscultation: normal bowel sounds Extrem: General: No clubbing, No cyanosis and Yes edema (1+ left lower extremity) Objective Data Labs CBC & Chem 7: 05/11/20 05:19 05/11/20 05:19 Labs: Laboratory Results - last 24 hr 05/03/20 05/10/20 05/10/20 16:09 12:15 17:45 WBC RBC Hgb Hct MCV MCH MCHC RDW Plt Count MPV Immature Gran % (Auto) Neut % (Auto) Lymph % (Auto) [place] % (Auto) Eos % (Auto) Baso % (Auto) Lymph # (Auto) [place] # (Auto) Eos # (Auto) Baso # (Auto) Abs Immat Gran (auto) Absolute Neuts (auto) Absolute Nucleated RBC Nucleated RBC % (auto) Smear Path Review SEE NOTE VBG pH VBG pCO2 VBG pO2 VBG HCO3 VBG O2 Saturation VBG Base Excess Sodium Potassium Chloride Carbon Dioxide Anion Gap BUN Creatinine Estim Creat Clear Calc Estimated GFR POC Glucose 314 H 328 H Random Glucose Calcium Phosphorus Magnesium Albumin Blood Type Antibody Screen Crossmatch 05/11/20 05/11/20 05/11/20 00:32 05:19 05:19 WBC 4.0 L RBC 2.29 L Hgb 6.9 L* Hct 25.4 L MCV 110.9 H MCH 30.1 MCHC 27.2 L RDW 16.5 H Plt Count 68 L MPV 12.9 H Immature Gran % (Auto) Cancelled Neut % (Auto) Cancelled Lymph % (Auto) Cancelled [place] % (Auto) Cancelled Eos % (Auto) Cancelled Baso % (Auto) Cancelled Lymph # (Auto) Cancelled [place] # (Auto) Cancelled Eos # (Auto) Cancelled Baso # (Auto) Cancelled Abs Immat Gran (auto) Cancelled Absolute Neuts (auto) Cancelled Absolute Nucleated RBC 0.000 Nucleated RBC % (auto) 0.0 Smear Path Review VBG pH VBG pCO2 VBG pO2 VBG HCO3 VBG O2 Saturation VBG Base Excess Sodium 150 H Potassium 4.9 D Chloride 114 H Carbon Dioxide 27 Anion Gap 14 BUN 64 H Creatinine 2.29 H Estim Creat Clear Calc 68.6 Estimated GFR 30 POC Glucose 326 H Random Glucose 341 H Calcium 7.8 L Phosphorus 4.1 Magnesium 2.9 H Albumin 3.5 Blood Type Antibody Screen Crossmatch 05/11/20 05/11/20 05/11/20 05:19 05:42 06:53 WBC RBC Hgb Hct MCV MCH MCHC RDW Plt Count MPV Immature Gran % (Auto) Neut % (Auto) Lymph % (Auto) [place] % (Auto) Eos % (Auto) Baso % (Auto) Lymph # (Auto) [place] # (Auto) Eos # (Auto) Baso # (Auto) Abs Immat Gran (auto) Absolute Neuts (auto) Absolute Nucleated RBC Nucleated RBC % (auto) Smear Path Review VBG pH 7.28 L VBG pCO2 69 VBG pO2 63 VBG HCO3 32 VBG O2 Saturation 89.0 VBG Base Excess 5.5 Sodium Potassium Chloride Carbon Dioxide Anion Gap BUN Creatinine Estim Creat Clear Calc Estimated GFR POC Glucose 307 H Random Glucose Calcium Phosphorus Magnesium Albumin Blood Type A Negative Antibody Screen NEGATIVE Crossmatch See Detail Microbiology Microbiology Results: Microbiology 05/05/20 10:36 Blood - Venous Blood Culture - Final No growth after 5 days. 05/05/20 10:36 Blood - Venous Blood Culture - Final No growth after 5 days. 05/06/20 16:37 Urine Catheterized - Moser Catheter Urine Culture - Final No growth. 05/06/20 12:03 Sputum - Suctioned Gram Stain - Final 05/06/20 12:03 Sputum - Suctioned Sputum Culture - Final Stenotrophomonas maltophilia 05/06/20 16:38 Blood - Venous Blood Culture - Preliminary No growth after 48 hours. 05/06/20 16:37 Blood - Venous Blood Culture - Preliminary No growth after 48 hours. 05/03/20 16:12 Blood - Venous Blood Culture - Final No growth after 5 days. 05/04/20 08:10 Sputum - Suctioned Gram Stain - Final 05/04/20 08:10 Sputum - Suctioned Sputum Culture - Final 05/03/20 16:12 Blood - Venous Blood Culture - Final Corynebacterium species 05/04/20 10:00 Urine Catheterized - Moser Catheter Urine Culture - Final No growth. Progress Note: A&P Assessment and plan (1) ARDS (adult respiratory distress syndrome): Status: Acute Assessment and Plan: Assessment: 49-year-old gentleman with underlying morbid obesity, chronic r ight-sided congestive heart failure, diabetes mellitus admitted with acute hypoxic respiratory failure secondary to COVID-19 ARDS further complicated by acute renal failure and exacerbation of underlying chronic right-sided congestive heart failure Plan: Neuro: CT head negative for CVA on 05/10/2020. Cardiac: Acute on chronic right-sided congestive heart failure. Pulmonary: Acute hypoxic respiratory failure secondary to COVID-19 ARDS. Continue to titrate off ventilatory support as tolerated. Underlying chronic hypercapnic respiratory failure secondary to obstructive sleep apnea and obesity hyperventilation support requiring BiPAP support at night. Renal: Acute renal failure on the background of chronic renal disease secondary to COVID-19. Non oliguric. Continue to monitor renal indices and urine output. Lasix held. Endo: No acute issues. Underlying diabetes mellitus. GI: No acute issues. ID: COVID 19, continue dexamethasone for total of 10 days. Stenotrophomonas in sputum, no evidence of clinical pneumonia, will empirically covered with nebulized tobramycin secondary to persistent fevers. Heme/Onc: No acute issues. Psych: No acute issues. Miscellaneous: No acute issues. Prophylaxis: Heparin, ppi Diet: Tube feeds Critical care time spent: 60 minutes (2) COVID-19: Status: Acute (3) Respiratory failure with hypoxia: Status: Acute (4) JOSE (acute kidney injury): Status: Acute (5) Acute on chronic right heart failure: Status: Acute (6) Morbid obesity: Status: Acute (7) Diabetes mellitus: Status: Acute Time Spent With Patient Total time spent with greater than 50% in coordination of care (as documented) at patient's floor/unit and/or counseling patient:: 0 Critical Care Time Critical Care Time (minutes): 60
[2020-05-11] MEDS: propofoL 1,000 MG/100 ML VIAL 27.6 MG IVCONT ×2 (10:57→21:30)
[2020-05-11] MEDS: Tobramycin Sulfate 80 MG/2 ML VIAL 300 MG INHALE ×2 (11:21→22:35)
[2020-05-11 12:23] LABS: Glucose, Whole Blood 383 mg/dL (60-115)
--- NOTE | 2020-05-11 13:26 | PC.NURSE ---
pt remains intubated on PC settings fio2 50%, scant amt of thick secretions inline, mouth care done, pt remains on fentynal and propofol, sedation vacation this am, pt did not wake or follow any commands, pt does have positive cough and gag, and yawned during sedation vacation, temp remains elevated, borrowed cooling blanket from ED, applied ice packs, tube feed changed to glucerna 30ml/hr max, lee packets BID, stage 2 to coccyx & buttocks, cream applied, patient bathed and repositioned, sheets and pad changed, crowder remains intact, rectal tube intact, pt recieved 1 unit RBC's for low hemoglobin, to update sister Josselin, will cont to monitor
[2020-05-11] MEDS: fentaNYL citrate/NS 1,000 MCG/100 ML PLAST..BAG 29 MCG IVCONT (15:39)
[2020-05-11 18:54] LABS: Glucose, Whole Blood 358 mg/dL (60-115)
[2020-05-11] MEDS: cefEPime HCl 1 GM in 0.9 % Sodium Chloride 50 ML IV (20:07)
[2020-05-11] MEDS: fentaNYL citrate/NS 1,000 MCG/100 ML PLAST..BAG 18 MCG IVCONT (20:08)
[2020-05-11 23:54] LABS: Glucose, Whole Blood 364 mg/dL (60-115)
[2020-05-12] VITALS (32 sets, daily range): BP systolic 89–155; BP diastolic 31–57; PULSE 74–94; RESP 24–32; TEMP 38.5–39.3; O2SAT 88–96; BMI 67.0
--- NOTE | 2020-05-12 | XR_ITS ---
EXAMINATION: XR CHEST CLINICAL INFORMATION: Hypoxia COMPARISON: 05/10/2020 TECHNIQUE: Frontal view of the chest was obtained. FINDINGS: Right IJ central venous catheter has been adjusted slightly as compared to prior, terminating in the region of the confluence with the SVC. The ET tube terminates 5 cm from the valerie. The distal margin of the enteric tube is not well seen on these images. Diffuse patchy airspace opacities are again seen throughout both lungs, unchanged from prior. Cardiac meniscal contours are unchanged. No pneumothorax or pleural effusion. No acute osseous findings. XR/XR chest 1V IMPRESSION: ET tube terminates 5 cm above the valerie. Right IJ central venous catheter tip note terminates near the confluence of the internal jugular and SVC. Unchanged diffuse patchy bilateral airspace opacities
[2020-05-12] MEDS: fentaNYL citrate/NS 1,000 MCG/100 ML PLAST..BAG 20 MCG IVCONT ×5 (01:29→19:32)
[2020-05-12] MEDS: Heparin Sodium,Porcine 5,000 UNIT/ML VIAL 5000 UNIT SUBCUT ×3 (01:30→17:36)
[2020-05-12] MEDS: propofoL 1,000 MG/100 ML VIAL 38.64 MG IVCONT ×9 (02:18→22:35)
[2020-05-12] MEDS: Furosemide 20 MG/2 ML VIAL IVPUSH (02:18)
--- NOTE | 2020-05-12 02:38 | PC.NURSE ---
Addendum entered by Sam Robles RN 05/12/20 06:34: am labs show serum glucose critically high, poc was in 300's; covered per sliding scale per net programmer. Patient had been demonstrating EtCo2 of about 61-62 around 04:00-05:00 AM, and discussed with MANAGER POST and RT, and vent settings were adjusted by increasing rate from 22 to 28. EtCO2 came down to 52. Patient also has not made urine through 6 am, and now there is a very small amount of urine in crowder. Morning VBGs show critically low pH of 7.16; MANAGER POST aware, and new vent settings need time to take effect; continuing to monitor carefully. Original Note: assumed care at 15:00. patient was sedate on propofol and fentanyl gtts, doserates were 300 and 35 respectively. Patient pupils reactive and sluggish, positive cough and gag. Discussed max doserate with MD, and verified 200 as max, and titrated to 200 per MD. Attempted to titirate down the propofol to 25, and the fentanyl to 180, but patient was displaying tachypnea, overbreathing vent set rate of 22, up to RR of about 29-31, so propofol is now at 35, and fentnayl at 200. Patient remains intubated with #8 Ett, 26 cm gino, PC settings with pressure of 30; set rate 22; peep 5; fio2 55%; patient mostly pulling tidal volumes around 430-470, with occasional variations; minute volumes around 11-13. Patient Spo2 has been in the 90-95% range, requiring occasional 2 minutes of 100% fio2 around repositioning. Patient with lung sounds varying from rhonchi to fine crackles throughout with dim bases. Patient with inline secretions thin, small, clear. Found to have low urine outputs: starting with average of 40/hour around 1500. dwindling to around 20/hour, and then 0 cc/hour around 1:00 AM; MANAGER POST aware and one time dose of 20 mg lasix ordered and given with results pending. Urine outputs 0 through 1 to 3 am; MANAGER POST aware. Patient end tidal CO2 was in 55-57 range this afternoon, then was lower with increased sedation, but is now 61-63; discussed with MANAGER POST and RT, and plan is to continue to monitor until morning, may need HD. BP was soft, with MAP goal of 60 not being met, and low diastolic bp 30-38; MANAGER POST aware, patient started on levofed and MAP >60 now. Patient with temperature of 103.9 at 15:00, down to 101.3 now. Wound on buttocks has slough in wound bed, unstageable, slight serosanguineous drainage.
[2020-05-12 05:22] LABS: PCO2 VBG 92 mmHg
[2020-05-12 05:23] LABS: Base Excess VBG 3.3 mmol/L; HCO3 VBG 33 mmol/L; PO2 VBG 99 mmHg
[2020-05-12 05:24] LABS: pH VBG 7.16 (7.32-7.43)
[2020-05-12 05:26] LABS: Basophils Percent Auto 0.5 % (0-2); Eosinophils Absolute Auto 0.1 X10*3/uL (0.0-0.4); Eosinophils Percent Auto 1.3 % (0-4); Hematocrit 28.3 % (42-52); Hemoglobin 7.8 g/dl (14.0-18.0); Imm Gran Abs Auto 0.05 X10*3/uL (0.00-0.03); Imm Gran Pct Auto 0.8 % (0.0-0.4); Lymphocytes Absolute Auto 0.5 X10*3/uL (1.2-4.9); Lymphocytes Percent Auto 7.9 % (20-40); MANUAL DIFF FLAG SCAN; Mean Corpuscular HGB Conc 27.6 g/dl (31.0-36.0); Mean Corpuscular Hemoglobin 30.5 pg (27.0-33.0); Mean Platelet Volume 12.9 fL (9.4-12.4); Monocytes Absolute Auto 0.4 X10*3/uL (0.1-1.2); NRBC Pct Auto 0.7 /100WBC (0.0-0.2); Neutrophils Absolute Auto 4.9 X10*3/uL (2.0-8.3); Neutrophils Percent Auto 82.5 % (45-73); Red Blood Count 2.56 X10*6/uL (4.60-5.80); Red Cell Distribution Width 17.2 % (11.0-16.0); SCAN SMEAR FLAG 1
[2020-05-12] MEDS: Insulin Lispro 100 UNIT/ML 3 ML VIAL SUBCUT ×2 (05:36→11:24)
[2020-05-12 05:38] LABS: Mean Corpuscular Volume 110.5 fL (80-98); Platelet Count 74 X10*3/uL (160-400)
[2020-05-12 05:44] LABS: Albumin Level 3.6 g/dL (3.5-5.0); Anion Gap 16 (12-20); Blood Urea Nitrogen 87 mg/dL (9-16); Calcium 7.9 mg/dL (8.4-10.2); Carbon Dioxide 25 mmol/L (22-29); Chloride 110 mmol/L (96-108); Estimated Glomerular Filt Rate 16; Glucose Random 415 mg/dL (60-115); Magnesium 3.1 mg/dL (1.6-2.6); Phosphorus 7.4 mg/dL (2.7-4.5); Potassium 5.8 mmol/L (3.3-5.1); Sodium 145 mmol/L (135-145)
[2020-05-12 06:08] LABS: SLIDE REVIEW VERIFIED
[2020-05-12 06:12] LABS: Glucose, Whole Blood 335 mg/dL (60-115)
[2020-05-12] MEDS: Chlorhexidine Gluc Oral Rinse 15 ML MOUTHWASH BUCCAL ×3 (07:45→19:32)
[2020-05-12] MEDS: Insulin Glargine,Hum.rec.anlog 100 UNIT/ML 10 ML VIAL SUBCUT (07:45)
[2020-05-12] MEDS: dexAMETHasone sod phosphate 4 MG/ML VIAL 6 MG IVPUSH (07:46)
[2020-05-12] MEDS: Artificial Tears Ophth Oint 3.5 GM TUBE 1 APPL EYE-BOTH ×2 (07:47→19:32)
[2020-05-12 10:12] LABS: Base Excess VBG 0.2 mmol/L; HCO3 VBG 28 mmol/L; PCO2 VBG 66 mmHg; PO2 VBG 122 mmHg; pH VBG 7.23 (7.32-7.43)
--- NOTE | 2020-05-12 10:40 | P.PNCC_ITS ---
Subjective Subjective Date of Service: 05/12/20 Interval History: 49-year-old gentleman with underlying super morbid obesity, right BKA, diabetes mellitus, right-sided heart failure admitted on 05/03/2020 with acute hypoxic respiratory failure secondary to COVID-19 ARDS (on the background of chronic hypercapnic respiratory failure secondary to underlying obesity hyperventilation syndrome) requiring intubation and ventilatory support. Further complicated by acute renal failure. Overnight with worsening urine output and increased CO2 retention. Physical Exam Vital Signs: Vital Signs: Last Vital Signs Temp 101.8 F H 05/12/20 08:55 Pulse 86 05/12/20 09:57 Resp 32 H 05/12/20 09:57 BP 129/42 L 05/12/20 09:57 Pulse Ox 92 05/12/20 09:57 Body Mass Index 67.0 Const: General: no acute distress and other (Sedated on the vent) Eyes: Sclerae: sclerae normal Neck: Neck: Yes no lymphadenopathy, Yes trachea midline and Yes supple Resp: Auscultation: crackles (Diffuse bilateral) Cardio: Rate: regular rate Rhythm: regular rhythm Heart sounds: no gallops, no murmurs and no rubs GI: Palpation (GI): Soft to palpation and Other GI palpation findings present ( Nontender) Auscultation: normal bowel sounds Extrem: General: No clubbing, No cyanosis and Yes edema (1+ left lower) Objective Data Labs CBC & Chem 7: 05/12/20 05:06 05/12/20 05:06 Labs: Laboratory Results - last 24 hr 05/11/20 05/11/20 05/11/20 06:53 11:58 18:30 WBC RBC Hgb Hct MCV MCH MCHC RDW Plt Count MPV Immature Gran % (Auto) Neut % (Auto) Lymph % (Auto) [place] % (Auto) Eos % (Auto) Baso % (Auto) Lymph # (Auto) [place] # (Auto) Eos # (Auto) Baso # (Auto) Abs Immat Gran (auto) Absolute Neuts (auto) Absolute Nucleated RBC Nucleated RBC % (auto) Smear Tech's Comments VBG pH VBG pCO2 VBG pO2 VBG HCO3 VBG O2 Saturation VBG Base Excess Sodium Potassium Chloride Carbon Dioxide Anion Gap BUN Creatinine Estim Creat Clear Calc Estimated GFR POC Glucose 383 H* 358 H* Random Glucose Calcium Phosphorus Magnesium Albumin Crossmatch See Detail 05/11/20 05/12/20 05/12/20 23:32 05:06 05:06 WBC 6.0 RBC 2.56 L Hgb 7.8 L Hct 28.3 L MCV 110.5 H MCH 30.5 MCHC 27.6 L RDW 17.2 H Plt Count 74 L MPV 12.9 H Immature Gran % (Auto) 0.8 H Neut % (Auto) 82.5 H Lymph % (Auto) 7.9 L [place] % (Auto) 7.0 Eos % (Auto) 1.3 Baso % (Auto) 0.5 Lymph # (Auto) 0.5 L [place] # (Auto) 0.4 Eos # (Auto) 0.1 Baso # (Auto) 0.0 Abs Immat Gran (auto) 0.05 H Absolute Neuts (auto) 4.9 Absolute Nucleated RBC 0.040 H Nucleated RBC % (auto) 0.7 H Smear Tech's Comments VERIFIED VBG pH VBG pCO2 VBG pO2 VBG HCO3 VBG O2 Saturation VBG Base Excess Sodium 145 Potassium 5.8 H Chloride 110 H Carbon Dioxide 25 Anion Gap 16 BUN 87 H* D Creatinine 3.93 H Estim Creat Clear Calc 40.0 Estimated GFR 16 POC Glucose 364 H* Random Glucose 415 H* Calcium 7.9 L Phosphorus 7.4 H Magnesium 3.1 H Albumin 3.6 Crossmatch 05/12/20 05/12/20 05/12/20 05:06 05:32 10:01 WBC RBC Hgb Hct MCV MCH MCHC RDW Plt Count MPV Immature Gran % (Auto) Neut % (Auto) Lymph % (Auto) [place] % (Auto) Eos % (Auto) Baso % (Auto) Lymph # (Auto) [place] # (Auto) Eos # (Auto) Baso # (Auto) Abs Immat Gran (auto) Absolute Neuts (auto) Absolute Nucleated RBC Nucleated RBC % (auto) Smear Tech's Comments VBG pH 7.16 L* 7.23 L VBG pCO2 92 66 VBG pO2 99 122 VBG HCO3 33 28 VBG O2 Saturation 95.0 97.0 VBG Base Excess 3.3 0.2 Sodium Potassium Chloride Carbon Dioxide Anion Gap BUN Creatinine Estim Creat Clear Calc Estimated GFR POC Glucose 335 H Random Glucose Calcium Phosphorus Magnesium Albumin Crossmatch Microbiology Microbiology Results: Microbiology 05/06/20 16:38 Blood - Venous Blood Culture - Final No growth after 5 days. 05/06/20 16:37 Blood - Venous Blood Culture - Final No growth after 5 days. 05/05/20 10:36 Blood - Venous Blood Culture - Final No growth after 5 days. 05/05/20 10:36 Blood - Venous Blood Culture - Final No growth after 5 days. 05/06/20 16:37 Urine Catheterized - Moser Catheter Urine Culture - Final No growth. 05/06/20 12:03 Sputum - Suctioned Gram Stain - Final 05/06/20 12:03 Sputum - Suctioned Sputum Culture - Final Stenotrophomonas maltophilia 05/03/20 16:12 Blood - Venous Blood Culture - Final No growth after 5 days. 05/04/20 08:10 Sputum - Suctioned Gram Stain - Final 05/04/20 08:10 Sputum - Suctioned Sputum Culture - Final 05/03/20 16:12 Blood - Venous Blood Culture - Final Corynebacterium species 05/04/20 10:00 Urine Catheterized - Moser Catheter Urine Culture - Final No growth. Progress Note: A&P Assessment and plan (1) ARDS (adult respiratory distress syndrome): Status: Acute Assessment and Plan: Assessment: 49-year-old gentleman with underlying morbid obesity, chronic right-sided congestive heart failure, diabetes mellitus admitted with acute hypoxic respiratory failure secondary to COVID-19 ARDS further complicated by acute renal failure and exacerbation of underlying chronic right-sided congestive heart failure Plan: Neuro: CT head negative for CVA on 05/10/2020. Cardiac: Acute on chronic right-sided congestive heart failure. Diuresis held secondary to worsening function. Pulmonary: Acute hypoxic respiratory failure secondary to COVID-19 ARDS. Continue to titrate off ventilatory support as tolerated. Underlying chronic hypercapnic respiratory failure secondary to obstructive sleep apnea and obesity hyperventilation support requiring BiPAP support at night. Renal: Acute renal failure on the background of chronic renal disease secondary to COVID-19. Non oliguric. Continue to monitor renal indices and urine output. May require hemodialysis. Endo: No acute issues. Underlying diabetes mellitus. GI: No acute issues. ID: COVID 19, continue dexamethasone for total of 10 days. Stenotrophomonas in sputum, no evidence of clinical pneumonia, empirically covered with nebulized tobramycin secondary to persistent fevers. Heme/Onc: No acute issues. Psych: No acute issues. Miscellaneous: No acute issues. Prophylaxis: Heparin, ppi Diet: Tube feeds Critical care time spent: 60 minutes (2) COVID-19: Status: Acute (3) Respiratory failure with hypoxia: Status: Acute (4) Acute on chronic right heart failure: Status: Acute (5) JOSE (acute kidney injury): Status: Acute (6) Morbid obesity: Status: Acute (7) Diabetes mellitus: Status: Acute (8) Obesity hypoventilation syndrome: Status: Acute Time Spent With Patient Total time spent with greater than 50% in coordination of care (as documented) at patient's floor/unit and/or counseling patient:: 0 Critical Care Time Critical Care Time (minutes): 60
[2020-05-12] MEDS: Tobramycin Sulfate 80 MG/2 ML VIAL 300 MG INHALE ×2 (10:52→22:23)
[2020-05-12 11:35] LABS: Glucose, Whole Blood 394 mg/dL (60-115)
[2020-05-12 12:36] LABS: Glucose, Whole Blood 427 mg/dL (60-115)
[2020-05-12 12:36] LABS: Glucose, Whole Blood 451 mg/dL (60-115)
[2020-05-12] MEDS: Insulin Regular, Human 100 UNIT/ML 3 ML VIAL 10 UNIT IVPUSH (12:56)
[2020-05-12] MEDS: Insulin Regular/NS 100 UNIT/100 ML PLAST..BAG IVCONT (12:57)
--- NOTE | 2020-05-12 14:38 | MHC.CM.PN ---
Pt continues in ICU with COVID: He is vented and in renal failure. His condition remains guarded - sedation vacation on 05/11 - no immediate plans for extubation Original d/c plan was home with existing supports and services but this seems unlikely given pt's prolonged ICU stay and pre existing conditions. CM will follow for d/c planning: will need a clearer understanding of pts functional needs to correctly assist with disposition
[2020-05-12 15:01] LABS: Glucose, Whole Blood 432 mg/dL (60-115)
[2020-05-12 15:01] LABS: Glucose, Whole Blood 411 mg/dL (60-115)
[2020-05-12 15:09] LABS: Anion Gap 19 (12-20); Blood Urea Nitrogen 97 mg/dL (9-16); Calcium 7.8 mg/dL (8.4-10.2); Carbon Dioxide 21 mmol/L (22-29); Chloride 109 mmol/L (96-108); Creatinine Clr Calc Pharmacy 32.6; Estimated Glomerular Filt Rate 13; Glucose Random 479 mg/dL (60-115); Potassium 5.3 mmol/L (3.3-5.1); Sodium 144 mmol/L (135-145)
[2020-05-12 16:17] LABS: Glucose, Whole Blood 363 mg/dL (60-115)
--- NOTE | 2020-05-12 16:31 | PC.NURSE ---
0800 Pt intubated and sedated, propofol at 35mcg/kg/min, fentanyl at 200mcg/hr, vent settings pressure control 28, I pressure 30, PEEP 5, FiO2 55%, SaO2 87-91%, ETCO2 Tv 400, min. vol. 11.8L/min, pt slightly breathing over vent. VBG this AM 7.16/92/99/33/95.0. Inspiratory/expiratory rhonchi all lobes, suctioned for thick lynn/brown secretions inline. 0910 Vent settings changed to AC VC Rate 32, TV 500, FiO2 40%, ETCO2 changed to 42. Repeat VBG 7.23/66/122/28/97.0. MD made aware of K 5.8, MG++ 3.1, PHOS 7.4, trending up with BUN/Cr 87/3.93 (low urine output 35ml since 0200 dose lasix 20mg). Tube feedings glucerna reduced to 20ml/hr to help reduce CO2 build up per MD, 300ml free water and Juvin supplement given at 1200, residuls all day 5ml-10ml. Started on insulin drip at 1305 at 5U/hr after 10U bolus for blood sugars 427mg/dL. Titrated to 7U/hr. Got 100 Lantus this AM and 10units Lispro. Temp high of 103, on cooling blanket and packed with ice, down to 102.2 now. Pt extremity movement flaccid, does bite vent bite block at times, right pupil fixed, MD aware. Urine output cloudy dark yellow 109ml from [id number]. Pt is NSR 80-90, no ectopy, SBP 119-146 DBP 30-50s MAP goal >60mmHg, on levophed at 0.04mcg/kg/min. Positive bowel sounds x4Q, no BM this shift, rectal tube in place. Unstageable bilat buttocks pressure injury, small sanguineous drainage, cleaned and barrier cream applied, fungal rash to bilat groin R>L and ABD fold with small open areas, powder applied. Left lower extremity dorsalis pedis pulse by doppler, dusky discoloration, grooved with a moreau crack with no draingage, right superior eye sclera with small blood pocket. Repeat chemistries K 5.3 trending down, BUN/Cr worsening crit at 97/4.63, MD aware. Bed locked and in lowest position.
[2020-05-12 17:27] LABS: Glucose, Whole Blood 359 mg/dL (60-115)
[2020-05-12 18:26] LABS: Glucose, Whole Blood 356 mg/dL (60-115)
[2020-05-12 19:17] LABS: Glucose, Whole Blood 343 mg/dL (60-115)
[2020-05-12 19:37] LABS: Vancomycin Random 10.4 mcg/mL (15-20)
[2020-05-12] MEDS: Insulin Regular/NS 100 UNIT/100 ML PLAST..BAG 10 UNIT IVCONT (19:43)
[2020-05-12 20:07] LABS: Glucose, Whole Blood 379 mg/dL (60-115)
[2020-05-12 22:12] LABS: Glucose, Whole Blood 306 mg/dL (60-115)
[2020-05-12 22:12] LABS: Glucose, Whole Blood 287 mg/dL (60-115)
[2020-05-12 23:38] LABS: Glucose, Whole Blood 285 mg/dL (60-115)
[2020-05-13] VITALS (27 sets, daily range): BP systolic 82–136; BP diastolic 35–56; PULSE 71–97; RESP 29–32; TEMP 37.7–38.6; O2SAT 91–98; BMI 68.0
[2020-05-13 01:16] LABS: Glucose, Whole Blood 246 mg/dL (60-115)
[2020-05-13] MEDS: Heparin Sodium,Porcine 5,000 UNIT/ML VIAL 5000 UNIT SUBCUT ×3 (01:26→17:10)
[2020-05-13] MEDS: propofoL 1,000 MG/100 ML VIAL 38.64 MG IVCONT ×9 (01:26→22:05)
[2020-05-13 02:06] LABS: Glucose, Whole Blood 248 mg/dL (60-115)
[2020-05-13 03:30] LABS: Glucose, Whole Blood 228 mg/dL (60-115)
[2020-05-13] MEDS: fentaNYL citrate/NS 1,000 MCG/100 ML PLAST..BAG 20 MCG IVCONT ×5 (04:03→23:05)
[2020-05-13 04:37] LABS: Glucose, Whole Blood 216 mg/dL (60-115)
[2020-05-13] MEDS: Insulin Regular/NS 100 UNIT/100 ML PLAST..BAG 13 UNIT IVCONT ×3 (05:00→17:11)
[2020-05-13 05:04] LABS: Base Excess VBG 0.4 mmol/L; HCO3 VBG 26 mmol/L; PCO2 VBG 49 mmHg; PO2 VBG 112 mmHg; pH VBG 7.33 (7.32-7.43)
[2020-05-13 05:11] LABS: Basophils Percent Auto 0.6 % (0-2); Eosinophils Absolute Auto 0.1 X10*3/uL (0.0-0.4); Eosinophils Percent Auto 3.6 % (0-4); Hematocrit 24.1 % (42-52); Hemoglobin 7.1 g/dl (14.0-18.0); Imm Gran Abs Auto 0.03 X10*3/uL (0.00-0.03); Imm Gran Pct Auto 0.9 % (0.0-0.4); Lymphocytes Absolute Auto 0.3 X10*3/uL (1.2-4.9); Lymphocytes Percent Auto 9.9 % (20-40); MANUAL DIFF FLAG SCAN; Mean Corpuscular HGB Conc 29.5 g/dl (31.0-36.0); Mean Corpuscular Hemoglobin 30.5 pg (27.0-33.0); Mean Corpuscular Volume 103.4 fL (80-98); Mean Platelet Volume 12.6 fL (9.4-12.4); Monocytes Absolute Auto 0.2 X10*3/uL (0.1-1.2); Monocytes Percent Auto 6.9 % (2-11); Neutrophils Absolute Auto 2.6 X10*3/uL (2.0-8.3); Neutrophils Percent Auto 78.1 % (45-73); Red Blood Count 2.33 X10*6/uL (4.60-5.80); Red Cell Distribution Width 16.3 % (11.0-16.0); SCAN SMEAR FLAG 1; White Blood Count 3.3 X10*3/uL (4.8-10.8)
[2020-05-13 05:18] LABS: NRBC Pct Auto 1.2 /100WBC (0.0-0.2); Platelet Count 84 X10*3/uL (160-400)
[2020-05-13 05:43] LABS: Glucose, Whole Blood 206 mg/dL (60-115)
[2020-05-13 05:54] LABS: Anion Gap 18 (12-20); Blood Urea Nitrogen 107 mg/dL (9-16); Calcium 7.6 mg/dL (8.4-10.2); Carbon Dioxide 21 mmol/L (22-29); Chloride 111 mmol/L (96-108); Creatinine Clr Calc Pharmacy 27.9; Estimated Glomerular Filt Rate 11; Glucose Random 241 mg/dL (60-115); Phosphorus 5.7 mg/dL (2.7-4.5); Potassium 4.6 mmol/L (3.3-5.1); SLIDE REVIEW VERIFIED; Sodium 145 mmol/L (135-145)
[2020-05-13 06:22] LABS: Glucose, Whole Blood 189 mg/dL (60-115)
[2020-05-13 06:41] LABS: INTERNATIONAL NORM RATIO 1.3 (0.9-1.1)
[2020-05-13] MEDS: Chlorhexidine Gluc Oral Rinse 15 ML MOUTHWASH BUCCAL ×3 (07:30→19:42)
[2020-05-13 07:44] LABS: Glucose, Whole Blood 186 mg/dL (60-115)
[2020-05-13] MEDS: Artificial Tears Ophth Oint 3.5 GM TUBE 1 APPL EYE-BOTH ×2 (08:36→20:14)
--- NOTE | 2020-05-13 09:15 | ECG_ITS ---
Test Reason : Rhythm changes Blood Pressure : / mmHG Vent. Rate : 074 BPM Atrial Rate : 074 BPM P-R Int : 136 ms QRS Dur : 082 ms QT Int : 370 ms P-R-T Axes : 005 039 -81 degrees QTc Int : 410 ms Normal sinus rhythm T wave abnormality, consider inferolateral ischemia Abnormal ECG When compared to the previous EKG of Inferolateral T wave changes noted Referred By: Juan Lyons Electronically Signed By:OXANA PEDERSEN MD
--- NOTE | 2020-05-13 09:46 | PM.CCPN ---
Subjective Subjective Date of Service: 05/13/20 Interval History: ICU day 10 for acute hypoxic respiratory failure secondary to COVID-19 ARDS further complicated by acute renal failure. 49-year-old gentleman with underlying super morbid obesity, right BKA, diabetes mellitus, right-sided heart failure admitted on 05/03/2020 with acute hypoxic respiratory failure secondary to COVID-19 ARDS (on the background of chronic hypercapnic respiratory failure secondary to underlying obesity hyperventilation syndrome) requiring intubation and ventilatory support. Further complicated by acute renal failure. Has completed dexamethasone course. No events overnight. Urine output with small improvement. Worsening anasarca. Physical Exam Vital Signs: Vital Signs: Last Vital Signs Temp 101.0 F H 05/13/20 07:00 Pulse 74 05/13/20 09:00 Resp 32 H 05/13/20 09:00 BP 123/51 L 05/13/20 09:00 Pulse Ox 95 05/13/20 09:00 Body Mass Index 68.0 Const: General: no acute distress and other (Sedated on the vent, anasarca) Nutritional Appearance: obese Eyes: Sclerae: scleral abnormal (Bilateral scleral edema) Neck: Neck: Yes no lymphadenopathy, Yes trachea midline and Yes supple Resp: Auscultation: crackles (Diffuse bilateral) Cardio: Rate: regular rate Rhythm: regular rhythm Heart sounds: no gallops, no murmurs and no rubs GI: Palpation (GI): Soft to palpation and Other GI palpation findings present ( Nontender) Auscultation: normal bowel sounds Extrem: General: No clubbing, No cyanosis and Yes edema (1+ left lower extremity) Objective Data Labs CBC & Chem 7: 05/13/20 04:55 05/13/20 04:55 Labs: Laboratory Results - last 24 hr 05/12/20 05/12/20 05/12/20 10:01 11:19 12:24 WBC RBC Hgb Hct MCV MCH MCHC RDW Plt Count MPV Immature Gran % (Auto) Neut % (Auto) Lymph % (Auto) Gooding % (Auto) Eos % (Auto) Baso % (Auto) Lymph # (Auto) Gooding # (Auto) Eos # (Auto) Baso # (Auto) Abs Immat Gran (auto) Absolute Neuts (auto) Absolute Nucleated RBC Nucleated RBC % (auto) Smear Tech's Comments PT INR VBG pH 7.23 L VBG pCO2 66 VBG pO2 122 VBG HCO3 28 VBG O2 Saturation 97.0 VBG Base Excess 0.2 Sodium Potassium Chloride Carbon Dioxide Anion Gap BUN Creatinine Estim Creat Clear Calc Estimated GFR POC Glucose 394 H* 451 H* Random Glucose Calcium Phosphorus Magnesium Albumin Random Vancomycin 05/12/20 05/12/20 05/12/20 12:27 14:09 14:16 WBC RBC Hgb Hct MCV MCH MCHC RDW Plt Count MPV Immature Gran % (Auto) Neut % (Auto) Lymph % (Auto) Gooding % (Auto) Eos % (Auto) Baso % (Auto) Lymph # (Auto) Gooding # (Auto) Eos # (Auto) Baso # (Auto) Abs Immat Gran (auto) Absolute Neuts (auto) Absolute Nucleated RBC Nucleated RBC % (auto) Smear Tech's Comments PT INR VBG pH VBG pCO2 VBG pO2 VBG HCO3 VBG O2 Saturation VBG Base Excess Sodium 144 Potassium 5.3 H Chloride 109 H Carbon Dioxide 21 L Anion Gap 19 BUN 97 H* Creatinine 4.63 H* Estim Creat Clear Calc 32.6 Estimated GFR 13 POC Glucose 427 H* 432 H* Random Glucose 479 H* Calcium 7.8 L Phosphorus Magnesium Albumin Random Vancomycin 05/12/20 05/12/20 05/12/20 14:56 16:05 17:06 WBC RBC Hgb Hct MCV MCH MCHC RDW Plt Count MPV Immature Gran % (Auto) Neut % (Auto) Lymph % (Auto) Gooding % (Auto) Eos % (Auto) Baso % (Auto) Lymph # (Auto) Gooding # (Auto) Eos # (Auto) Baso # (Auto) Abs Immat Gran (auto) Absolute Neuts (auto) Absolute Nucleated RBC Nucleated RBC % (auto) Smear Tech's Comments PT INR VBG pH VBG pCO2 VBG pO2 VBG HCO3 VBG O2 Saturation VBG Base Excess Sodium Potassium Chloride Carbon Dioxide Anion Gap BUN Creatinine Estim Creat Clear Calc Estimated GFR POC Glucose 411 H* 363 H* 359 H* Random Glucose Calcium Phosphorus Magnesium Albumin Random Vancomycin 05/12/20 05/12/20 05/12/20 18:14 18:54 19:09 WBC RBC Hgb Hct MCV MCH MCHC RDW Plt Count MPV Immature Gran % (Auto) Neut % (Auto) Lymph % (Auto) Gooding % (Auto) Eos % (Auto) Baso % (Auto) Lymph # (Auto) Gooding # (Auto) Eos # (Auto) Baso # (Auto) Abs Immat Gran (auto) Absolute Neuts (auto) Absolute Nucleated RBC Nucleated RBC % (auto) Smear Tech's Comments PT INR VBG pH VBG pCO2 VBG pO2 VBG HCO3 VBG O2 Saturation VBG Base Excess Sodium Potassium Chloride Carbon Dioxide Anion Gap BUN Creatinine Estim Creat Clear Calc Estimated GFR POC Glucose 356 H* 343 H Random Glucose Calcium Phosphorus Magnesium Albumin Random Vancomycin 10.4 L 05/12/20 05/12/20 05/12/20 19:45 21:17 22:07 WBC RBC Hgb Hct MCV MCH MCHC RDW Plt Count MPV Immature Gran % (Auto) Neut % (Auto) Lymph % (Auto) Gooding % (Auto) Eos % (Auto) Baso % (Auto) Lymph # (Auto) Gooding # (Auto) Eos # (Auto) Baso # (Auto) Abs Immat Gran (auto) Absolute Neuts (auto) Absolute Nucleated RBC Nucleated RBC % (auto) Smear Tech's Comments PT INR VBG pH VBG pCO2 VBG pO2 VBG HCO3 VBG O2 Saturation VBG Base Excess Sodium Potassium Chloride Carbon Dioxide Anion Gap BUN Creatinine Estim Creat Clear Calc Estimated GFR POC Glucose 379 H* 287 H 306 H Random Glucose Calcium Phosphorus Magnesium Albumin Random Vancomycin 05/12/20 05/13/20 05/13/20 23:28 01:10 02:00 WBC RBC Hgb Hct MCV MCH MCHC RDW Plt Count MPV Immature Gran % (Auto) Neut % (Auto) Lymph % (Auto) Gooding % (Auto) Eos % (Auto) Baso % (Auto) Lymph # (Auto) Gooding # (Auto) Eos # (Auto) Baso # (Auto) Abs Immat Gran (auto) Absolute Neuts (auto) Absolute Nucleated RBC Nucleated RBC % (auto) Smear Tech's Comments PT INR VBG pH VBG pCO2 VBG pO2 VBG HCO3 VBG O2 Saturation VBG Base Excess Sodium Potassium Chloride Carbon Dioxide Anion Gap BUN Creatinine Estim Creat Clear Calc Estimated GFR POC Glucose 285 H 246 H 248 H Random Glucose Calcium Phosphorus Magnesium Albumin Random Vancomycin 05/13/20 05/13/20 05/13/20 03:16 04:30 04:55 WBC 3.3 L RBC 2.33 L Hgb 7.1 L Hct 24.1 L MCV 103.4 H D MCH 30.5 MCHC 29.5 L RDW 16.3 H Plt Count 84 L MPV 12.6 H Immature Gran % (Auto) 0.9 H Neut % (Auto) 78.1 H Lymph % (Auto) 9.9 L Gooding % (Auto) 6.9 Eos % (Auto) 3.6 Baso % (Auto) 0.6 Lymph # (Auto) 0.3 L Gooding # (Auto) 0.2 Eos # (Auto) 0.1 Baso # (Auto) 0.0 Abs Immat Gran (auto) 0.03 Absolute Neuts (auto) 2.6 Absolute Nucleated RBC 0.040 H Nucleated RBC % (auto) 1.2 H Smear Tech's Comments VERIFIED PT INR VBG pH VBG pCO2 VBG pO2 VBG HCO3 VBG O2 Saturation VBG Base Excess Sodium Potassium Chloride Carbon Dioxide Anion Gap BUN Creatinine Estim Creat Clear Calc Estimated GFR POC Glucose 228 H 216 H Random Glucose Calcium Phosphorus Magnesium Albumin Random Vancomycin 05/13/20 05/13/20 05/13/20 04:55 04:55 04:55 WBC RBC Hgb Hct MCV MCH MCHC RDW Plt Count MPV Immature Gran % (Auto) Neut % (Auto) Lymph % (Auto) Gooding % (Auto) Eos % (Auto) Baso % (Auto) Lymph # (Auto) Gooding # (Auto) Eos # (Auto) Baso # (Auto) Abs Immat Gran (auto) Absolute Neuts (auto) Absolute Nucleated RBC Nucleated RBC % (auto) Smear Tech's Comments PT 15.0 H INR 1.3 H VBG pH 7.33 VBG pCO2 49 VBG pO2 112 VBG HCO3 26 VBG O2 Saturation 97.0 VBG Base Excess 0.4 Sodium 145 Potassium 4.6 Chloride 111 H Carbon Dioxide 21 L Anion Gap 18 BUN 107 H* Creatinine 5.41 H* Estim Creat Clear Calc 27.9 Estimated GFR 11 POC Glucose Random Glucose 241 H D Calcium 7.6 L Phosphorus 5.7 H Magnesium 3.0 H Albumin 3.0 L Random Vancomycin 05/13/20 05/13/20 05/13/20 05:21 06:17 07:29 WBC RBC Hgb Hct MCV MCH MCHC RDW Plt Count MPV Immature Gran % (Auto) Neut % (Auto) Lymph % (Auto) Gooding % (Auto) Eos % (Auto) Baso % (Auto) Lymph # (Auto) Gooding # (Auto) Eos # (Auto) Baso # (Auto) Abs Immat Gran (auto) Absolute Neuts (auto) Absolute Nucleated RBC Nucleated RBC % (auto) Smear Tech's Comments PT INR VBG pH VBG pCO2 VBG pO2 VBG HCO3 VBG O2 Saturation VBG Base Excess Sodium Potassium Chloride Carbon Dioxide Anion Gap BUN Creatinine Estim Creat Clear Calc Estimated GFR POC Glucose 206 H 189 H 186 H Random Glucose Calcium Phosphorus Magnesium Albumin Random Vancomycin Microbiology Microbiology Results: Microbiology 05/06/20 16:38 Blood - Venous Blood Culture - Final No growth after 5 days. 05/06/20 16:37 Blood - Venous Blood Culture - Final No growth after 5 days. 05/05/20 10:36 Blood - Venous Blood Culture - Final No growth after 5 days. 05/05/20 10:36 Blood - Venous Blood Culture - Final No growth after 5 days. 05/06/20 16:37 Urine Catheterized - Moser Catheter Urine Culture - Final No growth. 05/06/20 12:03 Sputum - Suctioned Gram Stain - Final 05/06/20 12:03 Sputum - Suctioned Sputum Culture - Final Stenotrophomonas maltophilia 05/03/20 16:12 Blood - Venous Blood Culture - Final No growth after 5 days. 05/04/20 08:10 Sputum - Suctioned Gram Stain - Final 05/04/20 08:10 Sputum - Suctioned Sputum Culture - Final 05/03/20 16:12 Blood - Venous Blood Culture - Final Corynebacterium species 05/04/20 10:00 Urine Catheterized - Moser Catheter Urine Culture - Final No growth. Progress Note: A&P Assessment and plan (1) ARDS (adult respiratory distress syndrome): Status: Acute Assessment and Plan: Assessment: 49-year-old gentleman with underlying morbid obesity, chronic right-sided congestive heart failure, diabetes mellitus admitted with acute hypoxic respiratory failure secondary to COVID-19 ARDS further complicated by acute renal failure and exacerbation of underlying chronic right-sided congestive heart failure Plan: Neuro: CT head negative for CVA on 05/10/2020. Cardiac: Acute on chronic right-sided congestive heart failure. Diuresis held secondary to worsening function. Will restart as renal function improves or may require dialysis. Pulmonary: Acute hypoxic respiratory failure secondary to COVID-19 ARDS. Continue to titrate off ventilatory support as tolerated. Underlying chronic hypercapnic respiratory failure secondary to obstructive sleep apnea and obesity hyperventilation support requiring BiPAP support at night. Renal: Acute renal failure on the background of chronic renal disease secondary to COVID-19. Some improvement in urine output overnight. Non oliguric. Continue to monitor renal indices and urine output. May require hemodialysis. Endo: No acute issues. Underlying diabetes mellitus. GI: No acute issues. ID: COVID [id number], completed dexamethasone. Stenotrophomonas in sputum, no evidence of clinical pneumonia, empirically covered with nebulized tobramycin secondary to persistent fevers. Heme/Onc: No acute issues. Psych: No acute issues. Miscellaneous: No acute issues. Prophylaxis: Heparin, ppi Diet: Tube feeds Critical care time spent: 60 minutes (2) COVID-19: Status: Acute (3) Respiratory failure with hypoxia: Status: Acute (4) JOSE (acute kidney injury): Status: Acute (5) Morbid obesity: Status: Acute (6) Diabetes mellitus: Status: Acute Time Spent With Patient Total time spent with greater than 50% in coordination of care (as documented) at patient's floor/unit and/or counseling patient:: 0 Critical Care Time Critical Care Time (minutes): 60
[2020-05-13] MEDS: Tobramycin Sulfate 80 MG/2 ML VIAL 300 MG INHALE ×2 (09:59→20:10)
[2020-05-13 11:12] LABS: Glucose, Whole Blood 158 mg/dL (60-115)
[2020-05-13 11:12] LABS: Glucose, Whole Blood 166 mg/dL (60-115)
[2020-05-13 15:10] LABS: Glucose, Whole Blood 145 mg/dL (60-115)
[2020-05-13 15:10] LABS: Glucose, Whole Blood 161 mg/dL (60-115)
--- NOTE | 2020-05-13 15:41 | PC.NURSE ---
Pt intubated sedated, SaO2 93%, Vent settings PC rate 32, I pressure 35, PEEP 5,FiO2 titrated down to 45%, Tv 590-600, min vol. 20L/min, ETCO2 trending down to 28, occasionally breathes over vent. Lungs dim with expiratory rhonci. #8 ET tube 26cm lip. No inline secretions, oral secretions suctioned with yankeur. Tube tamer changed today per RT. +cough/gag. Bilat pupils unreactive to light, MD aware. Extremities flaccid. Propofol running at 35mcg/kg/min, fentanyl at 200mcg/hr, levophed at 0.02mcg/kg/min. Levophed was turned off at 1010, BP trended down to 84/30, back on at 1015. BP 112/49 now. Pt's edema 3+ pitting to hands and LLE. Significant scleredema to left eye, bulging. NSR 70-90, inverted Twaves, MD aware 12 lead EKG obtained. Urine output dark yellow, cloudy 120ml from 0700 to 1600. BUN/Cr up to 107/5.41, MD aware. Getting glucerna at 20ml/hr OG tube 50-60ml residual Christopher given at 1100 with 300ml free water flush. On insulin drip at 13U/hr, last POC 140-150s. Unstageable pressure ulcers bilat buttocks barrier cream, turn repo, powder to groin/abd fungal rash, rectal tube in place, draining small amount brown liquid stool. Bed locked and in lowest position.
[2020-05-13 17:28] LABS: Glucose, Whole Blood 118 mg/dL (60-115)
[2020-05-13 19:49] LABS: Glucose, Whole Blood 184 mg/dL (60-115)
[2020-05-13 21:31] LABS: Glucose, Whole Blood 200 mg/dL (60-115)
[2020-05-13 22:13] LABS: Glucose, Whole Blood 178 mg/dL (60-115)
[2020-05-13 23:26] LABS: Glucose, Whole Blood 164 mg/dL (60-115)
[2020-05-14] VITALS (30 sets, daily range): BP systolic 99–148; BP diastolic 35–56; PULSE 74–92; RESP 28–35; TEMP 37.3–38.1; O2SAT 88–95; BMI 68.7
[2020-05-14] MEDS: propofoL 1,000 MG/100 ML VIAL 38.64 MG IVCONT ×10 (00:48→23:18)
[2020-05-14 01:09] LABS: Glucose, Whole Blood 161 mg/dL (60-115)
[2020-05-14 01:27] LABS: Glucose, Whole Blood 150 mg/dL (60-115)
[2020-05-14 02:33] LABS: Glucose, Whole Blood 150 mg/dL (60-115)
[2020-05-14] MEDS: Heparin Sodium,Porcine 5,000 UNIT/ML VIAL 5000 UNIT SUBCUT ×3 (03:34→18:27)
[2020-05-14] MEDS: Insulin Regular/NS 100 UNIT/100 ML PLAST..BAG 12 UNIT IVCONT (03:57)
[2020-05-14 04:03] LABS: Glucose, Whole Blood 136 mg/dL (60-115)
[2020-05-14] MEDS: fentaNYL citrate/NS 1,000 MCG/100 ML PLAST..BAG 20 MCG IVCONT ×3 (04:58→15:17)
[2020-05-14 05:13] LABS: Glucose, Whole Blood 143 mg/dL (60-115)
[2020-05-14 05:58] LABS: PCO2 VBG 51 mmHg
[2020-05-14 05:59] LABS: Base Excess VBG -0.6 mmol/L; Basophils Percent Auto 0.6 % (0-2); Eosinophils Absolute Auto 0.1 X10*3/uL (0.0-0.4); Eosinophils Percent Auto 4.4 % (0-4); HCO3 VBG 25 mmol/L; Hematocrit 24.7 % (42-52); Hemoglobin 7.2 g/dl (14.0-18.0); Imm Gran Abs Auto 0.02 X10*3/uL (0.00-0.03); Imm Gran Pct Auto 0.6 % (0.0-0.4); Lymphocytes Absolute Auto 0.2 X10*3/uL (1.2-4.9); Lymphocytes Percent Auto 6.6 % (20-40); MANUAL DIFF FLAG SCAN; Mean Corpuscular HGB Conc 29.1 g/dl (31.0-36.0); Mean Corpuscular Hemoglobin 29.9 pg (27.0-33.0); Mean Corpuscular Volume 102.5 fL (80-98); Mean Platelet Volume 13.1 fL (9.4-12.4); Monocytes Absolute Auto 0.2 X10*3/uL (0.1-1.2); NRBC Pct Auto 0.6 /100WBC (0.0-0.2); Neutrophils Absolute Auto 2.6 X10*3/uL (2.0-8.3); Neutrophils Percent Auto 80.8 % (45-73); PO2 VBG 56 mmHg; Platelet Count 84 X10*3/uL (160-400); Red Blood Count 2.41 X10*6/uL (4.60-5.80); Red Cell Distribution Width 16.1 % (11.0-16.0); SCAN SMEAR FLAG 1; White Blood Count 3.2 X10*3/uL (4.8-10.8)
[2020-05-14 06:25] LABS: SLIDE REVIEW VERIFIED
[2020-05-14 06:29] LABS: Albumin Level 2.9 g/dL (3.5-5.0); Anion Gap 15 (12-20); Blood Urea Nitrogen 118 mg/dL (9-16); Calcium 7.7 mg/dL (8.4-10.2); Carbon Dioxide 23 mmol/L (22-29); Chloride 109 mmol/L (96-108); Creatinine Clr Calc Pharmacy 24.6; Estimated Glomerular Filt Rate 10; Glucose Random 150 mg/dL (60-115); Phosphorus 5.7 mg/dL (2.7-4.5); Potassium 4.1 mmol/L (3.3-5.1); Sodium 143 mmol/L (135-145)
[2020-05-14 07:10] LABS: Glucose, Whole Blood 130 mg/dL (60-115)
[2020-05-14 07:26] LABS: Glucose, Whole Blood 137 mg/dL (60-115)
[2020-05-14 07:28] LABS: Glucose, Whole Blood 403 mg/dL (60-115)
--- NOTE | 2020-05-14 07:34 | PC.NURSE ---
Shift eval - 7p-7a - Patient remains intubated. 8 ETT, 25cm at lip. Copious clear oral secretions. Minimal clear/cream in-line secretions, except for one episode of moderate amount post repositioning. Insp & exp rhoncho heard in upper lobes. +cough & gag. Vent settings changed PC - Insp pressure from 33 to 30, Rate 32 to 30 to 28. Fio2 45, short period desat to 80's, increased fio2 to 55, then back down to 45%. Peep 5. min vol before vent changes were 20, but then once vent settings changed, tv 400-500, tv 13-15. Cooling blanket on top of patient, temp 99.3-99.8 through night. Levo on for BP control. Tolerating tube feed 30ml/hr. Bilat buttocks mascerated, villatoro / sloughed. Patient had one large pasty brown stool. Pericare done, repos Q2H.
[2020-05-14] MEDS: Artificial Tears Ophth Oint 3.5 GM TUBE 1 APPL EYE-BOTH ×2 (08:32→20:38)
[2020-05-14] MEDS: Chlorhexidine Gluc Oral Rinse 15 ML MOUTHWASH BUCCAL ×3 (08:33→20:38)
[2020-05-14 08:35] LABS: Glucose, Whole Blood 128 mg/dL (60-115)
[2020-05-14] MEDS: Tobramycin Sulfate 80 MG/2 ML VIAL 300 MG INHALE ×2 (10:03→21:52)
[2020-05-14 10:31] LABS: Glucose, Whole Blood 133 mg/dL (60-115)
[2020-05-14 10:34] LABS: Lactic Acid 0.8 mmol/L (0.5-2.0)
--- NOTE | 2020-05-14 10:47 | MHC.CLN ---
F/U PT RECEIVING GLUCERNA AT 30CC/HR WITH 300CC Q 6 HRS TO PROVIDE 880KCALS (1900KCALS WITH SEDATION & JONI; 29KCALS/KG), 35G PROTEIN (.54G/KG WITH JONI), 1814CC TOTAL FREE WATER FROM FORMULA AND FLUSHES JONI IN PLACE VIA OG TO SUPPORT WOUND HEALING CONTINUE TO MONITOR TOLERANCE, RESIDUALS AND LYTES
[2020-05-14] MEDS: Nystatin Powder 15 GM BOTTLE 1 APPL TOPICAL ×2 (11:00→20:39)
--- NOTE | 2020-05-14 11:26 | MHC.CM.PN ---
Patient remains intubated/vented in ICU. Patient is from home. Anticipate physical therapy eval for home safety will be needed when medically stable. Continue to monitor for d/c needs.
[2020-05-14] MEDS: Insulin Regular/NS 100 UNIT/100 ML PLAST..BAG 10 UNIT IVCONT (12:36)
--- NOTE | 2020-05-14 13:18 | P.PNCC_ITS ---
Subjective Subjective Date of Service: 05/15/20 Interval History: Mr. Cortez was admitted to ICU May 03 with acute hypoxemic respiratory failure secondary to COVID pneumonia. The patient is a 49 yo man with PMHx of super morbid obesity (5?8?, 205 kg), Pickwickian syndrome, right heart failure, and cor pulmonale, with CKD (baseline creat about 1.5) and probable cardiorenal syndrome; DM, HTN, chronic lymphedema, chronic pain on opiates, h/o kidney stones, pancytopenia, and s/p Rt. BKA. Past history of noncompliance with CPAP at home. I originally got to know the patient at the end of Mar, 2020 when we admitted him to ICU for hypercarbic respiratory failure with CO2 narcosis. COVID PCR was negative on April 06. In ICU, he was diuresed 40 liters with a diuretic infusion. Creatinine got down to 1.9. He was discharged from the hospital on April 21 on torsemide 40 mg, and Aldactone 25 mg. He presented to the ED on May 03 complaining of dyspnea. Had sat of 50% on room air at home. He reported that he tested positive for COVID-19 on May 01, although that was not here at [place]. In the ED, required BiPAP to get his Sat up. CXR showed marked flocculent bilateral opacities consistent with diffuse infiltrate and/or edema. BUN/creat were 94/2.7, BNP 218, DDimer 1900, Ferritin 2800, AST 340, CRP 26, PCT 1.2. Ultimately he was intubated in ED and admitted to ICU. He was treated with Decadron, empiric antibiotics, one unit of plasma, 4 doses o f remdesivir, and diuresis. Abx were d/c?d on 05/07. Last cultures on 05/06 were negative except for stenotrophomonas which grew out of in unimpressive sputum gram stain on 05/06 for that the patient was put on inhaled tobramycin. His renal indices nadired on 05/09 at 48/1.46 but have been rising since then. Lasix was held. Head CT on 05/10 was negative x for sinus dz, showing air-fluid levels in the ethmoid and sphenoid sinuses and frontal sinus. Renal indices have been rising since 1/28. On 05/12, urine output slowed dramatically and he became almost aneuric. But urine output picked up a little the next day and even more today, now averaging almost 20 cc/hour. This morning the patient is sedated on propofol at 35 ug/kg/min, with fent @ 200ug. He responds purposefully to pain, but he?s otherwise noninteractive. See Vital Signs below. He?s on Levophed at 0.04ug. Vent setting is PC rate 28, press 30/5, 45%, with Vt about 500cc, Ve 15L, PiP 36, Ppl 34, and Sat 93%. CVBG this morning showed 7.25/47/-6. No access musc use. Normal exp phase. At least 1+ anasarca. Has unstageable sacral pressure ulcer. LABORATORY DATA: As below. Notably, BUN and creatinine are up to 118/6.1, potassium is 4.1, bicarb is 23, and the phos is steady at 5.7. Echo 04/07 was reported as follows: - 1. Technically extremely limited study despite use of contrast agent due to patient's body habitus. - 2. Right-sided chambers not evaluated [unable to be visualized] - 3. LV systolic function appeared preserved with LVEF of greater than 50% with pseudonormal filling with mild LVH - 4. Cardiac valves not well evaluated - 5. RV systolic pressure unable to be calculated IMPRESSION: 1. Super morbid obesity. 2. Baseline Pickwickian syndrome. 3. Baseline right heart failure, w cor pulmonale. 4. Bilateral COVID pneumonia with ARDS. 5. Acute hypoxemic respiratory failure. All things considered, however, his oxygenation could be much worse. Because of his super morbid obesity, and the length of the this current hospitalization, I am dubious that he?ll get away without a tracheostomy and PEG. I will discuss this with thoracic tomorrow. 6. Acute on chronic kidney disease, with baseline cardiorenal syndrome. We?ve stopped the diuresis. His potassium, phos, and bicarb are not too bad today. There?s a slim chance that he might get away without dialysis. 7. Diabetes. On insulin drip, currently 11u/hr, and well controlled. 8. Pancytopenia. Chronic. Not sure that his WBC today is significant. 9. ID: Still febrile, req a cooling blanket. I?m going to tx him for sinusitis. Would have used Unasyn but he?s PCN allergic. I?ll start him on meropenam and talk to pharmacy about other options. 10. Sacral pressure ulcer. Will discuss further with wound team. Prognosis is grave. His survival is dubious. In past years, we had no survival among pts with the combination of right heart failure/cardiorenal syndrome/resp failure/renal failure. Critical care time (including extended chart review and hospital course summary, and multiple discussions with Dr. Lyons and renal): 110+ min. Physical Exam Vital Signs: Vital Signs: Last Vital Signs Temp 100.5 F H 05/14/20 13:00 Pulse 86 05/14/20 13:00 Resp 34 H 05/14/20 13:00 BP 99/48 L 05/14/20 13:00 Pulse Ox 92 05/14/20 13:00 Body Mass Index 68.7 Objective Data Labs CBC & Chem 7: 05/14/20 05:41 05/14/20 05:41 Labs: Laboratory Results - last 24 hr 05/11/20 05/13/20 05/13/20 11:59 13:02 15:01 WBC RBC Hgb Hct MCV MCH MCHC RDW Plt Count MPV Immature Gran % (Auto) Neut % (Auto) Lymph % (Auto) [place] % (Auto) Eos % (Auto) Baso % (Auto) Lymph # (Auto) [place] # (Auto) Eos # (Auto) Baso # (Auto) Abs Immat Gran (auto) Absolute Neuts (auto) Absolute Nucleated RBC Nucleated RBC % (auto) Smear Tech's Comments VBG pH VBG pCO2 VBG pO2 VBG HCO3 VBG O2 Saturation VBG Base Excess Sodium Potassium Chloride Carbon Dioxide Anion Gap BUN Creatinine Estim Creat Clear Calc Estimated GFR POC Glucose 403 H* 161 H 145 H Random Glucose Lactic Acid Calcium Phosphorus Magnesium Albumin 05/13/20 05/13/20 05/13/20 17:17 19:44 21:18 WBC RBC Hgb Hct MCV MCH MCHC RDW Plt Count MPV Immature Gran % (Auto) Neut % (Auto) Lymph % (Auto) [place] % (Auto) Eos % (Auto) Baso % (Auto) Lymph # (Auto) [place] # (Auto) Eos # (Auto) Baso # (Auto) Abs Immat Gran (auto) Absolute Neuts (auto) Absolute Nucleated RBC Nucleated RBC % (auto) Smear Tech's Comments VBG pH VBG pCO2 VBG pO2 VBG HCO3 VBG O2 Saturation VBG Base Excess Sodium Potassium Chloride Carbon Dioxide Anion Gap BUN Creatinine Estim Creat Clear Calc Estimated GFR POC Glucose 118 H 184 H 200 H Random Glucose Lactic Acid Calcium Phosphorus Magnesium Albumin 05/13/20 05/13/20 05/14/20 22:08 23:09 00:19 WBC RBC Hgb Hct MCV MCH MCHC RDW Plt Count MPV Immature Gran % (Auto) Neut % (Auto) Lymph % (Auto) [place] % (Auto) Eos % (Auto) Baso % (Auto) Lymph # (Auto) [place] # (Auto) Eos # (Auto) Baso # (Auto) Abs Immat Gran (auto) Absolute Neuts (auto) Absolute Nucleated RBC Nucleated RBC % (auto) Smear Tech's Comments VBG pH VBG pCO2 VBG pO2 VBG HCO3 VBG O2 Saturation VBG Base Excess Sodium Potassium Chloride Carbon Dioxide Anion Gap BUN Creatinine Estim Creat Clear Calc Estimated GFR POC Glucose 178 H 164 H 161 H Random Glucose Lactic Acid Calcium Phosphorus Magnesium Albumin 05/14/20 05/14/20 05/14/20 01:22 02:26 03:42 WBC RBC Hgb Hct MCV MCH MCHC RDW Plt Count MPV Immature Gran % (Auto) Neut % (Auto) Lymph % (Auto) [place] % (Auto) Eos % (Auto) Baso % (Auto) Lymph # (Auto) [place] # (Auto) Eos # (Auto) Baso # (Auto) Abs Immat Gran (auto) Absolute Neuts (auto) Absolute Nucleated RBC Nucleated RBC % (auto) Smear Tech's Comments VBG pH VBG pCO2 VBG pO2 VBG HCO3 VBG O2 Saturation VBG Base Excess Sodium Potassium Chloride Carbon Dioxide Anion Gap BUN Creatinine Estim Creat Clear Calc Estimated GFR POC Glucose 150 H 150 H 136 H Random Glucose Lactic Acid Calcium Phosphorus Magnesium Albumin 05/14/20 05/14/20 05/14/20 05:05 05:41 05:41 WBC 3.2 L RBC 2.41 L Hgb 7.2 L Hct 24.7 L MCV 102.5 H MCH 29.9 MCHC 29.1 L RDW 16.1 H Plt Count 84 L MPV 13.1 H Immature Gran % (Auto) 0.6 H Neut % (Auto) 80.8 H Lymph % (Auto) 6.6 L [place] % (Auto) 7.0 Eos % (Auto) 4.4 H Baso % (Auto) 0.6 Lymph # (Auto) 0.2 L [place] # (Auto) 0.2 Eos # (Auto) 0.1 Baso # (Auto) 0.0 Abs Immat Gran (auto) 0.02 Absolute Neuts (auto) 2.6 Absolute Nucleated RBC 0.020 H Nucleated RBC % (auto) 0.6 H Smear Tech's Comments VERIFIED VBG pH VBG pCO2 VBG pO2 VBG HCO3 VBG O2 Saturation VBG Base Excess Sodium 143 Potassium 4.1 Chloride 109 H Carbon Dioxide 23 Anion Gap 15 BUN 118 H* Creatinine 6.19 H* Estim Creat Clear Calc 24.6 Estimated GFR 10 POC Glucose 143 H Random Glucose 150 H D Lactic Acid Calcium 7.7 L Phosphorus 5.7 H Magnesium 3.0 H Albumin 2.9 L 05/14/20 05/14/20 05/14/20 05:41 06:28 07:21 WBC RBC Hgb Hct MCV MCH MCHC RDW Plt Count MPV Immature Gran % (Auto) Neut % (Auto) Lymph % (Auto) [place] % (Auto) Eos % (Auto) Baso % (Auto) Lymph # (Auto) [place] # (Auto) Eos # (Auto) Baso # (Auto) Abs Immat Gran (auto) Absolute Neuts (auto) Absolute Nucleated RBC Nucleated RBC % (auto) Smear Tech's Comments VBG pH 7.30 L VBG pCO2 51 VBG pO2 56 VBG HCO3 25 VBG O2 Saturation 83.0 VBG Base Excess -0.6 Sodium Potassium Chloride Carbon Dioxide Anion Gap BUN Creatinine Estim Creat Clear Calc Estimated GFR POC Glucose 130 H 137 H Random Glucose Lactic Acid Calcium Phosphorus Magnesium Albumin 05/14/20 05/14/20 05/14/20 08:32 09:59 10:27 WBC RBC Hgb Hct MCV MCH MCHC RDW Plt Count MPV Immature Gran % (Auto) Neut % (Auto) Lymph % (Auto) [place] % (Auto) Eos % (Auto) Baso % (Auto) Lymph # (Auto) [place] # (Auto) Eos # (Auto) Baso # (Auto) Abs Immat Gran (auto) Absolute Neuts (auto) Absolute Nucleated RBC Nucleated RBC % (auto) Smear Tech's Comments VBG pH VBG pCO2 VBG pO2 VBG HCO3 VBG O2 Saturation VBG Base Excess Sodium Potassium Chloride Carbon Dioxide Anion Gap BUN Creatinine Estim Creat Clear Calc Estimated GFR POC Glucose 128 H 133 H Random Glucose Lactic Acid 0.8 Calcium Phosphorus Magnesium Albumin Microbiology Microbiology Results: Microbiology 05/06/20 16:38 Blood - Venous Blood Culture - Final No growth after 5 days. 05/06/20 16:37 Blood - Venous Blood Culture - Final No growth after 5 days. 05/05/20 10:36 Blood - Venous Blood Culture - Final No growth after 5 days. 05/05/20 10:36 Blood - Venous Blood Culture - Final No growth after 5 days. 05/06/20 16:37 Urine Catheterized - Moser Catheter Urine Culture - Final No growth. 05/06/20 12:03 Sputum - Suctioned Gram Stain - Final 05/06/20 12:03 Sputum - Suctioned Sputum Culture - Final Stenotrophomonas maltophilia 05/03/20 16:12 Blood - Venous Blood Culture - Final No growth after 5 days. 05/04/20 08:10 Sputum - Suctioned Gram Stain - Final 05/04/20 08:10 Sputum - Suctioned Sputum Culture - Final 05/03/20 16:12 Blood - Venous Blood Culture - Final Corynebacterium species 05/04/20 10:00 Urine Catheterized - Moser Catheter Urine Culture - Final No growth. Progress Note: A&P Time Spent With Patient Time: Total time spent is greater than 50% in coordination of care (as documented) at patient's floor/unit and/or counseling patient: Total time spent with greater than 50% in coordination of care (as documented) at patient's floor/unit and/or counseling patient:: 0 Critical Care Time Critical Care Time (minutes): 120
[2020-05-14 14:12] LABS: Glucose, Whole Blood 166 mg/dL (60-115)
[2020-05-14 14:26] LABS: Glucose Urine UA NEG (NEG); Leukocyte Esterase Urine 1+ (NEG); Nitrite Urine NEG (NEG); PH 5.5 (5.0-8.0); UACC Culture Trigger YES; Urine Blood 2+ (NEG); Urine Ketones NEG (NEG); Urine Protein 2+ MG/DL (NEG-TRACE)
[2020-05-14 14:27] LABS: Appearance Urine CLOUDY; Color Urine YELLOW
[2020-05-14 14:38] LABS: Granular Casts Urine 0-2 /LPF; Hyaline Casts Urine 0-2 /LPF; Squamous Epithelial Cell Urine 1+ /LPF
--- NOTE | 2020-05-14 14:48 | PC.NURSE ---
pt remains sedated on propofol and fentynal, PC settings on vent fio2 45%, large amt clear secretions orally, small amt thick cream colored inline secretions, temp high of 100.2 today core, cooling blanket remains on patient, levo at 0.04mcg MAP >65, HR SR, occasional PVCS, TLC dressing changed to RIJ, pt had small amount of BM, triad cream applied to pressure areas on buttocks, washed back, nystatin applied to groin, glucerna running at 30ml/hr, lee ordered BID, updated Josselin sister on plan today, insulin drip running at 11units/r recheck at 1630 per MD, lakesha intact, cultures re drawn today, okay to draw off line per MD, will cont to monitor
[2020-05-14 17:00] LABS: Glucose, Whole Blood 159 mg/dL (60-115)
[2020-05-14 17:45] LABS: PCO2 VBG 47 mmHg; pH VBG 7.25 (7.32-7.43)
[2020-05-14 17:46] LABS: HCO3 VBG 20 mmol/L; PO2 VBG 77 mmHg
[2020-05-14 17:47] LABS: Base Excess VBG -5.9 mmol/L
[2020-05-14] MEDS: fentaNYL citrate/NS 1,000 MCG/100 ML PLAST..BAG 30 MCG IVCONT ×2 (18:27→21:59)
[2020-05-14 20:29] LABS: Glucose, Whole Blood 174 mg/dL (60-115)
[2020-05-14] MEDS: Insulin Regular/NS 100 UNIT/100 ML PLAST..BAG 11 UNIT IVCONT (20:42)
[2020-05-14 22:15] LABS: Glucose, Whole Blood 174 mg/dL (60-115)
[2020-05-15] VITALS (33 sets, daily range): BP systolic 104–141; BP diastolic 40–61; PULSE 84–103; RESP 27–86; TEMP 37.9–38.9; O2SAT 82–100; BMI 69.0
--- NOTE | 2020-05-15 | XR_ITS ---
EXAMINATION: XR CHEST CLINICAL INFORMATION: Left subclavian venous line placement COMPARISON: None TECHNIQUE: Frontal view of the chest was obtained. FINDINGS: The lungs are hypoexpanded diffuse bilateral airspace disease. The heart size is normal. Pulmonary vascularity is normal. There is a left central line with its tip in the left brachiocephalic vein. It needs to be advanced at least by 10 cm for the catheter tip to lie in SVC. There is a right central venous catheter with its tip in the distal jugular vein. There is enteric tube which is visualized in the mid chest. The tube cannot be followed up in the distal chest or the upper abdomen. No gross bony abnormality seen. XR/XR chest 1V IMPRESSION: Diffuse bilateral air space disease. Support lines and catheters as described above.
[2020-05-15] MEDS: propofoL 1,000 MG/100 ML VIAL 38.64 MG IVCONT ×4 (01:38→09:53)
[2020-05-15] MEDS: fentaNYL citrate/NS 1,000 MCG/100 ML PLAST..BAG 30 MCG IVCONT ×2 (01:39→04:20)
[2020-05-15 01:57] LABS: Glucose, Whole Blood 160 mg/dL (60-115)
[2020-05-15] MEDS: Heparin Sodium,Porcine 5,000 UNIT/ML VIAL 5000 UNIT SUBCUT ×3 (04:19→19:16)
[2020-05-15] MEDS: Insulin Regular/NS 100 UNIT/100 ML PLAST..BAG 11 UNIT IVCONT (04:21)
[2020-05-15 06:12] LABS: Glucose, Whole Blood 156 mg/dL (60-115)
[2020-05-15 06:12] LABS: Glucose, Whole Blood 181 mg/dL (60-115)
[2020-05-15 06:12] LABS: Glucose, Whole Blood 171 mg/dL (60-115)
[2020-05-15 06:15] LABS: Basophils Percent Auto 0.6 % (0-2); Eosinophils Absolute Auto 0.1 X10*3/uL (0.0-0.4); Hematocrit 23.1 % (42-52); Hemoglobin 7.2 g/dl (14.0-18.0); Imm Gran Abs Auto 0.04 X10*3/uL (0.00-0.03); Imm Gran Pct Auto 1.2 % (0.0-0.4); Lymphocytes Absolute Auto 0.2 X10*3/uL (1.2-4.9); Lymphocytes Percent Auto 5.5 % (20-40); MANUAL DIFF FLAG SCAN; Mean Corpuscular HGB Conc 31.2 g/dl (31.0-36.0); Mean Corpuscular Hemoglobin 31.3 pg (27.0-33.0); Mean Corpuscular Volume 100.4 fL (80-98); Mean Platelet Volume 12.3 fL (9.4-12.4); Monocytes Absolute Auto 0.2 X10*3/uL (0.1-1.2); Monocytes Percent Auto 6.4 % (2-11); NRBC Pct Auto 0.9 /100WBC (0.0-0.2); Neutrophils Absolute Auto 2.7 X10*3/uL (2.0-8.3); Neutrophils Percent Auto 82.3 % (45-73); Platelet Count 94 X10*3/uL (160-400); Red Cell Distribution Width 16.8 % (11.0-16.0); SCAN SMEAR FLAG 1; White Blood Count 3.3 X10*3/uL (4.8-10.8)
--- NOTE | 2020-05-15 06:43 | PC.NURSE ---
CARE ASSUMED 23:15...REMAINS TUBED/VENTED...PCV MODE...DESATURATING AT HS TO 81-83%...MD PRESENT...FIO2 TO 60% AND PEEP INCREASED TO 10CM...IMPROVED SAO2 GRADUALLY TO 95-96%...FIO2 WEANED BACK TO BASE-LINE BY RT TO 45%...CURRENTLY SAO2 92-93%...Ve 16-17 L/M WITH IP 30 & AC28..REMAINS WITH LOW URINE OUTPUT...INCONTINANT 1 MODERATE AND 1 LARGE LOOSE BROWN STOOLS..
[2020-05-15 06:48] LABS: Lactic Acid 0.8 mmol/L (0.5-2.0)
[2020-05-15 06:50] LABS: SLIDE REVIEW VERIFIED
[2020-05-15 06:51] LABS: Phosphorus 5.2 mg/dL (2.7-4.5)
[2020-05-15 06:59] LABS: Anion Gap 18 (12-20); Blood Urea Nitrogen 119 mg/dL (9-16); Calcium 7.5 mg/dL (8.4-10.2); Carbon Dioxide 19 mmol/L (22-29); Chloride 109 mmol/L (96-108); Creatinine Clr Calc Pharmacy 22.8; Estimated Glomerular Filt Rate 9; Glucose Random 184 mg/dL (60-115); Sodium 142 mmol/L (135-145)
[2020-05-15 07:07] LABS: D Dimer 7040 NG/ML
[2020-05-15 07:11] LABS: Ferritin 515 ng/mL (20-250)
[2020-05-15 07:22] LABS: Base Excess VBG -7.6 mmol/L; HCO3 VBG 18 mmol/L; PCO2 VBG 41 mmHg; PO2 VBG 56 mmHg; pH VBG 7.25 (7.32-7.43)
[2020-05-15 07:25] LABS: Glucose, Whole Blood 179 mg/dL (60-115)
[2020-05-15] MEDS: Chlorhexidine Gluc Oral Rinse 15 ML MOUTHWASH BUCCAL ×3 (08:46→21:19)
[2020-05-15] MEDS: fentaNYL citrate/NS 1,000 MCG/100 ML PLAST..BAG 20 MCG IVCONT ×3 (08:46→19:17)
[2020-05-15] MEDS: Artificial Tears Ophth Oint 3.5 GM TUBE 1 APPL EYE-BOTH ×2 (08:47→22:35)
[2020-05-15] MEDS: Nystatin Powder 15 GM BOTTLE 1 APPL TOPICAL ×2 (09:55→22:34)
[2020-05-15 10:26] LABS: Glucose, Whole Blood 183 mg/dL (60-115)
[2020-05-15] MEDS: Tobramycin Sulfate 80 MG/2 ML VIAL 300 MG INHALE ×2 (10:38→22:49)
--- NOTE | 2020-05-15 10:51 | P.CONNP_ITS ---
History of Present Illness Reason for Consult Consult date: 05/15/20 Reason for consult: JOSE Chief Complaint Chief complaint: Acute hypoxic respiratory failure History of Present Illness Narrative: Kenny is a 49 yo man with super morbid obesity (5?8?, 205 kg), Pickwickian syndrome, right heart failure, and cor pulmonale, with CKD (baseline creat about 1.5) and probable cardiorenal syndrome; DM, HTN, chronic lymphedema, chronic pain on opiates, h/o kidney stones, pancytopenia, and s/p Rt. BKA admitted him to ICU for hypercarbic respiratory failure with CO2 narcosis. COVID PCR was negative on April 06. He presented to the ED on May 03 complaining of dyspnea. Had sat of 50% on room air at home. He reported that he tested positive for COVID-19 on May 01. Ultimately he was intubated in ED and admitted to ICU. Renal indices have been rising since 05/10. On 05/12, urine output slowed dramatically ,now averaging almost 20 cc/hour. Nephrology has been consulted to assist in his clinical care during his current hospital stay. Review of Systems Review of Systems Yes Unobtainable due to mental condition PMFSH Past Medical History Medical History (Updated 05/15/20 @ 10:59 by Efraín Baxter MD) CHF (congestive heart failure) Chronic pain Congestive heart failure Diabetic neuropathy Dyspnea Gram negative sepsis Hypertension Morbid obesity New onset of congestive heart failure Obesity hypoventilation syndrome Opioid use disorder Phantom limb pain Respiratory failure requiring intubation Tick bite of back Family History Family History Father No problems noted. Mother No problems noted. Family history: reviewed and not pertinent Surgical History Surgical History History of right lower limb amputation Hx of cholecystectomy Social History Social History Household Members: Unknown / Unable to assess Housing: Unknown / Unable to assess Alcohol intake: never Smoking Status: Former smoker Tobacco Type: Cigarette Packs Per Day: 3 Cigarettes Per Day: 60.0 Years Smoked: 25 Substance Use Type: Opiates service: No Current occupational status: unemployed Meds Allergies Allergy/AdvReac Type Severity Reaction Status Date / Time penicillin V Allergy Unknown hives Verified 05/02/20 12:48 Home Medications Medication Instructions Recorded Confirmed Type acetaminophen 500 mg tablet 1,000 mg PO Q8-10H PRN 01/18/20 05/03/20 History aspirin 81 mg tablet,delayed 81 mg PO DAILY 01/18/20 05/03/20 History release calcium carbonate 500 mg calcium 500 mg PO DAILY 01/18/20 05/03/20 History (1,250 mg) tablet clonidine HCl 0.1 mg tablet 0.1 mg PO BID 01/18/20 05/03/20 History cyclobenzaprine 5 mg tablet 5 mg PO TID PRN 01/18/20 05/03/20 History ferrous sulfate 325 mg (65 mg 325 mg PO DAILY 01/18/20 05/03/20 History iron) tablet fluticasone propionate 50 1 spray INTRANASAL BID 01/18/20 05/03/20 History mcg/actuation nasal spray,suspension melatonin 3 mg capsule 6 mg PO BEDTIME PRN 01/18/20 05/03/20 History omeprazole 20 mg capsule,delayed 20 mg PO BID 01/18/20 05/03/20 History release pravastatin 10 mg tablet 10 mg PO BEDTIME 01/18/20 05/03/20 History topiramate 100 mg tablet 100 mg PO BEDTIME 01/18/20 05/03/20 History trazodone 50 mg tablet 50 mg PO BEDTIME PRN 01/18/20 05/03/20 History facial-body wipes #384 ea 02/20/20 05/02/20 History levothyroxine 37.5 mcg PO DAILY 04/06/20 05/03/20 History loperamide 2 mg PO Q4H PRN 05/03/20 05/03/20 History Physical Exam Vital Signs: Last Vital Signs Temp 101.8 F H 05/15/20 10:00 Pulse 101 H 05/15/20 10:39 Resp 36 H 05/15/20 10:00 BP 133/54 L 05/15/20 10:00 Pulse Ox 95 05/15/20 10:00 Body Mass Index 69.0 Const Other: On Ventilator Nutritional Appearance: obese Neck Other: RIJ line in place Resp Auscultation: diminished lung sounds Cardio Rate: regular rate GI Inspection: Yes obesity Palpation (GI): Soft to palpation Neuro Other: Sedated Results Lab Results Result Diagrams: 05/15/20 05:40 05/15/20 05:40 Lab results: Chemistry 05/12/20 05/13/20 05/14/20 14:16 04:55 05:41 Sodium 144 145 143 Potassium 5.3 H 4.6 4.1 Carbon Dioxide 21 L 21 L 23 BUN 97 H* 107 H* 118 H* Creatinine 4.63 H* 5.41 H* 6.19 H* Calcium 7.8 L 7.6 L 7.7 L Phosphorus 5.7 H 5.7 H 05/15/20 05/15/20 05:40 05:40 Sodium 142 Potassium 4.0 Carbon Dioxide 19 L BUN 119 H* Creatinine 6.74 H* Calcium 7.5 L Phosphorus 5.2 H Hematology 05/13/20 05/14/20 05/15/20 04:55 05:41 05:40 WBC 3.3 L 3.2 L 3.3 L Hgb 7.1 L 7.2 L 7.2 L Plt Count 84 L 84 L 94 L Urinalysis 05/14/20 13:21 Urine Color YELLOW Urine Appearance CLOUDY Urine pH 5.5 Ur Specific [place] 1.020 Urine Protein 2+ H Urine Glucose (UA) NEG Urine Ketones NEG Urine Blood 2+ H Urine Nitrite NEG Ur Leukocyte Esterase 1+ H Urine RBC 15-29 H Urine WBC 5-9 H Ur Squamous Epith Cells 1+ Hyaline Casts 0-2 Assessment and Plan (1) JOSE (acute kidney injury): Problem details: JOSE due to tubular injury with profound oliguria and hypervolemia in a COVID patient with PNA with MOF who has CKD 3 at baseline. Needs renal replacement therapy. ICU Attending will insert HD catheter and Dialysis will be initiated tomorrow which he is going to get three days in a row from tomorrow. Further renal replacement will be based on evolving data Status: Acute
--- NOTE | 2020-05-15 13:07 | PM.CCPN ---
Subjective Subjective Date of Service: 05/15/20 Interval History: Mr. Cortez was admitted to ICU May 03 with acute hypoxemic respiratory failure secondary to COVID pneumonia. The patient is a 49 yo man with PMHx of super morbid obesity (5?8?, 205 kg), Pickwickian syndrome, right heart failure, and cor pulmonale, with CKD (baseline creat about 1.5) and probable cardiorenal syndrome; DM, HTN, chronic lymphedema, chronic pain on opiates, h/o kidney stones, pancytopenia, and s/p Rt. BKA. Past history of noncompliance with CPAP at home. I originally got to know the patient at the end of Mar, 2020 when we admitted him to ICU for hypercarbic respiratory failure with CO2 narcosis. COVID PCR was negative on April 06. In ICU, he was diuresed 40 liters with a diuretic infusion. Creatinine got down to 1.9. He was discharged from the hospital on April 21 on torsemide 40 mg, and Aldactone 25 mg. He presented to the ED on May 03 complaining of dyspnea. Had sat of 50% on room air at home. He reported that he tested positive for COVID-19 on May 01, although that was not here at [facility]. In the ED, required BiPAP to get his Sat up. CXR showed marked flocculent bilateral opacities consistent with diffuse infiltrate and/or edema. BUN/creat were 94/2.7, BNP 218, DDimer 1900, Ferritin 2800, AST 340, CRP 26, PCT 1.2. Ultimately he was intubated in ED and admitted to ICU. He was treated with Decadron, empiric antibiotics, one unit of plasma, 4 doses of remdesivir, and diuresis. Abx were d/c?d on 05/07. Last cultures on 05/06 were negative except for stenotrophomonas which grew out of in unimpressive sputum gram stain on 05/06 for that the patient was put on inhaled tobramycin. His renal indices nadired on 05/09 at 48/1.46 but have been rising since then. Lasix was held. Head CT on 05/10, done looking for possible thalamic infarct as cause of his fever, was negative x for sinus dz, showing air-fluid levels in the ethmoid and sphenoid sinuses and frontal sinus. Renal indices have been rising since 05/10. On 05/12, urine output slowed dramatically and he became almost aneuric. But urine output has picked up a little over last 3 days, now averaging about 25 cc/hour. Yesterday we started him on meropenam for sinusitis on head CT This morning the patient is sedated on propofol at 35 ug/kg/min, with fent @ 200ug. He grimaces or withdraws to pain, but he?s otherwise noninteractive. We turned the propofol off. After 3 hrs, still only grimaces to pain, localizes, but no eye opening, no interaction. See Vital Signs below. Still febrile to 102? when the cooling blanket?s not on. He?s on Levophed at 0.03ug. Vent setting is PC rate 28, press 30/10, 45%, with PIP 41, ETCO2 28, RR 29, Vt about 700cc, Ve 21L, and Sat 93%. CVBG this morning showed 7.25/41/-7. Pupils 5 mm on the right,, possibly up to 6 mm on the left, both sluggishly reactive. No JVD. Normal exp phase. At least 1+ anasarca. Has unstageable midline sacral pressure ulcer in the cleft above his anus; measures about 2 x 4?. No worse than stage 2 (i.e not into muscle). LABORATORY DATA: As below. Notably, BUN and creatinine are up to 119/6.7, potassium is down to 4.0, bicarb is down to 19, and the phos is down to 5.2. DDimer is up to 7040, Ferritin up to 515. Echo 04/07 was reported as follows: - 1. Technically extremely limited study despite use of contrast agent due to patient's body habitus. - 2. Right-sided chambers not evaluated [unable to be visualized]. - 3. LV systolic function appeared preserved with LVEF of greater than 50% with pseudonormal filling with mild LVH - 4. Cardiac valves not well evaluated - 5. RV systolic pressure unable to be calculated IMPRESSION: 1. Super morbid obesity. 2. Baseline Pickwickian syndrome. 3. Baseline right heart failure, w cor pulmonale. 4. Bilateral COVID pneumonia with ARDS. S/P 10 days of Decadron. 5. Acute hypoxemic respiratory failure. As bad as he?s doing, his oxygenation could be much worse, so that?s in his favor. But because of his super morbid obesity, and the length of this current hospitalization, I am dubious that he?ll get away without a tracheostomy and PEG -- if he survives. No clear need for steroids at this time. 6. Acute on chronic kidney disease, with baseline cardiorenal syndrome. We?ve stopped the diuresis. His potassium, phos, and bicarb are still not mandating dialysis, but uremia could be the cause of his AMS. Discussed with Dr. Baxter from [facility]. We will plan on dialyzing him tomorrow. In preparation, I will place a left subclavian central venous line today, pull his right internal jugular line, and we?ll put in a right internal jugular hemodialysis catheter. 7. AMS. Nothing on CT scan on 05/10. Toxic/metabolic etiology is the default. 8. Diabetes. On insulin drip, currently 12u/hr, and well controlled. 9. DDimer bump. We?ll check a lower extrem duplex scan. For now, continue anticoagulation with only heparin 5000 u q8hr. 10. Pancytopenia. Chronic. Not sure that his WBC today is significant. 11. ID: Still febrile, req a cooling blanket. No response yet to meropenam. 12. Sacral pressure ulcer. Local care OK for now, as directed by wound team. 13. Propofol dosing. Altho currently being held, at 35ug/kg/min, that?s > 400 mg/hr. Need to check a daily lactate to guard against propfol infusion syndrome. Prognosis is grave. His survival is dubious. In past years, we had no survival among pts with the combination of right heart failure/cardiorenal syndrome/resp failure/renal failure. I discussed again with Dr. Lyons and had a long telephone conversation with the patient?s oldest brother, Chavo Quintanilla, . I voiced to him that Kenny is entering a long, arduous, difficult, and burdensome road, that will include dialysis, trach, PEG, skilled nursing, and multiple/frequent complications, and even then, his survival is not assured, if not dubious. A good part of that has to do with his underlying disease, which is severe, despite his relatively young age. And that?s not even including the COVID. We talked about whether that is what Kenny would want. I answered all his questions. He is inclined to and critical care management and establish comfort measure status. He is going to talk to his siblings this evening and try to reach a decision. In view of the above, we will hold off on the dialysis catheter. I have discussed all the above with Dr. berger and Dr. Baxter, and they are in agreement. Critical care time (excluding procedures): 110+ min. Physical Exam Vital Signs: Vital Signs: Last Vital Signs Temp 101.7 F H 05/15/20 12:00 Pulse 101 H 05/15/20 12:00 Resp 38 H 05/15/20 12:00 BP 122/61 05/15/20 12:00 Pulse Ox 92 05/15/20 12:00 Body Mass Index 69.0 Objective Data Labs CBC & Chem 7: 05/15/20 05:40 05/15/20 05:40 Labs: Laboratory Results - last 24 hr 05/14/20 05/14/20 05/14/20 05:41 13:21 13:30 WBC RBC Hgb Hct MCV MCH MCHC RDW Plt Count MPV Immature Gran % (Auto) Neut % (Auto) Lymph % (Auto) [place] % (Auto) Eos % (Auto) Baso % (Auto) Lymph # (Auto) [place] # (Auto) Eos # (Auto) Baso # (Auto) Abs Immat Gran (auto) Absolute Neuts (auto) Absolute Nucleated RBC Nucleated RBC % (auto) Smear Tech's Comments D-Dimer VBG pH VBG pCO2 VBG pO2 VBG HCO3 VBG O2 Saturation VBG Base Excess Sodium Potassium Chloride Carbon Dioxide Anion Gap BUN Creatinine Estim Creat Clear Calc Estimated GFR POC Glucose 166 H Random Glucose Lactic Acid Calcium Phosphorus Ferritin C-Reactive Protein 9.50 H Urine Color YELLOW Urine Appearance CLOUDY Urine pH 5.5 Ur Specific [place] 1.020 Urine Protein 2+ H Urine Glucose (UA) NEG Urine Ketones NEG Urine Blood 2+ H Urine Nitrite NEG Ur Leukocyte Esterase 1+ H Urine RBC 15-29 H Urine WBC 5-9 H Ur Squamous Epith Cells 1+ Urine Bacteria NONE Hyaline Casts 0-2 Granular Casts 0-2 Urine Yeast 3+ 05/14/20 05/14/20 05/14/20 16:34 17:23 20:24 WBC RBC Hgb Hct MCV MCH MCHC RDW Plt Count MPV Immature Gran % (Auto) Neut % (Auto) Lymph % (Auto) [place] % (Auto) Eos % (Auto) Baso % (Auto) Lymph # (Auto) [place] # (Auto) Eos # (Auto) Baso # (Auto) Abs Immat Gran (auto) Absolute Neuts (auto) Absolute Nucleated RBC Nucleated RBC % (auto) Smear Tech's Comments D-Dimer VBG pH 7.25 L VBG pCO2 47 VBG pO2 77 VBG HCO3 20 VBG O2 Saturation 92.0 VBG Base Excess -5.9 Sodium Potassium Chloride Carbon Dioxide Anion Gap BUN Creatinine Estim Creat Clear Calc Estimated GFR POC Glucose 159 H 174 H Random Glucose Lactic Acid Calcium Phosphorus Ferritin C-Reactive Protein Urine Color Urine Appearance Urine pH Ur Specific [place] Urine Protein Urine Glucose (UA) Urine Ketones Urine Blood Urine Nitrite Ur Leukocyte Esterase Urine RBC Urine WBC Ur Squamous Epith Cells Urine Bacteria Hyaline Casts Granular Casts Urine Yeast 05/14/20 05/14/20 05/15/20 22:01 23:27 02:00 WBC RBC Hgb Hct MCV MCH MCHC RDW Plt Count MPV Immature Gran % (Auto) Neut % (Auto) Lymph % (Auto) [place] % (Auto) Eos % (Auto) Baso % (Auto) Lymph # (Auto) [place] # (Auto) Eos # (Auto) Baso # (Auto) Abs Immat Gran (auto) Absolute Neuts (auto) Absolute Nucleated RBC Nucleated RBC % (auto) Smear Tech's Comments D-Dimer VBG pH VBG pCO2 VBG pO2 VBG HCO3 VBG O2 Saturation VBG Base Excess Sodium Potassium Chloride Carbon Dioxide Anion Gap BUN Creatinine Estim Creat Clear Calc Estimated GFR POC Glucose 174 H 160 H 156 H Random Glucose Lactic Acid Calcium Phosphorus Ferritin C-Reactive Protein Urine Color Urine Appearance Urine pH Ur Specific [place] Urine Protein Urine Glucose (UA) Urine Ketones Urine Blood Urine Nitrite Ur Leukocyte Esterase Urine RBC Urine WBC Ur Squamous Epith Cells Urine Bacteria Hyaline Casts Granular Casts Urine Yeast 05/15/20 05/15/20 05/15/20 03:31 05:38 05:40 WBC RBC Hgb Hct MCV MCH MCHC RDW Plt Count MPV Immature Gran % (Auto) Neut % (Auto) Lymph % (Auto) [place] % (Auto) Eos % (Auto) Baso % (Auto) Lymph # (Auto) [place] # (Auto) Eos # (Auto) Baso # (Auto) Abs Immat Gran (auto) Absolute Neuts (auto) Absolute Nucleated RBC Nucleated RBC % (auto) Smear Tech's Comments D-Dimer VBG pH VBG pCO2 VBG pO2 VBG HCO3 VBG O2 Saturation VBG Base Excess Sodium Potassium Chloride Carbon Dioxide Anion Gap BUN Creatinine Estim Creat Clear Calc Estimated GFR POC Glucose 181 H 171 H Random Glucose Lactic Acid 0.8 Calcium Phosphorus Ferritin C-Reactive Protein Urine Color Urine Appearance Urine pH Ur Specific [place] Urine Protein Urine Glucose (UA) Urine Ketones Urine Blood Urine Nitrite Ur Leukocyte Esterase Urine RBC Urine WBC Ur Squamous Epith Cells Urine Bacteria Hyaline Casts Granular Casts Urine Yeast 05/15/20 05/15/20 05/15/20 05:40 05:40 05:40 WBC 3.3 L RBC 2.30 L Hgb 7.2 L Hct 23.1 L MCV 100.4 H MCH 31.3 MCHC 31.2 RDW 16.8 H Plt Count 94 L MPV 12.3 Immature Gran % (Auto) 1.2 H Neut % (Auto) 82.3 H Lymph % (Auto) 5.5 L [place] % (Auto) 6.4 Eos % (Auto) 4.0 Baso % (Auto) 0.6 Lymph # (Auto) 0.2 L [place] # (Auto) 0.2 Eos # (Auto) 0.1 Baso # (Auto) 0.0 Abs Immat Gran (auto) 0.04 H Absolute Neuts (auto) 2.7 Absolute Nucleated RBC 0.030 H Nucleated RBC % (auto) 0.9 H Smear Tech's Comments VERIFIED D-Dimer VBG pH VBG pCO2 VBG pO2 VBG HCO3 VBG O2 Saturation VBG Base Excess Sodium 142 Potassium 4.0 Chloride 109 H Carbon Dioxide 19 L Anion Gap 18 BUN 119 H* Creatinine 6.74 H* Estim Creat Clear Calc 22.8 Estimated GFR 9 POC Glucose Random Glucose 184 H Lactic Acid Calcium 7.5 L Phosphorus 5.2 H Ferritin 515 H C-Reactive Protein Urine Color Urine Appearance Urine pH Ur Specific [place] Urine Protein Urine Glucose (UA) Urine Ketones Urine Blood Urine Nitrite Ur Leukocyte Esterase Urine RBC Urine WBC Ur Squamous Epith Cells Urine Bacteria Hyaline Casts Granular Casts Urine Yeast 05/15/20 05/15/20 05/15/20 05:40 05:40 06:31 WBC RBC Hgb Hct MCV MCH MCHC RDW Plt Count MPV Immature Gran % (Auto) Neut % (Auto) Lymph % (Auto) [place] % (Auto) Eos % (Auto) Baso % (Auto) Lymph # (Auto) [place] # (Auto) Eos # (Auto) Baso # (Auto) Abs Immat Gran (auto) Absolute Neuts (auto) Absolute Nucleated RBC Nucleated RBC % (auto) Smear Tech's Comments D-Dimer 7040 VBG pH Cancelled 7.25 L VBG pCO2 Cancelled 41 VBG pO2 Cancelled 56 VBG HCO3 Cancelled 18 VBG O2 Saturation Cancelled 84.0 VBG Base Excess Cancelled -7.6 Sodium Potassium Chloride Carbon Dioxide Anion Gap BUN Creatinine Estim Creat Clear Calc Estimated GFR POC Glucose Random Glucose Lactic Acid Calcium Phosphorus Ferritin C-Reactive Protein Urine Color Urine Appearance Urine pH Ur Specific [place] Urine Protein Urine Glucose (UA) Urine Ketones Urine Blood Urine Nitrite Ur Leukocyte Esterase Urine RBC Urine WBC Ur Squamous Epith Cells Urine Bacteria Hyaline Casts Granular Casts Urine Yeast 05/15/20 05/15/20 07:14 10:23 WBC RBC Hgb Hct MCV MCH MCHC RDW Plt Count MPV Immature Gran % (Auto) Neut % (Auto) Lymph % (Auto) [place] % (Auto) Eos % (Auto) Baso % (Auto) Lymph # (Auto) [place] # (Auto) Eos # (Auto) Baso # (Auto) Abs Immat Gran (auto) Absolute Neuts (auto) Absolute Nucleated RBC Nucleated RBC % (auto) Smear Tech's Comments D-Dimer VBG pH VBG pCO2 VBG pO2 VBG HCO3 VBG O2 Saturation VBG Base Excess Sodium Potassium Chloride Carbon Dioxide Anion Gap BUN Creatinine Estim Creat Clear Calc Estimated GFR POC Glucose 179 H 183 H Random Glucose Lactic Acid Calcium Phosphorus Ferritin C-Reactive Protein Urine Color Urine Appearance Urine pH Ur Specific [place] Urine Protein Urine Glucose (UA) Urine Ketones Urine Blood Urine Nitrite Ur Leukocyte Esterase Urine RBC Urine WBC Ur Squamous Epith Cells Urine Bacteria Hyaline Casts Granular Casts Urine Yeast Microbiology Microbiology Results: Microbiology 05/14/20 15:15 Sputum - Suctioned Gram Stain - Final 05/14/20 14:27 Urine clean catch - Clean Catch Midstream Urine Culture - Final 05/06/20 16:38 Blood - Venous Blood Culture - Final No growth after 5 days. 05/06/20 16:37 Blood - Venous Blood Culture - Final No growth after 5 days. 05/05/20 10:36 Blood - Venous Blood Culture - Final No growth after 5 days. 05/05/20 10:36 Blood - Venous Blood Culture - Final No growth after 5 days. 05/06/20 16:37 Urine Catheterized - Moser Catheter Urine Culture - Final No growth. 05/06/20 12:03 Sputum - Suctioned Gram Stain - Final 05/06/20 12:03 Sputum - Suctioned Sputum Culture - Final Stenotrophomonas maltophilia 05/03/20 16:12 Blood - Venous Blood Culture - Final No growth after 5 days. 05/04/20 08:10 Sputum - Suctioned Gram Stain - Final 05/04/20 08:10 Sputum - Suctioned Sputum Culture - Final 05/03/20 16:12 Blood - Venous Blood Culture - Final Corynebacterium species 05/04/20 10:00 Urine Catheterized - Moser Catheter Urine Culture - Final No growth. Progress Note: A&P Time Spent With Patient Time: Total time spent is greater than 50% in coordination of care (as documented) at patient's floor/unit and/or counseling patient: Total time spent with greater than 50% in coordination of care (as documented) at patient's floor/unit and/or counseling patient:: 0 Critical Care Time Critical Care Time (minutes): 120
[2020-05-15] MEDS: Insulin Regular/NS 100 UNIT/100 ML PLAST..BAG 12 UNIT IVCONT ×2 (13:30→21:18)
[2020-05-15 14:19] LABS: Glucose, Whole Blood 207 mg/dL (60-115)
--- NOTE | 2020-05-15 14:26 | US_ITS ---
EXAMINATION: US VENOUS ULTRASOUND WITH DOPPLER LOWER EXTREMITY, BILATERAL CLINICAL INFORMATION: Evaluate for DVT. Covid positive COMPARISON: None TECHNIQUE: Ultrasound of the deep veins is performed from the hip to the calf with compression sonography and color and pulse Doppler assessment. Spectral analysis with color-flow imaging is performed. FINDINGS: RIGHT: There is normal venous compression and respiratory variation and augmented flow. The visualized common femoral vein, superficial femoral vein, profunda femoral vein, popliteal vein, shows no evidence of deep venous thrombosis. There is [id number] amputation present. LEFT: There is normal venous compression and respiratory variation and augmented flow. The visualized common femoral vein, superficial femoral vein, profunda femoral vein, popliteal vein, shows no evidence of deep venous thrombosis. There is no significant popliteal fossa cyst. The calf veins are not visualized. If the patient's symptoms persist, followup ultrasound in 5 days 7 days might be of value to exclude proximal propagation from a non-visualized calf vein. US/US venous duplex LE BI IMPRESSION: 1. No DVT demonstrated in the right lower extremity. 2. No evidence of DVT in the left lower extremity extending from the common femoral vein to the popliteal veins. The calf veins are not visualized. If the patient's symptoms persist, followup ultrasound in 5 days 7 days might be of value to exclude proximal propagation from a non-visualized calf vein.
--- NOTE | 2020-05-15 14:37 | PC.NURSE ---
pt sedated on fentynal at 200mcg, propofol off at 1125 for sedation vacation per md, pt on PC settings, fio2 45%, moderate amt clear oral secretions noted, pt grimaces to pain otherwise no response to commands, HR SR/ST, BP stable on levo at 0.03mcg, insulin drip running at 12units and recheck q4h per MD, glucerna running at 30/ml, pt bathed repositioned, triad and barrier cream applied to buttocks and coccyx, pads and sheets changed, MD to speak with sister Josselin regardining plan of care, Dr. Hull at bedside to vivek, TLC dressing changed to RIJ, cooling blanket on patient for temp 102, plan for dialysis tomorrow, will cont to monitor
--- NOTE | 2020-05-15 15:47 | W.PM.CCHP ---
Procedures Central Line Placement Left SC: Central Line Comments: PROCEDURE: Insertion left subclavian central venous line. INDICATION: Acute respiratory failure, multiple organ system failure; for IV access, blood draws, respiratory monitoring. A left-sided central venous line was needed in order to preserve the right internal jugular route for a Kei type hemodialysis catheter. ANESTHESIA: Local plus IV sedation PROCEDURE: The left subclavian and left neck areas were widely prepped and draped in full sterile fashion. Local anesthesia was applied to the subclavian area. The left subclavian vein was cannulated on the 1st pass of the 18 gauge thin wall. The wire was threaded without incident. A 7 Tamazight by 16 cm triple-lumen catheter was advanced into the vein up to the hub via the Seldinger technique without incident. There was good blood return x3. The catheter was sutured x3 and benzoin, a Biopatch, and dry sterile dressing were applied. Postop chest x-ray shows the tip of the line in the brachiocephalic vein, with no pneumothorax. The patient tolerated the procedure well w no complications.
[2020-05-15 18:08] LABS: Glucose, Whole Blood 201 mg/dL (60-115)
--- NOTE | 2020-05-15 21:31 | P.PNID_ITS ---
Subjective Subjective Date of Service: 05/15/20 Interval History: He has stenotrophomonas maltophila sputum He has had Tobramycin [facility] Objective Data Labs CBC & Chem 7: 05/15/20 05:40 05/15/20 05:40 Labs: Laboratory Results - last 24 hr 05/14/20 05/14/20 05/14/20 05:41 22:01 23:27 WBC RBC Hgb Hct MCV MCH MCHC RDW Plt Count MPV Immature Gran % (Auto) Neut % (Auto) Lymph % (Auto) [place] % (Auto) Eos % (Auto) Baso % (Auto) Lymph # (Auto) [place] # (Auto) Eos # (Auto) Baso # (Auto) Abs Immat Gran (auto) Absolute Neuts (auto) Absolute Nucleated RBC Nucleated RBC % (auto) Smear Tech's Comments D-Dimer VBG pH VBG pCO2 VBG pO2 VBG HCO3 VBG O2 Saturation VBG Base Excess Sodium Potassium Chloride Carbon Dioxide Anion Gap BUN Creatinine Estim Creat Clear Calc Estimated GFR POC Glucose 174 H 160 H Random Glucose Lactic Acid Calcium Phosphorus Ferritin C-Reactive Protein 9.50 H 05/15/20 05/15/20 05/15/20 02:00 03:31 05:38 WBC RBC Hgb Hct MCV MCH MCHC RDW Plt Count MPV Immature Gran % (Auto) Neut % (Auto) Lymph % (Auto) [place] % (Auto) Eos % (Auto) Baso % (Auto) Lymph # (Auto) [place] # (Auto) Eos # (Auto) Baso # (Auto) Abs Immat Gran (auto) Absolute Neuts (auto) Absolute Nucleated RBC Nucleated RBC % (auto) Smear Tech's Comments D-Dimer VBG pH VBG pCO2 VBG pO2 VBG HCO3 VBG O2 Saturation VBG Base Excess Sodium Potassium Chloride Carbon Dioxide Anion Gap BUN Creatinine Estim Creat Clear Calc Estimated GFR POC Glucose 156 H 181 H 171 H Random Glucose Lactic Acid Calcium Phosphorus Ferritin C-Reactive Protein 05/15/20 05/15/20 05/15/20 05:40 05:40 05:40 WBC RBC Hgb Hct MCV MCH MCHC RDW Plt Count MPV Immature Gran % (Auto) Neut % (Auto) Lymph % (Auto) [place] % (Auto) Eos % (Auto) Baso % (Auto) Lymph # (Auto) [place] # (Auto) Eos # (Auto) Baso # (Auto) Abs Immat Gran (auto) Absolute Neuts (auto) Absolute Nucleated RBC Nucleated RBC % (auto) Smear Tech's Comments D-Dimer VBG pH VBG pCO2 VBG pO2 VBG HCO3 VBG O2 Saturation VBG Base Excess Sodium 142 Potassium 4.0 Chloride 109 H Carbon Dioxide 19 L Anion Gap 18 BUN 119 H* Creatinine 6.74 H* Estim Creat Clear Calc 22.8 Estimated GFR 9 POC Glucose Random Glucose 184 H Lactic Acid 0.8 Calcium 7.5 L Phosphorus 5.2 H Ferritin 515 H C-Reactive Protein 05/15/20 05/15/20 05/15/20 05:40 05:40 05:40 WBC 3.3 L RBC 2.30 L Hgb 7.2 L Hct 23.1 L MCV 100.4 H MCH 31.3 MCHC 31.2 RDW 16.8 H Plt Count 94 L MPV 12.3 Immature Gran % (Auto) 1.2 H Neut % (Auto) 82.3 H Lymph % (Auto) 5.5 L [place] % (Auto) 6.4 Eos % (Auto) 4.0 Baso % (Auto) 0.6 Lymph # (Auto) 0.2 L [place] # (Auto) 0.2 Eos # (Auto) 0.1 Baso # (Auto) 0.0 Abs Immat Gran (auto) 0.04 H Absolute Neuts (auto) 2.7 Absolute Nucleated RBC 0.030 H Nucleated RBC % (auto) 0.9 H Smear Tech's Comments VERIFIED D-Dimer 7040 VBG pH Cancelled VBG pCO2 Cancelled VBG pO2 Cancelled VBG HCO3 Cancelled VBG O2 Saturation Cancelled VBG Base Excess Cancelled Sodium Potassium Chloride Carbon Dioxide Anion Gap BUN Creatinine Estim Creat Clear Calc Estimated GFR POC Glucose Random Glucose Lactic Acid Calcium Phosphorus Ferritin C-Reactive Protein 05/15/20 05/15/20 05/15/20 06:31 07:14 10:23 WBC RBC Hgb Hct MCV MCH MCHC RDW Plt Count MPV Immature Gran % (Auto) Neut % (Auto) Lymph % (Auto) [place] % (Auto) Eos % (Auto) Baso % (Auto) Lymph # (Auto) [place] # (Auto) Eos # (Auto) Baso # (Auto) Abs Immat Gran (auto) Absolute Neuts (auto) Absolute Nucleated RBC Nucleated RBC % (auto) Smear Tech's Comments D-Dimer VBG pH 7.25 L VBG pCO2 41 VBG pO2 56 VBG HCO3 18 VBG O2 Saturation 84.0 VBG Base Excess -7.6 Sodium Potassium Chloride Carbon Dioxide Anion Gap BUN Creatinine Estim Creat Clear Calc Estimated GFR POC Glucose 179 H 183 H Random Glucose Lactic Acid Calcium Phosphorus Ferritin C-Reactive Protein 05/15/20 05/15/20 14:12 17:54 WBC RBC Hgb Hct MCV MCH MCHC RDW Plt Count MPV Immature Gran % (Auto) Neut % (Auto) Lymph % (Auto) [place] % (Auto) Eos % (Auto) Baso % (Auto) Lymph # (Auto) [place] # (Auto) Eos # (Auto) Baso # (Auto) Abs Immat Gran (auto) Absolute Neuts (auto) Absolute Nucleated RBC Nucleated RBC % (auto) Smear Tech's Comments D-Dimer VBG pH VBG pCO2 VBG pO2 VBG HCO3 VBG O2 Saturation VBG Base Excess Sodium Potassium Chloride Carbon Dioxide Anion Gap BUN Creatinine Estim Creat Clear Calc Estimated GFR POC Glucose 207 H 201 H Random Glucose Lactic Acid Calcium Phosphorus Ferritin C-Reactive Protein Microbiology Microbiology Results: Microbiology 05/14/20 14:16 Blood - Venous Blood Culture - Preliminary No growth after 24 hours. 05/14/20 Unknown Blood - Venous Blood Culture - Preliminary No growth after 24 hours. 05/14/20 15:15 Sputum - Suctioned Gram Stain - Final 05/14/20 14:27 Urine clean catch - Clean Catch Midstream Urine Culture - Final 05/06/20 16:38 Blood - Venous Blood Culture - Final No growth after 5 days. 05/06/20 16:37 Blood - Venous Blood Culture - Final No growth after 5 days. 05/05/20 10:36 Blood - Venous Blood Culture - Final No growth after 5 days. 05/05/20 10:36 Blood - Venous Blood Culture - Final No growth after 5 days. 05/06/20 16:37 Urine Catheterized - Moser Catheter Urine Culture - Final No growth. 05/06/20 12:03 Sputum - Suctioned Gram Stain - Final 05/06/20 12:03 Sputum - Suctioned Sputum Culture - Final Stenotrophomonas maltophilia 05/03/20 16:12 Blood - Venous Blood Culture - Final No growth after 5 days. 05/04/20 08:10 Sputum - Suctioned Gram Stain - Final 05/04/20 08:10 Sputum - Suctioned Sputum Culture - Final 05/03/20 16:12 Blood - Venous Blood Culture - Final Corynebacterium species 05/04/20 10:00 Urine Catheterized - Moser Catheter Urine Culture - Final No growth. Physical Exam Vital Signs: Vital Signs: Last Vital Signs Temp 101.3 F H 05/15/20 20:00 Pulse 87 05/15/20 21:00 Resp 28 H 05/15/20 21:00 BP 123/42 L 05/15/20 21:00 Pulse Ox 94 05/15/20 21:00 Body Mass Index 69.0 Const: General: cooperative HENMT: Head: Yes normal to inspection Mouth: Normal oral and palatal mucosa present Eyes: General: appearance normal, both eyes and all related structures Resp: Effort & Inspection: normal respiratory effort Cardio: Rate: regular rate Rhythm: regular rhythm GI: Palpation (GI): Soft to palpation and nontender Assessment and Plan Assessment and plan (1) ARDS (adult respiratory distress syndrome): Problem details: Stenotrophomonas sputum Status: Acute Assessment and Plan: Would give [place],as Levaquin more cardiac toxicity Likely 5 days and Tobramycin Time Spent With Patient Time: Total time spent is greater than 50% in coordination of care (as documented) at patient's floor/unit and/or counseling patient: Time with patient: 15 - 24 minutes
[2020-05-15 22:36] LABS: Glucose, Whole Blood 166 mg/dL (60-115)
[2020-05-16] VITALS (17 sets, daily range): BP systolic 102–142; BP diastolic 37–56; PULSE 90–125; RESP 16–35; TEMP 38.2–38.6; O2SAT 87–100; BMI 68.7
[2020-05-16] MEDS: propofoL 200 MG/20 ML VIAL 100 MG IVPUSH (00:20)
[2020-05-16] MEDS: Rocuronium Bromide 50 MG/5 ML VIAL 30 MG IVPUSH (00:50)
--- NOTE | 2020-05-16 01:03 | XR_ITS ---
EXAMINATION: CHEST 1 VIEW CLINICAL INFORMATION: Line placement. COMPARISON: Multiple prior exams are reviewed. The most recent is from 05/15/2020. TECHNIQUE: An AP view of the chest is provided. FINDINGS: The cardiac silhouette is stable. A right central venous line has a tip that overlies near the confluence of the right internal jugular vein and right subclavian vein. The tip of the endotracheal tube is difficult to discern, though is approximately 6 cm above the valerie. There are neither pleural effusions nor pneumothoraces. There is diffuse bilateral mixed interstitial and airspace disease. The osseous structures are stable. XR/XR chest 1V IMPRESSION: Lines and tubes in place as stated above. Persistent diffuse mixed interstitial and airspace disease bilaterally.
--- NOTE | 2020-05-16 02:02 | PM.CCN ---
Critical Care Event Note Summary Narrative: Patient had a triple lumen, 16 cm CVL on the left subclavian area which was placed by doctor Terra, apparently the catheter was only in there approximately 3-4 cm due to the patient's large body habitus. Therefore an attempt was made to replace these with a 20 cm catheter. After prepping the field in a sterile fashion, doing a thorough cleanup of the site as well as line in place, the line was pulled back slightly and it was clamped with a forcep. The 3 ports were cut and main port was marked. With the help of a nurse, the catheter was unclamped, the wire was inserted, the all catheter was threaded however upon replacing it with a new catheter, I could not advance it and it repeatedly bended. I pulled the line out an aborted the procedure, apply pressure and a sterile dressing was placed. Subsequently with the use of ultrasound, I attempted to place a left IJ, propofol and rocuronium was given for sedation and paralyzation for the patient was somewhat awake and was moving, his breathing pattern was also somewhat complicated. After 3 attempts, I was not able to reach deep enough into the vessel due to the patient's thick body habitus. Toward the end of the procedure attempt, we noted the patient was having desaturations from the mid 90s down into the mid 80s and his heart rate went up to the 120s, in addition the tidal volumes were low in the 200s. The consideration for a pneumothorax was made and an x-ray was ordered. After reviewing lines, I turned out that the patient had some type of obstruction in the proximal aspect of the endotracheal tube which was corrected, patient was suction and tidal volumes went up to the 400s, O2 sat immediately when a up to low 90s and later to mid 90s. The chest x-ray was reviewed, a central line is noted on the right IJ area with the tip at the SVC, there is no evidence of pneumothorax on the left. At this point, there would be more harm than benefit trying to continue to place a catheter on this patient, I have placed a consult with Interventional Radiology for a line to be placed by them early in the morning. Total time spent with this patient 60 minutes in this procedures. Case was discussed in detail with Dr. Ellison. He is aware of all the above as well as the plan of care for this patient.
[2020-05-16] MEDS: fentaNYL citrate/NS 1,000 MCG/100 ML PLAST..BAG 20 MCG IVCONT ×3 (02:07→10:58)
[2020-05-16] MEDS: Heparin Sodium,Porcine 5,000 UNIT/ML VIAL 5000 UNIT SUBCUT ×2 (02:32→11:00)
--- NOTE | 2020-05-16 03:55 | PC.NURSE ---
PT MAINTAINED ON PRESSURE CONTROL VENT SETTINGS. TOLERATING WELL WITH NO RESP DIFFICULTIES. FENTANYL DRIP AT 200 MCG/HR. PROPOFOL DRIP REMAINS OFF. PROCEDURE TO INSERT TLC WAS ATTEMPTED BY YARELIS MURPHY WITHOUT SUCCESS. SEE NOTE BY YARELIS FOR FULL DETAIL. PT RECEIVED PROPOFOL BOLUS 100 MG AND ROCURONIUM 30 MG IV DURING PROCEDURE WHICH BEGAN AT 0010 AND FINISHED AT 0115. PCXR WAS DONE AND READ BY YARELIS. NO PNEUMOTHORAX. DSG APPLIED TO ATTEMPTED SITE LEFT NECK AND NO HEMATOMA NOTED. MONITOR SHOWS NSR, HR 90'S. PT HAD SINUS TACHYCARDIA BRIEFLY DURING PROCEDURE UP TO A RATE OF 120'S. BP STABLE ON LEVOPHED. INSULIN DRIP INFUSING. POC Q4H. PROVIDER IS MANAGING THE DRIP. SEE FLOW SHEET.
[2020-05-16 05:28] LABS: Basophils Percent Auto 0.3 % (0-2); Eosinophils Absolute Auto 0.1 X10*3/uL (0.0-0.4); Eosinophils Percent Auto 2.9 % (0-4); Hematocrit 22.9 % (42-52); Imm Gran Abs Auto 0.05 X10*3/uL (0.00-0.03); Imm Gran Pct Auto 1.4 % (0.0-0.4); Lymphocytes Absolute Auto 0.2 X10*3/uL (1.2-4.9); Lymphocytes Percent Auto 5.8 % (20-40); MANUAL DIFF FLAG SCAN; Mean Corpuscular HGB Conc 29.3 g/dl (31.0-36.0); Mean Corpuscular Volume 102.7 fL (80-98); Mean Platelet Volume 12.1 fL (9.4-12.4); Monocytes Absolute Auto 0.2 X10*3/uL (0.1-1.2); Monocytes Percent Auto 5.5 % (2-11); NRBC Pct Auto 0.9 /100WBC (0.0-0.2); Neutrophils Absolute Auto 2.9 X10*3/uL (2.0-8.3); Neutrophils Percent Auto 84.1 % (45-73); Platelet Count 100 X10*3/uL (160-400); Red Blood Count 2.23 X10*6/uL (4.60-5.80); Red Cell Distribution Width 16.9 % (11.0-16.0); SCAN SMEAR FLAG 1; White Blood Count 3.5 X10*3/uL (4.8-10.8)
[2020-05-16 05:30] LABS: Hemoglobin 6.7 g/dl (14.0-18.0)
[2020-05-16 05:33] LABS: HCO3 VBG 17 mmol/L; PCO2 VBG 40 mmHg; PO2 VBG 71 mmHg; pH VBG 7.22 (7.32-7.43)
[2020-05-16 05:34] LABS: Base Excess VBG -9.3 mmol/L
[2020-05-16 05:50] LABS: Lactic Acid 0.8 mmol/L (0.5-2.0); SLIDE REVIEW VERIFIED
[2020-05-16 05:59] LABS: B Type Natriuretic Peptide 247 pg/mL (<100)
[2020-05-16 06:01] LABS: D Dimer 10865 NG/ML
[2020-05-16 06:14] LABS: Albumin Level 2.9 g/dL (3.5-5.0); Alkaline Phosphatase 37 U/L (39-117); Anion Gap 20 (12-20); Aspartate Amino Transferase 24 U/L (5-37); Blood Urea Nitrogen 117 mg/dL (9-16); C Reactive Protein 13.57 mg/dL (< or = 0.50); Calcium 7.7 mg/dL (8.4-10.2); Carbon Dioxide 18 mmol/L (22-29); Chloride 108 mmol/L (96-108); Estimated Glomerular Filt Rate 8; Glucose Random 253 mg/dL (60-115); Potassium 4.5 mmol/L (3.3-5.1); Sodium 141 mmol/L (135-145); Total Protein 5.7 g/dL (6.5-8.0)
[2020-05-16 06:16] LABS: Alanine Aminotransferase 21 U/L (0-40)
[2020-05-16 06:57] LABS: Procalcitonin 2.69 ng/mL
[2020-05-16 07:00] LABS: Glucose, Whole Blood 228 mg/dL (60-115)
[2020-05-16] MEDS: Artificial Tears Ophth Oint 3.5 GM TUBE 1 APPL EYE-BOTH (07:44)
[2020-05-16] MEDS: Chlorhexidine Gluc Oral Rinse 15 ML MOUTHWASH BUCCAL (07:44)
[2020-05-16] MEDS: Insulin Regular/NS 100 UNIT/100 ML PLAST..BAG 12 UNIT IVCONT (07:44)
[2020-05-16] MEDS: Nystatin Powder 15 GM BOTTLE 1 APPL TOPICAL (07:44)
[2020-05-16 08:57] LABS: Glucose, Whole Blood 200 mg/dL (60-115)
--- NOTE | 2020-05-16 10:21 | PM.CCPN ---
Subjective Subjective Date of Service: 05/16/20 Interval History: Mr. Cortez was admitted to ICU May 03 with acute hypoxemic respiratory failure secondary to COVID pneumonia. The patient is a 49 yo man with PMHx of super morbid obesity (5?8?, 205 kg), Pickwickian syndrome, right heart failure, and cor pulmonale, with CKD (baseline creat about 1.5) and probable cardiorenal syndrome; DM, HTN, chronic lymphedema, chronic pain on opiates, h/o kidney stones, pancytopenia, and s/p Rt. BKA. Past history of noncompliance with CPAP at home. I originally got to know the patient at the end of Mar, 2020 when we admitted him to ICU for hypercarbic respiratory failure with CO2 narcosis. COVID PCR was negative on April 06. In ICU, he was diuresed 40 liters with a diuretic infusion. Creatinine got down to 1.9. He was discharged from the hospital on April 21 on torsemide 40 mg, and Aldactone 25 mg. He presented to the ED on May 03 complaining of dyspnea. Had sat of 50% on room air at home. He reported that he tested positive for COVID-19 on May 01, although that was not here at [place]. In the ED, required BiPAP to get his Sat up. CXR showed marked flocculent bilateral opacities consistent with diffuse infiltrate and/or edema. BUN/creat were 94/2.7, BNP 218, DDimer 1900, Ferritin 2800, AST 340, CRP 26, PCT 1.2. Ultimately he was intubated in ED and admitted to ICU. He was treated with Decadron, empiric antibiotics, one unit of plasma, 4 doses of remdesivir, and diuresis. Abx were d/c?d on 05/07. Last cultures on 05/06 were negative except for stenotrophomonas which grew out of in unimpressive sputum gram stain on 05/06 for that the patient was put on inhaled tobramycin. His renal indices nadired on 05/09 at 48/1.46 but have been rising since then. Lasix was held. Head CT on 05/10, done looking for possible thalamic infarct as cause of his fever, was negative x for sinus dz, showing air-fluid levels in the ethmoid and sphenoid sinuses and frontal sinus. Renal indices have been rising since 05/10. On 05/12, urine output slowed dramatically and he became almost aneuric. But urine output has picked up a little over last 3 days, now averaging about 500cc/day. On May 14, we started him on meropenam for sinusitis on head CT. Yesterday morning we stopped his propofol infusion, so he?s been off for 23 hours. He?s on fent @ 200ug. He grimaces or localizes to pain, but he?s otherwise noninteractive. No eye opening, no extremity movement. See Vital Signs below. Still febrile to 101+? He?s on Levophed at 0.05ug. HR 95, SR, BP 139/56. Vent setting is PC rate 28, press 28/10, 45%, with PIP 40, RR 30, Vt about 580cc, Ve 18L, and Sat 96%, ETCO2 34. CVBG this morning showed 7.22/40/-9. Adjusted vent settings down to reduce rate, insp press, FiO2, and PEEP. Pupils 5 mm about equal (couldn?t get a very good look today bec the patient resists). No obvious JVD. Normal exp phase. About 1+ anasarca. From yesterday?s exam, has unstageable midline sacral pressure ulcer in the cleft above his anus; measures about 2 x 4?. No worse than stage 2 (i.e not into muscle). I?ll look at it later today with the nurses. LABORATORY DATA: As below. Notably, BUN and creatinine are up to 117/7.6, potassium is up to 4.5, bicarb is down to 18, and the phos is up [place] 6.0[place] [address], CRP up to 13, PCT up to 2.6. BNP is only 247. IMAGING: Duplex scan yesterday of his LEs was negative. Echo 04/07 was reported as follows: - 1. Technically extremely limited study despite use of contrast agent due to patient's body habitus. - 2. Right-sided chambers not evaluated [unable to be visualized]. - 3. LV systolic function appeared preserved with LVEF of greater than 50% with pseudonormal filling with mild LVH - 4. Cardiac valves not well evaluated - 5. RV systolic pressure unable to be calculated IMPRESSION: 1. Super morbid obesity. 2. Baseline Pickwickian syndrome. 3. Baseline right heart failure, w presumed cor pulmonale. 4. Bilateral COVID pneumonia with ARDS. S/P 10 days of Decadron. Improving oxygenation implies that he?s getting better. 5. Acute hypoxemic respiratory failure. As bad as he?s doing, his oxygenation could be much worse, so that?s in his favor. But because of his super morbid obesity, and the length of this current hospitalization, he won?t make it without a tracheostomy and PEG -- if he survives. No clear need for steroids at this time. 6. Acute on chronic kidney disease, with baseline cardiorenal syndrome (by history, primarily his renal indices). We?ve stopped the diuresis. His potassium, phos, and bicarb are still not mandating dialysis, but uremia could be the cause of his AMS. Discussed with Dr. Baxter from Renal. We?ll plan on dialyzing him today or tomorrow if the family agrees. In preparation, I put a 16cm left subclavian central venous line in yesterday, but it was too short, and was unable to be rewired to a 20 cm catheter, so we?ll try again today. 7. AMS. Nothing on CT scan on 05/10. Toxic/metabolic is the default etiology. 8. Diabetes. On insulin drip, currently 12u/hr, and reasonably well controlled. 9. DDimer bump. For now, continue anticoagulation with only heparin 5000 u q8hr. 10. Pancytopenia. Chronic. 11. ID: Still febrile. No response yet to meropenam. 12. Sacral pressure ulcer. Local care OK for now, as directed by wound team. 13. Propofol dosing. Altho currently being held, at 35ug/kg/min, that?s > 400 mg/hr. Need to check a daily lactate to guard against propofol infusion syndrome. Prognosis is grave. His survival is dubious. In past years, we've had no survival among pts with the combination of right heart failure/cardiorenal syndrome/resp failure/renal failure. Spoke with the family yesterday (oldest brother, Chaov Quintanilla, ). Waiting for a call back in regards to whether or not they want to embark on this road of dialysis, tracheostomy, PEG, jail nursing care. ADDENDUM at 13:50: I spoke with Chavo three times this morning. I've emphasized the importance of substitute decision making. He's spoken to all the siblings, and unanimously, they all emphatically felt that Kenny would not want this. I discussed with Chavo that we would proceed with DESTATICIZER FEEDER status and extubation. He is in full agreement. (The ICU staff is also in unanimous agreement, as is an outside j2ee consultant from the ICU at [facility], who I ran the case by anonymously.) ADDENDUM at 1620: The patient was extubated to room air. He was comfortable. He became apenic and asystolic a short time later. Time of was 1503 on May 16, 2020. I called Chavo and let him know. He will tell all his siblings. Critical care time: 120+ min. Physical Exam Vital Signs: Vital Signs: Last Vital Signs Temp 101.3 F H 05/16/20 10:00 Pulse 93 05/16/20 10:00 Resp 31 H 05/16/20 10:00 BP 139/56 L 05/16/20 10:00 Pulse Ox 94 05/16/20 10:00 Body Mass Index 68.7 Objective Data Labs CBC & Chem 7: 05/16/20 05:20 05/16/20 05:20 Labs: Laboratory Results - last 24 hr 05/15/20 05/15/20 05/15/20 10:23 14:12 17:54 WBC RBC Hgb Hct MCV MCH MCHC RDW Plt Count MPV Immature Gran % (Auto) Neut % (Auto) Lymph % (Auto) [place] % (Auto) Eos % (Auto) Baso % (Auto) Lymph # (Auto) [place] # (Auto) Eos # (Auto) Baso # (Auto) Abs Immat Gran (auto) Absolute Neuts (auto) Absolute Nucleated RBC Nucleated RBC % (auto) Smear Tech's Comments D-Dimer VBG pH VBG pCO2 VBG pO2 VBG HCO3 VBG O2 Saturation VBG Base Excess Sodium Potassium Chloride Carbon Dioxide Anion Gap BUN Creatinine Estim Creat Clear Calc Estimated GFR POC Glucose 183 H 207 H 201 H Random Glucose Lactic Acid Calcium Phosphorus Total Bilirubin AST ALT Alkaline Phosphatase C-Reactive Protein B-Natriuretic Peptide Total Protein Albumin Procalcitonin Blood Type Antibody Screen Crossmatch 05/15/20 05/16/20 05/16/20 22:30 02:09 05:20 WBC 3.5 L RBC 2.23 L Hgb 6.7 L* Hct 22.9 L MCV 102.7 H MCH 30.0 MCHC 29.3 L RDW 16.9 H Plt Count 100 L MPV 12.1 Immature Gran % (Auto) 1.4 H Neut % (Auto) 84.1 H Lymph % (Auto) 5.8 L [place] % (Auto) 5.5 Eos % (Auto) 2.9 Baso % (Auto) 0.3 Lymph # (Auto) 0.2 L [place] # (Auto) 0.2 Eos # (Auto) 0.1 Baso # (Auto) 0.0 Abs Immat Gran (auto) 0.05 H Absolute Neuts (auto) 2.9 Absolute Nucleated RBC 0.030 H Nucleated RBC % (auto) 0.9 H Smear Tech's Comments VERIFIED D-Dimer VBG pH VBG pCO2 VBG pO2 VBG HCO3 VBG O2 Saturation VBG Base Excess Sodium Potassium Chloride Carbon Dioxide Anion Gap BUN Creatinine Estim Creat Clear Calc Estimated GFR POC Glucose 166 H 228 H Random Glucose Lactic Acid Calcium Phosphorus Total Bilirubin AST ALT Alkaline Phosphatase C-Reactive Protein B-Natriuretic Peptide Total Protein Albumin Procalcitonin Blood Type Antibody Screen Crossmatch 05/16/20 05/16/20 05/16/20 05:20 05:20 05:20 WBC RBC Hgb Hct MCV MCH MCHC RDW Plt Count MPV Immature Gran % (Auto) Neut % (Auto) Lymph % (Auto) [place] % (Auto) Eos % (Auto) Baso % (Auto) Lymph # (Auto) [place] # (Auto) Eos # (Auto) Baso # (Auto) Abs Immat Gran (auto) Absolute Neuts (auto) Absolute Nucleated RBC Nucleated RBC % (auto) Smear Tech's Comments D-Dimer 08449 VBG pH VBG pCO2 VBG pO2 VBG HCO3 VBG O2 Saturation VBG Base Excess Sodium 141 Potassium 4.5 Chloride 108 Carbon Dioxide 18 L Anion Gap 20 BUN 117 H* Creatinine 7.69 H* Estim Creat Clear Calc 20.0 Estimated GFR 8 POC Glucose Random Glucose 253 H D Lactic Acid 0.8 Calcium 7.7 L Phosphorus 6.0 H Total Bilirubin 1.0 AST 24 ALT 21 Alkaline Phosphatase 37 L C-Reactive Protein 13.57 H B-Natriuretic Peptide Total Protein 5.7 L Albumin 2.9 L Procalcitonin Blood Type Antibody Screen Crossmatch 05/16/20 05/16/20 05/16/20 05:20 05:20 05:20 WBC RBC Hgb Hct MCV MCH MCHC RDW Plt Count MPV Immature Gran % (Auto) Neut % (Auto) Lymph % (Auto) [place] % (Auto) Eos % (Auto) Baso % (Auto) Lymph # (Auto) [place] # (Auto) Eos # (Auto) Baso # (Auto) Abs Immat Gran (auto) Absolute Neuts (auto) Absolute Nucleated RBC Nucleated RBC % (auto) Smear Tech's Comments D-Dimer VBG pH 7.22 L VBG pCO2 40 VBG pO2 71 VBG HCO3 17 VBG O2 Saturation 91.0 VBG Base Excess -9.3 Sodium Potassium Chloride Carbon Dioxide Anion Gap BUN Creatinine Estim Creat Clear Calc Estimated GFR POC Glucose Random Glucose Lactic Acid Calcium Phosphorus Total Bilirubin AST ALT Alkaline Phosphatase C-Reactive Protein B-Natriuretic Peptide 247 H Total Protein Albumin Procalcitonin 2.69 Blood Type Antibody Screen Crossmatch 05/16/20 05/16/20 06:13 08:54 WBC RBC Hgb Hct MCV MCH MCHC RDW Plt Count MPV Immature Gran % (Auto) Neut % (Auto) Lymph % (Auto) [place] % (Auto) Eos % (Auto) Baso % (Auto) Lymph # (Auto) [place] # (Auto) Eos # (Auto) Baso # (Auto) Abs Immat Gran (auto) Absolute Neuts (auto) Absolute Nucleated RBC Nucleated RBC % (auto) Smear Tech's Comments D-Dimer VBG pH VBG pCO2 VBG pO2 VBG HCO3 VBG O2 Saturation VBG Base Excess Sodium Potassium Chloride Carbon Dioxide Anion Gap BUN Creatinine Estim Creat Clear Calc Estimated GFR POC Glucose 200 H Random Glucose Lactic Acid Calcium Phosphorus Total Bilirubin AST ALT Alkaline Phosphatase C-Reactive Protein B-Natriuretic Peptide Total Protein Albumin Procalcitonin Blood Type A Negative Antibody Screen NEGATIVE Crossmatch See Detail Microbiology Microbiology Results: Microbiology 05/14/20 15:15 Sputum - Suctioned Gram Stain - Final 05/14/20 15:15 Sputum - Suctioned Sputum Culture - Preliminary Normal so far. 05/14/20 14:16 Blood - Venous Blood Culture - Preliminary No growth after 24 hours. 05/14/20 Unknown Blood - Venous Blood Culture - Preliminary No growth after 24 hours. 05/14/20 14:27 Urine clean catch - Clean Catch Midstream Urine Culture - Final 05/06/20 16:38 Blood - Venous Blood Culture - Final No growth after 5 days. 05/06/20 16:37 Blood - Venous Blood Culture - Final No growth after 5 days. 05/05/20 10:36 Blood - Venous Blood Culture - Final No growth after 5 days. 05/05/20 10:36 Blood - Venous Blood Culture - Final No growth after 5 days. 05/06/20 16:37 Urine Catheterized - Moser Catheter Urine Culture - Final No growth. 05/06/20 12:03 Sputum - Suctioned Gram Stain - Final 05/06/20 12:03 Sputum - Suctioned Sputum Culture - Final Stenotrophomonas maltophilia 05/03/20 16:12 Blood - Venous Blood Culture - Final No growth after 5 days. 05/04/20 08:10 Sputum - Suctioned Gram Stain - Final 05/04/20 08:10 Sputum - Suctioned Sputum Culture - Final 05/03/20 16:12 Blood - Venous Blood Culture - Final Corynebacterium species 05/04/20 10:00 Urine Catheterized - Moser Catheter Urine Culture - Final No growth. Progress Note: A&P Time Spent With Patient Time: Total time spent is greater than 50% in coordination of care (as documented) at patient's floor/unit and/or counseling patient: Total time spent with greater than 50% in coordination of care (as documented) at patient's floor/unit and/or counseling patient:: 0 Critical Care Time Critical Care Time (minutes): 120
--- NOTE | 2020-05-16 10:22 | MHC.CLN ---
F/U PT RECEIVING GLUCERNA AT 30CC/HR WITH 300CC Q 6 HRS TO PROVIDE 880KCALS (1900KCALS WITH SEDATION & JONI; 29KCALS/KG), 35G PROTEIN (.54G/KG WITH JONI), 1814CC TOTAL FREE WATER FROM FORMULA AND FLUSHES JONI IN PLACE VIA OG TO SUPPORT WOUND HEALING WILL D/C FREE WATER FLUSHES PER MD CONTINUE TO MONITOR TOLERANCE, RESIDUALS AND LYTES
[2020-05-16 10:24] LABS: Glucose, Whole Blood 194 mg/dL (60-115)
[2020-05-16] MEDS: Tobramycin Sulfate 80 MG/2 ML VIAL 300 MG INHALE (10:41)
--- NOTE | 2020-05-16 12:09 | PM.PNNEP ---
Subjective Subjective Date of Service: 05/16/20 Interval history: Events noted; All recent data reviewed Physical Exam Vital Signs: Vital Signs: Last Vital Signs Temp 101.5 F H 05/16/20 12:00 Pulse 102 H 05/16/20 12:00 Resp 32 H 05/16/20 12:00 BP 142/55 H 05/16/20 12:00 Pulse Ox 88 L 05/16/20 12:00 Body Mass Index 68.7 Const: Other: Intubated Resp: Auscultation: diminished lung sounds Cardio: Rate: regular rate GI: Palpation (GI): Soft to palpation Neuro: Other: Sedated Objective Data Labs CBC & Chem 7: 05/16/20 05:20 05/16/20 05:20 Labs: Laboratory Results - last 24 hr 05/15/20 05/15/20 05/15/20 14:12 17:54 22:30 WBC RBC Hgb Hct MCV MCH MCHC RDW Plt Count MPV Immature Gran % (Auto) Neut % (Auto) Lymph % (Auto) [place] % (Auto) Eos % (Auto) Baso % (Auto) Lymph # (Auto) [place] # (Auto) Eos # (Auto) Baso # (Auto) Abs Immat Gran (auto) Absolute Neuts (auto) Absolute Nucleated RBC Nucleated RBC % (auto) Smear Tech's Comments D-Dimer VBG pH VBG pCO2 VBG pO2 VBG HCO3 VBG O2 Saturation VBG Base Excess Sodium Potassium Chloride Carbon Dioxide Anion Gap BUN Creatinine Estim Creat Clear Calc Estimated GFR POC Glucose 207 H 201 H 166 H Random Glucose Lactic Acid Calcium Phosphorus Total Bilirubin AST ALT Alkaline Phosphatase C-Reactive Protein B-Natriuretic Peptide Total Protein Albumin Procalcitonin Blood Type Antibody Screen Crossmatch 05/16/20 05/16/20 05/16/20 02:09 05:20 05:20 WBC 3.5 L RBC 2.23 L Hgb 6.7 L* Hct 22.9 L MCV 102.7 H MCH 30.0 MCHC 29.3 L RDW 16.9 H Plt Count 100 L MPV 12.1 Immature Gran % (Auto) 1.4 H Neut % (Auto) 84.1 H Lymph % (Auto) 5.8 L [place] % (Auto) 5.5 Eos % (Auto) 2.9 Baso % (Auto) 0.3 Lymph # (Auto) 0.2 L [place] # (Auto) 0.2 Eos # (Auto) 0.1 Baso # (Auto) 0.0 Abs Immat Gran (auto) 0.05 H Absolute Neuts (auto) 2.9 Absolute Nucleated RBC 0.030 H Nucleated RBC % (auto) 0.9 H Smear Tech's Comments VERIFIED D-Dimer [id number] VBG pH VBG pCO2 VBG pO2 VBG HCO3 VBG O2 Saturation VBG Base Excess Sodium Potassium Chloride Carbon Dioxide Anion Gap BUN Creatinine Estim Creat Clear Calc Estimated GFR POC Glucose 228 H Random Glucose Lactic Acid Calcium Phosphorus Total Bilirubin AST ALT Alkaline Phosphatase C-Reactive Protein B-Natriuretic Peptide Total Protein Albumin Procalcitonin Blood Type Antibody Screen Crossmatch 05/16/20 05/16/20 05/16/20 05:20 05:20 05:20 WBC RBC Hgb Hct MCV MCH MCHC RDW Plt Count MPV Immature Gran % (Auto) Neut % (Auto) Lymph % (Auto) [place] % (Auto) Eos % (Auto) Baso % (Auto) Lymph # (Auto) [place] # (Auto) Eos # (Auto) Baso # (Auto) Abs Immat Gran (auto) Absolute Neuts (auto) Absolute Nucleated RBC Nucleated RBC % (auto) Smear Tech's Comments D-Dimer VBG pH VBG pCO2 VBG pO2 VBG HCO3 VBG O2 Saturation VBG Base Excess Sodium 141 Potassium 4.5 Chloride 108 Carbon Dioxide 18 L Anion Gap 20 BUN 117 H* Creatinine 7.69 H* Estim Creat Clear Calc 20.0 Estimated GFR 8 POC Glucose Random Glucose 253 H D Lactic Acid 0.8 Calcium 7.7 L Phosphorus 6.0 H Total Bilirubin 1.0 AST 24 ALT 21 Alkaline Phosphatase 37 L C-Reactive Protein 13.57 H B-Natriuretic Peptide 247 H Total Protein 5.7 L Albumin 2.9 L Procalcitonin Blood Type Antibody Screen Crossmatch 05/16/20 05/16/20 05/16/20 05:20 05:20 06:13 WBC RBC Hgb Hct MCV MCH MCHC RDW Plt Count MPV Immature Gran % (Auto) Neut % (Auto) Lymph % (Auto) [place] % (Auto) Eos % (Auto) Baso % (Auto) Lymph # (Auto) [place] # (Auto) Eos # (Auto) Baso # (Auto) Abs Immat Gran (auto) Absolute Neuts (auto) Absolute Nucleated RBC Nucleated RBC % (auto) Smear Tech's Comments D-Dimer VBG pH 7.22 L VBG pCO2 40 VBG pO2 71 VBG HCO3 17 VBG O2 Saturation 91.0 VBG Base Excess -9.3 Sodium Potassium Chloride Carbon Dioxide Anion Gap BUN Creatinine Estim Creat Clear Calc Estimated GFR POC Glucose Random Glucose Lactic Acid Calcium Phosphorus Total Bilirubin AST ALT Alkaline Phosphatase C-Reactive Protein B-Natriuretic Peptide Total Protein Albumin Procalcitonin 2.69 Blood Type A Negative Antibody Screen NEGATIVE Crossmatch See Detail 05/16/20 05/16/20 08:54 10:20 WBC RBC Hgb Hct MCV MCH MCHC RDW Plt Count MPV Immature Gran % (Auto) Neut % (Auto) Lymph % (Auto) [place] % (Auto) Eos % (Auto) Baso % (Auto) Lymph # (Auto) [place] # (Auto) Eos # (Auto) Baso # (Auto) Abs Immat Gran (auto) Absolute Neuts (auto) Absolute Nucleated RBC Nucleated RBC % (auto) Smear Tech's Comments D-Dimer VBG pH VBG pCO2 VBG pO2 VBG HCO3 VBG O2 Saturation VBG Base Excess Sodium Potassium Chloride Carbon Dioxide Anion Gap BUN Creatinine Estim Creat Clear Calc Estimated GFR POC Glucose 200 H 194 H Random Glucose Lactic Acid Calcium Phosphorus Total Bilirubin AST ALT Alkaline Phosphatase C-Reactive Protein B-Natriuretic Peptide Total Protein Albumin Procalcitonin Blood Type Antibody Screen Crossmatch Microbiology Microbiology Results: Microbiology 05/14/20 15:15 Sputum - Suctioned Gram Stain - Final 05/14/20 15:15 Sputum - Suctioned Sputum Culture - Preliminary Normal so far. 05/14/20 14:16 Blood - Venous Blood Culture - Preliminary No growth after 24 hours. 05/14/20 Unknown Blood - Venous Blood Culture - Preliminary No growth after 24 hours. 05/14/20 14:27 Urine clean catch - Clean Catch Midstream Urine Culture - Final 05/06/20 16:38 Blood - Venous Blood Culture - Final No growth after 5 days. 05/06/20 16:37 Blood - Venous Blood Culture - Final No growth after 5 days. 05/05/20 10:36 Blood - Venous Blood Culture - Final No growth after 5 days. 05/05/20 10:36 Blood - Venous Blood Culture - Final No growth after 5 days. 05/06/20 16:37 Urine Catheterized - Moser Catheter Urine Culture - Final No growth. 05/06/20 12:03 Sputum - Suctioned Gram Stain - Final 05/06/20 12:03 Sputum - Suctioned Sputum Culture - Final Stenotrophomonas maltophilia 05/03/20 16:12 Blood - Venous Blood Culture - Final No growth after 5 days. 05/04/20 08:10 Sputum - Suctioned Gram Stain - Final 05/04/20 08:10 Sputum - Suctioned Sputum Culture - Final 05/03/20 16:12 Blood - Venous Blood Culture - Final Corynebacterium species 05/04/20 10:00 Urine Catheterized - Moser Catheter Urine Culture - Final No growth. Assessment & Plan Assessment and plan (1) JOSE (acute kidney injury): Problem details: JOSE due to tubular injury with profound oliguria and hypervolemia in a COVID patient with PNA with MOF who has CKD 3 at baseline. Needs renal replacement therapy. ICU Attending awaiting call from HCP/Family regarding HD/ Trach etc. He will insert HD catheter and Dialysis will be initiated if we are going that route . insole channeler aware and HD orders are in . Further renal replacement will be based on evolving data Status: Acute Time Spent With Patient Time: Total time spent is greater than 50% in coordination of care (as documented) at patient's floor/unit and/or counseling patient:
[2020-05-16 13:55] LABS: Glucose, Whole Blood 181 mg/dL (60-115)
[2020-05-16] MEDS: HYDROmorphone HCl 2 MG/ML VIAL IVPUSH (14:37)
[2020-05-16] MEDS: LORazepam 2 MG/ML VIAL IVPUSH (14:37)
--- NOTE | 2020-05-16 14:56 | MHC.CM.PN ---
Review of EMR notes pt's poor prognosis and likely need for trach, peg, and HD. Family is presently in conference to discuss goals of care after MD discussion. CM to follow should family decide on continued aggressive treatment and possible LTAC placement.
--- NOTE | 2020-05-16 15:18 | PC.NURSE ---
Pt intubated at start of shift, off propofol since 1100 05/15, on fentanyl 200mcg/hr. Slightly overbreathing vent, pupils unreactive, flaccid. 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 All drips d/c except fentanyl increased to 400mcg/hr. Pt given 2mg IVP dilaudid, 2mg IVP ativan at 1450, at this time pt was extubated per RT. Pt PEA at 1500, 1503 asystole. Organ bank notified, denied. MD Ellison aware.
--- NOTE | 2020-05-16 19:13 | W.PM.CCHP ---
Procedures Central Line Placement Patient had a triple lumen, 16 cm CVL on the left subclavian area which was placed by doctor Terra, apparently the catheter was only in there approximately 3-4 cm due to the patient's large body habitus. Therefore an attempt was made to replace these with a 20 cm catheter. After prepping the field in a sterile fashion, doing a thorough cleanup of the site as well as line in place, the line was pulled back slightly and it was clamped with a forcep. The 3 ports were cut and main port was marked. With the help of a nurse, the catheter was unclamped, the wire was inserted, the all catheter was threaded however upon replacing it with a new catheter, I could not advance it and it repeatedly bended. I pulled the line out an aborted the procedure, apply pressure and a sterile dressing was placed. Subsequently with the use of ultrasound, I attempted to place a left IJ, propofol and rocuronium was given for sedation and paralyzation for the patient was somewhat awake and was moving, his breathing pattern was also somewhat complicated. After 3 attempts, I was not able to reach deep enough into the vessel due to the patient's thick body habitus. Toward the end of the procedure attempt, we noted the patient was having desaturations from the mid 90s down into the mid 80s and his heart rate went up to the 120s, in addition the tidal volumes were low in the 200s. The consideration for a pneumothorax was made and an x-ray was ordered. After reviewing lines, I turned out that the patient had some type of obstruction in the proximal aspect of the endotracheal tube which was corrected, patient was suction and tidal volumes went up to the 400s, O2 sat immediately when a up to low 90s and later to mid 90s. The chest x-ray was reviewed, a central line is noted on the right IJ area with the tip at the SVC, there is no evidence of pneumothorax on the left. At this point, there would be more harm than benefit trying to continue to place a catheter on this patient, I have placed a consult with Interventional Radiology for a line to be placed by them early in the morning. Total time spent with this patient 60 minutes in this procedures. Case was discussed in detail with Dr. Ellison. He is aware of all the above as well as the plan of care for this patient.: Central Line Comments: LATE ENTRY PROCEDURE PERFORMED ON 05/15/20 AT 10 PM Consent for Procedure: Emergent-no informed consent obtained Time out performed: Yes Sterile Technique Used: Yes Patient placed on monitor/pulse ox: Yes prep: mask, gown and gloves Central line prep: Chlorhexidine scrub and sterile drapes applied Ultrasound used for placement: No Post procedure x-ray: other (Unable to replace left subclavian or to place IJ as described above) Patient tolerated procedure: no complications Complications: none
--- NOTE | 2020-05-16 21:24 | PM.DS ---
DS: Providers Provider Date of Service: 05/17/20 Date of admission: 05/03/20 17:44 Primary care physician: Unknown Physician Consults: REASON FOR : MULTIORGAN FAILURE CARDIORENAL SYNDROME RESPIRATORY FAILURE RENAL FAILURE Dr. Ellison spoke with Chavo three times this morning. I've emphasized the importance of substitute decision making. He's spoken to all the siblings, and unanimously, they all emphatically felt that Kenny would not want this. He discussed with Chavo that we would proceed with [employer] status and extubation. He is in full agreement. (The ICU staff is also in unanimous agreement, as is an outside campaign consultant from the ICU at [facility], who he ran the case by anonymously.) The patient was extubated by Dr Ellison to room air. Apparently he was comfortable. He became apenic and asystolic a short time later. Time of was 1503 on May 16, 2020. Dr Ellison called Chavo and let him know. He will tell all his siblings. DISCHARGE DIAGNOSIS: 1. Super morbid obesity. 2. Baseline Pickwickian syndrome. 3. Baseline right heart failure, w presumed cor pulmonale. 4. Bilateral COVID pneumonia with ARDS. S/P 10 days of Decadron. Improving oxygenation implies that he?s getting better. 5. Acute hypoxemic respiratory failure. As bad as he?s doing, his oxygenation could be much worse, so that?s in his favor. But because of his super morbid obesity, and the length of this current hospitalization, he won?t make it without a tracheostomy and PEG -- if he survives. No clear need for steroids at this time. 6. Acute on chronic kidney disease, with baseline cardiorenal syndrome (by history, primarily his renal indices). We?ve stopped the diuresis. His potassium, phos, and bicarb are still not mandating dialysis, but uremia could be the cause of his AMS. Discussed with Dr. Baxter from Renal. We?ll plan on dialyzing him today or tomorrow if the family agrees. In preparation, I put a 16cm left subclavian central venous line in yesterday, but it was too short, and was unable to be rewired to a 20 cm catheter, so we?ll try again today. 7. AMS. Nothing on CT scan on 05/10. Toxic/metabolic is the default etiology. 8. Diabetes. On insulin drip, currently 12u/hr, and reasonably well controlled. 9. DDimer bump. For now, continue anticoagulation with only heparin 5000 u q8hr. 10. Pancytopenia. Chronic. 11. ID: Still febrile. No response yet to meropenam. 12. Sacral pressure ulcer. Local care OK for now, as directed by wound team. 13. Propofol dosing. Altho currently being held, at 35ug/kg/min, that?s > 400 mg/hr. Need to check a daily lactate to guard against propofol infusion syndrome. HPI AND HOSPITAL SUMMARY : Mr. Cortez was admitted to ICU May 03 with acute hypoxemic respiratory failure secondary to COVID pneumonia. The patient is a 49 yo man with PMHx of super morbid obesity (5?8?, 205 kg), Pickwickian syndrome, right heart failure, and cor pulmonale, with CKD (baseline creat about 1.5) and probable cardiorenal syndrome; DM, HTN, chronic lymphedema, chronic pain on opiates, h/o kidney stones, pancytopenia, and s/p Rt. BKA. Past history of noncompliance with CPAP at home. Dr Ellison originally got to know the patient at the end of Mar, 2020 when we admitted him to ICU for hypercarbic respiratory failure with CO2 narcosis. COVID PCR was negative on April 06. In ICU, he was diuresed 40 liters with a diuretic infusion. Creatinine got down to 1.9. He was discharged from the hospital on April 21 on torsemide 40 mg, and Aldactone 25 mg. He presented to the ED on May 03 complaining of dyspnea. Had sat of 50% on room air at home. He reported that he tested positive for COVID-19 on May 01, although that was not here at [place]. In the ED, required BiPAP to get his Sat up. CXR showed marked flocculent bilateral opacities consistent with diffuse infiltrate and/or edema. BUN/creat were 94/2.7, BNP 218, DDimer 1900, Ferritin 2800, AST 340, CRP 26, PCT 1.2. Ultimately he was intubated in ED and admitted to ICU. He was treated with Decadron, empiric antibiotics, one unit of plasma, 4 doses of remdesivir, and diuresis. Abx were d/c?d on 05/07. Last cultures on 05/06 were negative except for stenotrophomonas which grew out of in unimpressive sputum gram stain on 05/06 for that the patient was put on inhaled tobramycin. His renal indices nadired on 05/09 at 48/1.46 but have been rising since then. Lasix was held. Head CT on 05/10, done looking for possible thalamic infarct as cause of his fever, was negative x for sinus dz, showing air-fluid levels in the ethmoid and sphenoid sinuses and frontal sinus. Renal indices have been rising since 05/10. On 05/12, urine output slowed dramatically and he became almost aneuric. But urine output has picked up a little over last 3 days, now averaging about 500cc/day. On May 14, we started him on meropenam for sinusitis on head CT. Yesterday 05/15/20 morning we stopped his propofol infusion, so he?s been off for 23 hours. He?s on fent @ 200ug. He grimaces or localizes to pain, but he?s otherwise noninteractive. No eye opening, no extremity movement. See Vital Signs below. Still febrile to 101+? He?s on Levophed at 0.05ug. HR 95, SR, BP 139/56. Vent setting is PC rate 28, press 28/10, 45%, with PIP 40, RR 30, Vt about 580cc, Ve 18L, and Sat 96%, ETCO2 34. CVBG this morning showed 7.22/40/-9. Adjusted vent settings down to reduce rate, insp press, FiO2, and PEEP. Pupils 5 mm about equal (couldn?t get a very good look today bec the patient resists). No obvious JVD. Normal exp phase. About 1+ anasarca. From yesterday?s exam, has unstageable midline sacral pressure ulcer in the cleft above his anus; measures about 2 x 4?. No worse than stage 2 (i.e not into muscle). LABORATORY DATA: As below. Notably, BUN and creatinine are up to 117/7.6, potassium is up to 4.5, bicarb is down to 18, and the phos is up to 6.0[place] [address], CRP up to 13, PCT up to 2.6. BNP is only 247. IMAGING: Duplex scan yesterday of his LEs was negative. Echo 04/07 was reported as follows: - 1. Technically extremely limited study despite use of contrast agent due to patient's body habitus. - 2. Right-sided chambers not evaluated [unable to be visualized]. - 3. LV systolic function appeared preserved with LVEF of greater than 50% with pseudonormal filling with mild LVH - 4. Cardiac valves not well evaluated - 5. RV systolic pressure unable to be calculated 05/04/20 09:36 Consult to Infectious Diseases Stat Consulting Provider: Darby Hull Reason for consultation: COVID for remdesivir 05/05/20 04:51 Consult to Wound Care Provider Routine Consulting Provider: Sarita Gloria Reason for consultation: sacral debubitus. Please see patient 2x/week Has provider been notified: Yes DS: Diagnosis Discharge Diagnosis (1) JOSE (acute kidney injury): Status: Acute Problem details: JOSE due to tubular injury with profound oliguria and hypervolemia in a COVID patient with PNA with MOF who has CKD 3 at baseline. Needs renal replacement therapy. ICU Attending awaiting call from HCP/Family regarding HD/ Trach etc. He will insert HD catheter and Dialysis will be initiated if we are going that route . bilingual legal assistant aware and HD orders are in . Further renal replacement will be based on evolving data DS: Medications Discharge Medications Home Medications: Home Medications Medication Instructions Recorded Confirmed acetaminophen 500 mg tablet 1,000 mg PO Q8-10H PRN 01/18/20 05/03/20 aspirin 81 mg tablet,delayed 81 mg PO DAILY 01/18/20 05/03/20 release calcium carbonate 500 mg calcium 500 mg PO DAILY 01/18/20 05/03/20 (1,250 mg) tablet clonidine HCl 0.1 mg tablet 0.1 mg PO BID 01/18/20 05/03/20 cyclobenzaprine 5 mg tablet 5 mg PO TID PRN 01/18/20 05/03/20 ferrous sulfate 325 mg (65 mg 325 mg PO DAILY 01/18/20 05/03/20 iron) tablet fluticasone propionate 50 1 spray INTRANASAL BID 01/18/20 05/03/20 mcg/actuation nasal spray,suspension melatonin 3 mg capsule 6 mg PO BEDTIME PRN 01/18/20 05/03/20 omeprazole 20 mg capsule,delayed 20 mg PO BID 01/18/20 05/03/20 release pravastatin 10 mg tablet 10 mg PO BEDTIME 01/18/20 05/03/20 topiramate 100 mg tablet 100 mg PO BEDTIME 01/18/20 05/03/20 trazodone 50 mg tablet 50 mg PO BEDTIME PRN 01/18/20 05/03/20 facial-body wipes #384 ea 02/20/20 05/02/20 levothyroxine 37.5 mcg PO DAILY 04/06/20 05/03/20 loperamide 2 mg PO Q4H PRN 05/03/20 05/03/20 Previous Rx's Medication Instructions Recorded naloxone 4 mg/actuation nasal spray 4 mg INTRANASAL Q2M PRN #2 ea 01/20/20 dicyclomine 20 mg tablet 20 mg PO QID #120 tab 02/09/20 disposable gloves #1000 ea 02/20/20 miscellaneous medical supply See Rx Instructions MISCELLANEOUS 03/12/20 .COMPLEX #1 ea morphine 15 mg immediate release 15 mg PO Q6H PRN 30 Days #120 tab 03/22/20 tablet torsemide 40 mg PO DAILY #0 tab 04/20/20 Humulin R U-500 (Conc) Kwikpen 75 unit SUBCUT BID #0 ml 04/21/20 lisinopril 5 mg PO DAILY #30 tab 04/21/20 spironolactone 25 mg PO DAILY #30 tab 04/21/20 cholecalciferol (vitamin D3) 25 25 mcg PO DAILY #90 cap 04/30/20 mcg (1,000 unit) capsule DS: Summary Time Spent with Patient Time attestation: Total time spent providing and/or coordinating discharge services: Discharge coordination time: Greater than 30 minutes Physical Exam Vital Signs: Vital Signs: Last Vital Signs Temp 101.5 F H 05/16/20 12:59 Pulse 101 H 05/16/20 12:59 Resp 35 H 05/16/20 12:59 BP 131/54 L 05/16/20 12:59 Pulse Ox 87 L 05/16/20 12:59 Body Mass Index 68.7 DS: Data Data Completed and Pending Completed studies during hospitalization [Text1]: Procedures Assistance with Respiratory Ventilation, Less than 24 Consecutive Hours, Continuous Positive Airway Pressure (04/06/20) Insertion of Infusion Device into Superior Vena Cava, Percutaneous Approach (04/06/20) Ultrasonography of Superior Vena Cava, Guidance (04/06/20) Labs on day of discharge: Laboratory Tests 05/03/20 05/03/20 05/03/20 16:09 16:09 16:09 WBC 4.4 L RBC 2.62 L D Hgb 7.9 L D Hct 25.7 L D MCV 98.1 H MCH 30.2 MCHC 30.7 L RDW 17.4 H Plt Count 107 L MPV 11.0 Immature Gran % (Auto) 1.8 H Neut % (Auto) 89.6 H Lymph % (Auto) 4.8 L [place] % (Auto) 3.4 Eos % (Auto) 0.2 Baso % (Auto) 0.2 Lymph # (Auto) 0.2 L [place] # (Auto) 0.2 Eos # (Auto) 0.0 Baso # (Auto) 0.0 Abs Immat Gran (auto) 0.08 H Absolute Neuts (auto) 3.9 Absolute Nucleated RBC 0.130 H Nucleated RBC % (auto) 3.0 H Smear Tech's Comments VERIFIED Smear Path Review SEE NOTE PT 18.8 H INR 1.6 H APTT 27.8 PTT (Heparin Protocol) D-Dimer 1964 VBG pH VBG pCO2 VBG pO2 VBG HCO3 VBG O2 Saturation VBG Base Excess Sodium 135 Potassium 5.5 H D Chloride 96 Carbon Dioxide 24 Anion Gap 21 H BUN 94 H* D Creatinine 2.74 H Estim Creat Clear Calc 52.2 Estimated GFR 25 POC Glucose Random Glucose 280 H Lactic Acid Calcium 6.5 L D Phosphorus Magnesium Ferritin Total Bilirubin 1.0 AST 342 H ALT 292 H Alkaline Phosphatase 90 D Lactate Dehydrogenase 809 H Total Creatine Kinase Troponin I High Sens C-Reactive Protein 26.11 H B-Natriuretic Peptide Total Protein 6.7 Albumin 3.3 L Lipase Procalcitonin Urine Color Urine Appearance Urine pH Ur Specific [place] Urine Protein Urine Glucose (UA) Urine Ketones Urine Blood Urine Nitrite Ur Leukocyte Esterase Urine RBC Urine WBC Ur Squamous Epith Cells Urine Bacteria Hyaline Casts Granular Casts Urine Yeast Stool Occult Blood Random Vancomycin Lyme Screen IgG & IgM Lyme Progressive Test C. difficile Toxin A&B C. difficile Antigen C. difficile Interpret Coronavirus (PCR) Influenza Type A (PCR) Influenza Type B (PCR) RSV RNA Qual (PCR) Blood Type Antibody Screen Crossmatch 05/03/20 05/03/20 05/03/20 16:09 16:09 16:09 WBC RBC Hgb Hct MCV MCH MCHC RDW Plt Count MPV Immature Gran % (Auto) Neut % (Auto) Lymph % (Auto) [place] % (Auto) Eos % (Auto) Baso % (Auto) Lymph # (Auto) [place] # (Auto) Eos # (Auto) Baso # (Auto) Abs Immat Gran (auto) Absolute Neuts (auto) Absolute Nucleated RBC Nucleated RBC % (auto) Smear Tech's Comments Smear Path Review PT INR APTT PTT (Heparin Protocol) D-Dimer VBG pH VBG pCO2 VBG pO2 VBG HCO3 VBG O2 Saturation VBG Base Excess Sodium Potassium Chloride Carbon Dioxide Anion Gap BUN Creatinine Estim Creat Clear Calc Estimated GFR POC Glucose Random Glucose Lactic Acid 1.9 Calcium Phosphorus Magnesium Ferritin 2874 H Total Bilirubin AST ALT Alkaline Phosphatase Lactate Dehydrogenase Total Creatine Kinase Troponin I High Sens 45.8 H D C-Reactive Protein B-Natriuretic Peptide Total Protein Albumin Lipase Procalcitonin Urine Color Urine Appearance Urine pH Ur Specific [place] Urine Protein Urine Glucose (UA) Urine Ketones Urine Blood Urine Nitrite Ur Leukocyte Esterase Urine RBC Urine WBC Ur Squamous Epith Cells Urine Bacteria Hyaline Casts Granular Casts Urine Yeast Stool Occult Blood Random Vancomycin Lyme Screen IgG & IgM Lyme Progressive Test C. difficile Toxin A&B C. difficile Antigen C. difficile Interpret Coronavirus (PCR) Influenza Type A (PCR) Influenza Type B (PCR) RSV RNA Qual (PCR) Blood Type Antibody Screen Crossmatch 05/03/20 05/03/20 05/03/20 16:09 16:09 16:12 WBC RBC Hgb Hct MCV MCH MCHC RDW Plt Count MPV Immature Gran % (Auto) Neut % (Auto) Lymph % (Auto) [place] % (Auto) Eos % (Auto) Baso % (Auto) Lymph # (Auto) [place] # (Auto) Eos # (Auto) Baso # (Auto) Abs Immat Gran (auto) Absolute Neuts (auto) Absolute Nucleated RBC Nucleated RBC % (auto) Smear Tech's Comments Smear Path Review PT INR APTT PTT (Heparin Protocol) D-Dimer VBG pH 7.23 L VBG pCO2 71 VBG pO2 41 VBG HCO3 30 VBG O2 Saturation 53.0 VBG Base Excess 2.0 Sodium Potassium Chloride Carbon Dioxide Anion Gap BUN Creatinine Estim Creat Clear Calc Estimated GFR POC Glucose Random Glucose Lactic Acid Calcium Phosphorus Magnesium Ferritin Total Bilirubin AST ALT Alkaline Phosphatase Lactate Dehydrogenase Total Creatine Kinase Troponin I High Sens C-Reactive Protein B-Natriuretic Peptide 218 H Total Protein Albumin Lipase Procalcitonin 1.26 Urine Color Urine Appearance Urine pH Ur Specific [place] Urine Protein Urine Glucose (UA) Urine Ketones Urine Blood Urine Nitrite Ur Leukocyte Esterase Urine RBC Urine WBC Ur Squamous Epith Cells Urine Bacteria Hyaline Casts Granular Casts Urine Yeast Stool Occult Blood Random Vancomycin Lyme Screen IgG & IgM Lyme Progressive Test C. difficile Toxin A&B C. difficile Antigen C. difficile Interpret Coronavirus (PCR) Influenza Type A (PCR) Influenza Type B (PCR) RSV RNA Qual (PCR) Blood Type Antibody Screen Crossmatch 05/03/20 05/03/20 05/03/20 16:14 17:22 17:49 WBC RBC Hgb Hct MCV MCH MCHC RDW Plt Count MPV Immature Gran % (Auto) Neut % (Auto) Lymph % (Auto) [place] % (Auto) Eos % (Auto) Baso % (Auto) Lymph # (Auto) [place] # (Auto) Eos # (Auto) Baso # (Auto) Abs Immat Gran (auto) Absolute Neuts (auto) Absolute Nucleated RBC Nucleated RBC % (auto) Smear Tech's Comments Smear Path Review PT INR APTT PTT (Heparin Protocol) D-Dimer VBG pH VBG pCO2 VBG pO2 VBG HCO3 VBG O2 Saturation VBG Base Excess Sodium Potassium Chloride Carbon Dioxide Anion Gap BUN Creatinine Estim Creat Clear Calc Estimated GFR POC Glucose Random Glucose Lactic Acid Calcium Phosphorus Magnesium Ferritin Total Bilirubin AST ALT Alkaline Phosphatase Lactate Dehydrogenase Total Creatine Kinase Troponin I High Sens C-Reactive Protein B-Natriuretic Peptide Total Protein Albumin Lipase Procalcitonin Urine Color Urine Appearance Urine pH Ur Specific [place] Urine Protein Urine Glucose (UA) Urine Ketones Urine Blood Urine Nitrite Ur Leukocyte Esterase Urine RBC Urine WBC Ur Squamous Epith Cells Urine Bacteria Hyaline Casts Granular Casts Urine Yeast Stool Occult Blood NEG Random Vancomycin Lyme Screen IgG & IgM Lyme Progressive Test C. difficile Toxin A&B C. difficile Antigen C. difficile Interpret Coronavirus (PCR) POSITIVE A Influenza Type A (PCR) NEGATIVE Influenza Type B (PCR) NEGATIVE RSV RNA Qual (PCR) NEGATIVE Blood Type A Negative Antibody Screen NEGATIVE Crossmatch See Detail 01/21/21 01/21/21 01/21/21 22:58 23:28 23:56 WBC RBC Hgb Hct MCV MCH MCHC RDW Plt Count MPV Immature Gran % (Auto) Neut % (Auto) Lymph % (Auto) [place] % (Auto) Eos % (Auto) Baso % (Auto) Lymph # (Auto) [place] # (Auto) Eos # (Auto) Baso # (Auto) Abs Immat Gran (auto) Absolute Neuts (auto) Absolute Nucleated RBC Nucleated RBC % (auto) Smear Tech's Comments Smear Path Review PT INR APTT PTT (Heparin Protocol) D-Dimer VBG pH 7.22 L VBG pCO2 57 VBG pO2 173 VBG HCO3 23 VBG O2 Saturation 97.0 VBG Base Excess -3.6 Sodium Potassium Chloride Carbon Dioxide Anion Gap BUN Creatinine Estim Creat Clear Calc Estimated GFR POC Glucose Random Glucose Lactic Acid 0.7 Calcium Phosphorus Magnesium Ferritin Total Bilirubin AST ALT Alkaline Phosphatase Lactate Dehydrogenase Total Creatine Kinase Troponin I High Sens C-Reactive Protein B-Natriuretic Peptide Total Protein Albumin Lipase Procalcitonin Urine Color LISA Urine Appearance HAZY Urine pH 5.5 Ur Specific [place] >= 1.030 H Urine Protein 2+ H Urine Glucose (UA) NEG Urine Ketones NEG Urine Blood 2+ H Urine Nitrite NEG Ur Leukocyte Esterase NEG Urine RBC 50-75 H Urine WBC 1-4 Ur Squamous Epith Cells 1+ Urine Bacteria 2+ Hyaline Casts Granular Casts Urine Yeast Stool Occult Blood Random Vancomycin Lyme Screen IgG & IgM Lyme Progressive Test C. difficile Toxin A&B C. difficile Antigen C. difficile Interpret Coronavirus (PCR) Influenza Type A (PCR) Influenza Type B (PCR) RSV RNA Qual (PCR) Blood Type Antibody Screen Crossmatch 05/04/20 05/04/20 05/04/20 01:40 02:42 03:40 WBC RBC Hgb Hct MCV MCH MCHC RDW Plt Count MPV Immature Gran % (Auto) Neut % (Auto) Lymph % (Auto) [place] % (Auto) Eos % (Auto) Baso % (Auto) Lymph # (Auto) [place] # (Auto) Eos # (Auto) Baso # (Auto) Abs Immat Gran (auto) Absolute Neuts (auto) Absolute Nucleated RBC Nucleated RBC % (auto) Smear Tech's Comments Smear Path Review PT INR APTT PTT (Heparin Protocol) D-Dimer VBG pH VBG pCO2 VBG pO2 VBG HCO3 VBG O2 Saturation VBG Base Excess Sodium Potassium Chloride Carbon Dioxide Anion Gap BUN Creatinine Estim Creat Clear Calc Estimated GFR POC Glucose 303 H 301 H 326 H Random Glucose Lactic Acid Calcium Phosphorus Magnesium Ferritin Total Bilirubin AST ALT Alkaline Phosphatase Lactate Dehydrogenase Total Creatine Kinase Troponin I High Sens C-Reactive Protein B-Natriuretic Peptide Total Protein Albumin Lipase Procalcitonin Urine Color Urine Appearance Urine pH Ur Specific [place] Urine Protein Urine Glucose (UA) Urine Ketones Urine Blood Urine Nitrite Ur Leukocyte Esterase Urine RBC Urine WBC Ur Squamous Epith Cells Urine Bacteria Hyaline Casts Granular Casts Urine Yeast Stool Occult Blood Random Vancomycin Lyme Screen IgG & IgM Lyme Progressive Test C. difficile Toxin A&B C. difficile Antigen C. difficile Interpret Coronavirus (PCR) Influenza Type A (PCR) Influenza Type B (PCR) RSV RNA Qual (PCR) Blood Type Antibody Screen Crossmatch 05/04/20 05/04/20 05/04/20 04:37 05:45 05:45 WBC RBC Hgb Hct MCV MCH MCHC RDW Plt Count MPV Immature Gran % (Auto) Neut % (Auto) Lymph % (Auto) [place] % (Auto) Eos % (Auto) Baso % (Auto) Lymph # (Auto) [place] # (Auto) Eos # (Auto) Baso # (Auto) Abs Immat Gran (auto) Absolute Neuts (auto) Absolute Nucleated RBC Nucleated RBC % (auto) Smear Tech's Comments Smear Path Review PT INR APTT PTT (Heparin Protocol) D-Dimer VBG pH VBG pCO2 VBG pO2 VBG HCO3 VBG O2 Saturation VBG Base Excess Sodium 135 Potassium 5.3 H Chloride 99 Carbon Dioxide 22 Anion Gap 19 BUN 98 H* Creatinine 2.75 H Estim Creat Clear Calc 53.0 Estimated GFR 25 POC Glucose 312 H Random Glucose 315 H Lactic Acid Calcium 6.1 L D Phosphorus Magnesium Ferritin 2245 H Total Bilirubin AST ALT Alkaline Phosphatase Lactate Dehydrogenase Total Creatine Kinase Troponin I High Sens C-Reactive Protein B-Natriuretic Peptide Total Protein Albumin Lipase Procalcitonin Urine Color Urine Appearance Urine pH Ur Specific [place] Urine Protein Urine Glucose (UA) Urine Ketones Urine Blood Urine Nitrite Ur Leukocyte Esterase Urine RBC Urine WBC Ur Squamous Epith Cells Urine Bacteria Hyaline Casts Granular Casts Urine Yeast Stool Occult Blood Random Vancomycin Lyme Screen IgG & IgM Lyme Progressive Test C. difficile Toxin A&B C. difficile Antigen C. difficile Interpret Coronavirus (PCR) Influenza Type A (PCR) Influenza Type B (PCR) RSV RNA Qual (PCR) Blood Type Antibody Screen Crossmatch 05/04/20 05/04/20 05/04/20 05:45 05:45 05:45 WBC 5.3 RBC 2.52 L Hgb 7.5 L Hct 24.8 L MCV 98.4 H MCH 29.8 MCHC 30.2 L RDW 17.2 H Plt Count 110 L MPV 9.8 Immature Gran % (Auto) 1.3 H Neut % (Auto) 92.6 H Lymph % (Auto) 2.7 L [place] % (Auto) 3.4 Eos % (Auto) 0.0 Baso % (Auto) 0.0 Lymph # (Auto) 0.1 L [place] # (Auto) 0.2 Eos # (Auto) 0.0 Baso # (Auto) 0.0 Abs Immat Gran (auto) 0.07 H Absolute Neuts (auto) 4.9 Absolute Nucleated RBC 0.170 H Nucleated RBC % (auto) 3.2 H Smear Tech's Comments VERIFIED Smear Path Review PT INR APTT PTT (Heparin Protocol) D-Dimer VBG pH 7.31 L VBG pCO2 47 VBG pO2 68 VBG HCO3 24 VBG O2 Saturation 87.0 VBG Base Excess -1.9 Sodium Potassium Chloride Carbon Dioxide Anion Gap BUN Creatinine Estim Creat Clear Calc Estimated GFR POC Glucose Random Glucose Lactic Acid Calcium Phosphorus Magnesium Ferritin Total Bilirubin AST ALT Alkaline Phosphatase Lactate Dehydrogenase Total Creatine Kinase Troponin I High Sens C-Reactive Protein B-Natriuretic Peptide Total Protein Albumin Lipase Procalcitonin Urine Color Urine Appearance Urine pH Ur Specific [place] Urine Protein Urine Glucose (UA) Urine Ketones Urine Blood Urine Nitrite Ur Leukocyte Esterase Urine RBC Urine WBC Ur Squamous Epith Cells Urine Bacteria Hyaline Casts Granular Casts Urine Yeast Stool Occult Blood Random Vancomycin Lyme Screen IgG & IgM <0.90 Lyme Progressive Test TNP C. difficile Toxin A&B C. difficile Antigen C. difficile Interpret Coronavirus (PCR) Influenza Type A (PCR) Influenza Type B (PCR) RSV RNA Qual (PCR) Blood Type Antibody Screen Crossmatch 05/04/20 05/04/20 05/04/20 05:46 06:36 08:07 WBC RBC Hgb Hct MCV MCH MCHC RDW Plt Count MPV Immature Gran % (Auto) Neut % (Auto) Lymph % (Auto) [place] % (Auto) Eos % (Auto) Baso % (Auto) Lymph # (Auto) [place] # (Auto) Eos # (Auto) Baso # (Auto) Abs Immat Gran (auto) Absolute Neuts (auto) Absolute Nucleated RBC Nucleated RBC % (auto) Smear Tech's Comments Smear Path Review PT INR APTT PTT (Heparin Protocol) D-Dimer VBG pH VBG pCO2 VBG pO2 VBG HCO3 VBG O2 Saturation VBG Base Excess Sodium Potassium Chloride Carbon Dioxide Anion Gap BUN Creatinine Estim Creat Clear Calc Estimated GFR POC Glucose 285 H 285 H 253 H Random Glucose Lactic Acid Calcium Phosphorus Magnesium Ferritin Total Bilirubin AST ALT Alkaline Phosphatase Lactate Dehydrogenase Total Creatine Kinase Troponin I High Sens C-Reactive Protein B-Natriuretic Peptide Total Protein Albumin Lipase Procalcitonin Urine Color Urine Appearance Urine pH Ur Specific [place] Urine Protein Urine Glucose (UA) Urine Ketones Urine Blood Urine Nitrite Ur Leukocyte Esterase Urine RBC Urine WBC Ur Squamous Epith Cells Urine Bacteria Hyaline Casts Granular Casts Urine Yeast Stool Occult Blood Random Vancomycin Lyme Screen IgG & IgM Lyme Progressive Test C. difficile Toxin A&B C. difficile Antigen C. difficile Interpret Coronavirus (PCR) Influenza Type A (PCR) Influenza Type B (PCR) RSV RNA Qual (PCR) Blood Type Antibody Screen Crossmatch 05/04/20 05/04/20 05/04/20 09:10 10:11 11:05 WBC RBC Hgb Hct MCV MCH MCHC RDW Plt Count MPV Immature Gran % (Auto) Neut % (Auto) Lymph % (Auto) [place] % (Auto) Eos % (Auto) Baso % (Auto) Lymph # (Auto) [place] # (Auto) Eos # (Auto) Baso # (Auto) Abs Immat Gran (auto) Absolute Neuts (auto) Absolute Nucleated RBC Nucleated RBC % (auto) Smear Tech's Comments Smear Path Review PT INR APTT PTT (Heparin Protocol) D-Dimer VBG pH VBG pCO2 VBG pO2 VBG HCO3 VBG O2 Saturation VBG Base Excess Sodium Potassium Chloride Carbon Dioxide Anion Gap BUN Creatinine Estim Creat Clear Calc Estimated GFR POC Glucose 239 H 240 H 225 H Random Glucose Lactic Acid Calcium Phosphorus Magnesium Ferritin Total Bilirubin AST ALT Alkaline Phosphatase Lactate Dehydrogenase Total Creatine Kinase Troponin I High Sens C-Reactive Protein B-Natriuretic Peptide Total Protein Albumin Lipase Procalcitonin Urine Color Urine Appearance Urine pH Ur Specific [place] Urine Protein Urine Glucose (UA) Urine Ketones Urine Blood Urine Nitrite Ur Leukocyte Esterase Urine RBC Urine WBC Ur Squamous Epith Cells Urine Bacteria Hyaline Casts Granular Casts Urine Yeast Stool Occult Blood Random Vancomycin Lyme Screen IgG & IgM Lyme Progressive Test C. difficile Toxin A&B C. difficile Antigen C. difficile Interpret Coronavirus (PCR) Influenza Type A (PCR) Influenza Type B (PCR) RSV RNA Qual (PCR) Blood Type Antibody Screen Crossmatch 05/04/20 05/04/20 05/04/20 12:08 13:03 14:20 WBC RBC Hgb Hct MCV MCH MCHC RDW Plt Count MPV Immature Gran % (Auto) Neut % (Auto) Lymph % (Auto) [place] % (Auto) Eos % (Auto) Baso % (Auto) Lymph # (Auto) [place] # (Auto) Eos # (Auto) Baso # (Auto) Abs Immat Gran (auto) Absolute Neuts (auto) Absolute Nucleated RBC Nucleated RBC % (auto) Smear Tech's Comments Smear Path Review PT INR APTT PTT (Heparin Protocol) D-Dimer VBG pH VBG pCO2 VBG pO2 VBG HCO3 VBG O2 Saturation VBG Base Excess Sodium Potassium Chloride Carbon Dioxide Anion Gap BUN Creatinine Estim Creat Clear Calc Estimated GFR POC Glucose 228 H 213 H 230 H Random Glucose Lactic Acid Calcium Phosphorus Magnesium Ferritin Total Bilirubin AST ALT Alkaline Phosphatase Lactate Dehydrogenase Total Creatine Kinase Troponin I High Sens C-Reactive Protein B-Natriuretic Peptide Total Protein Albumin Lipase Procalcitonin Urine Color Urine Appearance Urine pH Ur Specific [place] Urine Protein Urine Glucose (UA) Urine Ketones Urine Blood Urine Nitrite Ur Leukocyte Esterase Urine RBC Urine WBC Ur Squamous Epith Cells Urine Bacteria Hyaline Casts Granular Casts Urine Yeast Stool Occult Blood Random Vancomycin Lyme Screen IgG & IgM Lyme Progressive Test C. difficile Toxin A&B C. difficile Antigen C. difficile Interpret Coronavirus (PCR) Influenza Type A (PCR) Influenza Type B (PCR) RSV RNA Qual (PCR) Blood Type Antibody Screen Crossmatch 05/04/20 05/04/20 05/04/20 16:30 17:12 19:22 WBC RBC Hgb Hct MCV MCH MCHC RDW Plt Count MPV Immature Gran % (Auto) Neut % (Auto) Lymph % (Auto) [place] % (Auto) Eos % (Auto) Baso % (Auto) Lymph # (Auto) [place] # (Auto) Eos # (Auto) Baso # (Auto) Abs Immat Gran (auto) Absolute Neuts (auto) Absolute Nucleated RBC Nucleated RBC % (auto) Smear Tech's Comments Smear Path Review PT INR APTT PTT (Heparin Protocol) D-Dimer VBG pH VBG pCO2 VBG pO2 VBG HCO3 VBG O2 Saturation VBG Base Excess Sodium Potassium Chloride Carbon Dioxide Anion Gap BUN Creatinine Estim Creat Clear Calc Estimated GFR POC Glucose 191 H 193 H 179 H Random Glucose Lactic Acid Calcium Phosphorus Magnesium Ferritin Total Bilirubin AST ALT Alkaline Phosphatase Lactate Dehydrogenase Total Creatine Kinase Troponin I High Sens C-Reactive Protein B-Natriuretic Peptide Total Protein Albumin Lipase Procalcitonin Urine Color Urine Appearance Urine pH Ur Specific [place] Urine Protein Urine Glucose (UA) Urine Ketones Urine Blood Urine Nitrite Ur Leukocyte Esterase Urine RBC Urine WBC Ur Squamous Epith Cells Urine Bacteria Hyaline Casts Granular Casts Urine Yeast Stool Occult Blood Random Vancomycin Lyme Screen IgG & IgM Lyme Progressive Test C. difficile Toxin A&B C. difficile Antigen C. difficile Interpret Coronavirus (PCR) Influenza Type A (PCR) Influenza Type B (PCR) RSV RNA Qual (PCR) Blood Type Antibody Screen Crossmatch 05/04/20 05/04/20 05/05/20 21:19 23:18 01:08 WBC RBC Hgb Hct MCV MCH MCHC RDW Plt Count MPV Immature Gran % (Auto) Neut % (Auto) Lymph % (Auto) [place] % (Auto) Eos % (Auto) Baso % (Auto) Lymph # (Auto) [place] # (Auto) Eos # (Auto) Baso # (Auto) Abs Immat Gran (auto) Absolute Neuts (auto) Absolute Nucleated RBC Nucleated RBC % (auto) Smear Tech's Comments Smear Path Review PT INR APTT PTT (Heparin Protocol) D-Dimer VBG pH VBG pCO2 VBG pO2 VBG HCO3 VBG O2 Saturation VBG Base Excess Sodium Potassium Chloride Carbon Dioxide Anion Gap BUN Creatinine Estim Creat Clear Calc Estimated GFR POC Glucose 169 H 174 H 152 H Random Glucose Lactic Acid Calcium Phosphorus Magnesium Ferritin Total Bilirubin AST ALT Alkaline Phosphatase Lactate Dehydrogenase Total Creatine Kinase Troponin I High Sens C-Reactive Protein B-Natriuretic Peptide Total Protein Albumin Lipase Procalcitonin Urine Color Urine Appearance Urine pH Ur Specific [place] Urine Protein Urine Glucose (UA) Urine Ketones Urine Blood Urine Nitrite Ur Leukocyte Esterase Urine RBC Urine WBC Ur Squamous Epith Cells Urine Bacteria Hyaline Casts Granular Casts Urine Yeast Stool Occult Blood Random Vancomycin Lyme Screen IgG & IgM Lyme Progressive Test C. difficile Toxin A&B C. difficile Antigen C. difficile Interpret Coronavirus (PCR) Influenza Type A (PCR) Influenza Type B (PCR) RSV RNA Qual (PCR) Blood Type Antibody Screen Crossmatch 05/05/20 05/05/20 05/05/20 03:10 04:24 05:07 WBC RBC Hgb Hct MCV MCH MCHC RDW Plt Count MPV Immature Gran % (Auto) Neut % (Auto) Lymph % (Auto) [place] % (Auto) Eos % (Auto) Baso % (Auto) Lymph # (Auto) [place] # (Auto) Eos # (Auto) Baso # (Auto) Abs Immat Gran (auto) Absolute Neuts (auto) Absolute Nucleated RBC Nucleated RBC % (auto) Smear Tech's Comments Smear Path Review PT INR APTT PTT (Heparin Protocol) D-Dimer VBG pH VBG pCO2 VBG pO2 VBG HCO3 VBG O2 Saturation VBG Base Excess Sodium 143 Potassium 4.2 D Chloride 107 Carbon Dioxide 26 Anion Gap 14 BUN 80 H* Creatinine 1.88 H Estim Creat Clear Calc 81.0 Estimated GFR 38 POC Glucose 129 H 131 H Random Glucose 130 H D Lactic Acid Calcium 6.2 L Phosphorus 3.2 Magnesium 2.6 Ferritin 803 H Total Bilirubin AST ALT Alkaline Phosphatase Lactate Dehydrogenase 405 H Total Creatine Kinase Troponin I High Sens C-Reactive Protein 13.45 H B-Natriuretic Peptide Total Protein Albumin Lipase Procalcitonin Urine Color Urine Appearance Urine pH Ur Specific [place] Urine Protein Urine Glucose (UA) Urine Ketones Urine Blood Urine Nitrite Ur Leukocyte Esterase Urine RBC Urine WBC Ur Squamous Epith Cells Urine Bacteria Hyaline Casts Granular Casts Urine Yeast Stool Occult Blood Random Vancomycin Lyme Screen IgG & IgM Lyme Progressive Test C. difficile Toxin A&B C. difficile Antigen C. difficile Interpret Coronavirus (PCR) Influenza Type A (PCR) Influenza Type B (PCR) RSV RNA Qual (PCR) Blood Type Antibody Screen Crossmatch 05/05/20 05/05/20 05/05/20 05:07 05:07 05:07 WBC 3.2 L RBC 2.34 L Hgb 7.0 L* Hct 23.1 L MCV 98.7 H MCH 29.9 MCHC 30.3 L RDW 17.2 H Plt Count 91 L MPV 9.7 Immature Gran % (Auto) 1.2 H Neut % (Auto) 87.0 H Lymph % (Auto) 5.0 L [place] % (Auto) 6.8 Eos % (Auto) 0.0 Baso % (Auto) 0.0 Lymph # (Auto) 0.2 L [place] # (Auto) 0.2 Eos # (Auto) 0.0 Baso # (Auto) 0.0 Abs Immat Gran (auto) 0.04 H Absolute Neuts (auto) 2.8 Absolute Nucleated RBC 0.140 H Nucleated RBC % (auto) 4.3 H Smear Tech's Comments VERIFIED Smear Path Review PT INR APTT PTT (Heparin Protocol) D-Dimer 2088 VBG pH VBG pCO2 VBG pO2 VBG HCO3 VBG O2 Saturation VBG Base Excess Sodium Potassium Chloride Carbon Dioxide Anion Gap BUN Creatinine Estim Creat Clear Calc Estimated GFR POC Glucose Random Glucose Lactic Acid Calcium Phosphorus Magnesium Ferritin Total Bilirubin AST ALT Alkaline Phosphatase Lactate Dehydrogenase Total Creatine Kinase 338 H Troponin I High Sens C-Reactive Protein B-Natriuretic Peptide Total Protein Albumin Lipase Procalcitonin Urine Color Urine Appearance Urine pH Ur Specific [place] Urine Protein Urine Glucose (UA) Urine Ketones Urine Blood Urine Nitrite Ur Leukocyte Esterase Urine RBC Urine WBC Ur Squamous Epith Cells Urine Bacteria Hyaline Casts Granular Casts Urine Yeast Stool Occult Blood Random Vancomycin Lyme Screen IgG & IgM Lyme Progressive Test C. difficile Toxin A&B C. difficile Antigen C. difficile Interpret Coronavirus (PCR) Influenza Type A (PCR) Influenza Type B (PCR) RSV RNA Qual (PCR) Blood Type Antibody Screen Crossmatch 05/05/20 05/05/20 05/05/20 05:07 05:07 06:03 WBC RBC Hgb Hct MCV MCH MCHC RDW Plt Count MPV Immature Gran % (Auto) Neut % (Auto) Lymph % (Auto) [place] % (Auto) Eos % (Auto) Baso % (Auto) Lymph # (Auto) [place] # (Auto) Eos # (Auto) Baso # (Auto) Abs Immat Gran (auto) Absolute Neuts (auto) Absolute Nucleated RBC Nucleated RBC % (auto) Smear Tech's Comments Smear Path Review PT INR APTT PTT (Heparin Protocol) D-Dimer VBG pH 7.40 VBG pCO2 43 VBG pO2 59 VBG HCO3 27 VBG O2 Saturation 89.0 VBG Base Excess 2.9 Sodium Potassium Chloride Carbon Dioxide Anion Gap BUN Creatinine Estim Creat Clear Calc Estimated GFR POC Glucose 124 H Random Glucose Lactic Acid Calcium Phosphorus Magnesium Ferritin Total Bilirubin AST ALT Alkaline Phosphatase Lactate Dehydrogenase Total Creatine Kinase Troponin I High Sens C-Reactive Protein B-Natriuretic Peptide Total Protein Albumin Lipase Procalcitonin 1.03 Urine Color Urine Appearance Urine pH Ur Specific [place] Urine Protein Urine Glucose (UA) Urine Ketones Urine Blood Urine Nitrite Ur Leukocyte Esterase Urine RBC Urine WBC Ur Squamous Epith Cells Urine Bacteria Hyaline Casts Granular Casts Urine Yeast Stool Occult Blood Random Vancomycin Lyme Screen IgG & IgM Lyme Progressive Test C. difficile Toxin A&B C. difficile Antigen C. difficile Interpret Coronavirus (PCR) Influenza Type A (PCR) Influenza Type B (PCR) RSV RNA Qual (PCR) Blood Type Antibody Screen Crossmatch 05/05/20 05/05/20 05/05/20 06:45 08:40 09:50 WBC RBC Hgb Hct MCV MCH MCHC RDW Plt Count MPV Immature Gran % (Auto) Neut % (Auto) Lymph % (Auto) [place] % (Auto) Eos % (Auto) Baso % (Auto) Lymph # (Auto) [place] # (Auto) Eos # (Auto) Baso # (Auto) Abs Immat Gran (auto) Absolute Neuts (auto) Absolute Nucleated RBC Nucleated RBC % (auto) Smear Tech's Comments Smear Path Review PT INR APTT PTT (Heparin Protocol) D-Dimer VBG pH VBG pCO2 VBG pO2 VBG HCO3 VBG O2 Saturation VBG Base Excess Sodium Potassium Chloride Carbon Dioxide Anion Gap BUN Creatinine Estim Creat Clear Calc Estimated GFR POC Glucose 123 H 110 133 H Random Glucose Lactic Acid Calcium Phosphorus Magnesium Ferritin Total Bilirubin AST ALT Alkaline Phosphatase Lactate Dehydrogenase Total Creatine Kinase Troponin I High Sens C-Reactive Protein B-Natriuretic Peptide Total Protein Albumin Lipase Procalcitonin Urine Color Urine Appearance Urine pH Ur Specific [place] Urine Protein Urine Glucose (UA) Urine Ketones Urine Blood Urine Nitrite Ur Leukocyte Esterase Urine RBC Urine WBC Ur Squamous Epith Cells Urine Bacteria Hyaline Casts Granular Casts Urine Yeast Stool Occult Blood Random Vancomycin Lyme Screen IgG & IgM Lyme Progressive Test C. difficile Toxin A&B C. difficile Antigen C. difficile Interpret Coronavirus (PCR) Influenza Type A (PCR) Influenza Type B (PCR) RSV RNA Qual (PCR) Blood Type Antibody Screen Crossmatch 05/05/20 05/05/20 05/05/20 10:36 11:46 14:05 WBC RBC Hgb Hct MCV MCH MCHC RDW Plt Count MPV Immature Gran % (Auto) Neut % (Auto) Lymph % (Auto) [place] % (Auto) Eos % (Auto) Baso % (Auto) Lymph # (Auto) [place] # (Auto) Eos # (Auto) Baso # (Auto) Abs Immat Gran (auto) Absolute Neuts (auto) Absolute Nucleated RBC Nucleated RBC % (auto) Smear Tech's Comments Smear Path Review PT INR APTT PTT (Heparin Protocol) D-Dimer VBG pH VBG pCO2 VBG pO2 VBG HCO3 VBG O2 Saturation VBG Base Excess Sodium Potassium Chloride Carbon Dioxide Anion Gap BUN Creatinine Estim Creat Clear Calc Estimated GFR POC Glucose 189 H 224 H Random Glucose Lactic Acid Calcium Phosphorus Magnesium Ferritin Total Bilirubin AST ALT Alkaline Phosphatase Lactate Dehydrogenase Total Creatine Kinase Troponin I High Sens C-Reactive Protein B-Natriuretic Peptide Total Protein Albumin Lipase Procalcitonin 0.87 Urine Color Urine Appearance Urine pH Ur Specific [place] Urine Protein Urine Glucose (UA) Urine Ketones Urine Blood Urine Nitrite Ur Leukocyte Esterase Urine RBC Urine WBC Ur Squamous Epith Cells Urine Bacteria Hyaline Casts Granular Casts Urine Yeast Stool Occult Blood Random Vancomycin Lyme Screen IgG & IgM Lyme Progressive Test C. difficile Toxin A&B C. difficile Antigen C. difficile Interpret Coronavirus (PCR) Influenza Type A (PCR) Influenza Type B (PCR) RSV RNA Qual (PCR) Blood Type Antibody Screen Crossmatch 05/05/20 05/05/20 05/05/20 14:50 16:19 17:00 WBC RBC Hgb Hct MCV MCH MCHC RDW Plt Count MPV Immature Gran % (Auto) Neut % (Auto) Lymph % (Auto) [place] % (Auto) Eos % (Auto) Baso % (Auto) Lymph # (Auto) [place] # (Auto) Eos # (Auto) Baso # (Auto) Abs Immat Gran (auto) Absolute Neuts (auto) Absolute Nucleated RBC Nucleated RBC % (auto) Smear Tech's Comments Smear Path Review PT INR APTT PTT (Heparin Protocol) D-Dimer VBG pH VBG pCO2 VBG pO2 VBG HCO3 VBG O2 Saturation VBG Base Excess Sodium Potassium Chloride Carbon Dioxide Anion Gap BUN Creatinine Estim Creat Clear Calc Estimated GFR POC Glucose 236 H 227 H 228 H Random Glucose Lactic Acid Calcium Phosphorus Magnesium Ferritin Total Bilirubin AST ALT Alkaline Phosphatase Lactate Dehydrogenase Total Creatine Kinase Troponin I High Sens C-Reactive Protein B-Natriuretic Peptide Total Protein Albumin Lipase Procalcitonin Urine Color Urine Appearance Urine pH Ur Specific [place] Urine Protein Urine Glucose (UA) Urine Ketones Urine Blood Urine Nitrite Ur Leukocyte Esterase Urine RBC Urine WBC Ur Squamous Epith Cells Urine Bacteria Hyaline Casts Granular Casts Urine Yeast Stool Occult Blood Random Vancomycin Lyme Screen IgG & IgM L[place] Progressive Test C. difficile Toxin A&B C. difficile Antigen C. difficile Interpret Coronavirus (PCR) Influenza Type A (PCR) Influenza Type B (PCR) RSV RNA Qual (PCR) Blood Type Antibody Screen Crossmatch 05/05/20 05/05/20 05/05/20 18:00 19:19 19:58 WBC RBC Hgb Hct MCV MCH MCHC RDW Plt Count MPV Immature Gran % (Auto) Neut % (Auto) Lymph % (Auto) [place] % (Auto) Eos % (Auto) Baso % (Auto) Lymph # (Auto) [place] # (Auto) Eos # (Auto) Baso # (Auto) Abs Immat Gran (auto) Absolute Neuts (auto) Absolute Nucleated RBC Nucleated RBC % (auto) Smear Tech's Comments Smear Path Review PT INR APTT PTT (Heparin Protocol) D-Dimer VBG pH VBG pCO2 VBG pO2 VBG HCO3 VBG O2 Saturation VBG Base Excess Sodium Potassium Chloride Carbon Dioxide Anion Gap BUN Creatinine Estim Creat Clear Calc Estimated GFR POC Glucose 223 H 215 H 209 H Random Glucose Lactic Acid Calcium Phosphorus Magnesium Ferritin Total Bilirubin AST ALT Alkaline Phosphatase Lactate Dehydrogenase Total Creatine Kinase Troponin I High Sens C-Reactive Protein B-Natriuretic Peptide Total Protein Albumin Lipase Procalcitonin Urine Color Urine Appearance Urine pH Ur Specific [place] Urine Protein Urine Glucose (UA) Urine Ketones Urine Blood Urine Nitrite Ur Leukocyte Esterase Urine RBC Urine WBC Ur Squamous Epith Cells Urine Bacteria Hyaline Casts Granular Casts Urine Yeast Stool Occult Blood Random Vancomycin Lyme Screen IgG & IgM [place] Progressive Test C. difficile Toxin A&B C. difficile Antigen C. difficile Interpret Coronavirus (PCR) Influenza Type A (PCR) Influenza Type B (PCR) RSV RNA Qual (PCR) Blood Type Antibody Screen Crossmatch 05/05/20 05/05/20 05/06/20 20:53 22:14 00:15 WBC RBC Hgb Hct MCV MCH MCHC RDW Plt Count MPV Immature Gran % (Auto) Neut % (Auto) Lymph % (Auto) [place] % (Auto) Eos % (Auto) Baso % (Auto) Lymph # (Auto) [place] # (Auto) Eos # (Auto) Baso # (Auto) Abs Immat Gran (auto) Absolute Neuts (auto) Absolute Nucleated RBC Nucleated RBC % (auto) Smear Tech's Comments Smear Path Review PT INR APTT PTT (Heparin Protocol) D-Dimer VBG pH VBG pCO2 VBG pO2 VBG HCO3 VBG O2 Saturation VBG Base Excess Sodium Potassium Chloride Carbon Dioxide Anion Gap BUN Creatinine Estim Creat Clear Calc Estimated GFR POC Glucose 200 H 183 H 159 H Random Glucose Lactic Acid Calcium Phosphorus Magnesium Ferritin Total Bilirubin AST ALT Alkaline Phosphatase Lactate Dehydrogenase Total Creatine Kinase Troponin I High Sens C-Reactive Protein B-Natriuretic Peptide Total Protein Albumin Lipase Procalcitonin Urine Color Urine Appearance Urine pH Ur Specific [place] Urine Protein Urine Glucose (UA) Urine Ketones Urine Blood Urine Nitrite Ur Leukocyte Esterase Urine RBC Urine WBC Ur Squamous Epith Cells Urine Bacteria Hyaline Casts Granular Casts Urine Yeast Stool Occult Blood Random Vancomycin Lyme Screen IgG & IgM [place] Progressive Test C. difficile Toxin A&B C. difficile Antigen C. difficile Interpret Coronavirus (PCR) Influenza Type A (PCR) Influenza Type B (PCR) RSV RNA Qual (PCR) Blood Type Antibody Screen Crossmatch 05/06/20 05/06/20 05/06/20 02:08 03:05 05:00 WBC RBC Hgb Hct MCV MCH MCHC RDW Plt Count MPV Immature Gran % (Auto) Neut % (Auto) Lymph % (Auto) [place] % (Auto) Eos % (Auto) Baso % (Auto) Lymph # (Auto) [place] # (Auto) Eos # (Auto) Baso # (Auto) Abs Immat Gran (auto) Absolute Neuts (auto) Absolute Nucleated RBC Nucleated RBC % (auto) Smear Tech's Comments Smear Path Review PT INR APTT PTT (Heparin Protocol) D-Dimer VBG pH VBG pCO2 VBG pO2 VBG HCO3 VBG O2 Saturation VBG Base Excess Sodium Potassium Chloride Carbon Dioxide Anion Gap BUN Creatinine Estim Creat Clear Calc Estimated GFR POC Glucose 123 H 120 H 88 Random Glucose Lactic Acid Calcium Phosphorus Magnesium Ferritin Total Bilirubin AST ALT Alkaline Phosphatase Lactate Dehydrogenase Total Creatine Kinase Troponin I High Sens C-Reactive Protein B-Natriuretic Peptide Total Protein Albumin Lipase Procalcitonin Urine Color Urine Appearance Urine pH Ur Specific [place] Urine Protein Urine Glucose (UA) Urine Ketones Urine Blood Urine Nitrite Ur Leukocyte Esterase Urine RBC Urine WBC Ur Squamous Epith Cells Urine Bacteria Hyaline Casts Granular Casts Urine Yeast Stool Occult Blood Random Vancomycin Lyme Screen IgG & IgM [place] Progressive Test C. difficile Toxin A&B C. difficile Antigen C. difficile Interpret Coronavirus (PCR) Influenza Type A (PCR) Influenza Type B (PCR) RSV RNA Qual (PCR) Blood Type Antibody Screen Crossmatch 05/06/20 05/06/20 05/06/20 05:13 05:13 05:13 WBC 3.4 L RBC 2.68 L Hgb 8.1 L Hct 27.4 L MCV 102.2 H MCH 30.2 MCHC 29.6 L RDW 17.5 H Plt Count 88 L MPV 10.2 Immature Gran % (Auto) 1.8 H Neut % (Auto) 76.9 H Lymph % (Auto) 10.8 L [place] % (Auto) 10.2 Eos % (Auto) 0.3 Baso % (Auto) 0.0 Lymph # (Auto) 0.4 L [place] # (Auto) 0.4 Eos # (Auto) 0.0 Baso # (Auto) 0.0 Abs Immat Gran (auto) 0.06 H Absolute Neuts (auto) 2.6 Absolute Nucleated RBC 0.120 H Nucleated RBC % (auto) 3.5 H Smear Tech's Comments Smear Path Review PT INR APTT PTT (Heparin Protocol) D-Dimer VBG pH VBG pCO2 VBG pO2 VBG HCO3 VBG O2 Saturation VBG Base Excess Sodium 150 H Potassium 4.3 Chloride 114 H Carbon Dioxide 25 Anion Gap 15 BUN 60 H Creatinine 1.57 H Estim Creat Clear Calc 97.0 Estimated GFR 47 POC Glucose Random Glucose 88 Lactic Acid Calcium 6.2 L Phosphorus 3.2 Magnesium 2.6 Ferritin 404 H Total Bilirubin AST ALT Alkaline Phosphatase Lactate Dehydrogenase 380 H Total Creatine Kinase 636 H D Troponin I High Sens C-Reactive Protein 9.13 H B-Natriuretic Peptide Total Protein Albumin Lipase Procalcitonin Urine Color Urine Appearance Urine pH Ur Specific [place] Urine Protein Urine Glucose (UA) Urine Ketones Urine Blood Urine Nitrite Ur Leukocyte Esterase Urine RBC Urine WBC Ur Squamous Epith Cells Urine Bacteria Hyaline Casts Granular Casts Urine Yeast Stool Occult Blood Random Vancomycin Lyme Screen IgG & IgM [place] Progressive Test C. difficile Toxin A&B C. difficile Antigen C. difficile Interpret Coronavirus (PCR) Influenza Type A (PCR) Influenza Type B (PCR) RSV RNA Qual (PCR) Blood Type Antibody Screen Crossmatch 05/06/20 05/06/20 05/06/20 05:13 05:13 05:40 WBC RBC Hgb Hct MCV MCH MCHC RDW Plt Count MPV Immature Gran % (Auto) Neut % (Auto) Lymph % (Auto) [place] % (Auto) Eos % (Auto) Baso % (Auto) Lymph # (Auto) [place] # (Auto) Eos # (Auto) Baso # (Auto) Abs Immat Gran (auto) Absolute Neuts (auto) Absolute Nucleated RBC Nucleated RBC % (auto) Smear Tech's Comments Smear Path Review PT INR APTT PTT (Heparin Protocol) D-Dimer 4462 VBG pH 7.39 VBG pCO2 55 VBG pO2 83 VBG HCO3 33 VBG O2 Saturation 93.0 VBG Base Excess 7.7 Sodium Potassium Chloride Carbon Dioxide Anion Gap BUN Creatinine Estim Creat Clear Calc Estimated GFR POC Glucose Random Glucose Lactic Acid Calcium Phosphorus Magnesium Ferritin Total Bilirubin AST ALT Alkaline Phosphatase Lactate Dehydrogenase Total Creatine Kinase Troponin I High Sens C-Reactive Protein B-Natriuretic Peptide Total Protein Albumin Lipase Procalcitonin 0.60 Urine Color Urine Appearance Urine pH Ur Specific [place] Urine Protein Urine Glucose (UA) Urine Ketones Urine Blood Urine Nitrite Ur Leukocyte Esterase Urine RBC Urine WBC Ur Squamous Epith Cells Urine Bacteria Hyaline Casts Granular Casts Urine Yeast Stool Occult Blood Random Vancomycin Lyme Screen IgG & IgM [place] Progressive Test C. difficile Toxin A&B C. difficile Antigen C. difficile Interpret Coronavirus (PCR) Influenza Type A (PCR) Influenza Type B (PCR) RSV RNA Qual (PCR) Blood Type Antibody Screen Crossmatch 05/06/20 05/06/20 05/06/20 05:58 07:15 07:15 WBC 3.5 L RBC 2.58 L Hgb 7.9 L Hct 26.8 L MCV 103.9 H MCH 30.6 MCHC 29.5 L RDW 17.8 H Plt Count 85 L MPV 9.9 Immature Gran % (Auto) Neut % (Auto) Lymph % (Auto) [place] % (Auto) Eos % (Auto) Baso % (Auto) Lymph # (Auto) [place] # (Auto) Eos # (Auto) Baso # (Auto) Abs Immat Gran (auto) Absolute Neuts (auto) Absolute Nucleated RBC 0.100 H Nucleated RBC % (auto) 2.9 H Smear Tech's Comments Smear Path Review PT 17.1 H INR 1.4 H APTT PTT (Heparin Protocol) 24.4 L D-Dimer VBG pH VBG pCO2 VBG pO2 VBG HCO3 VBG O2 Saturation VBG Base Excess Sodium Potassium Chloride Carbon Dioxide Anion Gap BUN Creatinine Estim Creat Clear Calc Estimated GFR POC Glucose 99 Random Glucose Lactic Acid Calcium Phosphorus Magnesium Ferritin Total Bilirubin AST ALT Alkaline Phosphatase Lactate Dehydrogenase Total Creatine Kinase Troponin I High Sens C-Reactive Protein B-Natriuretic Peptide Total Protein Albumin Lipase Procalcitonin Urine Color Urine Appearance Urine pH Ur Specific [place] Urine Protein Urine Glucose (UA) Urine Ketones Urine Blood Urine Nitrite Ur Leukocyte Esterase Urine RBC Urine WBC Ur Squamous Epith Cells Urine Bacteria Hyaline Casts Granular Casts Urine Yeast Stool Occult Blood Random Vancomycin Lyme Screen IgG & IgM Lyme Progressive Test C. difficile Toxin A&B C. difficile Antigen C. difficile Interpret Coronavirus (PCR) Influenza Type A (PCR) Influenza Type B (PCR) RSV RNA Qual (PCR) Blood Type Antibody Screen Crossmatch 05/06/20 05/06/20 05/06/20 07:52 09:57 11:50 WBC RBC Hgb Hct MCV MCH MCHC RDW Plt Count MPV Immature Gran % (Auto) Neut % (Auto) Lymph % (Auto) [place] % (Auto) Eos % (Auto) Baso % (Auto) Lymph # (Auto) [place] # (Auto) Eos # (Auto) Baso # (Auto) Abs Immat Gran (auto) Absolute Neuts (auto) Absolute Nucleated RBC Nucleated RBC % (auto) Smear Tech's Comments Smear Path Review PT INR APTT PTT (Heparin Protocol) D-Dimer VBG pH VBG pCO2 VBG pO2 VBG HCO3 VBG O2 Saturation VBG Base Excess Sodium Potassium Chloride Carbon Dioxide Anion Gap BUN Creatinine Estim Creat Clear Calc Estimated GFR POC Glucose 130 H 188 H 217 H Random Glucose Lactic Acid Calcium Phosphorus Magnesium Ferritin Total Bilirubin AST ALT Alkaline Phosphatase Lactate Dehydrogenase Total Creatine Kinase Troponin I High Sens C-Reactive Protein B-Natriuretic Peptide Total Protein Albumin Lipase Procalcitonin Urine Color Urine Appearance Urine pH Ur Specific [place] Urine Protein Urine Glucose (UA) Urine Ketones Urine Blood Urine Nitrite Ur Leukocyte Esterase Urine RBC Urine WBC Ur Squamous Epith Cells Urine Bacteria Hyaline Casts Granular Casts Urine Yeast Stool Occult Blood Random Vancomycin Lyme Screen IgG & IgM Lyme Progressive Test C. difficile Toxin A&B C. difficile Antigen C. difficile Interpret Coronavirus (PCR) Influenza Type A (PCR) Influenza Type B (PCR) RSV RNA Qual (PCR) Blood Type Antibody Screen Crossmatch 05/06/20 05/06/2005/06/21 12:03 12:51 13:52 WBC RBC Hgb Hct MCV MCH MCHC RDW Plt Count MPV Immature Gran % (Auto) Neut % (Auto) Lymph % (Auto) [place] % (Auto) Eos % (Auto) Baso % (Auto) Lymph # (Auto) [place] # (Auto) Eos # (Auto) Baso # (Auto) Abs Immat Gran (auto) Absolute Neuts (auto) Absolute Nucleated RBC Nucleated RBC % (auto) Smear Tech's Comments Smear Path Review PT INR APTT PTT (Heparin Protocol) D-Dimer VBG pH VBG pCO2 VBG pO2 VBG HCO3 VBG O2 Saturation VBG Base Excess Sodium 149 H Potassium 4.4 Chloride 116 H Carbon Dioxide 24 Anion Gap 13 BUN 53 H Creatinine 1.50 H Estim Creat Clear Calc 100.8 Estimated GFR 50 POC Glucose 194 H 207 H Random Glucose 200 H D Lactic Acid Calcium 5.6 L* D Phosphorus Magnesium Ferritin Total Bilirubin AST ALT Alkaline Phosphatase Lactate Dehydrogenase Total Creatine Kinase Troponin I High Sens C-Reactive Protein B-Natriuretic Peptide Total Protein Albumin Lipase 40 Procalcitonin Urine Color Urine Appearance Urine pH Ur Specific [place] Urine Protein Urine Glucose (UA) Urine Ketones Urine Blood Urine Nitrite Ur Leukocyte Esterase Urine RBC Urine WBC Ur Squamous Epith Cells Urine Bacteria Hyaline Casts Granular Casts Urine Yeast Stool Occult Blood Random Vancomycin Lyme Screen IgG & IgM Lyme Progressive Test C. difficile Toxin A&B C. difficile Antigen C. difficile Interpret Coronavirus (PCR) Influenza Type A (PCR) Influenza Type B (PCR) RSV RNA Qual (PCR) Blood Type Antibody Screen Crossmatch 05/06/20 05/06/20 05/06/20 14:04 14:54 16:19 WBC RBC Hgb Hct MCV MCH MCHC RDW Plt Count MPV Immature Gran % (Auto) Neut % (Auto) Lymph % (Auto) [place] % (Auto) Eos % (Auto) Baso % (Auto) Lymph # (Auto) [place] # (Auto) Eos # (Auto) Baso # (Auto) Abs Immat Gran (auto) Absolute Neuts (auto) Absolute Nucleated RBC Nucleated RBC % (auto) Smear Tech's Comments Smear Path Review PT INR APTT PTT (Heparin Protocol) 31.7 L D D-Dimer VBG pH VBG pCO2 VBG pO2 VBG HCO3 VBG O2 Saturation VBG Base Excess Sodium Potassium Chloride Carbon Dioxide Anion Gap BUN Creatinine Estim Creat Clear Calc Estimated GFR POC Glucose 202 H 197 H Random Glucose Lactic Acid Calcium Phosphorus Magnesium Ferritin Total Bilirubin AST ALT Alkaline Phosphatase Lactate Dehydrogenase Total Creatine Kinase Troponin I High Sens C-Reactive Protein B-Natriuretic Peptide Total Protein Albumin Lipase Procalcitonin Urine Color Urine Appearance Urine pH Ur Specific [place] Urine Protein Urine Glucose (UA) Urine Ketones Urine Blood Urine Nitrite Ur Leukocyte Esterase Urine RBC Urine WBC Ur Squamous Epith Cells Urine Bacteria Hyaline Casts Granular Casts Urine Yeast Stool Occult Blood Random Vancomycin Lyme Screen IgG & IgM Lyme Progressive Test C. difficile Toxin A&B C. difficile Antigen C. difficile Interpret Coronavirus (PCR) Influenza Type A (PCR) Influenza Type B (PCR) RSV RNA Qual (PCR) Blood Type Antibody Screen Crossmatch 05/06/20 05/06/20 05/06/20 17:12 18:54 19:30 WBC RBC Hgb Hct MCV MCH MCHC RDW Plt Count MPV Immature Gran % (Auto) Neut % (Auto) Lymph % (Auto) [place] % (Auto) Eos % (Auto) Baso % (Auto) Lymph # (Auto) [place] # (Auto) Eos # (Auto) Baso # (Auto) Abs Immat Gran (auto) Absolute Neuts (auto) Absolute Nucleated RBC Nucleated RBC % (auto) Smear Tech's Comments Smear Path Review PT INR APTT PTT (Heparin Protocol) D-Dimer VBG pH VBG pCO2 VBG pO2 VBG HCO3 VBG O2 Saturation VBG Base Excess Sodium 150 H Potassium 4.6 Chloride 116 H Carbon Dioxide 27 Anion Gap 12 BUN 53 H Creatinine 1.56 H Estim Creat Clear Calc 96.9 Estimated GFR 47 POC Glucose 190 H 179 H Random Glucose 175 H Lactic Acid Calcium 6.3 L D Phosphorus 2.9 Magnesium 2.7 H Ferritin Total Bilirubin AST ALT Alkaline Phosphatase Lactate Dehydrogenase Total Creatine Kinase Troponin I High Sens C-Reactive Protein B-Natriuretic Peptide Total Protein Albumin Lipase Procalcitonin Urine Color Urine Appearance Urine pH Ur Specific [place] Urine Protein Urine Glucose (UA) Urine Ketones Urine Blood Urine Nitrite Ur Leukocyte Esterase Urine RBC Urine WBC Ur Squamous Epith Cells Urine Bacteria Hyaline Casts Granular Casts Urine Yeast Stool Occult Blood Random Vancomycin Lyme Screen IgG & IgM Lyme Progressive Test C. difficile Toxin A&B C. difficile Antigen C. difficile Interpret Coronavirus (PCR) Influenza Type A (PCR) Influenza Type B (PCR) RSV RNA Qual (PCR) Blood Type Antibody Screen Crossmatch 05/06/20 05/06/20 05/06/20 20:47 21:07 22:30 WBC RBC Hgb Hct MCV MCH MCHC RDW Plt Count MPV Immature Gran % (Auto) Neut % (Auto) Lymph % (Auto) [place] % (Auto) Eos % (Auto) Baso % (Auto) Lymph # (Auto) [place] # (Auto) Eos # (Auto) Baso # (Auto) Abs Immat Gran (auto) Absolute Neuts (auto) Absolute Nucleated RBC Nucleated RBC % (auto) Smear Tech's Comments Smear Path Review PT INR APTT PTT (Heparin Protocol) 50.9 L D D-Dimer VBG pH VBG pCO2 VBG pO2 VBG HCO3 VBG O2 Saturation VBG Base Excess Sodium Potassium Chloride Carbon Dioxide Anion Gap BUN Creatinine Estim Creat Clear Calc Estimated GFR POC Glucose 142 H 144 H Random Glucose Lactic Acid Calcium Phosphorus Magnesium Ferritin Total Bilirubin AST ALT Alkaline Phosphatase Lactate Dehydrogenase Total Creatine Kinase Troponin I High Sens C-Reactive Protein B-Natriuretic Peptide Total Protein Albumin Lipase Procalcitonin Urine Color Urine Appearance Urine pH Ur Specific [place] Urine Protein Urine Glucose (UA) Urine Ketones Urine Blood Urine Nitrite Ur Leukocyte Esterase Urine RBC Urine WBC Ur Squamous Epith Cells Urine Bacteria Hyaline Casts Granular Casts Urine Yeast Stool Occult Blood Random Vancomycin Lyme Screen IgG & IgM Lyme Progressive Test C. difficile Toxin A&B C. difficile Antigen C. difficile Interpret Coronavirus (PCR) Influenza Type A (PCR) Influenza Type B (PCR) RSV RNA Qual (PCR) Blood Type Antibody Screen Crossmatch 05/07/20 05/07/20 05/07/20 01:10 03:00 04:05 WBC RBC Hgb Hct MCV MCH MCHC RDW Plt Count MPV Immature Gran % (Auto) Neut % (Auto) Lymph % (Auto) [place] % (Auto) Eos % (Auto) Baso % (Auto) Lymph # (Auto) [place] # (Auto) Eos # (Auto) Baso # (Auto) Abs Immat Gran (auto) Absolute Neuts (auto) Absolute Nucleated RBC Nucleated RBC % (auto) Smear Tech's Comments Smear Path Review PT INR APTT PTT (Heparin Protocol) D-Dimer VBG pH VBG pCO2 VBG pO2 VBG HCO3 VBG O2 Saturation VBG Base Excess Sodium 152 H Potassium 4.5 Chloride 116 H Carbon Dioxide 26 Anion Gap 15 BUN 51 H Creatinine 1.49 H Estim Creat Clear Calc 101.5 Estimated GFR 50 POC Glucose 122 H 123 H Random Glucose 128 H Lactic Acid Calcium 6.4 L Phosphorus 3.9 Magnesium 2.6 Ferritin 302 H Total Bilirubin AST ALT Alkaline Phosphatase Lactate Dehydrogenase 438 H Total Creatine Kinase Troponin I High Sens C-Reactive Protein 9.35 H B-Natriuretic Peptide Total Protein Albumin Lipase Procalcitonin Urine Color Urine Appearance Urine pH Ur Specific [place] Urine Protein Urine Glucose (UA) Urine Ketones Urine Blood Urine Nitrite Ur Leukocyte Esterase Urine RBC Urine WBC Ur Squamous Epith Cells Urine Bacteria Hyaline Casts Granular Casts Urine Yeast Stool Occult Blood Random Vancomycin Lyme Screen IgG & IgM Lyme Progressive Test C. difficile Toxin A&B C. difficile Antigen C. difficile Interpret Coronavirus (PCR) Influenza Type A (PCR) Influenza Type B (PCR) RSV RNA Qual (PCR) Blood Type Antibody Screen Crossmatch 05/07/20 05/07/20 05/07/20 04:05 04:05 04:05 WBC 3.5 L RBC 2.63 L Hgb 8.1 L Hct 28.5 L MCV 108.4 H MCH 30.8 MCHC 28.4 L RDW 17.7 H Plt Count 75 L MPV 10.4 Immature Gran % (Auto) 1.7 H Neut % (Auto) 73.4 H Lymph % (Auto) 13.9 L [place] % (Auto) 10.1 Eos % (Auto) 0.9 Baso % (Auto) 0.0 Lymph # (Auto) 0.5 L [place] # (Auto) 0.4 Eos # (Auto) 0.0 Baso # (Auto) 0.0 Abs Immat Gran (auto) 0.06 H Absolute Neuts (auto) 2.5 Absolute Nucleated RBC 0.080 H Nucleated RBC % (auto) 2.3 H Smear Tech's Comments VERIFIED Smear Path Review PT 17.1 H Cancelled INR 1.4 H Cancelled APTT PTT (Heparin Protocol) 71.6 D D-Dimer 3184 Cancelled VBG pH VBG pCO2 VBG pO2 VBG HCO3 VBG O2 Saturation VBG Base Excess Sodium Potassium Chloride Carbon Dioxide Anion Gap BUN Creatinine Estim Creat Clear Calc Estimated GFR POC Glucose Random Glucose Lactic Acid Calcium Phosphorus Magnesium Ferritin Total Bilirubin AST ALT Alkaline Phosphatase Lactate Dehydrogenase Total Creatine Kinase Troponin I High Sens C-Reactive Protein B-Natriuretic Peptide Total Protein Albumin Lipase Procalcitonin Urine Color Urine Appearance Urine pH Ur Specific [place] Urine Protein Urine Glucose (UA) Urine Ketones Urine Blood Urine Nitrite Ur Leukocyte Esterase Urine RBC Urine WBC Ur Squamous Epith Cells Urine Bacteria Hyaline Casts Granular Casts Urine Yeast Stool Occult Blood Random Vancomycin Lyme Screen IgG & IgM Lyme Progressive Test C. difficile Toxin A&B C. difficile Antigen C. difficile Interpret Coronavirus (PCR) Influenza Type A (PCR) Influenza Type B (PCR) RSV RNA Qual (PCR) Blood Type Antibody Screen Crossmatch 05/07/20 05/07/20 05/07/20 04:05 04:05 04:05 WBC RBC Hgb Hct MCV MCH MCHC RDW Plt Count MPV Immature Gran % (Auto) Neut % (Auto) Lymph % (Auto) [place] % (Auto) Eos % (Auto) Baso % (Auto) Lymph # (Auto) [place] # (Auto) Eos # (Auto) Baso # (Auto) Abs Immat Gran (auto) Absolute Neuts (auto) Absolute Nucleated RBC Nucleated RBC % (auto) Smear Tech's Comments Smear Path Review PT INR APTT PTT (Heparin Protocol) D-Dimer VBG pH 7.31 L VBG pCO2 71 VBG pO2 81 VBG HCO3 36 VBG O2 Saturation 92.0 VBG Base Excess 9.1 Sodium Potassium Chloride Carbon Dioxide Anion Gap BUN Creatinine Estim Creat Clear Calc Estimated GFR POC Glucose Random Glucose Lactic Acid Calcium Phosphorus Magnesium Ferritin Total Bilirubin AST ALT Alkaline Phosphatase Lactate Dehydrogenase Total Creatine Kinase 1097 H D Troponin I High Sens C-Reactive Protein B-Natriuretic Peptide Total Protein Albumin Lipase Procalcitonin 0.39 Urine Color Urine Appearance Urine pH Ur Specific [place] Urine Protein Urine Glucose (UA) Urine Ketones Urine Blood Urine Nitrite Ur Leukocyte Esterase Urine RBC Urine WBC Ur Squamous Epith Cells Urine Bacteria Hyaline Casts Granular Casts Urine Yeast Stool Occult Blood Random Vancomycin Lyme Screen IgG & IgM Lyme Progressive Test C. difficile Toxin A&B C. difficile Antigen C. difficile Interpret Coronavirus (PCR) Influenza Type A (PCR) Influenza Type B (PCR) RSV RNA Qual (PCR) Blood Type Antibody Screen Crossmatch 05/07/20 05/07/20 05/07/20 05:10 06:54 08:50 WBC RBC Hgb Hct MCV MCH MCHC RDW Plt Count MPV Immature Gran % (Auto) Neut % (Auto) Lymph % (Auto) [place] % (Auto) Eos % (Auto) Baso % (Auto) Lymph # (Auto) [place] # (Auto) Eos # (Auto) Baso # (Auto) Abs Immat Gran (auto) Absolute Neuts (auto) Absolute Nucleated RBC Nucleated RBC % (auto) Smear Tech's Comments Smear Path Review PT INR APTT PTT (Heparin Protocol) D-Dimer VBG pH VBG pCO2 VBG pO2 VBG HCO3 VBG O2 Saturation VBG Base Excess Sodium Potassium Chloride Carbon Dioxide Anion Gap BUN Creatinine Estim Creat Clear Calc Estimated GFR POC Glucose 129 H 127 H 154 H Random Glucose Lactic Acid Calcium Phosphorus Magnesium Ferritin Total Bilirubin AST ALT Alkaline Phosphatase Lactate Dehydrogenase Total Creatine Kinase Troponin I High Sens C-Reactive Protein B-Natriuretic Peptide Total Protein Albumin Lipase Procalcitonin Urine Color Urine Appearance Urine pH Ur Specific [place] Urine Protein Urine Glucose (UA) Urine Ketones Urine Blood Urine Nitrite Ur Leukocyte Esterase Urine RBC Urine WBC Ur Squamous Epith Cells Urine Bacteria Hyaline Casts Granular Casts Urine Yeast Stool Occult Blood Random Vancomycin Lyme Screen IgG & IgM Lyme Progressive Test C. difficile Toxin A&B C. difficile Antigen C. difficile Interpret Coronavirus (PCR) Influenza Type A (PCR) Influenza Type B (PCR) RSV RNA Qual (PCR) Blood Type Antibody Screen Crossmatch 05/07/20 05/07/20 05/08/20 12:01 12:45 01:15 WBC RBC Hgb Hct MCV MCH MCHC RDW Plt Count MPV Immature Gran % (Auto) Neut % (Auto) Lymph % (Auto) [place] % (Auto) Eos % (Auto) Baso % (Auto) Lymph # (Auto) [place] # (Auto) Eos # (Auto) Baso # (Auto) Abs Immat Gran (auto) Absolute Neuts (auto) Absolute Nucleated RBC Nucleated RBC % (auto) Smear Tech's Comments Smear Path Review PT INR APTT PTT (Heparin Protocol) D-Dimer VBG pH VBG pCO2 VBG pO2 VBG HCO3 VBG O2 Saturation VBG Base Excess Sodium Potassium Chloride Carbon Dioxide Anion Gap BUN Creatinine Estim Creat Clear Calc Estimated GFR POC Glucose 227 H 200 H Random Glucose Lactic Acid Calcium Phosphorus Magnesium Ferritin Total Bilirubin AST ALT Alkaline Phosphatase Lactate Dehydrogenase Total Creatine Kinase Troponin I High Sens C-Reactive Protein B-Natriuretic Peptide Total Protein Albumin Lipase Procalcitonin Urine Color Urine Appearance Urine pH Ur Specific [place] Urine Protein Urine Glucose (UA) Urine Ketones Urine Blood Urine Nitrite Ur Leukocyte Esterase Urine RBC Urine WBC Ur Squamous Epith Cells Urine Bacteria Hyaline Casts Granular Casts Urine Yeast Stool Occult Blood Random Vancomycin Lyme Screen IgG & IgM Lyme Progressive Test C. difficile Toxin A&B TNP C. difficile Antigen TNP C. difficile Interpret TNP Coronavirus (PCR) Influenza Type A (PCR) Influenza Type B (PCR) RSV RNA Qual (PCR) Blood Type Antibody Screen Crossmatch 05/08/20 05/08/20 05/08/20 05:30 05:30 05:30 WBC 3.0 L RBC 2.36 L Hgb 7.1 L Hct 25.2 L MCV 106.8 H MCH 30.1 MCHC 28.2 L RDW 17.2 H Plt Count 70 L MPV 10.8 Immature Gran % (Auto) 1.0 H Neut % (Auto) 76.4 H Lymph % (Auto) 13.2 L [place] % (Auto) 6.4 Eos % (Auto) 3.0 Baso % (Auto) 0.0 Lymph # (Auto) 0.4 L [place] # (Auto) 0.2 Eos # (Auto) 0.1 Baso # (Auto) 0.0 Abs Immat Gran (auto) 0.03 Absolute Neuts (auto) 2.3 Absolute Nucleated RBC 0.040 H Nucleated RBC % (auto) 1.4 H Smear Tech's Comments VERIFIED Smear Path Review PT INR APTT PTT (Heparin Protocol) D-Dimer 4028 VBG pH VBG pCO2 VBG pO2 VBG HCO3 VBG O2 Saturation VBG Base Excess Sodium 152 H Potassium 4.3 Chloride 116 H Carbon Dioxide 25 Anion Gap 15 BUN 48 H Creatinine 1.46 H Estim Creat Clear Calc 104.6 Estimated GFR 51 POC Glucose Random Glucose 256 H D Lactic Acid Calcium 7.1 L D Phosphorus 4.1 Magnesium 2.6 Ferritin Total Bilirubin 0.9 AST 39 H D ALT 51 H Alkaline Phosphatase 41 D Lactate Dehydrogenase 348 H Total Creatine Kinase 1574 H D Troponin I High Sens C-Reactive Protein 8.97 H B-Natriuretic Peptide Total Protein 5.8 L Albumin 3.1 L Lipase Procalcitonin Urine Color Urine Appearance Urine pH Ur Specific [place] Urine Protein Urine Glucose (UA) Urine Ketones Urine Blood Urine Nitrite Ur Leukocyte Esterase Urine RBC Urine WBC Ur Squamous Epith Cells Urine Bacteria Hyaline Casts Granular Casts Urine Yeast Stool Occult Blood Random Vancomycin Lyme Screen IgG & IgM Lyme Progressive Test C. difficile Toxin A&B C. difficile Antigen C. difficile Interpret Coronavirus (PCR) Influenza Type A (PCR) Influenza Type B (PCR) RSV RNA Qual (PCR) Blood Type Antibody Screen Crossmatch 05/08/20 05/08/20 05/08/20 05:30 05:30 06:08 WBC RBC Hgb Hct MCV MCH MCHC RDW Plt Count MPV Immature Gran % (Auto) Neut % (Auto) Lymph % (Auto) [place] % (Auto) Eos % (Auto) Baso % (Auto) Lymph # (Auto) [place] # (Auto) Eos # (Auto) Baso # (Auto) Abs Immat Gran (auto) Absolute Neuts (auto) Absolute Nucleated RBC Nucleated RBC % (auto) Smear Tech's Comments Smear Path Review PT INR APTT PTT (Heparin Protocol) D-Dimer VBG pH 7.35 VBG pCO2 47 VBG pO2 67 VBG HCO3 27 VBG O2 Saturation 89.0 VBG Base Excess 1.5 Sodium Potassium Chloride Carbon Dioxide Anion Gap BUN Creatinine Estim Creat Clear Calc Estimated GFR POC Glucose 225 H Random Glucose Lactic Acid Calcium Phosphorus Magnesium Ferritin Total Bilirubin AST ALT Alkaline Phosphatase Lactate Dehydrogenase Total Creatine Kinase Troponin I High Sens C-Reactive Protein B-Natriuretic Peptide Total Protein Albumin Lipase Procalcitonin 0.38 Urine Color Urine Appearance Urine pH Ur Specific [place] Urine Protein Urine Glucose (UA) Urine Ketones Urine Blood Urine Nitrite Ur Leukocyte Esterase Urine RBC Urine WBC Ur Squamous Epith Cells Urine Bacteria Hyaline Casts Granular Casts Urine Yeast Stool Occult Blood Random Vancomycin Lyme Screen IgG & IgM Lyme Progressive Test C. difficile Toxin A&B C. difficile Antigen C. difficile Interpret Coronavirus (PCR) Influenza Type A (PCR) Influenza Type B (PCR) RSV RNA Qual (PCR) Blood Type Antibody Screen Crossmatch 05/08/20 05/08/20 05/08/20 12:02 18:13 23:35 WBC RBC Hgb Hct MCV MCH MCHC RDW Plt Count MPV Immature Gran % (Auto) Neut % (Auto) Lymph % (Auto) [place] % (Auto) Eos % (Auto) Baso % (Auto) Lymph # (Auto) [place] # (Auto) Eos # (Auto) Baso # (Auto) Abs Immat Gran (auto) Absolute Neuts (auto) Absolute Nucleated RBC Nucleated RBC % (auto) Smear Tech's Comments Smear Path Review PT INR APTT PTT (Heparin Protocol) D-Dimer VBG pH VBG pCO2 VBG pO2 VBG HCO3 VBG O2 Saturation VBG Base Excess Sodium Potassium Chloride Carbon Dioxide Anion Gap BUN Creatinine Estim Creat Clear Calc Estimated GFR POC Glucose 336 H 349 H 274 H Random Glucose Lactic Acid Calcium Phosphorus Magnesium Ferritin Total Bilirubin AST ALT Alkaline Phosphatase Lactate Dehydrogenase Total Creatine Kinase Troponin I High Sens C-Reactive Protein B-Natriuretic Peptide Total Protein Albumin Lipase Procalcitonin Urine Color Urine Appearance Urine pH Ur Specific [place] Urine Protein Urine Glucose (UA) Urine Ketones Urine Blood Urine Nitrite Ur Leukocyte Esterase Urine RBC Urine WBC Ur Squamous Epith Cells Urine Bacteria Hyaline Casts Granular Casts Urine Yeast Stool Occult Blood Random Vancomycin Lyme Screen IgG & IgM Lyme Progressive Test C. difficile Toxin A&B C. difficile Antigen C. difficile Interpret Coronavirus (PCR) Influenza Type A (PCR) Influenza Type B (PCR) RSV RNA Qual (PCR) Blood Type Antibody Screen Crossmatch 05/09/20 05/09/20 05/09/20 05:47 05:47 05:47 WBC 3.2 L RBC 2.53 L Hgb 7.8 L Hct 26.9 L MCV 106.3 H MCH 30.8 MCHC 29.0 L RDW 17.1 H Plt Count 78 L MPV 11.7 Immature Gran % (Auto) 0.9 H Neut % (Auto) 78.1 H Lymph % (Auto) 11.1 L [place] % (Auto) 5.3 Eos % (Auto) 4.3 H Baso % (Auto) 0.3 Lymph # (Auto) 0.4 L [place] # (Auto) 0.2 Eos # (Auto) 0.1 Baso # (Auto) 0.0 Abs Immat Gran (auto) 0.03 Absolute Neuts (auto) 2.5 Absolute Nucleated RBC 0.030 H Nucleated RBC % (auto) 0.9 H Smear Tech's Comments VERIFIED Smear Path Review PT INR APTT PTT (Heparin Protocol) D-Dimer VBG pH 7.38 VBG pCO2 60 VBG pO2 57 VBG HCO3 36 VBG O2 Saturation 85.0 VBG Base Excess 10.3 Sodium 151 H Potassium 4.1 Chloride 116 H Carbon Dioxide 27 Anion Gap 12 BUN 48 H Creatinine 1.50 H Estim Creat Clear Calc 100.8 Estimated GFR 50 POC Glucose Random Glucose 255 H Lactic Acid Calcium 7.7 L D Phosphorus 3.1 Magnesium 2.8 H Ferritin Total Bilirubin AST ALT Alkaline Phosphatase Lactate Dehydrogenase Total Creatine Kinase Troponin I High Sens C-Reactive Protein B-Natriuretic Peptide Total Protein Albumin 3.3 L Lipase Procalcitonin Urine Color Urine Appearance Urine pH Ur Specific [place] Urine Protein Urine Glucose (UA) Urine Ketones Urine Blood Urine Nitrite Ur Leukocyte Esterase Urine RBC Urine WBC Ur Squamous Epith Cells Urine Bacteria Hyaline Casts Granular Casts Urine Yeast Stool Occult Blood Random Vancomycin Lyme Screen IgG & IgM Lyme Progressive Test C. difficile Toxin A&B C. difficile Antigen C. difficile Interpret Coronavirus (PCR) Influenza Type A (PCR) Influenza Type B (PCR) RSV RNA Qual (PCR) Blood Type Antibody Screen Crossmatch 05/09/20 05/09/20 05/09/20 06:41 12:05 17:10 WBC RBC Hgb Hct MCV MCH MCHC RDW Plt Count MPV Immature Gran % (Auto) Neut % (Auto) Lymph % (Auto) [place] % (Auto) Eos % (Auto) Baso % (Auto) Lymph # (Auto) [place] # (Auto) Eos # (Auto) Baso # (Auto) Abs Immat Gran (auto) Absolute Neuts (auto) Absolute Nucleated RBC Nucleated RBC % (auto) Smear Tech's Comments Smear Path Review PT INR APTT PTT (Heparin Protocol) D-Dimer VBG pH VBG pCO2 VBG pO2 VBG HCO3 VBG O2 Saturation VBG Base Excess Sodium Potassium Chloride Carbon Dioxide Anion Gap BUN Creatinine Estim Creat Clear Calc Estimated GFR POC Glucose 239 H 352 H* 344 H Random Glucose Lactic Acid Calcium Phosphorus Magnesium Ferritin Total Bilirubin AST ALT Alkaline Phosphatase Lactate Dehydrogenase Total Creatine Kinase Troponin I High Sens C-Reactive Protein B-Natriuretic Peptide Total Protein Albumin Lipase Procalcitonin Urine Color Urine Appearance Urine pH Ur Specific [place] Urine Protein Urine Glucose (UA) Urine Ketones Urine Blood Urine Nitrite Ur Leukocyte Esterase Urine RBC Urine WBC Ur Squamous Epith Cells Urine Bacteria Hyaline Casts Granular Casts Urine Yeast Stool Occult Blood Random Vancomycin Lyme Screen IgG & IgM Lyme Progressive Test C. difficile Toxin A&B C. difficile Antigen C. difficile Interpret Coronavirus (PCR) Influenza Type A (PCR) Influenza Type B (PCR) RSV RNA Qual (PCR) Blood Type Antibody Screen Crossmatch 05/09/20 05/09/20 05/10/20 18:12 23:08 05:34 WBC 3.8 L RBC 2.67 L Hgb 8.0 L Hct 28.3 L MCV 106.0 H MCH 30.0 MCHC 28.3 L RDW 17.2 H Plt Count 72 L MPV 12.0 Immature Gran % (Auto) 0.5 H Neut % (Auto) 78.9 H Lymph % (Auto) 11.4 L [place] % (Auto) 5.8 Eos % (Auto) 3.4 Baso % (Auto) 0.0 Lymph # (Auto) 0.4 L [place] # (Auto) 0.2 Eos # (Auto) 0.1 Baso # (Auto) 0.0 Abs Immat Gran (auto) 0.02 Absolute Neuts (auto) 3.0 Absolute Nucleated RBC 0.000 Nucleated RBC % (auto) 0.0 Smear Tech's Comments VERIFIED Smear Path Review PT INR APTT PTT (Heparin Protocol) D-Dimer VBG pH VBG pCO2 VBG pO2 VBG HCO3 VBG O2 Saturation VBG Base Excess Sodium Potassium Chloride Carbon Dioxide Anion Gap BUN Creatinine Estim Creat Clear Calc Estimated GFR POC Glucose 343 H 266 H Random Glucose Lactic Acid Calcium Phosphorus Magnesium Ferritin Total Bilirubin AST ALT Alkaline Phosphatase Lactate Dehydrogenase Total Creatine Kinase Troponin I High Sens C-Reactive Protein B-Natriuretic Peptide Total Protein Albumin Lipase Procalcitonin Urine Color Urine Appearance Urine pH Ur Specific [place] Urine Protein Urine Glucose (UA) Urine Ketones Urine Blood Urine Nitrite Ur Leukocyte Esterase Urine RBC Urine WBC Ur Squamous Epith Cells Urine Bacteria Hyaline Casts Granular Casts Urine Yeast Stool Occult Blood Random Vancomycin Lyme Screen IgG & IgM Lyme Progressive Test C. difficile Toxin A&B C. difficile Antigen C. difficile Interpret Coronavirus (PCR) Influenza Type A (PCR) Influenza Type B (PCR) RSV RNA Qual (PCR) Blood Type Antibody Screen Crossmatch 05/10/20 05/10/20 05/10/20 05:34 05:34 06:20 WBC RBC Hgb Hct MCV MCH MCHC RDW Plt Count MPV Immature Gran % (Auto) Neut % (Auto) Lymph % (Auto) [place] % (Auto) Eos % (Auto) Baso % (Auto) Lymph # (Auto) [place] # (Auto) Eos # (Auto) Baso # (Auto) Abs Immat Gran (auto) Absolute Neuts (auto) Absolute Nucleated RBC Nucleated RBC % (auto) Smear Tech's Comments Smear Path Review PT INR APTT PTT (Heparin Protocol) D-Dimer VBG pH 7.36 VBG pCO2 51 VBG pO2 75 VBG HCO3 29 VBG O2 Saturation 93.0 VBG Base Excess 3.4 Sodium 152 H Potassium 3.9 Chloride 115 H Carbon Dioxide 23 Anion Gap 18 BUN 57 H Creatinine 1.75 H Estim Creat Clear Calc 86.4 Estimated GFR 41 POC Glucose 255 H Random Glucose 270 H Lactic Acid Calcium 7.8 L Phosphorus 3.7 Magnesium 2.7 H Ferritin Total Bilirubin AST ALT Alkaline Phosphatase Lactate Dehydrogenase Total Creatine Kinase Troponin I High Sens C-Reactive Protein B-Natriuretic Peptide Total Protein Albumin 3.2 L Lipase Procalcitonin Urine Color Urine Appearance Urine pH Ur Specific [place] Urine Protein Urine Glucose (UA) Urine Ketones Urine Blood Urine Nitrite Ur Leukocyte Esterase Urine RBC Urine WBC Ur Squamous Epith Cells Urine Bacteria Hyaline Casts Granular Casts Urine Yeast Stool Occult Blood Random Vancomycin Lyme Screen IgG & IgM Lyme Progressive Test C. difficile Toxin A&B C. difficile Antigen C. difficile Interpret Coronavirus (PCR) Influenza Type A (PCR) Influenza Type B (PCR) RSV RNA Qual (PCR) Blood Type Antibody Screen Crossmatch 05/10/20 05/10/20 05/11/20 12:15 17:45 00:32 WBC RBC Hgb Hct MCV MCH MCHC RDW Plt Count MPV Immature Gran % (Auto) Neut % (Auto) Lymph % (Auto) [place] % (Auto) Eos % (Auto) Baso % (Auto) Lymph # (Auto) [place] # (Auto) Eos # (Auto) Baso # (Auto) Abs Immat Gran (auto) Absolute Neuts (auto) Absolute Nucleated RBC Nucleated RBC % (auto) Smear Tech's Comments Smear Path Review PT INR APTT PTT (Heparin Protocol) D-Dimer VBG pH VBG pCO2 VBG pO2 VBG HCO3 VBG O2 Saturation VBG Base Excess Sodium Potassium Chloride Carbon Dioxide Anion Gap BUN Creatinine Estim Creat Clear Calc Estimated GFR POC Glucose 314 H 328 H 326 H Random Glucose Lactic Acid Calcium Phosphorus Magnesium Ferritin Total Bilirubin AST ALT Alkaline Phosphatase Lactate Dehydrogenase Total Creatine Kinase Troponin I High Sens C-Reactive Protein B-Natriuretic Peptide Total Protein Albumin Lipase Procalcitonin Urine Color Urine Appearance Urine pH Ur Specific [place] Urine Protein Urine Glucose (UA) Urine Ketones Urine Blood Urine Nitrite Ur Leukocyte Esterase Urine RBC Urine WBC Ur Squamous Epith Cells Urine Bacteria Hyaline Casts Granular Casts Urine Yeast Stool Occult Blood Random Vancomycin Lyme Screen IgG & IgM Lyme Progressive Test C. difficile Toxin A&B C. difficile Antigen C. difficile Interpret Coronavirus (PCR) Influenza Type A (PCR) Influenza Type B (PCR) RSV RNA Qual (PCR) Blood Type Antibody Screen Crossmatch 05/11/20 05/11/20 05/11/20 05:19 05:19 05:19 WBC 4.0 L RBC 2.29 L Hgb 6.9 L* Hct 25.4 L MCV 110.9 H MCH 30.1 MCHC 27.2 L RDW 16.5 H Plt Count 68 L MPV 12.9 H Immature Gran % (Auto) Cancelled Neut % (Auto) Cancelled Lymph % (Auto) Cancelled [place] % (Auto) Cancelled Eos % (Auto) Cancelled Baso % (Auto) Cancelled Lymph # (Auto) Cancelled [place] # (Auto) Cancelled Eos # (Auto) Cancelled Baso # (Auto) Cancelled Abs Immat Gran (auto) Cancelled Absolute Neuts (auto) Cancelled Absolute Nucleated RBC 0.000 Nucleated RBC % (auto) 0.0 Smear Tech's Comments Smear Path Review PT INR APTT PTT (Heparin Protocol) D-Dimer VBG pH 7.28 L VBG pCO2 69 VBG pO2 63 VBG HCO3 32 VBG O2 Saturation 89.0 VBG Base Excess 5.5 Sodium 150 H Potassium 4.9 D Chloride 114 H Carbon Dioxide 27 Anion Gap 14 BUN 64 H Creatinine 2.29 H Estim Creat Clear Calc 68.6 Estimated GFR 30 POC Glucose Random Glucose 341 H Lactic Acid Calcium 7.8 L Phosphorus 4.1 Magnesium 2.9 H Ferritin Total Bilirubin AST ALT Alkaline Phosphatase Lactate Dehydrogenase Total Creatine Kinase Troponin I High Sens C-Reactive Protein B-Natriuretic Peptide Total Protein Albumin 3.5 Lipase Procalcitonin Urine Color Urine Appearance Urine pH Ur Specific [place] Urine Protein Urine Glucose (UA) Urine Ketones Urine Blood Urine Nitrite Ur Leukocyte Esterase Urine RBC Urine WBC Ur Squamous Epith Cells Urine Bacteria Hyaline Casts Granular Casts Urine Yeast Stool Occult Blood Random Vancomycin Lyme Screen IgG & IgM Lyme Progressive Test C. difficile Toxin A&B C. difficile Antigen C. difficile Interpret Coronavirus (PCR) Influenza Type A (PCR) Influenza Type B (PCR) RSV RNA Qual (PCR) Blood Type Antibody Screen Crossmatch 05/11/20 05/11/20 05/11/20 05:42 06:53 11:58 WBC RBC Hgb Hct MCV MCH MCHC RDW Plt Count MPV Immature Gran % (Auto) Neut % (Auto) Lymph % (Auto) [place] % (Auto) Eos % (Auto) Baso % (Auto) Lymph # (Auto) [place] # (Auto) Eos # (Auto) Baso # (Auto) Abs Immat Gran (auto) Absolute Neuts (auto) Absolute Nucleated RBC Nucleated RBC % (auto) Smear Tech's Comments Smear Path Review PT INR APTT PTT (Heparin Protocol) D-Dimer VBG pH VBG pCO2 VBG pO2 VBG HCO3 VBG O2 Saturation VBG Base Excess Sodium Potassium Chloride Carbon Dioxide Anion Gap BUN Creatinine Estim Creat Clear Calc Estimated GFR POC Glucose 307 H 383 H* Random Glucose Lactic Acid Calcium Phosphorus Magnesium Ferritin Total Bilirubin AST ALT Alkaline Phosphatase Lactate Dehydrogenase Total Creatine Kinase Troponin I High Sens C-Reactive Protein B-Natriuretic Peptide Total Protein Albumin Lipase Procalcitonin Urine Color Urine Appearance Urine pH Ur Specific [place] Urine Protein Urine Glucose (UA) Urine Ketones Urine Blood Urine Nitrite Ur Leukocyte Esterase Urine RBC Urine WBC Ur Squamous Epith Cells Urine Bacteria Hyaline Casts Granular Casts Urine Yeast Stool Occult Blood Random Vancomycin Lyme Screen IgG & IgM Lyme Progressive Test C. difficile Toxin A&B C. difficile Antigen C. difficile Interpret Coronavirus (PCR) Influenza Type A (PCR) Influenza Type B (PCR) RSV RNA Qual (PCR) Blood Type A Negative Antibody Screen NEGATIVE Crossmatch See Detail 05/11/20 05/11/20 05/11/20 11:59 18:30 23:32 WBC RBC Hgb Hct MCV MCH MCHC RDW Plt Count MPV Immature Gran % (Auto) Neut % (Auto) Lymph % (Auto) [place] % (Auto) Eos % (Auto) Baso % (Auto) Lymph # (Auto) [place] # (Auto) Eos # (Auto) Baso # (Auto) Abs Immat Gran (auto) Absolute Neuts (auto) Absolute Nucleated RBC Nucleated RBC % (auto) Smear Tech's Comments Smear Path Review PT INR APTT PTT (Heparin Protocol) D-Dimer VBG pH VBG pCO2 VBG pO2 VBG HCO3 VBG O2 Saturation VBG Base Excess Sodium Potassium Chloride Carbon Dioxide Anion Gap BUN Creatinine Estim Creat Clear Calc Estimated GFR POC Glucose 403 H* 358 H* 364 H* Random Glucose Lactic Acid Calcium Phosphorus Magnesium Ferritin Total Bilirubin AST ALT Alkaline Phosphatase Lactate Dehydrogenase Total Creatine Kinase Troponin I High Sens C-Reactive Protein B-Natriuretic Peptide Total Protein Albumin Lipase Procalcitonin Urine Color Urine Appearance Urine pH Ur Specific [place] Urine Protein Urine Glucose (UA) Urine Ketones Urine Blood Urine Nitrite Ur Leukocyte Esterase Urine RBC Urine WBC Ur Squamous Epith Cells Urine Bacteria Hyaline Casts Granular Casts Urine Yeast Stool Occult Blood Random Vancomycin Lyme Screen IgG & IgM Lyme Progressive Test C. difficile Toxin A&B C. difficile Antigen C. difficile Interpret Coronavirus (PCR) Influenza Type A (PCR) Influenza Type B (PCR) RSV RNA Qual (PCR) Blood Type Antibody Screen Crossmatch 05/12/20 05/12/20 05/12/20 05:06 05:06 05:06 WBC 6.0 RBC 2.56 L Hgb 7.8 L Hct 28.3 L MCV 110.5 H MCH 30.5 MCHC 27.6 L RDW 17.2 H Plt Count 74 L MPV 12.9 H Immature Gran % (Auto) 0.8 H Neut % (Auto) 82.5 H Lymph % (Auto) 7.9 L [place] % (Auto) 7.0 Eos % (Auto) 1.3 Baso % (Auto) 0.5 Lymph # (Auto) 0.5 L [place] # (Auto) 0.4 Eos # (Auto) 0.1 Baso # (Auto) 0.0 Abs Immat Gran (auto) 0.05 H Absolute Neuts (auto) 4.9 Absolute Nucleated RBC 0.040 H Nucleated RBC % (auto) 0.7 H Smear Tech's Comments VERIFIED Smear Path Review PT INR APTT PTT (Heparin Protocol) D-Dimer VBG pH 7.16 L* VBG pCO2 92 VBG pO2 99 VBG HCO3 33 VBG O2 Saturation 95.0 VBG Base Excess 3.3 Sodium 145 Potassium 5.8 H Chloride 110 H Carbon Dioxide 25 Anion Gap 16 BUN 87 H* D Creatinine 3.93 H Estim Creat Clear Calc 40.0 Estimated GFR 16 POC Glucose Random Glucose 415 H* Lactic Acid Calcium 7.9 L Phosphorus 7.4 H Magnesium 3.1 H Ferritin Total Bilirubin AST ALT Alkaline Phosphatase Lactate Dehydrogenase Total Creatine Kinase Troponin I High Sens C-Reactive Protein B-Natriuretic Peptide Total Protein Albumin 3.6 Lipase Procalcitonin Urine Color Urine Appearance Urine pH Ur Specific [place] Urine Protein Urine Glucose (UA) Urine Ketones Urine Blood Urine Nitrite Ur Leukocyte Esterase Urine RBC Urine WBC Ur Squamous Epith Cells Urine Bacteria Hyaline Casts Granular Casts Urine Yeast Stool Occult Blood Random Vancomycin Lyme Screen IgG & IgM Lyme Progressive Test C. difficile Toxin A&B C. difficile Antigen C. difficile Interpret Coronavirus (PCR) Influenza Type A (PCR) Influenza Type B (PCR) RSV RNA Qual (PCR) Blood Type Antibody Screen Crossmatch 05/12/20 05/12/20 05/12/20 05:32 10:01 11:19 WBC RBC Hgb Hct MCV MCH MCHC RDW Plt Count MPV Immature Gran % (Auto) Neut % (Auto) Lymph % (Auto) [place] % (Auto) Eos % (Auto) Baso % (Auto) Lymph # (Auto) [place] # (Auto) Eos # (Auto) Baso # (Auto) Abs Immat Gran (auto) Absolute Neuts (auto) Absolute Nucleated RBC Nucleated RBC % (auto) Smear Tech's Comments Smear Path Review PT INR APTT PTT (Heparin Protocol) D-Dimer VBG pH 7.23 L VBG pCO2 66 VBG pO2 122 VBG HCO3 28 VBG O2 Saturation 97.0 VBG Base Excess 0.2 Sodium Potassium Chloride Carbon Dioxide Anion Gap BUN Creatinine Estim Creat Clear Calc Estimated GFR POC Glucose 335 H 394 H* Random Glucose Lactic Acid Calcium Phosphorus Magnesium Ferritin Total Bilirubin AST ALT Alkaline Phosphatase Lactate Dehydrogenase Total Creatine Kinase Troponin I High Sens C-Reactive Protein B-Natriuretic Peptide Total Protein Albumin Lipase Procalcitonin Urine Color Urine Appearance Urine pH Ur Specific [place] Urine Protein Urine Glucose (UA) Urine Ketones Urine Blood Urine Nitrite Ur Leukocyte Esterase Urine RBC Urine WBC Ur Squamous Epith Cells Urine Bacteria Hyaline Casts Granular Casts Urine Yeast Stool Occult Blood Random Vancomycin Lyme Screen IgG & IgM Lyme Progressive Test C. difficile Toxin A&B C. difficile Antigen C. difficile Interpret Coronavirus (PCR) Influenza Type A (PCR) Influenza Type B (PCR) RSV RNA Qual (PCR) Blood Type Antibody Screen Crossmatch 05/12/20 05/12/20 05/12/20 12:24 12:27 14:09 WBC RBC Hgb Hct MCV MCH MCHC RDW Plt Count MPV Immature Gran % (Auto) Neut % (Auto) Lymph % (Auto) [place] % (Auto) Eos % (Auto) Baso % (Auto) Lymph # (Auto) [place] # (Auto) Eos # (Auto) Baso # (Auto) Abs Immat Gran (auto) Absolute Neuts (auto) Absolute Nucleated RBC Nucleated RBC % (auto) Smear Tech's Comments Smear Path Review PT INR APTT PTT (Heparin Protocol) D-Dimer VBG pH VBG pCO2 VBG pO2 VBG HCO3 VBG O2 Saturation VBG Base Excess Sodium Potassium Chloride Carbon Dioxide Anion Gap BUN Creatinine Estim Creat Clear Calc Estimated GFR POC Glucose 451 H* 427 H* 432 H* Random Glucose Lactic Acid Calcium Phosphorus Magnesium Ferritin Total Bilirubin AST ALT Alkaline Phosphatase Lactate Dehydrogenase Total Creatine Kinase Troponin I High Sens C-Reactive Protein B-Natriuretic Peptide Total Protein Albumin Lipase Procalcitonin Urine Color Urine Appearance Urine pH Ur Specific [place] Urine Protein Urine Glucose (UA) Urine Ketones Urine Blood Urine Nitrite Ur Leukocyte Esterase Urine RBC Urine WBC Ur Squamous Epith Cells Urine Bacteria Hyaline Casts Granular Casts Urine Yeast Stool Occult Blood Random Vancomycin Lyme Screen IgG & IgM Lyme Progressive Test C. difficile Toxin A&B C. difficile Antigen C. difficile Interpret Coronavirus (PCR) Influenza Type A (PCR) Influenza Type B (PCR) RSV RNA Qual (PCR) Blood Type Antibody Screen Crossmatch 05/12/20 05/12/20 05/12/20 14:16 14:56 16:05 WBC RBC Hgb Hct MCV MCH MCHC RDW Plt Count MPV Immature Gran % (Auto) Neut % (Auto) Lymph % (Auto) [place] % (Auto) Eos % (Auto) Baso % (Auto) Lymph # (Auto) [place] # (Auto) Eos # (Auto) Baso # (Auto) Abs Immat Gran (auto) Absolute Neuts (auto) Absolute Nucleated RBC Nucleated RBC % (auto) Smear Tech's Comments Smear Path Review PT INR APTT PTT (Heparin Protocol) D-Dimer VBG pH VBG pCO2 VBG pO2 VBG HCO3 VBG O2 Saturation VBG Base Excess Sodium 144 Potassium 5.3 H Chloride 109 H Carbon Dioxide 21 L Anion Gap 19 BUN 97 H* Creatinine 4.63 H* Estim Creat Clear Calc 32.6 Estimated GFR 13 POC Glucose 411 H* 363 H* Random Glucose 479 H* Lactic Acid Calcium 7.8 L Phosphorus Magnesium Ferritin Total Bilirubin AST ALT Alkaline Phosphatase Lactate Dehydrogenase Total Creatine Kinase Troponin I High Sens C-Reactive Protein B-Natriuretic Peptide Total Protein Albumin Lipase Procalcitonin Urine Color Urine Appearance Urine pH Ur Specific [place] Urine Protein Urine Glucose (UA) Urine Ketones Urine Blood Urine Nitrite Ur Leukocyte Esterase Urine RBC Urine WBC Ur Squamous Epith Cells Urine Bacteria Hyaline Casts Granular Casts Urine Yeast Stool Occult Blood Random Vancomycin Lyme Screen IgG & IgM Lyme Progressive Test C. difficile Toxin A&B C. difficile Antigen C. difficile Interpret Coronavirus (PCR) Influenza Type A (PCR) Influenza Type B (PCR) RSV RNA Qual (PCR) Blood Type Antibody Screen Crossmatch 05/12/20 05/12/20 05/12/20 17:06 18:14 18:54 WBC RBC Hgb Hct MCV MCH MCHC RDW Plt Count MPV Immature Gran % (Auto) Neut % (Auto) Lymph % (Auto) [place] % (Auto) Eos % (Auto) Baso % (Auto) Lymph # (Auto) [place] # (Auto) Eos # (Auto) Baso # (Auto) Abs Immat Gran (auto) Absolute Neuts (auto) Absolute Nucleated RBC Nucleated RBC % (auto) Smear Tech's Comments Smear Path Review PT INR APTT PTT (Heparin Protocol) D-Dimer VBG pH VBG pCO2 VBG pO2 VBG HCO3 VBG O2 Saturation VBG Base Excess Sodium Potassium Chloride Carbon Dioxide Anion Gap BUN Creatinine Estim Creat Clear Calc Estimated GFR POC Glucose 359 H* 356 H* Random Glucose Lactic Acid Calcium Phosphorus Magnesium Ferritin Total Bilirubin AST ALT Alkaline Phosphatase Lactate Dehydrogenase Total Creatine Kinase Troponin I High Sens C-Reactive Protein B-Natriuretic Peptide Total Protein Albumin Lipase Procalcitonin Urine Color Urine Appearance Urine pH Ur Specific [place] Urine Protein Urine Glucose (UA) Urine Ketones Urine Blood Urine Nitrite Ur Leukocyte Esterase Urine RBC Urine WBC Ur Squamous Epith Cells Urine Bacteria Hyaline Casts Granular Casts Urine Yeast Stool Occult Blood Random Vancomycin 10.4 L Lyme Screen IgG & IgM Lyme Progressive Test C. difficile Toxin A&B C. difficile Antigen C. difficile Interpret Coronavirus (PCR) Influenza Type A (PCR) Influenza Type B (PCR) RSV RNA Qual (PCR) Blood Type Antibody Screen Crossmatch 05/12/20 05/12/20 05/12/20 19:09 19:45 21:17 WBC RBC Hgb Hct MCV MCH MCHC RDW Plt Count MPV Immature Gran % (Auto) Neut % (Auto) Lymph % (Auto) [place] % (Auto) Eos % (Auto) Baso % (Auto) Lymph # (Auto) [place] # (Auto) Eos # (Auto) Baso # (Auto) Abs Immat Gran (auto) Absolute Neuts (auto) Absolute Nucleated RBC Nucleated RBC % (auto) Smear Tech's Comments Smear Path Review PT INR APTT PTT (Heparin Protocol) D-Dimer VBG pH VBG pCO2 VBG pO2 VBG HCO3 VBG O2 Saturation VBG Base Excess Sodium Potassium Chloride Carbon Dioxide Anion Gap BUN Creatinine Estim Creat Clear Calc Estimated GFR POC Glucose 343 H 379 H* 287 H Random Glucose Lactic Acid Calcium Phosphorus Magnesium Ferritin Total Bilirubin AST ALT Alkaline Phosphatase Lactate Dehydrogenase Total Creatine Kinase Troponin I High Sens C-Reactive Protein B-Natriuretic Peptide Total Protein Albumin Lipase Procalcitonin Urine Color Urine Appearance Urine pH Ur Specific [place] Urine Protein Urine Glucose (UA) Urine Ketones Urine Blood Urine Nitrite Ur Leukocyte Esterase Urine RBC Urine WBC Ur Squamous Epith Cells Urine Bacteria Hyaline Casts Granular Casts Urine Yeast Stool Occult Blood Random Vancomycin Lyme Screen IgG & IgM Lyme Progressive Test C. difficile Toxin A&B C. difficile Antigen C. difficile Interpret Coronavirus (PCR) Influenza Type A (PCR) Influenza Type B (PCR) RSV RNA Qual (PCR) Blood Type Antibody Screen Crossmatch 05/12/20 05/12/20 05/13/20 22:07 23:28 01:10 WBC RBC Hgb Hct MCV MCH MCHC RDW Plt Count MPV Immature Gran % (Auto) Neut % (Auto) Lymph % (Auto) [place] % (Auto) Eos % (Auto) Baso % (Auto) Lymph # (Auto) [place] # (Auto) Eos # (Auto) Baso # (Auto) Abs Immat Gran (auto) Absolute Neuts (auto) Absolute Nucleated RBC Nucleated RBC % (auto) Smear Tech's Comments Smear Path Review PT INR APTT PTT (Heparin Protocol) D-Dimer VBG pH VBG pCO2 VBG pO2 VBG HCO3 VBG O2 Saturation VBG Base Excess Sodium Potassium Chloride Carbon Dioxide Anion Gap BUN Creatinine Estim Creat Clear Calc Estimated GFR POC Glucose 306 H 285 H 246 H Random Glucose Lactic Acid Calcium Phosphorus Magnesium Ferritin Total Bilirubin AST ALT Alkaline Phosphatase Lactate Dehydrogenase Total Creatine Kinase Troponin I High Sens C-Reactive Protein B-Natriuretic Peptide Total Protein Albumin Lipase Procalcitonin Urine Color Urine Appearance Urine pH Ur Specific [place] Urine Protein Urine Glucose (UA) Urine Ketones Urine Blood Urine Nitrite Ur Leukocyte Esterase Urine RBC Urine WBC Ur Squamous Epith Cells Urine Bacteria Hyaline Casts Granular Casts Urine Yeast Stool Occult Blood Random Vancomycin Lyme Screen IgG & IgM Lyme Progressive Test C. difficile Toxin A&B C. difficile Antigen C. difficile Interpret Coronavirus (PCR) Influenza Type A (PCR) Influenza Type B (PCR) RSV RNA Qual (PCR) Blood Type Antibody Screen Crossmatch 05/13/20 05/13/20 05/13/20 02:00 03:16 04:30 WBC RBC Hgb Hct MCV MCH MCHC RDW Plt Count MPV Immature Gran % (Auto) Neut % (Auto) Lymph % (Auto) [place] % (Auto) Eos % (Auto) Baso % (Auto) Lymph # (Auto) [place] # (Auto) Eos # (Auto) Baso # (Auto) Abs Immat Gran (auto) Absolute Neuts (auto) Absolute Nucleated RBC Nucleated RBC % (auto) Smear Tech's Comments Smear Path Review PT INR APTT PTT (Heparin Protocol) D-Dimer VBG pH VBG pCO2 VBG pO2 VBG HCO3 VBG O2 Saturation VBG Base Excess Sodium Potassium Chloride Carbon Dioxide Anion Gap BUN Creatinine Estim Creat Clear Calc Estimated GFR POC Glucose 248 H 228 H 216 H Random Glucose Lactic Acid Calcium Phosphorus Magnesium Ferritin Total Bilirubin AST ALT Alkaline Phosphatase Lactate Dehydrogenase Total Creatine Kinase Troponin I High Sens C-Reactive Protein B-Natriuretic Peptide Total Protein Albumin Lipase Procalcitonin Urine Color Urine Appearance Urine pH Ur Specific [place] Urine Protein Urine Glucose (UA) Urine Ketones Urine Blood Urine Nitrite Ur Leukocyte Esterase Urine RBC Urine WBC Ur Squamous Epith Cells Urine Bacteria Hyaline Casts Granular Casts Urine Yeast Stool Occult Blood Random Vancomycin Lyme Screen IgG & IgM Lyme Progressive Test C. difficile Toxin A&B C. difficile Antigen C. difficile Interpret Coronavirus (PCR) Influenza Type A (PCR) Influenza Type B (PCR) RSV RNA Qual (PCR) Blood Type Antibody Screen Crossmatch 05/13/20 05/13/20 05/13/20 04:55 04:55 04:55 WBC 3.3 L RBC 2.33 L Hgb 7.1 L Hct 24.1 L MCV 103.4 H D MCH 30.5 MCHC 29.5 L RDW 16.3 H Plt Count 84 L MPV 12.6 H Immature Gran % (Auto) 0.9 H Neut % (Auto) 78.1 H Lymph % (Auto) 9.9 L [place] % (Auto) 6.9 Eos % (Auto) 3.6 Baso % (Auto) 0.6 Lymph # (Auto) 0.3 L [place] # (Auto) 0.2 Eos # (Auto) 0.1 Baso # (Auto) 0.0 Abs Immat Gran (auto) 0.03 Absolute Neuts (auto) 2.6 Absolute Nucleated RBC 0.040 H Nucleated RBC % (auto) 1.2 H Smear Tech's Comments VERIFIED Smear Path Review PT INR APTT PTT (Heparin Protocol) D-Dimer VBG pH 7.33 VBG pCO2 49 VBG pO2 112 VBG HCO3 26 VBG O2 Saturation 97.0 VBG Base Excess 0.4 Sodium 145 Potassium 4.6 Chloride 111 H Carbon Dioxide 21 L Anion Gap 18 BUN 107 H* Creatinine 5.41 H* Estim Creat Clear Calc 27.9 Estimated GFR 11 POC Glucose Random Glucose 241 H D Lactic Acid Calcium 7.6 L Phosphorus 5.7 H Magnesium 3.0 H Ferritin Total Bilirubin AST ALT Alkaline Phosphatase Lactate Dehydrogenase Total Creatine Kinase Troponin I High Sens C-Reactive Protein B-Natriuretic Peptide Total Protein Albumin 3.0 L Lipase Procalcitonin Urine Color Urine Appearance Urine pH Ur Specific [place] Urine Protein Urine Glucose (UA) Urine Ketones Urine Blood Urine Nitrite Ur Leukocyte Esterase Urine RBC Urine WBC Ur Squamous Epith Cells Urine Bacteria Hyaline Casts Granular Casts Urine Yeast Stool Occult Blood Random Vancomycin Lyme Screen IgG & IgM Lyme Progressive Test C. difficile Toxin A&B C. difficile Antigen C. difficile Interpret Coronavirus (PCR) Influenza Type A (PCR) Influenza Type B (PCR) RSV RNA Qual (PCR) Blood Type Antibody Screen Crossmatch 05/13/20 05/13/20 05/13/20 04:55 05:21 06:17 WBC RBC Hgb Hct MCV MCH MCHC RDW Plt Count MPV Immature Gran % (Auto) Neut % (Auto) Lymph % (Auto) [place] % (Auto) Eos % (Auto) Baso % (Auto) Lymph # (Auto) [place] # (Auto) Eos # (Auto) Baso # (Auto) Abs Immat Gran (auto) Absolute Neuts (auto) Absolute Nucleated RBC Nucleated RBC % (auto) Smear Tech's Comments Smear Path Review PT 15.0 H INR 1.3 H APTT PTT (Heparin Protocol) D-Dimer VBG pH VBG pCO2 VBG pO2 VBG HCO3 VBG O2 Saturation VBG Base Excess Sodium Potassium Chloride Carbon Dioxide Anion Gap BUN Creatinine Estim Creat Clear Calc Estimated GFR POC Glucose 206 H 189 H Random Glucose Lactic Acid Calcium Phosphorus Magnesium Ferritin Total Bilirubin AST ALT Alkaline Phosphatase Lactate Dehydrogenase Total Creatine Kinase Troponin I High Sens C-Reactive Protein B-Natriuretic Peptide Total Protein Albumin Lipase Procalcitonin Urine Color Urine Appearance Urine pH Ur Specific [place] Urine Protein Urine Glucose (UA) Urine Ketones Urine Blood Urine Nitrite Ur Leukocyte Esterase Urine RBC Urine WBC Ur Squamous Epith Cells Urine Bacteria Hyaline Casts Granular Casts Urine Yeast Stool Occult Blood Random Vancomycin Lyme Screen IgG & IgM Lyme Progressive Test C. difficile Toxin A&B C. difficile Antigen C. difficile Interpret Coronavirus (PCR) Influenza Type A (PCR) Influenza Type B (PCR) RSV RNA Qual (PCR) Blood Type Antibody Screen Crossmatch 05/13/20 05/13/20 05/13/20 07:29 09:08 10:59 WBC RBC Hgb Hct MCV MCH MCHC RDW Plt Count MPV Immature Gran % (Auto) Neut % (Auto) Lymph % (Auto) [place] % (Auto) Eos % (Auto) Baso % (Auto) Lymph # (Auto) [place] # (Auto) Eos # (Auto) Baso # (Auto) Abs Immat Gran (auto) Absolute Neuts (auto) Absolute Nucleated RBC Nucleated RBC % (auto) Smear Tech's Comments Smear Path Review PT INR APTT PTT (Heparin Protocol) D-Dimer VBG pH VBG pCO2 VBG pO2 VBG HCO3 VBG O2 Saturation VBG Base Excess Sodium Potassium Chloride Carbon Dioxide Anion Gap BUN Creatinine Estim Creat Clear Calc Estimated GFR POC Glucose 186 H 166 H 158 H Random Glucose Lactic Acid Calcium Phosphorus Magnesium Ferritin Total Bilirubin AST ALT Alkaline Phosphatase Lactate Dehydrogenase Total Creatine Kinase Troponin I High Sens C-Reactive Protein B-Natriuretic Peptide Total Protein Albumin Lipase Procalcitonin Urine Color Urine Appearance Urine pH Ur Specific [place] Urine Protein Urine Glucose (UA) Urine Ketones Urine Blood Urine Nitrite Ur Leukocyte Esterase Urine RBC Urine WBC Ur Squamous Epith Cells Urine Bacteria Hyaline Casts Granular Casts Urine Yeast Stool Occult Blood Random Vancomycin Lyme Screen IgG & IgM Lyme Progressive Test C. difficile Toxin A&B C. difficile Antigen C. difficile Interpret Coronavirus (PCR) Influenza Type A (PCR) Influenza Type B (PCR) RSV RNA Qual (PCR) Blood Type Antibody Screen Crossmatch 05/13/20 05/13/20 05/13/20 13:02 15:01 17:17 WBC RBC Hgb Hct MCV MCH MCHC RDW Plt Count MPV Immature Gran % (Auto) Neut % (Auto) Lymph % (Auto) [place] % (Auto) Eos % (Auto) Baso % (Auto) Lymph # (Auto) [place] # (Auto) Eos # (Auto) Baso # (Auto) Abs Immat Gran (auto) Absolute Neuts (auto) Absolute Nucleated RBC Nucleated RBC % (auto) Smear Tech's Comments Smear Path Review PT INR APTT PTT (Heparin Protocol) D-Dimer VBG pH VBG pCO2 VBG pO2 VBG HCO3 VBG O2 Saturation VBG Base Excess Sodium Potassium Chloride Carbon Dioxide Anion Gap BUN Creatinine Estim Creat Clear Calc Estimated GFR POC Glucose 161 H 145 H 118 H Random Glucose Lactic Acid Calcium Phosphorus Magnesium Ferritin Total Bilirubin AST ALT Alkaline Phosphatase Lactate Dehydrogenase Total Creatine Kinase Troponin I High Sens C-Reactive Protein B-Natriuretic Peptide Total Protein Albumin Lipase Procalcitonin Urine Color Urine Appearance Urine pH Ur Specific [place] Urine Protein Urine Glucose (UA) Urine Ketones Urine Blood Urine Nitrite Ur Leukocyte Esterase Urine RBC Urine WBC Ur Squamous Epith Cells Urine Bacteria Hyaline Casts Granular Casts Urine Yeast Stool Occult Blood Random Vancomycin Lyme Screen IgG & IgM Lyme Progressive Test C. difficile Toxin A&B C. difficile Antigen C. difficile Interpret Coronavirus (PCR) Influenza Type A (PCR) Influenza Type B (PCR) RSV RNA Qual (PCR) Blood Type Antibody Screen Crossmatch 05/13/20 05/13/20 05/13/20 19:44 21:18 22:08 WBC RBC Hgb Hct MCV MCH MCHC RDW Plt Count MPV Immature Gran % (Auto) Neut % (Auto) Lymph % (Auto) [place] % (Auto) Eos % (Auto) Baso % (Auto) Lymph # (Auto) [place] # (Auto) Eos # (Auto) Baso # (Auto) Abs Immat Gran (auto) Absolute Neuts (auto) Absolute Nucleated RBC Nucleated RBC % (auto) Smear Tech's Comments Smear Path Review PT INR APTT PTT (Heparin Protocol) D-Dimer VBG pH VBG pCO2 VBG pO2 VBG HCO3 VBG O2 Saturation VBG Base Excess Sodium Potassium Chloride Carbon Dioxide Anion Gap BUN Creatinine Estim Creat Clear Calc Estimated GFR POC Glucose 184 H 200 H 178 H Random Glucose Lactic Acid Calcium Phosphorus Magnesium Ferritin Total Bilirubin AST ALT Alkaline Phosphatase Lactate Dehydrogenase Total Creatine Kinase Troponin I High Sens C-Reactive Protein B-Natriuretic Peptide Total Protein Albumin Lipase Procalcitonin Urine Color Urine Appearance Urine pH Ur Specific [place] Urine Protein Urine Glucose (UA) Urine Ketones Urine Blood Urine Nitrite Ur Leukocyte Esterase Urine RBC Urine WBC Ur Squamous Epith Cells Urine Bacteria Hyaline Casts Granular Casts Urine Yeast Stool Occult Blood Random Vancomycin Lyme Screen IgG & IgM Lyme Progressive Test C. difficile Toxin A&B C. difficile Antigen C. difficile Interpret Coronavirus (PCR) Influenza Type A (PCR) Influenza Type B (PCR) RSV RNA Qual (PCR) Blood Type Antibody Screen Crossmatch 05/13/20 05/14/20 05/14/20 23:09 00:19 01:22 WBC RBC Hgb Hct MCV MCH MCHC RDW Plt Count MPV Immature Gran % (Auto) Neut % (Auto) Lymph % (Auto) [place] % (Auto) Eos % (Auto) Baso % (Auto) Lymph # (Auto) [place] # (Auto) Eos # (Auto) Baso # (Auto) Abs Immat Gran (auto) Absolute Neuts (auto) Absolute Nucleated RBC Nucleated RBC % (auto) Smear Tech's Comments Smear Path Review PT INR APTT PTT (Heparin Protocol) D-Dimer VBG pH VBG pCO2 VBG pO2 VBG HCO3 VBG O2 Saturation VBG Base Excess Sodium Potassium Chloride Carbon Dioxide Anion Gap BUN Creatinine Estim Creat Clear Calc Estimated GFR POC Glucose 164 H 161 H 150 H Random Glucose Lactic Acid Calcium Phosphorus Magnesium Ferritin Total Bilirubin AST ALT Alkaline Phosphatase Lactate Dehydrogenase Total Creatine Kinase Troponin I High Sens C-Reactive Protein B-Natriuretic Peptide Total Protein Albumin Lipase Procalcitonin Urine Color Urine Appearance Urine pH Ur Specific [place] Urine Protein Urine Glucose (UA) Urine Ketones Urine Blood Urine Nitrite Ur Leukocyte Esterase Urine RBC Urine WBC Ur Squamous Epith Cells Urine Bacteria Hyaline Casts Granular Casts Urine Yeast Stool Occult Blood Random Vancomycin Lyme Screen IgG & IgM Lyme Progressive Test C. difficile Toxin A&B C. difficile Antigen C. difficile Interpret Coronavirus (PCR) Influenza Type A (PCR) Influenza Type B (PCR) RSV RNA Qual (PCR) Blood Type Antibody Screen Crossmatch 05/14/20 05/14/20 05/14/20 02:26 03:42 05:05 WBC RBC Hgb Hct MCV MCH MCHC RDW Plt Count MPV Immature Gran % (Auto) Neut % (Auto) Lymph % (Auto) [place] % (Auto) Eos % (Auto) Baso % (Auto) Lymph # (Auto) [place] # (Auto) Eos # (Auto) Baso # (Auto) Abs Immat Gran (auto) Absolute Neuts (auto) Absolute Nucleated RBC Nucleated RBC % (auto) Smear Tech's Comments Smear Path Review PT INR APTT PTT (Heparin Protocol) D-Dimer VBG pH VBG pCO2 VBG pO2 VBG HCO3 VBG O2 Saturation VBG Base Excess Sodium Potassium Chloride Carbon Dioxide Anion Gap BUN Creatinine Estim Creat Clear Calc Estimated GFR POC Glucose 150 H 136 H 143 H Random Glucose Lactic Acid Calcium Phosphorus Magnesium Ferritin Total Bilirubin AST ALT Alkaline Phosphatase Lactate Dehydrogenase Total Creatine Kinase Troponin I High Sens C-Reactive Protein B-Natriuretic Peptide Total Protein Albumin Lipase Procalcitonin Urine Color Urine Appearance Urine pH Ur Specific [place] Urine Protein Urine Glucose (UA) Urine Ketones Urine Blood Urine Nitrite Ur Leukocyte Esterase Urine RBC Urine WBC Ur Squamous Epith Cells Urine Bacteria Hyaline Casts Granular Casts Urine Yeast Stool Occult Blood Random Vancomycin Lyme Screen IgG & IgM Lyme Progressive Test C. difficile Toxin A&B C. difficile Antigen C. difficile Interpret Coronavirus (PCR) Influenza Type A (PCR) Influenza Type B (PCR) RSV RNA Qual (PCR) Blood Type Antibody Screen Crossmatch 05/14/20 05/14/20 05/14/20 05:41 05:41 05:41 WBC 3.2 L RBC 2.41 L Hgb 7.2 L Hct 24.7 L MCV 102.5 H MCH 29.9 MCHC 29.1 L RDW 16.1 H Plt Count 84 L MPV 13.1 H Immature Gran % (Auto) 0.6 H Neut % (Auto) 80.8 H Lymph % (Auto) 6.6 L [place] % (Auto) 7.0 Eos % (Auto) 4.4 H Baso % (Auto) 0.6 Lymph # (Auto) 0.2 L [place] # (Auto) 0.2 Eos # (Auto) 0.1 Baso # (Auto) 0.0 Abs Immat Gran (auto) 0.02 Absolute Neuts (auto) 2.6 Absolute Nucleated RBC 0.020 H Nucleated RBC % (auto) 0.6 H Smear Tech's Comments VERIFIED Smear Path Review PT INR APTT PTT (Heparin Protocol) D-Dimer VBG pH 7.30 L VBG pCO2 51 VBG pO2 56 VBG HCO3 25 VBG O2 Saturation 83.0 VBG Base Excess -0.6 Sodium 143 Potassium 4.1 Chloride 109 H Carbon Dioxide 23 Anion Gap 15 BUN 118 H* Creatinine 6.19 H* Estim Creat Clear Calc 24.6 Estimated GFR 10 POC Glucose Random Glucose 150 H D Lactic Acid Calcium 7.7 L Phosphorus 5.7 H Magnesium 3.0 H Ferritin Total Bilirubin AST ALT Alkaline Phosphatase Lactate Dehydrogenase Total Creatine Kinase Troponin I High Sens C-Reactive Protein 9.50 H B-Natriuretic Peptide Total Protein Albumin 2.9 L Lipase Procalcitonin Urine Color Urine Appearance Urine pH Ur Specific [place] Urine Protein Urine Glucose (UA) Urine Ketones Urine Blood Urine Nitrite Ur Leukocyte Esterase Urine RBC Urine WBC Ur Squamous Epith Cells Urine Bacteria Hyaline Casts Granular Casts Urine Yeast Stool Occult Blood Random Vancomycin Lyme Screen IgG & IgM Lyme Progressive Test C. difficile Toxin A&B C. difficile Antigen C. difficile Interpret Coronavirus (PCR) Influenza Type A (PCR) Influenza Type B (PCR) RSV RNA Qual (PCR) Blood Type Antibody Screen Crossmatch 05/14/20 05/14/20 05/14/20 06:28 07:21 08:32 WBC RBC Hgb Hct MCV MCH MCHC RDW Plt Count MPV Immature Gran % (Auto) Neut % (Auto) Lymph % (Auto) [place] % (Auto) Eos % (Auto) Baso % (Auto) Lymph # (Auto) [place] # (Auto) Eos # (Auto) Baso # (Auto) Abs Immat Gran (auto) Absolute Neuts (auto) Absolute Nucleated RBC Nucleated RBC % (auto) Smear Tech's Comments Smear Path Review PT INR APTT PTT (Heparin Protocol) D-Dimer VBG pH VBG pCO2 VBG pO2 VBG HCO3 VBG O2 Saturation VBG Base Excess Sodium Potassium Chloride Carbon Dioxide Anion Gap BUN Creatinine Estim Creat Clear Calc Estimated GFR POC Glucose 130 H 137 H 128 H Random Glucose Lactic Acid Calcium Phosphorus Magnesium Ferritin Total Bilirubin AST ALT Alkaline Phosphatase Lactate Dehydrogenase Total Creatine Kinase Troponin I High Sens C-Reactive Protein B-Natriuretic Peptide Total Protein Albumin Lipase Procalcitonin Urine Color Urine Appearance Urine pH Ur Specific [place] Urine Protein Urine Glucose (UA) Urine Ketones Urine Blood Urine Nitrite Ur Leukocyte Esterase Urine RBC Urine WBC Ur Squamous Epith Cells Urine Bacteria Hyaline Casts Granular Casts Urine Yeast Stool Occult Blood Random Vancomycin Lyme Screen IgG & IgM Lyme Progressive Test C. difficile Toxin A&B C. difficile Antigen C. difficile Interpret Coronavirus (PCR) Influenza Type A (PCR) Influenza Type B (PCR) RSV RNA Qual (PCR) Blood Type Antibody Screen Crossmatch 05/14/20 05/14/20 05/14/20 09:59 10:27 13:21 WBC RBC Hgb Hct MCV MCH MCHC RDW Plt Count MPV Immature Gran % (Auto) Neut % (Auto) Lymph % (Auto) [place] % (Auto) Eos % (Auto) Baso % (Auto) Lymph # (Auto) [place] # (Auto) Eos # (Auto) Baso # (Auto) Abs Immat Gran (auto) Absolute Neuts (auto) Absolute Nucleated RBC Nucleated RBC % (auto) Smear Tech's Comments Smear Path Review PT INR APTT PTT (Heparin Protocol) D-Dimer VBG pH VBG pCO2 VBG pO2 VBG HCO3 VBG O2 Saturation VBG Base Excess Sodium Potassium Chloride Carbon Dioxide Anion Gap BUN Creatinine Estim Creat Clear Calc Estimated GFR POC Glucose 133 H Random Glucose Lactic Acid 0.8 Calcium Phosphorus Magnesium Ferritin Total Bilirubin AST ALT Alkaline Phosphatase Lactate Dehydrogenase Total Creatine Kinase Troponin I High Sens C-Reactive Protein B-Natriuretic Peptide Total Protein Albumin Lipase Procalcitonin Urine Color YELLOW Urine Appearance CLOUDY Urine pH 5.5 Ur Specific [place] 1.020 Urine Protein 2+ H Urine Glucose (UA) NEG Urine Ketones NEG Urine Blood 2+ H Urine Nitrite NEG Ur Leukocyte Esterase 1+ H Urine RBC 15-29 H Urine WBC 5-9 H Ur Squamous Epith Cells 1+ Urine Bacteria NONE Hyaline Casts 0-2 Granular Casts 0-2 Urine Yeast 3+ Stool Occult Blood Random Vancomycin Lyme Screen IgG & IgM Lyme Progressive Test C. difficile Toxin A&B C. difficile Antigen C. difficile Interpret Coronavirus (PCR) Influenza Type A (PCR) Influenza Type B (PCR) RSV RNA Qual (PCR) Blood Type Antibody Screen Crossmatch 05/14/20 05/14/20 05/14/20 13:30 16:34 17:23 WBC RBC Hgb Hct MCV MCH MCHC RDW Plt Count MPV Immature Gran % (Auto) Neut % (Auto) Lymph % (Auto) [place] % (Auto) Eos % (Auto) Baso % (Auto) Lymph # (Auto) [place] # (Auto) Eos # (Auto) Baso # (Auto) Abs Immat Gran (auto) Absolute Neuts (auto) Absolute Nucleated RBC Nucleated RBC % (auto) Smear Tech's Comments Smear Path Review PT INR APTT PTT (Heparin Protocol) D-Dimer VBG pH 7.25 L VBG pCO2 47 VBG pO2 77 VBG HCO3 20 VBG O2 Saturation 92.0 VBG Base Excess -5.9 Sodium Potassium Chloride Carbon Dioxide Anion Gap BUN Creatinine Estim Creat Clear Calc Estimated GFR POC Glucose 166 H 159 H Random Glucose Lactic Acid Calcium Phosphorus Magnesium Ferritin Total Bilirubin AST ALT Alkaline Phosphatase Lactate Dehydrogenase Total Creatine Kinase Troponin I High Sens C-Reactive Protein B-Natriuretic Peptide Total Protein Albumin Lipase Procalcitonin Urine Color Urine Appearance Urine pH Ur Specific [place] Urine Protein Urine Glucose (UA) Urine Ketones Urine Blood Urine Nitrite Ur Leukocyte Esterase Urine RBC Urine WBC Ur Squamous Epith Cells Urine Bacteria Hyaline Casts Granular Casts Urine Yeast Stool Occult Blood Random Vancomycin Lyme Screen IgG & IgM Lyme Progressive Test C. difficile Toxin A&B C. difficile Antigen C. difficile Interpret Coronavirus (PCR) Influenza Type A (PCR) Influenza Type B (PCR) RSV RNA Qual (PCR) Blood Type Antibody Screen Crossmatch 05/14/20 05/14/20 05/14/20 20:24 22:01 23:27 WBC RBC Hgb Hct MCV MCH MCHC RDW Plt Count MPV Immature Gran % (Auto) Neut % (Auto) Lymph % (Auto) [place] % (Auto) Eos % (Auto) Baso % (Auto) Lymph # (Auto) [place] # (Auto) Eos # (Auto) Baso # (Auto) Abs Immat Gran (auto) Absolute Neuts (auto) Absolute Nucleated RBC Nucleated RBC % (auto) Smear Tech's Comments Smear Path Review PT INR APTT PTT (Heparin Protocol) D-Dimer VBG pH VBG pCO2 VBG pO2 VBG HCO3 VBG O2 Saturation VBG Base Excess Sodium Potassium Chloride Carbon Dioxide Anion Gap BUN Creatinine Estim Creat Clear Calc Estimated GFR POC Glucose 174 H 174 H 160 H Random Glucose Lactic Acid Calcium Phosphorus Magnesium Ferritin Total Bilirubin AST ALT Alkaline Phosphatase Lactate Dehydrogenase Total Creatine Kinase Troponin I High Sens C-Reactive Protein B-Natriuretic Peptide Total Protein Albumin Lipase Procalcitonin Urine Color Urine Appearance Urine pH Ur Specific [place] Urine Protein Urine Glucose (UA) Urine Ketones Urine Blood Urine Nitrite Ur Leukocyte Esterase Urine RBC Urine WBC Ur Squamous Epith Cells Urine Bacteria Hyaline Casts Granular Casts Urine Yeast Stool Occult Blood Random Vancomycin Lyme Screen IgG & IgM Lyme Progressive Test C. difficile Toxin A&B C. difficile Antigen C. difficile Interpret Coronavirus (PCR) Influenza Type A (PCR) Influenza Type B (PCR) RSV RNA Qual (PCR) Blood Type Antibody Screen Crossmatch 05/15/20 05/15/20 05/15/20 02:00 03:31 05:38 WBC RBC Hgb Hct MCV MCH MCHC RDW Plt Count MPV Immature Gran % (Auto) Neut % (Auto) Lymph % (Auto) [place] % (Auto) Eos % (Auto) Baso % (Auto) Lymph # (Auto) [place] # (Auto) Eos # (Auto) Baso # (Auto) Abs Immat Gran (auto) Absolute Neuts (auto) Absolute Nucleated RBC Nucleated RBC % (auto) Smear Tech's Comments Smear Path Review PT INR APTT PTT (Heparin Protocol) D-Dimer VBG pH VBG pCO2 VBG pO2 VBG HCO3 VBG O2 Saturation VBG Base Excess Sodium Potassium Chloride Carbon Dioxide Anion Gap BUN Creatinine Estim Creat Clear Calc Estimated GFR POC Glucose 156 H 181 H 171 H Random Glucose Lactic Acid Calcium Phosphorus Magnesium Ferritin Total Bilirubin AST ALT Alkaline Phosphatase Lactate Dehydrogenase Total Creatine Kinase Troponin I High Sens C-Reactive Protein B-Natriuretic Peptide Total Protein Albumin Lipase Procalcitonin Urine Color Urine Appearance Urine pH Ur Specific [place] Urine Protein Urine Glucose (UA) Urine Ketones Urine Blood Urine Nitrite Ur Leukocyte Esterase Urine RBC Urine WBC Ur Squamous Epith Cells Urine Bacteria Hyaline Casts Granular Casts Urine Yeast Stool Occult Blood Random Vancomycin Lyme Screen IgG & IgM Lyme Progressive Test C. difficile Toxin A&B C. difficile Antigen C. difficile Interpret Coronavirus (PCR) Influenza Type A (PCR) Influenza Type B (PCR) RSV RNA Qual (PCR) Blood Type Antibody Screen Crossmatch 05/15/20 05/15/20 05/15/20 05:40 05:40 05:40 WBC RBC Hgb Hct MCV MCH MCHC RDW Plt Count MPV Immature Gran % (Auto) Neut % (Auto) Lymph % (Auto) [place] % (Auto) Eos % (Auto) Baso % (Auto) Lymph # (Auto) [place] # (Auto) Eos # (Auto) Baso # (Auto) Abs Immat Gran (auto) Absolute Neuts (auto) Absolute Nucleated RBC Nucleated RBC % (auto) Smear Tech's Comments Smear Path Review PT INR APTT PTT (Heparin Protocol) D-Dimer VBG pH VBG pCO2 VBG pO2 VBG HCO3 VBG O2 Saturation VBG Base Excess Sodium 142 Potassium 4.0 Chloride 109 H Carbon Dioxide 19 L Anion Gap 18 BUN 119 H* Creatinine 6.74 H* Estim Creat Clear Calc 22.8 Estimated GFR 9 POC Glucose Random Glucose 184 H Lactic Acid 0.8 Calcium 7.5 L Phosphorus 5.2 H Magnesium Ferritin 515 H Total Bilirubin AST ALT Alkaline Phosphatase Lactate Dehydrogenase Total Creatine Kinase Troponin I High Sens C-Reactive Protein B-Natriuretic Peptide Total Protein Albumin Lipase Procalcitonin Urine Color Urine Appearance Urine pH Ur Specific [place] Urine Protein Urine Glucose (UA) Urine Ketones Urine Blood Urine Nitrite Ur Leukocyte Esterase Urine RBC Urine WBC Ur Squamous Epith Cells Urine Bacteria Hyaline Casts Granular Casts Urine Yeast Stool Occult Blood Random Vancomycin Lyme Screen IgG & IgM Lyme Progressive Test C. difficile Toxin A&B C. difficile Antigen C. difficile Interpret Coronavirus (PCR) Influenza Type A (PCR) Influenza Type B (PCR) RSV RNA Qual (PCR) Blood Type Antibody Screen Crossmatch 05/15/20 05/15/20 05/15/20 05:40 05:40 05:40 WBC 3.3 L RBC 2.30 L Hgb 7.2 L Hct 23.1 L MCV 100.4 H MCH 31.3 MCHC 31.2 RDW 16.8 H Plt Count 94 L MPV 12.3 Immature Gran % (Auto) 1.2 H Neut % (Auto) 82.3 H Lymph % (Auto) 5.5 L [place] % (Auto) 6.4 Eos % (Auto) 4.0 Baso % (Auto) 0.6 Lymph # (Auto) 0.2 L [place] # (Auto) 0.2 Eos # (Auto) 0.1 Baso # (Auto) 0.0 Abs Immat Gran (auto) 0.04 H Absolute Neuts (auto) 2.7 Absolute Nucleated RBC 0.030 H Nucleated RBC % (auto) 0.9 H Smear Tech's Comments VERIFIED Smear Path Review PT INR APTT PTT (Heparin Protocol) D-Dimer 7040 VBG pH Cancelled VBG pCO2 Cancelled VBG pO2 Cancelled VBG HCO3 Cancelled VBG O2 Saturation Cancelled VBG Base Excess Cancelled Sodium Potassium Chloride Carbon Dioxide Anion Gap BUN Creatinine Estim Creat Clear Calc Estimated GFR POC Glucose Random Glucose Lactic Acid Calcium Phosphorus Magnesium Ferritin Total Bilirubin AST ALT Alkaline Phosphatase Lactate Dehydrogenase Total Creatine Kinase Troponin I High Sens C-Reactive Protein B-Natriuretic Peptide Total Protein Albumin Lipase Procalcitonin Urine Color Urine Appearance Urine pH Ur Specific [place] Urine Protein Urine Glucose (UA) Urine Ketones Urine Blood Urine Nitrite Ur Leukocyte Esterase Urine RBC Urine WBC Ur Squamous Epith Cells Urine Bacteria Hyaline Casts Granular Casts Urine Yeast Stool Occult Blood Random Vancomycin Lyme Screen IgG & IgM Lyme Progressive Test C. difficile Toxin A&B C. difficile Antigen C. difficile Interpret Coronavirus (PCR) Influenza Type A (PCR) Influenza Type B (PCR) RSV RNA Qual (PCR) Blood Type Antibody Screen Crossmatch 05/15/20 05/15/20 05/15/20 06:31 07:14 10:23 WBC RBC Hgb Hct MCV MCH MCHC RDW Plt Count MPV Immature Gran % (Auto) Neut % (Auto) Lymph % (Auto) [place] % (Auto) Eos % (Auto) Baso % (Auto) Lymph # (Auto) [place] # (Auto) Eos # (Auto) Baso # (Auto) Abs Immat Gran (auto) Absolute Neuts (auto) Absolute Nucleated RBC Nucleated RBC % (auto) Smear Tech's Comments Smear Path Review PT INR APTT PTT (Heparin Protocol) D-Dimer VBG pH 7.25 L VBG pCO2 41 VBG pO2 56 VBG HCO3 18 VBG O2 Saturation 84.0 VBG Base Excess -7.6 Sodium Potassium Chloride Carbon Dioxide Anion Gap BUN Creatinine Estim Creat Clear Calc Estimated GFR POC Glucose 179 H 183 H Random Glucose Lactic Acid Calcium Phosphorus Magnesium Ferritin Total Bilirubin AST ALT Alkaline Phosphatase Lactate Dehydrogenase Total Creatine Kinase Troponin I High Sens C-Reactive Protein B-Natriuretic Peptide Total Protein Albumin Lipase Procalcitonin Urine Color Urine Appearance Urine pH Ur Specific [place] Urine Protein Urine Glucose (UA) Urine Ketones Urine Blood Urine Nitrite Ur Leukocyte Esterase Urine RBC Urine WBC Ur Squamous Epith Cells Urine Bacteria Hyaline Casts Granular Casts Urine Yeast Stool Occult Blood Random Vancomycin Lyme Screen IgG & IgM Lyme Progressive Test C. difficile Toxin A&B C. difficile Antigen C. difficile Interpret Coronavirus (PCR) Influenza Type A (PCR) Influenza Type B (PCR) RSV RNA Qual (PCR) Blood Type Antibody Screen Crossmatch 05/15/20 05/15/20 05/15/20 14:12 17:54 22:30 WBC RBC Hgb Hct MCV MCH MCHC RDW Plt Count MPV Immature Gran % (Auto) Neut % (Auto) Lymph % (Auto) [place] % (Auto) Eos % (Auto) Baso % (Auto) Lymph # (Auto) [place] # (Auto) Eos # (Auto) Baso # (Auto) Abs Immat Gran (auto) Absolute Neuts (auto) Absolute Nucleated RBC Nucleated RBC % (auto) Smear Tech's Comments Smear Path Review PT INR APTT PTT (Heparin Protocol) D-Dimer VBG pH VBG pCO2 VBG pO2 VBG HCO3 VBG O2 Saturation VBG Base Excess Sodium Potassium Chloride Carbon Dioxide Anion Gap BUN Creatinine Estim Creat Clear Calc Estimated GFR POC Glucose 207 H 201 H 166 H Random Glucose Lactic Acid Calcium Phosphorus Magnesium Ferritin Total Bilirubin AST ALT Alkaline Phosphatase Lactate Dehydrogenase Total Creatine Kinase Troponin I High Sens C-Reactive Protein B-Natriuretic Peptide Total Protein Albumin Lipase Procalcitonin Urine Color Urine Appearance Urine pH Ur Specific [place] Urine Protein Urine Glucose (UA) Urine Ketones Urine Blood Urine Nitrite Ur Leukocyte Esterase Urine RBC Urine WBC Ur Squamous Epith Cells Urine Bacteria Hyaline Casts Granular Casts Urine Yeast Stool Occult Blood Random Vancomycin Lyme Screen IgG & IgM Lyme Progressive Test C. difficile Toxin A&B C. difficile Antigen C. difficile Interpret Coronavirus (PCR) Influenza Type A (PCR) Influenza Type B (PCR) RSV RNA Qual (PCR) Blood Type Antibody Screen Crossmatch 05/16/20 05/16/20 05/16/20 02:09 05:20 05:20 WBC 3.5 L RBC 2.23 L Hgb 6.7 L* Hct 22.9 L MCV 102.7 H MCH 30.0 MCHC 29.3 L RDW 16.9 H Plt Count 100 L MPV 12.1 Immature Gran % (Auto) 1.4 H Neut % (Auto) 84.1 H Lymph % (Auto) 5.8 L [place] % (Auto) 5.5 Eos % (Auto) 2.9 Baso % (Auto) 0.3 Lymph # (Auto) 0.2 L [place] # (Auto) 0.2 Eos # (Auto) 0.1 Baso # (Auto) 0.0 Abs Immat Gran (auto) 0.05 H Absolute Neuts (auto) 2.9 Absolute Nucleated RBC 0.030 H Nucleated RBC % (auto) 0.9 H Smear Tech's Comments VERIFIED Smear Path Review PT INR APTT PTT (Heparin Protocol) D-Dimer 08813 VBG pH VBG pCO2 VBG pO2 VBG HCO3 VBG O2 Saturation VBG Base Excess Sodium Potassium Chloride Carbon Dioxide Anion Gap BUN Creatinine Estim Creat Clear Calc Estimated GFR POC Glucose 228 H Random Glucose Lactic Acid Calcium Phosphorus Magnesium Ferritin Total Bilirubin AST ALT Alkaline Phosphatase Lactate Dehydrogenase Total Creatine Kinase Troponin I High Sens C-Reactive Protein B-Natriuretic Peptide Total Protein Albumin Lipase Procalcitonin Urine Color Urine Appearance Urine pH Ur Specific [place] Urine Protein Urine Glucose (UA) Urine Ketones Urine Blood Urine Nitrite Ur Leukocyte Esterase Urine RBC Urine WBC Ur Squamous Epith Cells Urine Bacteria Hyaline Casts Granular Casts Urine Yeast Stool Occult Blood Random Vancomycin Lyme Screen IgG & IgM Lyme Progressive Test C. difficile Toxin A&B C. difficile Antigen C. difficile Interpret Coronavirus (PCR) Influenza Type A (PCR) Influenza Type B (PCR) RSV RNA Qual (PCR) Blood Type Antibody Screen Crossmatch 05/16/20 05/16/20 05/16/20 05:20 05:20 05:20 WBC RBC Hgb Hct MCV MCH MCHC RDW Plt Count MPV Immature Gran % (Auto) Neut % (Auto) Lymph % (Auto) [place] % (Auto) Eos % (Auto) Baso % (Auto) Lymph # (Auto) [place] # (Auto) Eos # (Auto) Baso # (Auto) Abs Immat Gran (auto) Absolute Neuts (auto) Absolute Nucleated RBC Nucleated RBC % (auto) Smear Tech's Comments Smear Path Review PT INR APTT PTT (Heparin Protocol) D-Dimer VBG pH VBG pCO2 VBG pO2 VBG HCO3 VBG O2 Saturation VBG Base Excess Sodium 141 Potassium 4.5 Chloride 108 Carbon Dioxide 18 L Anion Gap 20 BUN 117 H* Creatinine 7.69 H* Estim Creat Clear Calc 20.0 Estimated GFR 8 POC Glucose Random Glucose 253 H D Lactic Acid 0.8 Calcium 7.7 L Phosphorus 6.0 H Magnesium Ferritin Total Bilirubin 1.0 AST 24 ALT 21 Alkaline Phosphatase 37 L Lactate Dehydrogenase Total Creatine Kinase Troponin I High Sens C-Reactive Protein 13.57 H B-Natriuretic Peptide 247 H Total Protein 5.7 L Albumin 2.9 L Lipase Procalcitonin Urine Color Urine Appearance Urine pH Ur Specific [place] Urine Protein Urine Glucose (UA) Urine Ketones Urine Blood Urine Nitrite Ur Leukocyte Esterase Urine RBC Urine WBC Ur Squamous Epith Cells Urine Bacteria Hyaline Casts Granular Casts Urine Yeast Stool Occult Blood Random Vancomycin Lyme Screen IgG & IgM Lyme Progressive Test C. difficile Toxin A&B C. difficile Antigen C. difficile Interpret Coronavirus (PCR) Influenza Type A (PCR) Influenza Type B (PCR) RSV RNA Qual (PCR) Blood Type Antibody Screen Crossmatch 05/16/20 05/16/20 05/16/20 05:20 05:20 06:13 WBC RBC Hgb Hct MCV MCH MCHC RDW Plt Count MPV Immature Gran % (Auto) Neut % (Auto) Lymph % (Auto) [place] % (Auto) Eos % (Auto) Baso % (Auto) Lymph # (Auto) [place] # (Auto) Eos # (Auto) Baso # (Auto) Abs Immat Gran (auto) Absolute Neuts (auto) Absolute Nucleated RBC Nucleated RBC % (auto) Smear Tech's Comments Smear Path Review PT INR APTT PTT (Heparin Protocol) D-Dimer VBG pH 7.22 L VBG pCO2 40 VBG pO2 71 VBG HCO3 17 VBG O2 Saturation 91.0 VBG Base Excess -9.3 Sodium Potassium Chloride Carbon Dioxide Anion Gap BUN Creatinine Estim Creat Clear Calc Estimated GFR POC Glucose Random Glucose Lactic Acid Calcium Phosphorus Magnesium Ferritin Total Bilirubin AST ALT Alkaline Phosphatase Lactate Dehydrogenase Total Creatine Kinase Troponin I High Sens C-Reactive Protein B-Natriuretic Peptide Total Protein Albumin Lipase Procalcitonin 2.69 Urine Color Urine Appearance Urine pH Ur Specific [place] Urine Protein Urine Glucose (UA) Urine Ketones Urine Blood Urine Nitrite Ur Leukocyte Esterase Urine RBC Urine WBC Ur Squamous Epith Cells Urine Bacteria Hyaline Casts Granular Casts Urine Yeast Stool Occult Blood Random Vancomycin Lyme Screen IgG & IgM Lyme Progressive Test C. difficile Toxin A&B C. difficile Antigen C. difficile Interpret Coronavirus (PCR) Influenza Type A (PCR) Influenza Type B (PCR) RSV RNA Qual (PCR) Blood Type A Negative Antibody Screen NEGATIVE Crossmatch See Detail 05/16/20 05/16/20 05/16/20 08:54 10:20 12:10 WBC RBC Hgb Hct MCV MCH MCHC RDW Plt Count MPV Immature Gran % (Auto) Neut % (Auto) Lymph % (Auto) [place] % (Auto) Eos % (Auto) Baso % (Auto) Lymph # (Auto) [place] # (Auto) Eos # (Auto) Baso # (Auto) Abs Immat Gran (auto) Absolute Neuts (auto) Absolute Nucleated RBC Nucleated RBC % (auto) Smear Tech's Comments Smear Path Review PT INR APTT PTT (Heparin Protocol) D-Dimer VBG pH VBG pCO2 VBG pO2 VBG HCO3 VBG O2 Saturation VBG Base Excess Sodium Potassium Chloride Carbon Dioxide Anion Gap BUN Creatinine Estim Creat Clear Calc Estimated GFR POC Glucose 200 H 194 H 181 H Random Glucose Lactic Acid Calcium Phosphorus Magnesium Ferritin Total Bilirubin AST ALT Alkaline Phosphatase Lactate Dehydrogenase Total Creatine Kinase Troponin I High Sens C-Reactive Protein B-Natriuretic Peptide Total Protein Albumin Lipase Procalcitonin Urine Color Urine Appearance Urine pH Ur Specific [place] Urine Protein Urine Glucose (UA) Urine Ketones Urine Blood Urine Nitrite Ur Leukocyte Esterase Urine RBC Urine WBC Ur Squamous Epith Cells Urine Bacteria Hyaline Casts Granular Casts Urine Yeast Stool Occult Blood Random Vancomycin Lyme Screen IgG & IgM Lyme Progressive Test C. difficile Toxin A&B C. difficile Antigen C. difficile Interpret Coronavirus (PCR) Influenza Type A (PCR) Influenza Type B (PCR) RSV RNA Qual (PCR) Blood Type Antibody Screen Crossmatch Preliminary micro results at discharge 05/14/20 14:16 Blood Culture - Preliminary Blood - Venous No growth after 48 hours. 05/14/20 Unknown Blood Culture - Preliminary Blood - Venous No growth after 48 hours. Discharge Plan Discharge Date/Time: 05/16/20 16:33 Patient Disposition: Referrals: Physician,Unknown [Primary Care Provider] - Discharge Medications: No Action Narcan 4 mg/actuation spray,non-aerosol 4 mg intranasal Q2M PRN (Reason: opioid overdose) Qty: 2 RF: 1 dicyclomine 20 mg tablet 20 mg PO QID Qty: 120 RF: 8 (DME) facial-body wipes Misc See Rx Instructions .ROUTE .MEDSUPPLY Qty: 384 RF: 0 (DME) disposable gloves [Nitrile Exam Gloves] Misc See Rx Instructions .ROUTE .MEDSUPPLY Qty: 1000 RF: 0 miscellaneous medical supply Misc See Rx Instructions miscellaneous .COMPLEX Qty: 1 RF: 0 cholecalciferol (vitamin D3) 25 mcg (1,000 unit) capsule 25 mcg PO DAILY Qty: 90 RF: 8 levothyroxine 75 mcg tablet 37.5 mcg PO DAILY RF: 0 torsemide 20 mg tablet 40 mg PO DAILY Qty: 0 RF: 0 Humulin R U-500 (Conc) Kwikpen 500 unit/mL (3 mL) insulin pen 75 unit subcut BID Qty: 0 RF: 0 spironolactone 25 mg Tablet 25 mg PO DAILY Qty: 30 RF: 0 lisinopril 5 mg Tablet 5 mg PO DAILY Qty: 30 RF: 0 loperamide 2 mg Capsule 2 mg PO Q4H PRN (Reason: Diarrhea) RF: 0 acetaminophen [Tylenol Extra Strength] 500 mg tablet 1,000 mg PO Q8-10H PRN (Reason: Pain) RF: 0 aspirin [Adult Low Dose Aspirin] 81 mg tablet,delayed release (DR/EC) 81 mg PO DAILY RF: 0 calcium carbonate 500 mg calcium (1,250 mg) tablet 500 mg PO DAILY RF: 0 clonidine HCl 0.1 mg tablet 0.1 mg PO BID RF: 0 cyclobenzaprine 5 mg tablet 5 mg PO TID PRN (Reason: Pain) RF: 0 ferrous sulfate 325 mg (65 mg iron) tablet 325 mg PO DAILY RF: 0 fluticasone propionate [Allergy Relief (fluticasone)] 50 mcg/actuation spray,suspension 1 spray intranasal BID RF: 0 melatonin 3 mg capsule 6 mg PO BEDTIME PRN (Reason: Sleep) RF: 0 omeprazole 20 mg capsule,delayed release(DR/EC) 20 mg PO BID RF: 0 pravastatin 10 mg tablet 10 mg PO BEDTIME RF: 0 topiramate 100 mg tablet 100 mg PO BEDTIME RF: 0 trazodone 50 mg tablet 50 mg PO BEDTIME PRN (Reason: Sleep) RF: 0 morphine 15 mg tablet 15 mg PO Q6H PRN (Reason: pain) 30 Days Qty: 120 RF: 0 Discharge Date/Time: 05/16/20 16:33
== END 2020-05-16 16:33 | disposition expired | DRG 207 ==
LOC: HO.ED 15:53 → HO.ICU 19:17
PROVIDERS: Internal Medicine Pulmonary Disease; Nurse Practitioner Primary Care; Physician Assistant; Physician Assistant Medical; Registered Nurse Community Health; Admitting Provider Internal Medicine Cardiovascular Disease; Emergency Provider Emergency Medicine; PCP Internal Medicine; Visit Provider Anesthesiology
DX: U07.1 COVID-19 (principal); E11.10 Type 2 diabetes mellitus with ketoacidosis without coma; J80 Acute respiratory distress syndrome; J12.82 Pneumonia due to coronavirus disease 2019; N17.9 Acute kidney failure, unspecified; I13.0 Hypertensive heart and chronic kidney disease with heart failure and stage 1 through stage 4 chronic kidney disease, or unspecified chronic kidney disease; E66.2 Morbid (severe) obesity with alveolar hypoventilation; Z68.44 Body mass index [BMI] 60.0-69.9, adult; D61.818 Other pancytopenia; E11.42 Type 2 diabetes mellitus with diabetic polyneuropathy; F17.210 Nicotine dependence, cigarettes, uncomplicated; E11.22 Type 2 diabetes mellitus with diabetic chronic kidney disease; I50.813 Acute on chronic right heart failure; L30.8 Other specified dermatitis; Z87.442 Personal history of urinary calculi; Z89.511 Acquired absence of right leg below knee; N18.32 Chronic kidney disease, stage 3b; D63.1 Anemia in chronic kidney disease; Z71.6 Tobacco abuse counseling; Z88.0 Allergy status to penicillin; Z79.4 Long term (current) use of insulin; Z79.51 Long term (current) use of inhaled steroids; Z79.82 Long term (current) use of aspirin; Z79.890 Hormone replacement therapy; Z79.899 Other long term (current) drug therapy
CPT/HCPCS: 0241U; 36415; 36430; 70450; 71045; 80048; 80053; 80202; 81001; 81003; 82040; 82272; 82550; 82728; 82803; 82947; 83605; 83615; 83690; 83735; 83880; 84100; 84145; 84484; 85025; 85027; 85060; 85379; 85610; 85730; 86140; 86618; 86850; 86900; 86901; 86923; 87040; 87070; 87077; 87086; 87186; 87205; 87324; 87449; 93005; 93970; 94002; 94003; 94640; 94645; 94660; 94799; 96374; 96375; 96376; 99284; 99291; 99292; C1758; J0131; J0456; J0610; J0692; J1100; J1170; J1940; J1956; J2060; J2185; J2250; J3010; J3260; J3370; J3490; P9016; P9047